=== PATIENT | male | born 1975 | race Caucasian/White ===

== ENCOUNTER 2024-09-13 15:39 | Emergency (ER) | payer BC, SELFPAY ==
[2024-09-13 15:42] VITALS: BP 158/108; PULSE 78; RESP 16; TEMP 36.4; O2SAT 99; BMI 29.7
--- NOTE | 2024-09-13 16:32 | EDS_ITS ---
HPI History of Present Illness Chief Complaint: Fatigue [facility] Medical History (Updated 09/13/24 @ 16:38 by Betty Arvealo) History of traumatic brain injury Home Medications ?Medication ?Instructions ?Recorded ?Last Taken ?Type NK 09/13/24 Unknown History Allergy/AdvReac Type Severity Reaction Status Date / Time No Known Allergies Allergy Verified 09/13/24 15:42 Social History Smoking Status: Never smoker EXAM Physical Exam Const Vital Signs: 09/13/24 15:42 09/13/24 16:27 09/13/24 17:40 Temperature 97.5 F L Temperature Source Temporal Pulse Rate 78 83 Respiratory Rate 16 18 Respiratory Effort Normal Respiratory Pattern Normal Blood Pressure 158/108 H 147/97 H Blood Pressure Mean 124 113 Pulse Ox 99 99 Oxygen Delivery Method Room Air Room Air 09/13/24 19:00 09/13/24 21:00 Temperature Temperature Source Pulse Rate 79 94 Respiratory Rate 21 H 16 Respiratory Effort Respiratory Pattern Blood Pressure 133/94 H Blood Pressure Mean 107 Pulse Ox 99 99 Oxygen Delivery Method Room Air MDM MDM MDM Narrative Medical decision making narrative: HISTORY OF PRESENT ILLNESS: 48 M here with fatigue. He states he has been excessively fatigued. He denies any specific symptom such as headache, chest pain, vomiting, diarrhea, fever, cough, abdominal pain, focal numbness or weakness. Per the family the patient's had 2 to 3 months of increasing somnolence, fatigue. Notes he is not doing his usual amount of work. 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 They state he is proximately 90 minutes from home when he called his that he could not drive home because he was excessively fatigued. He stopped at a truck stop and slept. This continued for a day and a half until his drove down to pick him up. They are concerned about his change in behavior and that is excessive fatigue may be related to a medical issue or psychiatric issue. Patient denies suicidal ideation, homicidal ideation, auditory visual donations. Does have access to firearms out of any wish to commit suicide REVIEW OF SYSTEMS: Pertinent positives: Fatigue Pertinent negatives: As per HPI PHYSICAL EXAM: Nursing triage notes reviewed, Vital signs reviewed Constitutional: please see mdm HENT: MMM Eyes: Pupils equal round and reactive to light, Extraocular muscles intact Neck: No stridor, no JVD, full neck ROM Lungs: Clear to auscultation, No wheezing or rales. No increased work of breathing, no conversational dyspnea, no accessory muscle use, no nasal flaring. No respiratory distress noted Heart: Regular rate and rhythm, No murmurs, No rubs and No gallops, 2+ distal pulses (radial, femoral, posterior tibial) in all extremities Abdomen: Soft, there is no tenderness, rigidity, rebound or guarding, no obvious peritoneal signs, no palpable pulsatile abdominal masses, no auscultated abdominal bruit : No CVAT Extremities: No edema Neuro: No new focal neurological deficits, cranial nerves II through XII intact, 5/5 strength in all present extremities. Intact sensation to light touch in all present extremities, 2+ reflexes bilateral patella tendons. Skin: No rash or lesions noted Psych: Blunted affect, decreased mood, tearful when walked in, does not appear to be responding to internal stimuli, goal-directed thought process MEDICAL DECISION MAKING: Chief Complaint: Fatigue, depression External records reviewed: No recent ED visits or hospitalizations noted, reviewed allergies, problem list, vital signs and current medications Factors affecting care: none Social determinants of health: Denies illicit drug History obtained from others: Family Consults: Neurosurgery spoke with Dr. Orozco at [facility] who agreed to accept the patient ED to ED transfer. MDM Narrative: The patient was initially hypertensive with a blood pressure 158/108, afebrile, nontoxic-appearing. Exam with out focal neurologic deficits. I considered the following differential diagnosis: ICH, metabolic or infectious encephalopathy, psychiatric issue (depression) ALL IMAGES (IF OBTAINED) HAVE BEEN PERSONALLY REVIEWED AND INTERPRETED BY MYSELF. CT scan of the brain showed brain mass CBC showed leukocytosis suggestive of systemic inflammation, no anemia or thrombocytopenia BMP with no significant lecture abnormalities, noted hemolyzed hide per kalemia, no acute kidney injury LFTs show no evidence of hepatobiliary pathology. Urine tox cream negative Serum alcohol negative TSH low not suggestive of hypothyroidism The patient and/or family, caregivers express understanding. The patient and/or family, caregivers agrees with the plan. Shared decision making: I will have a discussion with the patient and or visitors regarding risk/benefits of further testing or admission. They will be made aware of of the risk/benefits inherent in this decision they will be given the opportunity to voice understanding. Total critical care time today provided was at least 0 minutes. This excludes separately billable procedures. Critical care time (if documented) is secondary to the patient having high probability of clinically significant/life threatening deterioration in the patient's condition which required my urgent intervention. Impression: 1. Change in behavior 2. Brain mass Dispo: Transfer to higher level [facility] to undergo further neurologic/neurosurgical/oncologic evaluation This note was generated with Familiar dictation software. It may contain incorrect words, spelling, and punctuation that were not noted in review of the chart prior to signing. Lab Data Labs: Laboratory Results - last 24 hr 09/13/24 09/13/24 16:30 17:50 WBC 17.6 H RBC 5.20 Hgb 17.1 H Hct 49.5 MCV 95.2 H MCH 32.9 H MCHC 34.5 RDW Std Deviation 46.5 H RDW Coeff of Ed 13.2 Plt Count 250 MPV 10.7 Immature Gran % (Auto) 0.500 Neut % (Auto) 81.1 H Lymph % (Auto) 10.4 L Angelina % (Auto) 7.5 Eos % (Auto) 0.1 Baso % (Auto) 0.4 Absolute Neuts (auto) 14.2 H Absolute Lymphs (auto) 1.83 Nucleated RBC % 0 Sodium 139 Potassium 5.3 H Chloride 106 Carbon Dioxide 23.0 Anion Gap 10 BUN 23 H Creatinine 1.02 Estim Creat Clear Calc 109.99 Est GFR (MDRD) Af Amer 101 Est GFR (MDRD) Non-Af 83 BUN/Creatinine Ratio 22.5 H Glucose 118 H Calcium 9.1 Total Bilirubin 0.90 Direct Bilirubin < 0.05 AST 46 H ALT 24 Alkaline Phosphatase 72 Troponin I High Sens 3 Total Protein 7.8 Albumin 3.7 Globulin 4.1 TSH 0.338 L Free T4 1.42 Free T3 pg/dL 1.8 L Urine Opiates Screen NEGATIVE Urine Methadone Screen NEGATIVE Ur Barbiturates Screen NEGATIVE Ur Phencyclidine Scrn NEGATIVE Ur Amphetamines Screen NEGATIVE MDMA (Ecstasy) Screen NEGATIVE U Benzodiazepines Scrn NEGATIVE Urine Cocaine Screen NEGATIVE U Cannabinoids Screen NEGATIVE Ur Drug Screen Comment Ethyl Alcohol < 3.0 Radiography Diagnostic Testing: Clinical Impression(s) from Imaging Studies Brain CT 09/13/24 16:52 IMPRESSION: Right greater than left frontal mass with associated coarse calcification on the left. This involves the genu of the corpus callosum. There is effacement of the frontal horns of the lateral ventricles. Recommend follow-up MRI with and without IV contrast to exclude neoplasm. Electronically Signed: Helder Phillips MD at 18:31 EST , Discharge Plan Triage Chief Complaint: Fatigue ED Provider: Hugo Paul Dx/Rx/DC Orders Prescriptions: No Action NK Primary Care Provider: Ez Lee Referrals: Ez Lee MD [Primary Care Provider] - Print Language: Citizen Of [place]
--- NOTE | 2024-09-13 16:52 | CT_ITS ---
STUDY: CT BRAIN WITHOUT CONTRAST REASON FOR EXAM: Male, 48 years old. change in behavior RADIATION DOSAGE (If Supplied By Facility): CTDIvol = ( 44.99 ) mGy, DLP = ( 846.73 ) mGycm TECHNIQUE: Transaxial CT imaging of the brain was performed without administration of intravenous contrast material. Individualized dose optimization techniques were used for this CT. The protocol utilizes one or more of the following dose reduction techniques: automated exposure control, adjustment of mA and/or kV according to patient size,and/or use of iterative reconstruction technique. COMPARISON: No relevant priors. FINDINGS: Normal soft tissue structures. Remote Right frontal patrizia hole healed. Possible old left frontal patrizia holes also. Ill-defined hypodense mass right greater than left frontal lobe involving the genu of the corpus callosum measuring 4.9 x 7.1 cm in AP and transverse dimensions. Coarse calcifications noted along the margin in the left frontal lobe. Normal white matter tracts of the cerebral hemispheres. Normal basal ganglia and thalami. Normal brainstem. Normal cerebellum. There is no intracranial hemorrhage. There are no findings of an acute ischemic infarction. Normal visualized paranasal sinuses. CT/Brain/Head without Contrast IMPRESSION: Right greater than left frontal mass with associated coarse calcification on the left. This involves the genu of the corpus callosum. There is effacement of the frontal horns of the lateral ventricles. Recommend follow-up MRI with and without IV contrast to exclude neoplasm. Electronically Signed: Helder Phillips MD at 18:31 EST ,
[2024-09-13 17:18] LABS: Absolute Lymphocyte Count 1.83 X10^3/uL (0.83-4.51); Absolute Neutrophil Count 14.2 X10^3/uL (2.0-7.7); Basophil# 0.07 X10^3/uL; Basophil% 0.4 % (0-1); Eosinophil# 0.02 X10^3/uL; Eosinophils% 0.1 % (0-5); Hematocrit 49.5 % (40-54); Hemoglobin 17.1 g/dL (13.0-16.5); Lymphocyte # 1.83 X10^3/ul (0.83-4.51); Lymphocyte % 10.4 % (19-41); Mean Corp Hgb Conc 34.5 g/dL (32-36); Mean Corpuscular Hgb 32.9 pg (27.0-32.0); Mean Corpuscular Volume 95.2 fL (80-94); Mean Platelet Vol. 10.7 fl (6.2-12.0); Monocyte# 1.31 X10^3/uL; Monocyte% 7.5 % (0-10); NRBC Flagged by Analyzer 0 % (0-5); Neutrophil # 14.23 X10^3/uL (2.7-7.7); Neutrophil % 81.1 % (47-70); Platelet Count 250 K/mm3 (150-450); RBC Distribution Width CV 13.2 % (11.6-14.6); RBC Distribution Width SD 46.5 fl (35.1-43.9); White Blood Count 17.6 K/mm3 (4.4-11.0)
[2024-09-13 17:28] LABS: Alcohol, Blood (Medical)-Serum < 3.0 mg/dL
[2024-09-13 17:40] VITALS: BP 147/97; PULSE 83; RESP 18; O2SAT 99
[2024-09-13 18:33] LABS: Amphetamine Urine VISTA NEGATIVE (<1000 ng/mL); Barbiturate Urine VISTA NEGATIVE (< 200 ng/mL); Benzodiazepine Urine VISTA NEGATIVE (< 200 ng/mL); Cocaine Urine VISTA NEGATIVE (< 300 ng/mL); Ecstacy Urine VISTA NEGATIVE (< 500 ng/mL); Methadone Urine VISTA NEGATIVE (< 300 ng/mL); PCP Urine VISTA NEGATIVE (< 25 ng/mL); THC Urine VISTA NEGATIVE (< 50 ng/mL); Vista UDS pH Range 5
[2024-09-13 18:33] LABS: AST(SGOT) 46 U/L (15-37); Alanine Aminotransfer ALT/SGPT 24 U/L (16-61); Albumin, Serum 3.7 g/dL (3.2-5.0); Alkaline Phosphatase 72 U/L (45-117); Anion Gap 10 (5-15); BUN 23 mg/dL (7-18); BUN/Creat Ratio 22.5 RATIO (10-20); Bilirubin, Direct < 0.05 mg/dL (0.00-0.30); Calcium,Total 9.1 mg/dL (8.5-10.1); Chloride 106 mmol/L (98-107); Creatinine, Serum 1.02 mg/dL (0.70-1.30); EST Glomerular Filtration Rate 83 mL/min (>60); Est Glom Filt Rate - Afr Amer 101 mL/min (>60); Estimated Creatinine Clearance 109.99 ml/min; Free T3 1.8 pg/mL (2.18-3.98); Globulin 4.1 g/dL (2.2-4.2); Glucose 118 mg/dL (74-106); Potassium 5.3 mmol/L (3.5-5.1); Protein, Total 7.8 g/dL (6.4-8.2); Sodium Level 139 mmol/L (136-145); T4 Free Direct 1.42 ng/dL (0.76-1.46); Thyroid Stim Hormone (TSH) 0.338 uIU/mL (0.358-3.740); Troponin-I HS 3 pg/mL (3.0-78.0)
[2024-09-13 19:00] VITALS: PULSE 79; RESP 21; O2SAT 99
[2024-09-13 21:00] VITALS: BP 133/94; PULSE 94; RESP 16; O2SAT 99
[2024-09-13] MEDS: dexAMETHasone 10 MG/ML Vial IV (21:46)
[2024-09-13] MEDS: Metoclopramide 10 MG/2 ML Vial 5 MG IV (21:46)
[2024-09-13 22:49] VITALS: BP 158/105; PULSE 98; RESP 26; TEMP 36.6; O2SAT 99
== END 2024-09-13 22:51 | disposition short-term general hospital (02) ==
PROVIDERS: Emergency Provider Emergency Medicine; PCP Family Medicine; Referring Provider Emergency Medicine; Visit Provider Emergency Medicine
DX: G93.9 Disorder of brain, unspecified (principal); R46.89 Other symptoms and signs involving appearance and behavior; Z87.820 Personal history of traumatic brain injury
CPT/HCPCS: 70450; 80048; 80076; 80307; 82077; 84439; 84443; 84481; 84484; 85025; 93005; 96374; 96375; 99284

== ENCOUNTER → 2024-10-18 | Outpatient (CLI) | payer BC, SELFPAY ==
--- NOTE | 2024-10-18 15:03 | MRI_ITS ---
STUDY: MRI BRAIN WITH AND WITHOUT CONTRAST REASON FOR EXAM: Male, 48 years old. glioblastoma -- eval current extent of disease TECHNIQUE: Standardized multiplanar fat and water weighted pulse sequences were obtained. IV 20ml Clariscan was administered for the contrast portion of the examination. COMPARISON: September 14, 2024 FINDINGS: There is a large heterogeneously enhancing mass with focal cystic or necrotic component involving both frontal lobes with involvement of the genu of the corpus callosum measuring approximately 3.83 x 4.8 x 3.72 cm with associated vasogenic edema in both frontal lobes more pronounced on the right. . There are also bilateral 4 to 5 mm enhancing nodules in the frontal lobes also likely metastatic.. There is a heterogeneously enhancing nodule in the left thalamus measuring approximately 1.23 x 1.29 cm most likely representing metastasis. . There is no extra-axial fluid accumulation. Normal flow voids within the major intracranial circulation suggesting patency by spin echo criteria. Normal venous enhancement. There is no enhancing intra-axial or extra-axial abnormality. Normal sella turcica, pituitary gland, infundibular stalk, optic chiasm and hypothalamus. Normal tectal plate and pineal gland. Normal midbrain, armen and medulla. Normal cerebellum. Normal basal cisterns. Normal bilateral temporal bones. Normal bilateral internal auditory canals. No demonstrated orbital abnormality, within the constraints of a routine brain study. Normal visualized paranasal sinuses. Normal calvarium and skull base. Normal visualized soft tissue structures. Normal visualized upper cervical spine. The primary lesion in the midline is not changed significantly in size since previous exam nor are the small metastatic nodules in the frontal lobes. The left thalamic lesion has increased in size and demonstrates increasing cystic or necrotic changes No new lesions are observed MRI/Brain W/WO Contrast IMPRESSION: Relatively stable appearance to primary GBM with small bilateral frontal lobe metastases. Thalamic metastasis has increased in size slightly and demonstrates evolving cystic or necrotic changes since prior exam. Electronically Signed: Terry Brand MD at 17:33 EST ,
== END | disposition home or self-care (01) ==
LOC: MRI 15:02
PROVIDERS: PCP Family Medicine; Referring Provider Student in an Organized Health Care Education/Training Program; Visit Provider Student in an Organized Health Care Education/Training Program
DX: C71.1 Malignant neoplasm of frontal lobe (principal)
CPT/HCPCS: 70553; A9575; A4216

== ENCOUNTER → 2024-10-31 | Outpatient (CLI) | payer BC, SELFPAY ==
[2024-10-31] MEDS: Pentamidine Isethionate 300 MG, Water For Injection,Sterile 6 ML INHALATION (13:55)
== END | disposition home or self-care (01) ==
LOC: PSN 13:38
PROVIDERS: PCP Family Medicine; Referring Provider Nurse Practitioner Family; Visit Provider Nurse Practitioner Family
DX: C71.9 Malignant neoplasm of brain, unspecified (principal); Z29.89 Encounter for other specified prophylactic measures
CPT/HCPCS: 94642

== ENCOUNTER → 2024-11-28 | Outpatient (CLI) | payer BC, SELFPAY ==
[2024-11-28] MEDS: Pentamidine Isethionate 300 MG, Water For Injection,Sterile 6 ML INHALATION (14:02)
== END | disposition home or self-care (01) ==
LOC: PSN 13:50
PROVIDERS: PCP Family Medicine; Referring Provider Nurse Practitioner Family; Visit Provider Nurse Practitioner Family
DX: C71.9 Malignant neoplasm of brain, unspecified (principal); Z29.89 Encounter for other specified prophylactic measures
CPT/HCPCS: 77386; 94642

== ENCOUNTER → 2024-12-26 | Outpatient (CLI) | payer BC, SELFPAY ==
[2024-12-26] MEDS: Pentamidine Isethionate 300 MG, Water For Injection,Sterile 6 ML INHALATION (13:20)
== END | disposition home or self-care (01) ==
LOC: PSN 12:54
PROVIDERS: PCP Family Medicine; Referring Provider Nurse Practitioner Family; Visit Provider Nurse Practitioner Family
DX: C71.9 Malignant neoplasm of brain, unspecified (principal); Z29.89 Encounter for other specified prophylactic measures
CPT/HCPCS: 94642

== ENCOUNTER → 2025-01-07 | Outpatient (CLI) | payer BC, SELFPAY ==
--- NOTE | 2025-01-07 13:40 | MRI_ITS ---
PROCEDURE: BRAIN W/WO CONTRAST 01/07/2025 REASON FOR EXAM: GLIOBLASTOMA, S/P TREATMENT, EVAL DISEASE EXTENT. Status post surgery on September 21, 2024. Interim treatment with radiation therapy and chemotherapy. TECHNIQUE: Multiplanar, multisequence MRI of the brain without and with the administration of 20 mL of intravenous Clariscan. COMPARISON: MRI of the brain without and with contrast dated October 18, 2024. 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 The lesion is slightly more predominant on the right side. Previous maximum diameter coordinates showed a mass of 4.7 cm transverse by 4.0 cm AP by 4.3 cm craniocaudal. When measured similarly on the current study, along the same vectors the mass-lesion is approximated at 4.1 cm x 3.3 cm by 4.3 cm. The lesion again shows considerable central necrosis. 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 Multiple scattered abutting subcentimeter enhancing daughter nodules in the best radiata of both frontal lobes have diminished slightly overall. The surrounding infiltrating bifrontotemporal bright T2 signal changes with mass effect extending into the best radiata of both frontal lobes, most severe in the right superior to mid frontal of areas with extension out to a subcortical level, and compatible with tumoral infiltration and/or vasogenic interstitial edema, have shown considerable diminution and is evidenced by decreased mass effect and lessened effacement upon the frontal horns and bodies of the lateral ventricles. Lesser involvement of the right thalamus with extension down to the right cerebral peduncle and top of the midbrain is also noted. Patchy diffusion restriction in the areas of abnormal enhancement persists. No interim appearance of any hemorrhagic component is identified. There is no evidence of development of subdural hematoma. There is no evidence of uncal herniation and there is no evidence of cerebellar tonsillar herniation. There is no evidence of metastatic involvement of the skull. MRI/Brain W/WO Contrast IMPRESSION: Slight diminution in size of the central mass and decreased bifrontal daughter nodules with bilateral areas of enhancing involvement but with decreased peripheral mass effect with lessened effacement of the ventricular system of the known extensive bilateral glioblastoma multiforme due to decreased surrounding edema since Saurav toure 2024. Reading Location: [place] [id number]
== END | disposition home or self-care (01) ==
LOC: MRI 13:23
PROVIDERS: PCP Family Medicine; Referring Provider Student in an Organized Health Care Education/Training Program; Visit Provider Student in an Organized Health Care Education/Training Program
DX: C71.9 Malignant neoplasm of brain, unspecified (principal)
CPT/HCPCS: 70553; A9575

== ENCOUNTER → 2025-01-10 | Outpatient (CLI) | payer BC, SELFPAY ==
--- NOTE | 2025-01-10 15:49 | VDLE_ITS ---
Reason For Study Reason For Study: Swelling RIGHT LEFT GSV is normal. GSV is normal. RT PerV is compressible. CFV is compressible, spontaneous, phasic, competent, Acute deep vein thrombosis is noted in the CFV, FV, and demonstrates normal augmentation. POP V, T/P Trunk, PTV, Gastroc V, and Soleus V. It is FV is compressible, spontaneous, phasic, competent dilated and NONCOMPRESSIBLE. and demonstrates normal augmentation. Procedure POP V is compressible, spontaneous, phasic, competent This is a venous duplex using B-mode, color flow and and demonstrates normal augmentation. spectral Doppler. T/P Trunk is compressible. Exam performed in department. PTV is compressible. A preliminary report was called and/or faxed to Rachel, LT PerV is compressible. Dr. Dallas's Office. VL/Venous Duplex US - Abhishek Extrem Interpretation Summary Acute deep vein thrombosis noted in the right common femoral vein, femoral vein , popliteal vein, tibioperoneal trunk vein, posterior tibial vein, gastrocnemius vein, soleus vein. Deep veins of the left lower extremity are patent and compressible segmentally. There is no evidence of left lower extremity deep vein thrombosis. The bilateral great saphenous veins appear baeza nt and compressible segmentally. Ordering Physician: Geoff Dallas Referring Physician: MD Jesus Ez Performed By: Radha Bills RVT
== END | disposition home or self-care (01) ==
LOC: CVS 15:48
PROVIDERS: PCP Family Medicine; Referring Provider Internal Medicine Medical Oncology; Visit Provider Internal Medicine Medical Oncology
DX: I82.411 Acute embolism and thrombosis of right femoral vein (principal); I82.431 Acute embolism and thrombosis of right popliteal vein; I82.441 Acute embolism and thrombosis of right tibial vein; I82.451 Acute embolism and thrombosis of right peroneal vein; I82.461 Acute embolism and thrombosis of right calf muscular vein; Z79.52 Long term (current) use of systemic steroids
CPT/HCPCS: 93970

== ENCOUNTER 2025-01-17 10:37 | Emergency (ER) | payer OTHER, SELFPAY ==
[2025-01-17 10:39] VITALS: BP 119/87; PULSE 110; RESP 18; TEMP 36.2; O2SAT 97
[2025-01-17 11:20] VITALS: BMI 31.8
[2025-01-17 11:39] LABS: Absolute Lymphocyte Count 1.21 X10^3/uL (0.83-4.51); Absolute Neutrophil Count 13.8 X10^3/uL (2.0-7.7); Basophil# 0.07 X10^3/uL; Basophil% 0.4 % (0-1); Eosinophil# 0.06 X10^3/uL; Eosinophils% 0.3 % (0-5); Hematocrit 46.9 % (40-54); Lymphocyte # 1.21 X10^3/ul (0.83-4.51); Mean Corp Hgb Conc 34.1 g/dL (32-36); Mean Corpuscular Hgb 34.1 pg (27.0-32.0); Mean Platelet Vol. 10.6 fl (6.2-12.0); Monocyte# 1.89 X10^3/uL; Monocyte% 10.9 % (0-10); NRBC Flagged by Analyzer 0 % (0-5); Neutrophil # 13.84 X10^3/uL (2.7-7.7); Neutrophil % 79.8 % (47-70); POSITIVE DIFFERENTIAL YES; Platelet Count 186 K/mm3 (150-450); RBC Distribution Width CV 14.3 % (11.6-14.6); RBC Distribution Width SD 52.1 fl (35.1-43.9); Red Blood Count 4.69 M/mm3 (4.6-6.2); White Blood Count 17.4 K/mm3 (4.4-11.0)
[2025-01-17] MEDS: 0.9% Normal Saline (1000mL) 1,000 ML 999 ML IV (11:42)
--- NOTE | 2025-01-17 11:50 | CT_ITS ---
PROCEDURE: ABDOMEN/PELVIS W IV CONT ONLY 01/17/2025 REASON FOR EXAM: RIGHT FLANK PAIN TECHNIQUE: Abdomen and pelvis CT with intravenous contrast. Coronal and Sagittal reconstruction series were provided. PATIENT PREPARATION: Per protocol ORAL CONTRAST TYPE: None. CONTRAST: Isovue-300 VOLUME: 76 mL Gauge IV One or more dose reduction techniques were used (e.g., Automated exposure control, adjustment of the mA and/or kV according to patient size, use of iterative reconstruction technique. RADIATION DOSE SUMMARY: CTDlvol: 17.5 mGy DLP: 1453.69 mGycm COMPARISON: None FINDINGS: Lung bases: Minimal bilateral pleural effusions slightly greater on the right side. Increased markings at the lung bases suggestive of either atelectasis and/or early infiltrate. Liver: Normal size. No mass. Gallbladder: Unremarkable Spleen: Normal size. Pancreas: Normal size without evidence of mass surrounding inflammation or ductal dilation. Adrenals: Unremarkable Kidneys: Normal renal sizes. No hydronephrosis. Bladder: Unremarkable Bilateral inguinal hernias containing fat right greater than left. Small umbilical hernia. Bowel: No bowel obstruction. Appendix: Unremarkable Lymph nodes: No suspicious lymph node enlargement. Vasculature: Mild diffuse atherosclerotic calcifications are noted. Peritoneum / Retroperitoneum: Unremarkable Bones: Loss of the normal lumbar lordosis. CT/Abdomen/Pelvis W IV Cont ONLY IMPRESSION: Small umbilical hernia and bilateral inguinal hernias containing fat right grea ter than left. Minimal bilateral pleural effusions with bibasilar atelectasis and/or early inf iltrate. Reading Location: [place] [id number]
--- NOTE | 2025-01-17 11:56 | EX.ED.DYSGE1 ---
HPI History of Present Illness Chief Complaint: Abd Pain Narrative Narrative: Chief complaint and HPI: 49-year-old male with past medical history of glioblastoma currently on monthly chemotherapy presents for evaluation of right flank pain. Patient follows with Dr. Dallas. History taken by patient as well as medical record. Patient is on daily prednisone for his glioblastoma. He started monthly chemotherapy which last dose was Tuesday. He states yesterday he developed right flank pain that disappeared but reoccurred today. He denies any fever, chills, shortness of breath, chest pain, nausea, vomiting, diarrhea, dysuria, testicular pain, back pain. Patient states he suffers from constipation but his bowel movements have actually been regular. On chart review, patient was just recently diagnosed with right lower extremity DVT. Ultrasound shows DVT in the CFV, FV, popliteal vein, T/P trunk, PTV, gastric venous and soleus. He is currently on Eliquis and states that he has not missed any of his doses. He states due to his glioblastoma he has luminal movement on the right which is why they believe he developed a blood clot. Review of systems: See HPI Medications: As listed on the chart Allergies: As listed on the chart PFSH: Per chart Vital signs: As listed on the chart. Reviewed. Physical exam: Gen: A&O x3, NAD Head: Normocephalic, atraumatic Eyes: No sclera icterus, conjunctiva clear ENT: Moist mucous membranes Neck: Trachea midline, No JVD CV: RRR, no murmurs, right lower extremity is swollen compared to the left-patient's baseline since being diagnosed with blood clot Resp: Lungs CTA BL, no w/r/c GI: Abd soft, distended-patient states that this is his baseline since being diagnosed with cancer, non-tender, no r/r/g : No CVA tenderness. Circumcised penis. No penile tenderness or discharge. No penile or testicular swelling. Normal lie and position of the testicles. No testicular tenderness, masses, or skin changes. No rashes. Musc: Full ROM, no deformity, back nontender Skin: Warm, dry Neuro: Alert, oriented, grossly intact, sensation intact Psych: Cooperative, appropriate mood and affect [facility] Medical History (Updated 01/17/25 @ 15:[address] Ye Sparks DO) Headache Long-term current use of steroids Encounter for education Need for pneumocystis prophylaxis Status post stereotactic brain biopsy Glioblastoma multiforme History of traumatic brain injury Home Medications ?Medication ?Instructions ?Recorded ?Last Taken ?Type acetaminophen 325 mg tablet 325 mg PO ONCE PRN 10/05/24 Unknown History (Tylenol) docusate sodium 100 mg capsule 100 mg PO QDAY PRN 10/11/24 Unknown History ondansetron 4 mg disintegrating 4 mg PO Q8H PRN nausea and 10/23/24 Unknown Rx tablet vomiting #30 tabs omeprazole 20 mg capsule,delayed 20 mg PO QDAY #30 caps 10/29/24 Unknown Rx release temozolomide 180 mg capsule 180 mg PO QDAY 11/30/24 Unknown History sennosides 8.6 mg-docusate sodium 1 tab-cap PO QHS #30 caps 01/04/25 Unknown Rx 50 mg capsule (Senna Plus) apixaban 5 mg (74 tabs) tablets in See Rx Instructions PO PER PKG DIR 01/10/25 Unknown Rx a dose pack (EliquLocalGuiding DVT-PE Treat #74 tabs 30D Start) dexamethasone 2 mg tablet 2 mg PO QDAY 01/10/25 Unknown History Allergy/AdvReac Type Severity Reaction Status Date / Time No Known Allergies Allergy Verified 01/17/25 10:39 Family History Father Parkinson's disease Social History Smoking Status: Never smoker alcohol intake: current alcohol intake frequency: holidays/special occasions only substance use type: does not use EXAM Physical Exam Const Vital Signs: 01/17/25 10:39 01/17/25 12:37 01/17/25 14:00 Temperature 97.2 F L Temperature Source Temporal Pulse Rate 110 H 95 89 Respiratory Rate 18 14 14 Blood Pressure 119/87 H 130/87 H 138/91 H Blood Pressure Mean 97 101 106 Pulse Ox 97 96 97 Oxygen Delivery Method Room Air Room Air Room Air 01/17/25 15:28 Temperature 98.4 F Temperature Source Pulse Rate 87 Respiratory Rate 15 Blood Pressure 134/90 H Blood Pressure Mean 104 Pulse Ox 94 Oxygen Delivery Method MDM MDM MDM Narrative Medical decision making narrative: 49-year-old male with past medical history of glioblastoma currently on monthly chemotherapy presents for evaluation of right flank pain. Differential diagnosis includes but is not limited to bowel gas pain, constipation, appendicitis, propagating DVT, urolithiasis, UTI. NS bolus ordered and abdominal pain workup ordered including CT abdomen and pelvis. Patient offered pain medication but declined. States his pain is minimal. CBC with a leukocytosis of 17.4. On previous review patient always has a leukocytosis. Patient is on steroids. No anemia or platelet abnormality. BMP without significant electrolyte abnormality or TOR. Hepatic panel unremarkable except for some mild AST elevation at 44. Patient not endorsing any right upper quadrant abdominal pain and is not tender on exam in the abdomen. He has mild lactic acidosis at 2.1. Patient receiving fluids. I do not suspect infectious etiology for this. Suspect mild dehydration. Lipase unremarkable. UA positive for blood but negative for UTI. CT abdomen pelvis shows small umbilical hernia and bilateral inguinal hernias containing fat right greater than left. Minimal bilateral pleural effusions with bibasilar atelectasis and/or early filtrate. Patient is not endorsing any fever, chills, URI symptoms, cough, shortness of breath, chest pain. Suspect atelectasis and not early infiltrate. On reevaluation, patient's pain is still minimal. Him and his are updated of all the results. Given that patient does follow with oncology, I will reach out to Dr. Dallas as there is no clear etiology at this time. Patient was discussed with Dr. Dallas and he agrees with discharge home. Patient was educated to monitor for worsening signs and symptoms. Return back to the ED if symptoms change or worsen. Follow-up with PCP as well as oncology. Confirmed understand the plan. Impression: 1. Right flank pain, unclear etiology 2. History of glioblastoma on steroids and chemotherapy Lab Data Labs: Laboratory Results - last 24 hr 01/17/25 01/17/25 01/17/25 11:00 11:40 13:15 WBC 17.4 H RBC 4.69 Hgb 16.0 Hct 46.9 MCV 100.0 H MCH 34.1 H MCHC 34.1 RDW Std Deviation 52.1 H RDW Coeff of Ed 14.3 Plt Count 186 MPV 10.6 Immature Gran % (Auto) 1.600 H Neut % (Auto) 79.8 H Lymph % (Auto) 7.0 L Story % (Auto) 10.9 H Eos % (Auto) 0.3 Baso % (Auto) 0.4 Absolute Neuts (auto) 13.8 H Absolute Lymphs (auto) 1.21 Nucleated RBC % 0 [address] Review May foll Sodium 137 Potassium 5.1 Chloride 101 Carbon Dioxide 21.3 Anion Gap 15 BUN 20 H Creatinine 1.03 Estim Creat Clear Calc 111.38 Est GFR (MDRD) Non-Af 88 BUN/Creatinine Ratio 19.1 Glucose 90 Lactic Acid 2.1 H Calcium 9.7 Total Bilirubin 0.43 Direct Bilirubin < 0.08 AST 44 H ALT 40 Alkaline Phosphatase 78 Total Protein 8.2 Albumin 4.0 Globulin 4.2 Lipase 56 Urine Color Yellow Urine Clarity Clear Urine pH 5.0 Ur Specific Fowler 1.020 Urine Protein 15 H Urine Glucose (UA) Normal Urine Ketones Negative Urine Occult Blood 10 H Urine Nitrite Negative Urine Bilirubin Negative Urine Urobilinogen Normal Ur Leukocyte Esterase Negative Urine RBC 0 SEEN Urine WBC 0 SEEN Ur Squamous Epith Cells 0 SEEN Urine Bacteria 0 SEEN Urine Mucus 0 SEEN Radiography Diagnostic Testing: Clinical Impression(s) from Imaging Studies Abdomen/Pelvis CT 01/17/25 11:50 IMPRESSION: Small umbilical hernia and bilateral inguinal hernias containing fat right greater than left. Minimal bilateral pleural effusions with bibasilar atelectasis and/or early infiltrate. Reading Location: [place] [id number] Discharge Plan Triage Chief Complaint: Abd Pain ED Provider: Ye Sparks Dx/Rx/DC Orders Clinical Impression: Acute right flank pain Instructions: ED Abdominal Pain Unkn Cause Male... Prescriptions: No Action acetaminophen [Tylenol] 325 mg tablet 325 mg PO ONCE PRN docusate sodium 100 mg capsule 100 mg PO QDAY PRN dexamethasone 2 mg tablet 2 mg PO QDAY ondansetron 4 mg tablet,disintegrating 4 mg PO Q8H PRN (Reason: nausea and vomiting) Qty: 30 1RF omeprazole 20 mg capsule,delayed release(DR/EC) 20 mg PO QDAY Qty: 30 2RF temozolomide 180 mg capsule 180 mg PO QDAY Rx Instructions: must be taken on empty stomach Eliquis DVT-PE Treat 30D Start 5 mg (74 tabs) tablets,dose pack See Rx Instructions PO PER PKG DIR Qty: 74 0RF Rx Instructions: PO PER PKG DIR Senna Plus 8.6-50 mg capsule 1 tab-cap PO QHS Qty: 30 3RF Primary Care Provider: Care Physician,No Primary Referrals: Geoff Dallas MD [Med Staff - Active Staff] - 3-5 Days Elijah Suárez MD [Med Staff - Active Staff] - 3-5 Days Care Physician,No Primary [Primary Care Provider] - Activity Restrictions/Additional Instructions: Follow-up with primary care physician. Return back to ED if symptoms change or worsen. If you do not have a primary care physician follow-up with the 1 provided above. Follow-up with oncology. Print Language: Zambian Disposition Disposition: Home, Self Care Discharge Date/Time: 01/17/25 15:33
[2025-01-17 12:08] LABS: Differential Indicated SCAN CRITERIA MET
[2025-01-17 12:17] LABS: AST(SGOT) 44 U/L (<=37); Alanine Aminotransfer ALT/SGPT 40 U/L (<=46); Alkaline Phosphatase 78 U/L (40-129); Anion Gap 15 (5-15); BUN 20 mg/dL (4-19); BUN/Creat Ratio 19.1 RATIO (10-20); Bilirubin, Direct < 0.08 mg/dL (0.00-0.30); Calcium,Total 9.7 mg/dL (7.6-11.0); Carbon Dioxide 21.3 mmol/L (21.0-32.0); Chloride 101 mmol/L (98-108); Creatinine, Serum 1.03 mg/dL (0.70-1.20); EST Glomerular Filtration Rate 88 (>60); Estimated Creatinine Clearance 111.38 ml/min (50-250); Globulin 4.2 g/dL (2.2-4.2); Glucose 90 mg/dL (70-99); Lipase 56 U/L (13-75); Potassium 5.1 mmol/L (3.3-5.1); Protein, Total 8.2 g/dL (5.9-8.4); Sodium Level 137 mmol/L (133-145); Total Bilirubin 0.43 mg/dL (0.00-1.30)
[2025-01-17 12:19] LABS: Lactic Acid 2.1 mmol/L (0.0-2.0)
[2025-01-17 12:37] VITALS: BP 130/87; PULSE 95; RESP 14; O2SAT 96
[2025-01-17 12:59] LABS: Pathologist Review May foll
[2025-01-17 13:19] LABS: Bacteria 0 SEEN /hpf (None Seen); Mucous, Urine 0 SEEN /hpf (<or=2+); Red Blood Cells-Urine 0 SEEN /hpf (0-5); Squamous Epithelial Cells - UA 0 SEEN /hpf (0-5); White Blood Cells 0 SEEN /hpf (0-5)
[2025-01-17 13:20] LABS: Color, Urine Yellow (Yellow); Glucose, Dipstick Normal (Normal); Ketone-Dipstick Negative (Negative); Leukocyte Esterase-Dipstick Negative /ul (Negative); Nitrite-Dipstick Negative (Negative); Occult Blood-Urine 10 /ul (Negative); Protein-Dipstick 15 mg/dl (Negative); Urine Bilirubin Dipstick Negative (Negative); Urine Clarity Clear (Clear); Urine Urobilinogen Normal (Normal)
[2025-01-17 14:00] VITALS: BP 138/91; PULSE 89; RESP 14; O2SAT 97
[2025-01-17 15:28] VITALS: BP 134/90; PULSE 87; RESP 15; TEMP 36.9; O2SAT 94
[2025-01-17 15:41] LABS: Reflex Lactate? Y
== END 2025-01-17 15:33 | disposition home or self-care (01) ==
PROVIDERS: Emergency Provider Surgery; Visit Provider Surgery
DX: R10.9 Unspecified abdominal pain (principal); C71.9 Malignant neoplasm of brain, unspecified; Z79.52 Long term (current) use of systemic steroids
CPT/HCPCS: 74177; 80048; 80076; 81001; 83605; 83690; 85025; 96360; 99282; Q9967

== ENCOUNTER → 2025-01-23 | Outpatient (CLI) | payer OTHER, SELFPAY ==
[2025-01-23] MEDS: Pentamidine Isethionate 300 MG, Water For Injection,Sterile 6 ML INHALATION (13:18)
== END | disposition home or self-care (01) ==
LOC: PSN 12:58
PROVIDERS: Referring Provider Nurse Practitioner Family; Visit Provider Nurse Practitioner Family
DX: C71.9 Malignant neoplasm of brain, unspecified (principal); Z29.89 Encounter for other specified prophylactic measures
CPT/HCPCS: 94642

== ENCOUNTER → 2025-02-12 | Outpatient (CLI) | payer OTHER, SELFPAY ==
--- NOTE | 2025-02-12 14:45 | RAD_ITS ---
PROCEDURE: CHEST PA AND LATERAL (RADCXR), 02/12/2025 REASON FOR EXAM: COUGH TECHNIQUE: PA and lateral views of the chest were obtained. COMPARISON: 09/14/2024 ; note that images only are available for review, the report is not available at the time of the dictation. FINDINGS: Motion limited lateral view despite a repeat. Heart: Unremarkable. Mediastinum: Unremarkable. Lungs/pleura: Mild bibasilar/perihilar airspace disease. No pleural effusion or visible pneumothorax. Bones: Unremarkable. Lines and support devices: None. Other: None. RAD/Chest PA and Lateral IMPRESSION: 1. Mild airspace disease with appearance favorable for atelectasis/scarring as was present on motion limited CT 09/14/2024 although it is difficult to entirely exclude early/mild pneumonia. 2. Additional description as above. Reading Location: [id number]
== END | disposition home or self-care (01) ==
LOC: MTRAD 14:45
PROVIDERS: Referring Provider Physician Assistant; Visit Provider Physician Assistant
DX: R05.9 Cough, unspecified (principal)
CPT/HCPCS: 71046

== ENCOUNTER → 2025-02-13 | Outpatient (CLI) | payer OTHER, SELFPAY ==
--- NOTE | 2025-02-13 08:20 | MRI_ITS ---
PROCEDURE: BRAIN W/WO CONTRAST 02/13/2025 REASON FOR EXAM: FOLLOW UP TREATED GBM TECHNIQUE: Brain MRI without and with intravenous contrast with additional dedicated imaging of the IACs. Multiplanar and multisequence images were obtained. CONTRAST: 20 cc IV Clariscan was administered. COMPARISON: None available FINDINGS: BRAIN/PARENCHYMA: 3.9 x 4.3 x 3.9 cm (AP by TV by cc) mixed T2 hyperintensity thick-walled heterogeneously enhancing mass in the frontal lobe, abutting the genu and rostrum of the corpus callosum, with midline extension, compatible with known glioblastoma multiforme. There is significant surrounding T2/FLAIR hyperintensity, most prominent in the anterior right frontal lobe, compatible with vasogenic edema. A few smaller surrounding similar appearing lesions are noted (series 12, image 22). There is restricted diffusion within the mass, as well as scattered foci of susceptibility, likely secondary to intrinsic hemorrhage. There is near complete effacement of the frontal horn lateral ventricles. Additionally, within the left thalamic capsular region a smaller lesion with similar enhancement and signal characteristics is noted (series 6, image 12 and series 12, image 15), also compatible with GBM. There is significant mass effect with increased surrounding T2/FLAIR hyperintensity and partial effacement of the left perimesencephalic cistern. EXTRA-AXIAL SPACES: No abnormal extra-axial fluid collections. Patent basal cisterns and foramen magnum. VENTRICLES: No hydrocephalus. SCALP SOFT TISSUES & CALVARIUM: No significant abnormality. VISUALIZED SINUSES & MASTOIDS: No air-fluid levels in the paranasal sinuses. Mild paranasal sinus mucosal thickening. The mastoid air cells are clear. ARTERIAL FLOW VOIDS: Preserved major arterial flow voids indicating gross patency. MRI/Brain W/WO Contrast IMPRESSION: Heterogeneously enhancing multifocal masses as described above, with the domina nt mass of the genu and rostrum of the corpus callosum, with mass effect as described above. Similar appearing but smaller m ass, noted within the left thalamo-capsular region also with mass effect. Findings compatible with multifocal glioblastoma multif joseph. [facility]
== END | disposition home or self-care (01) ==
LOC: MRI 08:06
PROVIDERS: Referring Provider Student in an Organized Health Care Education/Training Program; Visit Provider Student in an Organized Health Care Education/Training Program
DX: C71.9 Malignant neoplasm of brain, unspecified (principal)
CPT/HCPCS: 70553; A9575

== ENCOUNTER → 2025-02-20 | Outpatient (CLI) | payer OTHER, SELFPAY ==
[2025-02-20] MEDS: Pentamidine Isethionate 300 MG, Water For Injection,Sterile 6 ML INHALATION (13:24)
== END | disposition home or self-care (01) ==
LOC: PSN 13:03
PROVIDERS: Referring Provider Nurse Practitioner Family; Visit Provider Nurse Practitioner Family
DX: C71.9 Malignant neoplasm of brain, unspecified (principal); Z29.89 Encounter for other specified prophylactic measures
CPT/HCPCS: 94642

== ENCOUNTER → 2025-02-25 | Outpatient (CLI) | payer OTHER, SELFPAY ==
--- NOTE | 2025-02-25 15:32 | VDLE_ITS ---
Reason For Study : Pulmonary embolism RIGHT LEFT GSV is normal. GSV is normal. CFV is compressible, spontaneous, phasic, competent CFV is compressible, spontaneous, phasic, competent, and demonstrates normal augmentation. and demonstrates normal augmentation. Acute deep vein thrombosis is noted in the FV, PopV, FV is compressible, spontaneous, phasic, competent T/P Trunk and PTV. Vessels are partially and demonstrates normal augmentation. noncompressible with minimal venous flow noted. POP V is compressible, spontaneous, phasic, competent RT PerV is compressible. and demonstrates normal augmentation. Procedure T/P Trunk is compressible. This is a venous duplex using B-mode, color flow and PTV is compressible. spectral Doppler. LT PerV is compressible. Exam performed in department. Compared to 01/10/2025. A preliminary report was called and/or faxed to [facility]. VL/Venous Duplex US - Abhishek Extrem Interpretation Summary Acute deep vein thrombosis noted in right femoral vein, popliteal vein, tibiope roneal trunk vein, posterior tibial vein. Deep veins of the left lower extremity are patent and compressible segmentally. There is no evidence of left lower extremity deep vein thrombosis. The bilateral great saphenous veins appear baeza nt and compressible segmentally Ordering Physician: Geoff Dallas Performed By: Freida Ornelas RVT
== END | disposition home or self-care (01) ==
LOC: CVS 15:30
PROVIDERS: Referring Provider Internal Medicine Medical Oncology; Visit Provider Internal Medicine Medical Oncology
DX: I82.411 Acute embolism and thrombosis of right femoral vein (principal); I70.92 Chronic total occlusion of artery of the extremities
CPT/HCPCS: 93970

== ENCOUNTER → 2025-03-20 | Outpatient (CLI) | payer OTHER, SELFPAY ==
[2025-03-20] MEDS: Pentamidine Isethionate 300 MG, Water For Injection,Sterile 6 ML INHALATION (13:18)
== END | disposition home or self-care (01) ==
LOC: PSN 12:55
PROVIDERS: Referring Provider Nurse Practitioner Family; Visit Provider Nurse Practitioner Family
DX: C71.9 Malignant neoplasm of brain, unspecified (principal)
CPT/HCPCS: 94642

== ENCOUNTER → 2025-04-08 | Outpatient (CLI) | payer OTHER, SELFPAY ==
--- NOTE | 2025-04-08 12:49 | MRI_ITS ---
PROCEDURE: BRAIN W/WO CONTRAST 04/08/2025 REASON FOR EXAM: HEADACHE, FREQUENT FALLS, 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 CONTRAST: 23 cc Clariscan COMPARISON: February 13, 2025 FINDINGS: Brain: There is an enhancing lesion in the left frontal pole measuring 1.0 x 0.8 cm, image 123/176, 0.5 by 0.4 cm on the prior. There is a enhancing lesion in the left frontal pole measuring 0.8 x 0.8 cm, image 117, 0.7 x 0.6 cm on the prior. There is a dominant mass which extends into the right and left frontal lobes and crosses of the falx and anterior corpus callosum which shows increased bulk and peripheral nodularity, measuring approximately 6.2 by 4.6 cm, image 104/176, 4.8 by 4.2 cm on the prior. There is a 0.3 cm enhancing focus in the left periventricular deep white matter, with an adjacent 0.2 x 0.2 cm enhancing nodule, image 118/176, slightly increased. There is a 2.3 by 1.6 cm enhancing lesion in the left thalamus image 83/176, 1.8 by 1.4 cm on the prior, with restricted diffusion components. There is an enhancing lesion in the left temporal lobe, 0.9 x 0.7 Cm, image 98/176, 0.5 by 0.7 cm on the prior. There 0.5 cm midline shift of the interventricular septum towards the left, unchanged. MRI/Brain W/WO Contrast IMPRESSION: There is an enhancing lesion in the left frontal pole measuring 1.0 x 0.8 cm, i mage 123/176, 0.5 by 0.4 cm on the prior. There is a enhancing lesion in the left frontal pole measuring 0.8 x 0.8 cm, im age 117, 0.7 x 0.6 cm on the prior. There is a dominant mass which extends into the right and left frontal lobes an d crosses of the falx and anterior corpus callosum which shows increased bulk and peripheral nodularity, measuring approximately 6 .2 by 4.6 cm, image 104/176, 4.8 by 4.2 cm on the prior. There is a 0.3 cm enhancing focus in the left periventricular deep white matter , with an adjacent 0.2 x 0.2 cm enhancing nodule, image 118/176, slightly increased. There is a 2.3 by 1.6 cm enhancing lesion in the left thalamus image 83/176, 1. 8 by 1.4 cm on the prior, with restricted diffusion components. There is an enhancing lesion in the left temporal lobe, 0.9 x 0.7 Cm, image 98 /176, 0.5 by 0.7 cm on the prior. There 0.5 cm midline shift of the interventricular septum towards the left, unc hanged. Reading Location: [facility]
== END | disposition home or self-care (01) ==
LOC: OPMRI 12:43
PROVIDERS: Referring Provider Nurse Practitioner Family; Visit Provider Nurse Practitioner Family
DX: C71.9 Malignant neoplasm of brain, unspecified (principal); R29.6 Repeated falls
CPT/HCPCS: 70553; A9575

== ENCOUNTER → 2025-04-22 | Outpatient (CLI) | payer OTHER, SELFPAY | END | disposition home or self-care (01) | LOC: PSN 10:37 | PROVIDERS: Referring Provider Nurse Practitioner Family; Visit Provider Nurse Practitioner Family | DX: Z29.89 Encounter for other specified prophylactic measures (principal); C71.9 Malignant neoplasm of brain, unspecified | CPT/HCPCS: 94642 ==

== ENCOUNTER 2025-05-03 14:30 | Outpatient (RCR) | payer OTHER, SELFPAY ==
--- NOTE | 2025-03-12 15:34 | HP.PTEVAL ---
Patient's Visit Information Visit Information Visit Information: LAMINE JOSEPH is a 49 year old M referred to Physical Therapy by Dr. Geoff Dallas MD with a diagnosis of Hemiparesis, malignant neoplasm of brain. Date of Evaluation: 03/12/25 Physical Therapist: Lilia Lipscomb DPT Visit Plan Frequency: 1x/Week Duration: 6 Weeks Plan: Right Hemiparesis- focus on gait, balance and functional mobility. Start slow and progress- has very little use of right LE Educated at [employer] and [employer] Subjective Subjective: Patient is here today due to a Gioblastoma and has lost a lot of movement in the right side. There was a blood clot in the right leg from his groin to the ankle- he has had a dopplar 2 weeks ago its getting smaller. They are unsure if its safe to do anything with his leg. He does not have a general MD. He is on eloquest since the end of December. The leg is not painful it just does not do what he wants it to do. He is still walking with a cane, walker and using a wheelchair. He also has a lot of issues with the whole arm. His hand stays in a closed position and his pushes them straight. He is looking to do more with his hand and arm. Right hand dominate. The right hand is also not painful. 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 He has help dressing with socks and shoes. They are doing chemo 1x a month- maintance with pills. He has about 2 good weeks then he has 1 week with chemo pills. He is not driving. Objective Objective: Posture: forward head, right UE held at side due to decreased strength and use Gait: jimmy walker- step to gait pattern- slides the foot on the floor due to lack of dorsiflexion with circumduction. HR/TR: unable in a sitting position SLS: unable but will weight shift to the right with verbal cues ROM: DF 0 degrees on the right- all other WFL Strength: Core: fair minus, Right: Hip: flexion: trace, Abd/Add: 4-/5, Extn: 3+/5, Knee: trace, Ankle: none noted- Left: 4+/5 throughout Flex: HS: severe, Gastroc: moderate Sensation: WNL to gross touch bilateral LE Balance/Special Test Scores Lower Extremity Functional Score: 12 30 Second Chair Rise Test Seconds: 1 Goals Goal 1:: Patient will be I with HEP and progression Goal Time Frame: 4-6 Weeks Goal 2:: Patient will ambulate >150 feet with LRD and mod I Goal Time Frame: 4-6 Weeks Goal 3:: Patient will asc/desc 8" stairs recip with LRD and mod I Goal Time Frame: 4-6 Weeks Goal 4:: Patient will perform 3 sit to stands without UE A in 30 seconds Goal Time Frame: 4-6 Weeks Goal 5:: Patient will report 80% improvement Rehabilitation Potential Physical Therapy Diagnosis: Patient presents with hypomobility- he has decreased right LE strength, flexibility, proprioception and muscular endurance leading to abnormal gait and increased difficulty with ADL's. Rehabilitation Potential: Fair Anticipated Interventions Therapeutic Exercise to Include: Strength training, Endurance training, Balance training, Coordination, Agility training, Body mechanics, Postural training, Flexibilty training, Gait and locomotor training, Neuromotor development, Dynamic Lumbar Stabilization and Scapular Strength/Stabilization For the Purpose of:: To improve muscle performance and motor function Text: Thank you for the opportunity to evaluate your patient. For Medicare and Medicare HMO plans, please review the plan of care and approve it. It will need to be FAXED BACK to us at [phone] for Medicare purposes. For Medicare only, by signing this I certify the plan of care. Please let me know if there are questions or concerns regarding this plan of care. Physician Signature: Date:
--- NOTE | 2025-03-14 15:28 | HP.OTEVAL ---
Patient's Visit Information Visit Information Visit Information: LAMINE JOSEPH is a 49 year old M, referred to Occupational Therapy by Dr. Geoff Dallas MD, with a diagnosis of right arm hemiparesis. Date of Evaluation: 03/14/25 Occupational Therapist: Dorothy Estrella Subjective Subjective: Patient arrived for OT evaluation with his . Patient has a blood clot in R LE, no restrictions were given. According to the most recent doppler, the blood clot is shrinking. Eval only approved, submitted for addtl visits. Home set-up: 1STE, no HR. two story home, BR and bathroom upstairs 14 steps to second story, no HR. On the main floor, there is bathroom with shower and a bed. When Anurag is on the chemo, he sleeps downstairs. There is a basement, but Anurag doesn't go down there. 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, Anurag's mom comes over to help when she leaves ROM Shoulder: R abd 90, scaption 30 deg Elbow: R flexion 120, ext -30 using gravity to assist Forearm: WNL pronation/supination Wrist: R wrist flexion 60, 35 ext Opposition: able to oppose all digits ROM Comments: L UE WNL all joints R hand - able to make a full fist and actively extend fingers Strength Elbow: R flexion 16.4#, Ext 19.2# Strength Comments: all other joints unable to accept any resistance except gravity Edema Other: swelling in R leg from blood clot Sensation Sensation Comments: reduced sensation in the R side of his body light touch sensation 2.83 both hands Visual/Perceptual Skills Comments: Patient wears glasses. He reports some dizziness with position change Cognitive Skills Cognitive Comments: Anurag's reports she is noticing some difficulty with his memory. He denies any concerns Transfers Transfers: supervision using FWW or jimmy cane around the house wheelchair for long distances Nine Hole Peg Left: 26.9 Comments: unable to complete with right hand but able to remove them with assist Quick DASH-Disab of Arm,Shoulder& Hand Quick DASH Score: 65.9075 Goals Goal:: Patient will increase strength for ADL's in R belting and webbing inspector with increase by 2# (atleast 13#) by d/c. Goal:: Patient will increase strength in R shoulder to help with ADL's with ability to actively lift into flexion against gravity at least 45 deg. Goal:: Patient will be educated on adaptive equipment available for self-care tasks by d/c. Goal:: Patient will complete LB dressing tasks (reported or observed) with moderate assist by d/c. Rehabilitation General Assessment: Patient arrived for OT evaluation s/p R UE fxn loss d/t gliobastoma location in brain. Pt currently undergoing oral radiation, at least for 3 more months. The glioblastoma is non-operable and patient reports plan is to cont oral chemo. He feels really fatigued the week of chemo and the week after and may have to adjust his therapy schedule because of this. Patient presents with decr function, ROM, and strength of R UE which limits all ADLs. He would benefit from skilled OT to improve fxnal use of R hand with AE, strengthening, and ROM execises. Ed today on PROM importance to maintain full ROM in R arm, escpecially shoulder external rotation as this is beginning to tighten. No need for hand splint at this time, as patient has full ROM. Discussed importance to cont to move R hand t/o the day. Rehabilitation Potential: Fair Anticipated Interventions Anticipated Interventions: A/AAROM/PROM, Strengthening, ADL Training, Caregiver Training and Home Program Visit Plan Frequency: 1x/Week Duration: 6 Months General Plan: Patient is going to come 1x/week for 12 weeks to start. Therapist recommended 2x/week but he prefers just once back to back with PT for 30 min sessions. Ed on adaptive equipment for dressing this date, plan to trial it at future sessions. Plan for ROM exercsises, strengthening, and adaptive tools to incr indep TEXT: Thank you for the opportunity to evaluate your patient. For Medicare and Medicare HMO plans, please review the plan of care and approve it. It will need to be FAXED BACK to us at [phone] for Medicare purposes. Please let me know if there are questions or concerns regarding this plan of care. Physician Signature: Date:
--- NOTE | 2025-07-09 12:09 | HP.OT.NRP ---
Patient Information Patient Information: LAMINE JOSEPH was seen in my office for initial evaluation on 03/14/25. The following Plan of Care was established for this patient: POC Established Initial Frequency: 1x/Week Initial Duration: 6 Months Plan: Continue POC: 12 weeks (1-2x week) Anticipated Interventions Anticipated Interventions: A/AAROM/PROM, Strengthening, ADL Training, Caregiver Training and Home Program Last Seen Last Seen: This patient was last seen in our office 05/03/25. Pertinent comments regarding their Occupational therapy will appear below: no further apts have been scheduled and due to time lapse in services pt is d/c at this time. At this point I will be discontinuing this patient from occupational therapy. I would be happy to see this patient again in the future if found appropriate by the physician. Thank you! Fany Xiong, OTR/L, CHT
== END 2025-05-03 19:00 | disposition home or self-care (01) ==
LOC: OT 14:30
PROVIDERS: Referring Provider Internal Medicine Medical Oncology; Visit Provider Internal Medicine Medical Oncology
DX: I69.851 Hemiplegia and hemiparesis following other cerebrovascular disease affecting right dominant side (principal); C71.9 Malignant neoplasm of brain, unspecified
CPT/HCPCS: 97110; 97116; 97162; 97166

== ENCOUNTER 2025-05-07 08:39 | Day surgery (SDC) | payer OTHER, SELFPAY ==
[2025-05-07] VITALS (10 sets, daily range): BP systolic 127–145; BP diastolic 87–94; PULSE 56–71; RESP 16–18; TEMP 36.3–36.9; O2SAT 95–99; BMI 33.0
[2025-05-07] MEDS: Lactated Ringers 1,000 ML 15 ML IV (09:33)
--- NOTE | 2025-05-07 09:33 | PRE.ANES_ITS ---
ASA Classification* ASA Classification ASA Classification: 3 Assessment & Plan Anesthesia* Anesthesia Assessment Anesthesia Assessment: Discussed sedation and/or anesthesia options, risks, benefits, and alternatives with patient/parents/legal guardian/POA. Questions invited. The patient/parents/legal guardian/POA seems to understand and agrees to proceed with anesthesia plan. Reviewed the physical assessment, medical history, allergy history and patient home medications list prior to surgery/procedure/anesthetic and documented any changes. Performed airway and anesthesia risk assessments. Anesthesia Type Anesthesia Type: MAC History Source History Obtained from:: Patient and Chart Anesthesia Focused Assessment* Temperature: 98.5 F Pulse Rate: 56 Blood Pressure: 127/87 Respiratory Rate: 16 Pulse Ox: 98 Airway Assessment Mouth opens: >3 cm Mallampati Score: I Labs Anesthesia Preop lab: CBC WBC 10.4 K/mm3 (4.4-11.0) 04/15/25 14:58 04/15/25 RBC 4.76 M/mm3 (4.6-6.2) 04/15/25 14:58 04/15/25 Hgb 15.7 g/dL (13.0-16.5) 04/15/25 14:58 04/15/25 Hct 46.8 % (40-54) 04/15/25 14:58 04/15/25 Plt Count 197 K/mm3 (150-450) 04/15/25 14:58 04/15/25 CHEMISTRY Potassium 4.1 mmol/L (3.3-5.1) 04/15/25 14:58 04/15/25 Sodium 139 mmol/L (133-145) 04/15/25 14:58 04/15/25 BUN 16 mg/dL (4-19) 04/15/25 14:58 04/15/25 Creatinine 0.96 mg/dL (0.70-1.20) 04/15/25 14:58 04/15/25 Glucose 104 mg/dL (70-99) H 04/15/25 14:58 04/15/25 TSH 0.338 uIU/mL (0.358-3.740) L 09/13/24 16:30 COAG Pre-Assessment Diagnosis/Proposed Procedure Planned Operative Procedure(s): (R) Insertion, Vascular Port right poss left Anesthesia History Anesthesia History - executive director: Anesthesia History - executive director Hx Hospitalization Yes: BRAIN BIOPSY 04/18/25 13:09 Any Problems With Anesthesia No 04/18/25 13:09 Cholinesterase deficiency No 04/18/25 13:09 You/Your Family Experience No 04/18/25 13:09 fever (hyperthermia) with Relationship Recent Exposure to Contagious No 05/07/25 09:29 Disease Does patient have nerve No 04/18/25 13:09 stimulator Patient instructed to have device shut off --Does patient have Pacemaker No 05/07/25 09:29 or ICD? When Was Last Pacemaker Check QUESTION #4 FULL TEXT: You/Your Family Experience fever (hyperthermia) with Anesthesia Last Oral Intake Last Oral intake: Last Oral Intake NPO since 08:00 05/07/25 09:29 Meds taken in AM with sips of Yes 05/07/25 09:29 water? Meds patient instructed to DEXAMETHASONE 05/07/25 09:29 take am of surgery PONV PONV - executive director: PONV - executive director Female No 04/18/25 13:09 HX of Motion Sickness No 04/18/25 13:09 HX of N/V After Surgery No 04/18/25 13:09 Non-Smoker Yes 04/18/25 13:09 Duration of Surgery greater No 04/18/25 13:09 than 60 minutes Number of Risk Factors 1 04/18/25 13:09 PONV Score Low Risk 04/18/25 13:09 Height & Weight Height & Weight: Anesthesia: Height & Weight Height 6 ft 1 in 05/07/25 09:29 Weight: 113.398 kg 05/07/25 09:29 Body Mass Index (BMI) 33.0 05/07/25 09:29 Respiratory Assessment Respiratory Assessment - executive director: Respiratory Tract Infection Hx - executive director Hx Respiratory Tract Infection No 04/18/25 13:09 STOP Sleep Apnea STOP Sleep Apnea - executive director: STOP Sleep Apnea - executive director Hx Hypertension No 04/18/25 13:09 Hx Sleep Apnea No 04/18/25 13:09 CPAP BIPAP Do you snore loudly (louder No 04/18/25 13:09 than talking or can be heard Do you often feel tired/ No 04/18/25 13:09 fatigued/ sleepy during daytime? Has anyone observed you stop No 04/18/25 13:09 breathing during sleep? STOP Results Negative 04/18/25 13:09 QUESTION #5 FULL TEXT : Do you snore loudly (louder than talking or can be heard through closed doors)? 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 Specify any problems Hx of Preganancy in last 3 N/A 04/18/25 13:09 Months Nurse Filling Out Trans[facility] 04/18/25 13:09 & Questions: Date: 04/18/25 04/18/25 13:09 Time: 13:16 04/18/25 13:09 Patient unable to answer at this time (ie. confused, unrespo /Reproduction History /Reproductive History - executive director: /Reproductive Hx- executive director Hx Now Gestational Age (in weeks): EDC: Hx Hx Para Hx Section SAB Active Medications Active Medications: Current Medications Generic Name Dose Route Start Last Admin Trade Name Freq PRN Reason Stop Dose Admin Cefazolin Sodium 2 gm/ Sodium 110 mls @ 200 mls/hr 05/07/25 09:45 Chloride IV 05/07/25 10:17 INTRAOP ONE Lactated Ringer's 1,000 mls @ 15 mls/hr 05/07/25 08:45 IV .Q48H ANGELITA PFSH Medical History Weakness of right arm Wears glasses Cancer Walker as ambulation aid Ambulates with cane Non-smoker History of edema DVT (deep venous thrombosis) Frequent falls Pneumonia Headache Long-term current use of steroids Encounter for education Need for pneumocystis prophylaxis Status post stereotactic brain biopsy Glioblastoma multiforme History of traumatic brain injury Home Medications Medication Instructions Recorded Last Taken Type acetaminophen 325 mg tablet 325 mg PO ONCE PRN pain Unknown History (Tylenol) docusate sodium 100 mg capsule 100 mg PO QDAY PRN cons tipation 10/11/24 Unknown History ondansetron 4 mg disintegrating 4 mg PO Q8H PRN nausea and 10/23/24 Unknown Rx tablet vomiting #30 tabs apixaban 5 mg tablet (Eliquis) 5 mg PO BID #60 tabs 05/03/25 Rx sennosides 8.6 mg-docusate sodium 2 tab-cap (2 x 8.6-5 0 mg) PO QHS 01/29/25 Unknown Rx 50 mg capsule (Senna Plus) 30 days #60 caps dexamethasone 2 mg tablet 2 mg PO QDAY #30 tabs 05/07/25 08:00 Rx lidocaine-prilocaine 2.5 %-2.5 % 1 applic topical ONCE PRN port 04/22/25 Unknown Rx topical cream access 30 days #30 grams Allergy/AdvReac Type Severity Reaction Status Date / Time No Known Allergies Allergy Verified 05/07/25 09:23 Family History Father Parkinson's disease Social History Smoking Status: Never smoker alcohol intake: current alcohol intake frequency: holidays/special occasions only substance use type: does not use Review of Systems (Anesthesia) ROS Narrative System reviewed and no additional complaints, except as documented.
--- NOTE | 2025-05-07 09:53 | PCM.HP.BLA ---
History and Physical Date of Admission: 05/07/25 Intake Vital Signs 04/15/2515:43 04/16/2508:50 04/17/2510:22 Height 6 ft 1 in 6 ft 1 in 6 ft 1 in Weight: 251 lb 250 lb BMI 33.1 33.0 BP 111/74 Blood Pressure Location Lt brachial Position Sitting Respiration 18 16 Pulse 73 Pulse Source Monitor Temp 97 F L Pulse Oximetry (%) 94 Oxygen Delivery Method room air Intake Visit Reasons: PORT CONSULT Chief Complaint: port consult Sanitation Technician Required: No Is patient in pain?: No Allergies No Known Allergies Allergy (Verified 04/17/25 10:23) Medications Medication Instructions Recorded Confirmed Type acetaminophen 325 mg tablet 325 mg PO ONCE PRN 10/05/24 04/17/25 History (Tylenol) docusate sodium 100 mg capsule 100 mg PO QDAY PRN 10/11/24 04/17/25 History ondansetron 4 mg disintegrating 4 mg PO Q8H PRN nausea and 10/23/24 04/17/25 Rx tablet vomiting #30 tabs apixaban 5 mg tablet (Eliquis) 5 mg PO BID #60 tabs 01/29/25 04/17/25 Rx sennosides 8.6 mg-docusate sodium 2 tab-cap (2 x 8.6-50 mg) PO QHS 01/29/25 04/17/25 Rx 50 mg capsule (Senna Plus) 30 days #60 caps dexamethasone 2 mg tablet 2 mg PO QDAY #30 tabs 03/18/25 04/17/25 Rx temozolomide 100 mg capsule 200 mg PO QDAY 04/01/25 04/17/25 History temozolomide 250 mg capsule 250 mg PO QDAY 04/01/25 04/17/25 History Have you fallen in the past year?: No PFSH Medical History Frequent falls Pneumonia Headache Long-term current use of steroids Encounter for education Need for pneumocystis prophylaxis Status post stereotactic brain biopsy Glioblastoma multiforme History of traumatic brain injury Family History Father Parkinson's disease Social History Smoking Status: Never smoker alcohol intake: current alcohol intake frequency: holidays/special occasions only substance use type: does not use HPI HPI HPI: Patient is a 49-year-old male with glioblastoma that is here for port placement. ROS General General: Yes fatigue; No weight change, appetite, colon cancer, breast cancer or weakness HEENT HEENT: No difficulty swallowing, eye injury, eye surgery, swollen glands or hoarseness Endo Endocrine: No thyroid disease, diabetes mellitus, thyroid cancer, Hair loss, heat intolerance or cold intolerance Skin Skin: No rash or changing moles Breast Breast: No left breast lump, right breast lump, nipple discharge, breast pain, abnormal mammogram, abnormal US or breast enlargement Musc Musculoskeletal: No back problems, arthritis, rheumatoid arthritis, gout or joint pain Cardio Cardiovascular: No murmur, pacemaker, heart disease, atrial fibrillation, high blood pressure, heart attack, heart stent, palpitations, shortness of breath with exertion or chest pain Psych Psychiatric: No depression, anxiety or hearing voices Resp Respiratory: No shortness of breath, No sleep apnea, No cough, No COPD, No asthma, No emphysema and No wheezing Gastro Gastrointestinal: No abdominal pain, No nausea or vomiting, No diarrhea, No constipation, No blood in stool, No acid reflux, No hemorrhoids, No ulcers, No gallbladder problem and No black,tarry stools Jimmy Hematologic: Yes blood thinners, No blood disorders, No bleeding, No anemia and Yes blood clots Neuro Neurologic: No system reviewed and no additional complaints, except as documented, No as per HPI, No abnormal gait, No abnormal hearing, No abnormal movements, No abnormal speech, No behavioral changes, No burning sensations, No confusion, No convulsions, No disequilibrium, No dizziness, No localized weakness, No frequent falls, No headache(s), No lack of coordination, No loss of vision, No memory loss, Yes numbness, No other visual disturbances, No radicular pain, No restless legs, No sensory deficit, No syncope, Yes tingling, No tremor(s), No weakness and No other Exam Const General: cooperative Orientation: alert and oriented x3 HENMT Head: normal to inspection Neck Neck: normal visual inspection and full ROM Chest Chest palpation & inspection: normal inspection of the chest Resp Effort & Inspection: normal respiratory effort Auscultation: clear to auscultation bilaterally Cardio Rate: regular rate Rhythm: regular rhythm GI Inspection: non-distended Palpation: soft and nontender Skin General: no rashes or lesions noted Neuro General: patient alert and patient oriented x3 Extrem General: full ROM Psych Appearance: grossly normal Mental Status: mental status grossly normal Assessment and Plan Assessment and Plan (1) Encounter for insertion of venous access port: Status: Acute Plan: I discussed placement of right chest port with the patient in detail. I discussed the risks including but not limited to bleeding, infection, pneumothorax, DVT or line infection. Patient understands the risks and is willing to proceed. Chavez Mcfadden MD Pager: [facility] [address] [place] [address], [address] [place] [address] Office: I have examined the patient and the H&P has been reviewed. There are no clinical changes since date of exam. The patient started having swelling of his opposite leg and he may have DVT in the opposite leg. I will try to start his Eliquis tonight.
[2025-05-07] MEDS: Lidocaine 1% /Epi 1:100 (20ml) 20 ML Vial (10:55)
--- NOTE | 2025-05-07 11:03 | PCM.OPRPT ---
Operative Report (Standard) Operative Information Date of Procedure: 05/07/25 Pre-Operative Diagnosis: Need for vascular access for chemotherapy Post-Operative Diagnosis: Same Surgery/Procedure Performed: Ultrasound and fluoroscopy guided right chest port placement utilizing right IJ mixer machine feeder: No Type of Anesthesia: Local MAC RN Documented Start/Stop Times: Operation Date: 05/07/25 10:00 Case Time Into Pre-Op 05/07/25 08:41 Out of Pre-Op 05/07/25 10:22 Anesthesia Start 05/07/25 10:25 Into Room 05/07/25 10:25 Procedure Start 05/07/25 10:41 Procedure Start Time: : Procedure Stop Time: 11:00 Select all DRAINS/GRAFTS/IMPLANTS that apply: Implanted device Implanted device details: 8 [place] PowerPort Estimated Blood Loss: 5 Specimen collected: No Description of surgery: After obtaining informed consent patient was brought back to the operating room MAC anesthesia was induced and the right chest and neck were prepped in normal sterile fashion. Ultrasound was used to evaluate both IJs and the right IJ was selected. Next, using a needle, the right IJ was accessed and a guidewire was passed on into the superior vena cava under fluoroscopy guidance. A small incision was made over the puncture site and the dilator introducer was placed over the guidewire. Next this was capped and the pocket was made for the port. 1% lidocaine with epinephrine was injected in the proposed port site. An incision was made with scalpel. Electrocautery was used to make a pocket under the skin and subcutaneous tissue. Hemostasis was obtained. Next, the catheter was tunneled up to the neck incision site and placed through the introducer. The peel-away introducer was removed and the position of the catheter was confirmed on fluoroscopy. Next, the catheter was trimmed and attached to the port with the locking device. Interrupted 2-0 Vicryl sutures were used to anchor the port to the chest wall and then the port was placed inside the pocket. The pocket was then flushed with saline and the port irrigated with saline. There was good blood return and the port flushed easily. Next, heparin was injected into the port. The skin was closed with subcutaneous interrupted 3-0 Vicryl sutures. A single 3-0 Vicryl sutures placed under the skin at the neck incision site. Steri-Strips were placed as well as op sites. Patient tolerated procedure well, was taken to PACU in stable condition. Chest x-ray will be obtained. Surgical Findings: None Complications Complications: No
--- NOTE | 2025-05-07 11:04 | EX.PCM.DISCH ---
Discharge Instructions Procedure Port-A-Cath Diet Discharge Diet: Light diet - advance as tolerated (Pain medication may cause nausea. You should typically eat light foods as you take your pain medication.) Activity Discharge Activity: Return to Normal Activity and May Shower (with your bandage in place in 1-2 days after surgery. DO NOT SHOWER WHEN YOUR PORT IS ACCESSED.) Additional Activity Instructions:: Resume Eliquis tonight Dressing / Incision Call your doctor if your incision/area has: Continuous Slow Oozing, Sudden Increased Bleeding, Increased Pain/ Swelling, Increased Redness and Foul Smelling Discharge Call your doctor if you observe: Fever of 101 or Higher Remove Dressing in: 2 days Cleanse incision/area with: Soap & Water Follow Up Care Please Follow Up With: Chavez Mcfadden MD When: as needed [phone] Test Results: Test results from this visit will be discussed in further detail at your follow-up appointment, if applicable. Discharge Plan Admission Attending Provider: Chavez Mcfadden Primary Care Provider: Care PhysicianDelmis Primary Instructions Print Language: Croatian Discharge Orders/Prescriptions Prescriptions: No Action acetaminophen [Tylenol] 325 mg tablet 325 mg PO ONCE PRN (Reason: pain) docusate sodium 100 mg capsule 100 mg PO QDAY PRN (Reason: constipation) ondansetron 4 mg tablet,disintegrating 4 mg PO Q8H PRN (Reason: nausea and vomiting) Qty: 30 1RF lidocaine-prilocaine 2.5-2.5 % cream 1 applic topical ONCE PRN (Reason: port access) 30 Days Qty: 30 2RF Senna Plus 8.6-50 mg capsule 2 tab-cap PO QHS 30 Days Qty: 60 3RF Eliquis 5 mg tablet 5 mg PO BID Qty: 60 5RF Patient Comments: WILL STOP 3 DAYS BEFORE PROCEDURE dexamethasone 2 mg tablet 2 mg PO QDAY Qty: 30 3RF Referrals / Follow Up: Care Physician,Delmis Primary [Primary Care Provider] - Disposition Disposition (needs filled in before D/C Order can be placed): Home, Self Care
--- NOTE | 2025-05-07 11:06 | PCM.POST.ANE ---
Anesthesia: Postop Eval I Current Vital Signs Temperature: 97.8 F Pulse Rate: 71 Blood Pressure: 145/90 Respiratory Rate: 16 Pulse Ox: 95 Oxygen Delivery Method: Nasal Cannula Oxygen Flow Rate (L/min): 3 Assessment Airway patent: Yes Spontaneous unlabored respirations: No Mental status: Awake nausea: No Vomiting: No Anesthesia Complication: No Fluid Hydration Crystalloid volume administer (ml): 200 Total IV fluid infused: 200 Progress Note Anesthesia document: Postop Eval 1 completed: Yes
--- NOTE | 2025-05-07 11:32 | RAD_ITS ---
PROCEDURE: CXR FOR LINE PLACEMENT 05/07/2025 REASON FOR EXAM: LINE PLACEMENT TECHNIQUE: Frontal view of the chest. COMPARISON: Chest radiograph 02/12/2025. FINDINGS: Hardware: Interval right IJ chest port with tip overlying the SVC. Heart: Mild cardiomegaly. Lungs: Low lung volumes. Bibasilar atelectasis. No obvious pleural effusion or pneumothorax. Bones: Degenerative changes are identified within the thoracic spine. RAD/CXR for Line Placement IMPRESSION: Right IJ chest port as described. Reading Location: [id number]
--- NOTE | 2025-05-07 18:09 | POSTOPAN2_ITS ---
Anesthesia Postop Eval I Sum Postop Eval Completion status Anesthesia document: Postop Eval 1 completed: Yes Anesthesia Postop Eval I Summary Anesthesia Postop Eval I Summary: Anesthesia Postop Eval I: Assessment Summary Airway patent Yes 05/07/25 11:06 ROPE [email or web address] Spontaneous unlabored No 05/07/25 11:06 ROPE [email or web address].SOBR respirations Mental status Awake 05/07/25 11:06 ROPE [email or web address] nausea No 05/07/25 11:06 ROPE [email or web address].SOBR Vomiting No 05/07/25 11:06 ROPE [email or web address].SOBR Anesthesia Postop Eval I: Fluid Summary Crystalloid volume administer 200 05/07/25 11:06 ROPE [email or web address].SOBR (ml) Colloids volume administered ( ml) Blood Product volume administered (ml) Total IV fluid infused 200 05/07/25 11:06 ROPE [email or web address].SOBR Anesthesia Postop Eval I: Summary Notes Anesthesia Complication No 05/07/25 11:06 ROPE [email or web address].SOBR Anesthesia Complication Comment: Post-operative progress note Anesthesia: Postop Eval II Evaluation Mental status: Awake Pain Level: 1 nausea: No Vomiting: No Progress Note Post-operative progress note: Stable. Meets discharge criteria Complications Anesthesia Complication: No
--- NOTE | 2025-05-07 18:09 | PCM.POSTANE2 ---
Anesthesia Postop Eval I Sum Postop Eval Completion status Anesthesia document: Postop Eval 1 completed: Yes Anesthesia Postop Eval I Summary Anesthesia Postop Eval I Summary: Anesthesia Postop Eval I: Assessment Summary Airway patent Yes 05/07/25 11:06 STAIN [email or web address] Spontaneous unlabored No 05/07/25 11:06 STAIN [email or web address].SOBR respirations Mental status Awake 05/07/25 11:06 STAIN [email or web address].SOBR nausea No 05/07/25 11:06 STAIN [email or web address].SOBR Vomiting No 05/07/25 11:06 STAIN [email or web address].SOBR Anesthesia Postop Eval I: Fluid Summary Crystalloid volume administer 200 05/07/25 11:06 STAIN REMOVER.SOBR (ml) Colloids volume administered ( ml) Blood Product volume administered (ml) Total IV fluid infused 200 05/07/25 11:06 STAIN [email or web address].SOBR Anesthesia Postop Eval I: Summary Notes Anesthesia Complication No 05/07/25 11:06 STAIN [email or web address].SOBR Anesthesia Complication Comment: Post-operative progress note Anesthesia: Postop Eval II Evaluation Mental status: Awake Pain Level: 1 nausea: No Vomiting: No Progress Note Post-operative progress note: Stable. Meets discharge criteria Complications Anesthesia Complication: No
== END 2025-05-07 12:27 | disposition home or self-care (01) ==
LOC: SDC 08:39 → AC 08:41
PROVIDERS: Referring Provider Surgery; Visit Provider Surgery
PROC: (CPT 36561; principal; 2025-05-07 09:45)
DX: Z45.2 Encounter for adjustment and management of vascular access device (principal); C71.9 Malignant neoplasm of brain, unspecified
CPT/HCPCS: 36561; 00532; 71045; 77001; C1788; J2405

== ENCOUNTER → 2025-05-08 | Outpatient (CLI) | payer OTHER, SELFPAY ==
--- NOTE | 2025-05-08 10:11 | VDLE_ITS ---
Reason For Study Reason For Study: Left leg swelling RIGHT LEFT CFV is compressible, spontaneous, phasic, competent GSV is normal. and demonstrates normal augmentation. CFV is compressible, spontaneous, phasic, competent, Procedure and demonstrates normal augmentation. This is a venous duplex using B-mode, color flow and FV is compressible, spontaneous, phasic, competent spectral Doppler. and demonstrates normal augmentation. Exam performed in department. POP V is compressible, spontaneous, phasic, competent A preliminary report was called and/or faxed to and demonstrates normal augmentation. Carlita CYR. T/P Trunk is compressible. PTV is compressible. LT PerV is compressible. VL/Venous Duplex US, Unilateral Interpretation Summary Deep veins of the left lower extremity are patent and compressible segmentally. There is no evidence of left lower extremity deep vein thrombosis. The left great saphenous vein appears patent an d compressible segmentally. Ordering Physician: Geoff Dallas Performed By: Freida Ornelas RVT
== END | disposition home or self-care (01) ==
LOC: CVS 10:08
PROVIDERS: Referring Provider Internal Medicine Medical Oncology; Visit Provider Internal Medicine Medical Oncology
DX: M79.89 Other specified soft tissue disorders (principal); I70.92 Chronic total occlusion of artery of the extremities
CPT/HCPCS: 93971

== ENCOUNTER 2025-07-08 03:25 | Emergency (ER) | payer OTHER, SELFPAY ==
[2025-07-08] VITALS (78 sets, daily range): BP systolic 93–196; BP diastolic 60–120; PULSE 81–146; RESP 14–24; TEMP 36.4–37.5; O2SAT 89–99; BMI 37.3
--- NOTE | 2025-07-08 03:35 | CT_ITS ---
PROCEDURE: BRAIN/HEAD WITHOUT CONTRAST 07/08/2025 REASON FOR EXAM: SEIZURE TECHNIQUE: Procedure Code: CTBR Modality: CT Procedure: BRAIN/HEAD WITHOUT CONTRAST Coronal and Sagittal reconstruction series were provided. One or more dose reduction techniques were used (e.g., Automated exposure control, adjustment of the mA and/or kV according to patient size, use of iterative reconstruction technique. RADIATION DOSE SUMMARY: CTDI Vol 44.99 mGy DLP :846.73 mGycm COMPARISON: 08-Apr-2025 MRI FINDINGS: Unchanged 1 cm left frontal pole nodule. Unchanged 0.8 x 0.8 cm left frontal pole nodule. Unchanged dominant mass extending into the right and left frontal lobes crossing the anterior aspect of the corpus callosum showing nodularity and calcifications measuring 6.2 x 4.6 cm. Unchanged 2.3 x 1.6 cm nodule in the left aspect of the thalamus. Unchanged 5 mm midline shift to the left side. Normal brainstem. Normal cerebellum. There is no demonstrated extra-axial, intraparenchymal, or intraventricular hemorrhage. There are no findings of an acute ischemic infarction. Normal calvarium. There is no demonstrated fracture. Normal soft tissue structures. Normal visualized paranasal sinuses. CT/Brain/Head without Contrast IMPRESSION: No significant change is noted. No CT evidence of an acute brain abnormality. Reading [facility] [id number]
--- NOTE | 2025-07-08 03:36 | EKG12_ITS ---
Test Reason : SEIZURE Blood Pressure : */* mmHG Vent. Rate : 144 BPM Atrial Rate : 144 BPM P-R Int : 128 ms QRS Dur : 80 ms QT Int : 266 ms P-R-T Axes : 42 67 -26 degrees QTcB Int : 411 ms Critical Test Result: High HR Sinus tachycardia Possible Left atrial enlargement Possible Inferior infarct , age undetermined Abnormal ECG Confirmed by KAROLINA NEVAREZ, DB ([id number]), senior technical editor ZO RICHARD ([id number]) on 07/09/2025 7:26:06 AM Referred By: CLARA Confirmed By: DB TURCIOS MD
--- NOTE | 2025-07-08 03:38 | EDS_ITS ---
HPI History of Present Illness Chief Complaint: Unresponsive Informant: spouse/S.O. and EMS Onset/Context/Timing Onset: Today Context: Sudden Onset Timing: Intermittent Quality: Shaking Location: Generalized Narrative Narrative: Patient presents with a seizure that occurred tonight. EMS reports patient had a first-time seizure tonight. EMS reports the patient was unresponsive on their arrival. EMS noted some bleeding from his mouth. EMS administered a nasal trumpet which showed some bloody drainage out of the trumpet. EMS reports patient has a history of glioblastoma. Patient is nonverbal and is a poor informant. came to the emergency department. She was able to provide more information. states that the patient got up and urinated. states that he sat back on the edge of the bed. states that he started having some generalized shaking at that time. states that he had a total of 5 episodes of shaking. states that he was still unresponsive in between the episodes and never returned to his baseline mental status. states that prior to going to bed last night he was acting appropriately. also reports that he has never had any seizures in the past. Prior similar symptoms: No PFSH PFSH Medical History Weakness of right arm Wears glasses Cancer Walker as ambulation aid Ambulates with cane Non-smoker History of edema DVT (deep venous thrombosis) Frequent falls Pneumonia Headache Long-term current use of steroids Encounter for education Need for pneumocystis prophylaxis Status post stereotactic brain biopsy Glioblastoma multiforme History of traumatic brain injury Home Medications ?Medication ?Instructions ?Recorded ?Last Taken ?Type acetaminophen 325 mg tablet 325 mg PO ONCE PRN pain Unknown History (Tylenol) docusate sodium 100 mg capsule 100 mg PO QDAY PRN cons tipation 10/11/24 Unknown History ondansetron 4 mg disintegrating 4 mg PO Q8H PRN nausea and 10/23/24 Unknown Rx tablet vomiting #30 tabs apixaban 5 mg tablet (Eliquis) 5 mg PO BID #60 tabs 05/03/25 Rx sennosides 8.6 mg-docusate sodium 2 tab-cap (2 x 8.6-5 0 mg) PO QHS 01/29/25 Unknown Rx 50 mg capsule (Senna Plus) 30 days #60 caps dexamethasone 2 mg tablet 2 mg PO QDAY #30 tabs 05/07/25 08:00 Rx lidocaine-prilocaine 2.5 %-2.5 % 1 applic topical ONCE PRN port 04/22/25 Unknown Rx topical cream access 30 days #30 grams sennosides 8.6 mg-docusate sodium 2 tab PO QHS 5 Unknown History 50 mg tablet (Stimulant Laxative Plus) Allergy/AdvReac Type Severity Reaction Status Date / Time No Known Allergies Allergy Verified 07/08/25 03:26 Family History Father Parkinson's disease Social History Smoking Status: Never smoker alcohol intake: current alcohol intake frequency: holidays/special occasions only substance use type: does not use ROS ROS ED Review of Systems ROS Unobtainable: due to endotracheal tube and due to mental condition EXAM Physical Exam Const Vital Signs: 07/08/25 03:27 07/08/25 03:27 07/08/25 03:34 Temperature 99.1 F Temperature Source Axillary Pulse Rate 145 H Respiratory Rate 24 H Respiratory Effort Normal Respiratory Pattern Tachypnea Bradypnea Blood Pressure 171/103 H Blood Pressure Mean 125 Pulse Ox 94 90 Oxygen Delivery Method Ambu-Bag Mechanical Ventilator Fraction of Inspired Oxygen (FIO2) 07/08/25 03:48 07/08/25 04:22 07/08/25 04:25 Temperature 98.6 F 99 F Temperature Source Core Core Pulse Rate 146 H 122 H 120 H Respiratory Rate 20 H 20 H 21 H Respiratory Effort Respiratory Pattern Blood Pressure 182/119 H 196/120 H Blood Pressure Mean 140 145 Pulse Ox 93 94 92 Oxygen Delivery Method Mechanical Ventilator Mechanical Ventilator Fraction of Inspired Oxygen (FIO2) 100 07/08/25 04:30 07/08/25 04:48 07/08/25 05:00 Temperature 98.9 F 98.8 F Temperature Source Core Core Pulse Rate 118 H 108 H 104 H Respiratory Rate 21 H 23 H 21 H Respiratory Effort Respiratory Pattern Blood Pressure 189/117 H 155/113 H 163/104 H Blood Pressure Mean 141 127 123 Pulse Ox 93 93 93 Oxygen Delivery Method Mechanical Ventilator Mechanical Ventilator Mechanical Ventilator Fraction of Inspired Oxygen (FIO2) 07/08/25 05:29 07/08/25 06:00 07/08/25 06:30 Temperature 98.7 F 98.5 F 98.6 F Temperature Source Core Core Core Pulse Rate 101 H 96 94 Respiratory Rate 21 H 18 18 Respiratory Effort Respiratory Pattern Blood Pressure 143/109 H 141/105 H 147/107 H Blood Pressure Mean 120 117 120 Pulse Ox 98 98 97 Oxygen Delivery Method Mechanical Ventilator Mechanical Ventilator Mechanical Ventilator Fraction of Inspired Oxygen (FIO2) 07/08/25 06:45 07/08/25 07:00 07/08/25 07:00 Temperature 98.6 F 98.6 F Temperature Source Core Core Pulse Rate 94 97 97 Respiratory Rate 18 18 16 Respiratory Effort Respiratory Pattern Blood Pressure 143/106 H 144/108 H 144/108 H Blood Pressure Mean 118 120 120 Pulse Ox 97 98 98 Oxygen Delivery Method Mechanical Ventilator Mechanical Ventilator Mechanical Ventilator Fraction of Inspired Oxygen (FIO2) 07/08/25 07:12 07/08/25 07:15 07/08/25 07:30 Temperature 98.6 F 97.6 F L Temperature Source Core Core Pulse Rate 97 97 Respiratory Rate 16 20 H 20 H Respiratory Effort Respiratory Pattern Blood Pressure 149/101 H 150/101 H Blood Pressure Mean 117 117 Pulse Ox 98 98 98 Oxygen Delivery Method Mechanical Ventilator Mechanical Ventilator Fraction of Inspired Oxygen (FIO2) 100 07/08/25 07:45 Temperature 98.1 F Temperature Source Core Pulse Rate 97 Respiratory Rate 20 H Respiratory Effort Respiratory Pattern Blood Pressure 142/97 H Blood Pressure Mean 112 Pulse Ox 98 Oxygen Delivery Method Mechanical Ventilator Fraction of Inspired Oxygen (FIO2) Positive well nourished and well developed Constitutional Narrative: BMI is 37.4. General Appearance ED: well developed and NAD HEENT Reports moist mucous membranes Neck no JVD Resp Resp Narrative: Patient has minimal respiratory effort. Patient is being ventilated with a [id number]. There are bilateral rhonchi noted with mechanical ventilation. Auscultation: rhonchi Cardio regular rhythm Rate: tachycardic GI non-distended Palpation: soft Extremity General Extremety ED: Yes edema General Extremity: edema Neuro Sensorium / Orientation: stuporous Sepsis Attestation Sepsis Alert: Yes Date exam was performed: 07/08/25 Time exam was performed: 04:55 Possible Source of Sepsis: Unknown Sepsis Organ Dysfunction Criteria Present: Acute Respiratory Failure (New need for BiPAP/CPAP or MV), Lactic Acid > 2 mmol/L and Serum CO2 < 20 mmol/L (on BMP) Fluid Resuscitation Fluid Resuscitation ordered: Lesser volume fluid bolus ordered Amount of fluid ordered: 1,000 Reason for lesser fluid bolus:: Concern for fluid overload and Heart failure MDM MDM MDM Narrative Medical decision making narrative: Differential diagnosis includes intracranial bleeding, stroke, electrolyte abnormality, glioblastoma with mass effect, urinary tract infection, sepsis, and pneumonia. CT scan of the brain will be obtained to assess for intracranial bleeding and mass effect. Chest x-ray will be obtained to assess for pneumonia and endotracheal tube placement. CBC will be obtained to assess for leukocytosis and anemia. Comprehensive metabolic profile will be obtained to assess for cardiac function, renal function, and electrolyte abnormality. Serum lactate will be obtained to assess for sepsis. PT with INR and PTT will be obtained to assess for coagulopathy. Urinalysis will be obtained to assess for urinary tract infection. High-sensitivity troponin will be obtained to assess for cardiac ischemia. 2-hour repeat high-sensitivity troponin will be obtained to assess for ongoing cardiac ischemia. EKG will be obtained to assess for cardiac dysrhythmia and cardiac ischemia. History & Record Review Additional record(s) reviewed:: Prior labs Lab Data Attestation: I reviewed the patient's lab results. Lab results narrative: CBC was reviewed. There is a leukocytosis of 17.8. The remainder is within normal limits. Comprehensive metabolic profile was reviewed. Glucose was slightly elevated at 278. BUN was 25 and creatinine was 1.39. Anion gap was elevated at 30. CO2 was low at 10.5. Serum lactate was reviewed and was elevated at 15.0. Labs: Laboratory Results - last 24 hr 07/08/25 07/08/25 07/08/25 03:28 03:43 05:27 WBC 17.8 H RBC 4.11 L Hgb 14.5 Hct 44.3 MCV 107.8 H MCH 35.3 H MCHC 32.7 RDW Std Deviation 67.4 H RDW Coeff of Ed 17.4 H Plt Count 211 MPV 10.8 Neut % (Auto) Not Reportable Absolute Neuts (auto) 10.3 H Absolute Lymphs (auto) 4.27 Total Counted 100 Neutrophils % (Manual) 52 Band Neutrophils % 6 H Lymphocytes % (Manual) 24 Monocytes % (Manual) 9 Metamyelocytes % 7 H Myelocytes % 2 H Nucleated RBCs/100 WBC 3 Diff Path Review May foll Platelet Estimate ADEQUATE Polychromasia 1+ Anisocytosis 2+ Macrocytosis 2+ PT 14.9 INR 1.1 APTT 22.5 L Sodium 139 Potassium 4.8 Chloride 98 Carbon Dioxide 10.5 L Anion Gap 30 H BUN 25 H Creatinine 1.39 H Estim Creat Clear Calc 89.33 Est GFR (MDRD) Non-Af 62 BUN/Creatinine Ratio 18.1 Glucose 278 H Lactic Acid 15.0 H* Calcium 9.1 Total Bilirubin 0.23 AST 56 H ALT 90 H Alkaline Phosphatase 68 Total Creatine Kinase 121 Troponin T High Sens 53 H Troponin T Hi Sens 2 Hr 69 H* NT pro BNP II 103 Total Protein 6.7 Albumin 3.8 Globulin 2.8 Albumin/Globulin Ratio 1.4 Triglycerides 393 H Urine Color Yellow Urine Clarity Clear Urine pH 5.0 Ur Specific [place] 1.025 Urine Protein 100 H Urine Glucose (UA) Normal Urine Ketones Negative Urine Occult Blood 50 H Urine Nitrite Negative Urine Bilirubin Negative Urine Urobilinogen Normal Ur Leukocyte Esterase Negative Urine RBC 0-5 SEEN Urine WBC 0-5 SEEN Ur Squamous Epith Cells 5-10 SEEN Ur Transition Epith Cell 0-5 SEEN Urine Bacteria 3+ Urine Mucus 0 SEEN 07/08/25 07:55 WBC RBC Hgb Hct MCV MCH MCHC RDW Std Deviation RDW Coeff of Ed Plt Count MPV Neut % (Auto) Absolute Neuts (auto) Absolute Lymphs (auto) Total Counted Neutrophils % (Manual) Band Neutrophils % Lymphocytes % (Manual) Monocytes % (Manual) Metamyelocytes % Myelocytes % Nucleated RBCs/100 WBC Diff Path Review Platelet Estimate Polychromasia Anisocytosis Macrocytosis PT INR APTT Sodium Potassium Chloride Carbon Dioxide Anion Gap BUN Creatinine Estim Creat Clear Calc Est GFR (MDRD) Non-Af BUN/Creatinine Ratio Glucose Lactic Acid Cancelled Calcium Total Bilirubin AST ALT Alkaline Phosphatase Total Creatine Kinase Troponin T High Sens Troponin T Hi Sens 2 Hr NT pro BNP II Total Protein Albumin Globulin Albumin/Globulin Ratio Triglycerides Urine Color Urine Clarity Urine pH Ur Specific [place] Urine Protein Urine Glucose (UA) Urine Ketones Urine Occult Blood Urine Nitrite Urine Bilirubin Urine Urobilinogen Ur Leukocyte Esterase Urine RBC Urine WBC Ur Squamous Epith Cells Ur Transition Epith Cell Urine Bacteria Urine Mucus ABG Data Attestation: I personally reviewed and interpreted this ABG as follows: Interpretation: Arterial blood gas was reviewed. pH was 7.00. Bicarb was 15. pCO2 was 62.3 and pO2 was 83. Oxygen saturation was 88%. This was while patient was being bagged with [id number]. Repeat arterial blood gas after the patient was on ventilator for 30 minutes showed pH 7.341, pCO2 was 40.7, pO2 was 75.4, bicarb was 22, oxygen saturation was 94.1%. This is with a tidal volume of 500, FiO2 of 100%, rate of 14, and 12 of PEEP. ABG results: ABG 07/08/25 07/08/25 03:47 04:59 Specimen Type ART ART Sample Site R Radial R Radial pH 7.00 L* 7.34 L Bicarbonate Actual 15.5 L 22.0 Total CO2 17 23 Base Excess -16 L -4 L O2 Saturation 88 L 94 L O2 % 15.0 100.0 ABG pCO2 62.3 H 40.7 ABG pO2 83 75 Russ Test Positive Positive Respiration Rate 14 O2 Delivery Device Bagging Adult Vent Vent Mode Not entered AC Tidal Volume 500.0 POC PEEP 12 Crit Call To/Read Back Yes Blood Gas Notified Whom Edward Blood Gas Notified Time 03:48:50 Radiography Chest X-Ray - ED: 1 View, Read by ED Physician, Read by Radiologist and No Acute Disease Diagnostic Testing: Clinical Impression(s) from Imaging Studies Brain CT 07/08/25 03:35 IMPRESSION: No significant change is noted. No CT evidence of an acute brain abnormality. Reading Location: [place] [address] Chest X-Ray 07/08/25 04:00 IMPRESSION: Right Port-A-Cath is in good position. Enteric feeding tube is in good position. Endotracheal tube is in good position. Increased bilateral basilar atelectatic pulmonary changes. Reading Location: [place] [address] CT scan of the brain was obtained. There is no significant change compared to MRI dated 04/08/2025. There is no acute bleeding noted. There is no acute infarct noted. This was interpreted by the radiologist and was also independently reviewed by myself. Portable 1 view chest x-ray was obtained. On my independent interpretation, lung quinones are clear. The endotracheal tube is in good position. Orogastric tube is in good position. The medport catheter is in good position. There is normal cardiac silhouette. Bony thorax is normal. There is no acute process noted. Radiologist also interpreted the x-ray and agrees. EKG Initial EKG: Attestation: I personally reviewed and interpreted this EKG as follows: Interpretation: Sinus Tachycardia (144) and Non-Specific ST Changes Comments: EKG was obtained. On my independent interpretation, it showed sinus tachycardia with a rate of 144. MI interval was normal at 128 ms. QRS interval was normal at 80 ms. QTc interval was normal at 411 ms. [place] was normal at 67. There are nonspecific ST-T wave changes in leads III and aVF. Prior EKG tracings: available for review Prior: Unchanged (09/13/2024) Management Discussion w/another healthcare provider: [employer]ight Analyst (Dr. Vallejo from oncology) Treatment and Re-Evaluation :: Patient was having difficulty maintaining his airway. Patient was still unresponsive. The decision was made to intubate the patient to protect his airway. Patient was given etomidate and rocuronium. Patient was intubated with a 7.5 ET tube to 24 cm at the lip. There was good color change on capnography. Breath sounds were equal bilaterally. Because of the patient's peripheral edema, the patient was only given 500 cc bolus of normal saline initially. Patient was given a repeat bolus of 500 cc of normal saline. However, patient was not given a 30 cc/kg bolus due to the concern for fluid overload and hypertension. Also, the lab abnormalities could be related to the seizures and not necessarily an infection. Case was discussed with Dr. Vallejo. He agrees with transferring the patient so that he can be monitored in a neuro ICU with continuous EEG monitoring. He had no recommendations as far as which facility he would prefer. Case was discussed with the family. Patient was recently transferred to [facility]. Family is agreeable to transfer there. Case was discussed with Dr. Croft, neuro ICU at [facility]. He accepted the patient to be transferred there. He also recommended starting the patient on Keppra 3 g IV. This was ordered. Patient will be transferred there when a bed becomes available. Care of the patient will be turned over to the oncoming physician pending transfer. Procedures Intubations Intubation Method: orotracheal Intubation Verification: Positive color change and Bilateral breath sounds confirmed Intubation Complications: no complications Critical Care Time Critical Care Time: Yes Critical care time (excluding procedures): 30-74 minutes (42), Including time spent:, Discussing w/Patient &/or Family/Superintendent Menagerie, Discussing w/Consultants, Arranging Admission or Transfer and Performing Direct Patient Care at Bedside Discharge Plan Triage Chief Complaint: Unresponsive ED Provider: Trevor Leon Dx/Rx/DC Orders Clinical Impression: Status epilepticus, Glioblastoma multiforme, Edema leg, Elevated blood pressure reading, Metabolic acidosis, Lactic acidosis Prescriptions: No Action acetaminophen [Tylenol] 325 mg tablet 325 mg PO ONCE PRN (Reason: pain) docusate sodium 100 mg capsule 100 mg PO QDAY PRN (Reason: constipation) ondansetron 4 mg tablet,disintegrating 4 mg PO Q8H PRN (Reason: nausea and vomiting) Qty: 30 1RF lidocaine-prilocaine 2.5-2.5 % cream 1 applic topical ONCE PRN (Reason: port access) 30 Days Qty: 30 2RF sennosides-docusate sodium [Stimulant Laxative Plus] 8.6-50 mg tablet 2 tab PO QHS Senna Plus 8.6-50 mg capsule 2 tab-cap PO QHS 30 Days Qty: 60 3RF Eliquis 5 mg tablet 5 mg PO BID Qty: 60 5RF Patient Comments: WILL STOP 3 DAYS BEFORE PROCEDURE dexamethasone 2 mg tablet 2 mg PO QDAY Qty: 30 3RF Primary Care Provider: Geoff Dallas Referrals: Care Physician,No Primary [Non-Staff, Medical] Print Language: Dutch Disposition Disposition: Acute Care Hospital Discharge Location: [facility]
[2025-07-08 03:46] LABS: Mucous, Urine 0 SEEN /hpf (<or=2+)
[2025-07-08 03:46] LABS: Hematocrit 44.3 % (40-54); Hemoglobin 14.5 g/dL (13.0-16.5); Mean Corp Hgb Conc 32.7 g/dL (32-36); Mean Corpuscular Volume 107.8 fL (80-94); Mean Platelet Vol. 10.8 fl (6.2-12.0); POSITIVE COUNT YES; POSITIVE DIFFERENTIAL YES; POSITIVE MORPHOLOGY YES; Platelet Count 211 K/mm3 (150-450); RBC Distribution Width CV 17.4 % (11.6-14.6); RBC Distribution Width SD 67.4 fl (35.1-43.9); Red Blood Count 4.11 M/mm3 (4.6-6.2); White Blood Count 17.8 K/mm3 (4.4-11.0)
[2025-07-08 03:47] LABS: Differential Indicated MANUAL DIFF
[2025-07-08 03:48] LABS: Color, Urine Yellow (Yellow); Glucose, Dipstick Normal (Normal); Ketone-Dipstick Negative (Negative); Leukocyte Esterase-Dipstick Negative /ul (Negative); Nitrite-Dipstick Negative (Negative); Occult Blood-Urine 50 /ul (Negative); Protein-Dipstick 100 mg/dl (Negative); Specific Gravity, Urine 1.025 (1.002-1.030); Urine Bilirubin Dipstick Negative (Negative)
[2025-07-08 03:52] LABS: Allen Test Positive; Base Excess -16 mmol/L (-2 to +2); FI02 15.0; PO2 83 mmHG (75-100); SITE R Radial; SO2 88 % (95-99); Time Given 03:48:50
[2025-07-08 03:55] LABS: Prothrombin Time (Protime)PT. 14.9 SECONDS (11.7-14.9)
[2025-07-08 03:56] LABS: Partial Thromboplast Time 22.5 Seconds (24.1-36.2)
[2025-07-08] MEDS: 0.9% Normal Saline (500mL Bag) 500 ML 1000 ML IV (03:56)
--- NOTE | 2025-07-08 04:00 | RAD_ITS ---
PROCEDURE: CHEST 1 VIEW (PORTABLE) 07/08/2025 REASON FOR EXAM: DYSPNEA TECHNIQUE: Frontal view of the chest. COMPARISON: 05/07/2025. FINDINGS: Right Port-A-Cath is in good position. Enteric feeding tube is in good position. Endotracheal tube is in good position. Increased bilateral basilar atelectatic pulmonary changes. There is no demonstrated pleural abnormality. Enlarged cardiac silhouette. Normal mediastinum and heather. Normal visualized pulmonary arteries. Atheromatous plaques of the visualized aortic arch and descending thoracic aorta. Diffuse spondylosis of the visualized thoracic spine. Normal visualized ribs, clavicles. Degenerative joint disease. There is no demonstrated abnormality of the visualized soft tissue structures of the upper abdomen. RAD/Chest 1 View (Portable) IMPRESSION: Right Port-A-Cath is in good position. Enteric feeding tube is in good position. Endotracheal tube is in good position. Increased bilateral basilar atelectatic pulmonary changes. [facility]
[2025-07-08 04:03] LABS: AST(SGOT) 56 U/L (<=37); Alanine Aminotransfer ALT/SGPT 90 U/L (<=46); Albumin, Serum 3.8 g/dL (3.5-5.0); Alkaline Phosphatase 68 U/L (40-129); Anion Gap 30 (5-15); BUN 25 mg/dL (4-19); BUN/Creat Ratio 18.1 RATIO (10-20); Calcium,Total 9.1 mg/dL (7.6-11.0); Carbon Dioxide 10.5 mmol/L (21.0-32.0); Chloride 98 mmol/L (98-108); Estimated Creatinine Clearance 89.33 ml/min (50-250); Globulin 2.8 g/dL (2.2-4.2); Glucose 278 mg/dL (70-99); Potassium 4.8 mmol/L (3.3-5.1); Troponin T High Sensitivity 53 ng/L (<=22)
[2025-07-08 04:23] LABS: Neutrophil-Band 6 % (0-5); Neutrophil-Segmented 52 % (47-70); Nucleated Red Bld Cells,Manual 3 % (0-5); Total Cells Counted 100 (MANUAL DIFF)
[2025-07-08 04:26] LABS: Anisocytosis 2+; Macrocytosis 2+; Polychromasia 1+
[2025-07-08] MEDS: Propofol 10MG/Ml 1,000 MG/100 ML Bottle 7.7 MG CONT INF (04:45)
[2025-07-08 04:46] LABS: Red Blood Cells-Urine 0-5 SEEN /hpf (0-5); Squamous Epithelial Cells - UA 5-10 SEEN /hpf (0-5); Transitional Epithelial - Ur 0-5 SEEN /hpf (0-5)
[2025-07-08] MEDS: fentaNYL drip 100 ML 2.5 MCG CONT INF (04:46)
[2025-07-08 04:53] LABS: CPK Total, Creatine Kinase 121 U/L (24-195); Triglycerides 393 mg/dL
--- NOTE | 2025-07-08 04:56 | ED.RN ---
Pt was intubated per Dr. Leon and bilateral soft wrist restraints were applied post intubation.
[2025-07-08 05:03] LABS: Allen Test Positive; Base Excess -4 mmol/L (-2 to +2); FI02 100.0; PEEP 12; PO2 75 mmHG (75-100); RR 14; SITE R Radial; SO2 94 % (95-99)
[2025-07-08] MEDS: 0.9% Normal Saline (500mL Bag) 500 ML 999 ML IV (05:13)
--- OUTSIDE RECORDS SUMMARY | 2025-07-08 05:22 | XMS RPT_ITS | CCD ---
Author Organization [facility] Care Team Providers Care Cloth Washer Operator Name Role Phone Unavailable Primary Care Provider UnavailKostas Davenport MD Unavailable PROVIDER, UNKNOWN Admitting Unavailable DUPREEFAITH GRISSOMEN Attending Unavailable ATASSI, LINDA Admitting Unavailable REQUEST, IP PHYSICAL THERAPY SERVICE Consulting Unavailable GIO ZAMORA Attending Unavailable ANDCOREY HUGO Referring Unavailable REQUEST, IP OCCUPATIONAL THERAPY SERVICE Consult ing Unavailable DUPREE, KOSTAS Admitting Unavailable DUPREE, KOSTAS Attending Unavailable DUPREE, KOSTAS Admitting Unavailable PROVIDER, UNKNOWN Attending Unavailable PROVIDER, UNKNOWN Attending Unavailable PROVIDER, UNKNOWN Admitting Unavailable ANDRUF HUGO Referring Unavailable ATASSI, LINDA Admitting Unavailable ATASSI, LINDA Admitting Unavailable PROVIDER, UNKNOWN Attending Unavailable ANDRUF, HUGO Referring Unavailable PROVIDER, UNKNOWN Admitting Unavailable LEIA, KOSTAS Attending Unavailable Dr. Ez Lee MD Primary Care Provider [phone] Dr. Hugo Paul DO Attending Provider Dr. Hugo Paul DO Referring Provider Dr. Hugo Paul DO Emergency Provider Carlita Meza Attending Provider Unavailable Dr. Geoff Dallas MD Attending Provider [phone] KOSTAS DUPREE Referring Provider [phone] Ez Lee MD Referring Provider Dr. Stephen Davis DO Attending Provider Dr. Stephen Davis DO Referring Provider Ariana CAMPAIGN COORDINATOR-C, Vielka Attending Provider Ariana CAMPAIGN COORDINATOR-C, Vielka Referring Provider Burt NEVAREZ, Dr. Tellez Referring Provider Jesus NEVAREZ, Dr. Hui Primary Care Provider [phone] Burt NEVAREZ, Dr. Tellez Referring Provider Reginaldo NEVAREZ, Dr. Murray Attending Provider [phone] Care Physician, No Primary Primary Care Provider Unavailable [facility] GÓMEZ, Dr. Belcher Emergency Provider Burt NEVAREZ, Dr. Tellez [facility]erring Provider [facility], Dr. Belcher Attending Provider Care Physician, No Primary Referring Provider Un available Jesus NEVAREZ, Dr. Hui Primary Care Provider Jesus NEVAREZ, Dr. Hui Referring Provider Ariana CAMPAIGN COORDINATOR-C, Vielka Attending Provider Ryan GÓMEZ, Dr. Mitchell Attending Provider Ryan GÓMEZ, Dr. Mitchell Referring Provider Burt NEVAREZ, Dr. Tellez Attending Provider Dave Borges Attending Provider [phone] Dave Borges Referring Provider Jesus NEAVREZ, Dr. Hui Primary Care Provider Jesus NEVAREZ, Dr. Hui Referring Provider Ariana CAMPAIGN COORDINATOR-C, Vielka Attending Provider Ariana CAMPAIGN COORDINATOR-C, Vielka Referring Provider Dr. Ez Lee MD Primary Care Provider Ryan GÓMEZ, Dr. Mitchell Attending Provider Ryan GÓMEZ, Dr. Mitchell Referring Provider Jesus NEVAREZ, Dr. Hui Primary Care Provider Jesus NEVAREZ, Dr. Hui Referring Provider Ariana CAMPAIGN COORDINATOR-C, Vielka Attending Provider Ryna GÓMEZ, Dr. Mithcell Attending Provider Ryan DO, Dr. Mitchell Referring Provider Burt NEVAREZ, Dr. Tellez Attending Provider Jesus NEVAREZ, Dr. Hui Primary Care Provider Jesus NEVAREZ, Dr. Hui Referring Provider Ariana CAMPAIGN COORDINATOR-C, Vielka Attending Provider Ryan DO, Dr. Mitchell Attending Provider Ryan DO, Dr. Mitchell Referring Provider Jesus NEVAREZ, Dr. Hui Primary Care Provider Jesus NEVAREZ, Dr. Hui Referring Provider Ariana CAMPAIGN COORDINATOR-C, Vielka Attending Provider Ryan DO, Dr. Mitchell Attending Provider Ryan DO, Dr. Mitchell Referring Provider Ariana CAMPAIGN COORDINATOR-C, Vielka Referring Provider Yoni NEVAREZ, Dr. Nunez Attending Provider Jesus NEVAREZ, Dr. Hui Primary Care Provider [phone] Ariana CAMPAIGN COORDINATOR-C, Vielka Attending Provider Ryan DO, Dr. Mitchell Attending Provider Nisswa DO, Dr. Mitchell Referring Provider Jesus NEVAREZ, Dr. Hui Referring Provider Bogdan NEVAREZ, Dr. Byrne Attending Provider [phone] Jesus NEVAREZ, Dr. Hui Primary Care Provider Ariana CAMPAIGN COORDINATOR-C, Vielka Attending Provider Ariana CAMPAIGN COORDINATOR-C, Vielka Referring Provider Bogdan NEVAREZ, Dr. Byrne Referring Provider Bogdan NEVAREZ, Dr. Byrne Other Provider Jesus NEVAREZ, Dr. Hui Primary Care Provider Ryan GÓMEZ, Dr. Mitchell Attending Provider Ryan GÓMEZ, Dr. Mitchell Referring Provider Burt NEVAREZ, Dr. Tellez Attending Provider Ryan DO, Dr. Mitchell Attending Provider Burt NEVAREZ, Dr. Tellez Referring Provider Reginaldo NEVAREZ, Dr. Murray Attending Provider Jesus NEVAREZ, Dr. Hui Primary Care Provider Care Physician, No Primary Primary Care Provider Unavailable Jesus NEVAREZ, Dr. Hui Primary Care Provider [phone] Care Physician, No Primary Primary Care Provider Unavailable Care Physician, No Primary Referring Provider Un available Dr. Geoff Dallas MD Attending Provider Ariana CAMPAIGN COORDINATOR-C, Vielka Attending Provider Ariana CAMPAIGN COORDINATOR-C, Vielka Referring Provider Jesus NEVAREZ, Dr. Hui Primary Care Provider [phone] Care Physician, No Primary Primary Care Provider Unavailable Care Physician, No Primary Referring Provider Un available Dr. Geoff Dalals MD Attending Provider Jesus NEVAREZ, Dr. Hui Primary Care Provider [phone] Care Physician, No Primary Primary Care Unava ilable Ariana CAMPAIGN COORDINATOR, Vielka Referring Unavailable Ariana CAMPAIGN COORDINATOR, Vielka Attending Unavailable Chavez Mcfadden Attending Unavailable Chavez Mcfadden Referring Unavailable Care Physician, No Primary Primary Care Unava ilable Care Physician, No Primary Primary Care Unava ilable Trevor Leon Attending Unavailable Care Physician, No Primary Referring Unava ilable Geoff Dallas Attending Unavailable Care Physician, No Primary Primary Care Unava ilable Stephen Davis Attending Unavailable Ez Lee Primary Care Unavailable Stephen Davis Referring Unavailable Ez Lee Referring Unavailable Ez Lee Primary Care Unavailable Ariana CAMPAIGN COORDINATOR, Vielka Attending Unavailable Stephen Davis Attending Unavailable Stephen Davis Referring Unavailable Jesus, Ez Primary Care Unavailable Jesus, Ez Primary Care Unavailable Ariana CAMPAIGN COORDINATOR, Vielka Attending Unavailable Ez Lee Referring Unavailable Care Physician, No Primary Primary Care Unava ilable Ariana CAMPAIGN COORDINATOR, Vielka Attending Unavailable Ariana CAMPAIGN COORDINATOR, Vielka Referring Unavailable Care Physician, No Primary Primary Care Unava ilable Ariana CAMPAIGN COORDINATOR, Vielka Attending Unavailable Ariana CAMPAIGN COORDINATOR, Vielka Referring Unavailable Care Physician, No Primary Primary Care Unava ilable Ye Sparks Attending Unavailabl e Stephen Davis Attending Unavailable Care Physician, No Primary Primary Care Unava ilable Stephen Davis Referring Unavailable Care Physician, No Primary Primary Care Unava ilable Dave Borges Referring Unavailable Dave Borges Attending Unavailable Ez Lee Primary Care Unavailable Ariana CAMPAIGN COORDINATOR, Vielka Referring Unavailable Ariana CAMPAIGN COORDINATOR, Vielka Attending Unavailable Ez Lee Primary Care Unavailable Ariana CAMPAIGN COORDINATOR, Vielka Attending Unavailable Ariana CAMPAIGN COORDINATOR, Vielka Referring Unavailable Hugo Paul Referring Unavailable Ez Lee Primary Care Unavailable BeverlyHugo hong Attending Unavailable Ariana CAMPAIGN COORDINATOR, Vielka Attending Unavailable Ez Lee Primary Care Unavailable Ariana CAMPAIGN COORDINATOR, Vielka Referring Unavailable Stephen Davis Attending Unavailable Stephen Davis Referring Unavailable Ez Lee Primary Care Unavailable Care Physician, No Primary Referring Unava ilable Care Physician, No Primary Primary Care Unava ilable Ariana CAMPAIGN COORDINATOR, Vielka Attending Unavailable Care Physician, No Primary Referring Unava ilable Geoff Dallas Attending Unavailable Care Physician, No Primary Primary Care Unava ilable Stephen Davis Attending Unavailable Stephen Davis Referring Unavailable Ez Lee Primary Care Unavailable Care Physician, No Primary Referring Unava ilable Ariana CAMPAIGN COORDINATOR, Vielka Attending Unavailable Care Physician, No Primary Primary Care Unava ilable Care Physician, No Primary Referring Unava ilable Geoff Dallas Attending Unavailable Care Physician, No Primary Primary Care Unava ilable Care Physician, No Primary Referring Unava ilable Care Physician, No Primary Primary Care Unava ilable Geoff Dallas Attending Unavailable Care Physician, No Primary Referring Unava ilable Care Physician, No Primary Primary Care Unava ilable Geoff Dallas Attending Unavailable Chavez Mcfadden Referring Unavailable Chavez Mcfadden Consulting Unavailable Chavez Mcfadden Attending Unavailable Care Physician, No Primary Primary Care Unava ilable Ariana CAMPAIGN COORDINATOR, Vielka Attending Unavailable Elderbrock, Ez Primary Care Unavailable Elderbrock, Ez Referring Unavailable Care Physician, No Primary Referring Unava ilable Care Physician, No Primary Primary Care Unava ilable Dave Borges Attending Unavailable Care Physician, No Primary Referring Unava ilable Care Physician, No Primary Primary Care Unava ilable Ariana CAMPAIGN COORDINATOR, Vielka Attending Unavailable Stephen Davis Attending Unavailable Stephen Davis Referring Unavailable Elderbrock, Ez Primary Care Unavailable Ariana CAMPAIGN COORDINATOR, Vielka Attending Unavailable Elderbrock, Ez Primary Care Unavailable Elderbrock, Ez Referring Unavailable Stephen Davis Attending Unavailable Elderbrock, Ez Primary Care Unavailable Stephen Davis Referring Unavailable PraGeoff skaggs Referring Unavailable Trevor Hair Attending Unavailable Care Physician, No Primary Primary Care Unava ilable Trevor Hair Attending Unavailable Geoff Dallas Referring Unavailable Care Physician, No Primary Primary Care Unava ilable Stephen Davis Attending Unavailable Stephen Davis Referring Unavailable Elderbrock, Ez Primary Care Unavailable Elderbrock, Ez Primary Care Unavailable Elderbrock, Ez Referring Unavailable Ariana CAMPAIGN COORDINATOR, Vielka Attending Unavailable Geoff Dallas Attending Unavailable Care Physician, No Primary Referring Unava ilable Care Physician, No Primary Primary Care Unava ilable Chavez Mcfadden Attending Unavailable Care Physician, No Primary Referring Unava ilable Care Physician, No Primary Primary Care Unava ilable Stephen Davis Referring Unavailable Stephen Davis Attending Unavailable Elderpedrito, Ez Primary Care Unavailable Geoff Dallas Attending Unavailable JESSICA LANE Referring Unavailable Elderbrock, Ez Primary Care Unavailable Ariana CAMPAIGN COORDINATOR, Vielka Attending Unavailable Elderbrock, Ez Primary Care Unavailable Elderbrock, Ez Referring Unavailable Stephen Davis Attending Unavailable Elderbrock, Ez Primary Care Unavailable Ryan, Stephen Referring Unavailable Elderbrock, Ez Primary Care Unavailable Carlita Meza Attending Unavailable Trevor Hair Attending Unavailable Geoff Dallas Referring Unavailable Elderbrock, Ez Primary Care Unavailable Stephen Davis Attending Unavailable Stephen Davis Referring Unavailable Elderbrock, Ez Primary Care Unavailable Geoff Dallas Attending Unavailable Elderbrock, Ez Referring Unavailable Elderbrock, Ez Primary Care Unavailable Geoff Dallas Referring Unavailable PraGeoff skaggs Attending Unavailable Elderlangck, Ez Primary Care Unavailable Care Physician, No Primary Primary Care Unava ilable Ariana CAMPAIGN COORDINATOR, Vielka Referring Unavailable Ariana CAMPAIGN COORDINATOR, Vielka Attending Unavailable Care Physician, No Primary Primary Care Unava ilable Prah, Geoff Referring Unavailable Prah, Geoff Attending Unavailable Prah, Geoff Referring Unavailable Prah, Geoff Attending Unavailable Elderbrock, Ez Primary Care Unavailable Prah, Geoff Attending Unavailable Elderbrock, Ez Primary Care Unavailable Elderbrock, Ez Referring Unavailable Care Physician, No Primary Primary Care Unava ilable Ariana CAMPAIGN COORDINATOR, Vielka Referring Unavailable Ariana CAMPAIGN COORDINATOR, Vielka Attending Unavailable Prah, Geoff Attending Unavailable Prah, Geoff Referring Unavailable Care Physician, No Primary Primary Care Unava ilable Stephen Davis Attending Unavailable Jesus, Ez Primary Care Unavailable Jesus, Ez Referring Unavailable Care Physician, No Primary Primary Care Unava ilable Prah, Geoff Referring Unavailable Prah, Geoff Attending Unavailable Ryan, Stephen Attending Unavailable Elderpedrito, Ez Primary Care Unavailable Elderbrock, Ez Referring Unavailable Care Physician, No Primary Primary Care Unava ilable Care Physician, No Primary Referring Unava ilable Prasharifa, Geoff Attending Unavailable Care Physician, No Primary Primary Care Unava ilable Care Physician, No Primary Referring Unava ilable Prah, Geoff Attending Unavailable Prah, Geoff Attending Unavailable Care Physician, No Primary Referring Unava ilable Care Physician, No Primary Primary Care Unava ilable Enrique Vallejo Attending Unavailable Care Physician, No Primary Referring Unava ilable Care Physician, No Primary Primary Care Unava ilable Elderbrock, Ez Primary Care Unavailable Elderpedrito, Ez Referring Unavailable Ariana CAMPAIGN COORDINATOR, Vielka Attending Unavailable Ryan, Stephen Attending Unavailable Stephen Davis Referring Unavailable Jesus, Ez Primary Care Unavailable Care Physician, No Primary Primary Care Unava ilable Ariana CAMPAIGN COORDINATOR, Vielka Referring Unavailable Ariana CAMPAIGN COORDINATOR, Vielka Attending Unavailable Medications Current Medications Medication Drug Class(es) Dates Sig (Normalized) Sig (Original) acetaminophen 325 mg oral tablet (20 sources) Start: 10-05-2024 take 1 tablet by mouth once as needed for pain Acetaminophen (Tylenol) 325 mg tablet Active 325 mg PO ONCE as needed for pain October 05, 2024 1:00am Start: 09-22-2024 End: 10-02-2024 take 1-2 tablets by mouth every six hours as needed acetaminophen (TYLENOL) 325 mg tablet Take 1-2 Tablets by mouth every 6 hours as needed for up to 10 days. Do not exceed 4G acetaminophen daily from all sources 40 Tablet 09/22/2024 11:17 AM EST 09/22/2024 10/02/2024 Active Start: 09-21-2024 650 mg, Oral, EVERY 4 HOURS PRN, Starting on Tue09/21/24 at 1112, Until Discontinued, Mild Pain (pain score 1,2,3) Start: 09-14-2024 650 mg, Oral, EVERY 4 HOURS PRN, Starting on Tue09/14/24 at 0706, Until Discontinued, Mild Pain (pain score 1,2,3), Fever 38 C and higher apixaban 5 mg oral tablet (20 sources) Factor Xa Inhibitor Start: 01-29-2025 take 1 tablet by mouth twice daily Apixaban (Eliquis) 5 mg tablet Active 5 mg PO TWICE A DAY 60 5 January 29, 2025 12:00am Start: 01-10-2025 End: 01-29-2025 take 1 tablet by mouth once Apixaban (Eliquis Dvt-Pe T reat 30d Start) 5 mg (74 tabs) tablets,dose pack Discontinued 0 PO per package directions 74 0 January 10, 2025 12:00am January 29, 2025 11:01am PO PER PKG DIR docusate sodium 100 mg oral capsule (20 sources) Start: 10-05-2024 End: 10-11-2024 take 1 capsule by mouth once daily as needed for constipation Docusate Sodium 100 mg capsule Active 100 mg PO daily as needed for constipation October 11, 2024 4:31pm Start: 09-21-2024 End: 10-06-2024 take 1 capsule by mouth twice daily as needed docusate sodium (COLACE) 100 MG capsule Take 1 Capsule by mouth 2 times daily as needed for up to 14 days. 28 Capsule 09/22/2024 11:17 AM EST 09/22/2024 10/06/2024 Active Lidocaine / Prilocaine (7 sources) Antiarrhythmic, Amide Local Anesthetic Start: 04-22-2025 Lidocaine-Prilocaine 2.5-2.5 % cream Active 1 NMA TOPICAL ONCE as needed for port access 30 30 2 April 22, 2025 12:00am Glioblastoma multiforme Malignant neoplasm of brain, unspecified melatonin 3 mg oral tablet (1 source) Start: 09-14-2024 ondansetron 4 mg disintegrating oral tablet (20 sources) Serotonin-3 Receptor Antagonist Start: 10-23-2024 take 1 tablet by mouth every eight hours as needed for nausea and vomiting Ondansetron 4 mg tablet,disintegrating Active 4 mg PO Q8H as needed for nausea and vomiting 15 11October 23, 2024 1:00am Glioblastoma multiforme Malignant neoplasm of brain, unspecified Start: 09-14-2024 oxyCODONE hydrochloride 5 mg oral tablet (5 sources) Opioid Agonist Start: 09-21-2024 End: 09-27-2024 take 1 tablet by mouth every six hours as needed oxyCODONE 5 MG immediate release tablet Indications: Frontal mass of brain Take 1 Tablet by mouth every 6 hours as needed for up to 5 days. 20 Tablet 09/22/2024 11:17 AM EST 09/22/2024 09/27/2024 Active Start: 09-21-2024 take 5 mg by mouth e very four hours as needed 5 mg, Oral, EVERY 4 HOURS PRN, Starting on Tue09/21/24 at 1112, Until Discontinued, Moderate Pain (pain score 4,5,6) Start: 09-14-2024 5 mg, Oral, EV DANIEL 4 HOURS PRN, Starting on Tue09/14/24 at 1300, Until Discontinued, Moderate Pain (pain score 4,5,6), Severe Pain (pain score 7,8,9,10) Completed/Discontinued Medications Medication Drug Class(es) Dates Sig (Normalized) Sig (Original) aprepitant 40 mg oral capsule (1 source) Substance P/Neurokinin-1 Receptor Antagonist Start: 09-21-2024 End: 09-21-2024 take 1 dose by mouth once 40 mg, Oral, ONCE, 1 dose, On Tue09/21/24 at 0730, Pre-op Start: 09-21-2024 End: 09-21-2024 take 1 dose by mouth once 40 mg, Oral, ONCE, 1 dose, O n Tue09/21/24 at 0730, Pre-op ceFAZolin 2000 mg injection (1 source) Cephalosporin Antibacterial Start: 09-21-2024 End: 09-21-2024 2,000 mg, Intravenous, EVERY 8 HOURS ANTIBIOTIC, 2 doses, First dose on Tue09/21/24 at 1200, Last dose on Tue09/21/24 at 2200 dexamethasone 2 mg oral tablet (20 sources) Corticosteroid Start: 11-05-2024 End: 04-18-2025 take 1 tablet by mouth once daily Dexamethasone 2 mg tablet Discontinued 2 mg PO daily 30 0 March 18, 2025 3:08pm April 18, 2025 10:02am Glioblastoma multiforme Malignant neoplasm of brain, unspecified Start: 11-01-2024 End: 11-05-2024 take 3 mg by mouth once daily Dexamethasone 2 mg table t Discontinued 3 mg PO daily November 01, 2024 4:00pm November 05, 2024 5:06pm Start: 10-11-2024 End: 11-01-2024 take 1 tablet by mouth once daily Dexamethasone 2 mg t ablet Discontinued 2 mg PO daily October 11, 2024 4:31pm November 01, 2024 4:01pm Start: 09-15-2024 End: 12-30-2024 take 1 tablet by mouth twice daily Dexamethasone 2 mg tablet Discontinued 2 mg PO TWICE A DAY October 05, 2024 1:00am October 11, 2024 4:31pm Start: 09-14-2024 take 4 mg by mouth twice daily 4 mg, Oral, 2 TIMES DAILY, First dose on Tue09/14/24 at 2100, Until Discontinued Start: 09-14-2024 End: 09-14-2024 take 4 mg intravenous bolus route every six hours 4 mg, Intravenous Push, Every 6 hours, First dose on Tue09/14/24 at 1330, Until Discontinued docusate sodium 50 mg / sennosides, shelter 8.6 mg oral capsule (20 sources) Start: 10-23-2024 End: 01-29-2025 Sennosides-Docusate Sodium (Senna Plus) 8.6-50 mg capsule Discontinued 1 NMA PO AT BEDTIME 30 3 January 04, 2025 9:45am January 24, 2025 5:04pm Glioblastoma multiforme Malignant neoplasm of brain, unspecified Gadoterate Meglumine (DOTAREM) 10 MMOL/20ML solution (1 source) Start: 09-14-2024 End: 09-14-2024 take 1 dose intravenously once 20 mL, Intravenous Push, Once at Radiology exam, 1 dose, Starting on Tue09/14/24 at 1105, Until Tue09/14/24 at 1106, Imaging Protocol Orders iohexol (OMNIPAQUE) 300 MG/ML injection (1 source) Start: 09-14-2024 End: 09-14-2024 take 1 dose by mouth once 50 mL, Oral, Once at Radiology exam, 1 dose, Starting on Tue09/14/24 at 2237, Until Tue09/14/24 at 2237, Imaging Protocol Orders iohexol (OMNIPAQUE) 350 MG/ML injection (1 source) Start: 09-14-2024 End: 09-14-2024 take 1 dose intravenously once 100 mL, Intravenous Push, Once at Radiology exam, 1 dose, Starting on Tue09/14/24 at 2237, Until Tue09/14/24 at 2237, Imaging Protocol Orders levoFLOXacin 750 mg oral tablet (17 sources) Quinolone Antimicrobial Start: 02-12-2025 End: 03-18-2025 take 1 tablet by mouth every twenty-four hours Levofloxacin 750 mg tablet Discontinued 750 mg PO Q24H 10 February 12, 2025 12:00am March 18, 2025 2:59pm omeprazole 20 mg delayed release oral capsule (20 sources) Proton Pump Inhibitor Start: 10-29-2024 End: 03-18-2025 take 1 capsule by mouth once daily Omeprazole 20 mg capsule,delayed release(DR/EC) Discontinued 20 mg PO daily 30 October 29, 2024 1:00am March 18, 2025 3:00pm Long-term current use of steroids pantoprazole 40 mg delayed release oral tablet (20 sources) Proton Pump Inhibitor Start: 10-05-2024 End: 10-11-2024 take 1 tablet by mouth once daily Pantoprazole 40 mg tablet,delayed release (DR/EC) Discontinued 40 mg PO daily October 05, 2024 1:00am October 11, 2024 4:31pm Start: 09-15-2024 take 1 tablet by donna once daily 30 minutes before breakfast pantoprazole (PROTONIX) 40 MG tablet Take 1 Tablet by mouth daily (30 minutes before breakfast). 30 Tablet 09/15/2024 Active 72 hr scopolamine 0.0139 mg/hr transdermal system (1 source) Anticholinergic Start: 09-21-2024 End: 09-22-2024 1.5 mg, Transdermal, EVERY 72 HOURS, First dose on Tue09/21/24 at 0000, Until Discontinued 1000 ml sodium chloride 9 mg/ml injection (1 source) Start: 09-21-2024 End: 09-22-2024 500 mL, at 30 mL/hr, Intravenous, Once Continuous, Starting on Tue09/21/24 at 1200, Until 09/22/24 at 0420 temozolomide 100 mg oral capsule (20 sources) Alkylating Drug Start: 04-01-2025 End: 04-18-2025 take 1 capsule by mouth once daily Temozolomide 250 mg capsule Discontinued 250 mg PO daily April 01, 2025 12:00am April 18, 2025 1:09pm Start: 04-01-2025 End: 04-18-2025 take 1 capsule by mouth once daily Temozolomide 100 mg capsule Discontinued 200 mg PO daily April 01, 2025 12:00am April 18, 2025 1:08pm Start: 11-30-2024 End: 04-01-2025 take 1 capsule by mouth once daily Temozolomide 180 mg capsule Discontinued 180 mg PO daily November 30, 2024 1:00am April 01, 2025 2:28pm must be taken on empty stomach Problems Active Problems Problem Classification Problem Date Documented Da te Episodic/Chronic Cancer of brain and nervous system (20 sources) Glioma; Translations: [Malignant neoplasm of brain, unspecified] Onset: 11-19-2024 09-17-2024 Chronic Comment on above: 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 He now has residual weakness on the right side.Radiation and Temodar 180mg on 10/29/2024- 12/09/24. 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 He now has residual weakness on the right side.Radiation and Temodar 180mg on 10/29/2024- 12/09/24. Started Temodar 350mg daily x 5 on 01/07/2025. 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 He now has residual weakness on the right side.Radiation and Temodar 180mg on 10/29/2024- 12/09/24. Started Temodar 350mg daily x 5 on 01/07/2025.Comes for follow up.Dre count is OK. 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 He now has residual weakness on the right side.Radiation and Temodar 180mg on 10/29/2024- 12/09/24. Started Temodar 350mg daily x 5 on 01/07/2025.Comes for follow up.2 weeks after C2, Dre Counts reviewed, OK for therapy. 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 He now has residual weakness on the right side.Radiation and Temodar 180mg on 10/29/2024- 12/09/24. Started Temodar 350mg daily x 5 on 01/07/2025.Comes for follow up.MRI 02/13/2025 reviewed, Slight increase in tumors, not significant for progressive disease.Can proceed with C3 next week. 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 He now has residual weakness on the right side.Radiation and Temodar 180mg on 10/29/2024- 12/09/24. Started Temodar 350mg daily x 5 on 01/07/2025.Comes for follow up.MRI 02/13/2025 reviewed, Slight increase in tumors, not significant for progressive disease.Comes for C3.Counts and chemistry reviewed and OK for therapy. 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 He now has residual weakness on the right side.Radiation and Temodar 180mg on 10/29/2024- 12/09/24. Started Temodar 350mg daily x 5 on 01/07/2025.MRI 02/13/2025 reviewed, Slight increase in tumors, not significant for progressive disease. 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 He now has residual weakness on the right side.Radiation and Temodar 180mg on 10/29/2024- 12/09/24. Started Temodar 350mg daily x 5 on 01/07/2025.MRI 02/13/2025 reviewed, Slight increase in tumors, not significant for progressive disease.Comes for Follow up.MRI on 04/08/2025 showed increasing sizes of brain masses. Discussed further management, changing to Avastin and Irinotecan vs Avastin alone vs observation. 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 He now has residual weakness on the right side.Radiation and Temodar 180mg on 10/29/2024- 12/09/24. Started Temodar 350mg daily x 5 on 01/07/2025.MRI 02/13/2025 reviewed, Slight increase in tumors, not significant for progressive disease.Comes for Follow up.MRI on 04/08/2025 showed increasing sizes of brain masses. Progressive disease but may be months. Discussed further management, changing to Avastin and Irinotecan vs Avastin alone vs observation. 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 He now has residual weakness on the right side.Radiation and Temodar 180mg on 10/29/2024- 12/09/24. Started Temodar 350mg daily x 5 on 01/07/2025.MRI 02/13/2025 reviewed, Slight increase in tumors, not significant for progressive disease.MRI on 04/08/2025 showed increasing sizes of brain masses. Progressive disease but may be months. Comes to start therapy.Discussed further management, doing Avastin and Irinotecan. Pt want to proceed with Irinotecan and Avastin analogue.Counts reviewed, OK for therapy. 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 He now has residual weakness on the right side.Radiation and Temodar 180mg on 10/29/2024- 12/09/24. Started Temodar 350mg daily x 5 on 01/07/2025.MRI 02/13/2025 reviewed, Slight increase in tumors, not significant for progressive disease.MRI on 04/08/2025 showed increasing sizes of brain masses. Progressive disease but may be months. On therapy with Avastin and Irinotecan. Comes for C2.Counts and chemistry reviewed, OK for therapy. 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 He now has residual weakness on the right side.Radiation and Temodar 180mg on 10/29/2024- 12/09/24. Started Temodar 350mg daily x 5 on 01/07/2025.MRI 02/13/2025 reviewed, Slight increase in tumors, not significant for progressive disease.MRI on 04/08/2025 showed increasing sizes of brain masses. Progressive disease but may be months. On therapy with Avastin and Irinotecan. 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 He now has residual weakness on the right side.Radiation and Temodar 180mg on 10/29/2024- 12/09/24. Started Temodar 350mg daily x 5 on 01/07/2025.MRI 02/13/2025 reviewed, Slight increase in tumors, not significant for progressive disease.MRI on 04/08/2025 showed increasing sizes of brain masses. Progressive disease, prognosis poor but may be months. On therapy with Avastin and Irinotecan. Comes for C4.Counts and Chemistry reviewed, OK for therapy. 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 Other aftercare (20 sources) Long-term current use of steroid; Translations: [Long-term (current) use of steroids] 10-29-2024 Episodic Other aftercare (1 source) Encounter for adjustment and management of vascular access device; Translations: [Encounter for adjustment and management of vascular access device] Onset: 05-14-2025 Episodic Other connective tissue disease (12 sources) Recurrent falls ; Translations: [Repeated falls] 04-01-2025 Episodic Other connective tissue disease (10 sources) Swelling of left lower limb; Translations: [Other specified soft tissue disorders] 05-08-2025 Episodic Other connective tissue disease (1 source) Other specified soft tissue disorders; Translations: [Other specified soft tissue disorders] Onset: 05-13-2025 Episodic Other nervous system disorders (10 sources) Mass lesion of brain; Translations: [Other specified disorders of brain] Onset: 09-14-2024 09-14-2024 Chronic Other skin disorders (1 source) Mass lesion of brain 09-22-2024 Episodic Paralysis (20 sources) Hemiparesis; Translations: [Hemiplegia, unspecified affecting unspecified side] 01-10-2025 Chronic Comment on above: R hemiparesis due to Glioblstoma. R hemiparesis due to Glioblstoma, reportedly getting worse. R hemiparesis due to Glioblstoma, Phlebitis; thrombophlebitis and thromboembolism (20 sources) Deep venous thrombosis; Translations: [Acute embolism and thrombosis of unspecified deep veins of unspecified lower extremity] Onset: 06-05-2025 01-24-2025 Episodic Comment on above: Diagnosed on 01/11/20, on Eliquis Diagnosed on 01/11/20, on Eliquis.Doppler on 02/25/2025 reviewed, Clot is decreasing. Diagnosed on 3/27/20 25, on Eliquis. 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,C71.9 - Malignant neoplasm of brain, unspecified Unclassified (16 sources) RIGHT ARM HEMIPARESIS Unclassified (1 source) Encounter for other specified prophylactic measures; Translations: [Encounter for other specified prophylactic measures] Onset: 04-25-2025 Unclassified (1 source) Cough, unspecified; Translations: [Cough, unspecified] Onset: 02-18-2025 Past or Other Problems Problem Classification Problem Date Documented Da te Episodic/Chronic Abdominal pain (20 sources) Right flank pain; Translations: [Unspecified abdominal pain] Onset: 01-23-2025 01-17-2025 Episodic Comment on above: No abnormality on CT . May be due to Posture. Administrative/social admission (20 sources) Patient encounter status; Translations: [Counseling, unspecified] Onset: 10-23-2024 10-23-2024 Episodic Malaise and fatigue (1 source) Other fatigue; Translations: [Other fatigue] Onset: 10-16-2024 Episodic Other connective tissue disease (1 source) Repeated falls; Translations: [Repeated falls] Onset: 04-01-2025 Episodic Residual codes; unclassified (1 source) Localized edema; Translations: [Localized edema] Onset: 01-15-2025 Episodic Results Test Name Value Interpretation Reference Range Facility [facility] LIZA TEST Positive Normal [facility] Comment on above: Performed By: #### L 9000.0800 ####[facility] [address] [place], [address] Base excess Calc (Bld) [Moles/Vol] -16 mmol/L Low -2 to +2 [facility] Comment on above: Performed By: #### L 9000.0800 ####[facility] [address] [place], [address] Blood Gas Type ART [facility] Comment on above: Performed By: #### L 9000.0800 ####[facility] [address] [place], [address] CO2 [Moles/Vol] 17 mmol/L Normal [facility] Comment on above: Performed By: #### L 9000.0800 ####[facility] [address] [place], [address] FI02 15.0 [facility] Comment on above: Performed By: #### L 9000.0800 ####[facility] [address] [place], [address] HCO3 (Bld) [Moles/Vol] 15.5 mmol/L Low 22-26 [facility] Comment on above: Performed By: #### L 9000.0800 ####[facility] [address] [place], [address] Mode Not entered Normal [facility] Comment on above: Performed By: #### L 9000.0800 ####[facility] [address] [place], [address] O2 Delivery Dev Bagging Normal [facility] Comment on above: Performed By: #### L 9000.0800 ####[facility] [address] [place], [address] pCO2 62.3 mmHg High 35-45 [facility] Comment on above: Performed By: #### L 9000.0800 ####[facility] [address] [place], [address] pH (Bld) 7.00 [pH] Invalid Interpretation Code 7.35-7.45 [facility] Comment on above: Performed By: #### L 9000.0800 ####[facility] [address] [place], [address] PO2 83 mmHG Normal 75-100 [facility] Comment on above: Performed By: #### L 9000.0800 ####[facility] [address] [place], [address] Read Back By Yes [facility] Comment on above: Performed By: #### L 9000.0800 ####[facility] [address] [place], [address] [facility] Comment on above: Performed By: #### L 9000.0800 ####[facility] [address] [place], [address] SITE R Radial [facility] Comment on above: Performed By: #### L 9000.0800 ####[facility] [address] [place], [address] SO2 88 Low 95-99 [facility] Comment on above: Performed By: #### L 9000.0800 ####[facility] [address] [place], [address] Time Given 03:48:50 [facility] Comment on above: Performed By: #### L 9000.0800 ####[facility] [address] [place], [address] CBC W/Diff, Automatedon 09-2 PATH REV May foll [facility] Comment on above: Performed By: #### L 300.4310, L300.3900, L500.4050, L503.6005, L100.0100 ####[facility] [address] [place], [address] Anisocytosis Ql (Bld) 2+ Normal [facility] Comment on above: Performed By: #### L 300.4310, L300.3900, L500.4050, L503.6005, L100.0100 ####[facility] [address] [place], [address] MACROCYTOSIS 2+ Normal [facility] Comment on above: Performed By: #### L 300.4310, L300.3900, L500.4050, L503.6005, L100.0100 ####[facility] [address] [place], [address] POLYCHROMASIA 1+ Normal [facility] Comment on above: Performed By: #### L 300.4310, L300.3900, L500.4050, L503.6005, L100.0100 ####[facility] [address] [place], [place], [phone] PLT EST ADEQUATE Normal ADEQ [facility] Comment on above: Performed By: #### L 300.4310, L300.3900, L500.4050, L503.6005, L100.0100 ####[facility] [address] [place], [address] Absolute Lymph 4.27 X10 3/uL Normal 0.83-4.51 [facility] Comment on above: Performed By: #### L 300.4310, L300.3900, L500.4050, L503.6005, L100.0100 ####[facility] [address] [place], [address] Absolute Neut 10.3 X10 3/uL High 2.0-7.7 [facility] Comment on above: Performed By: #### L 300.4310, L300.3900, L500.4050, L503.6005, L100.0100 ####[facility] [address] [place], [address] BAND 6 High 0-5 [facility] Comment on above: Performed By: #### L 300.4310, L300.3900, L500.4050, L503.6005, L100.0100 ####[facility] [address] [place], [address] Lymphocytes (Bld) [#/Vol] 24 10*3/uL Normal 19-41 [facility] Comment on above: Performed By: #### L 300.4310, L300.3900, L500.4050, L503.6005, L100.0100 ####[facility] [address] [place], [address] META 7 High 0-1 [facility] Comment on above: Performed By: #### L 300.4310, L300.3900, L500.4050, L503.6005, L100.0100 ####[facility] [address] [place], [address] Metamyelocytes/100 WBC (Bld) 2 % High 0-0 [facility] Comment on above: Performed By: #### L 300.4310, L300.3900, L500.4050, L503.6005, L100.0100 ####[facility] [address] [place], [address] MONOCYTE 9 Normal 0-10 [facility] Comment on above: Performed By: #### L 300.4310, L300.3900, L500.4050, L503.6005, L100.0100 ####[facility] [address] [place], [address] Nucleated RBC (Bld) [#/Vol] 3 10*3/uL Normal 0-5 [facility] Comment on above: Performed By: #### L 300.4310, L300.3900, L500.4050, L503.6005, L100.0100 ####[facility] [address] [place], [address] SEGS 52 Normal 47-70 [facility] Comment on above: Performed By: #### L 300.4310, L300.3900, L500.4050, L503.6005, L100.0100 ####[facility] [address] [place], [address] TOTAL CELLS 100 Normal MANUAL DIFF [facility] Comment on above: Performed By: #### L 300.4310, L300.3900, L500.4050, L503.6005, L100.0100 ####[facility] [address] [place], [address] Comprehensive Metabolic Prof ilon 07-08-2025 Albumin [Mass/Vol] 3.8 g/dL Normal 3.5-5.0 [facility] Comment on above: Performed By: #### L 300.4310, L300.3900, L500.4050, L503.6005, L100.0100 ####[facility] [address] [place], [address] Albumin/Globulin [Mass ratio] 1.4 {ratio} Normal 0.9-2.4 [facility] Comment on above: Performed By: #### L 300.4310, L300.3900, L500.4050, L503.6005, L100.0100 ####[facility] [address] [place], [address] ALK PHOS 68 U/L Normal 40-129 [facility] Comment on above: Performed By: #### L 300.4310, L300.3900, L500.4050, L503.6005, L100.0100 ####[facility] [address] [place], [address] ALT [Catalytic activity/Vol] 90 U/L High <=46 [facility] Comment on above: Result Comment: Hemo lysis present, Results??could be affected.?? Performed By: #### L 300.4310, L300.3900, L500.4050, L503.6005, L100.0100 ####[facility] [address] [place], [address] AST [Catalytic activity/Vol] 56 U/L High <=37 [facility] Comment on above: Result Comment: Hemo lysis present, Results??could be affected.?? Performed By: #### L 300.4310, L300.3900, L500.4050, L503.6005, L100.0100 ####[facility] [address] [place], [address] Bilirubin [Mass/Vol] 0.23 mg/dL Normal 0.00-1.30 [facility] Comment on above: Performed By: #### L 300.4310, L300.3900, L500.4050, L503.6005, L100.0100 ####[facility] [address] [place], [address] BUN/CRE 18.1 RATIO Normal 10-20 [facility] Comment on above: Performed By: #### L 300.4310, L300.3900, L500.4050, L503.6005, L100.0100 ####[facility] [address] [place], [address] Calcium [Mass/Vol] 9.1 mg/dL Normal 7.6-11.0 [facility] Comment on above: Performed By: #### L 300.4310, L300.3900, L500.4050, L503.6005, L100.0100 ####[facility] [address] [place], [address] Chloride [Moles/Vol] 98 mmol/L Normal 98-108 [facility] Comment on above: Performed By: #### L 300.4310, L300.3900, L500.4050, L503.6005, L100.0100 ####[facility] [address] [place], [address] CO2 [Moles/Vol] 10.5 mmol/L Low 21.0-32.0 [facility] Comment on above: Performed By: #### L 300.4310, L300.3900, L500.4050, L503.6005, L100.0100 ####[facility] [address] [place], [address] Creatinine [Mass/Vol] 1.39 mg/dL High 0.70-1.20 [facility] Comment on above: Performed By: #### L 300.4310, L300.3900, L500.4050, L503.6005, L100.0100 ####[facility] [address] [place], [address] ECRCL 89.33 ml/min Normal 50-250 [facility] Comment on above: Performed By: #### L 300.4310, L300.3900, L500.4050, L503.6005, L100.0100 ####[facility] [address] [place], [address] GAP 30 High 5-15 [facility] Comment on above: Performed By: #### L 300.4310, L300.3900, L500.4050, L503.6005, L100.0100 ####[facility] [address] [place], [address] GFR/1.73 sq M.predicted among non-blacks MDRD (S/P/Bld) [Vol rate/Area] 62 mL/min/{1.73_m2} Normal >60 [facility] Comment on above: Result Comment: mL/m in/1.73m2 CKD-EPI Creatinine Equation (2020) Performed By: #### L 300.4310, L300.3900, L500.4050, L503.6005, L100.0100 ####[facility] [address] [place], [address] Globulin (S) [Mass/Vol] 2.8 g/dL Normal 2.2-4.2 [facility] Comment on above: Performed By: #### L 300.4310, L300.3900, L500.4050, L503.6005, L100.0100 ####[facility] [address] [place], [address] Glucose [Mass/Vol] 278 mg/dL High 70-99 [facility] Comment on above: Performed By: #### L 300.4310, L300.3900, L500.4050, L503.6005, L100.0100 ####[facility] [address] [place], [address] Potassium [Moles/Vol] 4.8 mmol/L Normal 3.3-5.1 [facility] Comment on above: Result Comment: Hemo lysis present, Results??could be affected.?? Performed By: #### L 300.4310, L300.3900, L500.4050, L503.6005, L100.0100 ####[facility] [address] [place], [address] Sodium [Moles/Vol] 139 mmol/L Normal 133-145 [facility] Comment on above: Performed By: #### L 300.4310, L300.3900, L500.4050, L503.6005, L100.0100 ####[facility] [address] [place], [address] T PROT 6.7 g/dL Normal 5.9-8.4 [facility] Comment on above: Performed By: #### L 300.4310, L300.3900, L500.4050, L503.6005, L100.0100 ####[facility] [address] [place], [address] Urea nitrogen [Mass/Vol] 25 mg/dL High 4-19 [facility] Comment on above: Performed By: #### L 300.4310, L300.3900, L500.4050, L503.6005, L100.0100 ####[facility] [address] [place], [address] L501.4021on 07-08-2025 Trop T High Sen 53 ng/L High <=22 [facility] Comment on above: Result Comment: Hemo lysis present, Results??could be affected.??Critical Result(s) Called at 0403: by: GABRIELA JOHNSON. ??Results read back by same. Performed By: #### L 501.4021 ####[facility] [address] [place], [address] Lactic Acidon 07-08-2025 Lactate [Moles/Vol] 15.0 mmol/L Invalid Interpretation Code 0.0-2.0 [facility] Comment on above: Order Comment: Y Result Comment: Crit ical Result(s) Called at 0403: by:?? GABRIELA JOHNSON. Results read back by same. Performed By: #### L 300.4310, L300.3900, L500.4050, L503.6005, L100.0100 ####[facility] [address] [place], [address] Partial Thromboplast Timeon 07-08-2025 aPTT Coag (Bld) [Time] 22.5 s Low 24.1-36.2 [facility] Comment on above: Performed By: #### L 300.4310, L300.3900, L500.4050, L503.6005, L100.0100 ####[facility] [address] [place], [address] Prothrombin Time w/INRon INR Coag (PPP) [Relative time] 1.1 {INR} Normal [facility] Comment on above: Performed By: #### L 300.4310, L300.3900, L500.4050, L503.6005, L100.0100 ####[facility] [address] [place], [address] PT Coag (PPP) [Time] 14.9 s Normal 11.7-14.9 [facility] Comment on above: Performed By: #### L 300.4310, L300.3900, L500.4050, L503.6005, L100.0100 ####[facility] [address] [place], [address] Urinalysis, Completeon 07-08 BACTERIA 3+ /hpf Normal None Seen [facility] Comment on above: Order Comment: COLLE CTOR TO SPECIFY Performed By: #### L 400.0001 ####[facility] [address] [place], [address] EPI,SQUAMOUS 5-10 SEEN Normal 0-5 [facility] Comment on above: Order Comment: COLLE CTOR TO SPECIFY Performed By: #### L 400.0001 ####[facility] [address] [place], [address] EPI,TRANSITION 0-5 SEEN Normal 0-5 [facility] Comment on above: Order Comment: COLLE CTOR TO SPECIFY Performed By: #### L 400.0001 ####[facility] [address] [place], [address] RBC 0-5 SEEN Normal 0-5 [facility] Comment on above: Order Comment: COLLE CTOR TO SPECIFY Performed By: #### L 400.0001 ####[facility] [address] [place], [address] WBC 0-5 SEEN Normal 0-5 [facility] Comment on above: Order Comment: JOSE CTOR TO SPECIFY Performed By: #### L 400.0001 ####[facility] [address] [facility] [place], [address] Mucus Ql (Urine sed) 0 SEEN Normal [facility] Comment on above: Order Comment: JOSE CTOR TO SPECIFY Performed By: #### L 400.0001 ####[facility] [address] [facility] [place], [address] Absolute lymphocyte countOrd ered By: Geoff Dallas on 06-19-2025 Lymphocytes Auto (Unsp spec) [#/Vol] 1.15 10*3/uL 0.83-4.51 [facility] Absolute neutrophil countOrd ered By: Geoff Dallas on 06-19-2025 Neutrophils (Bld) [#/Vol] 3.3 10*3/uL 2.0-7.7 [facility] Anion gap in Serum or Plasma Ordered By: Geoff Dallas on 06-19-2025 Anion gap [Moles/Vol] 13 mmol/L 5-15 [facility] Automated lymphocyte count a s percentage of total leukocytesOrdered By: Geoff Dallas on 06-19-2025 Lymphocytes/100 WBC Auto (Unsp spec) 21.6 % 19-41 [facility] BUN/creatinine ratioOrdered By: Geoff Dallas on 06-19-2025 Urea nitrogen/Creatinine [Mass ratio] 19.8 mg/mg 10-20 [facility] Basophil percentageOrdered B y: Geoff Dallas on 06-19-2025 Basophils/100 WBC (Bld) 1.3 % High 0-1 [facility] Bilirubin, totalOrdered By: Geoff Dallas on 06-19-2025 Bilirubin [Mass/Vol] 0.22 mg/dL 0.00-1.30 [facility] CBC W/Diff, Automatedon Absolute Lymph 1.15 X10 3/uL Normal 0.83-4.51 [facility] Comment on above: Performed By: #### L 100.0100, L500.4050 ####[facility] [address] [place], [address] Absolute Neut 3.3 X10 3/uL Normal 2.0-7.7 [facility] Comment on above: Performed By: #### L 100.0100, L500.4050 ####[facility] [address] [place], [address] Basophils/100 WBC (Bld) 1.3 % High 0-1 [facility] Comment on above: Performed By: #### L 100.0100, L500.4050 ####[facility] [address] [place], [address] Eosinophils/100 WBC (Bld) 0.6 % Normal 0-5 [facility] Comment on above: Performed By: #### L 100.0100, L500.4050 ####[facility] [address] [place], [address] Erythrocyte distribution width (RBC) [Ratio] 15.0 % High 11.6-14.6 [facility] Comment on above: Performed By: #### L 100.0100, L500.4050 ####[facility] [address] [place], [address] Hematocrit (Bld) [Volume fraction] 41.1 % Normal 40-54 [facility] Comment on above: Performed By: #### L 100.0100, L500.4050 ####[facility] [address] [place], [address] Hemoglobin (Bld) [Mass/Vol] 14.4 g/dL Normal 13.0-16.5 [facility] Comment on above: Performed By: #### L 100.0100, L500.4050 ####[facility] [address] [place], [address] IG% 4.700 High 0.0-0.9 [facility] Comment on above: Result Comment: IG% - Immature Granulocytes (promyelocytes, myelocytes andmetamyelocytes) > 1% indicates that a LEFT SHIFT is Present. Performed By: #### L 100.0100, L500.4050 ####[facility] [address] [place], [address] Lymphocytes/100 WBC (Bld) 21.6 % Normal 19-41 [facility] Comment on above: Performed By: #### L 100.0100, L500.4050 ####[facility] [address] [place], [address] MCH (RBC) [Entitic mass] 34.4 pg High 27.0-32.0 [facility] Comment on above: Performed By: #### L 100.0100, L500.4050 ####[facility] [address] [place], [address] MCHC (RBC) [Mass/Vol] 35.0 g/dL Normal 32-36 [facility] Comment on above: Performed By: #### L 100.0100, L500.4050 ####[facility] [address] [place], [address] MCV (RBC) [Entitic vol] 98.3 fL High 80-94 [facility] Comment on above: Performed By: #### L 100.0100, L500.4050 ####[facility] [address] [place], [address] Monocytes/100 WBC (Bld) 9.4 % Normal 0-10 [facility] Comment on above: Performed By: #### L 100.0100, L500.4050 ####[facility] [address] [place], [address] Neutrophils/100 WBC (Bld) 62.4 % Normal 47-70 [facility] Comment on above: Performed By: #### L 100.0100, L500.4050 ####[facility] [address] [place], [address] Nucleated RBC (Bld) [#/Vol] 1.1 10*3/uL Normal 0-5 [facility] Comment on above: Performed By: #### L 100.0100, L500.4050 ####[facility] [address] [place], [address] Platelet mean volume (Bld) [Entitic vol] 9.7 fL Normal 6.2-12.0 [facility] Comment on above: Performed By: #### L 100.0100, L500.4050 ####[facility] [address] [place], [address] Platelets (Bld) [#/Vol] 185 10*3/uL Normal 150-450 [facility] Comment on above: Performed By: #### L 100.0100, L500.4050 ####[facility] [address] [place], [address] RBC (Bld) [#/Vol] 4.18 10*6/uL Low 4.6-6.2 [facility] Comment on above: Performed By: #### L 100.0100, L500.4050 ####[facility] [address] [place], [address] RDW SD 54.1 fl High 35.1-43.9 [facility] Comment on above: Performed By: #### L 100.0100, L500.4050 ####[facility] [address] [place], [address] WBC (Bld) [#/Vol] 5.3 10*3/uL Normal 4.4-11.0 [facility] Comment on above: Performed By: #### L 100.0100, L500.4050 ####[facility] [address] [place], [address] Carbon dioxide, total [Moles /volume] in Central venous bloodOrdered By: Geoff Dallas on 06-19-2025 CO2 [Moles/Vol] 22.1 mmol/L 21.0-32.0 [facility] Chloride assayOrdered By: Dian Dallas on 06-19-2025 Chloride [Moles/Vol] 107 mmol/L 98-108 [facility] Comprehensive Metabolic Prof ilon 06-19-2025 Albumin [Mass/Vol] 3.7 g/dL Normal 3.5-5.0 [facility] Comment on above: Performed By: #### L 100.0100, L500.4050 ####[facility] [address] [place], [address] Albumin/Globulin [Mass ratio] 1.4 {ratio} Normal 0.9-2.4 [facility] Comment on above: Performed By: #### L 100.0100, L500.4050 ####[facility] [address] [place], [address] ALK PHOS 54 U/L Normal 40-129 [facility] Comment on above: Performed By: #### L 100.0100, L500.4050 ####[facility] [address] [place], [address] ALT [Catalytic activity/Vol] 48 U/L High <=46 [facility] Comment on above: Performed By: #### L 100.0100, L500.4050 ####[facility] [address] [place], [address] AST [Catalytic activity/Vol] 22 U/L Normal <=37 [facility] Comment on above: Result Comment: Hemo lysis present, Results??could be affected.?? Performed By: #### L 100.0100, L500.4050 ####[facility] [address] [place], [address] Bilirubin [Mass/Vol] 0.22 mg/dL Normal 0.00-1.30 [facility] Comment on above: Performed By: #### L 100.0100, L500.4050 ####[facility] [address] [place], [address] BUN/CRE 19.8 RATIO Normal 10-20 [facility] Comment on above: Performed By: #### L 100.0100, L500.4050 ####[facility] [address] [place], [address] Calcium [Mass/Vol] 9.0 mg/dL Normal 7.6-11.0 [facility] Comment on above: Performed By: #### L 100.0100, L500.4050 ####[facility] [address] [place], [address] Chloride [Moles/Vol] 107 mmol/L Normal 98-108 [facility] Comment on above: Performed By: #### L 100.0100, L500.4050 ####[facility] [address] [place], [address] CO2 [Moles/Vol] 22.1 mmol/L Normal 21.0-32.0 [facility] Comment on above: Performed By: #### L 100.0100, L500.4050 ####[facility] [address] [place], [address] Creatinine [Mass/Vol] 0.91 mg/dL Normal 0.70-1.20 [facility] Comment on above: Performed By: #### L 100.0100, L500.4050 ####[facility] [address] [place], [address] ECRCL 130.53 ml/min Normal 50-250 [facility] Comment on above: Performed By: #### L 100.0100, L500.4050 ####[facility] [address] [place], [address] GAP 13 Normal 5-15 [facility] Comment on above: Performed By: #### L 100.0100, L500.4050 ####[facility] [address] [place], [address] GFR/1.73 sq M.predicted among non-blacks MDRD (S/P/Bld) [Vol rate/Area] 103 mL/min/{1.73_m2} Normal >60 [facility] Comment on above: Result Comment: mL/m in/1.73m2 CKD-EPI Creatinine Equation (2020) Performed By: #### L 100.0100, L500.4050 ####[facility] [address] [place], [address] Globulin (S) [Mass/Vol] 2.6 g/dL Normal 2.2-4.2 [facility] Comment on above: Performed By: #### L 100.0100, L500.4050 ####[facility] [address] [place], [address] Glucose [Mass/Vol] 114 mg/dL High 70-99 [facility] Comment on above: Performed By: #### L 100.0100, L500.4050 ####[facility] [address] [place], [address] Potassium [Moles/Vol] 3.4 mmol/L Normal 3.3-5.1 [facility] Comment on above: Result Comment: Hemo lysis present, Results??could be affected.?? Performed By: #### L 100.0100, L500.4050 ####[facility] [address] [place], [address] Sodium [Moles/Vol] 142 mmol/L Normal 133-145 [facility] Comment on above: Performed By: #### L 100.0100, L500.4050 ####[facility] [address] [place], [address] T PROT 6.2 g/dL Normal 5.9-8.4 [facility] Comment on above: Performed By: #### L 100.0100, L500.4050 ####[facility] [address] [place], [address] Urea nitrogen [Mass/Vol] 18 mg/dL Normal 4-19 [facility] Comment on above: Performed By: #### L 100.0100, L500.4050 ####[facility] [address] [place], [address] Eosinophil percentageOrdered By: Geoff Dallas on 06-19-2025 Eosinophils/100 WBC (Bld) 0.6 % 0-5 [facility] Erythrocyte distribution wid th ratioOrdered By: Geoff Dallas on 06-19-2025 Erythrocyte distribution width (RBC) [Ratio] 15.0 % High 11.6-14.6 [facility] Erythrocyte distribution wid th standard deviationOrdered By: Geoff Dallas on 06-19-2025 Erythrocyte distribution width (RBC) [Ratio] 54.1 fl High 35.1-43.9 [facility] Glomerular filtration rate ( GFR) estimation/1.73 sq m using serum, plasma, or whole bOrdered By: Geoff Dallas on 06-19-2025 GFR/1.73 sq M.predicted among non-blacks MDRD (S/P/Bld) [Vol rate/Area] 103 mL/min/{1.73_m2} >60 [facility] Comment on above: mL/min/1.73m2 CKD-EP I Creatinine Equation (2020) Hematocrit Auto (Bld) [Volum e fraction]Ordered By: Geoff Dallas on 06-19-2025 Hematocrit (Bld) [Volume fraction] 41.1 % 40-54 [facility] Hemoglobin measurementOrdere d By: Geoff Dallas on 06-19-2025 Hemoglobin (Bld) [Mass/Vol] 14.4 g/dL 13.0-16.5 [facility] Immature granulocytes/100 WB C Auto (Bld)Ordered By: Geoff Dallas on 06-19-2025 Immature granulocytes/100 WBC (Bld) 4.700 % High 0.0-0.9 [facility] Comment on above: IG% - Immature Granu locytes (promyelocytes, myelocytes and metamyelocytes) > 1% indicates that a LEFT SHIFT is Present. Laboratory - Chemistry and C hemistry - challengeOrdered By: Geoff Dallas on 06-19-2025 AST [Catalytic activity/Vol] 22 U/L <38 [facility] Comment on above: Hemolysis present, R esults could be affected. MCV (mean corpuscular volume ) determinationOrdered By: Geoff Dallas on 06-19-2025 MCV (RBC) [Entitic vol] 98.3 fL High 80-94 [facility] Mean corpuscular hemoglobin (MCH) determinationOrdered By: Geoff Dallas on 06-19-2025 MCH (RBC) [Entitic mass] 34.4 pg High 27.0-32.0 [facility] Mean corpuscular hemoglobin concentration (MCHC) determinationOrdered By: Geoff Dallas on 06-19-2025 MCHC (RBC) [Mass/Vol] 35.0 g/dL 32-36 [facility] Mean platelet volume determi nationOrdered By: Geoff Dallas on 06-19-2025 Platelet mean volume (Bld) [Entitic vol] 9.7 fL 6.2-12.0 [facility] Monocyte percentageOrdered B y: Geoff Dallas on 06-19-2025 Monocytes/100 WBC (Bld) 9.4 % 0-10 [facility] Neutrophil percentageOrdered By: Geoff Dallas on 06-19-2025 Neutrophils/100 WBC (Bld) 62.4 % 47-70 [facility] Nucleated red blood cell per centageOrdered By: Geoff Dallas on 06-19-2025 Nucleated RBC/100 WBC (Bld) [Ratio] 1.1 % 0-5 [facility] Oncology Visit Reporton Oncology Visit Report Normal [facility] Platelet countOrdered By: Dian Dallas on 06-19-2025 Platelets (Bld) [#/Vol] 185 10*3/uL 150-450 [facility] Potassium measurement (mass/ volume)Ordered By: Geoff Dallas on 06-19-2025 Potassium (Unsp spec) [Mass/Vol] 3.4 mmol/L 3.3-5.1 [facility] Comment on above: Hemolysis present, R esults could be affected. RBC Auto (Bld) [#/Vol]Ordere d By: Geoff Dallas on 06-19-2025 RBC (Bld) [#/Vol] 4.18 10*6/uL Low 4.6-6.2 [facility] Serum creatinine measurement (mass/volume)Ordered By: Geoff Dallas on 06-19-2025 Creatinine [Mass/Vol] 0.91 mg/dL 0.70-1.20 [facility] Serum globulin measurementOr dered By: Geoff Dallas on 06-19-2025 Globulin (S) [Mass/Vol] 2.6 g/dL 2.2-4.2 [facility] Serum glucose measurement (m ass/volume)Ordered By: Geoff Dallas on 06-19-2025 Glucose [Mass/Vol] 114 mg/dL High 70-99 [facility] Serum or plasma alanine hale otransferase (ALT) measurementOrdered By: Geoff Dallas on 06-19-2025 ALT [Catalytic activity/Vol] 48 U/L High <47 [facility] Serum or plasma albumin marion urement (mass/volume)Ordered By: Geoff Dallas on 06-19-2025 Albumin [Mass/Vol] 3.7 g/dL 3.5-5.0 [facility] Serum or plasma albumin/glob ulin mass ratioOrdered By: Geoff Dallas on 06-19-2025 Albumin/Globulin [Mass ratio] 1.4 {ratio} 0.9-2.4 [facility] Serum or plasma alkaline jessica sphatase measurementOrdered By: Geoff Dallas on 06-19-2025 ALP [Catalytic activity/Vol] 54 U/L 40-129 [facility] Serum or plasma calcium marion urement (mass/volume)Ordered By: Geoff Dallas on 06-19-2025 Calcium [Mass/Vol] 9.0 mg/dL 7.6-11.0 [facility] Serum or plasma urea nitroge n measurement (mass/volume)Ordered By: Geoff Dallas on 06-19-2025 Urea nitrogen [Mass/Vol] 18 mg/dL 4-19 [facility] Sodium levelOrdered By: Minh Dallas on 06-19-2025 Sodium [Moles/Vol] 142 mmol/L 133-145 [facility] Total proteinOrdered By: Miguel Dallas on 06-19-2025 Protein [Mass/Vol] 6.2 g/dL 5.9-8.4 [facility] Urinalysis, Completeon 06-19 BACTERIA 0 SEEN Normal None Seen [facility] Comment on above: Order Comment: CLEAN CATCH Performed By: #### L 400.0001 ####[facility] [address] [place], [address] EPI,SQUAMOUS 0 SEEN Normal 0-5 [facility] Comment on above: Order Comment: CLEAN CATCH Performed By: #### L 400.0001 ####[facility] [address] [place], [address] Mucus Ql (Urine sed) 0 SEEN Normal [facility] Comment on above: Order Comment: CLEAN CATCH Performed By: #### L 400.0001 ####[facility] [address] [place], [address] RBC 0 SEEN Normal 0-5 [facility] Comment on above: Order Comment: CLEAN CATCH Performed By: #### L 400.0001 ####[facility] [address] [place], [address] WBC 0 SEEN Normal 0-5 [facility] Comment on above: Order Comment: CLEAN CATCH Performed By: #### L 400.0001 ####[facility] [address] [place], [address] White blood cell (WBC) count Ordered By: Geoff Dallas on 06-19-2025 WBC (Bld) [#/Vol] 5.3 10*3/uL 4.4-11.0 [facility] Absolute lymphocyte countOrd ered By: Geoff Dallas on 06-05-2025 Lymphocytes Auto (Unsp spec) [#/Vol] 1.20 10*3/uL 0.83-4.51 [facility] Absolute neutrophil countOrd ered By: Geoff Dallas on 06-05-2025 Neutrophils (Bld) [#/Vol] 3.7 10*3/uL 2.0-7.7 [facility] Anion gap in Serum or Plasma Ordered By: Geoff Johnsharifa on 06-05-2025 Anion gap [Moles/Vol] 13 mmol/L 02-28 [facility] Automated lymphocyte count a s percentage of total leukocytesOrdered By: Geoff Johnsharifa on 06-05-2025 Lymphocytes/100 WBC Auto (Unsp spec) 20.6 % [facility] BUN/creatinine ratioOrdered By: Geoff Johnsharifa on 06-05-2025 Urea nitrogen/Creatinine [Mass ratio] 15.8 mg/mg 08-05 [facility] Basophil percentageOrdered B y: Geoff Johnsharifa on 06-05-2025 Basophils/100 WBC (Bld) 0.7 % 0-1 [facility] Bilirubin Test strip Ql (U)O rdered By: Geoff Johnsharifa on 06-05-2025 Bilirubin Ql (U) Negative Negative [facility] Bilirubin, totalOrdered By: Geoff Johnsharifa on 06-05-2025 Bilirubin [Mass/Vol] 0.17 mg/dL 0.00-1.30 [facility] CBC W/Diff, Automatedon 05-18 Absolute Lymph 1.20 X10 3/uL Normal 0.83-4.51 [facility] Comment on above: Performed By: #### L 500.4050, L100.0100 ####[facility] [address] [place], [address] Absolute Neut 3.7 X10 3/uL Normal 2.0-7.7 [facility] Comment on above: Performed By: #### L 500.4050, L100.0100 ####[facility] [address] [place], [address] Basophils/100 WBC (Bld) 0.7 % Normal 0-1 [facility] Comment on above: Performed By: #### L 500.4050, L100.0100 ####[facility] [address] [place], [address] Eosinophils/100 WBC (Bld) 1.4 % Normal 0-5 [facility] Comment on above: Performed By: #### L 500.4050, L100.0100 ####[facility] [address] [place], [address] Erythrocyte distribution width (RBC) [Ratio] 15.1 % High 11.6-14.6 [facility] Comment on above: Performed By: #### L 500.4050, L100.0100 ####[facility] [address] [place], [address] Hematocrit (Bld) [Volume fraction] 42.2 % Normal 40-54 [facility] Comment on above: Performed By: #### L 500.4050, L100.0100 ####[facility] [address] [place], [address] Hemoglobin (Bld) [Mass/Vol] 14.4 g/dL Normal 13.0-16.5 [facility] Comment on above: Performed By: #### L 500.4050, L100.0100 ####[facility] [address] [place], [address] IG% 1.700 High 0.0-0.9 [facility] Comment on above: Result Comment: IG% - Immature Granulocytes (promyelocytes, myelocytes andmetamyelocytes) > 1% indicates that a LEFT SHIFT is Present. Performed By: #### L 500.4050, L100.0100 ####[facility] [address] [place], [address] Lymphocytes/100 WBC (Bld) 20.6 % Normal 19-41 [facility] Comment on above: Performed By: #### L 500.4050, L100.0100 ####[facility] [address] [place], [address] MCH (RBC) [Entitic mass] 34.4 pg High 27.0-32.0 [facility] Comment on above: Performed By: #### L 500.4050, L100.0100 ####[facility] [address] [place], [address] MCHC (RBC) [Mass/Vol] 34.1 g/dL Normal 32-36 [facility] Comment on above: Performed By: #### L 500.4050, L100.0100 ####[facility] [address] [place], [address] MCV (RBC) [Entitic vol] 100.7 fL High 80-94 [facility] Comment on above: Performed By: #### L 500.4050, L100.0100 ####[facility] [address] [place], [address] Monocytes/100 WBC (Bld) 12.3 % High 0-10 [facility] Comment on above: Performed By: #### L 500.4050, L100.0100 ####[facility] [address] [place], [address] Neutrophils/100 WBC (Bld) 63.3 % Normal 47-70 [facility] Comment on above: Performed By: #### L 500.4050, L100.0100 ####[facility] [address] [place], [address] Nucleated RBC (Bld) [#/Vol] 0 10*3/uL Normal 0-5 [facility] Comment on above: Performed By: #### L 500.4050, L100.0100 ####[facility] [address] [place], [address] Platelet mean volume (Bld) [Entitic vol] 10.1 fL Normal 6.2-12.0 [facility] Comment on above: Performed By: #### L 500.4050, L100.0100 ####[facility] [address] [place], [address] Platelets (Bld) [#/Vol] 168 10*3/uL Normal 150-450 [facility] Comment on above: Performed By: #### L 500.4050, L100.0100 ####[facility] [address] [place], [address] RBC (Bld) [#/Vol] 4.19 10*6/uL Low 4.6-6.2 [facility] Comment on above: Performed By: #### L 500.4050, L100.0100 ####[facility] [address] [place], [address] RDW SD 55.9 fl High 35.1-43.9 [facility] Comment on above: Performed By: #### L 500.4050, L100.0100 ####[facility] [address] [place], [address] WBC (Bld) [#/Vol] 5.8 10*3/uL Normal 4.4-11.0 [facility] Comment on above: Performed By: #### L 500.4050, L100.0100 ####[facility] [address] [place], [address] Carbon dioxide, total [Moles /volume] in Central venous bloodOrdered By: Geoff Dallas on 06-05-2025 CO2 [Moles/Vol] 22.3 mmol/L 21.0-32.0 [facility] Chloride assayOrdered By: Dian Dallas on 06-05-2025 Chloride [Moles/Vol] 108 mmol/L 98-108 [facility] Comprehensive Metabolic Prof ilon 06-05-2025 Albumin [Mass/Vol] 3.4 g/dL Low 3.5-5.0 [facility] Comment on above: Performed By: #### L 500.4050, L100.0100 ####[facility] [address] [place], [address] Albumin/Globulin [Mass ratio] 1.3 {ratio} Normal 0.9-2.4 [facility] Comment on above: Performed By: #### L 500.4050, L100.0100 ####[facility] [address] [place], [address] ALK PHOS 49 U/L Normal 40-129 [facility] Comment on above: Performed By: #### L 500.4050, L100.0100 ####[facility] [address] [place], [address] ALT [Catalytic activity/Vol] 46 U/L Normal <=46 [facility] Comment on above: Result Comment: Hemo lysis present, Results??could be affected.?? Performed By: #### L 500.4050, L100.0100 ####[facility] [address] [place], [address] AST [Catalytic activity/Vol] 29 U/L Normal <=37 [facility] Comment on above: Result Comment: Hemo lysis present, Results??could be affected.?? Performed By: #### L 500.4050, L100.0100 ####[facility] [address] [place], [address] Bilirubin [Mass/Vol] 0.17 mg/dL Normal 0.00-1.30 [facility] Comment on above: Performed By: #### L 500.4050, L100.0100 ####[facility] [address] [place], [address] BUN/CRE 15.8 RATIO Normal 10-20 [facility] Comment on above: Performed By: #### L 500.4050, L100.0100 ####[facility] [address] [place], [address] Calcium [Mass/Vol] 9.1 mg/dL Normal 7.6-11.0 [facility] Comment on above: Performed By: #### L 500.4050, L100.0100 ####[facility] [address] [place], [address] Chloride [Moles/Vol] 108 mmol/L Normal 98-108 [facility] Comment on above: Performed By: #### L 500.4050, L100.0100 ####[facility] [address] [place], [address] CO2 [Moles/Vol] 22.3 mmol/L Normal 21.0-32.0 [facility] Comment on above: Performed By: #### L 500.4050, L100.0100 ####[facility] [address] [place], [address] Creatinine [Mass/Vol] 1.10 mg/dL Normal 0.70-1.20 [facility] Comment on above: Performed By: #### L 500.4050, L100.0100 ####[facility] [address] [place], [address] ECRCL 107.47 ml/min Normal 50-250 [facility] Comment on above: Performed By: #### L 500.4050, L100.0100 ####[facility] [address] [place], [address] GAP 13 Normal 5-15 [facility] Comment on above: Performed By: #### L 500.4050, L100.0100 ####[facility] [address] [place], [address] GFR/1.73 sq M.predicted among non-blacks MDRD (S/P/Bld) [Vol rate/Area] 82 mL/min/{1.73_m2} Normal >60 [facility] Comment on above: Result Comment: mL/m in/1.73m2 CKD-EPI Creatinine Equation (2020) Performed By: #### L 500.4050, L100.0100 ####[facility] [address] [place], [address] Globulin (S) [Mass/Vol] 2.6 g/dL Normal 2.2-4.2 [facility] Comment on above: Performed By: #### L 500.4050, L100.0100 ####[facility] [address] [place], [address] Glucose [Mass/Vol] 86 mg/dL Normal 70-99 [facility] Comment on above: Performed By: #### L 500.4050, L100.0100 ####[facility] [address] [place], [address] Potassium [Moles/Vol] 4.0 mmol/L Normal 3.3-5.1 [facility] Comment on above: Result Comment: Hemo lysis present, Results??could be affected.?? Performed By: #### L 500.4050, L100.0100 ####[facility] [address] [place], [address] Sodium [Moles/Vol] 144 mmol/L Normal 133-145 [facility] Comment on above: Performed By: #### L 500.4050, L100.0100 ####[facility] [address] [place], [address] T PROT 6.1 g/dL Normal 5.9-8.4 [facility] Comment on above: Performed By: #### L 500.4050, L100.0100 ####[facility] [address] [place], [address] Urea nitrogen [Mass/Vol] 17 mg/dL Normal 4-19 [facility] Comment on above: Performed By: #### L 500.4050, L100.0100 ####[facility] [address] [place], [address] Eosinophil percentageOrdered By: Geoff Dallas on 06-05-2025 Eosinophils/100 WBC (Bld) 1.4 % 0-5 [facility] Erythrocyte distribution wid th ratioOrdered By: Geoff Dallas on 06-05-2025 Erythrocyte distribution width (RBC) [Ratio] 15.1 % High 11.6-14.6 [facility] Erythrocyte distribution wid th standard deviationOrdered By: Geoff [facility] on 06-05-2025 Erythrocyte distribution width (RBC) [Ratio] 55.9 fl High 35.1-43.9 [facility] Glomerular filtration rate ( GFR) estimation/1.73 sq m using serum, plasma, or whole bOrdered By: Geoff Dallas on 06-05-2025 GFR/1.73 sq M.predicted among non-blacks MDRD (S/P/Bld) [Vol rate/Area] 82 mL/min/{1.73_m2} >60 [place] Comment on above: mL/min/1.73m2 CKD-EP I Creatinine Equation (2020) Hematocrit Auto (Bld) [Volum e fraction]Ordered By: Geoff Dallas on 06-05-2025 Hematocrit (Bld) [Volume fraction] 42.2 % 40-54 [facility] Hemoglobin measurementOrdere d By: Geoff Dallas on 06-05-2025 Hemoglobin (Bld) [Mass/Vol] 14.4 g/dL 13.0-16.5 [facility] Immature granulocytes/100 WB C Auto (Bld)Ordered By: Geoff Dallas on 06-05-2025 Immature granulocytes/100 WBC (Bld) 1.700 % High 0.0-0.9 [facility] Comment on above: IG% - Immature Granu locytes (promyelocytes, myelocytes and metamyelocytes) > 1% indicates that a LEFT SHIFT is Present. Ketones Test strip Ql (U)Ord ered By: Geoff Dallas on 06-05-2025 Ketones Ql (U) Negative Negative [facility] Laboratory - Chemistry and C hemistry - challengeOrdered By: Geoff Dallas on 06-05-2025 AST [Catalytic activity/Vol] 29 U/L <38 [facility] Comment on above: Hemolysis present, R esults could be affected. MCV (mean corpuscular volume ) determinationOrdered By: Geoff Dallas on 06-05-2025 MCV (RBC) [Entitic vol] 100.7 fL High 80-94 [facility] Mean corpuscular hemoglobin (MCH) determinationOrdered By: Geoff Dallas on 06-05-2025 MCH (RBC) [Entitic mass] 34.4 pg High 27.0-32.0 [facility] Mean corpuscular hemoglobin concentration (MCHC) determinationOrdered By: Geoff Dallas on 06-05-2025 MCHC (RBC) [Mass/Vol] 34.1 g/dL 32-36 [facility] Mean platelet volume determi nationOrdered By: Geoff Dallas on 06-05-2025 Platelet mean volume (Bld) [Entitic vol] 10.1 fL 6.2-12.0 [facility] Microscopic analysis of urin e for red blood cells (RBC)Ordered By: Geoff Dallas on 06-05-2025 Microscopic analysis of urine for red blood cells (RBC) 0 SEEN /hpf 0- [facility] Monocyte percentageOrdered B y: Geoff Dallas on 06-05-2025 Monocytes/100 WBC (Bld) 12.3 % High 0-10 [facility] Mucus LM Ql (Urine sed)Order ed By: Geoff Dallas on 06-05-2025 Mucus Ql (Urine sed) 0 SEEN /hpf [facility] Neutrophil percentageOrdered By: Geoff Dallas on 06-05-2025 Neutrophils/100 WBC (Bld) 63.3 % 47-70 [facility] Nitrite Test strip Ql (U)Ord ered By: Geoff Dallas on 06-05-2025 Nitrite Ql (U) Negative Negative [facility] Nucleated red blood cell per centageOrdered By: Geoff Dallas on 06-05-2025 Nucleated RBC/100 WBC (Bld) [Ratio] 0 % 0-5 [facility] Oncology Visit Reporton 05-18 Oncology Visit Report Normal [facility] Platelet countOrdered By: Dian Dallas on 06-05-2025 Platelets (Bld) [#/Vol] 168 10*3/uL 150-450 [facility] Potassium measurement (mass/ volume)Ordered By: Geoff Dallas on 06-05-2025 Potassium (Unsp spec) [Mass/Vol] 4.0 mmol/L 3.3-5.1 [facility] Comment on above: Hemolysis present, R esults could be affected. Protein Test strip Ql (U)Ord ered By: Geoff Dallas on 06-05-2025 Protein Ql (U) Negative Negative [facility] RBC Auto (Bld) [#/Vol]Ordere d By: Geoff Dallas on 06-05-2025 RBC (Bld) [#/Vol] 4.19 10*6/uL Low 4.6-6.2 [facility] Serum creatinine measurement (mass/volume)Ordered By: Geoff Dallas on 06-05-2025 Creatinine [Mass/Vol] 1.10 mg/dL 0.70-1.20 [facility] Serum globulin measurementOr dered By: Geoff Dallas on 06-05-2025 Globulin (S) [Mass/Vol] 2.6 g/dL 2.2-4.2 [facility] Serum glucose measurement (m ass/volume)Ordered By: Geoff Dallas on 06-05-2025 Glucose [Mass/Vol] 86 mg/dL 70-99 [facility] Serum or plasma alanine hale otransferase (ALT) measurementOrdered By: Geoff Dallas on 06-05-2025 ALT [Catalytic activity/Vol] 46 U/L <47 [facility] Comment on above: Hemolysis present, R esults could be affected. Serum or plasma albumin marion urement (mass/volume)Ordered By: Geoff Dallas on 06-05-2025 Albumin [Mass/Vol] 3.4 g/dL Low 3.5-5.0 [facility] Serum or plasma albumin/glob ulin mass ratioOrdered By: Geoff Dallas on 06-05-2025 Albumin/Globulin [Mass ratio] 1.3 {ratio} 0.9-2.4 [facility] Serum or plasma alkaline jessica sphatase measurementOrdered By: Geoff Dallas on 06-05-2025 ALP [Catalytic activity/Vol] 49 U/L 40-129 [facility] Serum or plasma calcium marion urement (mass/volume)Ordered By: Goeff Dallas on 06-05-2025 Calcium [Mass/Vol] 9.1 mg/dL 7.6-11.0 [facility] Serum or plasma urea nitroge n measurement (mass/volume)Ordered By: Geoff Dallas on 06-05-2025 Urea nitrogen [Mass/Vol] 17 mg/dL 4-19 [facility] Sodium levelOrdered By: Minh Dallas on 06-05-2025 Sodium [Moles/Vol] 144 mmol/L 133-145 [facility] Squamous epithelial cells de tection in urine sediment by light microscopyOrdered By: Geoff Dallas on 06-05-2025 Epithelial cells.squamous LM Ql (Urine sed) 0 SEEN /hpf 0-5 [facility] Total proteinOrdered By: Miguel Dallas on 06-05-2025 Protein [Mass/Vol] 6.1 g/dL 5.9-8.4 [facility] Urinalysis, Completeon 06-05 BACTERIA 0 SEEN Normal None Seen [facility] Comment on above: Order Comment: JOSE CTOR TO SPECIFY Performed By: #### L 400.0001 ####[facility] [address] [place], [place], [id number] EPI,SQUAMOUS 0 SEEN Normal 0-5 [facility] Comment on above: Order Comment: JOSE CTOR TO SPECIFY Performed By: #### L 400.0001 ####[facility] [address] [place], [address] Mucus Ql (Urine sed) 0 SEEN Normal [facility] Comment on above: Order Comment: JOSE CTOR TO SPECIFY Performed By: #### L 400.0001 ####[facility] [address] [facility] [facility] [place], [address] RBC 0 SEEN Normal 0-5 [facility] Comment on above: Order Comment: JOSE CTOR TO SPECIFY Performed By: #### L 400.0001 ####[facility] [address] [place], [place], [address] WBC 0 SEEN Normal 0-5 [facility] Comment on above: Order Comment: COLLE CTOR TO SPECIFY Performed By: #### L 400.0001 ####[facility] [address] [place], [place], [address] Urine clarityOrdered By: Miguel Dallas on 06-05-2025 Clarity (U) Clear Clear [facility] Urine color determinationOrd ered By: Geoff Dallas on 06-05-2025 Color (U) Yellow Yellow [facility] Urine glucose detectionOrder ed By: Geoff Dallas on 06-05-2025 Glucose Ql (U) Normal mg/dl Normal [facility] Urine leukocyte esterase det ection by dipstickOrdered By: Geoff Dallas on 06-05-2025 Leukocyte esterase Test strip Ql (U) Negative Negative [facility] Urine pHOrdered By: Geoff acuña on 06-05-2025 pH (U) 6.0 [pH] 5.0 - 8.0 [facility] Urine sediment bacteria coun t by microscopy (number/high power field)Ordered By: Geoff Dallas on 06-05-2025 Bacteria LM.HPF (Urine sed) [#/Area] 0 /[HPF] None Seen [facility] Urine specific gravity measu rementOrdered By: Geoff Dallas on 06-05-2025 Specific gravity (U) [Rel density] 1.020 1.002-1.03 0 [facility] Urine urobilinogen measureme ntOrdered By: Geoff Dallas on 06-05-2025 Urobilinogen Ql (U) Normal mg/dl Normal [facility] White blood cell (WBC) count Ordered By: Geoff Dallas on 06-05-2025 WBC (Bld) [#/Vol] 5.8 10*3/uL 4.4-11.0 [facility] White blood cell countOrdere d By: Geoff Dallas on 06-05-2025 White blood cell count 0 SEEN /hpf 0-5 [facility] Absolute lymphocyte countOrd ered By: Geoff Dallas on 05-22-2025 Lymphocytes Auto (Unsp spec) [#/Vol] 1.14 10*3/uL 0.83-4.51 [facility] Absolute neutrophil countOrd ered By: Geoff Dallas on 05-22-2025 Neutrophils (Bld) [#/Vol] 3.5 10*3/uL 2.0-7.7 [facility] Anion gap in Serum or Plasma Ordered By: Geoff Dallas on 05-22-2025 Anion gap [Moles/Vol] 12 mmol/L 5-15 [facility] Automated lymphocyte count a s percentage of total leukocytesOrdered By: Geoff Dallas on 05-22-2025 Lymphocytes/100 WBC Auto (Unsp spec) 21.6 % 19- [facility] BUN/creatinine ratioOrdered By: Geoff Dallas on 05-22-2025 Urea nitrogen/Creatinine [Mass ratio] 21.6 mg/mg High 10- [facility] Basophil percentageOrdered B y: Geoff Dallas on 05-22-2025 Basophils/100 WBC (Bld) 0.6 % 0-1 [facility] Bilirubin Test strip Ql (U)O rdered By: Geoff Dallas on 05-22-2025 Bilirubin Ql (U) Negative Negative [facility] Bilirubin, totalOrdered By: Geoff Dallas on 05-22-2025 Bilirubin [Mass/Vol] 0.23 mg/dL 0.00-1.30 [facility] CBC W/Diff, Automatedon Absolute Lymph 1.14 X10 3/uL Normal 0.83-4.51 [facility] Comment on above: Performed By: #### L 100.0100, L500.4050 ####[facility] [address] [place], [address] Absolute Neut 3.5 X10 3/uL Normal 2.0-7.7 [facility] Comment on above: Performed By: #### L 100.0100, L500.4050 ####[facility] [address] [place], [address] Basophils/100 WBC (Bld) 0.6 % Normal 0-1 [facility] Comment on above: Performed By: #### L 100.0100, L500.4050 ####[facility] [address] [place], [address] Eosinophils/100 WBC (Bld) 0.8 % Normal 0-5 [facility] Comment on above: Performed By: #### L 100.0100, L500.4050 ####[facility] [address] [place], [address] Erythrocyte distribution width (RBC) [Ratio] 14.6 % Normal 11.6-14.6 [facility] Comment on above: Performed By: #### L 100.0100, L500.4050 ####[facility] [address] [place], [address] Hematocrit (Bld) [Volume fraction] 43.0 % Normal 40-54 [facility] Comment on above: Performed By: #### L 100.0100, L500.4050 ####[facility] [address] [place], [address] Hemoglobin (Bld) [Mass/Vol] 14.9 g/dL Normal 13.0-16.5 [facility] Comment on above: Performed By: #### L 100.0100, L500.4050 ####[facility] [address] [place], [address] IG% 0.800 Normal 0.0-0.9 [facility] Comment on above: Result Comment: IG% - Immature Granulocytes (promyelocytes, myelocytes andmetamyelocytes) > 1% indicates that a LEFT SHIFT is Present. Performed By: #### L 100.0100, L500.4050 ####[facility] [address] [place], [address] Lymphocytes/100 WBC (Bld) 21.6 % Normal 19-41 [facility] Comment on above: Performed By: #### L 100.0100, L500.4050 ####[facility] [address] [place], [address] MCH (RBC) [Entitic mass] 34.1 pg High 27.0-32.0 [facility] Comment on above: Performed By: #### L 100.0100, L500.4050 ####[facility] [address] [place], [address] MCHC (RBC) [Mass/Vol] 34.7 g/dL Normal 32-36 [facility] Comment on above: Performed By: #### L 100.0100, L500.4050 ####[facility] [address] [place], [address] MCV (RBC) [Entitic vol] 98.4 fL High 80-94 [facility] Comment on above: Performed By: #### L 100.0100, L500.4050 ####[facility] [address] [place], [address] Monocytes/100 WBC (Bld) 9.3 % Normal 0-10 [facility] Comment on above: Performed By: #### L 100.0100, L500.4050 ####[facility] [address] [place], [address] Neutrophils/100 WBC (Bld) 66.9 % Normal 47-70 [facility] Comment on above: Performed By: #### L 100.0100, L500.4050 ####[facility] [address] [place], [address] Nucleated RBC (Bld) [#/Vol] 0 10*3/uL Normal 0-5 [facility] Comment on above: Performed By: #### L 100.0100, L500.4050 ####[facility] [address] [place], [address] Platelet mean volume (Bld) [Entitic vol] 9.4 fL Normal 6.2-12.0 [facility] Comment on above: Performed By: #### L 100.0100, L500.4050 ####[facility] [address] [place], [address] Platelets (Bld) [#/Vol] 188 10*3/uL Normal 150-450 [facility] Comment on above: Performed By: #### L 100.0100, L500.4050 ####[facility] [address] [place], [address] RBC (Bld) [#/Vol] 4.37 10*6/uL Low 4.6-6.2 [facility] Comment on above: Performed By: #### L 100.0100, L500.4050 ####[facility] [address] [place], [address] RDW SD 53.2 fl High 35.1-43.9 [facility] Comment on above: Performed By: #### L 100.0100, L500.4050 ####[facility] [address] [place], [address] WBC (Bld) [#/Vol] 5.3 10*3/uL Normal 4.4-11.0 [facility] Comment on above: Performed By: #### L 100.0100, L500.4050 ####[facility] [address] [place], [address] Carbon dioxide, total [Moles /volume] in Central venous bloodOrdered By: Geoff Dallas on 05-22-2025 CO2 [Moles/Vol] 23.1 mmol/L 21.0-32.0 [facility] Chloride assayOrdered By: Dian Dallas on 05-22-2025 Chloride [Moles/Vol] 107 mmol/L 98-108 [facility] Comprehensive Metabolic Prof ilon 05-22-2025 Albumin [Mass/Vol] 3.8 g/dL Normal 3.5-5.0 [facility] Comment on above: Performed By: #### L 100.0100, L500.4050 ####[facility] [address] [place], [address] Albumin/Globulin [Mass ratio] 1.5 {ratio} Normal 0.9-2.4 [facility] Comment on above: Performed By: #### L 100.0100, L500.4050 ####[facility] [address] [place], [address] ALK PHOS 55 U/L Normal 40-129 [facility] Comment on above: Performed By: #### L 100.0100, L500.4050 ####[facility] [address] [place], [address] ALT [Catalytic activity/Vol] 33 U/L Normal <=46 [facility] Comment on above: Performed By: #### L 100.0100, L500.4050 ####[facility] [address] [place], [address] AST [Catalytic activity/Vol] 21 U/L Normal <=37 [facility] Comment on above: Performed By: #### L 100.0100, L500.4050 ####[facility] [address] [place], [address] Bilirubin [Mass/Vol] 0.23 mg/dL Normal 0.00-1.30 [facility] Comment on above: Performed By: #### L 100.0100, L500.4050 ####[facility] [address] [place], [address] BUN/CRE 21.6 RATIO High 10-20 [facility] Comment on above: Performed By: #### L 100.0100, L500.4050 ####[facility] [address] [place], [address] Calcium [Mass/Vol] 9.1 mg/dL Normal 7.6-11.0 [facility] Comment on above: Performed By: #### L 100.0100, L500.4050 ####[facility] [address] [place], [address] Chloride [Moles/Vol] 107 mmol/L Normal 98-108 [facility] Comment on above: Performed By: #### L 100.0100, L500.4050 ####[facility] [address] [place], [address] CO2 [Moles/Vol] 23.1 mmol/L Normal 21.0-32.0 [facility] Comment on above: Performed By: #### L 100.0100, L500.4050 ####[facility] [address] [place], [address] Creatinine [Mass/Vol] 0.95 mg/dL Normal 0.70-1.20 [facility] Comment on above: Performed By: #### L 100.0100, L500.4050 ####[facility] [address] [place], [address] ECRCL 125.51 ml/min Normal 50-250 [facility] Comment on above: Performed By: #### L 100.0100, L500.4050 ####[facility] [address] [place], [address] GAP 12 Normal 5-15 [facility] Comment on above: Performed By: #### L 100.0100, L500.4050 ####[facility] [address] [place], [address] GFR/1.73 sq M.predicted among non-blacks MDRD (S/P/Bld) [Vol rate/Area] 98 mL/min/{1.73_m2} Normal >60 [place] Comment on above: Result Comment: mL/m in/1.73m2 CKD-EPI Creatinine Equation (2020) Performed By: #### L 100.0100, L500.4050 ####[facility] [address] [place], [address] Globulin (S) [Mass/Vol] 2.6 g/dL Normal 2.2-4.2 [facility] Comment on above: Performed By: #### L 100.0100, L500.4050 ####[facility] [address] [place], [address] Glucose [Mass/Vol] 127 mg/dL High 70-99 [facility] Comment on above: Performed By: #### L 100.0100, L500.4050 ####[facility] [address] [place], [address] Potassium [Moles/Vol] 3.6 mmol/L Normal 3.3-5.1 [facility] Comment on above: Performed By: #### L 100.0100, L500.4050 ####[facility] [address] [place], [address] Sodium [Moles/Vol] 143 mmol/L Normal 133-145 [facility] Comment on above: Performed By: #### L 100.0100, L500.4050 ####[facility] [address] [place], [address] T PROT 6.5 g/dL Normal 5.9-8.4 [facility] Comment on above: Performed By: #### L 100.0100, L500.4050 ####[facility] [address] [place], [address] Urea nitrogen [Mass/Vol] 20 mg/dL High 4-19 [facility] Comment on above: Performed By: #### L 100.0100, L500.4050 ####[facility] [address] [place], [address] Eosinophil percentageOrdered By: Geoff Dallas on 05-22-2025 Eosinophils/100 WBC (Bld) 0.8 % 0-5 [facility] Erythrocyte distribution wid th ratioOrdered By: Geoff Dallas on 05-22-2025 Erythrocyte distribution width (RBC) [Ratio] 14.6 % 11.6-14.6 [facility] Erythrocyte distribution wid th standard deviationOrdered By: Geoff Dallas on 05-22-2025 Erythrocyte distribution width (RBC) [Ratio] 53.2 fl High 35.1-43.9 [facility] Glomerular filtration rate ( GFR) estimation/1.73 sq m using serum, plasma, or whole bOrdered By: Geoff Dallas on 05-22-2025 GFR/1.73 sq M.predicted among non-blacks MDRD (S/P/Bld) [Vol rate/Area] 98 mL/min/{1.73_m2} >60 [place] Comment on above: mL/min/1.73m2 CKD-EP I Creatinine Equation (2020) Hematocrit Auto (Bld) [Volum e fraction]Ordered By: Geoff Dallas on 05-22-2025 Hematocrit (Bld) [Volume fraction] 43.0 % 40-54 [facility] Hemoglobin measurementOrdere d By: Geoff Dallas on 05-22-2025 Hemoglobin (Bld) [Mass/Vol] 14.9 g/dL 13.0-16.5 [facility] Immature granulocytes/100 WB C Auto (Bld)Ordered By: Geoff Dallas on 05-22-2025 Immature granulocytes/100 WBC (Bld) 0.800 % 0.0-0.9 [facility] Comment on above: IG% - Immature Granu locytes (promyelocytes, myelocytes and metamyelocytes) > 1% indicates that a LEFT SHIFT is Present. Ketones Test strip Ql (U)Ord ered By: Geoff Dallas on 05-22-2025 Ketones Ql (U) Negative Negative [facility] Laboratory - Chemistry and C hemistry - challengeOrdered By: Geoff Dallas on 05-22-2025 AST [Catalytic activity/Vol] 21 U/L <38 [facility] MCV (mean corpuscular volume ) determinationOrdered By: Geoff Dallas on 05-22-2025 MCV (RBC) [Entitic vol] 98.4 fL High 80-94 [facility] Mean corpuscular hemoglobin (MCH) determinationOrdered By: Geoff Dallas on 05-22-2025 MCH (RBC) [Entitic mass] 34.1 pg High 27.0-32.0 [facility] Mean corpuscular hemoglobin concentration (MCHC) determinationOrdered By: Geoff Dallas on 05-22-2025 MCHC (RBC) [Mass/Vol] 34.7 g/dL 32-36 [facility] Mean platelet volume determi nationOrdered By: Geoff Dallas on 05-22-2025 Platelet mean volume (Bld) [Entitic vol] 9.4 fL 6.2-12.0 [facility] Microscopic analysis of urin e for red blood cells (RBC)Ordered By: Geoff Dallas on 05-22-2025 Microscopic analysis of urine for red blood cells (RBC) 0 SEEN /hpf 0-5 [facility] Monocyte percentageOrdered B y: Geoff Dallas on 05-22-2025 Monocytes/100 WBC (Bld) 9.3 % 0-10 [facility] Mucus LM Ql (Urine sed)Order ed By: Geoff Dallas on 05-22-2025 Mucus Ql (Urine sed) 1+ /hpf [facility] Neutrophil percentageOrdered By: Geoff Dallas on 05-22-2025 Neutrophils/100 WBC (Bld) 66.9 % 47-70 [facility] Nitrite Test strip Ql (U)Ord ered By: Geoff Dallas on 05-22-2025 Nitrite Ql (U) Negative Negative [facility] Nucleated red blood cell per centageOrdered By: Geoff Dallas on 05-22-2025 Nucleated RBC/100 WBC (Bld) [Ratio] 0 % 0-5 [facility] Oncology Visit Reporton 08-0 Oncology Visit Report Normal [facility] Platelet countOrdered By: Dian Dallas on 05-22-2025 Platelets (Bld) [#/Vol] 188 10*3/uL 150-450 [facility] Potassium measurement (mass/ volume)Ordered By: Geoff Dallas on 05-22-2025 Potassium (Unsp spec) [Mass/Vol] 3.6 mmol/L 3.3-5.1 [facility] Protein Test strip Ql (U)Ord ered By: Geoff Dallas on 05-22-2025 Protein Ql (U) 15 mg/dl High Negative [facility] RBC Auto (Bld) [#/Vol]Ordere d By: eGoff Dallas on 05-22-2025 RBC (Bld) [#/Vol] 4.37 10*6/uL Low 4.6-6.2 [facility] Serum creatinine measurement (mass/volume)Ordered By: Geoff Dallas on 05-22-2025 Creatinine [Mass/Vol] 0.95 mg/dL 0.70-1.20 [facility] Serum globulin measurementOr dered By: Geoff Dallas on 05-22-2025 Globulin (S) [Mass/Vol] 2.6 g/dL 2.2-4.2 [facility] Serum glucose measurement (m ass/volume)Ordered By: Geoff Dallas on 05-22-2025 Glucose [Mass/Vol] 127 mg/dL High 70-99 [facility] Serum or plasma alanine hale otransferase (ALT) measurementOrdered By: Geoff Dallas on 05-22-2025 ALT [Catalytic activity/Vol] 33 U/L <47 [facility] Serum or plasma albumin marion urement (mass/volume)Ordered By: Geoff Dallas on 05-22-2025 Albumin [Mass/Vol] 3.8 g/dL 3.5-5.0 [facility] Serum or plasma albumin/glob ulin mass ratioOrdered By: Geoff Dallas on 05-22-2025 Albumin/Globulin [Mass ratio] 1.5 {ratio} 0.9-2.4 [facility] Serum or plasma alkaline jessica sphatase measurementOrdered By: Geoff Dallas on 05-22-2025 ALP [Catalytic activity/Vol] 55 U/L 40-129 [facility] Serum or plasma calcium marion urement (mass/volume)Ordered By: Geoff Dallas on 05-22-2025 Calcium [Mass/Vol] 9.1 mg/dL 7.6-11.0 [facility] Serum or plasma urea nitroge n measurement (mass/volume)Ordered By: Geoff Dallas on 05-22-2025 Urea nitrogen [Mass/Vol] 20 mg/dL High 4-19 [facility] Sodium levelOrdered By: Minh Dallas on 05-22-2025 Sodium [Moles/Vol] 143 mmol/L 133-145 [facility] Squamous epithelial cells de tection in urine sediment by light microscopyOrdered By: Geoff Dallas on 05-22-2025 Epithelial cells.squamous LM Ql (Urine sed) 0-5 SEEN /hpf 0-5 [facility] Total proteinOrdered By: Miguel Dallas on 05-22-2025 Protein [Mass/Vol] 6.5 g/dL 5.9-8.4 [facility] Urinalysis, Completeon 05-22 BACTERIA RARE Normal None Seen [facility] Comment on above: Order Comment: CLEAN CATCH Performed By: #### L 400.0001 ####[facility] [address] [place], [address] EPI,SQUAMOUS 0-5 SEEN Normal 0-5 [facility] Comment on above: Order Comment: CLEAN CATCH Performed By: #### L 400.0001 ####[facility] [address] [place], [address] Mucus Ql (Urine sed) 1+ /hpf Normal [facility] Comment on above: Order Comment: CLEAN CATCH Performed By: #### L 400.0001 ####[facility] [address] [place], [address] WBC 0-5 SEEN Normal 0-5 [facility] Comment on above: Order Comment: CLEAN CATCH Performed By: #### L 400.0001 ####[facility] [address] [place], [address] RBC 0 SEEN Normal 0-5 [facility] Comment on above: Order Comment: CLEAN CATCH Performed By: #### L 400.0001 ####[facility] [address] [place], [address] Urine clarityOrdered By: Miguel Dallas on 05-22-2025 Clarity (U) Clear Clear [facility] Urine color determinationOrd ered By: Geoff Dallas on 05-22-2025 Color (U) Yellow Yellow [facility] Urine glucose detectionOrder ed By: Geoff Dallas on 05-22-2025 Glucose Ql (U) Normal mg/dl Normal [facility] Urine leukocyte esterase det ection by dipstickOrdered By: Geoff Dallas on 05-22-2025 Leukocyte esterase Test strip Ql (U) Negative Negative [facility] Urine pHOrdered By: Geoff acuña on 05-22-2025 pH (U) 5.0 [pH] 5.0 - 8.0 [facility] Urine sediment bacteria coun t by microscopy (number/high power field)Ordered By: Geoff Dallas on 05-22-2025 Bacteria LM.HPF (Urine sed) [#/Area] RARE /hpf None Seen [facility] Urine specific gravity measu rementOrdered By: Geoff Dallas on 05-22-2025 Specific gravity (U) [Rel density] 1.025 1.002-1.03 0 [facility] Urine urobilinogen measureme ntOrdered By: Geoff Dallas on 05-22-2025 Urobilinogen Ql (U) Normal mg/dl Normal [facility] White blood cell (WBC) count Ordered By: Geoff Dallas on 05-22-2025 WBC (Bld) [#/Vol] 5.3 10*3/uL 4.4-11.0 [facility] White blood cell countOrdere d By: Geoff Dallas on 05-22-2025 White blood cell count 0-5 SEEN /hpf 0-5 [facility] Absolute lymphocyte countOrd ered By: Geoff Dallas on 05-08-2025 Lymphocytes Auto (Unsp spec) [#/Vol] 1.24 10*3/uL 0.83-4.51 [facility] Absolute neutrophil countOrd ered By: Geoff Dallas on 05-08-2025 Neutrophils (Bld) [#/Vol] 6.5 10*3/uL 2.0-7.7 [facility] Anion gap in Serum or Plasma Ordered By: Geoff Dallas on 05-08-2025 Anion gap [Moles/Vol] 12 mmol/L 5-15 [facility] Automated lymphocyte count a s percentage of total leukocytesOrdered By: Geoff Dallas on 05-08-2025 Lymphocytes/100 WBC Auto (Unsp spec) 14.6 % Low 19-41 [facility] BUN/creatinine ratioOrdered By: Geoff Dallas on 05-08-2025 Urea nitrogen/Creatinine [Mass ratio] 18.9 mg/mg 10-20 [facility] Basophil percentageOrdered B y: Geoff Dallas on 05-08-2025 Basophils/100 WBC (Bld) 0.2 % 0-1 [facility] Bilirubin Test strip Ql (U)O rdered By: Geoff Dallas on 05-08-2025 Bilirubin Ql (U) Negative Negative [facility] Bilirubin, totalOrdered By: Geoff Dallas on 05-08-2025 Bilirubin [Mass/Vol] 0.30 mg/dL 0.00-1.30 [facility] CBC W/Diff, Automatedon 04-17 Absolute Lymph 1.24 X10 3/uL Normal 0.83-4.51 [facility] Comment on above: Performed By: #### L 100.0100, L500.4050, L400.0001 ####[facility] [address] [place], [address] Absolute Neut 6.5 X10 3/uL Normal 2.0-7.7 [facility] Comment on above: Performed By: #### L 100.0100, L500.4050, L400.0001 ####[facility] [address] [place], [address] Basophils/100 WBC (Bld) 0.2 % Normal 0-1 [facility] Comment on above: Performed By: #### L 100.0100, L500.4050, L400.0001 ####[facility] [address] [place], [address] Eosinophils/100 WBC (Bld) 0.5 % Normal 0-5 [facility] Comment on above: Performed By: #### L 100.0100, L500.4050, L400.0001 ####[facility] [address] [place], [address] Erythrocyte distribution width (RBC) [Ratio] 15.4 % High 11.6-14.6 [facility] Comment on above: Performed By: #### L 100.0100, L500.4050, L400.0001 ####[facility] [address] [place], [address] Hematocrit (Bld) [Volume fraction] 45.2 % Normal 40-54 [facility] Comment on above: Performed By: #### L 100.0100, L500.4050, L400.0001 ####[facility] [address] [place], [address] Hemoglobin (Bld) [Mass/Vol] 15.2 g/dL Normal 13.0-16.5 [facility] Comment on above: Performed By: #### L 100.0100, L500.4050, L400.0001 ####[facility] [address] [place], [address] IG% 1.200 High 0.0-0.9 [facility] Comment on above: Result Comment: IG% - Immature Granulocytes (promyelocytes, myelocytes andmetamyelocytes) > 1% indicates that a LEFT SHIFT is Present. Performed By: #### L 100.0100, L500.4050, L400.0001 ####[facility] [address] [place], [address] Lymphocytes/100 WBC (Bld) 14.6 % Low 19-41 [facility] Comment on above: Performed By: #### L 100.0100, L500.4050, L400.0001 ####[facility] [address] [place], [address] MCH (RBC) [Entitic mass] 33.5 pg High 27.0-32.0 [facility] Comment on above: Performed By: #### L 100.0100, L500.4050, L400.0001 ####[facility] [address] [place], [address] MCHC (RBC) [Mass/Vol] 33.6 g/dL Normal 32-36 [facility] Comment on above: Performed By: #### L 100.0100, L500.4050, L400.0001 ####[facility] [address] [place], [address] MCV (RBC) [Entitic vol] 99.6 fL High 80-94 [facility] Comment on above: Performed By: #### L 100.0100, L500.4050, L400.0001 ####[facility] [address] [place], [address] Monocytes/100 WBC (Bld) 7.4 % Normal 0-10 [facility] Comment on above: Performed By: #### L 100.0100, L500.4050, L400.0001 ####[facility] [address] [place], [address] Neutrophils/100 WBC (Bld) 76.1 % High 47-70 [facility] Comment on above: Performed By: #### L 100.0100, L500.4050, L400.0001 ####[facility] [address] [place], [address] Nucleated RBC (Bld) [#/Vol] 0 10*3/uL Normal 0-5 [facility] Comment on above: Performed By: #### L 100.0100, L500.4050, L400.0001 ####[facility] [address] [place], [address] Platelet mean volume (Bld) [Entitic vol] 10.4 fL Normal 6.2-12.0 [facility] Comment on above: Performed By: #### L 100.0100, L500.4050, L400.0001 ####[facility] [address] [place], [address] Platelets (Bld) [#/Vol] 160 10*3/uL Normal 150-450 [facility] Comment on above: Performed By: #### L 100.0100, L500.4050, L400.0001 ####[facility] [address] [place], [address] RBC (Bld) [#/Vol] 4.54 10*6/uL Low 4.6-6.2 [facility] Comment on above: Performed By: #### L 100.0100, L500.4050, L400.0001 ####[facility] [address] [place], [address] RDW SD 57.1 fl High 35.1-43.9 [facility] Comment on above: Performed By: #### L 100.0100, L500.4050, L400.0001 ####[facility] [address] [place], [address] WBC (Bld) [#/Vol] 8.5 10*3/uL Normal 4.4-11.0 [facility] Comment on above: Performed By: #### L 100.0100, L500.4050, L400.0001 ####[facility] [address] [place], [address] Carbon dioxide, total [Moles /volume] in Central venous bloodOrdered By: Geoff Dallas on 05-08-2025 CO2 [Moles/Vol] 22.8 mmol/L 21.0-32.0 [facility] Chloride assayOrdered By: Dian Dallas on 05-08-2025 Chloride [Moles/Vol] 105 mmol/L 98-108 [facility] Comprehensive Metabolic Prof ilon 05-08-2025 Albumin [Mass/Vol] 3.7 g/dL Normal 3.5-5.0 [facility] Comment on above: Performed By: #### L 100.0100, L500.4050, L400.0001 ####[facility] [address] [place], [address] Albumin/Globulin [Mass ratio] 1.4 {ratio} Normal 0.9-2.4 [facility] Comment on above: Performed By: #### L 100.0100, L500.4050, L400.0001 ####[facility] [address] [place], [address] ALK PHOS 48 U/L Normal 40-129 [facility] Comment on above: Performed By: #### L 100.0100, L500.4050, L400.0001 ####[facility] [address] [place], [address] ALT [Catalytic activity/Vol] 27 U/L Normal <=46 [facility] Comment on above: Performed By: #### L 100.0100, L500.4050, L400.0001 ####[facility] [address] [place], [address] AST [Catalytic activity/Vol] 16 U/L Normal <=37 [facility] Comment on above: Performed By: #### L 100.0100, L500.4050, L400.0001 ####[facility] [address] [place], [address] Bilirubin [Mass/Vol] 0.30 mg/dL Normal 0.00-1.30 [facility] Comment on above: Performed By: #### L 100.0100, L500.4050, L400.0001 ####[facility] [address] [place], [address] BUN/CRE 18.9 RATIO Normal 10-20 [facility] Comment on above: Performed By: #### L 100.0100, L500.4050, L400.0001 ####[facility] [address] [place], [address] Calcium [Mass/Vol] 9.0 mg/dL Normal 7.6-11.0 [facility] Comment on above: Performed By: #### L 100.0100, L500.4050, L400.0001 ####[facility] [address] [place], [address] Chloride [Moles/Vol] 105 mmol/L Normal 98-108 [facility] Comment on above: Performed By: #### L 100.0100, L500.4050, L400.0001 ####[facility] [address] [place], [address] CO2 [Moles/Vol] 22.8 mmol/L Normal 21.0-32.0 [facility] Comment on above: Performed By: #### L 100.0100, L500.4050, L400.0001 ####[facility] [address] [place], [address] Creatinine [Mass/Vol] 1.02 mg/dL Normal 0.70-1.20 [facility] Comment on above: Performed By: #### L 100.0100, L500.4050, L400.0001 ####[facility] [address] [place], [address] ECRCL 116.89 ml/min Normal 50-250 [facility] Comment on above: Performed By: #### L 100.0100, L500.4050, L400.0001 ####[facility] [address] [place], [address] GAP 12 Normal 5-15 [facility] Comment on above: Performed By: #### L 100.0100, L500.4050, L400.0001 ####[facility] [address] [place], [address] GFR/1.73 sq M.predicted among non-blacks MDRD (S/P/Bld) [Vol rate/Area] 90 mL/min/{1.73_m2} Normal >60 [place] Comment on above: Result Comment: mL/m in/1.73m2 CKD-EPI Creatinine Equation (2020) Performed By: #### L 100.0100, L500.4050, L400.0001 ####[facility] [address] [place], [address] Globulin (S) [Mass/Vol] 2.7 g/dL Normal 2.2-4.2 [facility] Comment on above: Performed By: #### L 100.0100, L500.4050, L400.0001 ####[facility] [address] [place], [address] Glucose [Mass/Vol] 118 mg/dL High 70-99 [facility] Comment on above: Performed By: #### L 100.0100, L500.4050, L400.0001 ####[facility] [address] [place], [address] Potassium [Moles/Vol] 3.4 mmol/L Normal 3.3-5.1 [facility] Comment on above: Performed By: #### L 100.0100, L500.4050, L400.0001 ####[facility] [address] [place], [address] Sodium [Moles/Vol] 140 mmol/L Normal 133-145 [facility] Comment on above: Performed By: #### L 100.0100, L500.4050, L400.0001 ####[facility] [address] [place], [address] T PROT 6.3 g/dL Normal 5.9-8.4 [facility] Comment on above: Performed By: #### L 100.0100, L500.4050, L400.0001 ####[facility] [address] [place], [address] Urea nitrogen [Mass/Vol] 19 mg/dL Normal 4-19 [facility] Comment on above: Performed By: #### L 100.0100, L500.4050, L400.0001 ####[facility] [address] [place], [address] Eosinophil percentageOrdered By: Geoff Dallas on 05-08-2025 Eosinophils/100 WBC (Bld) 0.5 % 0-5 [facility] Erythrocyte distribution wid th ratioOrdered By: Geoff Dallas on 05-08-2025 Erythrocyte distribution width (RBC) [Ratio] 15.4 % High 11.6-14.6 [facility] Erythrocyte distribution wid th standard deviationOrdered By: Geoff [facility] on 05-08-2025 Erythrocyte distribution width (RBC) [Ratio] 57.1 fl High 35.1-43.9 [facility] Glomerular filtration rate ( GFR) estimation/1.73 sq m using serum, plasma, or whole bOrdered By: Geoff Dallas on 05-08-2025 GFR/1.73 sq M.predicted among non-blacks MDRD (S/P/Bld) [Vol rate/Area] 90 mL/min/{1.73_m2} >60 [place] Comment on above: mL/min/1.73m2 CKD-EP I Creatinine Equation (2020) Hematocrit Auto (Bld) [Volum e fraction]Ordered By: Geoff Dallas on 05-08-2025 Hematocrit (Bld) [Volume fraction] 45.2 % 40-54 [facility] Hemoglobin measurementOrdere d By: Geoff Dallas on 05-08-2025 Hemoglobin (Bld) [Mass/Vol] 15.2 g/dL 13.0-16.5 [facility] Immature granulocytes/100 WB C Auto (Bld)Ordered By: Geoff Dallas on 05-08-2025 Immature granulocytes/100 WBC (Bld) 1.200 % High 0.0-0.9 [facility] Comment on above: IG% - Immature Granu locytes (promyelocytes, myelocytes and metamyelocytes) > 1% indicates that a LEFT SHIFT is Present. Ketones Test strip Ql (U)Ord ered By: Geoff Dallas on 05-08-2025 Ketones Ql (U) Negative Negative [facility] Laboratory - Chemistry and C hemistry - challengeOrdered By: Geoff Dallas on 05-08-2025 AST [Catalytic activity/Vol] 16 U/L <38 [facility] MCV (mean corpuscular volume ) determinationOrdered By: Geoff Dallas on 05-08-2025 MCV (RBC) [Entitic vol] 99.6 fL High 80-94 [facility] Mean corpuscular hemoglobin (MCH) determinationOrdered By: Geoff Dallas on 05-08-2025 MCH (RBC) [Entitic mass] 33.5 pg High 27.0-32.0 [facility] Mean corpuscular hemoglobin concentration (MCHC) determinationOrdered By: Geoff Dallas on 05-08-2025 MCHC (RBC) [Mass/Vol] 33.6 g/dL 32-36 [facility] Mean platelet volume determi nationOrdered By: Geoff Dallas on 05-08-2025 Platelet mean volume (Bld) [Entitic vol] 10.4 fL 6.2-12.0 [facility] Microscopic analysis of urin e for red blood cells (RBC)Ordered By: Geoff Dallas on 05-08-2025 Microscopic analysis of urine for red blood cells (RBC) 0 SEEN /hpf 0-5 [facility] Monocyte percentageOrdered B y: Geoff Dallas on 05-08-2025 Monocytes/100 WBC (Bld) 7.4 % 0-10 [facility] Mucus LM Ql (Urine sed)Order ed By: Geoff Dallas on 05-08-2025 Mucus Ql (Urine sed) 0 SEEN /hpf [facility] Neutrophil percentageOrdered By: Geoff Dallas on 05-08-2025 Neutrophils/100 WBC (Bld) 76.1 % High 47-70 [facility] Nitrite Test strip Ql (U)Ord ered By: Geoff Dallas on 05-08-2025 Nitrite Ql (U) Negative Negative [facility] Nucleated red blood cell per centageOrdered By: Geoff Dallas on 05-08-2025 Nucleated RBC/100 WBC (Bld) [Ratio] 0 % 0-5 [facility] Oncology Visit Reporton 04-17 Oncology Visit Report Normal [facility] Platelet countOrdered By: Dian Dallas on 05-08-2025 Platelets (Bld) [#/Vol] 160 10*3/uL 150-450 [facility] Potassium measurement (mass/ volume)Ordered By: Geoff Dallas on 05-08-2025 Potassium (Unsp spec) [Mass/Vol] 3.4 mmol/L 3.3-5.1 [facility] Protein Test strip Ql (U)Ord ered By: Geoff Dallas on 05-08-2025 Protein Ql (U) 15 mg/dl High Negative [facility] RBC Auto (Bld) [#/Vol]Ordere d By: Geoff Dallas on 05-08-2025 RBC (Bld) [#/Vol] 4.54 10*6/uL Low 4.6-6.2 [facility] Serum creatinine measurement (mass/volume)Ordered By: Geoff Dallas on 05-08-2025 Creatinine [Mass/Vol] 1.02 mg/dL 0.70-1.20 [facility] Serum globulin measurementOr dered By: Geoff Dallas on 05-08-2025 Globulin (S) [Mass/Vol] 2.7 g/dL 2.2-4.2 [facility] Serum glucose measurement (m ass/volume)Ordered By: Geoff Dallas on 05-08-2025 Glucose [Mass/Vol] 118 mg/dL High 70-99 [facility] Serum or plasma alanine hale otransferase (ALT) measurementOrdered By: Geoff Dallas on 05-08-2025 ALT [Catalytic activity/Vol] 27 U/L <47 [facility] Serum or plasma albumin marion urement (mass/volume)Ordered By: Geoff Dallas on 05-08-2025 Albumin [Mass/Vol] 3.7 g/dL 3.5-5.0 [facility] Serum or plasma albumin/glob ulin mass ratioOrdered By: Geoff Dallas on 05-08-2025 Albumin/Globulin [Mass ratio] 1.4 {ratio} 0.9-2.4 [facility] Serum or plasma alkaline jessica sphatase measurementOrdered By: Geoff Dallas on 05-08-2025 ALP [Catalytic activity/Vol] 48 U/L 40-129 [facility] Serum or plasma calcium marion urement (mass/volume)Ordered By: Geoff Dallas on 05-08-2025 Calcium [Mass/Vol] 9.0 mg/dL 7.6-11.0 [facility] Serum or plasma urea nitroge n measurement (mass/volume)Ordered By: Geoff Dallas on 05-08-2025 Urea nitrogen [Mass/Vol] 19 mg/dL 4-19 [facility] Sodium levelOrdered By: Minh Dallas on 05-08-2025 Sodium [Moles/Vol] 140 mmol/L 133-145 [facility] Squamous epithelial cells de tection in urine sediment by light microscopyOrdered By: Geoff Dallas on 05-08-2025 Epithelial cells.squamous LM Ql (Urine sed) 0 SEEN /hpf 0-5 [facility] Total proteinOrdered By: Miguel Dallas on 05-08-2025 Protein [Mass/Vol] 6.3 g/dL 5.9-8.4 [facility] Urinalysis, Completeon 05-08 BACTERIA 0 SEEN Normal None Seen [facility] Comment on above: Order Comment: JOSE CTOR TO SPECIFY Performed By: #### L 100.0100, L500.4050, L400.0001 ####[facility] [address] [place], [address] EPI,SQUAMOUS 0 SEEN Normal 0-5 [facility] Comment on above: Order Comment: JOSE CTOR TO SPECIFY Performed By: #### L 100.0100, L500.4050, L400.0001 ####[facility] [address] [place], [address] Mucus Ql (Urine sed) 0 SEEN Normal [facility] Comment on above: Order Comment: JOSE CTOR TO SPECIFY Performed By: #### L 100.0100, L500.4050, L400.0001 ####[facility] [address] [place], [address] RBC 0 SEEN Normal 0-5 [facility] Comment on above: Order Comment: JOSE CTOR TO SPECIFY Performed By: #### L 100.0100, L500.4050, L400.0001 ####[facility] [address] [place], [address] WBC 0 SEEN Normal 0-5 [facility] Comment on above: Order Comment: COLLE CTOR TO SPECIFY Performed By: #### L 100.0100, L500.4050, L400.0001 ####[facility] [address] [place], [address] Urine clarityOrdered By: Miguel Dallas on 05-08-2025 Clarity (U) Clear Clear [facility] Urine color determinationOrd ered By: Geoff Dallas on 05-08-2025 Color (U) Yellow Yellow [facility] Urine glucose detectionOrder ed By: Geoff Dallas on 05-08-2025 Glucose Ql (U) Normal mg/dl Normal [facility] Urine leukocyte esterase det ection by dipstickOrdered By: Geoff Dallas on 05-08-2025 Leukocyte esterase Test strip Ql (U) Negative Negative [facility] Urine pHOrdered By: Geoff acuña on 05-08-2025 pH (U) 6.0 [pH] 5.0 - 8.0 [facility] Urine sediment bacteria coun t by microscopy (number/high power field)Ordered By: Geoff Dallas on 05-08-2025 Bacteria LM.HPF (Urine sed) [#/Area] 0 /[HPF] None Seen [facility] Urine specific gravity measu rementOrdered By: Geoff Dallas on 05-08-2025 Specific gravity (U) [Rel density] 1.025 1.002-1.03 0 [facility] Urine urobilinogen measureme ntOrdered By: Geoff Dallas on 05-08-2025 Urobilinogen Ql (U) Normal mg/dl Normal [facility] Venous Duplex US, Unilateral on 05-08-2025 Venous Duplex US, Unilateral Normal [facility] Venous duplex ultrasound rep ortOrdered By: Trevor Hair on 05-08-2025 US Vein [facility] [address] [place] [address] Venous Duplex US, Unilateral 05/08/25 1018 MR#: [id number] Acct: [id number] Name: JAKELAMINE BENTON Rep #:[id number] : 1975 49 From: Trevor Lyle Attending Dr: Dr. Geoff Dallas MD S tatus: REG CLI Ordering Dr: Geoff Dallas MD Date: Location: [facility] Sex: M C Admitted: Reason For Study Reason For Study: Left leg swelling RIGHT LEFT CFV is compressible, spontaneous, phasic, competent GSV is normal. and demonstrates normal augmentation. CFV is compressible, spontaneous, phasic, competent, Procedure and demonstrates normal augmentation. This is a venous duplex using B-mode, color flow and FV is compressible, spontaneous, phasic, competent spectral Doppler. and demonstrates normal augmentation. Exam performed in department. POP V is compressible, spontaneous, phasic, competent A preliminary report was called and/or faxed to and demonstrates normal augmentation. Carlita RN. T/P Trunk is compressible. PTV is compressible. LT PerV is compressible. VL/Venous Duplex US, Unilateral Interpretation Summary Deep veins of the left lower extremity are patent and compressible segmentally. There is no evidence of left lower extremity deep vein thrombosis. The left great saphenous vein appears patent andcompressible segmentally. Ordering Physician: Geoff Dallas Performed By: Freida Ornelas RVT 05/08/25 1550 Date _ Trevor Hair MD CC: Dr. Geoff Dallas MD; No Primary Care Physician ~ Date Dictated: 05/08/25 1018 Date Transcribed: 05/08/25 1550 Bird Tender: Signed [facility] Work Phone: White blood cell (WBC) count Ordered By: Geoff Dallas on 05-08-2025 WBC (Bld) [#/Vol] 8.5 10*3/uL 4.4-11.0 [facility] White blood cell countOrdere d By: Geoff Dallas on 05-08-2025 White blood cell count 0 SEEN /hpf 0-5 [facility] CXR for Line Placementon CXR for Line Placement Normal [place] Discharge Instructionon 04-17 Discharge Instruction Normal [facility] MR/POSTOP.ANEon 05-07-2025 MR/POSTOP.ANE Normal [facility] MR/WJIFXTOL4hu 05-07-2025 MR/POSTOPAN2 Normal [facility] Operative Reporton Operative Report Normal [facility] Oncology Visit Reporton Oncology Visit Report Normal [facility] Surgery Visit Reporton 04-17 Surgery Visit Report Normal [facility] Absolute lymphocyte countOrd ered By: Vielka Lnae on 04-15-2025 Lymphocytes Auto (Unsp spec) [#/Vol] 0.62 10*3/uL Low 0.83-4.51 [facility] Absolute neutrophil countOrd ered By: Vielka Lane on 04-15-2025 Neutrophils (Bld) [#/Vol] 9.0 10*3/uL High 2.0-7.7 [facility] Anion gap in Serum or Plasma Ordered By: Vielka Lane on 04-15-2025 Anion gap [Moles/Vol] 15 mmol/L 5-15 [facility] Automated lymphocyte count a s percentage of total leukocytesOrdered By: Vielka Lane on 04-15-2025 Lymphocytes/100 WBC Auto (Unsp spec) 6.0 % Low 19-41 [facility] BUN/creatinine ratioOrdered By: Vielka Lane on 04-15-2025 Urea nitrogen/Creatinine [Mass ratio] 16.5 mg/mg 10-20 [facility] Basophil percentageOrdered B y: Vielka Lane on 04-15-2025 Basophils/100 WBC (Bld) 0.3 % 0-1 [facility] Bilirubin, totalOrdered By: Vielka Ariana on 04-15-2025 Bilirubin [Mass/Vol] 0.19 mg/dL 0.00-1.30 [facility] CBC W/Diff, Automatedon 03-19 Absolute Lymph 0.62 X10 3/uL Low 0.83-4.51 [facility] Comment on above: Performed By: #### L 100.0100, L500.4050 ####[facility] [address] [place], [address] Absolute Neut 9.0 X10 3/uL High 2.0-7.7 [facility] Comment on above: Performed By: #### L 100.0100, L500.4050 ####[facility] [address] [place], [address] Basophils/100 WBC (Bld) 0.3 % Normal 0-1 [facility] Comment on above: Performed By: #### L 100.0100, L500.4050 ####[facility] [address] [place], [address] Eosinophils/100 WBC (Bld) 0.1 % Normal 0-5 [facility] Comment on above: Performed By: #### L 100.0100, L500.4050 ####[facility] [address] [place], [address] Erythrocyte distribution width (RBC) [Ratio] 14.7 % High 11.6-14.6 [facility] Comment on above: Performed By: #### L 100.0100, L500.4050 ####[facility] [address] [place], [address] Hematocrit (Bld) [Volume fraction] 46.8 % Normal 40-54 [facility] Comment on above: Performed By: #### L 100.0100, L500.4050 ####[facility] [address] [place], [address] Hemoglobin (Bld) [Mass/Vol] 15.7 g/dL Normal 13.0-16.5 [facility] Comment on above: Performed By: #### L 100.0100, L500.4050 ####[facility] [address] [place], [address] IG% 1.000 High 0.0-0.9 [facility] Comment on above: Result Comment: IG% - Immature Granulocytes (promyelocytes, myelocytes andmetamyelocytes) > 1% indicates that a LEFT SHIFT is Present. Performed By: #### L 100.0100, L500.4050 ####[facility] [address] [place], [address] Lymphocytes/100 WBC (Bld) 6.0 % Low 19-41 [facility] Comment on above: Performed By: #### L 100.0100, L500.4050 ####[facility] [address] [place], [address] MCH (RBC) [Entitic mass] 33.0 pg High 27.0-32.0 [facility] Comment on above: Performed By: #### L 100.0100, L500.4050 ####[facility] [address] [place], [address] MCHC (RBC) [Mass/Vol] 33.5 g/dL Normal 32-36 [facility] Comment on above: Performed By: #### L 100.0100, L500.4050 ####[facility] [address] [place], [address] MCV (RBC) [Entitic vol] 98.3 fL High 80-94 [facility] Comment on above: Performed By: #### L 100.0100, L500.4050 ####[facility] [address] [place], [address] Monocytes/100 WBC (Bld) 6.0 % Normal 0-10 [facility] Comment on above: Performed By: #### L 100.0100, L500.4050 ####[facility] [address] [place], [address] Neutrophils/100 WBC (Bld) 86.6 % High 47-70 [facility] Comment on above: Performed By: #### L 100.0100, L500.4050 ####[facility] [address] [place], [address] Nucleated RBC (Bld) [#/Vol] 0 10*3/uL Normal 0-5 [facility] Comment on above: Performed By: #### L 100.0100, L500.4050 ####[facility] [address] [place], [address] Platelet mean volume (Bld) [Entitic vol] 10.2 fL Normal 6.2-12.0 [facility] Comment on above: Performed By: #### L 100.0100, L500.4050 ####[facility] [address] [place], [address] Platelets (Bld) [#/Vol] 197 10*3/uL Normal 150-450 [facility] Comment on above: Performed By: #### L 100.0100, L500.4050 ####[facility] [address] [place], [address] RBC (Bld) [#/Vol] 4.76 10*6/uL Normal 4.6-6.2 [facility] Comment on above: Performed By: #### L 100.0100, L500.4050 ####[facility] [address] [place], [address] RDW SD 54.0 fl High 35.1-43.9 [facility] Comment on above: Performed By: #### L 100.0100, L500.4050 ####[facility] [address] [place], [address] WBC (Bld) [#/Vol] 10.4 10*3/uL Normal 4.4-11.0 [facility] Comment on above: Performed By: #### L 100.0100, L500.4050 ####[facility] [address] [place], [address] Carbon dioxide, total [Moles /volume] in Central venous bloodOrdered By: Vielka Ariana on 04-15-2025 CO2 [Moles/Vol] 18.6 mmol/L Low 21.0-32.0 [facility] Chloride assayOrdered By: Ty ra Lane on 04-15-2025 Chloride [Moles/Vol] 106 mmol/L 98-108 [facility] Comprehensive Metabolic Prof ilon 04-15-2025 Albumin [Mass/Vol] 3.8 g/dL Normal 3.5-5.0 [facility] Comment on above: Performed By: #### L 100.0100, L500.4050 ####[facility] [address] [place], [address] Albumin/Globulin [Mass ratio] 1.3 {ratio} Normal 0.9-2.4 [facility] Comment on above: Performed By: #### L 100.0100, L500.4050 ####[facility] [address] [place], [address] ALK PHOS 54 U/L Normal 40-129 [facility] Comment on above: Performed By: #### L 100.0100, L500.4050 ####[facility] [address] [place], [address] ALT [Catalytic activity/Vol] 30 U/L Normal <=46 [facility] Comment on above: Performed By: #### L 100.0100, L500.4050 ####[facility] [address] [place], [address] AST [Catalytic activity/Vol] 17 U/L Normal <=37 [facility] Comment on above: Performed By: #### L 100.0100, L500.4050 ####[facility] [address] [place], [address] Bilirubin [Mass/Vol] 0.19 mg/dL Normal 0.00-1.30 [facility] Comment on above: Performed By: #### L 100.0100, L500.4050 ####[facility] [address] [place], [address] BUN/CRE 16.5 RATIO Normal 10-20 [facility] Comment on above: Performed By: #### L 100.0100, L500.4050 ####[facility] [address] [place], [address] Calcium [Mass/Vol] 9.4 mg/dL Normal 7.6-11.0 [facility] Comment on above: Performed By: #### L 100.0100, L500.4050 ####[facility] [address] [place], [address] Chloride [Moles/Vol] 106 mmol/L Normal 98-108 [facility] Comment on above: Performed By: #### L 100.0100, L500.4050 ####[facility] [address] [place], [address] CO2 [Moles/Vol] 18.6 mmol/L Low 21.0-32.0 [facility] Comment on above: Performed By: #### L 100.0100, L500.4050 ####[facility] [address] [place], [address] Creatinine [Mass/Vol] 0.96 mg/dL Normal 0.70-1.20 [facility] Comment on above: Performed By: #### L 100.0100, L500.4050 ####[facility] [address] [place], [address] ECRCL 121.01 ml/min Normal 50-250 [facility] Comment on above: Performed By: #### L 100.0100, L500.4050 ####[facility] [address] [place], [address] GAP 15 Normal 5-15 [facility] Comment on above: Performed By: #### L 100.0100, L500.4050 ####[facility] [address] [place], [address] GFR/1.73 sq M.predicted among non-blacks MDRD (S/P/Bld) [Vol rate/Area] 96 mL/min/{1.73_m2} Normal >60 [place] Comment on above: Result Comment: mL/m in/1.73m2 CKD-EPI Creatinine Equation (2020) Performed By: #### L 100.0100, L500.4050 ####[facility] [address] [place], [address] Globulin (S) [Mass/Vol] 3.0 g/dL Normal 2.2-4.2 [facility] Comment on above: Performed By: #### L 100.0100, L500.4050 ####[facility] [address] [place], [address] Glucose [Mass/Vol] 104 mg/dL High 70-99 [facility] Comment on above: Performed By: #### L 100.0100, L500.4050 ####[facility] [address] [place], [address] Potassium [Moles/Vol] 4.1 mmol/L Normal 3.3-5.1 [facility] Comment on above: Performed By: #### L 100.0100, L500.4050 ####[facility] [address] [place], [address] Sodium [Moles/Vol] 139 mmol/L Normal 133-145 [facility] Comment on above: Performed By: #### L 100.0100, L500.4050 ####[facility] [address] [place], [address] T PROT 6.8 g/dL Normal 5.9-8.4 [facility] Comment on above: Performed By: #### L 100.0100, L500.4050 ####[facility] [address] [place], [address] Urea nitrogen [Mass/Vol] 16 mg/dL Normal 4-19 [facility] Comment on above: Performed By: #### L 100.0100, L500.4050 ####[facility] [address] [place], [address] Eosinophil percentageOrdered By: Vielka Lane on 04-15-2025 Eosinophils/100 WBC (Bld) 0.1 % 0-5 [facility] Erythrocyte distribution wid th ratioOrdered By: Vielka Lane on 04-15-2025 Erythrocyte distribution width (RBC) [Ratio] 14.7 % High 11.6-14.6 [facility] Erythrocyte distribution wid th standard deviationOrdered By: Vielka Lane on 04-15-2025 Erythrocyte distribution width (RBC) [Ratio] 54.0 fl High 35.1-43.9 [facility] Glomerular filtration rate ( GFR) estimation/1.73 sq m using serum, plasma, or whole bOrdered By: Vielka Lane on 04-15-2025 GFR/1.73 sq M.predicted among non-blacks MDRD (S/P/Bld) [Vol rate/Area] 96 mL/min/{1.73_m2} >60 [place] Comment on above: mL/min/1.73m2 CKD-EP I Creatinine Equation (2020) Hematocrit Auto (Bld) [Volum e fraction]Ordered By: Vielka Lane on 04-15-2025 Hematocrit (Bld) [Volume fraction] 46.8 % 40-54 [facility] Hemoglobin measurementOrdere d By: Vielka Lane on 04-15-2025 Hemoglobin (Bld) [Mass/Vol] 15.7 g/dL 13.0-16.5 [facility] Immature granulocytes/100 WB C Auto (Bld)Ordered By: Vielka Lane on 04-15-2025 Immature granulocytes/100 WBC (Bld) 1.000 % High 0.0-0.9 [facility] Comment on above: IG% - Immature Granu locytes (promyelocytes, myelocytes and metamyelocytes) > 1% indicates that a LEFT SHIFT is Present. Laboratory - Chemistry and C hemistry - challengeOrdered By: Vielka Lane on 04-15-2025 AST [Catalytic activity/Vol] 17 U/L <38 [facility] MCV (mean corpuscular volume ) determinationOrdered By: Vielka Lane on 04-15-2025 MCV (RBC) [Entitic vol] 98.3 fL High 80-94 [facility] Mean corpuscular hemoglobin (MCH) determinationOrdered By: Vielka Lane on 04-15-2025 MCH (RBC) [Entitic mass] 33.0 pg High 27.0-32.0 [facility] Mean corpuscular hemoglobin concentration (MCHC) determinationOrdered By: Vielka Lane on 04-15-2025 MCHC (RBC) [Mass/Vol] 33.5 g/dL 32-36 [facility] Mean platelet volume determi nationOrdered By: Vielka Lane on 04-15-2025 Platelet mean volume (Bld) [Entitic vol] 10.2 fL 6.2-12.0 [facility] Monocyte percentageOrdered B y: Vielka Lane on 04-15-2025 Monocytes/100 WBC (Bld) 6.0 % 0-10 [facility] Neutrophil percentageOrdered By: Vielka Lane on 04-15-2025 Neutrophils/100 WBC (Bld) 86.6 % High 47-70 [facility] Nucleated red blood cell per centageOrdered By: Vielka Lane on 04-15-2025 Nucleated RBC/100 WBC (Bld) [Ratio] 0 % 0-5 [facility] Oncology Visit Reporton 063 0 Oncology Visit Report Normal [facility] Platelet countOrdered By: Josh Lane on 04-15-2025 Platelets (Bld) [#/Vol] 197 10*3/uL 150-450 [facility] Potassium measurement (mass/ volume)Ordered By: Vielka Lane on 04-15-2025 Potassium (Unsp spec) [Mass/Vol] 4.1 mmol/L 3.3-5.1 [facility] RBC Auto (Bld) [#/Vol]Ordere d By: Vielka Lane on 04-15-2025 RBC (Bld) [#/Vol] 4.76 10*6/uL 4.6-6.2 [facility] Serum creatinine measurement (mass/volume)Ordered By: Vielka Lane on 04-15-2025 Creatinine [Mass/Vol] 0.96 mg/dL 0.70-1.20 [facility] Serum globulin measurementOr dered By: Vielka Lane on 04-15-2025 Globulin (S) [Mass/Vol] 3.0 g/dL 2.2-4.2 [facility] Serum glucose measurement (m ass/volume)Ordered By: Vielka Lane on 04-15-2025 Glucose [Mass/Vol] 104 mg/dL High 70-99 [facility] Serum or plasma alanine hale otransferase (ALT) measurementOrdered By: Vielka Lane on 04-15-2025 ALT [Catalytic activity/Vol] 30 U/L <47 [facility] Serum or plasma albumin marion urement (mass/volume)Ordered By: Vielka Lane on 04-15-2025 Albumin [Mass/Vol] 3.8 g/dL 3.5-5.0 [facility] Serum or plasma albumin/glob ulin mass ratioOrdered By: Vielka Lane on 04-15-2025 Albumin/Globulin [Mass ratio] 1.3 {ratio} 0.9-2.4 [facility] Serum or plasma alkaline jessica sphatase measurementOrdered By: Vielka Lane on 04-15-2025 ALP [Catalytic activity/Vol] 54 U/L 40-129 [facility] Serum or plasma calcium marion urement (mass/volume)Ordered By: Vielka Lane on 04-15-2025 Calcium [Mass/Vol] 9.4 mg/dL 7.6-11.0 [facility] Serum or plasma urea nitroge n measurement (mass/volume)Ordered By: Vielka Lane on 04-15-2025 Urea nitrogen [Mass/Vol] 16 mg/dL 4-19 [facility] Sodium levelOrdered By: Vielka Lane on 04-15-2025 Sodium [Moles/Vol] 139 mmol/L 133-145 [facility] Total proteinOrdered By: Luis Lane on 04-15-2025 Protein [Mass/Vol] 6.8 g/dL 5.9-8.4 [facility] White blood cell (WBC) count Ordered By: Vielka Lane on 04-15-2025 WBC (Bld) [#/Vol] 10.4 10*3/uL 4.4-11.0 [facility] Magnetic resonance imaging r eportOrdered By: King Collins on 04-09-2025 Study report [facility] [address] [place], [place] [address] Brain W/WO Contrast MR#: [id number] Acct: [id number] Name: LAMINE JOSEPH Rep #: [id number] : 1975 M 49 From: Blanco Collins MD PCP: Care Physician,No Primary Status: REG CLI Study:Brain W/WO Contrast Date of Exam: 04/08/25 Exam# [id number] Ordering Dr: Vielka Sandoval NP CAMPAIGN COORDINATOR-C PROCEDURE: BRAIN W/WO CONTRAST 04/08/2025 REASON FOR EXAM: HEADACHE, FREQUENT FALLS, 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 CONTRAST: 23 cc [facility] COMPARISON: February 13, 2025 FINDINGS: Brain: There is an enhancing lesion in the left frontal pole measuring 1.0 x 0.8cm, image 123/176, 0.5 by 0.4 cm on the prior. There is a enhancing lesion in the left frontal pole measuring 0.8 x 0.8 cm, image 117, 0.7 x 0.6 cm on the prior. There is a dominant mass which extends into the right and left frontal lobes and crosses ofthe falx and anterior corpus callosum which shows increased bulk and peripheral nodularity, measuring approximately 6.2 by 4.6 cm, image 104/176, 4.8 by 4.2 cm on the prior. There is a 0.3 cm enhancing focus in the left periventricular deep white matter,with an adjacent 0.2 x 0.2 cm enhancing nodule, image 118/176, slightly increased. There is a 2.3 by 1.6 cm enhancing lesion inthe left thalamus image 83/176, 1.8 by 1.4 cm on the prior, with restricted diffusion components. There is an enhancing lesion in the left temporal lobe, 0.9 x 0.7 Cm, image 98/176, 0.5 by 0.7 cm on the prior. There 0.5 cm midline shift of the interventricular septum towards the left, unchanged. MRI/Brain W/WO Contrast IMPRESSION: There is an enhancing lesion in the left frontal pole measuring 1.0 x 0.8 cm, image 123/176, 0.5 by 0.4 cm on the prior. There is a enhancing lesion in the left frontal pole measuring 0.8 x 0.8 cm, image 117, 0.7 x 0.6 cm on the prior. There is a dominant mass which extends into the right and left frontal lobes andcrosses of the falx and anterior corpus callosum which shows increased bulk and peripheral nodularity, measuring approximately 6.2 by 4.6 cm, image 104/176, 4.8 by 4.2 cm on the prior. There is a 0.3 cm enhancing focus in the left periventricular deep white matter,with an adjacent 0.2 x 0.2 cm enhancing nodule, image 118/176, slightly increased. There is a 2.3 by 1.6 cm enhancing lesion in the left thalamus image 83/176, 1.8by 1.4 cm on the prior, with restricted diffusion components. There is an enhancing lesion in the left temporal lobe, 0.9 x 0.7 Cm, image 98/176, 0.5 by 0.7 cm on the prior. There 0.5 cm midline shift of the interventricular septum towards the left, unchanged. Reading Location: [facility] CC: SASHA Lane; No Primary Care Physician ~ Bird Tender: Signed [facility] Brain W/WO Contraston 2024 Brain W/WO Contrast Normal [facility] Absolute lymphocyte countOrd ered By: [facility] Yoni on 04-01-2025 Lymphocytes Auto (Unsp spec) [#/Vol] 0.73 10*3/uL Low 0.83-4.51 [facility] Absolute neutrophil countOrd ered By: [facility] 04-01-2025 Neutrophils (Bld) [#/Vol] 12.4 10*3/uL High 2.0-7.7 [facility] Anion gap in Serum or Plasma Ordered By: [facility] on 04-01-2025 Anion gap [Moles/Vol] 16 mmol/L High 5-15 [facility] Automated lymphocyte count a s percentage of total leukocytesOrdered By: [facility] on 04-01-2025 Lymphocytes/100 WBC Auto (Unsp spec) 5.1 % Low 19-41 [facility] BUN/creatinine ratioOrdered By: [facility] on 04-01-2025 Urea nitrogen/Creatinine [Mass ratio] 16.9 mg/mg 10-20 [facility] Basophil percentageOrdered B y: [facility] Yoni on 04-01-2025 Basophils/100 WBC (Bld) 0.3 % 0-1 [facility] Bilirubin, totalOrdered By: [facility] Yoni on 04-01-2025 Bilirubin [Mass/Vol] 0.26 mg/dL 0.00-1.30 [facility] CBC W/Diff, Automatedon 03-17 Absolute Lymph 0.73 X10 3/uL Low 0.83-4.51 [facility] Comment on above: Performed By: #### L 500.4050, L100.0100 ####[facility] [address] [place], [place], [id number] Absolute Neut 12.4 X10 3/uL High 2.0-7.7 [facility] Comment on above: Performed By: #### L 500.4050, L100.0100 ####[facility] [address] [place], [address] Basophils/100 WBC (Bld) 0.3 % Normal 0-1 [facility] Comment on above: Performed By: #### L 500.4050, L100.0100 ####[facility] [address] [place], [address] Eosinophils/100 WBC (Bld) 0.1 % Normal 0-5 [facility] Comment on above: Performed By: #### L 500.4050, L100.0100 ####[facility] [address] [place], [address] Erythrocyte distribution width (RBC) [Ratio] 14.4 % Normal 11.6-14.6 [facility] Comment on above: Performed By: #### L 500.4050, L100.0100 ####[facility] [address] [place], [address] Hematocrit (Bld) [Volume fraction] 46.3 % Normal 40-54 [facility] Comment on above: Performed By: #### L 500.4050, L100.0100 ####[facility] [address] [place], [address] Hemoglobin (Bld) [Mass/Vol] 15.6 g/dL Normal 13.0-16.5 [facility] Comment on above: Performed By: #### L 500.4050, L100.0100 ####[facility] [address] [place], [address] IG% 0.800 Normal 0.0-0.9 [facility] Comment on above: Result Comment: IG% - Immature Granulocytes (promyelocytes, myelocytes andmetamyelocytes) > 1% indicates that a LEFT SHIFT is Present. Performed By: #### L 500.4050, L100.0100 ####[facility] [address] [place], [address] Lymphocytes/100 WBC (Bld) 5.1 % Low 19-41 [facility] Comment on above: Performed By: #### L 500.4050, L100.0100 ####[facility] [address] [place], [address] MCH (RBC) [Entitic mass] 33.0 pg High 27.0-32.0 [facility] Comment on above: Performed By: #### L 500.4050, L100.0100 ####[facility] [address] [place], [address] MCHC (RBC) [Mass/Vol] 33.7 g/dL Normal 32-36 [facility] Comment on above: Performed By: #### L 500.4050, L100.0100 ####[facility] [address] [place], [address] MCV (RBC) [Entitic vol] 97.9 fL High 80-94 [facility] Comment on above: Performed By: #### L 500.4050, L100.0100 ####[facility] [address] [place], [address] Monocytes/100 WBC (Bld) 6.8 % Normal 0-10 [facility] Comment on above: Performed By: #### L 500.4050, L100.0100 ####[facility] [address] [place], [address] Neutrophils/100 WBC (Bld) 86.9 % High 47-70 [facility] Comment on above: Performed By: #### L 500.4050, L100.0100 ####[facility] [address] [place], [address] Nucleated RBC (Bld) [#/Vol] 0 10*3/uL Normal 0-5 [facility] Comment on above: Performed By: #### L 500.4050, L100.0100 ####[facility] [address] [place], [address] Platelet mean volume (Bld) [Entitic vol] 9.8 fL Normal 6.2-12.0 [facility] Comment on above: Performed By: #### L 500.4050, L100.0100 ####[facility] [address] [place], [address] Platelets (Bld) [#/Vol] 192 10*3/uL Normal 150-450 [facility] Comment on above: Performed By: #### L 500.4050, L100.0100 ####[facility] [address] [place], [address] RBC (Bld) [#/Vol] 4.73 10*6/uL Normal 4.6-6.2 [facility] Comment on above: Performed By: #### L 500.4050, L100.0100 ####[facility] [address] [place], [address] RDW SD 52.3 fl High 35.1-43.9 [facility] Comment on above: Performed By: #### L 500.4050, L100.0100 ####[facility] [address] [place], [address] WBC (Bld) [#/Vol] 14.3 10*3/uL High 4.4-11.0 [facility] Comment on above: Performed By: #### L 500.4050, L100.0100 ####[facility] [address] [place], [address] Carbon dioxide, total [Moles /volume] in Central venous bloodOrdered By: Enrique Vallejo on 04-01-2025 CO2 [Moles/Vol] 18.2 mmol/L Low 21.0-32.0 [facility] Chloride assayOrdered By: Haris Vallejo on 04-01-2025 Chloride [Moles/Vol] 105 mmol/L 98-108 [facility] Comprehensive Metabolic Prof ilon 04-01-2025 Albumin [Mass/Vol] 3.8 g/dL Normal 3.5-5.0 [facility] Comment on above: Performed By: #### L 500.4050, L100.0100 ####[facility] [address] [place], [address] Albumin/Globulin [Mass ratio] 1.2 {ratio} Normal 0.9-2.4 [facility] Comment on above: Performed By: #### L 500.4050, L100.0100 ####[facility] [address] [place], [address] ALK PHOS 53 U/L Normal 40-129 [facility] Comment on above: Performed By: #### L 500.4050, L100.0100 ####[facility] [address] [place], [address] ALT [Catalytic activity/Vol] 33 U/L Normal <=46 [facility] Comment on above: Performed By: #### L 500.4050, L100.0100 ####[facility] [address] [place], [address] AST [Catalytic activity/Vol] 18 U/L Normal <=37 [facility] Comment on above: Performed By: #### L 500.4050, L100.0100 ####[facility] [address] [place], [address] Bilirubin [Mass/Vol] 0.26 mg/dL Normal 0.00-1.30 [facility] Comment on above: Performed By: #### L 500.4050, L100.0100 ####[facility] [address] [place], [address] BUN/CRE 16.9 RATIO Normal 10-20 [facility] Comment on above: Performed By: #### L 500.4050, L100.0100 ####[facility] [address] [place], [address] Calcium [Mass/Vol] 9.3 mg/dL Normal 7.6-11.0 [facility] Comment on above: Performed By: #### L 500.4050, L100.0100 ####[facility] [address] [place], [address] Chloride [Moles/Vol] 105 mmol/L Normal 98-108 [facility] Comment on above: Performed By: #### L 500.4050, L100.0100 ####[facility] [address] [place], [address] CO2 [Moles/Vol] 18.2 mmol/L Low 21.0-32.0 [facility] Comment on above: Performed By: #### L 500.4050, L100.0100 ####[facility] [address] [place], [address] Creatinine [Mass/Vol] 1.08 mg/dL Normal 0.70-1.20 [facility] Comment on above: Performed By: #### L 500.4050, L100.0100 ####[facility] [address] [place], [address] ECRCL 107.57 ml/min Normal 50-250 [facility] Comment on above: Performed By: #### L 500.4050, L100.0100 ####[facility] [address] [place], [address] GAP 16 High 5-15 [facility] Comment on above: Performed By: #### L 500.4050, L100.0100 ####[facility] [address] [place], [address] GFR/1.73 sq M.predicted among non-blacks MDRD (S/P/Bld) [Vol rate/Area] 84 mL/min/{1.73_m2} Normal >60 [place] Comment on above: Result Comment: mL/m in/1.73m2 CKD-EPI Creatinine Equation (2020) Performed By: #### L 500.4050, L100.0100 ####[facility] [address] [place], [address] Globulin (S) [Mass/Vol] 3.2 g/dL Normal 2.2-4.2 [facility] Comment on above: Performed By: #### L 500.4050, L100.0100 ####[facility] [address] [place], [address] Glucose [Mass/Vol] 134 mg/dL High 70-99 [facility] Comment on above: Performed By: #### L 500.4050, L100.0100 ####[facility] [address] [place], [address] Potassium [Moles/Vol] 3.5 mmol/L Normal 3.3-5.1 [facility] Comment on above: Performed By: #### L 500.4050, L100.0100 ####[facility] [address] [place], [address] Sodium [Moles/Vol] 139 mmol/L Normal 133-145 [facility] Comment on above: Performed By: #### L 500.4050, L100.0100 ####[facility] [address] [place], [address] T PROT 7.0 g/dL Normal 5.9-8.4 [facility] Comment on above: Performed By: #### L 500.4050, L100.0100 ####[facility] [address] [place], [place], [id number] Urea nitrogen [Mass/Vol] 18 mg/dL Normal 4-19 [facility] Comment on above: Performed By: #### L 500.4050, L100.0100 ####[facility] [address] [place], [address] Eosinophil percentageOrdered By: Enrique Vallejo on 04-01-2025 Eosinophils/100 WBC (Bld) 0.1 % 0-5 [facility] Erythrocyte distribution wid th ratioOrdered By: [facility] Yoni on 04-01-2025 Erythrocyte distribution width (RBC) [Ratio] 14.4 % 11.6-14.6 [facility] Erythrocyte distribution wid th standard deviationOrdered By: [facility]le[facility] on 04-01-2025 Erythrocyte distribution width (RBC) [Ratio] 52.3 fl High 35.1-43.9 [facility] Glomerular filtration rate ( GFR) estimation/1.73 sq m using serum, plasma, or whole bOrdered By: [facility] on 04-01-2025 GFR/1.73 sq M.predicted among non-blacks MDRD (S/P/Bld) [Vol rate/Area] 84 mL/min/{1.73_m2} >60 [place] Comment on above: mL/min/1.73m2 CKD-EP I Creatinine Equation (2020) Hematocrit Auto (Bld) [Volum e fraction]Ordered By: Enrique Vallejo on 04-01-2025 Hematocrit (Bld) [Volume fraction] 46.3 % 40-54 [facility] Hemoglobin measurementOrdere d By: [facility] on 04-01-2025 Hemoglobin (Bld) [Mass/Vol] 15.6 g/dL 13.0-16.5 [facility] Immature granulocytes/100 WB C Auto (Bld)Ordered By: [facility] on 04-01-2025 Immature granulocytes/100 WBC (Bld) 0.800 % 0.0-0.9 [facility] Comment on above: IG% - Immature Granu locytes (promyelocytes, myelocytes and metamyelocytes) > 1% indicates that a LEFT SHIFT is Present. Laboratory - Chemistry and C hemistry - challengeOrdered By: Enrique Vallejo on 04-01-2025 AST [Catalytic activity/Vol] 18 U/L <38 [facility] MCV (mean corpuscular volume ) determinationOrdered By: Enrique Vallejo on 04-01-2025 MCV (RBC) [Entitic vol] 97.9 fL High 80-94 [facility] Mean corpuscular hemoglobin (MCH) determinationOrdered By: Enrique Vallejo on 04-01-2025 MCH (RBC) [Entitic mass] 33.0 pg High 27.0-32.0 [facility] Mean corpuscular hemoglobin concentration (MCHC) determinationOrdered By: Enrique Vallejo on 04-01-2025 MCHC (RBC) [Mass/Vol] 33.7 g/dL 32-36 [facility] Mean platelet volume determi nationOrdered By: Enrique Vallejo on 04-01-2025 Platelet mean volume (Bld) [Entitic vol] 9.8 fL 6.2-12.0 [facility] Monocyte percentageOrdered B y: Enrique Vallejo on 04-01-2025 Monocytes/100 WBC (Bld) 6.8 % 0-10 [facility] Neutrophil percentageOrdered By: Enrique Vallejo on 04-01-2025 Neutrophils/100 WBC (Bld) 86.9 % High 47-70 [facility] Nucleated red blood cell per centageOrdered By: Enrique Vallejo on 04-01-2025 Nucleated RBC/100 WBC (Bld) [Ratio] 0 % 0-5 [facility] Oncology Visit Reporton 03-17 Oncology Visit Report Normal [facility] Platelet countOrdered By: Haris Vallejo on 04-01-2025 Platelets (Bld) [#/Vol] 192 10*3/uL 150-450 [facility] Potassium measurement (mass/ volume)Ordered By: Enrique Vallejo on 04-01-2025 Potassium (Unsp spec) [Mass/Vol] 3.5 mmol/L 3.3-5.1 [facility] RBC Auto (Bld) [#/Vol]Ordere d By: Enrique Vallejo on 04-01-2025 RBC (Bld) [#/Vol] 4.73 10*6/uL 4.6-6.2 [facility] Serum creatinine measurement (mass/volume)Ordered By: Enrique Vallejo on 04-01-2025 Creatinine [Mass/Vol] 1.08 mg/dL 0.70-1.20 [facility] Serum globulin measurementOr dered By: Enrique Vallejo on 04-01-2025 Globulin (S) [Mass/Vol] 3.2 g/dL 2.2-4.2 [facility] Serum glucose measurement (m ass/volume)Ordered By: Enrique Vallejo on 04-01-2025 Glucose [Mass/Vol] 134 mg/dL High 70-99 [facility] Serum or plasma alanine hale otransferase (ALT) measurementOrdered By: Enrique Vallejo on 04-01-2025 ALT [Catalytic activity/Vol] 33 U/L <47 [facility] Serum or plasma albumin marion urement (mass/volume)Ordered By: Enrique Vallejo on 04-01-2025 Albumin [Mass/Vol] 3.8 g/dL 3.5-5.0 [facility] Serum or plasma albumin/glob ulin mass ratioOrdered By: Enrique Vallejo on 04-01-2025 Albumin/Globulin [Mass ratio] 1.2 {ratio} 0.9-2.4 [facility] Serum or plasma alkaline jessica sphatase measurementOrdered By: Enrique Vallejo on 04-01-2025 ALP [Catalytic activity/Vol] 53 U/L 40-129 [facility] Serum or plasma calcium marion urement (mass/volume)Ordered By: Enrique Vallejo on 04-01-2025 Calcium [Mass/Vol] 9.3 mg/dL 7.6-11.0 [facility] Serum or plasma urea nitroge n measurement (mass/volume)Ordered By: Enrique Vallejo on 04-01-2025 Urea nitrogen [Mass/Vol] 18 mg/dL 4-19 [facility] Sodium levelOrdered By: Vianca Vallejo on 04-01-2025 Sodium [Moles/Vol] 139 mmol/L 133-145 [facility] Total proteinOrdered By: Popeye Vallejo on 04-01-2025 Protein [Mass/Vol] 7.0 g/dL 5.9-8.4 [facility] White blood cell (WBC) count Ordered By: Enrique Yoni on 04-01-2025 WBC (Bld) [#/Vol] 14.3 10*3/uL High 4.4-11.0 [facility] Absolute lymphocyte countOrd ered By: Geoff Dallas on 03-18-2025 Lymphocytes Auto (Unsp spec) [#/Vol] 0.47 10*3/uL Low 0.83-4.51 [facility] Absolute neutrophil countOrd ered By: Geoff Dallas on 03-18-2025 Neutrophils (Bld) [#/Vol] 10.5 10*3/uL High 2.0-7.7 [facility] Anion gap in Serum or Plasma Ordered By: Geoff Dallas on 03-18-2025 Anion gap [Moles/Vol] 13 mmol/L 5-15 [facility] Automated lymphocyte count a s percentage of total leukocytesOrdered By: Geoff Dallas on 03-18-2025 Lymphocytes/100 WBC Auto (Unsp spec) 4.0 % Low 19-41 [facility] BUN/creatinine ratioOrdered By: Geoff Dallas on 03-18-2025 Urea nitrogen/Creatinine [Mass ratio] 19.1 mg/mg 10-20 [facility] Basophil percentageOrdered B y: Geoff Dallas on 03-18-2025 Basophils/100 WBC (Bld) 0.2 % 0-1 [facility] Bilirubin, totalOrdered By: Geoff Dallas on 03-18-2025 Bilirubin [Mass/Vol] 0.23 mg/dL 0.00-1.30 [facility] CBC W/Diff, Automatedon Absolute Lymph 0.47 X10 3/uL Low 0.83-4.51 [facility] Comment on above: Performed By: #### L 100.0100, L504.2610, L500.4050 ####[facility] [address] [place], [place], [id number] Absolute Neut 10.5 X10 3/uL High 2.0-7.7 [facility] Comment on above: Performed By: #### L 100.0100, L504.2610, L500.4050 ####[facility] [address] [place], [address] Basophils/100 WBC (Bld) 0.2 % Normal 0-1 [facility] Comment on above: Performed By: #### L 100.0100, L504.2610, L500.4050 ####[facility] [address] [place], [address] Eosinophils/100 WBC (Bld) 0.1 % Normal 0-5 [facility] Comment on above: Performed By: #### L 100.0100, L504.2610, L500.4050 ####[facility] [address] [place], [address] Erythrocyte distribution width (RBC) [Ratio] 14.6 % Normal 11.6-14.6 [facility] Comment on above: Performed By: #### L 100.0100, L504.2610, L500.4050 ####[facility] [address] [place], [address] Hematocrit (Bld) [Volume fraction] 45.4 % Normal 40-54 [facility] Comment on above: Performed By: #### L 100.0100, L504.2610, L500.4050 ####[facility] [address] [place], [address] Hemoglobin (Bld) [Mass/Vol] 15.3 g/dL Normal 13.0-16.5 [facility] Comment on above: Performed By: #### L 100.0100, L504.2610, L500.4050 ####[facility] [address] [place], [address] IG% 0.700 Normal 0.0-0.9 [facility] Comment on above: Result Comment: IG% - Immature Granulocytes (promyelocytes, myelocytes andmetamyelocytes) > 1% indicates that a LEFT SHIFT is Present. Performed By: #### L 100.0100, L504.2610, L500.4050 ####[facility] [address] [place], [address] Lymphocytes/100 WBC (Bld) 4.0 % Low 19-41 [facility] Comment on above: Performed By: #### L 100.0100, L504.2610, L500.4050 ####[facility] [address] [place], [address] MCH (RBC) [Entitic mass] 33.8 pg High 27.0-32.0 [facility] Comment on above: Performed By: #### L 100.0100, L504.2610, L500.4050 ####[facility] [address] [place], [address] MCHC (RBC) [Mass/Vol] 33.7 g/dL Normal 32-36 [facility] Comment on above: Performed By: #### L 100.0100, L504.2610, L500.4050 ####[facility] [address] [place], [address] MCV (RBC) [Entitic vol] 100.2 fL High 80-94 [facility] Comment on above: Performed By: #### L 100.0100, L504.2610, L500.4050 ####[facility] [address] [place], [address] Monocytes/100 WBC (Bld) 6.4 % Normal 0-10 [facility] Comment on above: Performed By: #### L 100.0100, L504.2610, L500.4050 ####[facility] [address] [place], [address] Neutrophils/100 WBC (Bld) 88.6 % High 47-70 [facility] Comment on above: Performed By: #### L 100.0100, L504.2610, L500.4050 ####[facility] [address] [place], [address] Nucleated RBC (Bld) [#/Vol] 0 10*3/uL Normal 0-5 [facility] Comment on above: Performed By: #### L 100.0100, L504.2610, L500.4050 ####[facility] [address] [place], [address] Platelet mean volume (Bld) [Entitic vol] 9.9 fL Normal 6.2-12.0 [facility] Comment on above: Performed By: #### L 100.0100, L504.2610, L500.4050 ####[facility] [address] [place], [address] Platelets (Bld) [#/Vol] 202 10*3/uL Normal 150-450 [facility] Comment on above: Performed By: #### L 100.0100, L504.2610, L500.4050 ####[facility] [address] [place], [address] RBC (Bld) [#/Vol] 4.53 10*6/uL Low 4.6-6.2 [facility] Comment on above: Performed By: #### L 100.0100, L504.2610, L500.4050 ####[facility] [address] [place], [address] RDW SD 54.2 fl High 35.1-43.9 [facility] Comment on above: Performed By: #### L 100.0100, L504.2610, L500.4050 ####[facility] [address] [place], [address] WBC (Bld) [#/Vol] 11.9 10*3/uL High 4.4-11.0 [facility] Comment on above: Performed By: #### L 100.0100, L504.2610, L500.4050 ####[facility] [address] [place], [address] Carbon dioxide, total [Moles /volume] in Central venous bloodOrdered By: Geoff Dallas on 03-18-2025 CO2 [Moles/Vol] 20.9 mmol/L Low 21.0-32.0 [facility] Chloride assayOrdered By: Dian Dallas on 03-18-2025 Chloride [Moles/Vol] 105 mmol/L 98-108 [facility] Comprehensive Metabolic Prof ilon 03-18-2025 ALT [Catalytic activity/Vol] 38 U/L Normal <=46 [facility] Comment on above: Performed By: #### L 100.0100, L504.2610, L500.4050 ####[facility] [address] [place], [address] Eosinophil percentageOrdered By: Geoff Dallas on 03-18-2025 Eosinophils/100 WBC (Bld) 0.1 % 0-5 [facility] Erythrocyte distribution wid th ratioOrdered By: Geoff Dallas on 03-18-2025 Erythrocyte distribution width (RBC) [Ratio] 14.6 % 11.6-14.6 [facility] Erythrocyte distribution wid th standard deviationOrdered By: Geoff Dallas on 03-18-2025 Erythrocyte distribution width (RBC) [Ratio] 54.2 fl High 35.1-43.9 [facility] Glomerular filtration rate ( GFR) estimation/1.73 sq m using serum, plasma, or whole bOrdered By: Geoff Dallas on 03-18-2025 GFR/1.73 sq M.predicted among non-blacks MDRD (S/P/Bld) [Vol rate/Area] 90 mL/min/{1.73_m2} >60 [place] Comment on above: mL/min/1.73m2 CKD-EP I Creatinine Equation (2020) Hematocrit Auto (Bld) [Volum e fraction]Ordered By: Geoff Dallas on 03-18-2025 Hematocrit (Bld) [Volume fraction] 45.4 % 40-54 [facility] Hemoglobin measurementOrdere d By: Geoff Dallas on 03-18-2025 Hemoglobin (Bld) [Mass/Vol] 15.3 g/dL 13.0-16.5 [facility] Immature granulocytes/100 WB C Auto (Bld)Ordered By: Geoff Dallas on 03-18-2025 Immature granulocytes/100 WBC (Bld) 0.700 % 0.0-0.9 [facility] Comment on above: IG% - Immature Granu locytes (promyelocytes, myelocytes and metamyelocytes) > 1% indicates that a LEFT SHIFT is Present. LDHon 03-18-2025 LDH 356 U/L High 87-241 [facility] Comment on above: Order Comment: 1 Performed By: #### L 100.0100, L504.2610, L500.4050 ####[facility] [address] [place], [address] Laboratory - Chemistry and C hemistry - challengeOrdered By: Geoff Dallas on 03-18-2025 AST [Catalytic activity/Vol] 18 U/L <38 [facility] Lactate dehydrogenase (LDH) measurementOrdered By: Geoff Dallas on 03-18-2025 LDH [Catalytic activity/Vol] 356 U/L High 87-241 [facility] MCV (mean corpuscular volume ) determinationOrdered By: Geoff Dallas on 03-18-2025 MCV (RBC) [Entitic vol] 100.2 fL High 80-94 [facility] Mean corpuscular hemoglobin (MCH) determinationOrdered By: Geoff Dallas on 03-18-2025 MCH (RBC) [Entitic mass] 33.8 pg High 27.0-32.0 [facility] Mean corpuscular hemoglobin concentration (MCHC) determinationOrdered By: Geoff Dallas on 03-18-2025 MCHC (RBC) [Mass/Vol] 33.7 g/dL 32-36 [facility] Mean platelet volume determi nationOrdered By: Geoff Dallas on 03-18-2025 Platelet mean volume (Bld) [Entitic vol] 9.9 fL 6.2-12.0 [facility] Monocyte percentageOrdered B y: Geoff Dallas on 03-18-2025 Monocytes/100 WBC (Bld) 6.4 % 0-10 [facility] Neutrophil percentageOrdered By: Geoff Dallas on 03-18-2025 Neutrophils/100 WBC (Bld) 88.6 % High 47-70 [facility] Nucleated red blood cell per centageOrdered By: Geoff Dallas on 03-18-2025 Nucleated RBC/100 WBC (Bld) [Ratio] 0 % 0-5 [facility] Oncology Visit Reporton 06-0 Oncology Visit Report Normal [facility] Platelet countOrdered By: Dian Dallas on 03-18-2025 Platelets (Bld) [#/Vol] 202 10*3/uL 150-450 [facility] Potassium measurement (mass/ volume)Ordered By: Geoff Dallas on 03-18-2025 Potassium (Unsp spec) [Mass/Vol] 3.9 mmol/L 3.3-5.1 [facility] RBC Auto (Bld) [#/Vol]Ordere d By: Geoff Dallas on 03-18-2025 RBC (Bld) [#/Vol] 4.53 10*6/uL Low 4.6-6.2 [facility] Serum creatinine measurement (mass/volume)Ordered By: Geoff Dallas on 03-18-2025 Creatinine [Mass/Vol] 1.02 mg/dL 0.70-1.20 [facility] Serum globulin measurementOr dered By: Geoff Dlalas on 03-18-2025 Globulin (S) [Mass/Vol] 3.1 g/dL 2.2-4.2 [facility] Serum glucose measurement (m ass/volume)Ordered By: Geoff Dallas on 03-18-2025 Glucose [Mass/Vol] 120 mg/dL High 70-99 [facility] Serum or plasma alanine hale otransferase (ALT) measurementOrdered By: Geoff Dallas on 03-18-2025 ALT [Catalytic activity/Vol] 38 U/L <47 [facility] Serum or plasma albumin marion urement (mass/volume)Ordered By: Geoff Dallas on 03-18-2025 Albumin [Mass/Vol] 3.8 g/dL 3.5-5.0 [facility] Serum or plasma albumin/glob ulin mass ratioOrdered By: Geoff Dallas on 03-18-2025 Albumin/Globulin [Mass ratio] 1.3 {ratio} 0.9-2.4 [facility] Serum or plasma alkaline jessica sphatase measurementOrdered By: Geoff Dallas on 03-18-2025 ALP [Catalytic activity/Vol] 55 U/L 40-129 [facility] Serum or plasma calcium marion urement (mass/volume)Ordered By: Geoff Dallas on 03-18-2025 Calcium [Mass/Vol] 9.8 mg/dL 7.6-11.0 [facility] Serum or plasma urea nitroge n measurement (mass/volume)Ordered By: Geoff Dallas on 03-18-2025 Urea nitrogen [Mass/Vol] 20 mg/dL High 4-19 [facility] Sodium levelOrdered By: Minh Dallas on 03-18-2025 Sodium [Moles/Vol] 139 mmol/L 133-145 [facility] Total proteinOrdered By: Miguel Dallas on 03-18-2025 Protein [Mass/Vol] 6.9 g/dL 5.9-8.4 [facility] White blood cell (WBC) count Ordered By: Geoff Dallas on 03-18-2025 WBC (Bld) [#/Vol] 11.9 10*3/uL High 4.4-11.0 [facility] OT General Evaluationon 02-15 OT General Evaluation Normal [facility] Inital Evaluation (1) - PTon 03-12-2025 Inital Evaluation (1) - PT Normal [facility] Absolute lymphocyte countOrd ered By: Geoff Dallas on 03-04-2025 Lymphocytes Auto (Unsp spec) [#/Vol] 1.59 10*3/uL 0.83-4.51 [facility] Absolute neutrophil countOrd ered By: Geoff Dallas on 03-04-2025 Neutrophils (Bld) [#/Vol] 5.1 10*3/uL 2.0-7.7 [facility] Anion gap in Serum or Plasma Ordered By: Geoff Dallas on 03-04-2025 Anion gap [Moles/Vol] 13 mmol/L 5- [facility] Automated lymphocyte count a s percentage of total leukocytesOrdered By: Geoff Dallas on 03-04-2025 Lymphocytes/100 WBC Auto (Unsp spec) 20.6 % - [facility] BUN/creatinine ratioOrdered By: Geoff Dallas on 03-04-2025 Urea nitrogen/Creatinine [Mass ratio] 20.0 mg/mg 10- [facility] Basophil percentageOrdered B y: Geoff Dallas on 03-04-2025 Basophils/100 WBC (Bld) 0.5 % 0-1 [facility] Bilirubin, totalOrdered By: Geoff Dallas on 03-04-2025 Bilirubin [Mass/Vol] 0.18 mg/dL 0.00-1.30 [facility] CBC W/Diff, Automatedon 02-14 Absolute Lymph 1.59 X10 3/uL Normal 0.83-4.51 [facility] Comment on above: Performed By: #### L 500.4050, L100.0100, L504.2610 ####[facility] [address] [place], [address] Absolute Neut 5.1 X10 3/uL Normal 2.0-7.7 [facility] Comment on above: Performed By: #### L 500.4050, L100.0100, L504.2610 ####[facility] [address] [place], [address] Basophils/100 WBC (Bld) 0.5 % Normal 0-1 [facility] Comment on above: Performed By: #### L 500.4050, L100.0100, L504.2610 ####[facility] [address] [place], [address] Eosinophils/100 WBC (Bld) 0.5 % Normal 0-5 [facility] Comment on above: Performed By: #### L 500.4050, L100.0100, L504.2610 ####[facility] [address] [place], [address] Erythrocyte distribution width (RBC) [Ratio] 13.9 % Normal 11.6-14.6 [facility] Comment on above: Performed By: #### L 500.4050, L100.0100, L504.2610 ####[facility] [address] [place], [address] Hematocrit (Bld) [Volume fraction] 43.8 % Normal 40-54 [facility] Comment on above: Performed By: #### L 500.4050, L100.0100, L504.2610 ####[facility] [address] [place], [address] Hemoglobin (Bld) [Mass/Vol] 15.0 g/dL Normal 13.0-16.5 [facility] Comment on above: Performed By: #### L 500.4050, L100.0100, L504.2610 ####[facility] [address] [place], [address] IG% 1.000 High 0.0-0.9 [facility] Comment on above: Result Comment: IG% - Immature Granulocytes (promyelocytes, myelocytes andmetamyelocytes) > 1% indicates that a LEFT SHIFT is Present. Performed By: #### L 500.4050, L100.0100, L504.2610 ####[facility] [address] [place], [address] Lymphocytes/100 WBC (Bld) 20.6 % Normal 19-41 [facility] Comment on above: Performed By: #### L 500.4050, L100.0100, L504.2610 ####[facility] [address] [place], [address] MCH (RBC) [Entitic mass] 34.1 pg High 27.0-32.0 [facility] Comment on above: Performed By: #### L 500.4050, L100.0100, L504.2610 ####[facility] [address] [place], [address] MCHC (RBC) [Mass/Vol] 34.2 g/dL Normal 32-36 [facility] Comment on above: Performed By: #### L 500.4050, L100.0100, L504.2610 ####[facility] [address] [place], [address] MCV (RBC) [Entitic vol] 99.5 fL High 80-94 [facility] Comment on above: Performed By: #### L 500.4050, L100.0100, L504.2610 ####[facility] [address] [place], [address] Monocytes/100 WBC (Bld) 10.9 % High 0-10 [facility] Comment on above: Performed By: #### L 500.4050, L100.0100, L504.2610 ####[facility] [address] [place], [address] Neutrophils/100 WBC (Bld) 66.5 % Normal 47-70 [facility] Comment on above: Performed By: #### L 500.4050, L100.0100, L504.2610 ####[facility] [address] [place], [address] Nucleated RBC (Bld) [#/Vol] 0 10*3/uL Normal 0-5 [facility] Comment on above: Performed By: #### L 500.4050, L100.0100, L504.2610 ####[facility] [address] [place], [address] Platelet mean volume (Bld) [Entitic vol] 10.2 fL Normal 6.2-12.0 [facility] Comment on above: Performed By: #### L 500.4050, L100.0100, L504.2610 ####[facility] [address] [place], [address] Platelets (Bld) [#/Vol] 176 10*3/uL Normal 150-450 [facility] Comment on above: Performed By: #### L 500.4050, L100.0100, L504.2610 ####[facility] [address] [place], [address] RBC (Bld) [#/Vol] 4.40 10*6/uL Low 4.6-6.2 [facility] Comment on above: Performed By: #### L 500.4050, L100.0100, L504.2610 ####[facility] [address] [place], [address] RDW SD 51.1 fl High 35.1-43.9 [facility] Comment on above: Performed By: #### L 500.4050, L100.0100, L504.2610 ####[facility] [address] [place], [address] WBC (Bld) [#/Vol] 7.7 10*3/uL Normal 4.4-11.0 [facility] Comment on above: Performed By: #### L 500.4050, L100.0100, L504.2610 ####[facility] [address] [place], [address] Carbon dioxide, total [Moles /volume] in Central venous bloodOrdered By: Geoff Dallas on 03-04-2025 CO2 [Moles/Vol] 20.4 mmol/L Low 21.0-32.0 [facility] Chloride assayOrdered By: Dian Dallas on 03-04-2025 Chloride [Moles/Vol] 109 mmol/L High 98-108 [facility] Comprehensive Metabolic Prof ilon 03-04-2025 Albumin [Mass/Vol] 3.7 g/dL Normal 3.5-5.0 [facility] Comment on above: Performed By: #### L 500.4050, L100.0100, L504.2610 ####[facility] [address] [place], [address] Albumin/Globulin [Mass ratio] 1.3 {ratio} Normal 0.9-2.4 [facility] Comment on above: Performed By: #### L 500.4050, L100.0100, L504.2610 ####[facility] [address] [place], [address] ALK PHOS 51 U/L Normal 40-129 [facility] Comment on above: Performed By: #### L 500.4050, L100.0100, L504.2610 ####[facility] [address] [place], [address] ALT [Catalytic activity/Vol] 37 U/L Normal <=46 [facility] Comment on above: Performed By: #### L 500.4050, L100.0100, L504.2610 ####[facility] [address] [place], [address] AST [Catalytic activity/Vol] 21 U/L Normal <=37 [facility] Comment on above: Result Comment: Hemo lysis present, Results??could be affected.?? Performed By: #### L 500.4050, L100.0100, L504.2610 ####[facility] [address] [place], [address] Bilirubin [Mass/Vol] 0.18 mg/dL Normal 0.00-1.30 [facility] Comment on above: Performed By: #### L 500.4050, L100.0100, L504.2610 ####[facility] [address] [place], [address] BUN/CRE 20.0 RATIO Normal 10-20 [facility] Comment on above: Performed By: #### L 500.4050, L100.0100, L504.2610 ####[facility] [address] [place], [address] Calcium [Mass/Vol] 9.4 mg/dL Normal 7.6-11.0 [facility] Comment on above: Performed By: #### L 500.4050, L100.0100, L504.2610 ####[facility] [address] [place], [address] Chloride [Moles/Vol] 109 mmol/L High 98-108 [facility] Comment on above: Performed By: #### L 500.4050, L100.0100, L504.2610 ####[facility] [address] [place], [address] CO2 [Moles/Vol] 20.4 mmol/L Low 21.0-32.0 [facility] Comment on above: Performed By: #### L 500.4050, L100.0100, L504.2610 ####[facility] [address] [place], [address] Creatinine [Mass/Vol] 1.11 mg/dL Normal 0.70-1.20 [facility] Comment on above: Performed By: #### L 500.4050, L100.0100, L504.2610 ####[facility] [address] [place], [address] ECRCL 106.13 ml/min Normal 50-250 [facility] Comment on above: Performed By: #### L 500.4050, L100.0100, L504.2610 ####[facility] [address] [place], [address] GAP 13 Normal 5-15 [facility] Comment on above: Performed By: #### L 500.4050, L100.0100, L504.2610 ####[facility] [address] [place], [address] GFR/1.73 sq M.predicted among non-blacks MDRD (S/P/Bld) [Vol rate/Area] 81 mL/min/{1.73_m2} Normal >60 [place] Comment on above: Result Comment: mL/m in/1.73m2 CKD-EPI Creatinine Equation (2020) Performed By: #### L 500.4050, L100.0100, L504.2610 ####[facility] [address] [place], [address] Globulin (S) [Mass/Vol] 2.9 g/dL Normal 2.2-4.2 [facility] Comment on above: Performed By: #### L 500.4050, L100.0100, L504.2610 ####[facility] [address] [place], [address] Glucose [Mass/Vol] 111 mg/dL High 70-99 [facility] Comment on above: Performed By: #### L 500.4050, L100.0100, L504.2610 ####[facility] [address] [place], [address] Potassium [Moles/Vol] 3.8 mmol/L Normal 3.3-5.1 [facility] Comment on above: Result Comment: Hemo lysis present, Results??could be affected.?? Performed By: #### L 500.4050, L100.0100, L504.2610 ####[facility] [address] [place], [address] Sodium [Moles/Vol] 142 mmol/L Normal 133-145 [facility] Comment on above: Performed By: #### L 500.4050, L100.0100, L504.2610 ####[facility] [address] [place], [address] T PROT 6.6 g/dL Normal 5.9-8.4 [facility] Comment on above: Performed By: #### L 500.4050, L100.0100, L504.2610 ####[facility] [address] [place], [address] Urea nitrogen [Mass/Vol] 22 mg/dL High 4-19 [facility] Comment on above: Performed By: #### L 500.4050, L100.0100, L504.2610 ####[facility] [address] [place], [address] Eosinophil percentageOrdered By: Geoff Dallas on 03-04-2025 Eosinophils/100 WBC (Bld) 0.5 % 0-5 [facility] Erythrocyte distribution wid th ratioOrdered By: Geoff Dallas on 03-04-2025 Erythrocyte distribution width (RBC) [Ratio] 13.9 % 11.6-14.6 [facility] Erythrocyte distribution wid th standard deviationOrdered By: Geoff Dallas on 03-04-2025 Erythrocyte distribution width (RBC) [Ratio] 51.1 fl High 35.1-43.9 [facility] Glomerular filtration rate ( GFR) estimation/1.73 sq m using serum, plasma, or whole bOrdered By: Geoff Dallas on 03-04-2025 GFR/1.73 sq M.predicted among non-blacks MDRD (S/P/Bld) [Vol rate/Area] 81 mL/min/{1.73_m2} >60 [place] Comment on above: mL/min/1.73m2 CKD-EP I Creatinine Equation (2020) Hematocrit Auto (Bld) [Volum e fraction]Ordered By: Geoff Dallas on 03-04-2025 Hematocrit (Bld) [Volume fraction] 43.8 % 40-54 [facility] Hemoglobin measurementOrdere d By: Geoff Dallas on 03-04-2025 Hemoglobin (Bld) [Mass/Vol] 15.0 g/dL 13.0-16.5 [facility] Immature granulocytes/100 WB C Auto (Bld)Ordered By: Geoff Dallas on 03-04-2025 Immature granulocytes/100 WBC (Bld) 1.000 % High 0.0-0.9 [facility] Comment on above: IG% - Immature Granu locytes (promyelocytes, myelocytes and metamyelocytes) > 1% indicates that a LEFT SHIFT is Present. LDHon 03-04-2025 LDH 449 U/L High 87-241 [facility] Comment on above: Order Comment: 1 Result Comment: Hemo lysis present, Results??could be affected.?? Performed By: #### L 500.4050, L100.0100, L504.2610 ####[facility] [address] [place], [address] Laboratory - Chemistry and C hemistry - challengeOrdered By: Geoff Dallas on 03-04-2025 AST [Catalytic activity/Vol] 21 U/L <38 [facility] Comment on above: Hemolysis present, R esults could be affected. Lactate dehydrogenase (LDH) measurementOrdered By: Geoff Dallas on 03-04-2025 LDH [Catalytic activity/Vol] 449 U/L High 87-241 [facility] Comment on above: Hemolysis present, R esults could be affected. MCV (mean corpuscular volume ) determinationOrdered By: Geoff Dallas on 03-04-2025 MCV (RBC) [Entitic vol] 99.5 fL High 80-94 [facility] Mean corpuscular hemoglobin (MCH) determinationOrdered By: Geoff Dallas on 03-04-2025 MCH (RBC) [Entitic mass] 34.1 pg High 27.0-32.0 [facility] Mean corpuscular hemoglobin concentration (MCHC) determinationOrdered By: Geoff Dallas on 03-04-2025 MCHC (RBC) [Mass/Vol] 34.2 g/dL 32-36 [facility] Mean platelet volume determi nationOrdered By: Geoff Dallas on 03-04-2025 Platelet mean volume (Bld) [Entitic vol] 10.2 fL 6.2-12.0 [facility] Monocyte percentageOrdered B y: Geoff Dallas on 03-04-2025 Monocytes/100 WBC (Bld) 10.9 % High 0-10 [facility] Neutrophil percentageOrdered By: Geoff Dallas on 03-04-2025 Neutrophils/100 WBC (Bld) 66.5 % 47-70 [facility] Nucleated red blood cell per centageOrdered By: Geoff Dallas on 03-04-2025 Nucleated RBC/100 WBC (Bld) [Ratio] 0 % 0-5 [facility] Oncology Visit Reporton 02-14 Oncology Visit Report Normal [facility] Platelet countOrdered By: Dian Dallas on 03-04-2025 Platelets (Bld) [#/Vol] 176 10*3/uL 150-450 [facility] Potassium measurement (mass/ volume)Ordered By: Geoff Dallas on 03-04-2025 Potassium (Unsp spec) [Mass/Vol] 3.8 mmol/L 3.3-5.1 [facility] Comment on above: Hemolysis present, R esults could be affected. RBC Auto (Bld) [#/Vol]Ordere d By: Geoff Dallas on 03-04-2025 RBC (Bld) [#/Vol] 4.40 10*6/uL Low 4.6-6.2 [facility] Serum creatinine measurement (mass/volume)Ordered By: Geoff Dallas on 03-04-2025 Creatinine [Mass/Vol] 1.11 mg/dL 0.70-1.20 [facility] Serum globulin measurementOr dered By: Geoff Dallas on 03-04-2025 Globulin (S) [Mass/Vol] 2.9 g/dL 2.2-4.2 [facility] Serum glucose measurement (m ass/volume)Ordered By: Geoff Dallas on 03-04-2025 Glucose [Mass/Vol] 111 mg/dL High 70-99 [facility] Serum or plasma alanine hale otransferase (ALT) measurementOrdered By: Geoff Dallas on 03-04-2025 ALT [Catalytic activity/Vol] 37 U/L <47 [facility] Serum or plasma albumin marion urement (mass/volume)Ordered By: Geoff Dallas on 03-04-2025 Albumin [Mass/Vol] 3.7 g/dL 3.5-5.0 [facility] Serum or plasma albumin/glob ulin mass ratioOrdered By: Geoff Dallas on 03-04-2025 Albumin/Globulin [Mass ratio] 1.3 {ratio} 0.9-2.4 [facility] Serum or plasma alkaline jessica sphatase measurementOrdered By: Geoff Dallas on 03-04-2025 ALP [Catalytic activity/Vol] 51 U/L 40-129 [facility] Serum or plasma calcium marion urement (mass/volume)Ordered By: Geoff Dallas on 03-04-2025 Calcium [Mass/Vol] 9.4 mg/dL 7.6-11.0 [facility] Serum or plasma urea nitroge n measurement (mass/volume)Ordered By: Geoff Dallas on 03-04-2025 Urea nitrogen [Mass/Vol] 22 mg/dL High 4-19 [facility] Sodium levelOrdered By: Minh Dallas on 03-04-2025 Sodium [Moles/Vol] 142 mmol/L 133-145 [facility] Total proteinOrdered By: Miguel Dallas on 03-04-2025 Protein [Mass/Vol] 6.6 g/dL 5.9-8.4 [facility] White blood cell (WBC) count Ordered By: Geoff Dallas on 03-04-2025 WBC (Bld) [#/Vol] 7.7 10*3/uL 4.4-11.0 [facility] Venous duplex ultrasound rep ortOrdered By: Trevor Hair on 02-26-2025 US Vein [facility] [address] [place] [address] Venous Duplex US - Abhishek Extrem 02/25/25 1536 MR#: [id number] Acct: [id number] Name: LAMINE JOSEPH Rep #:[id number] : 1975 49 From: Trevor Lyle Attending Dr: Dr. Geoff Dallas MD S tatus: REG CLI Ordering Dr: Geoff Dallas MD Date: 10/10 Location: CVS Sex: M C Admitted: Reason For Study : Pulmonary embolism RIGHT LEFT GSV is normal. GSV is normal. CFV is compressible, spontaneous, phasic, competent CFV is compressible, spontaneous, phasic, competent, and demonstrates normal augmentation. and demonstrates normal augmentation. Acute deep vein thrombosis is noted in the FV, PopV, FV is compressible, spontaneous, phasic, competent T/P Trunk and PTV. Vessels are partially and demonstrates normal augmentation. noncompressible with minimal venous flow noted. POP V is compressible, spontaneous, phasic, competent RT PerV is compressible. and demonstrates normal augmentation. Procedure T/P Trunk is compressible. This is a venous duplex using B-mode, color flow and PTV is compressible. spectral Doppler. LT PerV is compressible. Exam performed in department. Compared to 01/10/2025. A preliminary report was called and/or faxed to [facility]. VL/Venous Duplex US - Abhishek Extrem Interpretation Summary Acute deep vein thrombosis noted in right femoral vein, popliteal vein, tibioperoneal trunk vein, posterior tibial vein. Deep veins of the left lower extremity are patent and compressible segmentally. There is no evidence of left lower extremity deep vein thrombosis. The bilateral great saphenous veins appear patent and compressible segmentally Ordering Physician: Geoff Dallas Performed By: Freida Ornelas RVT 02/26/25 0734 Date _ Trevor Hair MD CC: Dr. Geoff Dallas MD; No Primary Care Physician ~ Date Dictated: 02/25/25 1536 Date Transcribed: 02/26/25 0754 Bird Tender: Signed [facility] Work Phone: Oncology Visit Reporton 02-14 Oncology Visit Report Normal [facility] Venous Duplex US - Abhishek Extre mon 02-25-2025 Venous Duplex US - Abhishek Extrem Normal [facility] Absolute lymphocyte countOrd ered By: Geoff Dallas on 02-18-2025 Lymphocytes Auto (Unsp spec) [#/Vol] 0.70 10*3/uL Low 0.83-4.51 [facility] Absolute neutrophil countOrd ered By: Geoff Dallas on 02-18-2025 Neutrophils (Bld) [#/Vol] 8.2 10*3/uL High 2.0-7.7 [facility] Anion gap in Serum or Plasma Ordered By: Geoff Dallas on 02-18-2025 Anion gap [Moles/Vol] 12 mmol/L 5- [facility] Automated lymphocyte count a s percentage of total leukocytesOrdered By: Geoff Dallas on 02-18-2025 Lymphocytes/100 WBC Auto (Unsp spec) 7.2 % Low 19- [facility] BUN/creatinine ratioOrdered By: [facility] on 02-18-2025 Urea nitrogen/Creatinine [Mass ratio] 15.1 mg/mg 10- [facility] Basophil percentageOrdered B y: Goeff Dallas on 02-18-2025 Basophils/100 WBC (Bld) 0.3 % 0-1 [facility] Bilirubin, totalOrdered By: Geoff Dallas on 02-18-2025 Bilirubin [Mass/Vol] 0.28 mg/dL 0.00-1.30 [facility] CBC W/Diff, Automatedon Absolute Lymph 0.70 X10 3/uL Low 0.83-4.51 [facility] Comment on above: Performed By: #### L 504.2610, L500.4050, L100.0100 ####[facility] [address] [place], [address] Absolute Neut 8.2 X10 3/uL High 2.0-7.7 [facility] Comment on above: Performed By: #### L 504.2610, L500.4050, L100.0100 ####[facility] [address] [place], [address] Basophils/100 WBC (Bld) 0.3 % Normal 0-1 [facility] Comment on above: Performed By: #### L 504.2610, L500.4050, L100.0100 ####[facility] [address] [place], [address] Eosinophils/100 WBC (Bld) 0.2 % Normal 0-5 [facility] Comment on above: Performed By: #### L 504.2610, L500.4050, L100.0100 ####[facility] [address] [place], [address] Erythrocyte distribution width (RBC) [Ratio] 13.9 % Normal 11.6-14.6 [facility] Comment on above: Performed By: #### L 504.2610, L500.4050, L100.0100 ####[facility] [address] [place], [address] Hematocrit (Bld) [Volume fraction] 43.9 % Normal 40-54 [facility] Comment on above: Performed By: #### L 504.2610, L500.4050, L100.0100 ####[facility] [address] [place], [address] Hemoglobin (Bld) [Mass/Vol] 15.0 g/dL Normal 13.0-16.5 [facility] Comment on above: Performed By: #### L 504.2610, L500.4050, L100.0100 ####[facility] [address] [place], [address] IG% 1.300 High 0.0-0.9 [facility] Comment on above: Result Comment: IG% - Immature Granulocytes (promyelocytes, myelocytes andmetamyelocytes) > 1% indicates that a LEFT SHIFT is Present. Performed By: #### L 504.2610, L500.4050, L100.0100 ####[facility] [address] [place], [address] Lymphocytes/100 WBC (Bld) 7.2 % Low 19-41 [facility] Comment on above: Performed By: #### L 504.2610, L500.4050, L100.0100 ####[facility] [address] [place], [address] MCH (RBC) [Entitic mass] 33.6 pg High 27.0-32.0 [facility] Comment on above: Performed By: #### L 504.2610, L500.4050, L100.0100 ####[facility] [address] [place], [address] MCHC (RBC) [Mass/Vol] 34.2 g/dL Normal 32-36 [facility] Comment on above: Performed By: #### L 504.2610, L500.4050, L100.0100 ####[facility] [address] [place], [address] MCV (RBC) [Entitic vol] 98.4 fL High 80-94 [facility] Comment on above: Performed By: #### L 504.2610, L500.4050, L100.0100 ####[facility] [address] [place], [address] Monocytes/100 WBC (Bld) 6.5 % Normal 0-10 [facility] Comment on above: Performed By: #### L 504.2610, L500.4050, L100.0100 ####[facility] [address] [place], [address] Neutrophils/100 WBC (Bld) 84.5 % High 47-70 [facility] Comment on above: Performed By: #### L 504.2610, L500.4050, L100.0100 ####[facility] [address] [place], [address] Nucleated RBC (Bld) [#/Vol] 0 10*3/uL Normal 0-5 [facility] Comment on above: Performed By: #### L 504.2610, L500.4050, L100.0100 ####[facility] [address] [place], [address] Platelet mean volume (Bld) [Entitic vol] 9.6 fL Normal 6.2-12.0 [facility] Comment on above: Performed By: #### L 504.2610, L500.4050, L100.0100 ####[facility] [address] [place], [address] Platelets (Bld) [#/Vol] 199 10*3/uL Normal 150-450 [facility] Comment on above: Performed By: #### L 504.2610, L500.4050, L100.0100 ####[facility] [address] [place], [address] RBC (Bld) [#/Vol] 4.46 10*6/uL Low 4.6-6.2 [facility] Comment on above: Performed By: #### L 504.2610, L500.4050, L100.0100 ####[facility] [address] [place], [address] RDW SD 50.0 fl High 35.1-43.9 [facility] Comment on above: Performed By: #### L 504.2610, L500.4050, L100.0100 ####[facility] [address] [place], [address] WBC (Bld) [#/Vol] 9.7 10*3/uL Normal 4.4-11.0 [facility] Comment on above: Performed By: #### L 504.2610, L500.4050, L100.0100 ####[facility] [address] [place], [address] Carbon dioxide, total [Moles /volume] in Central venous bloodOrdered By: Geoff Dallas on 02-18-2025 CO2 [Moles/Vol] 21.2 mmol/L 21.0-32.0 [facility] Chloride assayOrdered By: Dian Dallas on 02-18-2025 Chloride [Moles/Vol] 105 mmol/L 98-108 [facility] Comprehensive Metabolic Prof ilon 02-18-2025 Albumin [Mass/Vol] 3.6 g/dL Normal 3.5-5.0 [facility] Comment on above: Performed By: #### L 504.2610, L500.4050, L100.0100 ####[facility] [address] [place], [address] Albumin/Globulin [Mass ratio] 1.1 {ratio} Normal 0.9-2.4 [facility] Comment on above: Performed By: #### L 504.2610, L500.4050, L100.0100 ####[facility] [address] [place], [address] ALK PHOS 58 U/L Normal 40-129 [facility] Comment on above: Performed By: #### L 504.2610, L500.4050, L100.0100 ####[facility] [address] [place], [address] ALT [Catalytic activity/Vol] 39 U/L Normal <=46 [facility] Comment on above: Performed By: #### L 504.2610, L500.4050, L100.0100 ####[facility] [address] [place], [address] AST [Catalytic activity/Vol] 18 U/L Normal <=37 [facility] Comment on above: Performed By: #### L 504.2610, L500.4050, L100.0100 ####[facility] [address] [place], [address] Bilirubin [Mass/Vol] 0.28 mg/dL Normal 0.00-1.30 [facility] Comment on above: Performed By: #### L 504.2610, L500.4050, L100.0100 ####[facility] [address] [place], [address] BUN/CRE 15.1 RATIO Normal 10-20 [facility] Comment on above: Performed By: #### L 504.2610, L500.4050, L100.0100 ####[facility] [address] [place], [address] Calcium [Mass/Vol] 9.6 mg/dL Normal 7.6-11.0 [facility] Comment on above: Performed By: #### L 504.2610, L500.4050, L100.0100 ####[facility] [address] [place], [address] Chloride [Moles/Vol] 105 mmol/L Normal 98-108 [facility] Comment on above: Performed By: #### L 504.2610, L500.4050, L100.0100 ####[facility] [address] [place], [address] CO2 [Moles/Vol] 21.2 mmol/L Normal 21.0-32.0 [facility] Comment on above: Performed By: #### L 504.2610, L500.4050, L100.0100 ####[facility] [address] [place], [address] Creatinine [Mass/Vol] 0.97 mg/dL Normal 0.70-1.20 [facility] Comment on above: Performed By: #### L 504.2610, L500.4050, L100.0100 ####[facility] [address] [place], [address] ECRCL 120.83 ml/min Normal 50-250 [facility] Comment on above: Performed By: #### L 504.2610, L500.4050, L100.0100 ####[facility] [address] [place], [address] GAP 12 Normal 5-15 [facility] Comment on above: Performed By: #### L 504.2610, L500.4050, L100.0100 ####[facility] [address] [place], [address] GFR/1.73 sq M.predicted among non-blacks MDRD (S/P/Bld) [Vol rate/Area] 95 mL/min/{1.73_m2} Normal >60 [place] Comment on above: Result Comment: mL/m in/1.73m2 CKD-EPI Creatinine Equation (2020) Performed By: #### L 504.2610, L500.4050, L100.0100 ####[facility] [address] [place], [address] Globulin (S) [Mass/Vol] 3.3 g/dL Normal 2.2-4.2 [facility] Comment on above: Performed By: #### L 504.2610, L500.4050, L100.0100 ####[facility] [address] [place], [address] Glucose [Mass/Vol] 114 mg/dL High 70-99 [facility] Comment on above: Performed By: #### L 504.2610, L500.4050, L100.0100 ####[facility] [address] [place], [address] Potassium [Moles/Vol] 3.8 mmol/L Normal 3.3-5.1 [facility] Comment on above: Performed By: #### L 504.2610, L500.4050, L100.0100 ####[facility] [address] [place], [address] Sodium [Moles/Vol] 139 mmol/L Normal 133-145 [facility] Comment on above: Performed By: #### L 504.2610, L500.4050, L100.0100 ####[facility] [address] [place], [address] T PROT 6.9 g/dL Normal 5.9-8.4 [facility] Comment on above: Performed By: #### L 504.2610, L500.4050, L100.0100 ####[facility] [address] [place], [address] Urea nitrogen [Mass/Vol] 15 mg/dL Normal 4-19 [facility] Comment on above: Performed By: #### L 504.2610, L500.4050, L100.0100 ####[facility] [address] [place], [address] Eosinophil percentageOrdered By: Geoff Dallas on 02-18-2025 Eosinophils/100 WBC (Bld) 0.2 % 0-5 [facility] Erythrocyte distribution wid th ratioOrdered By: Geoff Dallas on 02-18-2025 Erythrocyte distribution width (RBC) [Ratio] 13.9 % 11.6-14.6 [facility] Erythrocyte distribution wid th standard deviationOrdered By: Geoff Dallas on 02-18-2025 Erythrocyte distribution width (RBC) [Ratio] 50.0 fl High 35.1-43.9 [facility] Glomerular filtration rate ( GFR) estimation/1.73 sq m using serum, plasma, or whole bOrdered By: Geoff Dallas on 02-18-2025 GFR/1.73 sq M.predicted among non-blacks MDRD (S/P/Bld) [Vol rate/Area] 95 mL/min/{1.73_m2} >60 [place] Comment on above: mL/min/1.73m2 CKD-EP I Creatinine Equation (2020) Hematocrit Auto (Bld) [Volum e fraction]Ordered By: Geoff Dallas on 02-18-2025 Hematocrit (Bld) [Volume fraction] 43.9 % 40-54 [facility] Hemoglobin measurementOrdere d By: Geoff Dallas on 02-18-2025 Hemoglobin (Bld) [Mass/Vol] 15.0 g/dL 13.0-16.5 [facility] Immature granulocytes/100 WB C Auto (Bld)Ordered By: Geoff Dallas on 02-18-2025 Immature granulocytes/100 WBC (Bld) 1.300 % High 0.0-0.9 [facility] Comment on above: IG% - Immature Granu locytes (promyelocytes, myelocytes and metamyelocytes) > 1% indicates that a LEFT SHIFT is Present. LDHon 02-18-2025 LDH 390 U/L High 87-241 [facility] Comment on above: Order Comment: 1 Performed By: #### L 504.2610, L500.4050, L100.0100 ####[facility] [address] [place], [address] Laboratory - Chemistry and C hemistry - challengeOrdered By: Geoff Dallas on 02-18-2025 AST [Catalytic activity/Vol] 18 U/L <38 [facility] Lactate dehydrogenase (LDH) measurementOrdered By: Geoff Dallas on 02-18-2025 LDH [Catalytic activity/Vol] 390 U/L High 87-241 [facility] MCV (mean corpuscular volume ) determinationOrdered By: Geoff Dallas on 02-18-2025 MCV (RBC) [Entitic vol] 98.4 fL High 80-94 [facility] Mean corpuscular hemoglobin (MCH) determinationOrdered By: Geoff Dallas on 02-18-2025 MCH (RBC) [Entitic mass] 33.6 pg High 27.0-32.0 [facility] Mean corpuscular hemoglobin concentration (MCHC) determinationOrdered By: Geoff Dallas on 02-18-2025 MCHC (RBC) [Mass/Vol] 34.2 g/dL 32-36 [facility] Mean platelet volume determi nationOrdered By: Geoff Dallas on 02-18-2025 Platelet mean volume (Bld) [Entitic vol] 9.6 fL 6.2-12.0 [facility] Monocyte percentageOrdered B y: Geoff Dallas on 02-18-2025 Monocytes/100 WBC (Bld) 6.5 % 0-10 [facility] Neutrophil percentageOrdered By: Geoff Dallas on 02-18-2025 Neutrophils/100 WBC (Bld) 84.5 % High 47-70 [facility] Nucleated red blood cell per centageOrdered By: Geoff Dallas on 02-18-2025 Nucleated RBC/100 WBC (Bld) [Ratio] 0 % 0-5 [facility] Oncology Visit Reporton 05-0 Oncology Visit Report Normal [facility] Platelet countOrdered By: Dian Dallas on 02-18-2025 Platelets (Bld) [#/Vol] 199 10*3/uL 150-450 [facility] Potassium measurement (mass/ volume)Ordered By: Geoff Dallas on 02-18-2025 Potassium (Unsp spec) [Mass/Vol] 3.8 mmol/L 3.3-5.1 [facility] RBC Auto (Bld) [#/Vol]Ordere d By: Geoff Dallas on 02-18-2025 RBC (Bld) [#/Vol] 4.46 10*6/uL Low 4.6-6.2 [facility] Serum creatinine measurement (mass/volume)Ordered By: Geoff Dallas on 02-18-2025 Creatinine [Mass/Vol] 0.97 mg/dL 0.70-1.20 [facility] Serum globulin measurementOr dered By: Geoff Dallas on 02-18-2025 Globulin (S) [Mass/Vol] 3.3 g/dL 2.2-4.2 [facility] [facility] Serum glucose measurement (m ass/volume)Ordered By: Geoff Dallas on 02-18-2025 Glucose [Mass/Vol] 114 mg/dL High 70-99 [facility] Serum or plasma alanine hale otransferase (ALT) measurementOrdered By: Geoff Dallas on 02-18-2025 ALT [Catalytic activity/Vol] 39 U/L <47 [facility] Serum or plasma albumin marion urement (mass/volume)Ordered By: Geoff Dallas on 02-18-2025 Albumin [Mass/Vol] 3.6 g/dL 3.5-5.0 [facility] Serum or plasma albumin/glob ulin mass ratioOrdered By: Geoff Dallas on 02-18-2025 Albumin/Globulin [Mass ratio] 1.1 {ratio} 0.9-2.4 [facility] Serum or plasma alkaline jessica sphatase measurementOrdered By: Geoff Dallas on 02-18-2025 ALP [Catalytic activity/Vol] 58 U/L 40-129 [facility] Serum or plasma calcium marion urement (mass/volume)Ordered By: Geoff Dallas on 02-18-2025 Calcium [Mass/Vol] 9.6 mg/dL 7.6-11.0 [facility] Serum or plasma urea nitroge n measurement (mass/volume)Ordered By: Geoff Dallas on 02-18-2025 Urea nitrogen [Mass/Vol] 15 mg/dL 4-19 [facility] Sodium levelOrdered By: Minh Dallas on 02-18-2025 Sodium [Moles/Vol] 139 mmol/L 133-145 [facility] Total proteinOrdered By: Miguel Dallas on 02-18-2025 Protein [Mass/Vol] 6.9 g/dL 5.9-8.4 [facility] White blood cell (WBC) count Ordered By: Geoff Dallas on 02-18-2025 WBC (Bld) [#/Vol] 9.7 10*3/uL 4.4-11.0 [facility] Brain W/WO Contraston 2024 Brain W/WO Contrast Normal [facility] Chest PA and Lateralon 02-12 Chest PA and Lateral Normal [facility] Care Visit Reporton 0 02-12-2025 Urgent Care Visit Report Normal [facility] CBC W/Diff, Automatedon 01-16 Absolute Lymph 0.89 X10 3/uL Normal 0.83-4.51 [facility] Comment on above: Performed By: #### L 504.2610, L100.0100, L500.4050 ####[facility] [address] [place], [place], [id number] Absolute Neut 9.3 X10 3/uL High 2.0-7.7 [facility] Comment on above: Performed By: #### L 504.2610, L100.0100, L500.4050 ####[facility] [address] [place], [address] Basophils/100 WBC (Bld) 0.4 % Normal 0-1 [facility] Comment on above: Performed By: #### L 504.2610, L100.0100, L500.4050 ####[facility] [address] [place], [address] Eosinophils/100 WBC (Bld) 0.1 % Normal 0-5 [facility] Comment on above: Performed By: #### L 504.2610, L100.0100, L500.4050 ####[facility] [address] [place], [address] Erythrocyte distribution width (RBC) [Ratio] 13.7 % Normal 11.6-14.6 [facility] Comment on above: Performed By: #### L 504.2610, L100.0100, L500.4050 ####[facility] [address] [place], [address] Hematocrit (Bld) [Volume fraction] 43.0 % Normal 40-54 [facility] Comment on above: Performed By: #### L 504.2610, L100.0100, L500.4050 ####[facility] [address] [place], [address] Hemoglobin (Bld) [Mass/Vol] 14.6 g/dL Normal 13.0-16.5 [facility] Comment on above: Performed By: #### L 504.2610, L100.0100, L500.4050 ####[facility] [address] [place], [address] IG% 1.300 High 0.0-0.9 [facility] Comment on above: Result Comment: IG% - Immature Granulocytes (promyelocytes, myelocytes andmetamyelocytes) > 1% indicates that a LEFT SHIFT is Present. Performed By: #### L 504.2610, L100.0100, L500.4050 ####[facility] [address] [place], [address] Lymphocytes/100 WBC (Bld) 8.0 % Low 19-41 [facility] Comment on above: Performed By: #### L 504.2610, L100.0100, L500.4050 ####[facility] [address] [place], [address] MCH (RBC) [Entitic mass] 33.6 pg High 27.0-32.0 [facility] Comment on above: Performed By: #### L 504.2610, L100.0100, L500.4050 ####[facility] [address] [place], [address] MCHC (RBC) [Mass/Vol] 34.0 g/dL Normal 32-36 [facility] Comment on above: Performed By: #### L 504.2610, L100.0100, L500.4050 ####[facility] [address] [place], [address] MCV (RBC) [Entitic vol] 99.1 fL High 80-94 [facility] Comment on above: Performed By: #### L 504.2610, L100.0100, L500.4050 ####[facility] [address] [place], [address] Monocytes/100 WBC (Bld) 6.8 % Normal 0-10 [facility] Comment on above: Performed By: #### L 504.2610, L100.0100, L500.4050 ####[facility] [address] [place], [address] Neutrophils/100 WBC (Bld) 83.4 % High 47-70 [facility] Comment on above: Performed By: #### L 504.2610, L100.0100, L500.4050 ####[facility] [address] [place], [address] Nucleated RBC (Bld) [#/Vol] 0 10*3/uL Normal 0-5 [facility] Comment on above: Performed By: #### L 504.2610, L100.0100, L500.4050 ####[facility] [address] [place], [address] Platelet mean volume (Bld) [Entitic vol] 10.2 fL Normal 6.2-12.0 [facility] Comment on above: Performed By: #### L 504.2610, L100.0100, L500.4050 ####[facility] [address] [place], [address] Platelets (Bld) [#/Vol] 217 10*3/uL Normal 150-450 [facility] Comment on above: Performed By: #### L 504.2610, L100.0100, L500.4050 ####[facility] [address] [place], [address] RBC (Bld) [#/Vol] 4.34 10*6/uL Low 4.6-6.2 [facility] Comment on above: Performed By: #### L 504.2610, L100.0100, L500.4050 ####[facility] [address] [place], [address] RDW SD 49.8 fl High 35.1-43.9 [facility] Comment on above: Performed By: #### L 504.2610, L100.0100, L500.4050 ####[facility] [address] [place], [address] WBC (Bld) [#/Vol] 11.2 10*3/uL High 4.4-11.0 [facility] Comment on above: Performed By: #### L 504.2610, L100.0100, L500.4050 ####[facility] [address] [place], [address] Comprehensive Metabolic Prof wvon 02-04-2025 Albumin [Mass/Vol] 3.6 g/dL Normal 3.5-5.0 [facility] Comment on above: Performed By: #### L 504.2610, L100.0100, L500.4050 ####[facility] [address] [place], [address] Albumin/Globulin [Mass ratio] 1.1 {ratio} Normal 0.9-2.4 [facility] Comment on above: Performed By: #### L 504.2610, L100.0100, L500.4050 ####[facility] [address] [place], [address] ALK PHOS 65 U/L Normal 40-129 [facility] Comment on above: Performed By: #### L 504.2610, L100.0100, L500.4050 ####[facility] [address] [place], [address] ALT [Catalytic activity/Vol] 33 U/L Normal <=46 [facility] Comment on above: Performed By: #### L 504.2610, L100.0100, L500.4050 ####[facility] [address] [place], [address] AST [Catalytic activity/Vol] 20 U/L Normal <=37 [facility] Comment on above: Result Comment: Hemo lysis present, Results??could be affected.?? Performed By: #### L 504.2610, L100.0100, L500.4050 ####[facility] [address] [place], [address] Bilirubin [Mass/Vol] 0.21 mg/dL Normal 0.00-1.30 [facility] Comment on above: Performed By: #### L 504.2610, L100.0100, L500.4050 ####[facility] [address] [place], [address] BUN/CRE 18.2 RATIO Normal 10-20 [facility] Comment on above: Performed By: #### L 504.2610, L100.0100, L500.4050 ####[facility] [address] [place], [address] Calcium [Mass/Vol] 9.2 mg/dL Normal 7.6-11.0 [facility] Comment on above: Performed By: #### L 504.2610, L100.0100, L500.4050 ####[facility] [address] [place], [address] Chloride [Moles/Vol] 103 mmol/L Normal 98-108 [facility] Comment on above: Performed By: #### L 504.2610, L100.0100, L500.4050 ####[facility] [address] [place], [address] CO2 [Moles/Vol] 20.7 mmol/L Low 21.0-32.0 [facility] Comment on above: Performed By: #### L 504.2610, L100.0100, L500.4050 ####[facility] [address] [place], [address] Creatinine [Mass/Vol] 0.84 mg/dL Normal 0.70-1.20 [facility] Comment on above: Performed By: #### L 504.2610, L100.0100, L500.4050 ####[facility] [address] [place], [address] ECRCL 138.35 ml/min Normal 50-250 [facility] Comment on above: Performed By: #### L 504.2610, L100.0100, L500.4050 ####[facility] [address] [place], [address] GAP 12 Normal 5-15 [facility] Comment on above: Performed By: #### L 504.2610, L100.0100, L500.4050 ####[facility] [address] [place], [address] GFR/1.73 sq M.predicted among non-blacks MDRD (S/P/Bld) [Vol rate/Area] 106 mL/min/{1.73_m2} Normal >60 [facility] Comment on above: Result Comment: mL/m in/1.73m2 CKD-EPI Creatinine Equation (2020) Performed By: #### L 504.2610, L100.0100, L500.4050 ####[facility] [address] [place], [address] Globulin (S) [Mass/Vol] 3.2 g/dL Normal 2.2-4.2 [facility] Comment on above: Performed By: #### L 504.2610, L100.0100, L500.4050 ####[facility] [address] [place], [address] Glucose [Mass/Vol] 103 mg/dL High 70-99 [facility] Comment on above: Performed By: #### L 504.2610, L100.0100, L500.4050 ####[facility] [address] [place], [address] Potassium [Moles/Vol] 4.4 mmol/L Normal 3.3-5.1 [facility] Comment on above: Result Comment: Hemo lysis present, Results??could be affected.?? Performed By: #### L 504.2610, L100.0100, L500.4050 ####[facility] [address] [place], [address] Sodium [Moles/Vol] 136 mmol/L Normal 133-145 [facility] Comment on above: Performed By: #### L 504.2610, L100.0100, L500.4050 ####[facility] [address] [place], [address] T PROT 6.8 g/dL Normal 5.9-8.4 [facility] Comment on above: Performed By: #### L 504.2610, L100.0100, L500.4050 ####[facility] [address] [place], [address] Urea nitrogen [Mass/Vol] 15 mg/dL Normal 4-19 [facility] Comment on above: Performed By: #### L 504.2610, L100.0100, L500.4050 ####[facility] [address] [place], [address] LDHon 02-04-2025 LDH 463 U/L High 87-241 [facility] Comment on above: Order Comment: 1 Result Comment: Hemo lysis present, Results??could be affected.?? Performed By: #### L 504.2610, L100.0100, L500.4050 ####[facility] [address] [place], [address] Oncology Visit Reporton 01-16 Oncology Visit Report Normal [facility] CBC W/Diff, Automatedon 01-15 PATH REV Reviewed Normal [facility] Comment on above: Result Comment: SEE REPORT IN PATIENT'S EMR AMENDED REPORT 01/29/25 1544 PATH REV previously reported as: February mickie Performed By: #### L 500.3400, L503.6005, L501.2450, L500.2500, L100.0100 ####[facility] [address] [place], [address] Absolute neutrophil countOrd ered By: Geoff Dallas on 01-24-2025 Neutrophils (Bld) [#/Vol] 10.0 10*3/uL High 2.0-7.7 [facility] Anion gap in Serum or Plasma Ordered By: Geoff Dallas on 01-24-2025 Anion gap [Moles/Vol] 12 mmol/L 5-15 [facility] BUN/creatinine ratioOrdered By: Geoff Dallas on 01-24-2025 Urea nitrogen/Creatinine [Mass ratio] 17.9 mg/mg 10- [facility] Basophil percentageOrdered B y: Geoff Dallas on 01-24-2025 Basophils/100 WBC (Bld) 0.6 % 0-1 [facility] Bilirubin, totalOrdered By: Geoff Dallas on 01-24-2025 Bilirubin [Mass/Vol] 0.24 mg/dL 0.00-1.30 [facility] CBC W/Diff, Automatedon 01-15 0 Absolute Lymph 0.54 X10 3/uL Low 0.83-4.51 [facility] Comment on above: Performed By: #### L 504.2610, L500.4050, L100.0100 ####[facility] [address] [place], [address] Absolute Neut 10.0 X10 3/uL High 2.0-7.7 [facility] Comment on above: Performed By: #### L 504.2610, L500.4050, L100.0100 ####[facility] [address] [place], [address] Basophils/100 WBC (Bld) 0.6 % Normal 0-1 [facility] Comment on above: Performed By: #### L 504.2610, L500.4050, L100.0100 ####[facility] [address] [place], [address] Eosinophils/100 WBC (Bld) 0.2 % Normal 0-5 [facility] Comment on above: Performed By: #### L 504.2610, L500.4050, L100.0100 ####[facility] [address] [place], [address] Erythrocyte distribution width (RBC) [Ratio] 13.9 % Normal 11.6-14.6 [facility] Comment on above: Performed By: #### L 504.2610, L500.4050, L100.0100 ####[facility] [address] [place], [address] Hematocrit (Bld) [Volume fraction] 43.7 % Normal 40-54 [facility] Comment on above: Performed By: #### L 504.2610, L500.4050, L100.0100 ####[facility] [address] [place], [address] Hemoglobin (Bld) [Mass/Vol] 14.7 g/dL Normal 13.0-16.5 [facility] Comment on above: Performed By: #### L 504.2610, L500.4050, L100.0100 ####[facility] [address] [place], [address] IG% 1.700 High 0.0-0.9 [facility] Comment on above: Result Comment: IG% - Immature Granulocytes (promyelocytes, myelocytes andmetamyelocytes) > 1% indicates that a LEFT SHIFT is Present. Performed By: #### L 504.2610, L500.4050, L100.0100 ####[facility] [address] [place], [address] Lymphocytes/100 WBC (Bld) 4.8 % Low 19-41 [facility] Comment on above: Performed By: #### L 504.2610, L500.4050, L100.0100 ####[facility] [address] [place], [address] MCH (RBC) [Entitic mass] 34.3 pg High 27.0-32.0 [facility] Comment on above: Performed By: #### L 504.2610, L500.4050, L100.0100 ####[facility] [address] [place], [address] MCHC (RBC) [Mass/Vol] 33.6 g/dL Normal 32-36 [facility] Comment on above: Performed By: #### L 504.2610, L500.4050, L100.0100 ####[facility] [address] [place], [address] MCV (RBC) [Entitic vol] 102.1 fL High 80-94 [facility] Comment on above: Performed By: #### L 504.2610, L500.4050, L100.0100 ####[facility] [address] [place], [address] Monocytes/100 WBC (Bld) 4.3 % Normal 0-10 [facility] Comment on above: Performed By: #### L 504.2610, L500.4050, L100.0100 ####[facility] [address] [place], [address] Neutrophils/100 WBC (Bld) 88.4 % High 47-70 [facility] Comment on above: Performed By: #### L 504.2610, L500.4050, L100.0100 ####[facility] [address] [place], [address] Nucleated RBC (Bld) [#/Vol] 0 10*3/uL Normal 0-5 [facility] Comment on above: Performed By: #### L 504.2610, L500.4050, L100.0100 ####[facility] [address] [place], [address] Platelet mean volume (Bld) [Entitic vol] 9.3 fL Normal 6.2-12.0 [facility] Comment on above: Performed By: #### L 504.2610, L500.4050, L100.0100 ####[facility] [address] [place], [address] Platelets (Bld) [#/Vol] 285 10*3/uL Normal 150-450 [facility] Comment on above: Performed By: #### L 504.2610, L500.4050, L100.0100 ####[facility] [address] [place], [address] RBC (Bld) [#/Vol] 4.28 10*6/uL Low 4.6-6.2 [facility] Comment on above: Performed By: #### L 504.2610, L500.4050, L100.0100 ####[facility] [address] [place], [address] RDW SD 52.4 fl High 35.1-43.9 [facility] Comment on above: Performed By: #### L 504.2610, L500.4050, L100.0100 ####[facility] [address] [place], [address] WBC (Bld) [#/Vol] 11.3 10*3/uL High 4.4-11.0 [facility] Comment on above: Performed By: #### L 504.2610, L500.4050, L100.0100 ####[facility] [address] [place], [address] Carbon dioxide, total [Moles /volume] in Central venous bloodOrdered By: Geoff Dallas on 01-24-2025 CO2 [Moles/Vol] 22.2 mmol/L 21.0-32.0 [facility] Chloride assayOrdered By: Dian Dallas on 01-24-2025 Chloride [Moles/Vol] 103 mmol/L 98-108 [facility] Comprehensive Metabolic Prof ilon 01-24-2025 Albumin [Mass/Vol] 3.6 g/dL Normal 3.5-5.0 [facility] Comment on above: Performed By: #### L 504.2610, L500.4050, L100.0100 ####[facility] [address] [place], [address] Albumin/Globulin [Mass ratio] 1.0 {ratio} Normal 0.9-2.4 [facility] Comment on above: Performed By: #### L 504.2610, L500.4050, L100.0100 ####[facility] [address] [place], [address] ALK PHOS 70 U/L Normal 40-129 [facility] Comment on above: Performed By: #### L 504.2610, L500.4050, L100.0100 ####[facility] [address] [place], [address] ALT [Catalytic activity/Vol] 41 U/L Normal <=46 [facility] Comment on above: Performed By: #### L 504.2610, L500.4050, L100.0100 ####[facility] [address] [place], [address] AST [Catalytic activity/Vol] 18 U/L Normal <=37 [facility] Comment on above: Performed By: #### L 504.2610, L500.4050, L100.0100 ####[facility] [address] [place], [address] Bilirubin [Mass/Vol] 0.24 mg/dL Normal 0.00-1.30 [facility] Comment on above: Performed By: #### L 504.2610, L500.4050, L100.0100 ####[facility] [address] [place], [address] BUN/CRE 17.9 RATIO Normal 10-20 [facility] Comment on above: Performed By: #### L 504.2610, L500.4050, L100.0100 ####[facility] [address] [place], [address] Calcium [Mass/Vol] 9.7 mg/dL Normal 7.6-11.0 [facility] Comment on above: Performed By: #### L 504.2610, L500.4050, L100.0100 ####[facility] [address] [place], [address] Chloride [Moles/Vol] 103 mmol/L Normal 98-108 [facility] Comment on above: Performed By: #### L 504.2610, L500.4050, L100.0100 ####[facility] [address] [place], [address] CO2 [Moles/Vol] 22.2 mmol/L Normal 21.0-32.0 [facility] Comment on above: Performed By: #### L 504.2610, L500.4050, L100.0100 ####[facility] [address] [place], [address] Creatinine [Mass/Vol] 0.96 mg/dL Normal 0.70-1.20 [facility] Comment on above: Performed By: #### L 504.2610, L500.4050, L100.0100 ####[facility] [address] [place], [address] ECRCL 119.67 ml/min Normal 50-250 [facility] Comment on above: Performed By: #### L 504.2610, L500.4050, L100.0100 ####[facility] [address] [place], [address] GAP 12 Normal 5-15 [facility] Comment on above: Performed By: #### L 504.2610, L500.4050, L100.0100 ####[facility] [address] [place], [address] GFR/1.73 sq M.predicted among non-blacks MDRD (S/P/Bld) [Vol rate/Area] 96 mL/min/{1.73_m2} Normal >60 [place] Comment on above: Result Comment: mL/m in/1.73m2 CKD-EPI Creatinine Equation (2020) Performed By: #### L 504.2610, L500.4050, L100.0100 ####[facility] [address] [place], [address] Globulin (S) [Mass/Vol] 3.7 g/dL Normal 2.2-4.2 [facility] Comment on above: Performed By: #### L 504.2610, L500.4050, L100.0100 ####[facility] [address] [place], [address] Glucose [Mass/Vol] 114 mg/dL High 70-99 [facility] Comment on above: Performed By: #### L 504.2610, L500.4050, L100.0100 ####[facility] [address] [place], [address] Potassium [Moles/Vol] 4.3 mmol/L Normal 3.3-5.1 [facility] Comment on above: Performed By: #### L 504.2610, L500.4050, L100.0100 ####[facility] [address] [place], [address] Sodium [Moles/Vol] 137 mmol/L Normal 133-145 [facility] Comment on above: Performed By: #### L 504.2610, L500.4050, L100.0100 ####[facility] [address] [place], [address] T PROT 7.3 g/dL Normal 5.9-8.4 [facility] Comment on above: Performed By: #### L 504.2610, L500.4050, L100.0100 ####[facility] [address] [place], [address] Urea nitrogen [Mass/Vol] 17 mg/dL Normal 4-19 [facility] Comment on above: Performed By: #### L 504.2610, L500.4050, L100.0100 ####[facility] [address] [place], [address] Eosinophil percentageOrdered By: Geoff Dallas on 01-24-2025 Eosinophils/100 WBC (Bld) 0.2 % 0-5 [facility] Erythrocyte distribution wid th (RBC) [Ratio]Ordered By: Geoff Dallas on 01-24-2025 Erythrocyte distribution width (RBC) [Entitic vol] 52.4 fL High 35.1-43.9 [facility] Erythrocyte distribution wid th ratioOrdered By: Geoff Dallas on 01-24-2025 Erythrocyte distribution width (RBC) [Ratio] 13.9 % 11.6-14.6 [facility] Estimation of creatinine feliciano aranceOrdered By: Geoff Dallas on 01-24-2025 Estimated Creatinine Clearance Calc 119.67 ml/min 50-250 [facility] GFR/1.73 sq M.predicted erwin g non-blacks MDRD (S/P/Bld) [Vol rate/Area]Ordered By: Geoff Dallas on 01-24-2025 Estimated GFR (MDRD) Non-Af Amer 96 >60 [facility] Comment on above: mL/min/1.73m2 CKD-EP I Creatinine Equation (2020) Hematocrit Auto (Bld) [Volum e fraction]Ordered By: Geoff Dallas on 01-24-2025 Hematocrit (Bld) [Volume fraction] 43.7 % 40-54 [facility] Hemoglobin measurementOrdere d By: Geoff Dallas on 01-24-2025 Hemoglobin (Bld) [Mass/Vol] 14.7 g/dL 13.0-16.5 [facility] Immature granulocytes/100 WB C Auto (Bld)Ordered By: Geoff Dallas on 01-24-2025 Immature granulocytes/100 WBC (Bld) 1.700 % High 0.0-0.9 [facility] Comment on above: IG% - Immature Granu locytes (promyelocytes, myelocytes and metamyelocytes) > 1% indicates that a LEFT SHIFT is Present. LDHon 01-24-2025 LDH 353 U/L High 87-241 [facility] Comment on above: Order Comment: 1 Performed By: #### L 504.2610, L500.4050, L100.0100 ####[facility] [address] [place], [address] Laboratory - Chemistry and C hemistry - challengeOrdered By: [facility]-2025 AST [Catalytic activity/Vol] 18 U/L <38 [facility] Lactate dehydrogenase (LDH) measurementOrdered By: [facility] on 01-24-2025 LDH [Catalytic activity/Vol] 353 U/L High 87-241 [facility] Lymphocytes Auto (Unsp spec) [#/Vol]Ordered By: Geoff Dallas on 01-24-2025 Lymphocytes (Bld) [#/Vol] 0.54 10*3/uL Low 0.83-4.5 1 [facility] Lymphocytes/100 WBC Auto (Un sp spec)Ordered By: Geoff Dallas on 01-24-2025 Lymphocytes/100 WBC (Bld) 4.8 % Low 19-41 [facility] MCV (mean corpuscular volume ) determinationOrdered By: Geoff Dallas on 01-24-2025 MCV (RBC) [Entitic vol] 102.1 fL High 80-94 [facility] Mean corpuscular hemoglobin (MCH) determinationOrdered By: Geoff Dallas on 01-24-2025 MCH (RBC) [Entitic mass] 34.3 pg High 27.0-32.0 [facility] Mean corpuscular hemoglobin concentration (MCHC) determinationOrdered By: Geoff [facility] on 01-24-2025 MCHC (RBC) [Mass/Vol] 33.6 g/dL 32-36 [facility] Mean platelet volume determi nationOrdered By: Geoff Dallas on 01-24-2025 Platelet mean volume (Bld) [Entitic vol] 9.3 fL 6.2-12.0 [facility] Monocyte percentageOrdered B y: Geoff Dallas on 01-24-2025 Monocytes/100 WBC (Bld) 4.3 % 0-10 [facility] Neutrophil percentageOrdered By: Geoff Dallas on 01-24-2025 Neutrophils/100 WBC (Bld) 88.4 % High 47-70 [facility] Nucleated red blood cell per centageOrdered By: Geoff Dallas on 01-24-2025 Nucleated RBC/100 WBC (Bld) [Ratio] 0 % 0-5 [facility] Oncology Visit Reporton 01-15 0-2024 Oncology Visit Report Normal [facility] Platelet countOrdered By: Dian Dallas on 01-24-2025 Platelets (Bld) [#/Vol] 285 10*3/uL 150-450 [facility] Potassium (Unsp spec) [Mass/ Vol]Ordered By: Geoff Dallas on 01-24-2025 Potassium [Moles/Vol] 4.3 mmol/L 3.3-5.1 [facility] RBC Auto (Bld) [#/Vol]Ordere d By: Geoff Dallas on 01-24-2025 RBC (Bld) [#/Vol] 4.28 10*6/uL Low 4.6-6.2 [facility] Serum creatinine measurement (mass/volume)Ordered By: Geoff Dallas on 01-24-2025 Creatinine [Mass/Vol] 0.96 mg/dL 0.70-1.20 [facility] Serum globulin measurementOr dered By: Geoff Dallas on 01-24-2025 Globulin (S) [Mass/Vol] 3.7 g/dL 2.2-4.2 [facility] Serum glucose measurement (m ass/volume)Ordered By: Geoff Dallas on 01-24-2025 Glucose [Mass/Vol] 114 mg/dL High 70-99 [facility] Serum or plasma alanine hale otransferase (ALT) measurementOrdered By: Geoff Dallas on 01-24-2025 ALT [Catalytic activity/Vol] 41 U/L <47 [facility] Serum or plasma albumin marion urement (mass/volume)Ordered By: Geoff Dallas on 01-24-2025 Albumin [Mass/Vol] 3.6 g/dL 3.5-5.0 [facility] Serum or plasma albumin/glob ulin mass ratioOrdered By: Geoff Dallas on 01-24-2025 Albumin/Globulin [Mass ratio] 1.0 {ratio} 0.9-2.4 [facility] Serum or plasma alkaline jessica sphatase measurementOrdered By: Geoff Dallas on 01-24-2025 ALP [Catalytic activity/Vol] 70 U/L 40-129 [facility] Serum or plasma calcium marion urement (mass/volume)Ordered By: Geoff Dallas on 01-24-2025 Calcium [Mass/Vol] 9.7 mg/dL 7.6-11.0 [facility] Serum or plasma urea nitroge n measurement (mass/volume)Ordered By: Geoff Dallas on 01-24-2025 Urea nitrogen [Mass/Vol] 17 mg/dL 4-19 [facility] Sodium levelOrdered By: Minh Dallas on 01-24-2025 Sodium [Moles/Vol] 137 mmol/L 133-145 [facility] Total proteinOrdered By: Miguel Dallas on 01-24-2025 Protein [Mass/Vol] 7.3 g/dL 5.9-8.4 [facility] White blood cell (WBC) count Ordered By: Geoff Dallas on 01-24-2025 WBC (Bld) [#/Vol] 11.3 10*3/uL High 4.4-11.0 [facility] Abdomen/Pelvis W IV Cont ONL Yon 01-17-2025 Abdomen/Pelvis W IV Cont ONLY Normal [facility] Absolute lymphocyte countOrd ered By: Ye Sparks on 01-17-2025 Lymphocytes Auto (Unsp spec) [#/Vol] 1.21 10*3/uL 0.83-4.51 [facility] Absolute neutrophil countOrd ered By: Ye Sparks on 01-17-2025 Neutrophils (Bld) [#/Vol] 13.8 10*3/uL High 2.0-7.7 [facility] Anion gap in Serum or Plasma Ordered By: Ye Sparks on 01-17-2025 Anion gap [Moles/Vol] 15 mmol/L 5-15 [facility] Automated lymphocyte count a s percentage of total leukocytesOrdered By: Ye Sparks on 01-17-2025 Lymphocytes/100 WBC Auto (Unsp spec) 7.0 % Low 19-41 [facility] BUN/creatinine ratioOrdered By: Ye Sparks on 01-17-2025 Urea nitrogen/Creatinine [Mass ratio] 19.1 mg/mg 10-20 [facility] Basic Metabolic Profile (BMP )on 01-17-2025 BUN/CRE 19.1 RATIO Normal 10-20 [facility] Comment on above: Performed By: #### L 500.3400, L503.6005, L501.2450, L500.2500, L100.0100 ####[facility] [address] [place], [address] ECRCL 111.38 ml/min Normal 50-250 [facility] Comment on above: Performed By: #### L 500.3400, L503.6005, L501.2450, L500.2500, L100.0100 ####[facility] [address] [place], [address] GAP 15 Normal 5-15 [facility] Comment on above: Performed By: #### L 500.3400, L503.6005, L501.2450, L500.2500, L100.0100 ####[facility] [address] [place], [place], [id number] Basophil percentageOrdered B y: Ye Sparks on 01-17-2025 Basophils/100 WBC (Bld) 0.4 % 0-1 [facility] Bilirubin Test strip Ql (U)O rdered By: Ye Sparks on 01-17-2025 Bilirubin Ql (U) Negative Negative [facility] Bilirubin directOrdered By: Yeabdon FernándezKsenia on 01-17-2025 Bilirubin.direct [Mass/Vol] mg/dL 0.00-0.30 [facility] Comment on above: Hemolysis present, R esults could be affected. Bilirubin, totalOrdered By: Ye Sparks on 01-17-2025 Bilirubin [Mass/Vol] 0.43 mg/dL Normal 0.00-1.30 [facility] Comment on above: Performed By: #### L 500.3400, L503.6005, L501.2450, L500.2500, L100.0100 ####[facility] [address] [place], [address] Bilirubin.direct [Mass/Vol]O rdered By: Ye Sparks on 01-17-2025 Direct Bilirubin < 0.08 mg/dL 0.00-0.30 [facility] Comment on above: Hemolysis present, R esults could be affected. Carbon dioxide, total [Moles /volume] in Central venous bloodOrdered By: Ye Sparks on 01-17-2025 CO2 [Moles/Vol] 21.3 mmol/L Normal 21.0-32.0 [facility] Comment on above: Performed By: #### L 500.3400, L503.6005, L501.2450, L500.2500, L100.0100 ####[facility] [address] [place], [address] Chloride assayOrdered By: Daniel Sparks on 01-17-2025 Chloride [Moles/Vol] 101 mmol/L Normal 98-108 [facility] Comment on above: Performed By: #### L 500.3400, L503.6005, L501.2450, L500.2500, L100.0100 ####[facility] [address] [place], [address] Emergency Department Summary on 01-17-2025 Emergency Department Summary Normal [facility] Eosinophil percentageOrdered By: Ye Sparks on 01-17-2025 Eosinophils/100 WBC (Bld) 0.3 % 0-5 [facility] Epithelial cells.squamous LM Ql (Urine sed)Ordered By: Ye Sparks on 01-17-2025 Epithelial cells.squamous LM.HPF (Urine sed) [#/Area] 0 /[HPF] 0-5 [facility] Erythrocyte distribution wid th (RBC) [Ratio]Ordered By: Ye Sparks on 01-17-2025 Erythrocyte distribution width (RBC) [Entitic vol] 52.1 fL High 35.1-43.9 [facility] Erythrocyte distribution wid th ratioOrdered By: [facility] on 01-17-2025 Erythrocyte distribution width (RBC) [Ratio] 14.3 % 11.6-14.6 [facility] Erythrocyte distribution wid th standard deviationOrdered By: [facility] on 01-17-2025 Erythrocyte distribution width (RBC) [Ratio] 52.1 fl High 35.1-43.9 [facility] Estimation of creatinine feliciano aranceOrdered By: Jefferson Arnoldoholy cross hospitalIndu on 01-17-2025 Estimated Creatinine Clearance Calc 111.38 ml/min 50-250 [facility] GFR/1.73 sq M.predicted erwin g non-blacks MDRD (S/P/Bld) [Vol rate/Area]Ordered By: [facility] on 01-17-2025 Estimated GFR (MDRD) Non-Af Amer 88 >60 [facility] Comment on above: mL/min/1.73m2 CKD-EP I Creatinine Equation (2020) Glomerular filtration rate ( GFR) estimation/1.73 sq m using serum, plasma, or whole bOrdered By: [facility] Township[facility]Ksenia on 01-17-2025 GFR/1.73 sq M.predicted among non-blacks MDRD (S/P/Bld) [Vol rate/Area] 88 mL/min/{1.73_m2} Normal >60 [place] Comment on above: mL/min/1.73m2 CKD-EP I Creatinine Equation (2020) Result Comment: mL/m in/1.73m2 CKD-EPI Creatinine Equation (2020) Performed By: #### L 500.3400, L503.6005, L501.2450, L500.2500, L100.0100 ####[facility] [address] [place], [address] Glucose Ql (U)Ordered By: Daniel Sparks on 01-17-2025 Urine Glucose (UA) Normal mg/dl Normal [facility] Hematocrit Auto (Bld) [Volum e fraction]Ordered By: Ye Sparks on 01-17-2025 Hematocrit (Bld) [Volume fraction] 46.9 % 40-54 [facility] Hemoglobin measurementOrdere d By: Ye Sparks on 01-17-2025 Hemoglobin (Bld) [Mass/Vol] 16.0 g/dL 13.0-16.5 [facility] Immature granulocytes/100 WB C Auto (Bld)Ordered By: Yeabdon Sparks on 01-17-2025 Immature granulocytes/100 WBC (Bld) 1.600 % High 0.0-0.9 [facility] Comment on above: IG% - Immature Granu locytes (promyelocytes, myelocytes and metamyelocytes) > 1% indicates that a LEFT SHIFT is Present. Ketones Test strip Ql (U)Ord ered By: Ye Sparks on 01-17-2025 Ketones Ql (U) Negative Negative [facility] Lactic Acidon 01-17-2025 Lactate [Moles/Vol] 2.1 mmol/L High 0.0-2.0 [facility] Comment on above: Order Comment: Y Performed By: #### L 500.3400, L503.6005, L501.2450, L500.2500, L100.0100 ####[facility] [address] [place], [address] Lactic acid measurementOrder ed By: Ye Sparks on 01-17-2025 Lactate [Moles/Vol] 2.1 mmol/L High 0.0-2.0 [facility] Lipase measurementOrdered By : Ye Sparks on 01-17-2025 Lipase [Catalytic activity/Vol] 56 U/L Normal 13-75 [facility] Comment on above: Please note:LIPASE r evised reference range effective 23. New Lipase methodology. Expected to produce lower values than the previous assay method. NEW Reference Range: 13 - 75 U/L Result Comment: Oracio duffy note:LIPASE revised reference range effective 23.New Lipase methodology. Expected to produce lower valuesthan the previous assay method.NEW Reference Range: 13 - 75 U/L Performed By: #### L 500.3400, L503.6005, L501.2450, L500.2500, L100.0100 ####[facility] [address] [place], [address] Liver Profileon 01-17-2025 ALK PHOS 78 U/L Normal 40-129 [facility] Comment on above: Performed By: #### L 500.3400, L503.6005, L501.2450, L500.2500, L100.0100 ####[facility] [address] [place], [address] D BILI < 0.08 Normal 0.00-0.30 [facility] Comment on above: Result Comment: Hemo lysis present, Results??could be affected.?? Performed By: #### L 500.3400, L503.6005, L501.2450, L500.2500, L100.0100 ####[facility] [address] [place], [address] T PROT 8.2 g/dL Normal 5.9-8.4 [facility] Comment on above: Performed By: #### L 500.3400, L503.6005, L501.2450, L500.2500, L100.0100 ####[facility] [address] [place], [address] Liver ProfileOrdered By: Shailesh Sparks on 01-17-2025 AST [Catalytic activity/Vol] 44 U/L High <=37 [facility] Comment on above: Hemolysis present, R esults could be affected. Result Comment: Hemo lysis present, Results??could be affected.?? Performed By: #### L 500.3400, L503.6005, L501.2450, L500.2500, L100.0100 ####[facility] [address] [place], [address] Lymphocytes Auto (Unsp spec) [#/Vol]Ordered By: Ye Sparks on 01-17-2025 Lymphocytes (Bld) [#/Vol] 1.21 10*3/uL 0.83-4.5 1 [facility] Lymphocytes/100 WBC Auto (Un sp spec)Ordered By: Ye Sparks on 01-17-2025 Lymphocytes/100 WBC (Bld) 7.0 % Low 19-41 [facility] MCV (mean corpuscular volume ) determinationOrdered By: Ye Sparks on 01-17-2025 MCV (RBC) [Entitic vol] 100.0 fL High 80-94 [facility] Mean corpuscular hemoglobin (MCH) determinationOrdered By: [facility] Health[facility] on 01-17-2025 MCH (RBC) [Entitic mass] 34.1 pg High 27.0-32.0 [facility] Mean corpuscular hemoglobin concentration (MCHC) determinationOrdered By: [facility]buryDasha on 01-17-2025 MCHC (RBC) [Mass/Vol] 34.1 g/dL 32-36 [facility] Mean platelet volume determi nationOrdered By: Ye Sparks on 01-17-2025 Platelet mean volume (Bld) [Entitic vol] 10.6 fL 6.2-12.0 [facility] Microscopic analysis of urin e for red blood cells (RBC)Ordered By: Ye Sparks on 01-17-2025 Microscopic analysis of urine for red blood cells (RBC) 0 SEEN /hpf 0-5 [facility] Urine RBC 0 SEEN /hpf 0-5 [facility] Monocyte percentageOrdered B y: Ye Sparks on 04-03-2025 Monocytes/100 WBC (Bld) 10.9 % High 0-10 [facility] Mucus LM Ql (Urine sed)Order ed By: Ye Sparks on 01-17-2025 Mucus Ql (Urine sed) 0 SEEN /hpf [facility] Neutrophil percentageOrdered By: Ye Sparks on 01-17-2025 Neutrophils/100 WBC (Bld) 79.8 % High 47-70 [facility] Nitrite Test strip Ql (U)Ord ered By: Ye Sparks on 01-17-2025 Nitrite Ql (U) Negative Negative [facility] Nucleated red blood cell per centageOrdered By: Ye Sparks on 01-17-2025 Nucleated RBC/100 WBC (Bld) [Ratio] 0 % 0-5 [facility] Pathologist review Cheng (Unsp spec) [Interp]Ordered By: Ye Sparks on 01-17-2025 Differential Pathologist's Review May foll [facility] Platelet countOrdered By: Daniel Sparks on 01-17-2025 Platelets (Bld) [#/Vol] 186 10*3/uL 150-450 [facility] Potassium measurement (mass/ volume)Ordered By: Ye Sparks on 01-17-2025 Potassium [Moles/Vol] 5.1 mmol/L Normal 3.3-5.1 [facility] Comment on above: Hemolysis present, R esults could be affected. Result Comment: Hemo lysis present, Results??could be affected.?? Performed By: #### L 500.3400, L503.6005, L501.2450, L500.2500, L100.0100 ####[facility] [address] [place], [address] Potassium (Unsp spec) [Mass/Vol] 5.1 mmol/L 3.3-5.1 [facility] Comment on above: Hemolysis present, R esults could be affected. Protein Test strip Ql (U)Ord ered By: Ye Sparks on 01-17-2025 Protein Ql (U) 15 mg/dl High Negative [facility] RBC Auto (Bld) [#/Vol]Ordere d By: Ye Sparks on 01-17-2025 RBC (Bld) [#/Vol] 4.69 10*6/uL 4.6-6.2 [facility] Review by pathologistOrdered By: Ye Sparks on 01-17-2025 Pathologist review Cheng (Unsp spec) [Interp] Reviewed [facility] Comment on above: Previous reported re sult: Faviola corado Edited by: CAYETANO on 01/29/25:1544SEE REPORT IN PATIENT'S EMR AMENDED REPORT 01/29/25 1544 PATH REV previously reported as: Faviola corado Serum creatinine measurement (mass/volume)Ordered By: Ye Sparks on 01-17-2025 Creatinine [Mass/Vol] 1.03 mg/dL Normal 0.70-1.20 [facility] Comment on above: Performed By: #### L 500.3400, L503.6005, L501.2450, L500.2500, L100.0100 ####[facility] [address] [facility] [place], [place], [address] Serum globulin measurementOr dered By: Ye Sparks on 01-17-2025 Globulin (S) [Mass/Vol] 4.2 g/dL Normal 2.2-4.2 [facility] Comment on above: Performed By: #### L 500.3400, L503.6005, L501.2450, L500.2500, L100.0100 ####[facility] [address] [place], [place], [address] Serum glucose measurement (m ass/volume)Ordered By: Ye Sparks on 01-17-2025 Glucose [Mass/Vol] 90 mg/dL Normal 70-99 [facility] Comment on above: Performed By: #### L 500.3400, L503.6005, L501.2450, L500.2500, L100.0100 ####[facility] [address] [place], [address] Serum or plasma alanine hale otransferase (ALT) measurementOrdered By: Ye Sparks on 01-17-2025 ALT [Catalytic activity/Vol] 40 U/L Normal <=46 [facility] Comment on above: Hemolysis present, R esults could be affected. Result Comment: Hemo lysis present, Results??could be affected.?? Performed By: #### L 500.3400, L503.6005, L501.2450, L500.2500, L100.0100 ####[facility] [address] [place], [address] Serum or plasma albumin marion urement (mass/volume)Ordered By: Ye Gonzalez Ksenia on 01-17-2025 Albumin [Mass/Vol] 4.0 g/dL Normal 3.5-5.0 [facility] Comment on above: Performed By: #### L 500.3400, L503.6005, L501.2450, L500.2500, L100.0100 ####[facility] [address] [facility] [place], [address] Serum or plasma alkaline jessica sphatase measurementOrdered By: Ye Sparks on 01-17-2025 ALP [Catalytic activity/Vol] 78 U/L 40-129 [facility] Serum or plasma calcium marion urement (mass/volume)Ordered By: Ye rima Mccormack on 01-17-2025 Calcium [Mass/Vol] 9.7 mg/dL Normal 7.6-11.0 [facility] Comment on above: Performed By: #### L 500.3400, L503.6005, L501.2450, L500.2500, L100.0100 ####[facility] [address] [place], [address] Serum or plasma urea nitroge n measurement (mass/volume)Ordered By: Ye Sparks on 01-17-2025 Urea nitrogen [Mass/Vol] 20 mg/dL High 4-19 [facility] Comment on above: Performed By: #### L 500.3400, L503.6005, L501.2450, L500.2500, L100.0100 ####[facility] [address] [place], [address] Sodium levelOrdered By: Cosme Sparks on 01-17-2025 Sodium [Moles/Vol] 137 mmol/L Normal 133-145 [facility] Comment on above: Performed By: #### L 500.3400, L503.6005, L501.2450, L500.2500, L100.0100 ####[facility] [address] [place], [address] Squamous epithelial cells de tection in urine sediment by light microscopyOrdered By: Ye Sparks on 01-17-2025 Epithelial cells.squamous LM Ql (Urine sed) 0 SEEN /hpf 0-5 [facility] Total proteinOrdered By: Shailesh Sparks on 01-17-2025 Protein [Mass/Vol] 8.2 g/dL 5.9-8.4 [facility] Urinalysis, Completeon 01-17 BACTERIA 0 SEEN Normal None Seen [facility] Comment on above: Order Comment: CLEAN CATCH Performed By: #### L 400.0001 ####[facility] [address] [place], [address] EPI,SQUAMOUS 0 SEEN Normal 0-5 [facility] Comment on above: Order Comment: CLEAN CATCH Performed By: #### L 400.0001 ####[facility] [address] [place], [address] Mucus Ql (Urine sed) 0 SEEN Normal [facility] Comment on above: Order Comment: CLEAN CATCH Performed By: #### L 400.0001 ####[facility] [address] [place], [address] RBC 0 SEEN Normal 0-5 [facility] Comment on above: Order Comment: CLEAN CATCH Performed By: #### L 400.0001 ####[facility] [address] [place], [address] WBC 0 SEEN Normal 0-5 [facility] Comment on above: Order Comment: CLEAN CATCH Performed By: #### L 400.0001 ####[facility] [address] [place], [address] Urine blood detectionOrdered By: Ye Sparks on 01-17-2025 Urine Occult Blood 10 /ul High Negative [facility] Urine clarityOrdered By: Shailesh Sparks on 01-17-2025 Clarity (U) Clear Clear [facility] Urine color determinationOrd ered By: Ye Sparks on 01-17-2025 Color (U) Yellow Yellow [facility] Urine glucose detectionOrder ed By: Ye Sparks on 01-17-2025 Glucose Ql (U) Normal mg/dl Normal [facility] Urine leukocyte esterase det ection by dipstickOrdered By: Ye Sparks on 01-17-2025 Leukocyte esterase Test strip Ql (U) Negative Negative [facility] Urine pHOrdered By: Ye Lou on 01-17-2025 pH (U) 5.0 [pH] 5.0 - 8.0 [facility] Urine sediment bacteria coun t by microscopy (number/high power field)Ordered By: Ye Sparks on 01-17-2025 Bacteria LM.HPF (Urine sed) [#/Area] 0 /[HPF] None Seen [facility] Urine specific gravity measu rementOrdered By: Ye Sparks on 01-17-2025 Specific gravity (U) [Rel density] 1.020 1.002-1.03 0 [facility] Urine urobilinogen measureme ntOrdered By: Ye Sparks on 01-17-2025 Urobilinogen Ql (U) Normal mg/dl Normal [facility] Urobilinogen Ql (U)Ordered B y: Ye Sparks on 01-17-2025 Urine Urobilinogen Normal mg/dl Normal [facility] White blood cell (WBC) count Ordered By: Ye Sparks on 01-17-2025 WBC (Bld) [#/Vol] 17.4 10*3/uL High 4.4-11.0 [facility] White blood cell countOrdere d By: Ye Sparks on 01-17-2025 Urine WBC 0 SEEN /hpf 0-5 [facility] White blood cell count 0 SEEN /hpf 0-5 [facility] Absolute neutrophil countOrd ered By: Vielka Lane on 01-10-2025 Neutrophils (Bld) [#/Vol] 13.8 10*3/uL High 2.0-7.7 [facility] Anion gap in Serum or Plasma Ordered By: Vielka Lane on 01-10-2025 Anion gap [Moles/Vol] 15 mmol/L 5-15 [facility] BUN/creatinine ratioOrdered By: Vielka Lane on 01-10-2025 Urea nitrogen/Creatinine [Mass ratio] 22.5 mg/mg High 10-20 [facility] Basophil percentageOrdered B y: Vielka Lane on 01-10-2025 Basophils/100 WBC (Bld) 0.3 % 0-1 [facility] Bilirubin, totalOrdered By: Vielka Lane on 01-10-2025 Bilirubin [Mass/Vol] 0.27 mg/dL 0.00-1.30 [facility] CBC W/Diff, Automatedon 12-16 Absolute Lymph 0.71 X10 3/uL Low 0.83-4.51 [facility] Comment on above: Performed By: #### L 500.4050, L100.0100 ####[facility] [address] [place], [address] Absolute Neut 13.8 X10 3/uL High 2.0-7.7 [facility] Comment on above: Performed By: #### L 500.4050, L100.0100 ####[facility] [address] [place], [address] Basophils/100 WBC (Bld) 0.3 % Normal 0-1 [facility] Comment on above: Performed By: #### L 500.4050, L100.0100 ####[facility] [address] [place], [address] Eosinophils/100 WBC (Bld) 0.1 % Normal 0-5 [facility] Comment on above: Performed By: #### L 500.4050, L100.0100 ####[facility] [address] [place], [address] Erythrocyte distribution width (RBC) [Ratio] 14.0 % Normal 11.6-14.6 [facility] Comment on above: Performed By: #### L 500.4050, L100.0100 ####[facility] [address] [place], [address] Hematocrit (Bld) [Volume fraction] 43.1 % Normal 40-54 [facility] Comment on above: Performed By: #### L 500.4050, L100.0100 ####[facility] [address] [place], [address] Hemoglobin (Bld) [Mass/Vol] 14.8 g/dL Normal 13.0-16.5 [facility] Comment on above: Performed By: #### L 500.4050, L100.0100 ####[facility] [address] [place], [address] IG% 1.100 High 0.0-0.9 [facility] Comment on above: Result Comment: IG% - Immature Granulocytes (promyelocytes, myelocytes andmetamyelocytes) > 1% indicates that a LEFT SHIFT is Present. Performed By: #### L 500.4050, L100.0100 ####[facility] [address] [place], [address] Lymphocytes/100 WBC (Bld) 4.5 % Low 19-41 [facility] Comment on above: Performed By: #### L 500.4050, L100.0100 ####[facility] [address] [place], [address] MCH (RBC) [Entitic mass] 34.3 pg High 27.0-32.0 [facility] Comment on above: Performed By: #### L 500.4050, L100.0100 ####[facility] [address] [place], [address] MCHC (RBC) [Mass/Vol] 34.3 g/dL Normal 32-36 [facility] Comment on above: Performed By: #### L 500.4050, L100.0100 ####[facility] [address] [place], [address] MCV (RBC) [Entitic vol] 99.8 fL High 80-94 [facility] Comment on above: Performed By: #### L 500.4050, L100.0100 ####[facility] [address] [place], [address] Monocytes/100 WBC (Bld) 6.9 % Normal 0-10 [facility] Comment on above: Performed By: #### L 500.4050, L100.0100 ####[facility] [address] [place], [address] Neutrophils/100 WBC (Bld) 87.1 % High 47-70 [facility] Comment on above: Performed By: #### L 500.4050, L100.0100 ####[facility] [address] [place], [address] Nucleated RBC (Bld) [#/Vol] 0 10*3/uL Normal 0-5 [facility] Comment on above: Performed By: #### L 500.4050, L100.0100 ####[facility] [address] [place], [address] Platelet mean volume (Bld) [Entitic vol] 9.7 fL Normal 6.2-12.0 [facility] Comment on above: Performed By: #### L 500.4050, L100.0100 ####[facility] [address] [place], [address] Platelets (Bld) [#/Vol] 157 10*3/uL Normal 150-450 [facility] Comment on above: Performed By: #### L 500.4050, L100.0100 ####[facility] [address] [place], [address] RBC (Bld) [#/Vol] 4.32 10*6/uL Low 4.6-6.2 [facility] Comment on above: Performed By: #### L 500.4050, L100.0100 ####[facility] [address] [place], [address] RDW SD 51.7 fl High 35.1-43.9 [facility] Comment on above: Performed By: #### L 500.4050, L100.0100 ####[facility] [address] [place], [address] WBC (Bld) [#/Vol] 15.8 10*3/uL High 4.4-11.0 [facility] Comment on above: Performed By: #### L 500.4050, L100.0100 ####[facility] [address] [place], [address] Carbon dioxide, total [Moles /volume] in Central venous bloodOrdered By: Vielka Lane on 01-10-2025 CO2 [Moles/Vol] 20.8 mmol/L Low 21.0-32.0 [facility] Chloride assayOrdered By: Josh Lane on 01-10-2025 Chloride [Moles/Vol] 104 mmol/L 98-108 [facility] Comprehensive Metabolic Prof ilon 01-10-2025 Albumin [Mass/Vol] 3.5 g/dL Normal 3.5-5.0 [facility] Comment on above: Performed By: #### L 500.4050, L100.0100 ####[facility] [address] [place], [address] Albumin/Globulin [Mass ratio] 1.4 {ratio} Normal 0.9-2.4 [facility] Comment on above: Performed By: #### L 500.4050, L100.0100 ####[facility] [address] [place], [address] ALK PHOS 67 U/L Normal 40-129 [facility] Comment on above: Performed By: #### L 500.4050, L100.0100 ####[facility] [address] [place], [address] ALT [Catalytic activity/Vol] 33 U/L Normal <=46 [facility] Comment on above: Performed By: #### L 500.4050, L100.0100 ####[facility] [address] [place], [address] AST [Catalytic activity/Vol] 19 U/L Normal <=37 [facility] Comment on above: Performed By: #### L 500.4050, L100.0100 ####[facility] [address] [place], [address] Bilirubin [Mass/Vol] 0.27 mg/dL Normal 0.00-1.30 [facility] Comment on above: Performed By: #### L 500.4050, L100.0100 ####[facility] [address] [place], [address] BUN/CRE 22.5 RATIO High 10-20 [facility] Comment on above: Performed By: #### L 500.4050, L100.0100 ####[facility] [address] [place], [address] Calcium [Mass/Vol] 9.1 mg/dL Normal 7.6-11.0 [facility] Comment on above: Performed By: #### L 500.4050, L100.0100 ####[facility] [address] [place], [address] Chloride [Moles/Vol] 104 mmol/L Normal 98-108 [facility] Comment on above: Performed By: #### L 500.4050, L100.0100 ####[facility] [address] [place], [address] CO2 [Moles/Vol] 20.8 mmol/L Low 21.0-32.0 [facility] Comment on above: Performed By: #### L 500.4050, L100.0100 ####[facility] [address] [place], [address] Creatinine [Mass/Vol] 1.01 mg/dL Normal 0.70-1.20 [facility] Comment on above: Performed By: #### L 500.4050, L100.0100 ####[facility] [address] [place], [address] ECRCL 113.74 ml/min Normal 50-250 [facility] Comment on above: Performed By: #### L 500.4050, L100.0100 ####[facility] [address] [place], [address] GAP 15 Normal 5-15 [facility] Comment on above: Performed By: #### L 500.4050, L100.0100 ####[facility] [address] [place], [address] GFR/1.73 sq M.predicted among non-blacks MDRD (S/P/Bld) [Vol rate/Area] 91 mL/min/{1.73_m2} Normal >60 [facility] Comment on above: Result Comment: mL/m in/1.73m2 CKD-EPI Creatinine Equation (2020) Performed By: #### L 500.4050, L100.0100 ####[facility] [address] [place], [address] Globulin (S) [Mass/Vol] 2.6 g/dL Normal 2.2-4.2 [facility] Comment on above: Performed By: #### L 500.4050, L100.0100 ####[facility] [address] [place], [address] Glucose [Mass/Vol] 104 mg/dL High 70-99 [facility] Comment on above: Performed By: #### L 500.4050, L100.0100 ####[facility] [address] [place], [address] Potassium [Moles/Vol] 4.1 mmol/L Normal 3.3-5.1 [facility] Comment on above: Performed By: #### L 500.4050, L100.0100 ####[facility] [address] [place], [address] Sodium [Moles/Vol] 139 mmol/L Normal 133-145 [facility] Comment on above: Performed By: #### L 500.4050, L100.0100 ####[facility] [address] [place], [address] T PROT 6.1 g/dL Normal 5.9-8.4 [facility] Comment on above: Performed By: #### L 500.4050, L100.0100 ####[facility] [address] [place], [place], [address] Urea nitrogen [Mass/Vol] 23 mg/dL High 4-19 [facility] Comment on above: Performed By: #### L 500.4050, L100.0100 ####[facility] [address] [place], [place], [address] Eosinophil percentageOrdered By: Vielka Lane on 01-10-2025 Eosinophils/100 WBC (Bld) 0.1 % 0-5 [facility] Erythrocyte distribution wid th ratioOrdered By: [facility] on 01-10-2025 Erythrocyte distribution width (RBC) [Ratio] 14.0 % 11.6-14.6 [facility] Erythrocyte distribution wid th standard deviationOrdered By: Vielkacarmen Lane on 01-10-2025 Erythrocyte distribution width (RBC) [Entitic vol] 51.7 fL High 35.1-43.9 [facility] Estimation of creatinine feliciano aranceOrdered By: Vielka Lane on 01-10-2025 Estimated Creatinine Clearance Calc 113.74 ml/min 50-250 [facility] GFR/1.73 sq M.predicted erwin g non-blacks MDRD (S/P/Bld) [Vol rate/Area]Ordered By: Vielka Lane on 01-10-2025 Estimated GFR (MDRD) Non-Af Amer 91 >60 [facility] Comment on above: mL/min/1.73m2 CKD-EP I Creatinine Equation (2020) Hematocrit Auto (Bld) [Volum e fraction]Ordered By: iVelka Lane on 01-10-2025 Hematocrit (Bld) [Volume fraction] 43.1 % 40-54 [facility] Hemoglobin measurementOrdere d By: Vielka Lane on 01-10-2025 Hemoglobin (Bld) [Mass/Vol] 14.8 g/dL 13.0-16.5 [facility] Immature granulocytes/100 WB C Auto (Bld)Ordered By: Vielka Lane on 01-10-2025 Immature granulocytes/100 WBC (Bld) 1.100 % High 0.0-0.9 [facility] Comment on above: IG% - Immature Granu locytes (promyelocytes, myelocytes and metamyelocytes) > 1% indicates that a LEFT SHIFT is Present. Laboratory - Chemistry and C hemistry - challengeOrdered By: Vielka Lane on 01-10-2025 AST [Catalytic activity/Vol] 19 U/L <38 [facility] Lymphocytes Auto (Unsp spec) [#/Vol]Ordered By: Vielka Lane on 01-10-2025 Lymphocytes (Bld) [#/Vol] 0.71 10*3/uL Low 0.83-4.5 1 [facility] Lymphocytes/100 WBC Auto (Un sp spec)Ordered By: Vielka Lane on 01-10-2025 Lymphocytes/100 WBC (Bld) 4.5 % Low 19-41 [facility] MCV (mean corpuscular volume ) determinationOrdered By: Vielka Lane on 01-10-2025 MCV (RBC) [Entitic vol] 99.8 fL High 80-94 [facility] Mean corpuscular hemoglobin (MCH) determinationOrdered By: Vielka Lane on 01-10-2025 MCH (RBC) [Entitic mass] 34.3 pg High 27.0-32.0 [facility] Mean corpuscular hemoglobin concentration (MCHC) determinationOrdered By: Vielka Lane on 01-10-2025 MCHC (RBC) [Mass/Vol] 34.3 g/dL 32-36 [facility] Mean platelet volume determi nationOrdered By: Vielka Lane on 01-10-2025 Platelet mean volume (Bld) [Entitic vol] 9.7 fL 6.2-12.0 [facility] Monocyte percentageOrdered B y: Vielka Lane on 01-10-2025 Monocytes/100 WBC (Bld) 6.9 % 0-10 [facility] Neutrophil percentageOrdered By: Vielka Lane on 01-10-2025 Neutrophils/100 WBC (Bld) 87.1 % High 47-70 [facility] Nucleated red blood cell per centageOrdered By: Vielka Lane on 01-10-2025 Nucleated RBC/100 WBC (Bld) [Ratio] 0 % 0-5 [facility] Oncology Visit Reporton 12-16 Oncology Visit Report Normal [facility] Platelet countOrdered By: Josh Lane on 01-10-2025 Platelets (Bld) [#/Vol] 157 10*3/uL 150-450 [facility] Potassium (Unsp spec) [Mass/ Vol]Ordered By: Vielka Lane on 01-10-2025 Potassium [Moles/Vol] 4.1 mmol/L 3.3-5.1 [facility] RBC Auto (Bld) [#/Vol]Ordere d By: Vielka Lane on 01-10-2025 RBC (Bld) [#/Vol] 4.32 10*6/uL Low 4.6-6.2 [facility] Radiation Oncology Visiton 0 01-10-2025 Radiation Oncology Visit Normal [facility] Serum creatinine measurement (mass/volume)Ordered By: Vielka Lane on 01-10-2025 Creatinine [Mass/Vol] 1.01 mg/dL 0.70-1.20 [facility] Serum globulin measurementOr dered By: Vielka Lane on 01-10-2025 Globulin (S) [Mass/Vol] 2.6 g/dL 2.2-4.2 [facility] Serum glucose measurement (m ass/volume)Ordered By: Vielka Lane on 01-10-2025 Glucose [Mass/Vol] 104 mg/dL High 70-99 [facility] Serum or plasma alanine hale otransferase (ALT) measurementOrdered By: Vielka Lane on 01-10-2025 ALT [Catalytic activity/Vol] 33 U/L <47 [facility] Serum or plasma albumin marion urement (mass/volume)Ordered By: Vielka Lane on 01-10-2025 Albumin [Mass/Vol] 3.5 g/dL 3.5-5.0 [facility] Serum or plasma albumin/glob ulin mass ratioOrdered By: Vielka Lane on 01-10-2025 Albumin/Globulin [Mass ratio] 1.4 {ratio} 0.9-2.4 [facility] Serum or plasma alkaline jessica sphatase measurementOrdered By: Vielka Lane on 01-10-2025 ALP [Catalytic activity/Vol] 67 U/L 40-129 [facility] Serum or plasma calcium marion urement (mass/volume)Ordered By: Vielka Lane on 01-10-2025 Calcium [Mass/Vol] 9.1 mg/dL 7.6-11.0 [facility] Serum or plasma urea nitroge n measurement (mass/volume)Ordered By: Vielka Lane on 01-10-2025 Urea nitrogen [Mass/Vol] 23 mg/dL High 4-19 [facility] Sodium levelOrdered By: Vielka Lane on 01-10-2025 Sodium [Moles/Vol] 139 mmol/L 133-145 [facility] Total proteinOrdered By: Luis Lane on 01-10-2025 Protein [Mass/Vol] 6.1 g/dL 5.9-8.4 [facility] Venous Duplex US - Abhishek Extre mon 01-10-2025 Venous Duplex US - Abhishek Extrem Normal [facility] Venous duplex ultrasound rep ortOrdered By: Trevor Hair on 01-10-2025 US Vein [facility] [address] [place] [address] Venous Duplex US - Abhishek Extrem 01/10/25 1552 MR#: [id number] Acct: [id number] Name: LAMINE JOSEPH Rep #:[id number] : 1975 49 From: Trevor Lyle Attending Dr: Dr. Geoff Dallas MD S tatus: REG CLI Ordering Dr: Geoff Dallas MD Date: Location: CVS Sex: M C Admitted: Reason For Study Reason For Study: Swelling RIGHT LEFT GSV is normal. GSV is normal. RT PerV is compressible. CFV is compressible, spontaneous, phasic, competent, Acute deep vein thrombosis is noted in the CFV, FV, and demonstrates normal augmentation. POP V, T/P Trunk, PTV, Gastroc V, and Soleus V. It is FV is compressible, spontaneous, phasic, competent dilated and NONCOMPRESSIBLE. and demonstrates normal augmentation. Procedure POP V is compressible, spontaneous, phasic, competent This is a venous duplex using B-mode, color flow and and demonstrates normal augmentation. spectral Doppler. T/P Trunk is compressible. Exam performed in department. PTV is compressible. A preliminary report was called and/or faxed to Rachel, PerV is compressible. Dr. Dallas's Office. VL/Venous Duplex US - Abhishek Extrem Interpretation Summary Acute deep vein thrombosis noted in the right common femoral vein, femoral vein,popliteal vein, tibioperoneal trunk vein, posterior tibial vein, gastrocnemius vein, soleus vein. Deep veins of the left lower extremity are patent and compressible segmentally. There is no evidence of left lower extremity deep vein thrombosis. The bilateral great saphenous veins appear patent and compressible segmentally. Ordering Physician: Geoff Dallas Referring Physician: MD Ez Lee Performed By: Radha Bills RVT 01/10/251905 Date _ Trevor Hair MD CC: Dr. Geoff Dallas MD; Dr. Ez Lee MD ~ Date Dictated: 01/10/25 1552 Date Transcribed: 01/10/251905 Bird Tender: Signed [facility] Work Phone: White blood cell (WBC) count Ordered By: Vielka Lane on 01-10-2025 WBC (Bld) [#/Vol] 15.8 10*3/uL High 4.4-11.0 [facility] Brain W/WO Contraston 2024 Brain W/WO Contrast Normal [facility] Magnetic resonance imaging r eportOrdered By: Benito Ramirez on 01-07-2025 Study report [facility] Imaging Services [address] [place] [address] Brain W/WO Contrast MR#: [id number] Acct: [id number] Name: LAMINE JOSEPH Rep #: [id number] : 1975 M 49 From: Abner Ramirez MD PCP: Dr. 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 Status post surgery on September 21, 2024. Interim treatment with radiation therapy and chemotherapy. TECHNIQUE: Multiplanar, multisequence MRI of the brain without and with the administration of 20 mL of intravenous Clariscan. COMPARISON: MRI of the brain without and with contrast dated October 18, 2024. 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 The lesion is slightly more predominant on the right side. Previous maximum diameter coordinates showed a mass of 4.7 cm transverse by 4.0 cm AP by 4.3 cm craniocaudal. When measured similarly on the current study, along the same vectors the mass-lesion is approximated at 4.1 cm x 3.3 cmby 4.3 cm. The lesion again shows considerable central necrosis. 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 Multiple scattered abutting subcentimeter enhancing daughter nodules in the best radiata of both frontal lobes have diminished slightly overall. The surrounding infiltrating bifrontotemporal bright T2 signal changes with mass effect extending into the best radiata of both frontal lobes, most severe in the right superior to mid frontal of areas with extension out to a subcortical level, and compatible with tumoral infiltration and/or vasogenic interstitial edema, have shown considerable diminution and is evidenced by decreased mass effect and lessened effacement upon the frontal horns and bodies of the lateral ventricles. Lesser involvement of the right thalamus with extension down to the right cerebral peduncle and top ofthe midbrain is also noted. Patchy diffusion restriction in the areas of abnormal enhancement persists. No interim appearance of any hemorrhagic component is identified. There is no evidence of development of subdural hematoma. There is no evidence of uncal herniation and there is no evidence of cerebellar tonsillar herniation. There is no evidence of metastatic involvement of the skull. MRI/Brain W/WO Contrast IMPRESSION: Slight diminution in size of the central mass and decreased bifrontal daughter nodules with bilateral areas of enhancing involvement but with decreased peripheral mass effect with lessened effacement of the ventricular system of the known extensive bilateral glioblastoma multiforme due to decreased surrounding edema since October 18, 2024. Reading Location: [place] [address] CC: Dr. Ez Lee MD; Dr. Stephen Davis DO ~ Bird Tender: Signed [facility] Absolute neutrophil countOrd ered By: Vielka Lane on 12-10-2024 Neutrophils (Bld) [#/Vol] 10.9 10*3/uL High 2.0-7.7 [facility] Albumin to globulin ratioOrd ered By: Vielka Lane on 12-10-2024 Albumin/Globulin [Mass ratio] 0.7 {ratio} Low 0.9-2.4 [facility] Basophil percentageOrdered B y: Vielka Lane on 12-10-2024 Basophils/100 WBC (Bld) 0.4 % 0-1 [facility] Bilirubin, totalOrdered By: Vielka Lane on 12-10-2024 Bilirubin [Mass/Vol] 0.20 mg/dL 0.20-1.00 [facility] Comment on above: For patients on eltr ombopag therapy, use of Dimension [place] TBIL is not recommended. Blood urea nitrogen (BUN)/cr eatinine ratioOrdered By: Vielka Lane on 12-10-2024 Urea nitrogen/Creatinine [Mass ratio] 21.0 mg/mg High 10-20 [facility] CBC W/Diff, Automatedon 11-18 Absolute Lymph 0.71 X10 3/uL Low 0.83-4.51 [facility] Comment on above: Performed By: #### L 100.0100, L500.4050 ####[facility] [address] [place], [address] Absolute Neut 10.9 X10 3/uL High 2.0-7.7 [facility] Comment on above: Performed By: #### L 100.0100, L500.4050 ####[facility] [address] [place], [address] Basophils/100 WBC (Bld) 0.4 % Normal 0-1 [facility] Comment on above: Performed By: #### L 100.0100, L500.4050 ####[facility] [address] [place], [address] Eosinophils/100 WBC (Bld) 0.2 % Normal 0-5 [facility] Comment on above: Performed By: #### L 100.0100, L500.4050 ####[facility] [address] [place], [address] Erythrocyte distribution width (RBC) [Ratio] 15.7 % High 11.6-14.6 [facility] Comment on above: Performed By: #### L 100.0100, L500.4050 ####[facility] [address] [place], [address] Hematocrit (Bld) [Volume fraction] 45.5 % Normal 40-54 [facility] Comment on above: Performed By: #### L 100.0100, L500.4050 ####[facility] [address] [place], [address] Hemoglobin (Bld) [Mass/Vol] 15.2 g/dL Normal 13.0-16.5 [facility] Comment on above: Performed By: #### L 100.0100, L500.4050 ####[facility] [address] [place], [address] IG% 1.800 High 0.0-0.9 [facility] Comment on above: Result Comment: IG% - Immature Granulocytes (promyelocytes, myelocytes andmetamyelocytes) > 1% indicates that a LEFT SHIFT is Present. Performed By: #### L 100.0100, L500.4050 ####[facility] [address] [place], [address] Lymphocytes/100 WBC (Bld) 5.4 % Low 19-41 [facility] Comment on above: Performed By: #### L 100.0100, L500.4050 ####[facility] [address] [place], [address] MCH (RBC) [Entitic mass] 33.9 pg High 27.0-32.0 [facility] Comment on above: Performed By: #### L 100.0100, L500.4050 ####[facility] [address] [place], [address] MCHC (RBC) [Mass/Vol] 33.4 g/dL Normal 32-36 [facility] Comment on above: Performed By: #### L 100.0100, L500.4050 ####[facility] [address] [place], [address] MCV (RBC) [Entitic vol] 101.6 fL High 80-94 [facility] Comment on above: Performed By: #### L 100.0100, L500.4050 ####[facility] [address] [place], [address] Monocytes/100 WBC (Bld) 8.5 % Normal 0-10 [facility] Comment on above: Performed By: #### L 100.0100, L500.4050 ####[facility] [address] [place], [address] Neutrophils/100 WBC (Bld) 83.7 % High 47-70 [facility] Comment on above: Performed By: #### L 100.0100, L500.4050 ####[facility] [address] [place], [address] Nucleated RBC (Bld) [#/Vol] 0 10*3/uL Normal 0-5 [facility] Comment on above: Performed By: #### L 100.0100, L500.4050 ####[facility] [address] [place], [address] Platelet mean volume (Bld) [Entitic vol] 10.0 fL Normal 6.2-12.0 [facility] Comment on above: Performed By: #### L 100.0100, L500.4050 ####[facility] [address] [place], [address] Platelets (Bld) [#/Vol] 183 10*3/uL Normal 150-450 [facility] Comment on above: Performed By: #### L 100.0100, L500.4050 ####[facility] [address] [place], [address] RBC (Bld) [#/Vol] 4.48 10*6/uL Low 4.6-6.2 [facility] Comment on above: Performed By: #### L 100.0100, L500.4050 ####[facility] [address] [place], [address] RDW SD 58.6 fl High 35.1-43.9 [facility] Comment on above: Performed By: #### L 100.0100, L500.4050 ####[facility] [address] [place], [address] WBC (Bld) [#/Vol] 13.0 10*3/uL High 4.4-11.0 [facility] Comment on above: Performed By: #### L 100.0100, L500.4050 ####[facility] [address] [place], [address] Carbon dioxide measurementOr dered By: Vielka Lane on 12-10-2024 CO2 [Moles/Vol] 23.0 mmol/L 21.0-32.0 [facility] Chloride measurementOrdered By: Vielka Lane on 12-10-2024 Chloride [Moles/Vol] 110 mmol/L High 98-107 [facility] Comprehensive Metabolic Prof ilon 12-10-2024 Albumin [Mass/Vol] 2.9 g/dL Low 3.2-5.0 [facility] Comment on above: Performed By: #### L 100.0100, L500.4050 ####[facility] [address] [place], [address] Albumin/Globulin [Mass ratio] 0.7 {ratio} Low 0.9-2.4 [facility] Comment on above: Performed By: #### L 100.0100, L500.4050 ####[facility] [address] [place], [address] ALK P 56 U/L Normal 45-117 [facility] Comment on above: Performed By: #### L 100.0100, L500.4050 ####[facility] [address] [place], [address] ALT [Catalytic activity/Vol] 51 U/L Normal 16-61 [facility] Comment on above: Performed By: #### L 100.0100, L500.4050 ####[facility] [address] [place], [address] AST [Catalytic activity/Vol] 16 U/L Normal 15-37 [facility] Comment on above: Performed By: #### L 100.0100, L500.4050 ####[facility] [address] [place], [address] Bilirubin [Mass/Vol] 0.20 mg/dL Normal 0.20-1.00 [facility] Comment on above: Result Comment: For patients on eltrombopag therapy, use of Dimension [place] TBIL is not recommended. Performed By: #### L 100.0100, L500.4050 ####[facility] [address] [place], [address] BUN/CRE 21.0 RATIO High 10-20 [facility] Comment on above: Performed By: #### L 100.0100, L500.4050 ####[facility] [address] [place], [address] CA,Total 8.8 mg/dL Normal 8.5-10.1 [facility] Comment on above: Performed By: #### L 100.0100, L500.4050 ####[facility] [address] [place], [address] Chloride [Moles/Vol] 110 mmol/L High 98-107 [facility] Comment on above: Performed By: #### L 100.0100, L500.4050 ####[facility] [address] [place], [address] CO2 [Moles/Vol] 23.0 mmol/L Normal 21.0-32.0 [facility] Comment on above: Performed By: #### L 100.0100, L500.4050 ####[facility] [address] [place], [address] Creatinine [Mass/Vol] 1.05 mg/dL Normal 0.70-1.30 [facility] Comment on above: Result Comment: The validity of the calculated GFR GFRAA in patients over70 years has not been determined. Clinical correlation isessential. Performed By: #### L 100.0100, L500.4050 ####[facility] [address] [place], [address] ECRCL 109.34 ml/min Normal [facility] Comment on above: Performed By: #### L 100.0100, L500.4050 ####[facility] [address] [place], [address] EST GFR - AA 96 mL/min Normal >60 [facility] Comment on above: Result Comment: Afri can [place] GFR Calc Performed By: #### L 100.0100, L500.4050 ####[facility] [address] [place], [address] GAP 10 Normal 5-15 [facility] Comment on above: Performed By: #### L 100.0100, L500.4050 ####[facility] [address] [place], [address] GFR/1.73 sq M.predicted among non-blacks MDRD (S/P/Bld) [Vol rate/Area] 80 mL/min/{1.73_m2} Normal >60 [facility] Comment on above: Result Comment: Non- GFR Calc Performed By: #### L 100.0100, L500.4050 ####[facility] [address] [place], [address] Globulin (S) [Mass/Vol] 4.0 g/dL Normal 2.2-4.2 [facility] Comment on above: Performed By: #### L 100.0100, L500.4050 ####[facility] [address] [place], [address] Glucose [Mass/Vol] 128 mg/dL High 74-106 [facility] Comment on above: Result Comment: Fast ing Glucose result greater than or equal to 126 mg/dLsuggests DIABETES MELLITUS per A.D.A. criteria. Performed By: #### L 100.0100, L500.4050 ####[facility] [address] [place], [address] Potassium [Moles/Vol] 3.8 mmol/L Normal 3.5-5.1 [facility] Comment on above: Performed By: #### L 100.0100, L500.4050 ####[facility] [address] [place], [address] Sodium [Moles/Vol] 143 mmol/L Normal 136-145 [facility] Comment on above: Performed By: #### L 100.0100, L500.4050 ####[facility] [address] [place], [address] T PROT 6.9 g/dL Normal 6.4-8.2 [facility] Comment on above: Performed By: #### L 100.0100, L500.4050 ####[facility] [address] [place], [address] Urea nitrogen [Mass/Vol] 22 mg/dL High 7-18 [facility] Comment on above: Performed By: #### L 100.0100, L500.4050 ####[facility] [address] [place], [address] Eosinophil percentageOrdered By: Vielka Lane on 12-10-2024 Eosinophils/100 WBC (Bld) 0.2 % 0-5 [facility] Erythrocyte distribution wid th ratioOrdered By: Vielka Lane on 12-10-2024 Erythrocyte distribution width (RBC) [Ratio] 15.7 % High 11.6-14.6 [facility] Erythrocyte distribution wid th standard deviationOrdered By: Vielka Lane on 12-10-2024 Erythrocyte distribution width (RBC) [Entitic vol] 58.6 fL High 35.1-43.9 [facility] Estimated glomerular filtrat ion rate (GFR) AmericanOrdered By: Vielka Lane on 12-10-2024 Estimated GFR (MDRD) Amer 96 mL/min >60 [facility] Comment on above: GFR Calc Estimation of creatinine feliciano aranceOrdered By: Vielka Lane on 12-10-2024 Estimated Creatinine Clearance Calc 109.34 ml/min [facility] Glomerular filtration rate ( GFR) estimationOrdered By: Vielka Lane on 12-10-2024 Estimated GFR (MDRD) Non-Af Amer 80 mL/min >60 [facility] Comment on above: Non- GFR Calc Glucose measurementOrdered B y: Vielka Lane on 12-10-2024 Glucose [Mass/Vol] 128 mg/dL High 74-106 [facility] Comment on above: Fasting Glucose resu lt greater than or equal to 126 mg/dL suggests DIABETES MELLITUS per A.D.A. criteria. Hematocrit Auto (Bld) [Volum e fraction]Ordered By: Vielka Lane on 12-10-2024 Hematocrit (Bld) [Volume fraction] 45.5 % 40-54 [facility] Hemoglobin measurementOrdere d By: Vielka Lane on 12-10-2024 Hemoglobin (Bld) [Mass/Vol] 15.2 g/dL 13.0-16.5 [facility] Immature granulocytes/100 WB C Auto (Bld)Ordered By: Vielka Lane on 12-10-2024 Immature granulocytes/100 WBC (Bld) 1.800 % High 0.0-0.9 [facility] Comment on above: IG% - Immature Granu locytes (promyelocytes, myelocytes and metamyelocytes) > 1% indicates that a LEFT SHIFT is Present. Laboratory - Chemistry and C hemistry - challengeOrdered By: Vielka Lane on 12-10-2024 AST [Catalytic activity/Vol] 16 U/L 15-37 [facility] Lymphocytes Auto (Unsp spec) [#/Vol]Ordered By: Vielka Lane on 12-10-2024 Lymphocytes (Bld) [#/Vol] 0.71 10*3/uL Low 0.83-4.5 1 [facility] Lymphocytes/100 WBC Auto (Un sp spec)Ordered By: Vielka Lane on 12-10-2024 Lymphocytes/100 WBC (Bld) 5.4 % Low 19-41 [facility] MCV (mean corpuscular volume ) determinationOrdered By: Vielka Lane on 12-10-2024 MCV (RBC) [Entitic vol] 101.6 fL High 80-94 [facility] Mean corpuscular hemoglobin (MCH) determinationOrdered By: Vielka BrysonAriana on 12-10-2024 MCH (RBC) [Entitic mass] 33.9 pg High 27.0-32.0 [facility] Mean corpuscular hemoglobin concentration (MCHC) determinationOrdered By: Vielka Ariana on 12-10-2024 MCHC (RBC) [Mass/Vol] 33.4 g/dL 32-36 [facility] Mean platelet volume determi nationOrdered By: Vielka Ariana on 12-10-2024 Platelet mean volume (Bld) [Entitic vol] 10.0 fL 6.2-12.0 [facility] Monocyte percentageOrdered B y: Vielka BrysonAriana on 12-10-2024 Monocytes/100 WBC (Bld) 8.5 % 0-10 [facility] Neutrophil percentageOrdered By: Vielka Ariana on 12-10-2024 Neutrophils/100 WBC (Bld) 83.7 % High 47-70 [facility] Nucleated red blood cell per centageOrdered By: Vielka Ariana on 12-10-2024 Nucleated RBC/100 WBC (Bld) [Ratio] 0 % 0-5 [facility] Oncology Visit Reporton 11-18 Oncology Visit Report Normal [facility] Platelet countOrdered By: Josh Lane on 12-10-2024 Platelets (Bld) [#/Vol] 183 10*3/uL 150-450 [facility] Potassium measurementOrdered By: Vielka BrysonAriana on 12-10-2024 Potassium [Moles/Vol] 3.8 mmol/L 3.5-5.1 [facility] RBC Auto (Bld) [#/Vol]Ordere d By: Vielka Ariana on 12-10-2024 RBC (Bld) [#/Vol] 4.48 10*6/uL Low 4.6-6.2 [facility] Serum anion gap measurementO rdered By: Vielka Ariana on 12-10-2024 Anion gap [Moles/Vol] 10 mmol/L 5-15 [facility] Serum globulin measurementOr dered By: Vielka BrysonAriana on 12-10-2024 Globulin (S) [Mass/Vol] 4.0 g/dL 2.2-4.2 [facility] Serum or plasma alanine hale otransferase (ALT) measurementOrdered By: Vielka Lane on 12-10-2024 ALT [Catalytic activity/Vol] 51 U/L 16-61 [facility] Serum or plasma albumin marion urement (mass/volume)Ordered By: Vielka Lane on 12-10-2024 Albumin [Mass/Vol] 2.9 g/dL Low 3.2-5.0 [facility] Serum or plasma alkaline jessica sphatase measurementOrdered By: Vielka Lane on 12-10-2024 ALP [Catalytic activity/Vol] 56 U/L 45-117 [facility] Serum or plasma calcium marion urement (mass/volume)Ordered By: Vielka Lane on 12-10-2024 Calcium [Mass/Vol] 8.8 mg/dL 8.5-10.1 [facility] Serum or plasma creatinine m easurement (mass/volume)Ordered By: Vielka Lane on 12-10-2024 Creatinine [Mass/Vol] 1.05 mg/dL 0.70-1.30 [facility] Comment on above: The validity of the calculated GFR & GFRAA in patients over 70 years has not been determined. Clinical correlation is essential. Serum or plasma urea nitroge n measurement (mass/volume)Ordered By: Vielka Lane on 12-10-2024 Urea nitrogen [Mass/Vol] 22 mg/dL High 7-18 [facility] Sodium levelOrdered By: Vielka Lane on 12-10-2024 Sodium [Moles/Vol] 143 mmol/L 136-145 [facility] Total proteinOrdered By: Luis Lane on 12-10-2024 Protein [Mass/Vol] 6.9 g/dL 6.4-8.2 [facility] White blood cell (WBC) count Ordered By: Vielka Lane on 12-10-2024 WBC (Bld) [#/Vol] 13.0 10*3/uL High 4.4-11.0 [facility] Radiation Oncology Visiton 0 - Radiation Oncology Visit Normal [facility] Radiation Oncology Visit Normal [facility] CBC W/Diff, Automatedon - Absolute Lymph 0.77 X10 3/uL Low 0.83-4.51 [facility] Comment on above: Performed By: #### L 100.0100, L500.4050 ####[facility] [address] [place], [address] Absolute Neut 12.4 X10 3/uL High 2.0-7.7 [facility] Comment on above: Performed By: #### L 100.0100, L500.4050 ####[facility] [address] [place], [address] Basophils/100 WBC (Bld) 0.3 % Normal 0-1 [facility] Comment on above: Performed By: #### L 100.0100, L500.4050 ####[facility] [address] [place], [address] Eosinophils/100 WBC (Bld) 0.1 % Normal 0-5 [facility] Comment on above: Performed By: #### L 100.0100, L500.4050 ####[facility] [address] [place], [address] Erythrocyte distribution width (RBC) [Ratio] 15.5 % High 11.6-14.6 [facility] Comment on above: Performed By: #### L 100.0100, L500.4050 ####[facility] [address] [place], [address] Hematocrit (Bld) [Volume fraction] 47.5 % Normal 40-54 [facility] Comment on above: Performed By: #### L 100.0100, L500.4050 ####[facility] [address] [place], [address] Hemoglobin (Bld) [Mass/Vol] 15.7 g/dL Normal 13.0-16.5 [facility] Comment on above: Performed By: #### L 100.0100, L500.4050 ####[facility] [address] [place], [address] IG% 1.300 High 0.0-0.9 [facility] Comment on above: Result Comment: IG% - Immature Granulocytes (promyelocytes, myelocytes andmetamyelocytes) > 1% indicates that a LEFT SHIFT is Present. Performed By: #### L 100.0100, L500.4050 ####[facility] [address] [place], [address] Lymphocytes/100 WBC (Bld) 5.5 % Low 19-41 [facility] Comment on above: Performed By: #### L 100.0100, L500.4050 ####[facility] [address] [place], [address] MCH (RBC) [Entitic mass] 33.1 pg High 27.0-32.0 [facility] Comment on above: Performed By: #### L 100.0100, L500.4050 ####[facility] [address] [place], [address] MCHC (RBC) [Mass/Vol] 33.1 g/dL Normal 32-36 [facility] Comment on above: Performed By: #### L 100.0100, L500.4050 ####[facility] [address] [place], [address] MCV (RBC) [Entitic vol] 100.2 fL High 80-94 [facility] Comment on above: Performed By: #### L 100.0100, L500.4050 ####[facility] [address] [place], [address] Monocytes/100 WBC (Bld) 5.4 % Normal 0-10 [facility] Comment on above: Performed By: #### L 100.0100, L500.4050 ####[facility] [address] [place], [address] Neutrophils/100 WBC (Bld) 87.4 % High 47-70 [facility] Comment on above: Performed By: #### L 100.0100, L500.4050 ####[facility] [address] [place], [address] Nucleated RBC (Bld) [#/Vol] 0 10*3/uL Normal 0-5 [facility] Comment on above: Performed By: #### L 100.0100, L500.4050 ####[facility] [address] [place], [address] Platelet mean volume (Bld) [Entitic vol] 10.1 fL Normal 6.2-12.0 [facility] Comment on above: Performed By: #### L 100.0100, L500.4050 ####[facility] [address] [place], [address] Platelets (Bld) [#/Vol] 202 10*3/uL Normal 150-450 [facility] Comment on above: Performed By: #### L 100.0100, L500.4050 ####[facility] [address] [place], [address] RBC (Bld) [#/Vol] 4.74 10*6/uL Normal 4.6-6.2 [facility] Comment on above: Performed By: #### L 100.0100, L500.4050 ####[facility] [address] [place], [address] RDW SD 57.5 fl High 35.1-43.9 [facility] Comment on above: Performed By: #### L 100.0100, L500.4050 ####[facility] [address] [place], [address] WBC (Bld) [#/Vol] 14.1 10*3/uL High 4.4-11.0 [facility] Comment on above: Performed By: #### L 100.0100, L500.4050 ####[facility] [address] [place], [address] Comprehensive Metabolic Prof ilon 12-03-2024 Albumin [Mass/Vol] 3.0 g/dL Low 3.2-5.0 [facility] Comment on above: Performed By: #### L 100.0100, L500.4050 ####[facility] [address] [place], [address] Albumin/Globulin [Mass ratio] 0.8 {ratio} Low 0.9-2.4 [facility] Comment on above: Performed By: #### L 100.0100, L500.4050 ####[facility] [address] [place], [address] ALK P 52 U/L Normal 45-117 [facility] Comment on above: Performed By: #### L 100.0100, L500.4050 ####[facility] [address] [place], [address] ALT [Catalytic activity/Vol] 57 U/L Normal 16-61 [facility] Comment on above: Performed By: #### L 100.0100, L500.4050 ####[facility] [address] [place], [address] AST [Catalytic activity/Vol] 28 U/L Normal 15-37 [facility] Comment on above: Result Comment: Mode rate Hemolysis, Result may be falsely increased. Performed By: #### L 100.0100, L500.4050 ####[facility] [address] [place], [address] Bilirubin [Mass/Vol] 0.40 mg/dL Normal 0.20-1.00 [facility] Comment on above: Result Comment: For patients on eltrombopag therapy, use of Dimension [place] TBIL is not recommended. Performed By: #### L 100.0100, L500.4050 ####[facility] [address] [place], [address] BUN/CRE 14.6 RATIO Normal 10-20 [facility] Comment on above: Performed By: #### L 100.0100, L500.4050 ####[facility] [address] [place], [address] CA,Total 9.2 mg/dL Normal 8.5-10.1 [facility] Comment on above: Performed By: #### L 100.0100, L500.4050 ####[facility] [address] [place], [address] Chloride [Moles/Vol] 107 mmol/L Normal 98-107 [facility] Comment on above: Performed By: #### L 100.0100, L500.4050 ####[facility] [address] [place], [address] CO2 [Moles/Vol] 24.0 mmol/L Normal 21.0-32.0 [facility] Comment on above: Performed By: #### L 100.0100, L500.4050 ####[facility] [address] [place], [address] Creatinine [Mass/Vol] 1.23 mg/dL Normal 0.70-1.30 [facility] Comment on above: Result Comment: The validity of the calculated GFR GFRAA in patients over70 years has not been determined. Clinical correlation isessential. Performed By: #### L 100.0100, L500.4050 ####[facility] [address] [place], [address] ECRCL 92.05 ml/min Normal [facility] Comment on above: Performed By: #### L 100.0100, L500.4050 ####[facility] [address] [place], [address] EST GFR - AA 80 mL/min Normal >60 [facility] Comment on above: Result Comment: Afri can Swiss GFR Calc Performed By: #### L 100.0100, L500.4050 ####[facility] [address] [place], [address] GAP 9 Normal 5-15 [facility] Comment on above: Performed By: #### L 100.0100, L500.4050 ####[facility] [address] [place], [address] GFR/1.73 sq M.predicted among non-blacks MDRD (S/P/Bld) [Vol rate/Area] 66 mL/min/{1.73_m2} Normal >60 [facility] Comment on above: Result Comment: Non- GFR Calc Performed By: #### L 100.0100, L500.4050 ####[facility] [address] [place], [address] Globulin (S) [Mass/Vol] 4.0 g/dL Normal 2.2-4.2 [facility] Comment on above: Performed By: #### L 100.0100, L500.4050 ####[facility] [address] [place], [address] Glucose [Mass/Vol] 150 mg/dL High 74-106 [facility] Comment on above: Result Comment: Fast ing Glucose result greater than or equal to 126 mg/dLsuggests DIABETES MELLITUS per A.D.A. criteria. Performed By: #### L 100.0100, L500.4050 ####[facility] [address] [place], [address] Potassium [Moles/Vol] 4.2 mmol/L Normal 3.5-5.1 [facility] Comment on above: Result Comment: Mode rate Hemolysis, Result may be falsely increased. Performed By: #### L 100.0100, L500.4050 ####[facility] [address] [place], [address] Sodium [Moles/Vol] 140 mmol/L Normal 136-145 [facility] Comment on above: Performed By: #### L 100.0100, L500.4050 ####[facility] [address] [place], [address] T PROT 7.0 g/dL Normal 6.4-8.2 [facility] Comment on above: Performed By: #### L 100.0100, L500.4050 ####[facility] [address] [place], [address] Urea nitrogen [Mass/Vol] 18 mg/dL Normal 7-18 [facility] Comment on above: Performed By: #### L 100.0100, L500.4050 ####[facility] [address] [place], [address] Oncology Visit Reporton - Oncology Visit Report Normal [facility] Radiation Oncology Visiton 0 - Radiation Oncology Visit Normal [facility] CBC W/Diff, Automatedon 11-17 Absolute Lymph 0.72 X10 3/uL Low 0.83-4.51 [facility] Comment on above: Order Comment: PT WE NT TO RADIATION TX WILL STOP OUT ONCE DONE WITH THAT Performed By: #### L 100.0100, L500.4050 ####[facility] [address] [place], [address] Absolute Neut 11.1 X10 3/uL High 2.0-7.7 [facility] Comment on above: Order Comment: PT WE NT TO RADIATION TX WILL STOP OUT ONCE DONE WITH THAT Performed By: #### L 100.0100, L500.4050 ####[facility] [address] [place], [address] Basophils/100 WBC (Bld) 0.4 % Normal 0-1 [facility] Comment on above: Order Comment: PT WE NT TO RADIATION TX WILL STOP OUT ONCE DONE WITH THAT Performed By: #### L 100.0100, L500.4050 ####[facility] [address] [place], [address] Eosinophils/100 WBC (Bld) 0.1 % Normal 0-5 [facility] Comment on above: Order Comment: PT WE NT TO RADIATION TX WILL STOP OUT ONCE DONE WITH THAT Performed By: #### L 100.0100, L500.4050 ####[facility] [address] [place], [address] Erythrocyte distribution width (RBC) [Ratio] 15.2 % High 11.6-14.6 [facility] Comment on above: Order Comment: PT WE NT TO RADIATION TX WILL STOP OUT ONCE DONE WITH THAT Performed By: #### L 100.0100, L500.4050 ####[facility] [address] [place], [address] Hematocrit (Bld) [Volume fraction] 42.6 % Normal 40-54 [facility] Comment on above: Order Comment: PT WE NT TO RADIATION TX WILL STOP OUT ONCE DONE WITH THAT Performed By: #### L 100.0100, L500.4050 ####[facility] [address] [place], [address] Hemoglobin (Bld) [Mass/Vol] 14.8 g/dL Normal 13.0-16.5 [facility] Comment on above: Order Comment: PT WE NT TO RADIATION TX WILL STOP OUT ONCE DONE WITH THAT Performed By: #### L 100.0100, L500.4050 ####[facility] [address] [place], [address] IG% 1.900 High 0.0-0.9 [facility] Comment on above: Order Comment: PT WE NT TO RADIATION TX WILL STOP OUT ONCE DONE WITH THAT Result Comment: IG% - Immature Granulocytes (promyelocytes, myelocytes andmetamyelocytes) > 1% indicates that a LEFT SHIFT is Present. Performed By: #### L 100.0100, L500.4050 ####[facility] [address] [place], [address] Lymphocytes/100 WBC (Bld) 5.6 % Low 19-41 [facility] Comment on above: Order Comment: PT WE NT TO RADIATION TX WILL STOP OUT ONCE DONE WITH THAT Performed By: #### L 100.0100, L500.4050 ####[facility] [address] [place], [address] MCH (RBC) [Entitic mass] 34.0 pg High 27.0-32.0 [facility] Comment on above: Order Comment: PT WE NT TO RADIATION TX WILL STOP OUT ONCE DONE WITH THAT Performed By: #### L 100.0100, L500.4050 ####[facility] [address] [place], [address] MCHC (RBC) [Mass/Vol] 34.7 g/dL Normal 32-36 [facility] Comment on above: Order Comment: PT WE NT TO RADIATION TX WILL STOP OUT ONCE DONE WITH THAT Performed By: #### L 100.0100, L500.4050 ####[facility] [address] [place], [address] MCV (RBC) [Entitic vol] 97.9 fL High 80-94 [facility] Comment on above: Order Comment: PT WE NT TO RADIATION TX WILL STOP OUT ONCE DONE WITH THAT Performed By: #### L 100.0100, L500.4050 ####[facility] [address] [place], [address] Monocytes/100 WBC (Bld) 6.1 % Normal 0-10 [facility] Comment on above: Order Comment: PT WE NT TO RADIATION TX WILL STOP OUT ONCE DONE WITH THAT Performed By: #### L 100.0100, L500.4050 ####[facility] [address] [place], [address] Neutrophils/100 WBC (Bld) 85.9 % High 47-70 [facility] Comment on above: Order Comment: PT WE NT TO RADIATION TX WILL STOP OUT ONCE DONE WITH THAT Performed By: #### L 100.0100, L500.4050 ####[facility] [address] [place], [address] Nucleated RBC (Bld) [#/Vol] 0 10*3/uL Normal 0-5 [facility] Comment on above: Order Comment: PT WE NT TO RADIATION TX WILL STOP OUT ONCE DONE WITH THAT Performed By: #### L 100.0100, L500.4050 ####[facility] [address] [place], [address] Platelet mean volume (Bld) [Entitic vol] 9.7 fL Normal 6.2-12.0 [facility] Comment on above: Order Comment: PT WE NT TO RADIATION TX WILL STOP OUT ONCE DONE WITH THAT Performed By: #### L 100.0100, L500.4050 ####[facility] [address] [place], [address] Platelets (Bld) [#/Vol] 220 10*3/uL Normal 150-450 [facility] Comment on above: Order Comment: PT WE NT TO RADIATION TX WILL STOP OUT ONCE DONE WITH THAT Performed By: #### L 100.0100, L500.4050 ####[facility] [address] [place], [address] RBC (Bld) [#/Vol] 4.35 10*6/uL Low 4.6-6.2 [facility] Comment on above: Order Comment: PT WE NT TO RADIATION TX WILL STOP OUT ONCE DONE WITH THAT Performed By: #### L 100.0100, L500.4050 ####[facility] [address] [place], [address] RDW SD 55.3 fl High 35.1-43.9 [facility] Comment on above: Order Comment: PT WE NT TO RADIATION TX WILL STOP OUT ONCE DONE WITH THAT Performed By: #### L 100.0100, L500.4050 ####[facility] [address] [place], [address] WBC (Bld) [#/Vol] 12.9 10*3/uL High 4.4-11.0 [facility] Comment on above: Order Comment: PT WE NT TO RADIATION TX WILL STOP OUT ONCE DONE WITH THAT Performed By: #### L 100.0100, L500.4050 ####[facility] [address] [place], [address] Comprehensive Metabolic Prof ilon 11-26-2024 Albumin [Mass/Vol] 3.0 g/dL Low 3.2-5.0 [facility] Comment on above: Order Comment: PT WE NT TO RADIATION TX WILL STOP OUT ONCE DONE WITH THAT Performed By: #### L 100.0100, L500.4050 ####[facility] [address] [place], [address] Albumin/Globulin [Mass ratio] 0.8 {ratio} Low 0.9-2.4 [facility] Comment on above: Order Comment: PT WE NT TO RADIATION TX WILL STOP OUT ONCE DONE WITH THAT Performed By: #### L 100.0100, L500.4050 ####[facility] [address] [place], [address] ALK P 55 U/L Normal 45-117 [facility] Comment on above: Order Comment: PT WE NT TO RADIATION TX WILL STOP OUT ONCE DONE WITH THAT Performed By: #### L 100.0100, L500.4050 ####[facility] [address] [place], [address] ALT [Catalytic activity/Vol] 57 U/L Normal 16-61 [facility] Comment on above: Order Comment: PT WE NT TO RADIATION TX WILL STOP OUT ONCE DONE WITH THAT Performed By: #### L 100.0100, L500.4050 ####[facility] [address] [place], [address] AST [Catalytic activity/Vol] 17 U/L Normal 15-37 [facility] Comment on above: Order Comment: PT WE NT TO RADIATION TX WILL STOP OUT ONCE DONE WITH THAT Performed By: #### L 100.0100, L500.4050 ####[facility] [address] [place], [address] Bilirubin [Mass/Vol] 0.30 mg/dL Normal 0.20-1.00 [facility] Comment on above: Order Comment: PT WE NT TO RADIATION TX WILL STOP OUT ONCE DONE WITH THAT Result Comment: For patients on eltrombopag therapy, use of Dimension [place] TBIL is not recommended. Performed By: #### L 100.0100, L500.4050 ####[facility] [address] [place], [address] BUN/CRE 21.2 RATIO High 10-20 [facility] Comment on above: Order Comment: PT WE NT TO RADIATION TX WILL STOP OUT ONCE DONE WITH THAT Performed By: #### L 100.0100, L500.4050 ####[facility] [address] [place], [address] CA,Total 9.0 mg/dL Normal 8.5-10.1 [facility] Comment on above: Order Comment: PT WE NT TO RADIATION TX WILL STOP OUT ONCE DONE WITH THAT Performed By: #### L 100.0100, L500.4050 ####[facility] [address] [place], [address] Chloride [Moles/Vol] 107 mmol/L Normal 98-107 [facility] Comment on above: Order Comment: PT WE NT TO RADIATION TX WILL STOP OUT ONCE DONE WITH THAT Performed By: #### L 100.0100, L500.4050 ####[facility] [address] [place], [address] CO2 [Moles/Vol] 25.0 mmol/L Normal 21.0-32.0 [facility] Comment on above: Order Comment: PT WE NT TO RADIATION TX WILL STOP OUT ONCE DONE WITH THAT Performed By: #### L 100.0100, L500.4050 ####[facility] [address] [place], [address] Creatinine [Mass/Vol] 1.04 mg/dL Normal 0.70-1.30 [facility] Comment on above: Order Comment: PT WE NT TO RADIATION TX WILL STOP OUT ONCE DONE WITH THAT Result Comment: The validity of the calculated GFR GFRAA in patients over70 years has not been determined. Clinical correlation isessential. Performed By: #### L 100.0100, L500.4050 ####[facility] [address] [place], [address] ECRCL 108.86 ml/min Normal [facility] Comment on above: Order Comment: PT WE NT TO RADIATION TX WILL STOP OUT ONCE DONE WITH THAT Performed By: #### L 100.0100, L500.4050 ####[facility] [address] [place], [address] EST GFR - AA 97 mL/min Normal >60 [facility] Comment on above: Order Comment: PT WE NT TO RADIATION TX WILL STOP OUT ONCE DONE WITH THAT Result Comment: Afri can Swiss GFR Calc Performed By: #### L 100.0100, L500.4050 ####[facility] [address] [place], [address] GAP 9 Normal 5-15 [facility] Comment on above: Order Comment: PT WE NT TO RADIATION TX WILL STOP OUT ONCE DONE WITH THAT Performed By: #### L 100.0100, L500.4050 ####[facility] [address] [place], [address] GFR/1.73 sq M.predicted among non-blacks MDRD (S/P/Bld) [Vol rate/Area] 80 mL/min/{1.73_m2} Normal >60 [place] Comment on above: Order Comment: PT WE NT TO RADIATION TX WILL STOP OUT ONCE DONE WITH THAT Result Comment: Non- GFR Calc Performed By: #### L 100.0100, L500.4050 ####[facility] [address] [place], [address] Globulin (S) [Mass/Vol] 3.8 g/dL Normal 2.2-4.2 [facility] Comment on above: Order Comment: PT WE NT TO RADIATION TX WILL STOP OUT ONCE DONE WITH THAT Performed By: #### L 100.0100, L500.4050 ####[facility] [address] [place], [address] Glucose [Mass/Vol] 119 mg/dL High 74-106 [facility] Comment on above: Order Comment: PT WE NT TO RADIATION TX WILL STOP OUT ONCE DONE WITH THAT Result Comment: Fast ing Glucose result from 100 to 125 mg/dLsuggests IMPAIRED HOMEOSTASIS per A.D.A. criteria. Performed By: #### L 100.0100, L500.4050 ####[facility] [address] [place], [address] Potassium [Moles/Vol] 4.2 mmol/L Normal 3.5-5.1 [facility] Comment on above: Order Comment: PT WE NT TO RADIATION TX WILL STOP OUT ONCE DONE WITH THAT Performed By: #### L 100.0100, L500.4050 ####[facility] [address] [place], [address] Sodium [Moles/Vol] 140 mmol/L Normal 136-145 [facility] Comment on above: Order Comment: PT WE NT TO RADIATION TX WILL STOP OUT ONCE DONE WITH THAT Performed By: #### L 100.0100, L500.4050 ####[facility] [address] [place], [address] T PROT 6.8 g/dL Normal 6.4-8.2 [facility] Comment on above: Order Comment: PT WE NT TO RADIATION TX WILL STOP OUT ONCE DONE WITH THAT Performed By: #### L 100.0100, L500.4050 ####[facility] [address] [place], [address] Urea nitrogen [Mass/Vol] 22 mg/dL High 7-18 [facility] Comment on above: Order Comment: PT WE NT TO RADIATION TX WILL STOP OUT ONCE DONE WITH THAT Performed By: #### L 100.0100, L500.4050 ####[facility] [address] [place], [address] Oncology Visit Reporton 02-1 0-2024 Oncology Visit Report Normal [facility] Radiation Oncology Visiton 0 2--2024 Radiation Oncology Visit Normal [facility] CBC W/Diff, Automatedon 02-0 -2024 Absolute Lymph 1.11 X10 3/uL Normal 0.83-4.51 [facility] Comment on above: Performed By: #### L 100.0100, L500.4050 ####[facility] [address] [place], [address] Absolute Neut 10.9 X10 3/uL High 2.0-7.7 [facility] Comment on above: Performed By: #### L 100.0100, L500.4050 ####[facility] [address] [place], [address] Basophils/100 WBC (Bld) 0.2 % Normal 0-1 [facility] Comment on above: Performed By: #### L 100.0100, L500.4050 ####[facility] [address] [place], [address] Eosinophils/100 WBC (Bld) 0.1 % Normal 0-5 [facility] Comment on above: Performed By: #### L 100.0100, L500.4050 ####[facility] [address] [place], [address] Erythrocyte distribution width (RBC) [Ratio] 14.9 % High 11.6-14.6 [facility] Comment on above: Performed By: #### L 100.0100, L500.4050 ####[facility] [address] [place], [address] Hematocrit (Bld) [Volume fraction] 44.0 % Normal 40-54 [facility] Comment on above: Performed By: #### L 100.0100, L500.4050 ####[facility] [address] [place], [address] Hemoglobin (Bld) [Mass/Vol] 14.8 g/dL Normal 13.0-16.5 [facility] Comment on above: Performed By: #### L 100.0100, L500.4050 ####[facility] [address] [place], [address] IG% 1.400 High 0.0-0.9 [facility] Comment on above: Result Comment: IG% - Immature Granulocytes (promyelocytes, myelocytes andmetamyelocytes) > 1% indicates that a LEFT SHIFT is Present. Performed By: #### L 100.0100, L500.4050 ####[facility] [address] [place], [address] Lymphocytes/100 WBC (Bld) 8.4 % Low 19-41 [facility] Comment on above: Performed By: #### L 100.0100, L500.4050 ####[facility] [address] [place], [address] MCH (RBC) [Entitic mass] 33.0 pg High 27.0-32.0 [facility] Comment on above: Performed By: #### L 100.0100, L500.4050 ####[facility] [address] [place], [address] MCHC (RBC) [Mass/Vol] 33.6 g/dL Normal 32-36 [facility] Comment on above: Performed By: #### L 100.0100, L500.4050 ####[facility] [address] [place], [address] MCV (RBC) [Entitic vol] 98.0 fL High 80-94 [facility] Comment on above: Performed By: #### L 100.0100, L500.4050 ####[facility] [address] [place], [address] Monocytes/100 WBC (Bld) 8.1 % Normal 0-10 [facility] Comment on above: Performed By: #### L 100.0100, L500.4050 ####[facility] [address] [place], [address] Neutrophils/100 WBC (Bld) 81.8 % High 47-70 [facility] Comment on above: Performed By: #### L 100.0100, L500.4050 ####[facility] [address] [place], [address] Nucleated RBC (Bld) [#/Vol] 0 10*3/uL Normal 0-5 [facility] Comment on above: Performed By: #### L 100.0100, L500.4050 ####[facility] [address] [place], [address] Platelet mean volume (Bld) [Entitic vol] 9.7 fL Normal 6.2-12.0 [facility] Comment on above: Performed By: #### L 100.0100, L500.4050 ####[facility] [address] [place], [address] Platelets (Bld) [#/Vol] 221 10*3/uL Normal 150-450 [facility] Comment on above: Performed By: #### L 100.0100, L500.4050 ####[facility] [address] [place], [address] RBC (Bld) [#/Vol] 4.49 10*6/uL Low 4.6-6.2 [facility] Comment on above: Performed By: #### L 100.0100, L500.4050 ####[facility] [address] [place], [address] RDW SD 54.1 fl High 35.1-43.9 [facility] Comment on above: Performed By: #### L 100.0100, L500.4050 ####[facility] [address] [place], [address] WBC (Bld) [#/Vol] 13.3 10*3/uL High 4.4-11.0 [facility] Comment on above: Performed By: #### L 100.0100, L500.4050 ####[facility] [address] [place], [address] Comprehensive Metabolic Prof ilon 11-19-2024 Albumin [Mass/Vol] 3.0 g/dL Low 3.2-5.0 [facility] Comment on above: Performed By: #### L 100.0100, L500.4050 ####[facility] [address] [place], [address] Albumin/Globulin [Mass ratio] 0.8 {ratio} Low 0.9-2.4 [facility] Comment on above: Performed By: #### L 100.0100, L500.4050 ####[facility] [address] [place], [address] ALK P 58 U/L Normal 45-117 [facility] Comment on above: Performed By: #### L 100.0100, L500.4050 ####[facility] [address] [place], [address] ALT [Catalytic activity/Vol] 56 U/L Normal 16-61 [facility] Comment on above: Performed By: #### L 100.0100, L500.4050 ####[facility] [address] [place], [address] AST [Catalytic activity/Vol] 11 U/L Low 15-37 [facility] Comment on above: Performed By: #### L 100.0100, L500.4050 ####[facility] [address] [place], [address] Bilirubin [Mass/Vol] 0.20 mg/dL Normal 0.20-1.00 [facility] Comment on above: Result Comment: For patients on eltrombopag therapy, use of Dimension [place] TBIL is not recommended. Performed By: #### L 100.0100, L500.4050 ####[facility] [address] [place], [address] BUN/CRE 17.8 RATIO Normal 10-20 [facility] Comment on above: Performed By: #### L 100.0100, L500.4050 ####[facility] [address] [place], [address] CA,Total 8.9 mg/dL Normal 8.5-10.1 [facility] Comment on above: Performed By: #### L 100.0100, L500.4050 ####[facility] [address] [place], [address] Chloride [Moles/Vol] 105 mmol/L Normal 98-107 [facility] Comment on above: Performed By: #### L 100.0100, L500.4050 ####[facility] [address] [place], [address] CO2 [Moles/Vol] 24.0 mmol/L Normal 21.0-32.0 [facility] Comment on above: Performed By: #### L 100.0100, L500.4050 ####[facility] [address] [place], [address] Creatinine [Mass/Vol] 1.07 mg/dL Normal 0.70-1.30 [facility] Comment on above: Result Comment: The validity of the calculated GFR GFRAA in patients over70 years has not been determined. Clinical correlation isessential. Performed By: #### L 100.0100, L500.4050 ####[facility] [address] [place], [address] ECRCL 105.81 ml/min Normal [facility] Comment on above: Performed By: #### L 100.0100, L500.4050 ####[facility] [address] [place], [address] EST GFR - AA 94 mL/min Normal >60 [facility] Comment on above: Result Comment: Afri can Swiss GFR Calc Performed By: #### L 100.0100, L500.4050 ####[facility] [address] [place], [address] GAP 8 Normal 5-15 [facility] Comment on above: Performed By: #### L 100.0100, L500.4050 ####[facility] [address] [place], [address] GFR/1.73 sq M.predicted among non-blacks MDRD (S/P/Bld) [Vol rate/Area] 78 mL/min/{1.73_m2} Normal >60 [facility] Comment on above: Result Comment: Non- GFR Calc Performed By: #### L 100.0100, L500.4050 ####[facility] [address] [place], [address] Globulin (S) [Mass/Vol] 3.7 g/dL Normal 2.2-4.2 [facility] Comment on above: Performed By: #### L 100.0100, L500.4050 ####[facility] [address] [place], [address] Glucose [Mass/Vol] 104 mg/dL Normal 74-106 [facility] Comment on above: Result Comment: Fast ing Glucose result from 100 to 125 mg/dLsuggests IMPAIRED HOMEOSTASIS per A.D.A. criteria. Performed By: #### L 100.0100, L500.4050 ####[facility] [address] [place], [address] Potassium [Moles/Vol] 4.1 mmol/L Normal 3.5-5.1 [facility] Comment on above: Performed By: #### L 100.0100, L500.4050 ####[facility] [address] [place], [address] Sodium [Moles/Vol] 138 mmol/L Normal 136-145 [facility] Comment on above: Performed By: #### L 100.0100, L500.4050 ####[facility] [address] [place], [address] T PROT 6.7 g/dL Normal 6.4-8.2 [facility] Comment on above: Performed By: #### L 100.0100, L500.4050 ####[facility] [address] [place], [address] Urea nitrogen [Mass/Vol] 19 mg/dL High 7-18 [facility] Comment on above: Performed By: #### L 100.0100, L500.4050 ####[facility] [address] [place], [address] Oncology Visit Reporton 02-0 Oncology Visit Report Normal [facility] Radiation Oncology Visiton 0 - Radiation Oncology Visit Normal [facility] CBC W/Diff, Automatedon -2 Absolute Lymph 1.33 X10 3/uL Normal 0.83-4.51 [facility] Comment on above: Performed By: #### L 100.0100, L500.4050 ####[facility] [address] [place], [address] Absolute Neut 12.6 X10 3/uL High 2.0-7.7 [facility] Comment on above: Performed By: #### L 100.0100, L500.4050 ####[facility] [address] [place], [address] Basophils/100 WBC (Bld) 0.5 % Normal 0-1 [facility] Comment on above: Performed By: #### L 100.0100, L500.4050 ####[facility] [address] [place], [address] Eosinophils/100 WBC (Bld) 0.1 % Normal 0-5 [facility] Comment on above: Performed By: #### L 100.0100, L500.4050 ####[facility] [address] [place], [address] Erythrocyte distribution width (RBC) [Ratio] 14.5 % Normal 11.6-14.6 [facility] Comment on above: Performed By: #### L 100.0100, L500.4050 ####[facility] [address] [place], [address] Hematocrit (Bld) [Volume fraction] 43.7 % Normal 40-54 [facility] Comment on above: Performed By: #### L 100.0100, L500.4050 ####[facility] [address] [place], [address] Hemoglobin (Bld) [Mass/Vol] 14.9 g/dL Normal 13.0-16.5 [facility] Comment on above: Performed By: #### L 100.0100, L500.4050 ####[facility] [address] [place], [address] IG% 1.400 High 0.0-0.9 [facility] Comment on above: Result Comment: IG% - Immature Granulocytes (promyelocytes, myelocytes andmetamyelocytes) > 1% indicates that a LEFT SHIFT is Present. Performed By: #### L 100.0100, L500.4050 ####[facility] [address] [place], [address] Lymphocytes/100 WBC (Bld) 8.6 % Low 19-41 [facility] Comment on above: Performed By: #### L 100.0100, L500.4050 ####[facility] [address] [place], [address] MCH (RBC) [Entitic mass] 32.9 pg High 27.0-32.0 [facility] Comment on above: Performed By: #### L 100.0100, L500.4050 ####[facility] [address] [place], [address] MCHC (RBC) [Mass/Vol] 34.1 g/dL Normal 32-36 [facility] Comment on above: Performed By: #### L 100.0100, L500.4050 ####[facility] [address] [place], [address] MCV (RBC) [Entitic vol] 96.5 fL High 80-94 [facility] Comment on above: Performed By: #### L 100.0100, L500.4050 ####[facility] [address] [place], [address] Monocytes/100 WBC (Bld) 7.6 % Normal 0-10 [facility] Comment on above: Performed By: #### L 100.0100, L500.4050 ####[facility] [address] [place], [address] Neutrophils/100 WBC (Bld) 81.8 % High 47-70 [facility] Comment on above: Performed By: #### L 100.0100, L500.4050 ####[facility] [address] [place], [address] Nucleated RBC (Bld) [#/Vol] 0 10*3/uL Normal 0-5 [facility] Comment on above: Performed By: #### L 100.0100, L500.4050 ####[facility] [address] [place], [address] Platelet mean volume (Bld) [Entitic vol] 9.8 fL Normal 6.2-12.0 [facility] Comment on above: Performed By: #### L 100.0100, L500.4050 ####[facility] [address] [place], [address] Platelets (Bld) [#/Vol] 216 10*3/uL Normal 150-450 [facility] Comment on above: Performed By: #### L 100.0100, L500.4050 ####[facility] [address] [place], [address] RBC (Bld) [#/Vol] 4.53 10*6/uL Low 4.6-6.2 [facility] Comment on above: Performed By: #### L 100.0100, L500.4050 ####[facility] [address] [place], [address] RDW SD 51.7 fl High 35.1-43.9 [facility] Comment on above: Performed By: #### L 100.0100, L500.4050 ####[facility] [address] [place], [address] WBC (Bld) [#/Vol] 15.4 10*3/uL High 4.4-11.0 [facility] Comment on above: Performed By: #### L 100.0100, L500.4050 ####[facility] [address] [place], [address] Comprehensive Metabolic Prof ilon 11-12-2024 Albumin [Mass/Vol] 3.0 g/dL Low 3.2-5.0 [facility] Comment on above: Performed By: #### L 100.0100, L500.4050 ####[facility] [address] [place], [address] Albumin/Globulin [Mass ratio] 0.8 {ratio} Low 0.9-2.4 [facility] Comment on above: Performed By: #### L 100.0100, L500.4050 ####[facility] [address] [place], [address] ALK P 60 U/L Normal 45-117 [facility] Comment on above: Performed By: #### L 100.0100, L500.4050 ####[facility] [address] [place], [address] ALT [Catalytic activity/Vol] 60 U/L Normal 16-61 [facility] Comment on above: Performed By: #### L 100.0100, L500.4050 ####[facility] [address] [place], [address] AST [Catalytic activity/Vol] 14 U/L Low 15-37 [facility] Comment on above: Performed By: #### L 100.0100, L500.4050 ####[facility] [address] [place], [address] Bilirubin [Mass/Vol] 0.30 mg/dL Normal 0.20-1.00 [facility] Comment on above: Result Comment: For patients on eltrombopag therapy, use of Dimension [place] TBIL is not recommended. Performed By: #### L 100.0100, L500.4050 ####[facility] [address] [place], [address] BUN/CRE 23.8 RATIO High 10-20 [facility] Comment on above: Performed By: #### L 100.0100, L500.4050 ####[facility] [address] [place], [address] CA,Total 9.4 mg/dL Normal 8.5-10.1 [facility] Comment on above: Performed By: #### L 100.0100, L500.4050 ####[facility] [address] [place], [address] Chloride [Moles/Vol] 107 mmol/L Normal 98-107 [facility] Comment on above: Performed By: #### L 100.0100, L500.4050 ####[facility] [address] [place], [address] CO2 [Moles/Vol] 25.0 mmol/L Normal 21.0-32.0 [facility] Comment on above: Performed By: #### L 100.0100, L500.4050 ####[facility] [address] [place], [address] Creatinine [Mass/Vol] 1.01 mg/dL Normal 0.70-1.30 [facility] Comment on above: Result Comment: The validity of the calculated GFR GFRAA in patients over70 years has not been determined. Clinical correlation isessential. Performed By: #### L 100.0100, L500.4050 ####[facility] [address] [place], [address] ECRCL 112.10 ml/min Normal [facility] Comment on above: Performed By: #### L 100.0100, L500.4050 ####[facility] [address] [place], [address] EST GFR - AA 101 mL/min Normal >60 [facility] Comment on above: Result Comment: Afri can Swiss GFR Calc Performed By: #### L 100.0100, L500.4050 ####[facility] [address] [place], [address] GAP 7 Normal 5-15 [facility] Comment on above: Performed By: #### L 100.0100, L500.4050 ####[facility] [address] [place], [address] GFR/1.73 sq M.predicted among non-blacks MDRD (S/P/Bld) [Vol rate/Area] 83 mL/min/{1.73_m2} Normal >60 [facility] Comment on above: Result Comment: Non- GFR Calc Performed By: #### L 100.0100, L500.4050 ####[facility] [address] [place], [address] Globulin (S) [Mass/Vol] 4.0 g/dL Normal 2.2-4.2 [facility] Comment on above: Performed By: #### L 100.0100, L500.4050 ####[facility] [address] [place], [address] Glucose [Mass/Vol] 105 mg/dL Normal 74-106 [facility] Comment on above: Result Comment: Fast ing Glucose result from 100 to 125 mg/dLsuggests IMPAIRED HOMEOSTASIS per A.D.A. criteria. Performed By: #### L 100.0100, L500.4050 ####[facility] [address] [place], [address] Potassium [Moles/Vol] 4.0 mmol/L Normal 3.5-5.1 [facility] Comment on above: Performed By: #### L 100.0100, L500.4050 ####[facility] [address] [place], [address] Sodium [Moles/Vol] 139 mmol/L Normal 136-145 [facility] Comment on above: Performed By: #### L 100.0100, L500.4050 ####[facility] [address] [place], [address] T PROT 7.0 g/dL Normal 6.4-8.2 [facility] Comment on above: Performed By: #### L 100.0100, L500.4050 ####[facility] [address] [place], [address] Urea nitrogen [Mass/Vol] 24 mg/dL High 7-18 [facility] Comment on above: Performed By: #### L 100.0100, L500.4050 ####[facility] [address] [place], [address] Oncology Visit Reporton 10-18 Oncology Visit Report Normal [facility] Radiation Oncology Visiton 0 11-08-2024 Radiation Oncology Visit Normal [facility] CBC W/Diff, Automatedon - PATH REV Reviewed Normal [facility] Comment on above: Result Comment: Neut rophilic leukocytosis with left shift.MACROCYTOSISClinical correlation necessary.Raul Unger M.D. 11/06/24 AMENDED REPORT 11/06/24 1320 PATH REV previously reported as: February mickie Performed By: #### L 100.0100, L500.4050 ####[facility] [address] [place], [address] Comprehensive Metabolic Prof ilon 11-05-2024 Albumin [Mass/Vol] 2.9 g/dL Low 3.2-5.0 [facility] Comment on above: Performed By: #### L 100.0100, L500.4050 ####[facility] [address] [place], [address] Albumin/Globulin [Mass ratio] 0.7 {ratio} Low 0.9-2.4 [facility] Comment on above: Performed By: #### L 100.0100, L500.4050 ####[facility] [address] [place], [address] ALK P 64 U/L Normal 45-117 [facility] Comment on above: Performed By: #### L 100.0100, L500.4050 ####[facility] [address] [place], [address] ALT [Catalytic activity/Vol] 48 U/L Normal 16-61 [facility] Comment on above: Performed By: #### L 100.0100, L500.4050 ####[facility] [address] [place], [address] AST [Catalytic activity/Vol] 14 U/L Low 15-37 [facility] Comment on above: Performed By: #### L 100.0100, L500.4050 ####[facility] [address] [place], [address] Bilirubin [Mass/Vol] 0.30 mg/dL Normal 0.20-1.00 [facility] Comment on above: Result Comment: For patients on eltrombopag therapy, use of Dimension [place] TBIL is not recommended. Performed By: #### L 100.0100, L500.4050 ####[facility] [address] [place], [address] BUN/CRE 22.5 RATIO High 10-20 [facility] Comment on above: Performed By: #### L 100.0100, L500.4050 ####[facility] [id number] [place], [address] CA,Total 9.1 mg/dL Normal 8.5-10.1 [facility] Comment on above: Performed By: #### L 100.0100, L500.4050 ####[facility] [id number] [place], [address] Chloride [Moles/Vol] 110 mmol/L High 98-107 [facility] Comment on above: Performed By: #### L 100.0100, L500.4050 ####[facility] [id number] [place], [address] CO2 [Moles/Vol] 25.0 mmol/L Normal 21.0-32.0 [facility] Comment on above: Performed By: #### L 100.0100, L500.4050 ####[facility] [address] [place], [address] Creatinine [Mass/Vol] 1.02 mg/dL Normal 0.70-1.30 [facility] [facility] Comment on above: Result Comment: The validity of the calculated GFR GFRAA in patients over70 years has not been determined. Clinical correlation isessential. Performed By: #### L 100.0100, L500.4050 ####[facility] [address] [place], [address] ECRCL 111.11 ml/min Normal [facility] Comment on above: Performed By: #### L 100.0100, L500.4050 ####[facility] [address] [place], [address] EST GFR - AA 100 mL/min Normal >60 [facility] Comment on above: Result Comment: Afri can Swiss GFR Calc Performed By: #### L 100.0100, L500.4050 ####[facility] [address] [place], [address] GAP 6 Normal 5-15 [facility] Comment on above: Performed By: #### L 100.0100, L500.4050 ####[facility] [address] [place], [address] GFR/1.73 sq M.predicted among non-blacks MDRD (S/P/Bld) [Vol rate/Area] 82 mL/min/{1.73_m2} Normal >60 [place] Comment on above: Result Comment: Non- GFR Calc Performed By: #### L 100.0100, L500.4050 ####[facility] [address] [place], [address] Globulin (S) [Mass/Vol] 3.9 g/dL Normal 2.2-4.2 [facility] Comment on above: Performed By: #### L 100.0100, L500.4050 ####[facility] [address] [place], [address] Glucose [Mass/Vol] 123 mg/dL High 74-106 [facility] Comment on above: Result Comment: Fast ing Glucose result from 100 to 125 mg/dLsuggests IMPAIRED HOMEOSTASIS per A.D.A. criteria. Performed By: #### L 100.0100, L500.4050 ####[facility] [address] [place], [address] Potassium [Moles/Vol] 3.9 mmol/L Normal 3.5-5.1 [facility] Comment on above: Performed By: #### L 100.0100, L500.4050 ####[facility] [address] [place], [address] Sodium [Moles/Vol] 140 mmol/L Normal 136-145 [facility] Comment on above: Performed By: #### L 100.0100, L500.4050 ####[facility] [address] [place], [address] T PROT 6.8 g/dL Normal 6.4-8.2 [facility] Comment on above: Performed By: #### L 100.0100, L500.4050 ####[facility] [address] [place], [address] Urea nitrogen [Mass/Vol] 23 mg/dL High 7-18 [facility] Comment on above: Performed By: #### L 100.0100, L500.4050 ####[facility] [address] [place], [address] Erythrocyte morphology asses smentOrdered By: Vielka Lane on 11-05-2024 RBC morphology finding Nom (Bld) NORM C+C NORMAL NORM C&C [facility] Oncology Visit Reporton 10-18 Oncology Visit Report Normal [facility] Pathologist review Cheng (Unsp spec) [Interp]Ordered By: Vielka Lane on 11-05-2024 Differential Pathologist's Review Reviewed [facility] Comment on above: Previous reported re sult: Faviola corado Edited by: CAYETANO on 11/06/24:1320Neutrophilic leukocytosis with left shift.MACROCYTOSISClinical correlation necessary.Raul Unger M.D. 11/06/24 AMENDED REPORT 11/06/24 1320 PATH REV previously reported as: Faviola corado Platelet estimateOrdered By: Vielka Lane on 11-05-2024 Platelets LM Ql (Bld) ADEQUATE ADEQ [facility] Platelets LM Ql (Bld)Ordered By: Vielka Lane on 11-05-2024 Platelet Estimate ADEQUATE [facility] RBC morphology finding Nom ( Bld)Ordered By: Vielka Lane on 11-05-2024 Red Blood Cell Morphology NORM C+C NORMAL NORM C&C [facility] Review by pathologistOrdered By: Vielka Lane on 11-05-2024 Pathologist review Cheng (Unsp spec) [Interp] Reviewed [facility] Comment on above: Previous reported re sult: Faviola corado Edited by: CAYETANO on 11/06/24:1320Neutrophilic leukocytosis with left shift.MACROCYTOSISClinical correlation necessary.Raul Unger M.D. 11/06/24 AMENDED REPORT 11/06/24 1320 PATH REV previously reported as: February Radiation Oncology Visiton 0 11-01-2024 Radiation Oncology Visit Normal [facility] CBC W/Diff, Automatedon - Absolute Lymph 1.64 X10 3/uL Normal 0.83-4.51 [facility] Comment on above: Performed By: #### L 500.4050, L100.0100 ####[facility] [address] [place], [address] Absolute Neut 12.6 X10 3/uL High 2.0-7.7 [facility] Comment on above: Performed By: #### L 500.4050, L100.0100 ####[facility] [address] [place], [address] Basophils/100 WBC (Bld) 0.4 % Normal 0-1 [facility] Comment on above: Performed By: #### L 500.4050, L100.0100 ####[facility] [address] [place], [address] Eosinophils/100 WBC (Bld) 0.1 % Normal 0-5 [facility] Comment on above: Performed By: #### L 500.4050, L100.0100 ####[facility] [address] [place], [address] Erythrocyte distribution width (RBC) [Ratio] 14.2 % Normal 11.6-14.6 [facility] Comment on above: Performed By: #### L 500.4050, L100.0100 ####[facility] [address] [place], [address] Hematocrit (Bld) [Volume fraction] 45.2 % Normal 40-54 [facility] Comment on above: Performed By: #### L 500.4050, L100.0100 ####[facility] [address] [place], [address] Hemoglobin (Bld) [Mass/Vol] 15.4 g/dL Normal 13.0-16.5 [facility] Comment on above: Performed By: #### L 500.4050, L100.0100 ####[facility] [address] [place], [address] IG% 1.500 High 0.0-0.9 [facility] Comment on above: Result Comment: IG% - Immature Granulocytes (promyelocytes, myelocytes andmetamyelocytes) > 1% indicates that a LEFT SHIFT is Present. Performed By: #### L 500.4050, L100.0100 ####[facility] [address] [place], [address] Lymphocytes/100 WBC (Bld) 10.5 % Low 19-41 [facility] Comment on above: Performed By: #### L 500.4050, L100.0100 ####[facility] [address] [place], [address] MCH (RBC) [Entitic mass] 32.7 pg High 27.0-32.0 [facility] Comment on above: Performed By: #### L 500.4050, L100.0100 ####[facility] [address] [place], [address] MCHC (RBC) [Mass/Vol] 34.1 g/dL Normal 32-36 [facility] Comment on above: Performed By: #### L 500.4050, L100.0100 ####[facility] [address] [place], [address] MCV (RBC) [Entitic vol] 96.0 fL High 80-94 [facility] Comment on above: Performed By: #### L 500.4050, L100.0100 ####[facility] [address] [place], [address] Monocytes/100 WBC (Bld) 6.6 % Normal 0-10 [facility] Comment on above: Performed By: #### L 500.4050, L100.0100 ####[facility] [address] [place], [address] Neutrophils/100 WBC (Bld) 80.9 % High 47-70 [facility] Comment on above: Performed By: #### L 500.4050, L100.0100 ####[facility] [address] [place], [address] Nucleated RBC (Bld) [#/Vol] 0 10*3/uL Normal 0-5 [facility] Comment on above: Performed By: #### L 500.4050, L100.0100 ####[facility] [address] [place], [address] Platelet mean volume (Bld) [Entitic vol] 9.7 fL Normal 6.2-12.0 [facility] Comment on above: Performed By: #### L 500.4050, L100.0100 ####[facility] [address] [place], [address] Platelets (Bld) [#/Vol] 213 10*3/uL Normal 150-450 [facility] Comment on above: Performed By: #### L 500.4050, L100.0100 ####[facility] [address] [place], [address] RBC (Bld) [#/Vol] 4.71 10*6/uL Normal 4.6-6.2 [facility] Comment on above: Performed By: #### L 500.4050, L100.0100 ####[facility] [address] [place], [address] RDW SD 50.4 fl High 35.1-43.9 [facility] Comment on above: Performed By: #### L 500.4050, L100.0100 ####[facility] [address] [place], [address] WBC (Bld) [#/Vol] 15.6 10*3/uL High 4.4-11.0 [facility] Comment on above: Performed By: #### L 500.4050, L100.0100 ####[facility] [address] [place], [address] Comprehensive Metabolic Prof ilon 10-29-2024 Albumin [Mass/Vol] 3.0 g/dL Low 3.2-5.0 [facility] Comment on above: Performed By: #### L 500.4050, L100.0100 ####[facility] [address] [place], [address] Albumin/Globulin [Mass ratio] 0.7 {ratio} Low 0.9-2.4 [facility] Comment on above: Performed By: #### L 500.4050, L100.0100 ####[facility] [address] [place], [address] ALK P 63 U/L Normal 45-117 [facility] Comment on above: Performed By: #### L 500.4050, L100.0100 ####[facility] [address] [place], [address] ALT [Catalytic activity/Vol] 37 U/L Normal 16-61 [facility] Comment on above: Performed By: #### L 500.4050, L100.0100 ####[facility] [address] [place], [address] AST [Catalytic activity/Vol] 17 U/L Normal 15-37 [facility] Comment on above: Result Comment: Mode rate Hemolysis, Result may be falsely increased. Performed By: #### L 500.4050, L100.0100 ####[facility] [address] [place], [address] Bilirubin [Mass/Vol] 0.30 mg/dL Normal 0.20-1.00 [facility] Comment on above: Result Comment: For patients on eltrombopag therapy, use of Dimension [place] TBIL is not recommended. Performed By: #### L 500.4050, L100.0100 ####[facility] [address] [place], [address] BUN/CRE 23.2 RATIO High 10-20 [facility] Comment on above: Performed By: #### L 500.4050, L100.0100 ####[facility] [address] [place], [address] CA,Total 9.0 mg/dL Normal 8.5-10.1 [facility] Comment on above: Performed By: #### L 500.4050, L100.0100 ####[facility] [address] [place], [address] Chloride [Moles/Vol] 108 mmol/L High 98-107 [facility] Comment on above: Performed By: #### L 500.4050, L100.0100 ####[facility] [address] [place], [address] CO2 [Moles/Vol] 25.0 mmol/L Normal 21.0-32.0 [facility] Comment on above: Performed By: #### L 500.4050, L100.0100 ####[facility] [address] [place], [address] Creatinine [Mass/Vol] 0.95 mg/dL Normal 0.70-1.30 [facility] Comment on above: Result Comment: The validity of the calculated GFR GFRAA in patients over70 years has not been determined. Clinical correlation isessential. Performed By: #### L 500.4050, L100.0100 ####[facility] [address] [place], [address] ECRCL 119.30 ml/min Normal [facility] Comment on above: Performed By: #### L 500.4050, L100.0100 ####[facility] [address] [place], [address] EST GFR - AA 108 mL/min Normal >60 [facility] Comment on above: Result Comment: Afri can Swiss GFR Calc Performed By: #### L 500.4050, L100.0100 ####[facility] [address] [place], [address] GAP 6 Normal 5-15 [facility] Comment on above: Performed By: #### L 500.4050, L100.0100 ####[facility] [address] [place], [address] GFR/1.73 sq M.predicted among non-blacks MDRD (S/P/Bld) [Vol rate/Area] 89 mL/min/{1.73_m2} Normal >60 [place] Comment on above: Result Comment: Non- GFR Calc Performed By: #### L 500.4050, L100.0100 ####[facility] [address] [place], [address] Globulin (S) [Mass/Vol] 4.1 g/dL Normal 2.2-4.2 [facility] Comment on above: Performed By: #### L 500.4050, L100.0100 ####[facility] [address] [place], [address] Glucose [Mass/Vol] 112 mg/dL High 74-106 [facility] Comment on above: Result Comment: Fast ing Glucose result from 100 to 125 mg/dLsuggests IMPAIRED HOMEOSTASIS per A.D.A. criteria. Performed By: #### L 500.4050, L100.0100 ####[facility] [address] [place], [address] Potassium [Moles/Vol] 4.4 mmol/L Normal 3.5-5.1 [facility] Comment on above: Result Comment: Mode rate Hemolysis, Result may be falsely increased. Performed By: #### L 500.4050, L100.0100 ####[facility] [address] [place], [address] Sodium [Moles/Vol] 139 mmol/L Normal 136-145 [facility] Comment on above: Performed By: #### L 500.4050, L100.0100 ####[facility] [address] [place], [address] T PROT 7.1 g/dL Normal 6.4-8.2 [facility] Comment on above: Performed By: #### L 500.4050, L100.0100 ####[facility] [address] [place], [address] Urea nitrogen [Mass/Vol] 22 mg/dL High 7-18 [facility] Comment on above: Performed By: #### L 500.4050, L100.0100 ####[facility] [address] [place], [address] Oncology Visit Reporton 10-17 Oncology Visit Report Normal [facility] Oncology Visit Reporton Oncology Visit Report Normal [facility] Brain W/WO Contraston 2024 Brain W/WO Contrast Normal [facility] Radiation Oncology Visiton 1 Radiation Oncology Visit Normal [facility] Oncology Visit Reporton 09-17 Oncology Visit Report Normal [facility] Progress Noteson 10-01-2024 [employer] Authentication Interface Message Text ...Patient was identified by name and date of . Celeste [place] MA Normal [employer] Authentication Interface Message Text [facility] Neurological Surgery post-op note: Anurag Joseph 48 year old male Postop visit s/p R frontal stereotactic biopsy on 09/21/24, butterfly glioma, final path GBM HPI Recovering without issue Stopped dexamethasone yesterday, 2 mg bid, ran out, and noticed more difficulty with walking Headache settled, no recurrence Fatigue No new c/o vision changes, seizures, or sensory changes Reviewed pathology results, implications for prognosis and treatment options (radiation and chemotherapy, surgery for resection presents more risk than benefit) Final Diagnosis A and B. 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 Hospital Course 09/21/24 - 09/22/24: Patient is a 48 year old year old male with PMH newly identified 5.1 cm heterogeneously enhancing corpus callosal mass now s/p R frontal stereotactic biopsy with Dr. Dupree on 09/21/24. Procedure was uncomplicated. Pt was admitted to the SICU post-op for neuromonitoring. Post-op head CT with expected post-op findings. Patient recovered without complicated and was cleared for discharge home on 09/22/24. At time of discharge pt was voiding and ambulating independently and pain was controlled on oral pain medications. Review of Systems Constitutional: Positive for malaise/fatigue. HENT: Negative. Eyes: Negative. Respiratory: Negative. Cardiovascular: Negative. Gastrointestinal: Negative. Genitourinary: Negative. Musculoskeletal: Negative. Skin: Negative. Neurological: Positive for weakness. Endo/Heme/Allergies: Negative. Psychiatric/Behavioral : Negative. Vitals: 10/01/24 1113 BP: 116/78 Pulse: 69 Resp: 18 SpO2: 98% Physical Exam HENT: Head: Normocephalic. Mouth/Throat: Mouth: Mucous membranes are moist. Pharynx: Oropharynx is clear. Eyes: Extraocular Movements: Extraocular movements intact. Conjunctiva/sclera: Conjunctivae normal. Pupils: Pupils are equal, round, and reactive to light. Pulmonary: Effort: Pulmonary effort is normal. Musculoskeletal: General: Normal range of motion. Cervical back: Normal range of motion and neck supple. Skin: General: Skin is warm and dry. Neurological: General: No focal deficit present. Mental Status: He is alert and oriented to person, place, and time. Cranial Nerves: No cranial nerve deficit. Sensory: No sensory deficit. Motor: No weakness. R frontal cranial surgical incision well healed MRI brain 09/14/2024: FINDINGS: TUMOR: Location: There is a 5.1 x 5.0 x 3.8 cm (AP x TV x CC) heterogenous enhancing mass in the frontal lobes crossing midline at the corpus callosum and demonstrates mild internal vascularity, blood product and prominent surrounding vasogenic edema. FLAIR/T2 hyperintensity extends in the bilateral frontal lobes with a small component which courses along the left internal capsule, basal ganglia and thalamus down to the left cerebral peduncle. There are additional enhancing foci which are contiguous with the T2/FLAIR signal measure up to 1.0 cm in bilateral frontal lobes (Series 12, Image 73) and a third enhancing lesion is seen in the left lateral cerebral peduncle (Series 12, Image 108). Enhancement: There is abnormal heterogenous enhancement on postcontrast imaging. Diffusion: Areas of abnormally decreased diffusion are seen, suggesting areas of hypercellular tumor. Other: A few areas of calcification and blood product. Mass effect on the anterior lateral ventricles, right greater than left. No herniation. ADDITIONAL FINDINGS: Remaining Brain Parenchyma: No acute infarct. Ventricles and Sulci: Normal. Skull Base: Craniocervical junction is normal. Expected marrow signal. Vasculature: Major intracranial vessels have normal flow voids suggesting patency. Extracranial structures: The paranasal sinuses and mastoid air cells are clear. The orbits and extracranial soft tissues demonstrate no significant abnormality. 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 Less likely differential diagnoses would include metastasis or lymphoma. Anurag was seen today for follow up. Diagnoses and all orders for this visit: GBM (glioblastoma multiforme) (HCC) Other orders - dexAMETHasone (DECADRON) 2 MG tablet; Take 1 Tablet by mouth 2 times daily. A/P: 48-year-old male patient presenting with a history of headache, fatigue, behavioral and personality changes over a few months. 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 He underwent stereotactic right frontal approach brain biopsy on (more content not included)... Normal [employer] BASIC METABOLIC PANELon 12-0 Anion gap [Moles/Vol] 14 mmol/L Normal 10-20 [facility] Comment on above: Performed By: #### C H8, MG #### [facility] [address] [place] [address], Calcium [Mass/Vol] 8.4 mg/dL Low 8.6-10.3 [facility] Comment on above: Performed By: #### C H8, MG #### [facility] [address] [place] [address], Chloride [Moles/Vol] 105 mmol/L Normal 98-107 [facility] Comment on above: Performed By: #### C H8, MG #### [facility] [address] [place] [address], CO2 [Moles/Vol] 25 mmol/L Normal 21-31 [facility] Comment on above: Performed By: #### C H8, MG #### [facility] [address] [place] [address], Creatinine [Mass/Vol] 0.96 mg/dL Normal 0.70-1.30 [facility] Comment on above: Performed By: #### C H8, MG #### [facility] [address] [place] [address], ESTIMATED GFR (CKD-EPI) 97 mL/min/1.73sqm Normal >=60 [facility] Comment on above: Result Comment: 2020 CKD EPI Equation using Creatinine without Race Comment: Estimated glomerular filtration rate (eGFR) is calculated without a race coefficient. Values should be interpreted in the context of the patient's full clinical presentation. Reference: 1. Harman C, Linda M, Desiree ANDERSON, et al.. A Unifying Approach for GFR Estimation: Recommendations of the NKF-ASN Task Force on Reassessing the Inclusion of Race in Diagnosing Kidney Disease. Swiss Journal of Kidney Diseases 2021;79(2):268-88.e1. 2. N Engl J Med 2020 Vol. 385 Issue 19 Pages 7810-0482 Performed By: #### C H8, MG #### [facility] [address] [place] [address], Glucose [Mass/Vol] 123 mg/dL High 74-109 [facility] Comment on above: Performed By: #### C H8, MG #### [facility] [address] [place] [address], Potassium [Moles/Vol] 4.7 mmol/L Normal 3.5-5.0 [facility] Comment on above: Performed By: #### C H8, MG #### [facility] [address] [place] [address], Sodium [Moles/Vol] 139 mmol/L Normal 136-145 [facility] Comment on above: Performed By: #### C H8, MG #### [facility] [address] [place] [address], Urea nitrogen [Mass/Vol] 27 mg/dL High 7-25 [facility] Comment on above: Performed By: #### C H8, MG #### [facility] [address] [place] [address], Basic metabolic 2000 panelon 09-22-2024 Anion gap [Moles/Vol] 14 mmol/L 10 - 20 Met [facility] Calcium [Mass/Vol] 8.4 mg/dL Low 8.6 - 10. 3 mg/dL [facility] Chloride [Moles/Vol] 105 mmol/L 98 - 10 7 mmol/L [facility] CO2 [Moles/Vol] 25 mmol/L 21 - 31 mmol/L [facility] Creatinine [Mass/Vol] 0.96 mg/dL 0.70 - 1.30 mg/dL [facility] GFR/1.73 sq M.predicted CKD-EPI (S/P/Bld) [Vol rate/Area] 97 - PINF [facility] Comment on above: 2020 CKD EPI Equatio n using Creatinine without Race Comment: Estimated glomerular filtration rate (eGFR) is calculated without a race coefficient. Values should be interpreted in the context of the patient's full clinical presentation. Reference: 1. Harman Lundy, Linda M, Desiree ANDERSON, et al.. A Unifying Approach for GFR Estimation: Recommendations of the NKF-ASN Task Force on Reassessing the Inclusion of Race in Diagnosing Kidney Disease. [place] Journal of Kidney Diseases 202;79(2):268-88.e1. 2. N Engl J Med 2020 Vol. 385 Issue 19 Pages 1467-2326 Glucose [Mass/Vol] 123 mg/dL High 74 - 109 mg/[facility] Interpretation and review of laboratory results Abnormal [facility] Potassium [Moles/Vol] 4.7 mmol/L 3.5 - 5.0 mmol/L [facility] Sodium [Moles/Vol] 139 mmol/L 136 - 145 mmol/L [facility] Urea nitrogen [Mass/Vol] 27 mg/dL High 7 - 25 mg/dL [facility] CBC panel Auto (Bld)on 09-22 Erythrocyte distribution width (RBC) [Ratio] 14.1 % 11.5 - 14.5 % [facility] Hematocrit (Bld) [Volume fraction] 42 % 41.0 - 53.0 % [facility] Hemoglobin (Bld) [Mass/Vol] 14 g/dL 13.9 - 16.3 g/dL [facility] Interpretation and review of laboratory results Abnormal [facility] MCH (RBC) [Entitic mass] 32.9 pg 26. 0 - 34.0 pg [facility] MCHC (RBC) [Mass/Vol] 33.3 g/dL 32.0 - 35.9 g/dL [facility] MCV (RBC) [Entitic vol] 99 fL 80 - 100 fL [facility] Platelet mean volume (Bld) [Entitic vol] 8.4 fL 7.5 - 11.2 fL [facility] Platelets (Bld) [#/Vol] 218 10*3/uL 150 - 400 K/uL [facility] RBC (Bld) [#/Vol] 4.25 10*6/uL Low [facility] WBC (Bld) [#/Vol] 16.2 10*3/uL High 4.5 - 11.5 K/uL [facility] COMPLETE BLOOD COUNTon 09-22 Erythrocyte distribution width (RBC) [Ratio] 14.1 % Normal 11.5-14.[address] [facility] Comment on above: Performed By: #### C BC #### [facility] [address] [place] [address], [id number] Hematocrit (Bld) [Volume fraction] 42.0 % Normal 41.0-53.[address] [facility] Comment on above: Performed By: #### C BC #### [facility] [address] [place], [place], Hemoglobin (Bld) [Mass/Vol] 14.0 g/dL Normal 13.9-16.3 [facility] Comment on above: Performed By: #### C BC #### [facility] [address] [place], [place], [facility] (RBC) [Entitic mass] 32.9 pg Normal 26.0-34.[address] [facility] Comment on above: Performed By: #### C BC #### [facility] PATH[facility]Y LABORATORY [address] [place], [place], MCHC (RBC) [Mass/Vol] 33.3 g/dL Normal 32.0-35.[address] [facility] Comment on above: Performed By: #### C BC #### [facility] [address] [place], [place], MCV (RBC) [Entitic vol] 99 fL Normal 80-100 T [facility] Comment on above: Performed By: #### C BC #### [facility] [address] [place], [place], Platelet mean volume (Bld) [Entitic vol] 8.4 fL Normal 7.5-11.2 [facility] Comment on above: Performed By: #### C BC #### [facility] [address] [place], [place], Platelets (Bld) [#/Vol] 218 10*3/uL Normal 150-[address] [facility] Comment on above: Performed By: #### C BC #### S PATHOLOGY LABORATORY [address] [place], [place], RBC (Bld) [#/Vol] 4.25 10*6/uL Low 4.50-5.90 [facility] Comment on above: Performed By: #### C BC #### [facility] [address] [place], [place], WBC (Bld) [#/Vol] 16.2 10*3/uL High 4.5-11.[address] [facility] Comment on above: Performed By: #### C BC #### [facility] [address] [place], [place], GLUCOSE, FINGERSTICK-IN OFFI CEon 09-22-2024 Glucose [Mass/Vol] 111 mg/dL High 74 - 109 mg/dL [facility] Interpretation and review of laboratory results Abnormal [facility] Glucose [Mass/Vol] 111 mg/dL High 74-[address] [facility] Comment on above: Performed By: #### C H8, MG #### [facility] [address] [place], [place], MAGNESIUMon 09-22-2024 Interpretation and review of laboratory results Normal [facility] Magnesium [Mass/Vol] 2.1 mg/dL 1.9 - 2 .7 mg/dL [facility] Magnesium [Mass/Vol] 2.1 mg/dL Normal 1.9-2.[address] [facility] Comment on above: Performed By: #### C H8, MG #### [facility] [address] [place] [address], No Panel Informationon 09-22 Interpretation and review of laboratory results Normal [facility] PARTIAL THROMBOPLASTIN TIMEo n 09-22-2024 aPTT Coag (Bld) [Time] 25 s [facility] aPTT Coag (Bld) [Time] 25 s Normal 25-[address] [facility] Comment on above: Performed By: #### A PTT, PT #### [facility] [address] [place] [address], PROTHROMBIN TIME AND INRon 1 11-23-2023 INR Coag (PPP) [Relative time] 1.06 {INR} 0.90 - 1.[address] [facility] PT Coag (PPP) [Time] 11.9 s [facility] INR Coag (PPP) [Relative time] 1.06 {INR} Normal 0.90-1.[address] [facility] Comment on above: Performed By: #### A PTT, PT #### [facility] [address] [place] [address], PT Coag (PPP) [Time] 11.9 s Normal 9.7-12.9 [facility] Comment on above: Performed By: #### A PTT, PT #### [facility] [address] [place], [address] Progress Noteson 09-22-2024 [employer] Authentication Interface Message Text Attestation signed by Prasanna Asencio MD at 09/22/2024 6:55 PM I have personally seen and examined the patient with the team and nursing staff at the patient's bedside. I have reviewed recent data and reports. I have also reviewed lab values, imaging, and current medications profile. I discussed my findings with the team. I reviewed the full note by the resident with the detailed findings, and I agree with the assessment, overall impression, and plan of care. We have also updated the patient or any available family as well as other services with our care plan. Total Critical Care Time 35 minutes Prasanna Asencio MD [facility] Department of Surgery SURGICAL ICU PROGRESS NOTE Anurag Joseph [id number] Admission Date: 09/21/2024 Background: Anurag Joseph is a 48 year old male with no significant PMH who presented to [place] ED for headache. CT showed intracranial tumor. He was transferred to for NSGY consult. MRI showed multifocal glioblastoma. No evidence of primary or metastatic disease in chest/abdomen or pelvis. He was started on dexamethasone. He was transferred to the SICU on POD0 for q1 neuro checks s/p R frontal stereotactic biopsy. INTERVAL HISTORY/EVENTS Hospital Course: 09/21/2024- biopsy performed, transferred to SICU 24 Hour Events: - No acute events overnight - VSS on room air 24 Hour Input/Output: In: 2259.5 (23 mL/kg) [P.O.:120; I.V.:2139.5 (0.9 mL/kg/hr)] Out: 1270 (12.9 mL/kg) [Urine:1270 (0.5 mL/kg/hr)] Net: 989.5 Weight: 98.4 kg IV 248 Ucath 2079 PHYSICAL EXAM BP 120/72 Pulse 52 Temp 97.9 ???F (36.6 ???C) Resp 13 Ht 6' 1 (1.854 m) Wt 217 lb (98.4 kg) SpO2 97% BMI 28.63 kg/m??? General: Lying in bed, no apparent distress, AO x3 HEENT/Neuro: EOMI, PERRL, face symmetric, strong, symmetric shoulder shrug. Small incision with dermabond at edge of R frontal hair line Cardiac: Regular rate and rhythm Pulmonary: Normal respiratory effort on RA Abdomen: Non-distended. Extremities: No peripheral edema LABORATORY RESULTS 16.2 14.0 / 218 / 42.0 CBC: 09/22/2024: 2:24 AM 139 105 27 / 123 4.7 25 0.96 BMP: 09/22/2024: 2:24 AM LFT's (last 3 years, up to 8 values) No lab values to display. Fingerstick Glucose (last 72 hours) Glucose 09/21/24 2149 218 Comment: Notified KLARISSA ACE MD 09/21/24 1628 122 09/21/24 1051 96 No results found for: HBA1C No results found for: TSH Blood Culture No lab values to display. Urine Culture (last 1 year) No lab values to display. Respiratory Culture, Misc No lab values to display. 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 No acute intracranial abnormality. ASSESSMENT/PLAN Diagnosis s/p R frontal stereotactic biopsy: - high grade glioma PMH: None Plan: Neurological: # High grade glioma # s/p R frontal stereotactic biopsy - Acetaminophen 650 mg PO q4h PRN mild pain (1-3) - Oxycodone 5 mg PO q6h PRN moderate pain (4-6) - Oxycodone 10 mg PO q6h PRN severe pain (7-10) - Decadron 2mg BID Cardiovascular: - Vital signs per floor protocol Respiratory: - Maintain SpO2 >92% GI/Diet: - Diet: Regular - Colace 100 mg PO BID - Scopolamine patch 1.5 mg q72h - Protonix 40mg daily before breakfast Renal/Electrolytes: - mIVF: NS 30 mL/hr - BMP/Mg daily - Replace electrolytes as indicated - Maintain Mg >2, K >4 - Measure strict I AND O Infectious Disease: - Start ancef 2g IV q8h for 2 doses (last dose 09/21 2200) - Monitor temperature and WBC for signs of infection Hematology: - CBC daily - Daily PT, PTT, and INR - No current indication for transfusion - Maintain hemoglobin >7 Endocrine: - POCT qAC/HS - Monitor blood glucose levels, adjust regimen above for BGL control between 140-180 Musculoskeletal: - PT/OT - Progressive mobility guidelines Tubes, Lines, and Drains: - PIV x2 09/21 - Right radial arterial line 09/21 - Interiano catheter 09/21 - remove today Prophylaxis: - SCDs Disposition: - Transfer to floor Follow Up: - PCP: No primary care provider on file. - NSGY Code Status: - Prior I have reviewed the above listed plan with the surgery critical care attending and it is preliminary until finalized by them. Kindly await their final recommendations. Alex Yarbrough MD General Surgery Normal [facility] [employer] [facility] Anesthesia Postprocedure Kisha ruiz 09-21-2024 [employer] Authentication Interface Message Text Anesthesia Postoperative Assessment: Vital Signs (most recent): BP 131/71 Pulse 61 Temp 36.6 ???C (97.9 ???F) (Oral) Resp 18 Ht 6' 1 (1.854 m) Wt 218 lb (98.9 kg) SpO2 97% BMI 28.76 kg/m??? Anesthesia Post Evaluation Level of consciousness: awake Post-procedure exam normal. Body temperature, hydration status, PONV and pain evaluated and addressed. Pain management: adequate Hydration status: normal PONV:No nausea/vomiting reported Cardiopulmonary status stable Respiratory status: acceptable Cardiovascular status: acceptable ANESTHESIA NOTABLE EVENTS: No notable events documented. Normal The [facility] Anesthesia Transfer Of [facility] n 09-21-2024 [employer] Authentication Interface Message Text Patient taken to ICU, spontaneous breathing with supplemental oxygen. Standard transport monitoring, emergency medications and equipment available. Completed SBAR handoff to the receiving nurse. Patient was awake, comfortable, and stable on arrival. ICU Transfer Note Basic Operating Room Facts: Surgeon(s): Kostas Dupree MD Scrub: Nadeen Bryan RN Catering Convention Services Manager Nurse: Bryson Roman RN Adjunct Instructor Of Women'S Studies: Muriel Sands MD Anesthesiologist: Carmelo Ware MD Diesel Locomotive Engineer: Geoff Espinoza MD RIGHT FRONTAL STEREOTACTIC BRAIN BIOPSY (Right: Head) Intraoperative Events: No acute event ASA: 3 EBL: Not documented Urine 300 mL Lactated Ringers and NaCl 0.9%: Fluid Totals (Filter: LR and NaCl 0.9% Medications Shown) Medication Calculated Total Lactated Ringers 900 mL / 1 bag Lactated Ringers 850 mL / 1 bag Cell Saver: Not documented Blood Administration View: 09/18/24 1100 to 09/21/24 1100 (72 Hours) Sort by: Time None Other meds given: n/a Current Vasoactive Medications: Vasoactive Medications: None Breathing: Vent Settings: Vent Mode: Man./Spont. Minute Volume: 0.6 L PIP: 8 cmH2O FiO2: 97 % PEEP: 5 cmH2O Vent Rt: (!) 1 TV: 368 mL Lines, Drains, Airways Peripheral IV Access: 09/21/24706 18 gauge Left Forearm (Active) Site Assessment WNL;Dressing intact 09/21/24706 Infusion Status Port #1 Capped;Patent;Positive blood return 09/21/24706 Peripheral IV Access: 09/21/24 0745 16 gauge Left Hand (Active) Arterial Line: 09/21/24 Right (Active) Airway Insertion Details [REMOVED] Advanced Airway: ETT, Oral;Cuffed (Removed) 09/21/24 0742 Pre-Oxygenation/ Induction: Mask Rapid Sequence Induction?: Mask Ventilation: Easy Blade Type: Hyperangulated Blade Size: 4 Visualization: Grade 1 Airway Type: ETT, Oral;Cuffed Airway Size: Post Insertion Assessment: Confirmation: Equal bilateral breath sounds, CO2 confirmed # Attempts >1: Special Equipment: Glidescope Present on Admission?: Previously Removed / Not Present: Removal Reason: Not Removed at Discharge: Removed 09/21/24 1034 All non-working IVs have been removed: N/A Hand off Completed: Yes 1. The patient was identified. 2. Pertinent medical history was relayed. 3. A brief discussion was had about any pertinent surgical/ procedural issues. 4. Intraoperative/ anesthetic management issue and concerns were discussed. 5. Plans for the early post-operative period relayed. 6. An opportunity for questions and acknowledgment of understanding of the report was received. Geoff Espinoza MD Normal [facility] [employer] [facility] Blood Attestationon 09-21-20 [employer] Authentication Interface Message Text Blood Attestation: ATTESTATION OF INFORMED CONSENT FOR BLOOD: The transfusion of blood and/or blood components were discussed with the patient and/or legal labor union business representative. The risks, benefits and alternatives were reviewed. Questions regarding blood transfusions were answered. The patient /or the patient's legal labor union business representative agree with the plan for transfusion of blood and/or blood components. Normal [facility] [employer] [facility] Brief Operative Noteon 09-21 [employer] Authentication Interface Message Text Brief Operative Note MAIN OR 03 Anurag [facility] [place] 48 [place] Surgical Contact Serial Number: [id number] Preoperative Diagnosis: Pre-op Diagnosis * Frontal mass of brain [G93.89] Postoperative Diagnosis: * Frontal mass of brain [G93.89] Procedures: Right frontal approach stereotactic brain biopsy with [employer] system Surgeon(s): Surgeon(s): Kostas Dupree MD Staff: Scrub: Nadeen Bryan RN Catering Convention Services Manager Nurse: Bryson Roman RN Adjunct Instructor Of Women'S Studies: Muriel Sands MD Anesthesia: General Anesthesiologist: Carmelo Ware MD Diesel Locomotive Engineer: Geoff Espinoza MD Specimen(s): ID Type Source Tests Collected by Time Destination 1 : RIGHT FRONTAL BRAIN BIOPSY Tissue Brain SPECIMEN FOR SURGICAL PATH Kostas Dupree MD 09/21/2024926 2 : RIGHT FRONTAL BRAIN BIOPSY Tissue Brain SPECIMEN FOR SURGICAL PATH Kostas Dupree MD 09/21/2024927 Estimated Blood Loss: Minimal < 5 cc Lines/Drains: Peripheral IV Access: 09/21/24706 18 gauge Left Forearm (Active) Site Assessment WNL;Dressing intact 09/21/24706 Infusion Status Port #1 Capped;Patent;Positive blood return 09/21/24 0707 Peripheral IV Access: 09/21/24 0745 16 gauge Left Hand (Active) Temporarily Retained Foreign Object: No Findings: Neurosurgery - procedure as booked Frozen pathology - high grade glioma Complications: None Status at end of surgery: Stable Activity: progressive ambulation Surgical wound class: Yes, wound was clean. Patient Class: Surgery Admit. Is this a patient scheduled as an outpatient that needs to be admitted as an inpatient? No Dr. Dupree was present in the OR for the critical portion of the procedure and procedure sign-out. Signed by Kostas Dupree MD 09/21/2024 10:13 AM Normal [facility] [employer] [facility] CT Head WO contrastOrdered B y: Brandon Lopez on 09-21-2024 CT DLP 740.14 (mGy.cm) [facility] Work Phone: CT Series Topogram,HEAD WO [facility] Work Phone: CTDI VOL 0.17 (mGy),38.18 (mGy) [facility] Work Phone: PHANTOM TYPE IEC Head Dosimetry Phantom,IEC Head Dosimetry Phantom [facility] Work Phone: [facility] Work Phone: CT Head WO contraston 2023 Brandon Lopez MD - 09/21/2024 EXAMINATION: CT HEAD W/O CONTRAST 09/21/2024 04:47 PM CLINICAL HISTORY: Postoperative evaluation ASSOCIATED DIAGNOSIS: Postoperative evaluation ORDERING PROVIDER: MURIEL SANDS TECHNOLOGISTS NOTE: COMPARISON: Brain MRI from 09/14/2024 TECHNIQUE: Thin axial imaging of the head was performed without intravenous contrast. FINDINGS: Expected immediate postoperative changes related to stereotactic biopsy of infiltrative mass centered at the genu of the corpus callosum with trace postprocedural pneumocephalus in the right forceps minor and subcortical white matter of the ventral right cingulate gyrus. The mass extends across midline and involves each forceps minor and ventral cingulate gyri. Dystrophic mineralization along the left lateral margin of the mass in the ventral best radiata. Subtle confluent hypodensity in the dorsal left thalamus corresponds to an additional enhancing mass on prior brain MRI. Stable localized bifrontal gyral swelling and sulcal effacement with minimal compression of the frontal horns. No acute intracranial hemorrhage, CT evidence of acute territorial infarction, or hydrocephalus. Small right frontal claudine hole for stereotactic biopsy. Remaining calvarium and skull base are within normal limits. Paranasal sinuses and tympanomastoid cavities are unopacified. 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 No acute intracranial abnormality. MACRO: None [facility] Study observation (narrative) [facility] GLUCOSE, FINGERSTICK-IN OFFI CEon 09-21-2024 Glucose [Mass/Vol] 218 mg/dL High 74 - 109 mg/dL [facility] Comment on above: Notified KLARISSA ACE MD Interpretation and review of laboratory results Abnormal [facility] Glucose [Mass/Vol] 218 mg/dL High 74-109 [facility] Comment on above: Result Comment: Yeny benjamin RN, APN, MD Performed By: #### C H8, MG #### [facility] [address] [place] [address], Glucose [Mass/Vol] 122 mg/dL High 74 - 109 mg/dL [facility] Interpretation and review of laboratory results Abnormal [facility] Glucose [Mass/Vol] 122 mg/dL High 74-109 [facility] Comment on above: Performed By: #### C H8, MG #### [facility] [address] [place] [address], Glucose [Mass/Vol] 96 mg/dL 74 - 109 mg/dL [facility] Interpretation and review of laboratory results Normal [facility] Glucose [Mass/Vol] 96 mg/dL Normal 74-109 [facility] Comment on above: Performed By: #### C H8, MG #### [facility] [address] [place] [address], Laboratory - Blood bankon ABO and Rh group Nom (Bld) Blood group A Rh(D) negative [facility] MGMT METHYLATION DETECTORon 09-21-2024 ADDITIONAL INFORMATION Normal Th e [facility] Comment on above: Order Comment: [facility] Address Site ID: EO Name: [facility] Address: [address] [place] [phone] Director: Arnol Manzanares M.D. Ph.D. Result Comment: NATALIE CAST 1. N Engl J Med 2005;352(10):997-1003 (PMID: [id number]) 2. Denisha Rev Neurol 2010;6:39-51 (PMID: [id number]) 3. Lancet Oncol. 2012; 13:707-715 (PMID: [id number]) 4. Lancet Oncol. 2012; 13: 916-926 (PMID: [id number]) 5. Denisha Rev Neurol 2014;10:372-385 (PMID: [id number]) Performed By: #### M GMT #### [facility] Pathology [address] [facility] [facility] [address] [place], [place] [address] INTERPRETATION Normal [facility] Comment on above: Order Comment: [facility] Address Site ID: EO Name: [facility] Address: [address] [place] [phone] Director: Arnol Manzanares M.D. Ph.D. Result Comment: Curr ent data suggest that the absence of MGMT promoter methylation predicts lack of response to alkylating chemotherapy (i.e. temozolomide) and is an unfavorable prognostic factor for patients with glioblastoma. Additional studies are needed to assess the clinical significance of the absence of MGMT promoter methylation in other tumor types. ADDITIONAL INFORMATION Microscopic examination was performed by a pathologist only to identify areas of tumor for enrichment by macrodissection. A methylation-specific PCR-based assay is used to test tumor DNA for the presence of MGMT gene promoter methylation. Test results should be interpreted in the context of clinical findings, family history, and other laboratory data. If results obtained do not match other clinical or laboratory findings, please contact the laboratory for possible interpretation. Misinterpretation of results may occur if the information provided is inaccurate or incomplete. Negative results do not rule out the presence methylation that may be present but below the limit of detection for this assay (approximately 15%). Though rare, mutations and variants within the regions of the MGMT promoter covered by the primers may result in failure to amplify the region or detect the presence of methylation. Negative results do not rule out the presence methylation that may be present in other CpG sites. This test was developed and its performance characteristics determined by [facility] in a manner consistent with CLIA requirements. This test has not been cleared or approved by the U.S. Food and Drug Administration. Performed By: #### M GMT #### [facility] [address] [facility] [place], [place] RELEASED BY Mily Matamoros M.D., Ph.D. Normal [facility] Comment on above: Order Comment: [facility] Site ID: EO Name: [facility] Address: [address] [place] [address] Director: Arnol Manzanares M.D. Ph.D. Performed By: #### M GMT #### [facility] [address] [facility] [place], [place] RESULT Normal The [facility] Comment on above: Order Comment: [facility] Site ID: EO Name: [facility] Address: [address] [place] [address] Director: Arnol Manzanares M.D. Ph.D. Result Comment: Prov ided diagnosis: brain intraoperative; favor glioma Tumor tissue: Negative for MGMT promoter methylation Performed By: #### M GMT #### [facility] [address] [facility] [place], [place] RESULT SUMMARY MGMT PROMOTER METHYLATION ABSENT Normal The [facility] Comment on above: Order Comment: [facility] Site ID: EO Name: [facility] Address: [address] [place] [address] Director: Arnol Manzanares M.D. Ph.D. Performed By: #### M GMT #### [facility] [address] [facility] [place], [place] SPECIMEN Tissue, Tumor Normal [facility] Comment on above: Order Comment: [facility] Site ID: EO Name: [facility] Address: [address] [place] [address] Director: Arnol Manzanares M.D. Ph.D. Performed By: #### M GMT #### [facility] [address] [facility] [place], [place] TISSUE ID [id number] Normal [facility] [employer] [facility] Comment on above: Order Comment: [facility] Address Site ID: EO Name: [facility] Address: [address] [place] [phone] Director: Arnol Manzanares M.D. Ph.D. Performed By: #### M T #### [facility] Pathology [address] [facility] [address] [place], [place] [address] OP Noteon 09-21-2024 [employer] Authentication Interface Message Text Operative Note MAIN OR 03 [facility] 48 year old male Surgical Contact Serial Number: [id number] Preoperative Diagnosis: Pre-op Diagnosis * Frontal mass of brain [G93.89] - with brain compression Postoperative Diagnosis: * Frontal mass of brain [G93.89] - with brain compression * High grade glioma/GBM Procedures: Right frontal approach stereotactic brain biopsy with [employer] system Surgeon(s): Surgeon(s): Kostas Dupree MD Staff: Scrub: Nadeen Bryan RN Catering Convention Services Manager Nurse: Bryson Roman RN Adjunct Instructor Of Women'S Studies: Muriel Sands MD Anesthesia: General Anesthesiologist: Carmelo Ware MD Diesel Locomotive Engineer: Geoff Espinoza MD Specimen(s): ID Type Source Tests Collected by Time Destination 1 : RIGHT FRONTAL BRAIN BIOPSY Tissue Brain SPECIMEN FOR SURGICAL PATH Kostas Dupree MD 09/21/2024926 2 : RIGHT FRONTAL BRAIN BIOPSY Tissue Brain SPECIMEN FOR SURGICAL PATH Kostas Dupree MD 09/21/2024927 Estimated Blood Loss: Minimal < 5 cc Lines/Drains: Peripheral IV Access: 09/21/24706 18 gauge Left Forearm (Active) Site Assessment WNL;Dressing intact 09/21/24706 Infusion Status Port #1 Capped;Patent;Positive blood return 09/21/24706 Peripheral IV Access: 09/21/24744 16 gauge Left Hand (Active) Temporarily Retained Foreign Object: No Clinical history: 48-year-old male patient presenting with a 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 MRI brain suspicious of high-grade glioma. He was brought to the OR for elective stereotactic right frontal brain biopsy. Informed consent was obtained after review of the risks, benefits and alternatives of surgical intervention. Description of operative procedure and findings: The patient underwent induction of general anesthesia and endotracheal intubation. He was positioned supine on the OR table. The appropriate vascular access lines and a Interiano catheter were placed. Pressure points were padded. His head was pinned in the Gonzalez and secured to the OR table for positioning for a right frontal approach stereotactic brain biopsy. The [employer] navigation system was registered and the location of the right frontal entry point was confirmed. A small amount of hair was shaved with clippers and sterile preparation and draping followed. A surgical time-out was performed confirming the patient identity, planned procedure, laterality, allergies, fire risk, wound class, perioperative antibiotics and equipment. 1% lidocaine with epinephrine was infiltrated into the line of the skin incision. The skin was incised sharply with a scalpel. The periosteum was reflected off the underlying bone. The incision was small, 1 cm, to facilitate access of the drill. The [employer] VarioGuide system was brought into position and the joints were adjusted to the pre planned trajectory for the right frontal approach brain biopsy. A powered drill was used to drill a small craniostomy through the right frontal bone. The dura was punctured. The brain biopsy needle was then guided down to the depth of the predetermined target in the deep frontal mass. Tissue samples were taken for frozen and permanent pathology. The needle was then advanced a cm deeper and additional tissue samples were removed. An additional sample was taken at a depth of 1 cm short of the target. Frozen pathology revealed necrotic tissue suspicious of high-grade glioma. The brain biopsy needle was removed. We confirmed good hemostasis. The skin incision was closed with Monocryl 3-0 suture, running continuous. Bacitracin was applied to the closed surgical incision. Needle, sponge and instrument counts were correct at the end of the case. The patient was extubated and transferred to the surgical ICU in stable condition. Frozen pathology - high grade glioma Complications: None Status at end of surgery: Stable Activity: progressive ambulation Surgical wound class: Yes, wound was clean. Patient Class: Surgery Admit. Is this a patient scheduled as an outpatient that needs to be admitted as an inpatient? No Dr. Dupree was present in the OR for the critical portion of the procedure and procedure sign-out. Normal [employer] OR [facility] 09-21-2024 [employer] Authentication Interface Message Text SICU supercharge repair supervisor directed to call Dr Asencio. Dr Dupree talked to Dr Asencio who accepted pt to SICU. Bed co-ordinator contacted Normal [employer] Authentication Interface Message Text [facility] supervisor rakeshe bed for pt postop. No rooms on NCCU as of now. M[facility] Overton [facility] Normal [facility] [employer] [facility] Progress Noteson 09-21-2024 [employer] Authentication Interface Message Text Attestation signed by Prasanna Asencio MD at 09/21/2024 4:07 PM I have personally seen and examined the patient with the team and nursing staff at the patient's bedside. I have reviewed recent data and reports. I have also reviewed lab values, imaging, and current medications profile. I discussed my findings with the team. I reviewed the full note by the resident with the detailed findings, and I agree with the assessment, overall impression, and plan of care. We have also updated the patient or any available family as well as other services with our care plan. Total Critical Care Time 35 minutes Prasanna Asencio MD DEPARTMENT OF SURGERY DIVISION OF TRAUMA, BURN, AND CRITICAL CARE SURGICAL INTENSIVE CARE UNIT (SICU) History AND Physical Examination Patient: Anurag Joseph, 48 year old, male : 1975 Admit Date: 09/21/2024 Room: [place] [address] Today's Date: 09/21/2024, Length of stay: 1 day(s) Code Status: Prior Height: 6' Weight: 98.4 kg BMI: 28.63 Reason for consultation: Q1 neuro checks Referring physician: Patient seen and examined on 09/21/2024 History of Present Illness: Background: Anurag Joseph is a 48 year old male with no significant PMH who presented to [facility] ED for headache. CT showed intracranial tumor. He was transferred to for NSGY consult. MRI showed multifocal glioblastoma. No evidence of primary or metastatic disease in chest/abdomen or pelvis. He was started on dexamethasone. He was transferred to the SICU on POD0 for q1 neuro checks s/p R frontal stereotactic biopsy. Hospital Course: 09/21- biopsy performed, transferred to SICU Operative Course: Right frontal approach stereotactic brain biopsy with [employer] system EBL: not documented Fluid replacement: 1750 mL LR UOP: 300 mL On assessment, patient AO x3 and has no acute concerns. History: Past Medical History: No past medical history on file. Past Surgical History: No past surgical history on file. Medications: Current Facility-Administered Medications for the 09/21/24 encounter (Hospital Encounter) Medication Dose Route Frequency Provider Last Rate Last Admin ceFAZolin (ANCEF) 2,000 mg in dextrose 50 mL ivpb 2 g Intravenous One Time Dose Muriel Sands MD Outpatient Medications Marked as Taking for the 09/21/24 encounter (Hospital Encounter) Medication Sig Dispense Refill dexAMETHasone (DECADRON) 2 MG tablet Take 2 Tablets by mouth 2 times daily for 4 days, THEN 1 Tablet 2 times daily for 10 days. 36 Tablet 0 Allergies: No Known Allergies Family History: No family history on file. Social History: Social History Socioeconomic History Marital status: Tobacco Use Smoking status: Never Smokeless tobacco: Never Social Drivers of Health Food Insecurity: Unknown (09/14/2024) Hunger Vital Sign Worried About Running Out of Food in the Last Year: Never true has no history on file for drug use. Review of Systems: Unable to complete ROS given patient's current status ROS Vitals AND I/Os: 24 Hour Vitals Range: Vital sign ranges over the past 24 hours (retrieved 09/21/2024 at 1:35 PM): Tmax (24 hours): 98.4 ???F (36.9 ???C) Pulse Av.4 Min: 58 Max: 66 Systolic (24hrs), Av , Min:124 , Max:142 Diastolic (24hrs), Av, Min:71, Max:99 MAP (mmHg) Av.5 mmHg Min: 90 mmHg Max: 111 mmHg Resp Av.8 Min: 12 Max: 18 SpO2 Av.4 % Min: 97 % Max: 98 % Vital Signs: Patient Vitals for the past 24 hrs: BP Temp Temp src Pulse Resp SpO2 O2 Device 09/21/24 1300 124/84 98.2 ???F (36.8 ???C) -- 59 13 97 % -- 09/21/24 1200 126/80 98.2 ???F (36.8 ???C) -- 58 13 98 % -- 09/21/24 1111 -- 98.4 ???F (36.9 ???C) -- 63 12 97 % -- 09/21/24 1100 131/71 98 ???F (36.7 ???C) Oral 66 18 98 % Room air 09/21/24 0650 142/99 97.9 ???F (36.6 ???C) Oral 61 18 97 % Room air 24 Hour I AND Os: No intake/output data recorded. Physical Exam: General: Lying in bed, no apparent distress, AO x3 HEENT/Neuro: EOMI, PERRL, face symmetric, strong, symmetric shoulder shrug. Small incision with dermabond at edge of R frontal hair line Cardiac: Regular rate and rhythm Pulmonary: Normal respiratory effort on RA Abdomen: Non-distended. Extremities: No peripheral edema Pulses: palpable radial and DP bilaterally Lab Data: 13.3 15.8 / 237 / 46.1 CBC: 09/14/2024: 4:46 AM 138 105 25 / 182 4.2 24 1.12 BMP: 09/14/2024: 4:46 AM BMP: BMP (last 3 years, up to 8 values) 09/14/2024 4:46 AM Na 138 K 4.2 Cl 105 CO2 24 Gap 13 Glu 182 BUN 25 Cr 1.12 Ca 9.7 eGFR 81 CBC: CBC (last 3 years, up to 8 values) 09/14/2024 4:46 AM WBC 13.3 RBC 4.74 Hgb 15.8 Hct 46.1 MCV 97 RDW 13.9 Plt 237 PT/PTT/INR: PT/PTT/INR (last 3 years, up to 8 values) 08/19 (more content not included)... Normal [employer] Authentication Interface Message Text NEUROSURGERY POST-OPERATIVE NOTE Interval HPI: Post-op check. OBJECTIVE: Vitals: Vital sign ranges over the past 24 hours (retrieved 09/21/2024 at 7:27 AM): Tmax (24 hours): 97.9 ???F (36.6 ???C) Pulse Av Min: 61 Max: 61 Systolic (24hrs), Av , Min:142 , Max:142 Diastolic (24hrs), Av, Min:99, Max:99 MAP (mmHg) Av mmHg Min: 111 mmHg Max: 111 mmHg Resp Av Min: 18 Max: 18 SpO2 Av % Min: 97 % Max: 97 % No intake/output data recorded. Physical Exam: Waking up from anesthesia Eyes open to voice Following Commands No speech yet Ox3 EOMI, PERRL Face symmetric Strong, symmetric shoulder shrug RUE 4+/5 LUE 5/5 RLE 5/5 LLE 5/5 RUE Drift Sensation intact to light touch throughout Wound: c/d/i ASSESSMENT: Patient is a 48 year old year old male with PMH newly identified 5.1 cm heterogeneously enhancing corpus callosal mass now s/p 09/21 R frontal stereotactic biopsy PLAN: - Neuro as above, stable - Pain control - CTH at 1400 - decadron 2 mg BID - OR path - Perioperative abx - ADAT, OOB - SCDs only - To SICU for post-op recovery Muriel Sands MD Neurological Surgery PGY-3 Service Pager: [phone] 09/21/2024 - 7:27 AM Normal [employer] Student Noteon 09-21-2024 [employer] Authentication Interface Message Text DEPARTMENT OF SURGERY DIVISION OF TRAUMA, BURN, AND CRITICAL CARE SURGICAL INTENSIVE CARE UNIT (SICU) History AND Physical Examination Patient: Anurag Joseph, 48 year old, male : 1975 Admit Date: 09/21/2024 Room: [place] [address] Today's Date: 09/21/2024, Length of stay: 1 day(s) Code Status: Prior Height: 6 Weight: 98.4 kg BMI: 28.63 Reason for consultation: Q1 neuro checks Referring physician: Patient seen and examined on 09/21/2024 History of Present Illness: Background: Anurag Joseph is a 48 year old male with no significant PMH who presented to [facility] ED for headache. CT showed intracranial tumor. He was transferred to for NSGY consult. MRI showed multifocal glioblastoma. No evidence of primary or metastatic disease in chest/abdomen or pelvis. He was started on dexamethasone. He was transferred to the SICU on POD0 for q1 neuro checks s/p R frontal stereotactic biopsy. Hospital Course: 09/21- biopsy performed, transferred to SICU Operative Course: Right frontal approach stereotactic brain biopsy with [employer] system EBL: not documented Fluid replacement: 1750 mL LR UOP: 300 ml History: Past Medical History: No past medical history on file. Past Surgical History: No past surgical history on file. Medications: Current Facility-Administered Medications for the 09/21/24 encounter (Hospital Encounter) Medication Dose Route Frequency Provider Last Rate Last Admin ceFAZolin (ANCEF) 2,000 mg in dextrose 50 mL ivpb 2 g Intravenous One Time Dose Muriel Sands MD Outpatient Medications Marked as Taking for the 09/21/24 encounter (Hospital Encounter) Medication Sig Dispense Refill dexAMETHasone (DECADRON) 2 MG tablet Take 2 Tablets by mouth 2 times daily for 4 days, THEN 1 Tablet 2 times daily for 10 days. 36 Tablet 0 Allergies: No Known Allergies Family History: No family history on file. Social History: Social History Socioeconomic History Marital status: Tobacco Use Smoking status: Never Smokeless tobacco: Never Social Drivers of Health Food Insecurity: Unknown (09/14/2024) Hunger Vital Sign Worried About Running Out of Food in the Last Year: Never true has no history on file for drug use. Review of Systems: Unable to complete ROS given patient's current status ROS Vitals AND I/Os: 24 Hour Vitals Range: Vital sign ranges over the past 24 hours (retrieved 09/21/2024 at 12:33 PM): Tmax (24 hours): 98.4 ???F (36.9 ???C) Pulse Av Min: 58 Max: 66 Systolic (24hrs), Av , Min:126 , Max:142 Diastolic (24hrs), Av, Min:71, Max:99 MAP (mmHg) Av.3 mmHg Min: 90 mmHg Max: 111 mmHg Resp Av.3 Min: 12 Max: 18 SpO2 Av.5 % Min: 97 % Max: 98 % Vital Signs: Patient Vitals for the past 24 hrs: BP Temp Temp src Pulse Resp SpO2 O2 Device 09/21/24 1200 126/80 98.2 ???F (36.8 ???C) -- 58 13 98 % -- 09/21/24 1111 -- 98.4 ???F (36.9 ???C) -- 63 12 97 % -- 09/21/24 1100 131/71 98 ???F (36.7 ???C) Oral 66 18 98 % Room air 09/21/24 0650 142/99 97.9 ???F (36.6 ???C) Oral 61 18 97 % Room air 24 Hour I AND Os: No intake/output data recorded. Physical Exam: General: Asleep, lying in bed, no apparent distress. Cardiac: Regular rate and rhythm Pulmonary: Normal respiratory effort on RA Abdomen: Non-distended. Extremities: No peripheral edema Lab Data: 13.3 15.8 / 237 / 46.1 CBC: 09/14/2024: 4:46 AM 138 105 25 / 182 4.2 24 1.12 BMP: 09/14/2024: 4:46 AM BMP: BMP (last 3 years, up to 8 values) 09/14/2024 4:46 AM Na 138 K 4.2 Cl 105 CO2 24 Gap 13 Glu 182 BUN 25 Cr 1.12 Ca 9.7 eGFR 81 CBC: CBC (last 3 years, up to 8 values) 09/14/2024 4:46 AM WBC 13.3 RBC 4.74 Hgb 15.8 Hct 46.1 MCV 97 RDW 13.9 Plt 237 PT/PTT/INR: PT/PTT/INR (last 3 years, up to 8 values) 09/15/2024 6:19 AM INR 1.22 Type AND Screen: Type AND Screen (Last result in the past 30 days) 09/21/2024 09/15/2024 7:02 AM 6:19 AM ABO Rh A Negative A Negative Screen Int. Negative Negative ABG: Arterial Blood Gases None BNP: No result for BNP Hepatic Panel: LFT's (last 3 years, up to 8 values) No lab values to display. Glucose: Fingerstick Glucose (last 72 hours) Glucose 09/21/24 1051 96 A1c: No results found for: HBA1C TSH: No results found for: TSH Blood Culture: Blood Culture No lab values to display. Urine Culture: Urine Culture (last 1 year) No lab values to display. Respiratory Culture: Respiratory Culture, Misc No lab values to display. Wt Readings from Last 5 Encounters: 09/21/24 217 lb (98.4 kg) 09/14/24 218 lb 1.6 oz (98.9 kg) Imaging Results: CT Head for navigation No change in the partially calcified mass in the frontal lobes extending through the corpus callosum and the focal area of hyperdensity in the left thalamus in keeping with multifocal glioma. Moderate vasogenic edema is present in the right (more content not included)... Normal [employer] TYPE AND SCREENon 09-21-2024 Blood group antibody screen Ql Negative NMT [employer] ABO and Rh group Nom (Bld) Blood group A Rh(D) negative Normal [employer] Comment on above: Performed By: #### T S #### [facility] [address] [place], [place], ABSC INT Negative Normal [employer] Comment on above: Performed By: #### T S #### [facility] [address] [place], [place], Anesthesia Preprocedure Eval uationon 09-20-2024 [employer] Authentication Interface Message Text ASA: 3 Past Medical History and Review of Systems Pulmonary - negative ROS Dental - negative ROS Endo - negative ROS Neuro/Psych Comment: MRI Head W/ + W/O 09/14/24 FINDINGS: TUMOR: Location: There is a 5.1 x 5.0 x 3.8 cm (AP x TV x CC) heterogenous enhancing mass in the frontal lobes crossing midline at the corpus callosum and demonstrates mild internal vascularity, blood product and prominent surrounding vasogenic edema. FLAIR/T2 hyperintensity extends in the bilateral frontal lobes with a small component which courses along the left internal capsule, basal ganglia and thalamus down to the left cerebral peduncle. There are additional enhancing foci which are contiguous with the T2/FLAIR signal measure up to 1.0 cm in bilateral frontal lobes (Series 12, Image 73) and a third enhancing lesion is seen in the left lateral cerebral peduncle (Series 12, Image 108). Enhancement: There is abnormal heterogenous enhancement on postcontrast imaging. Diffusion: Areas of abnormally decreased diffusion are seen, suggesting areas of hypercellular tumor. Other: A few areas of calcification and blood product. Mass effect on the anterior lateral ventricles, right greater than left. No herniation. ADDITIONAL FINDINGS: Remaining Brain Parenchyma: No acute infarct. Ventricles and Sulci: Normal. Skull Base: Craniocervical junction is normal. Expected marrow signal. Vasculature: Major intracranial vessels have normal flow voids suggesting patency. Extracranial structures: The paranasal sinuses and mastoid air cells are clear. The orbits and extracranial soft tissues demonstrate no significant abnormality. 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 Less likely differential diagnoses would include metastasis or lymphoma. Cardiovascular - negative ROS (+) Surgical risk: low; Cardiac condition: no apparent ECG reviewed GI/Hepatic/Renal - negative ROS Heme/Other - negative ROS Other ROS: 48 yo male with no significant past medical history who presented with headache to [facility]. CT head showed intracranial tumor. He was transferred to for NSGY consult. MRI brain showed multifocal glioblastoma. No evidence of primary or metastatic disease in chest/abdomen or pelvis. He was started on dexamethasone. NSGY will schedule follow up with Dr. Dupree on 09/17. He is scheduled for brain biopsy on 09/25. Physical Exam Airway Mallampati: I TM distance: Adequate Micrognathia: Not present Jaw opening: Adequate Neck flexion: Adequate Dental PE (+) intact Pulmonary - pulmonary exam normal Comment: Chest clear to auscultation bilaterally Cardiovascular - cardiovascular exam normal Comment: RRR with S1S2; no murmurs, gallops, or rubs Neuro - neurological exam normal Comment: Awake, alert, oriented, No motor deficits and sensation grossly intact Plan Anesthesia plan: general; (ETT) Anesthesia risks / alternatives discussed pre-op Questions answered / anesthesia plan accepted Past medical history, surgical history, allergies, and medications reviewed. Pertinent laboratory tests, EKG, imaging, and consults reviewed and I have personally seen and evaluated the patient, repeating priest portions of the history and physical examination. Attestation: Anesthesia options were discussed with the patient and/or legal labor union business representative. The risks, benefits and alternatives were reviewed. Questions regarding anesthesia were answered. Patient and/or legal labor union business representative knows such anesthetics and procedures may be performed by Resident physicians, Certified Anesthesiologist Assistants, or Certified Nurse Anesthetists under the supervision of a physician. The patient /or the patient's legal labor union business representative agree with the plan for anesthesia. PATFORM Normal [employer] Patient Instructionson 09-17 [employer] Authentication Interface Message Text Plan for OR on 09/25 - will let you know if this changes Normal [employer] Progress Noteson 09-17-2024 [employer] Authentication Interface Message Text [employer] Neurological Surgery follow up note: Anurag Joseph 48 year old male Follow up for frontal brain mass Accompanied by , Karyna and [id number] HPI Intermittent ALVAREZ, relief w/ tylenol Disequilibrium present Over the summer, noticed disinterest in hobbies Fatigue has worsened over the last several weeks Per [id number], executive functioning AND decision-making has been poor recently No c/o vision changes, seizures, or sensory changes Scheduled for biopsy on 09/25 Hospital Course 09/13/24 - 09/15/24: 48 yo male with no significant past medical history who presented with headache to [facility] ED. CT head showed intracranial tumor. He was transferred to for NSGY consult. MRI brain showed multifocal glioblastoma. No evidence of primary or metastatic disease in chest/abdomen or pelvis. He was started on dexamethasone. NSGY will schedule follow up with Dr. Dupree on 09/17. He is scheduled for brain biopsy on 09/25. Review of Systems Constitutional: Negative. HENT: Negative. Eyes: Negative. Respiratory: Negative. Cardiovascular: Negative. Gastrointestinal: Negative. Genitourinary: Negative. Musculoskeletal: Negative. Skin: Negative. Neurological: Positive for headaches. Endo/Heme/Allergies: Negative. Psychiatric/Behavioral : Positive for memory loss. No past medical history on file. No past surgical history on file. Vitals: 09/17/24 1109 BP: 132/71 Pulse: 76 Resp: 18 SpO2: 97% Physical Exam HENT: Head: Normocephalic. Mouth/Throat: Mouth: Mucous membranes are moist. Pharynx: Oropharynx is clear. Eyes: Extraocular Movements: Extraocular movements intact. Conjunctiva/sclera: Conjunctivae normal. Pupils: Pupils are equal, round, and reactive to light. Pulmonary: Effort: Pulmonary effort is normal. Musculoskeletal: General: Normal range of motion. Cervical back: Normal range of motion and neck supple. Skin: General: Skin is warm and dry. Neurological: General: No focal deficit present. Mental Status: He is alert and oriented to person, place, and time. Cranial Nerves: No cranial nerve deficit. Sensory: No sensory deficit. Motor: No weakness. Slightly unsteady gait MRI Head W/ + W/O 09/14/24 FINDINGS: TUMOR: Location: There is a 5.1 x 5.0 x 3.8 cm (AP x TV x CC) heterogenous enhancing mass in the frontal lobes crossing midline at the corpus callosum and demonstrates mild internal vascularity, blood product and prominent surrounding vasogenic edema. FLAIR/T2 hyperintensity extends in the bilateral frontal lobes with a small component which courses along the left internal capsule, basal ganglia and thalamus down to the left cerebral peduncle. There are additional enhancing foci which are contiguous with the T2/FLAIR signal measure up to 1.0 cm in bilateral frontal lobes (Series 12, Image 73) and a third enhancing lesion is seen in the left lateral cerebral peduncle (Series 12, Image 108). Enhancement: There is abnormal heterogenous enhancement on postcontrast imaging. Diffusion: Areas of abnormally decreased diffusion are seen, suggesting areas of hypercellular tumor. Other: A few areas of calcification and blood product. Mass effect on the anterior lateral ventricles, right greater than left. No herniation. ADDITIONAL FINDINGS: Remaining Brain Parenchyma: No acute infarct. Ventricles and Sulci: Normal. Skull Base: Craniocervical junction is normal. Expected marrow signal. Vasculature: Major intracranial vessels have normal flow voids suggesting patency. Extracranial structures: The paranasal sinuses and mastoid air cells are clear. The orbits and extracranial soft tissues demonstrate no significant abnormality. 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 Less likely differential diagnoses would include metastasis or lymphoma. CT Head For Navigation 09/15/24 FINDINGS: CT for intraoperative navigation. No change in the partially calcified mass in the frontal lobes extending through the corpus callosum and the focal area of hyperdensity in the left thalamus in keeping with multifocal glioma. Moderate vasogenic edema is present in the right frontal lobe and minimal in the left frontal lobe. IMPRESSION: CT obtained for surgical planning purposes without significant change. Anurag was seen today for new patient, to establish relationship. 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 Plan for ri (more content not included)... Normal [employer] CT CHEST/ABD/PELVIS W/ CONTR Balbir 09-15-2024 CT CHEST/ABD/PELVIS W/ CONTRAST EXAMINATION: CT CHEST/ABD/PELVIS W/ CONTRAST 09/14/2024 10:36 PM CLINICAL HISTORY: eval for malignancy, brain mass COMPARISON: None TECHNIQUE: Contiguous axial images were obtained through the chest abdomen and pelvis from the level of the thoracic inlet through the pubic symphysis following administration of intravenous contrast. MPR sagittal and coronal reconstructions were obtained from the axial data. Before infusion of intravenous contrast, radiology personnel investigated the possibility of an allergic history and of any history of reaction to iodinated contrast material. Contrast Protocol: Omnipaque 350 [>or =100lb] 100 ml [<100 lb] 1 ml per 1 lb. INTRA-PROCEDURE MEDS: iohexol (OMNIPAQUE) 300 MG/ML injection 50 mL Route: Oral iohexol (OMNIPAQUE) 350 MG/ML injection 100 mL Route: Intravenous Push FINDINGS: Examination somewhat limited due to motion artifact. Cardiovasculature: Unremarkable Mediastinum/Pericardiu m: Unremarkable Pleura: Unremarkable Central Airways: Widely patent Lungs: Linear consolidative opacities in the lung bases bilaterally favored to represent atelectasis and/or scarring. Nodules: No nodules are present that require follow up. Lymph Nodes: No thoracic lymphadenopathy is evident. Hepatobiliary: Unremarkable liver without biliary dilation. Pancreas: Unremarkable Spleen: Unremarkable Adrenal Glands: Low-density 7 mm right adrenal nodule is favored to represent an adenoma. The left adrenal gland is unremarkable. Kidneys, ureters, and bladder: No calculi or hydroureteronephrosis. Abdominal and pelvic vasculature: Unremarkable GI tract: No evidence of obstruction. The appendix is within normal limits. Colonic diverticulosis is present without evidence for diverticulitis. Peritoneum and retroperitoneum: No free fluid or free air. Lymph Nodes: No lymphadenopathy. Prostate and seminal vesicles: Unremarkable Visualized musculoskeletal structures: No acute fracture or destructive osseous lesion. IMPRESSION: 1. No evidence of primary or metastatic disease in the chest, abdomen, or pelvis. 2. No acute process identified. MACRO: None I have personally reviewed the images and agree with the resident's interpretation. Normal The [employer] CT Chest and Abdomen and Pel vis W contrast IVOrdered By: Sohan Calderon on 09-15-2024 CT DLP 1362.8 (mGy.cm) [employer] Work Phone: CT Series Entire body [employer] Work Phone: CTDI VOL 16.7 (mGy) [employer] Work Phone: PHANTOM TYPE IEC Body Dosimetry [employer] Work Phone: [employer] Work Phone: CT Chest and Abdomen and Pel vis W contrast Willa 09-15-2024 EXAMINATION: CT CHEST/ABD/PELVIS W/ CONTRAST 09/14/2024 10:36 PM CLINICAL HISTORY: eval for malignancy, brain mass COMPARISON: None TECHNIQUE: Contiguous axial images were obtained through the chest abdomen and pelvis from the level of the thoracic inlet through the pubic symphysis following administration of intravenous contrast. MPR sagittal and coronal reconstructions were obtained from the axial data. Before infusion of intravenous contrast, radiology personnel investigated the possibility of an allergic history and of any history of reaction to iodinated contrast material. Contrast Protocol: Omnipaque 350 [>or =100lb] 100 ml [<100 lb] 1 ml per 1 lb. INTRA-PROCEDURE MEDS: iohexol (OMNIPAQUE) 300 MG/ML injection 50 mL Route: Oral iohexol (OMNIPAQUE) 350 MG/ML injection 100 mL Route: Intravenous Push FINDINGS: Examination somewhat limited due to motion artifact. Cardiovasculature: Unremarkable Mediastinum/Pericardiu m: Unremarkable Pleura: Unremarkable Central Airways: Widely patent Lungs: Linear consolidative opacities in the lung bases bilaterally favored to represent atelectasis and/or scarring. Nodules: No nodules are present that require follow up. Lymph Nodes: No thoracic lymphadenopathy is evident. Hepatobiliary: Unremarkable liver without biliary dilation. Pancreas: Unremarkable Spleen: Unremarkable Adrenal Glands: Low-density 7 mm right adrenal nodule is favored to represent an adenoma. The left adrenal gland is unremarkable. Kidneys, ureters, and bladder: No calculi or hydroureteronephrosis. Abdominal and pelvic vasculature: Unremarkable GI tract: No evidence of obstruction. The appendix is within normal limits. Colonic diverticulosis is present without evidence for diverticulitis. Peritoneum and retroperitoneum: No free fluid or free air. Lymph Nodes: No lymphadenopathy. Prostate and seminal vesicles: Unremarkable Visualized musculoskeletal structures: No acute fracture or destructive osseous lesion. IMPRESSION: 1. No evidence of primary or metastatic disease in the chest, abdomen, or pelvis. 2. No acute process identified. MACRO: None I have personally reviewed the images and agree with the resident's interpretation. RADIOLOGY Sohan Calderon MD - 09/15/2024 EXAMINATION: CT CHEST/ABD/PELVIS W/ CONTRAST 09/14/2024 10:36 PM CLINICAL HISTORY: eval for malignancy, brain mass COMPARISON: None TECHNIQUE: Contiguous axial images were obtained through the chest abdomen and pelvis from the level of the thoracic inlet through the pubic symphysis following administration of intravenous contrast. MPR sagittal and coronal reconstructions were obtained from the axial data. Before infusion of intravenous contrast, radiology personnel investigated the possibility of an allergic history and of any history of reaction to iodinated contrast material. Contrast Protocol: Omnipaque 350 [>or =100lb] 100 ml [<100 lb] 1 ml per 1 lb. INTRA-PROCEDURE MEDS: iohexol (OMNIPAQUE) 300 MG/ML injection 50 mL Route: Oral iohexol (OMNIPAQUE) 350 MG/ML injection 100 mL Route: Intravenous Push FINDINGS: Examination somewhat limited due to motion artifact. Cardiovasculature: Unremarkable Mediastinum/Pericardiu m: Unremarkable Pleura: Unremarkable Central Airways: Widely patent Lungs: Linear consolidative opacities in the lung bases bilaterally favored to represent atelectasis and/or scarring. Nodules: No nodules are present that require follow up. Lymph Nodes: No thoracic lymphadenopathy is evident. Hepatobiliary: Unremarkable liver without biliary dilation. Pancreas: Unremarkable Spleen: Unremarkable Adrenal Glands: Low-density 7 mm right adrenal nodule is favored to represent an adenoma. The left adrenal gland is unremarkable. Kidneys, ureters, and bladder: No calculi or hydroureteronephrosis. Abdominal and pelvic vasculature: Unremarkable GI tract: No evidence of obstruction. The appendix is within normal limits. Colonic diverticulosis is present without evidence for diverticulitis. Peritoneum and retroperitoneum: No free fluid or free air. Lymph Nodes: No lymphadenopathy. Prostate and seminal vesicles: Unremarkable Visualized musculoskeletal structures: No acute fracture or destructive osseous lesion. IMPRESSION: 1. No evidence of primary or metastatic disease in the chest, abdomen, or pelvis. 2. No acute process identified. MACRO: None I have personally reviewed the images and agree with the resident's interpretation. [employer] CT HEAD FOR NAVIGATION W/Oon 09-15-2024 CT HEAD FOR NAVIGATION W/O EXAMINATION: CT HEAD FOR NAVIGATION W/O 09/15/2024 08:45 AM CLINICAL HISTORY: in preparation for OR ASSOCIATED DIAGNOSIS: in preparation for OR ORDERING PROVIDER: LISA CADENA TECHNOLOGISTS NOTE: COMPARISON: MR HEAD W/+W/O 09/14/2024, 11:[address] NEURO IMAGE IMPORT(FRANNIE) 09/13/2024, 5:10 PM TECHNIQUE: Thin axial images were obtained through the brain for surgical planning without contrast. FINDINGS: CT for intraoperative navigation. No change in the partially calcified mass in the frontal lobes extending through the corpus callosum and the focal area of hyperdensity in the left thalamus in keeping with multifocal glioma. Moderate vasogenic edema is present in the right frontal lobe and minimal in the left frontal lobe. IMPRESSION: CT obtained for surgical planning purposes without significant change. MACRO: None Normal The [employer] System CT Head WO contrastOrdered B y: Jordan Bhagatg on 09-15-2024 CT DLP 1343.7 (mGy.cm) [employer] Work Phone: CT Series Head [facility] Work Phone: CTDI VOL 67.5 (mGy) [facility] Work Phone: PHANTOM TYPE IEC Head Dosimetry [employer] Work Phone: [facility] Work Phone: CT Head WO contraston 2023 EXAMINATION: CT HEAD FOR NAVIGATION W/O 09/15/2024 08:45 AM CLINICAL HISTORY: in preparation for OR ASSOCIATED DIAGNOSIS: in preparation for OR ORDERING PROVIDER: LISA CADENA TECHNOLOGISTS NOTE: COMPARISON: MR HEAD W/+W/O 09/14/2024, 11:[address] NEURO IMAGE IMPORT(FRANNIE) 09/13/2024, 5:10 PM TECHNIQUE: Thin axial images were obtained through the brain for surgical planning without contrast. FINDINGS: CT for intraoperative navigation. No change in the partially calcified mass in the frontal lobes extending through the corpus callosum and the focal area of hyperdensity in the left thalamus in keeping with multifocal glioma. Moderate vasogenic edema is present in the right frontal lobe and minimal in the left frontal lobe. IMPRESSION: CT obtained for surgical planning purposes without significant change. MACRO: None RADIOLOGY Jordan Flores MD - 09/15/2024 EXAMINATION: CT HEAD FOR NAVIGATION W/O 09/15/2024 08:45 AM CLINICAL HISTORY: in preparation for OR ASSOCIATED DIAGNOSIS: in preparation for OR ORDERING PROVIDER: LISA CADENA TECHNOLOGISTS NOTE: COMPARISON: MR HEAD W/+W/O 09/14/2024, 11:[address] NEURO IMAGE IMPORT(FRANNIE) 09/13/2024, 5:10 PM TECHNIQUE: Thin axial images were obtained through the brain for surgical planning without contrast. FINDINGS: CT for intraoperative navigation. No change in the partially calcified mass in the frontal lobes extending through the corpus callosum and the focal area of hyperdensity in the left thalamus in keeping with multifocal glioma. Moderate vasogenic edema is present in the right frontal lobe and minimal in the left frontal lobe. IMPRESSION: CT obtained for surgical planning purposes without significant change. MACRO: None [facility] Radiology Study observation (narrative) [facility] PROTHROMBIN TIME AND INRon 1 11-15-2023 INR Coag (PPP) [Relative time] 1.22 {INR} High 0.90 - 1.[address] [facility] Interpretation and review of laboratory results Abnormal [facility] PT Coag (PPP) [Time] 13.7 s High [facility] Coag (PPP) [Relative time] 1.22 {INR} High 0.90-1.10 [facility] Comment on above: Performed By: #### P T ####[facility] [id number] [place], [place], PT Coag (PPP) [Time] 13.7 s High 9.7-12.9 [facility] Comment on above: Performed By: #### P T ####[facility] [id number] [place], [place], Progress Noteson 09-15-2024 [employer] Authentication Interface Message Text 09/15/24 1202 Discharge Note Discharge Time 1202 Discharged to: Home Mode of Transport Wheelchair Patient Follow-up and Care Perscriptions E-scribed to pharmacy Patient Instructions Verbal AND written discharge instructions given AND reviewed;Symptom worsening Verbalized Understanding Patient;Spouse Belongings With patient D/c home with follow-up scheduled for Tuesday09/17/24 @ 10:30. Patient and demonstrated understanding of discharge instructions and symptom worsening. All belongings taken home with patient. Normal The [employer] TYPE AND SCREENon 09-15-2024 ABO and Rh group Nom (Bld) Blood group A Rh(D) negative [facility] ABO and Rh group Nom (Bld) No Previous Results [facility] Blood group antibody screen Ql Negative [facility] ABO and Rh group Nom (Bld) Blood group A Rh(D) negative Normal [facility] Comment on above: Performed By: #### T S #### [facility] [address] [place], [place], ABO and Rh group Nom (Bld) No Previous Results Normal [facility] Comment on above: Performed By: #### T S #### [facility] [address] [place], [place], ABSC INT Negative Normal [facility] Comment on above: Performed By: #### T S #### [facility] [address] [place], [place], BASIC METABOLIC PANELon 08-18 Anion gap [Moles/Vol] 13 mmol/L Normal 10-20 [facility] Comment on above: Performed By: #### C H8, MG #### [facility] [address] [place], [place], Calcium [Mass/Vol] 9.7 mg/dL Normal 8.6-10.3 The [employer] [facility] Comment on above: Performed By: #### C H8, MG #### [facility] [address] [place], [place], Chloride [Moles/Vol] 105 mmol/L Normal 98-107 [facility] Comment on above: Performed By: #### C H8, MG #### [facility] [address] [place], [place], CO2 [Moles/Vol] 24 mmol/L Normal 21-31 The [employer] [facility] Comment on above: Performed By: #### C H8, MG #### [facility] [address] [place], [place], Creatinine [Mass/Vol] 1.12 mg/dL Normal 0.70-1.30 [facility] Comment on above: Performed By: #### C H8, MG #### [facility] [address] [place], [place], ESTIMATED GFR (CKD-EPI) 81 mL/min/1.73sqm Normal >=60 The [employer] System Comment on above: Result Comment: 2020 CKD EPI Equation using Creatinine without Race Comment: Estimated glomerular filtration rate (eGFR) is calculated without a race coefficient. Values should be interpreted in the context of the patient's full clinical presentation. Reference: 1. Harman C, Linda M, Desiree ANDERSON, et al.. A Unifying Approach for GFR Estimation: Recommendations of the NKF-ASN Task Force on Reassessing the Inclusion of Race in Diagnosing Kidney Disease. Swiss Journal of Kidney Diseases 2021;79(2):268-88.e1. 2. N Engl J Med 1 Vol. 385 Issue 19 Pages 2444-1470 Performed By: #### C H8, MG #### [facility] [address] [place], [place], Glucose [Mass/Vol] 182 mg/dL High 74-109 The [employer] System Comment on above: Performed By: #### C H8, MG #### [facility] [address] [place], [place], Potassium [Moles/Vol] 4.2 mmol/L Normal 3.5-5.0 [facility] Comment on above: Performed By: #### C H8, MG #### [facility] [address] [place], [place], Sodium [Moles/Vol] 138 mmol/L Normal 136-145 [facility] Comment on above: Performed By: #### C H8, MG #### [facility] [address] [place], [place], Urea nitrogen [Mass/Vol] 25 mg/dL Normal 7-25 [facility] Comment on above: Performed By: #### C H8, MG #### [facility] [address] [place], [place], Basic metabolic 2000 panelon 09-14-2024 Anion gap [Moles/Vol] 13 mmol/L 10 - 20 [facility] Calcium [Mass/Vol] 9.7 mg/dL 8.6 - 10. 3 mg/dL [facility] Chloride [Moles/Vol] 105 mmol/L 98 - 10 7 mmol/L [facility] CO2 [Moles/Vol] 24 mmol/L 21 - 31 mmol/L [facility] Creatinine [Mass/Vol] 1.12 mg/dL 0.70 - 1.30 mg/dL [facility] GFR/1.73 sq M.predicted CKD-EPI (S/P/Bld) [Vol rate/Area] 81 - PINF [facility] Comment on above: 2020 CKD EPI Equatio n using Creatinine without Race Comment: Estimated glomerular filtration rate (eGFR) is calculated without a race coefficient. Values should be interpreted in the context of the patient's full clinical presentation. Reference: 1. Harman C, Linda M, Desiree ANDERSON, et al.. A Unifying Approach for GFR Estimation: Recommendations of the NKF-ASN Task Force on Reassessing the Inclusion of Race in Diagnosing Kidney Disease. [place] Journal of Kidney Diseases 202;79(2):268-88.e1. 2. N Engl J Med 1 Vol. 385 Issue 19 Pages 7630-2766 Glucose [Mass/Vol] 182 mg/dL High 74 - 109 mg/dL [facility] Interpretation and review of laboratory results Abnormal [facility] Potassium [Moles/Vol] 4.2 mmol/L 3.5 - 5.0 mmol/L [facility] Sodium [Moles/Vol] 138 mmol/L 136 - 145 mmol/L [facility] Urea nitrogen [Mass/Vol] 25 mg/dL 7 - 25 mg/dL [facility] CBC WITH DIFFERENTIALon 08-18 Basophils (Bld) [#/Vol] 0.02 10*3/uL 0.00 - 0.20 K/uL [facility] Basophils/100 WBC (Bld) 0.2 % NINF - 1.9 % [facility] Eosinophils (Bld) [#/Vol] 0.03 10*3/uL 0. 00 - 0.70 K/uL [facility] Eosinophils/100 WBC (Bld) 0.3 % 0. 1 - 4.0 % [facility] Erythrocyte distribution width (RBC) [Ratio] 13.9 % 11.5 - 14.5 % [facility] Hematocrit (Bld) [Volume fraction] 46.1 % 41.0 - 53.0 % [facility] Hemoglobin (Bld) [Mass/Vol] 15.8 g/dL 13.9 - 16.3 g/dL [facility] Interpretation and review of laboratory results Abnormal [facility] Lymphocytes (Bld) [#/Vol] 0.56 10*3/uL Low 1. 00 - 4.80 K/uL [facility] Lymphocytes/100 WBC (Bld) 4.2 % Low 24 .0 - 44.0 % [facility] MCH (RBC) [Entitic mass] 33.5 pg 26. 0 - 34.0 pg [facility] MCHC (RBC) [Mass/Vol] 34.4 g/dL 32.0 - 35.9 g/dL [facility] MCV (RBC) [Entitic vol] 97 fL 80 - 100 fL [facility] Monocytes (Bld) [#/Vol] 0.33 10*3/uL 0.20 - 1.00 K/uL [facility] Monocytes/100 WBC (Bld) 2.5 % 2.0 - 11.0 % [facility] Neutrophils (Bld) [#/Vol] 12.4 10*3/uL High 1. 50 - 8.00 K/uL [facility] Neutrophils/100 WBC (Bld) 92.9 % High 31 .0 - 76.0 % [facility] Platelet mean volume (Bld) [Entitic vol] 8.8 fL 7.5 - 11.2 fL [facility] Platelets (Bld) [#/Vol] 237 10*3/uL 150 - 400 K/uL [facility] RBC (Bld) [#/Vol] 4.74 10*6/uL [facility] WBC (Bld) [#/Vol] 13.3 10*3/uL High 4.5 - 11.5 K/uL [facility] Basophils (Bld) [#/Vol] 0.02 10*3/uL Normal 0.00-0.20 [facility] Comment on above: Performed By: #### C BCDSAT ####[facility] PATHOLOGY [id number] [place], [place], Basophils/100 WBC (Bld) 0.2 % Normal <=1.9 T [facility] Comment on above: Performed By: #### C BCDSAT ####[facility] PATHOLOGY [id number] [place], [place], Eosinophils (Bld) [#/Vol] 0.03 10*3/uL Normal 0.00-0.7 0 [facility] Comment on above: Performed By: #### C BCDSAT ####[facility] PATHOLOGY [id number] [place], [place], Eosinophils/100 WBC (Bld) 0.3 % Normal 0.1-4.0 [facility] Comment on above: Performed By: #### C BCDSAT ####[facility] PATHOLOGY [id number] [place], [place], Erythrocyte distribution width (RBC) [Ratio] 13.9 % Normal 11.5-14.5 [facility] Comment on above: Performed By: #### C BCDSAT ####[facility] PATHOLOGY [id number] [place], [place], Hematocrit (Bld) [Volume fraction] 46.1 % Normal 41.0-53.[address] [facility] Comment on above: Performed By: #### C BCDSAT ####S PATHOLOGY [id number] [place], [place], Hemoglobin (Bld) [Mass/Vol] 15.8 g/dL Normal 13.9-16.[address] [facility] Comment on above: Performed By: #### C BCDSAT ####[facility] PATHOLOGY [id number] [place], [place], Lymphocytes (Bld) [#/Vol] 0.56 10*3/uL Low 1.00-4.[address] [facility] Comment on above: Performed By: #### C BCDSAT ####[facility] PATHOLOGY [id number] [place], [place], Lymphocytes/100 WBC (Bld) 4.2 % Low 24.0-44.0 [facility] Comment on above: Performed By: #### C BCDSAT ####[facility] PATHOLOGY [id number] [place], MCH (RBC) [Entitic mass] 33.5 pg Normal 26.0-34.[address] [facility] Comment on above: Performed By: #### C BCDSAT ####[facility] PATHOLOGY [id number] [place] [address], MCHC (RBC) [Mass/Vol] 34.4 g/dL Normal 32.0-35.[address] [facility] Comment on above: Performed By: #### C BCDSAT ####S PATHOLOGY [id number] [place], [place], MCV (RBC) [Entitic vol] 97 fL Normal 80-100 T [facility] Comment on above: Performed By: #### C BCDSAT ####S PATHOLOGY [id number] [place], [place], Monocytes (Bld) [#/Vol] 0.33 10*3/uL Normal 0.20-1.00 [facility] Comment on above: Performed By: #### C BCDSAT ####S PATHOLOGY [id number] [place], Monocytes/100 WBC (Bld) 2.5 % Normal 2.0-11.0 T [facility] Comment on above: Performed By: #### Kamron JOSEPHAT ####[facility] PATHOLOGY [id number] [place], [place], Neutrophils (Bld) [#/Vol] 12.40 10*3/uL High 1.50-8. 00 [facility] Comment on above: Performed By: #### Kamron JOSEPHAT ####[facility] PATHOLOGY [id number] [place], [place], Neutrophils/100 WBC (Bld) 92.9 % High 31.0-76.0 The [facility] Comment on above: Performed By: #### Kamron JOSEPHAT ####[facility] PATHOLOGY [id number] [place], [place], Platelet mean volume (Bld) [Entitic vol] 8.8 fL Normal 7.5-11.2 [facility] Comment on above: Performed By: #### Kamron JOSEPHAT ####[facility] PATHOLOGY [id number] [place], [place], Platelets (Bld) [#/Vol] 237 10*3/uL Normal 150-400 [facility] Comment on above: Performed By: #### Kamron JOSEPHAT ####[facility] PATHOLOGY [id number] [place], [place], RBC (Bld) [#/Vol] 4.74 10*6/uL Normal 4.50-5.90 [facility] Comment on above: Performed By: #### Kamron JOSEPHAT ####[facility] PATHOLOGY [id number] [place], [place], WBC (Bld) [#/Vol] 13.3 10*3/uL High 4.5-11.5 [facility] Comment on above: Performed By: #### Kamron JOSEPHAT ####[facility] PATHOLOGY [id number] [place], [place], CT Chest and Abdomen and Pel vis W contrast Willa 09-14-2024 Radiology Study [facility]narrative) [facility] [employer] Authentication Interface Message Text NEUROSURGERY CONSULT Patient Name: Anurag Joseph PRIMARY CARE PHYSICIAN: No primary care provider on file. CONSULTED BY: ED CONSULTED FOR: Brain mass CHIEF COMPLAINT: ALVAREZ HPI: Patient is a 48 year old male with insignificant PMH who presents for a couple months of occipital ALVAREZ which are usually worse in the morning upon waking. Patient endorses fatigue and states that his feels like he has been experiencing frequent mood swings. Upon arrival to OSH a CTH was conducted which demonstrates a frontal mass with surrounding vasogenic edema for which patient was transferred to [facility] and NSGY was consulted. SH: Denies tobacco, EtOH, or illicit drug use FH: Not pertinent to current hospital issue ASA/PLAVIX/COUMADIN: None PAST MEDICAL HISTORY: No past medical history on file. PAST SURGICAL HISTORY: No past surgical history on file. FAMILY HISTORY: No family history on file. SOCIAL HISTORY: Social History Occupational History Not on file Tobacco Use Smoking status: Not on file Smokeless tobacco: Not on file Substance and Sexual Activity Alcohol use: Not on file Drug use: Not on file Sexual activity: Not on file MEDICATIONS: ALLERGIES: Not on File COMPLETE REVIEW OF SYSTEMS: ROS 09/27 systems negative other than above LABS: CBC/PT/INR No lab values to display. WBC/Diff No lab values to display. Basic Metabolic Panel No lab values to display. Hepatic/Biliary/Pancre as No lab values to display. Cardiac None Arterial Blood Gases None Fingerstick Glucose None CSF Culture No lab values to display. Urine Culture No lab values to display. Pyogen Culture None Blood Culture No lab values to display. Sputum Culture None NEURO EXAM: A AND Ox3 PERRL EOMI FS TM BUE: 02/18, no drift BLE: 02/18 PHYSICAL EXAM: Vitals: 09/14/24 0010 BP: 149/91 Pulse: (!) 104 Resp: 19 Temp: 98.4 ???F (36.9 ???C) SpO2: 96% General appearance: Alert, pleasant, no distress. Skin: Skin color normal. No rashes or lesions. Head: Normocephalic. No masses, lesions. Eyes: Conjunctivae not injected /corneas clear. Ears: External ears normal. Nose/Sinuses: External nose normal. Neck: Neck supple. No adenopathy. Lungs: No acute respiratory distress. Heart: Slightly tachycardic to HR of 104. DATA: Radiology: CTH (OSH): frontal mass with surrounding vasogenic edema ASSESSMENT: 48 year old male with insignificant PMH who presents for 1 month of occipital ALVAREZ which are usually worse in the morning upon waking. Patient endorses fatigue and states that his feels like he has been experiencing frequent mood swings. Upon arrival to OSH a CTH was conducted which demonstrates a frontal mass with surrounding vasogenic edema for which patient was transferred to [facility] and NSGY was consulted. RECOMMENDATIONS: -Medicine admission -MRI head wwo -CT CAP -Hold all thinners -Remainder per primary Above plan was discussed with Dr. Dupree (staff) Lisa Cadena PA-C Neurosurgery Pager: [phone] Split/Shared Documentation I approve the management plan for this patient and take responsibility for the plan as documented. Independent Interpretation of Tests Performed by Another Physician/WILLY: I personally performed, reviewed, and interpreted CTH with findings of brain mass. Lisa Cadena PA-C [place] [facility] ED Provider Noteson 09-14-20 [employer] Authentication Interface Message Text Attestation signed by Nikita Beltran DO at 09/15/2024 2:35 AM ATTENDING NOTE I saw and evaluated the patient. I personally obtained the priest and critical portions of the history and physical exam. I reviewed the resident's documentation and discussed the patient with the resident. I agree with the resident's medical decision making as documented in the resident's note. Nikita Beltran DO EMERGENCY DEPARTMENT - VISIT NOTE -------- HISTORY OF PRESENT ILLNESS ---- Chief Complaint Patient presents with brain Patient is transfer from [place]. 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 He has been reporting increased fatigue The history is provided by the Patient. Anurag Joseph is a 48 year old male with no known PMH presenting to the ED as a transfer from [place] for NSGY. Patient presented to the ED for one month of occipital headaches and was found to have a frontal mass on CT. Headaches are usually worse in the morning. He denies any frontal headaches. He also endorses fatigue and says his feels he has been having mood swings. He denies vision changes, aphasia, dysarthria, numbness/tingling in the extremities, weakness, or N/V. He has not had any confusion or syncope. 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 PHYSICAL EXAM BP 124/88 (BP Location: right arm) Pulse 100 Temp 97.9 ???F (36.6 ???C) (Oral) Resp 16 Ht 6' 1 (1.854 m) Wt 218 lb 1.6 oz (98.9 kg) Comment: standing scale weight SpO2 94% BMI 28.77 kg/m??? Physical Exam Constitutional: General: He is not in acute distress. Eyes: Conjunctiva/sclera: Conjunctivae normal. Pupils: Pupils are equal, round, and reactive to light. Cardiovascular: Rate and Rhythm: Normal rate and regular rhythm. Heart sounds: Normal heart sounds. Pulmonary: Effort: No respiratory distress. Breath sounds: No wheezing, rhonchi or rales. Abdominal: Palpations: Abdomen is soft. Tenderness: There is no abdominal tenderness. There is no guarding or rebound. Skin: General: Skin is warm and dry. Neurological: Mental Status: He is alert and oriented to person, place, and time. Cranial Nerves: No cranial nerve deficit. Sensory: No sensory deficit. Motor: No weakness. MEDICAL DECISION MAKING and ED COURSE See ED course for any discussion with other health care provider(s) Evaluated by EM attending Nikita Beltran Course: ED Course as of 09/14/24 1048 TueSep 14, 2024 001 BP: 149/91 No hypotension [JT] 0012 Temperature: 98.4 ???F (36.9 ???C) Afebrile [JT] 0012 Heart Rate(!): 104 Mild tachycardia [JT] 0012 SpO2: 96 % No hypoxia [JT] 0026 Discussed w/ Lisa from NSGY who is aware of patient [JT] 0153 CT NEURO IMAGE IMPORT Personally reviewed OSH CTH: Large R frontal mass crossing midline [JT] 0308 NSGY recommends medicine admission and MRI brain w/wo and CT CAP for further evaluation [JT] [address] Valenzuela to medicine [JT] ED Course User Index [JT] Abiola De La Cruz MD Assessment AND Plan: Patient presented as a transfer from OSH for NSGY consult for a newly diagnosed brain mass. On exam, patient has no focal neurologic deficits, though did occasionally laugh inappropriately and was somewhat flat. NSGY evaluated and does not recommend any acute intervention. They recommend medicine admission for MRI w/wo and CT CAP. Patient was admitted to medicine for additional imaging and workup of brain mass. They were hemodynamically stable and nontoxic appearing while under my care. -------- IMPRESSION AND DISPOSITION ------ Clinical Impression Diagnosis Comment Frontal mass of brain [G93.89] Disposition: Admitted to Floor: Night Float Team 5. Report called to Dr. Valenzuela, medicine, 031 (09/14/24 0320) The patient has received a medical screening examination and within reasonable clinical confidence the patient was stabilized within the capabilities of the emergency department and requires admission / observation. Counseling: Spoke with the spouse and patient and discussed today's findings, in addition to providing specific details for the plan of care and expected course. They were given the opportunity to ask questions. Abiola De La Cruz MD Normal [facility] MR Brain WO and W contrast I Von 09-14-2024 EXAMINATION: MR HEAD W/+W/O 09/14/2024 11:03 AM CLINICAL HISTORY: Brain neoplasm (known or suspected) ASSOCIATED DIAGNOSIS: Brain neoplasm (known or suspected) ORDERING PROVIDER: GIO ZAMORA TE[employer]OLOGISTS NOTE: COMPARISON: CT NEURO IMAGE IMPORT(FRANNIE) 09/13/2024, 5:10 PM TECHNIQUE: Patient questionnaire was completed, and was reviewed by MRI personnel prior to the patient entering the scanner. Multiplanar, multisequence MR imaging of the head was performed with and without intravenous contrast. INTRA-PROCEDURE MEDS: Gadoterate Meglumine (DOTAREM) 10 MMOL/20ML solution 20 mL Route: Intravenous Push FINDINGS: TUMOR: Location: There is a 5.1 x 5.0 x 3.8 cm (AP x TV x CC) heterogenous enhancing mass in the frontal lobes crossing midline at the corpus callosum and demonstrates mild internal vascularity, blood product and prominent surrounding vasogenic edema. FLAIR/T2 hyperintensity extends in the bilateral frontal lobes with a small component which courses along the left internal capsule, basal ganglia and thalamus down to the left cerebral peduncle. There are additional enhancing foci which are contiguous with the T2/FLAIR signal measure up to 1.0 cm in bilateral frontal lobes (Series 12, Image 73) and a third enhancing lesion is seen in the left lateral cerebral peduncle (Series 12, Image 108). Enhancement: There is abnormal heterogenous enhancement on postcontrast imaging. Diffusion: Areas of abnormally decreased diffusion are seen, suggesting areas of hypercellular tumor. Other: A few areas of calcification and blood product. Mass effect on the anterior lateral ventricles, right greater than left. No herniation. ADDITIONAL FINDINGS: Remaining Brain Parenchyma: No acute infarct. Ventricles and Sulci: Normal. Skull Base: Craniocervical junction is normal. Expected marrow signal. Vasculature: Major intracranial vessels have normal flow voids suggesting patency. Extracranial structures: The paranasal sinuses and mastoid air cells are clear. The orbits and extracranial soft tissues demonstrate no significant abnormality. 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 Less likely differential diagnoses would include metastasis or lymphoma. MACRO: None I have personally reviewed the images and agree with the resident's interpretation. RADIOLOGY Chaz Unger MD - 09/14/2024 EXAMINATION: MR HEAD W/+W/O 09/14/2024 11:03 AM CLINICAL HISTORY: Brain neoplasm (known or suspected) ASSOCIATED DIAGNOSIS: Brain neoplasm (known or suspected) ORDERING PROVIDER: GIO ZAMORA TE[employer]ISTS NOTE: COMPARISON: CT NEURO IMAGE IMPORT(FRANNIE) 09/13/2024, 5:10 PM TECHNIQUE: Patient questionnaire was completed, and was reviewed by MRI personnel prior to the patient entering the scanner. Multiplanar, multisequence MR imaging of the head was performed with and without intravenous contrast. INTRA-PROCEDURE MEDS: Gadoterate Meglumine (DOTAREM) 10 MMOL/20ML solution 20 mL Route: Intravenous Push FINDINGS: TUMOR: Location: There is a 5.1 x 5.0 x 3.8 cm (AP x TV x CC) heterogenous enhancing mass in the frontal lobes crossing midline at the corpus callosum and demonstrates mild internal vascularity, blood product and prominent surrounding vasogenic edema. FLAIR/T2 hyperintensity extends in the bilateral frontal lobes with a small component which courses along the left internal capsule, basal ganglia and thalamus down to the left cerebral peduncle. There are additional enhancing foci which are contiguous with the T2/FLAIR signal measure up to 1.0 cm in bilateral frontal lobes (Series 12, Image 73) and a third enhancing lesion is seen in the left lateral cerebral peduncle (Series 12, Image 108). Enhancement: There is abnormal heterogenous enhancement on postcontrast imaging. Diffusion: Areas of abnormally decreased diffusion are seen, suggesting areas of hypercellular tumor. Other: A few areas of calcification and blood product. Mass effect on the anterior lateral ventricles, right greater than left. No herniation. ADDITIONAL FINDINGS: Remaining Brain Parenchyma: No acute infarct. Ventricles and Sulci: Normal. Skull Base: Craniocervical junction is normal. Expected marrow signal. Vasculature: Major intracranial vessels have normal flow voids suggesting patency. Extracranial structures: The paranasal sinuses and mastoid air cells are clear. The orbits and extracranial soft tissues demonstrate no significant abnormality. 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 Less likely differential diagnoses would include metastasis or lymphoma. MACRO: None I have personally reviewed the images and agree with the resident's interpretation. [facility] Radiology Study observation (narrative) [facility] MR Brain WO and W contrast I VOrdered By: Chaz Unger on 09-14-[address] [facility] Work Phone: MR HEAD W/+W/Oon 09-14-2024 MR HEAD W/+W/O EXAMINATION: MR HEAD W/+W/O 09/14/2024 11:03 AM CLINICAL HISTORY: Brain neoplasm (known or suspected) ASSOCIATED DIAGNOSIS: Brain neoplasm (known or suspected) ORDERING PROVIDER: GIO ZAMORA TECH[employer]ISTS NOTE: COMPARISON: CT NEURO IMAGE IMPORT(FRANNIE) 09/13/2024, 5:10 PM TECHNIQUE: Patient questionnaire was completed, and was reviewed by MRI personnel prior to the patient entering the scanner. Multiplanar, multisequence MR imaging of the head was performed with and without intravenous contrast. INTRA-PROCEDURE MEDS: Gadoterate Meglumine (DOTAREM) 10 MMOL/20ML solution 20 mL Route: Intravenous Push FINDINGS: TUMOR: Location: There is a 5.1 x 5.0 x 3.8 cm (AP x TV x CC) heterogenous enhancing mass in the frontal lobes crossing midline at the corpus callosum and demonstrates mild internal vascularity, blood product and prominent surrounding vasogenic edema. FLAIR/T2 hyperintensity extends in the bilateral frontal lobes with a small component which courses along the left internal capsule, basal ganglia and thalamus down to the left cerebral peduncle. There are additional enhancing foci which are contiguous with the T2/FLAIR signal measure up to 1.0 cm in bilateral frontal lobes (Series 12, Image 73) and a third enhancing lesion is seen in the left lateral cerebral peduncle (Series 12, Image 108). Enhancement: There is abnormal heterogenous enhancement on postcontrast imaging. Diffusion: Areas of abnormally decreased diffusion are seen, suggesting areas of hypercellular tumor. Other: A few areas of calcification and blood product. Mass effect on the anterior lateral ventricles, right greater than left. No herniation. ADDITIONAL FINDINGS: Remaining Brain Parenchyma: No acute infarct. Ventricles and Sulci: Normal. Skull Base: Craniocervical junction is normal. Expected marrow signal. Vasculature: Major intracranial vessels have normal flow voids suggesting patency. Extracranial structures: The paranasal sinuses and mastoid air cells are clear. The orbits and extracranial soft tissues demonstrate no significant abnormality. 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 Less likely differential diagnoses would include metastasis or lymphoma. MACRO: None I have personally reviewed the images and agree with the resident's interpretation. Normal [facility] Absolute neutrophil countOrd ered By: Hugo Paul on 09-13-2024 Neutrophils (Bld) [#/Vol] 14.2 10*3/uL High 2.0-7.7 [facility] Alcohol, Blood (Medical)-Ser umon 09-13-2024 SERUM ETOH < 3.0 Normal [facility] Comment on above: Result Comment: The serum:whole blood ethanol ratio is approximately 1.14and varies slightly with hematocrit.Medical Alcohol reference interval and critical value innon-tolerant individuals; 50 - 100 Impairment 100 Intoxication 100 - 250 Severe Poisoning 250 - 400 Deep/possible fatal coma Performed By: #### L 100.0100, L501.9100, L505.5000 ####[facility] [address] [place], [address] Basic Metabolic Profile (BMP )on 09-13-2024 BUN/CRE 22.5 RATIO High 10-20 [facility] Comment on above: Order Comment: 'TROP ' Serial specimen #1, #2 or #3: 1 Performed By: #### L 501.53527, L501.4020, L500.3400, L501.9520, L506.0400, L500.2500 ####[facility] [address] [place], [address] CA,Total 9.1 mg/dL Normal 8.5-10.1 [facility] Comment on above: Order Comment: 'TROP ' Serial specimen #1, #2 or #3: 1 Performed By: #### L 501.91023, L501.4020, L500.3400, L501.9520, L506.0400, L500.2500 ####[facility] [address] [place], [address] Chloride [Moles/Vol] 106 mmol/L Normal 98-107 [facility] Comment on above: Order Comment: 'TROP ' Serial specimen #1, #2 or #3: 1 Performed By: #### L 501.31710, L501.4020, L500.3400, L501.9520, L506.0400, L500.2500 ####[facility] [address] [place], [address] CO2 [Moles/Vol] 23.0 mmol/L Normal 21.0-32.0 [facility] Comment on above: Order Comment: 'TROP ' Serial specimen #1, #2 or #3: 1 Performed By: #### L 501.06230, L501.4020, L500.3400, L501.9520, L506.0400, L500.2500 ####[facility] [address] [place], [address] Creatinine [Mass/Vol] 1.02 mg/dL Normal 0.70-1.30 [facility] Comment on above: Order Comment: 'TROP ' Serial specimen #1, #2 or #3: 1 Result Comment: The validity of the calculated GFR GFRAA in patients over70 years has not been determined. Clinical correlation isessential. Performed By: #### L 501.73462, L501.4020, L500.3400, L501.9520, L506.0400, L500.2500 ####[facility] [address] [place], [address] ECRCL 109.99 ml/min Normal [facility] Comment on above: Order Comment: 'TROP ' Serial specimen #1, #2 or #3: 1 Performed By: #### L 501.30234, L501.4020, L500.3400, L501.9520, L506.0400, L500.2500 ####[facility] [address] [place], [address] EST GFR - AA 101 mL/min Normal >60 [facility] Comment on above: Order Comment: 'TROP ' Serial specimen #1, #2 or #3: 1 Performed By: #### L 501.01939, L501.4020, L500.3400, L501.9520, L506.0400, L500.2500 ####[facility] [address] [place], [address] GAP 10 Normal 5-15 [facility] Comment on above: Order Comment: 'TROP ' Serial specimen #1, #2 or #3: 1 Performed By: #### L 501.26065, L501.4020, L500.3400, L501.9520, L506.0400, L500.2500 ####[facility] [address] [place], [address] GFR/1.73 sq M.predicted among non-blacks MDRD (S/P/Bld) [Vol rate/Area] 83 mL/min/{1.73_m2} Normal >60 [place] Comment on above: Order Comment: 'TROP ' Serial specimen #1, #2 or #3: 1 Performed By: #### L 501.59669, L501.4020, L500.3400, L501.9520, L506.0400, L500.2500 ####[facility] [address] [place], [address] Glucose [Mass/Vol] 118 mg/dL High 74-106 [facility] Comment on above: Order Comment: 'TROP ' Serial specimen #1, #2 or #3: 1 Result Comment: Fast ing Glucose result from 100 to 125 mg/dLsuggests IMPAIRED HOMEOSTASIS per A.D.A. criteria. Performed By: #### L 501.25112, L501.4020, L500.3400, L501.9520, L506.0400, L500.2500 ####[facility] [address] [place], [address] Potassium [Moles/Vol] 5.3 mmol/L High 3.5-5.1 [facility] Comment on above: Order Comment: 'TROP ' Serial specimen #1, #2 or #3: 1 Result Comment: Mode rate Hemolysis, Result may be falsely increased. Performed By: #### L 501.98818, L501.4020, L500.3400, L501.9520, L506.0400, L500.2500 ####[facility] [address] [place], [address] Sodium [Moles/Vol] 139 mmol/L Normal 136-145 [facility] Comment on above: Order Comment: 'TROP ' Serial specimen #1, #2 or #3: 1 Performed By: #### L 501.36567, L501.4020, L500.3400, L501.9520, L506.0400, L500.2500 ####[facility] [address] [place], [address] Urea nitrogen [Mass/Vol] 23 mg/dL High 7-18 [facility] Comment on above: Order Comment: 'TROP ' Serial specimen #1, #2 or #3: 1 Performed By: #### L 501.86482, L501.4020, L500.3400, L501.9520, L506.0400, L500.2500 ####[facility] [address] [place], [address] Basophil percentageOrdered B y: Hugo Paul on 09-13-2024 Basophils/100 WBC (Bld) 0.4 % 0-1 [facility] Bilirubin, totalOrdered By: Hugo Paul on 09-13-2024 Bilirubin [Mass/Vol] 0.90 mg/dL 0.20-1.00 [facility] Comment on above: For patients on eltr ombopag therapy, use of Dimension [place] TBIL is not recommended. Bilirubin.direct [Mass/Vol]O rdered By: Hugo Paul on 09-13-2024 Direct Bilirubin < 0.05 mg/dL 0.00-0.30 [facility] Blood urea nitrogen (BUN)/cr eatinine ratioOrdered By: Hugo Paul on 09-13-2024 Urea nitrogen/Creatinine [Mass ratio] 22.5 mg/mg High 10-20 [facility] Brain/Head without Contrasto n 09-13-2024 Brain/Head without Contrast Normal [facility] CBC W/Diff, Automatedon 11- Absolute Lymph 1.83 X10 3/uL Normal 0.83-4.51 [facility] Comment on above: Performed By: #### L 100.0100, L501.9100, L505.5000 ####[facility] [address] [place], [address] Absolute Neut 14.2 X10 3/uL High 2.0-7.7 [facility] Comment on above: Performed By: #### L 100.0100, L501.9100, L505.5000 ####[facility] [address] [place], [address] Basophils/100 WBC (Bld) 0.4 % Normal 0-1 [facility] Comment on above: Performed By: #### L 100.0100, L501.9100, L505.5000 ####[facility] [address] [place], [address] Eosinophils/100 WBC (Bld) 0.1 % Normal 0-5 [facility] Comment on above: Performed By: #### L 100.0100, L501.9100, L505.5000 ####[facility] [address] [place], [address] Erythrocyte distribution width (RBC) [Ratio] 13.2 % Normal 11.6-14.6 [facility] Comment on above: Performed By: #### L 100.0100, L501.9100, L505.5000 ####[facility] [address] [place], [address] Hematocrit (Bld) [Volume fraction] 49.5 % Normal 40-54 [facility] Comment on above: Performed By: #### L 100.0100, L501.9100, L505.5000 ####[facility] [address] [place], [address] Hemoglobin (Bld) [Mass/Vol] 17.1 g/dL High 13.0-16.5 [facility] Comment on above: Performed By: #### L 100.0100, L501.9100, L505.5000 ####[facility] [address] [place], [address] IG% 0.500 Normal 0.0-0.9 [facility] Comment on above: Result Comment: IG% - Immature Granulocytes (promyelocytes, myelocytes andmetamyelocytes) > 1% indicates that a LEFT SHIFT is Present. Performed By: #### L 100.0100, L501.9100, L505.5000 ####[facility] [address] [place], [address] Lymphocytes/100 WBC (Bld) 10.4 % Low 19-41 [facility] Comment on above: Performed By: #### L 100.0100, L501.9100, L505.5000 ####[facility] [address] [place], [address] MCH (RBC) [Entitic mass] 32.9 pg High 27.0-32.0 [facility] Comment on above: Performed By: #### L 100.0100, L501.9100, L505.5000 ####[facility] [address] [place], [address] MCHC (RBC) [Mass/Vol] 34.5 g/dL Normal 32-36 [facility] Comment on above: Performed By: #### L 100.0100, L501.9100, L505.5000 ####[facility] [address] [place], [address] MCV (RBC) [Entitic vol] 95.2 fL High 80-94 [facility] Comment on above: Performed By: #### L 100.0100, L501.9100, L505.5000 ####[facility] [address] [place], [address] Monocytes/100 WBC (Bld) 7.5 % Normal 0-10 [facility] Comment on above: Performed By: #### L 100.0100, L501.9100, L505.5000 ####[facility] [address] [place], [address] Neutrophils/100 WBC (Bld) 81.1 % High 47-70 [facility] Comment on above: Performed By: #### L 100.0100, L501.9100, L505.5000 ####[facility] [address] [place], [address] Nucleated RBC (Bld) [#/Vol] 0 10*3/uL Normal 0-5 [facility] Comment on above: Performed By: #### L 100.0100, L501.9100, L505.5000 ####[facility] [address] [place], [address] Platelet mean volume (Bld) [Entitic vol] 10.7 fL Normal 6.2-12.0 [facility] Comment on above: Performed By: #### L 100.0100, L501.9100, L505.5000 ####[facility] [address] [place], [address] Platelets (Bld) [#/Vol] 250 10*3/uL Normal 150-450 [facility] Comment on above: Performed By: #### L 100.0100, L501.9100, L505.5000 ####[facility] [address] [place], [address] RBC (Bld) [#/Vol] 5.20 10*6/uL Normal 4.6-6.2 [facility] Comment on above: Performed By: #### L 100.0100, L501.9100, L505.5000 ####[facility] [address] [place], [address] RDW SD 46.5 fl High 35.1-43.9 [facility] Comment on above: Performed By: #### L 100.0100, L501.9100, L505.5000 ####[facility] [address] [place], [address] WBC (Bld) [#/Vol] 17.6 10*3/uL High 4.4-11.0 [facility] Comment on above: Performed By: #### L 100.0100, L501.9100, L505.5000 ####[facility] [address] [place], [address] Carbon dioxide measurementOr dered By: Hugo Paul on 09-13-2024 CO2 [Moles/Vol] 23.0 mmol/L 21.0-32.0 [facility] Chloride measurementOrdered By: Hugo Paul on 09-13-2024 Chloride [Moles/Vol] 106 mmol/L 98-107 [facility] Direct serum free thyroxine (FT4) measurementOrdered By: Hugo Paul on 09-13-2024 Free T4 [Mass/Vol] 1.42 ng/dL 0.76-1.46 [facility] Emergency Department Summary on 09-13-2024 Emergency Department Summary Normal [facility] Eosinophil percentageOrdered By: Hugo Paul on 09-13-2024 Eosinophils/100 WBC (Bld) 0.1 % 0-5 [facility] Erythrocyte distribution wid th ratioOrdered By: Hugo Paul on 09-13-2024 Erythrocyte distribution width (RBC) [Ratio] 13.2 % 11.6-14.6 [facility] Erythrocyte distribution wid th standard deviationOrdered By: Hugo Paul on 09-13-2024 Erythrocyte distribution width (RBC) [Entitic vol] 46.5 fL High 35.1-43.9 [facility] Estimated glomerular filtrat ion rate (GFR) AmericanOrdered By: Hugo Paul on 09-13-2024 Estimated GFR (MDRD) Amer 101 mL/min >60 [facility] Estimation of creatinine feliciano aranceOrdered By: Hugo Paul on 09-13-2024 Estimated Creatinine Clearance Calc 109.99 ml/min [facility] Free T3on 09-13-2024 Free T3 [Mass/Vol] 1.8 pg/mL Low 2.18-3.98 [facility] Comment on above: Order Comment: 'TROP ' Serial specimen #1, #2 or #3: 1 Performed By: #### L 501.79387, L501.4020, L500.3400, L501.9520, L506.0400, L500.2500 ####[facility] [address] [place], [place], [id number] Free [id number] By: Hugo morgan on 09-13-2024 Free Triiodothyronine (T3) pg/dL 1.8 pg/mL Low 2.18-3.98 [facility] Glomerular filtration rate ( GFR) estimationOrdered By: Hugo Paul on 09-13-2024 Estimated GFR (MDRD) Non-Af Amer 83 mL/min >60 [facility] Glucose measurementOrdered B y: Hugo Paul on 09-13-2024 Glucose [Mass/Vol] 118 mg/dL High 74-106 [facility] Comment on above: Fasting Glucose resu lt from 100 to 125 mg/dL suggests IMPAIRED HOMEOSTASIS per A.D.A. criteria. Hematocrit Auto (Bld) [Volum e fraction]Ordered By: Hugo Paul on 09-13-2024 Hematocrit (Bld) [Volume fraction] 49.5 % 40-54 [facility] Hemoglobin measurementOrdere d By: Hugo Paul on 09-13-2024 Hemoglobin (Bld) [Mass/Vol] 17.1 g/dL High 13.0-16.5 [facility] Immature granulocytes/100 WB C Auto (Bld)Ordered By: Hugo Paul on 09-13-2024 Immature granulocytes/100 WBC (Bld) 0.500 % 0.0-0.9 [facility] Comment on above: IG% - Immature Granu locytes (promyelocytes, myelocytes and metamyelocytes) > 1% indicates that a LEFT SHIFT is Present. L501.4020on 09-13-2024 TROPONIN-I HS 3 pg/mL Normal 3.0-78.0 [facility] Comment on above: Order Comment: 'TROP ' Serial specimen #1, #2 or #3: 1 Result Comment: Oracio duffy Note: New Test Units and Gender Specific Reference Ranges. For more information see Policy Stat Procedure [place] High Sensitivity Troponin (TNIH) and attachments. Performed By: #### L 501.72090, L501.4020, L500.3400, L501.9520, L506.0400, L500.2500 ####[facility] [address] [place], [place], [id number] Laboratory - Chemistry and C hemistry - challengeOrdered By: Hugo Paul on 09-13-2024 AST [Catalytic activity/Vol] 46 U/L High 15-37 [facility] Comment on above: Moderate Hemolysis, Result may be falsely increased. Liver Profileon 09-13-2024 Albumin [Mass/Vol] 3.7 g/dL Normal 3.2-5.0 [facility] Comment on above: Order Comment: 'TROP ' Serial specimen #1, #2 or #3: 1 Performed By: #### L 501.13509, L501.4020, L500.3400, L501.9520, L506.0400, L500.2500 ####[facility] [address] [place], [address] ALK P 72 U/L Normal 45-117 [facility] Comment on above: Order Comment: 'TROP ' Serial specimen #1, #2 or #3: 1 Performed By: #### L 501.18870, L501.4020, L500.3400, L501.9520, L506.0400, L500.2500 ####[facility] [address] [place], [address] ALT [Catalytic activity/Vol] 24 U/L Normal 16-61 [facility] Comment on above: Order Comment: 'TROP ' Serial specimen #1, #2 or #3: 1 Performed By: #### L 501.25504, L501.4020, L500.3400, L501.9520, L506.0400, L500.2500 ####[facility] [address] [place], [address] AST [Catalytic activity/Vol] 46 U/L High 15-37 [facility] Comment on above: Order Comment: 'TROP ' Serial specimen #1, #2 or #3: 1 Result Comment: Mode rate Hemolysis, Result may be falsely increased. Performed By: #### L 501.17770, L501.4020, L500.3400, L501.9520, L506.0400, L500.2500 ####[facility] [address] [place], [address] Bilirubin [Mass/Vol] 0.90 mg/dL Normal 0.20-1.00 [facility] Comment on above: Order Comment: 'TROP ' Serial specimen #1, #2 or #3: 1 Result Comment: For patients on eltrombopag therapy, use of Dimension [place] TBIL is not recommended. Performed By: #### L 501.81246, L501.4020, L500.3400, L501.9520, L506.0400, L500.2500 ####[facility] [address] [place], [address] D BILI < 0.05 Normal 0.00-0.30 [facility] Comment on above: Order Comment: 'TROP ' Serial specimen #1, #2 or #3: 1 Performed By: #### L 501.86819, L501.4020, L500.3400, L501.9520, L506.0400, L500.2500 ####[facility] [address] [place], [address] Globulin (S) [Mass/Vol] 4.1 g/dL Normal 2.2-4.2 [facility] Comment on above: Order Comment: 'TROP ' Serial specimen #1, #2 or #3: 1 Performed By: #### L 501.25973, L501.4020, L500.3400, L501.9520, L506.0400, L500.2500 ####[facility] [address] [place], [address] T PROT 7.8 g/dL Normal 6.4-8.2 [facility] Comment on above: Order Comment: 'TROP ' Serial specimen #1, #2 or #3: 1 Performed By: #### L 501.05432, L501.4020, L500.3400, L501.9520, L506.0400, L500.2500 ####[facility] [address] [place], [address] Lymphocytes Auto (Unsp spec) [#/Vol]Ordered By: Hugo Paul on 09-13-2024 Lymphocytes (Bld) [#/Vol] 1.83 10*3/uL 0.83-4.5 1 [facility] Lymphocytes/100 WBC Auto (Un sp spec)Ordered By: Hugo Paul on 09-13-2024 Lymphocytes/100 WBC (Bld) 10.4 % Low 19-41 [facility] MCV (mean corpuscular volume ) determinationOrdered By: Hugo Paul on 09-13-2024 MCV (RBC) [Entitic vol] 95.2 fL High 80-94 [facility] Mean corpuscular hemoglobin (MCH) determinationOrdered By: Hugo Paul on 09-13-2024 MCH (RBC) [Entitic mass] 32.9 pg High 27.0-32.0 [facility] Mean corpuscular hemoglobin concentration (MCHC) determinationOrdered By: Hugo Paul on 09-13-2024 MCHC (RBC) [Mass/Vol] 34.5 g/dL 32-36 [facility] Mean platelet volume determi nationOrdered By: Hugo Paul on 09-13-2024 Platelet mean volume (Bld) [Entitic vol] 10.7 fL 6.2-12.0 [facility] Methadone, urineOrdered By: Hugo Paul on 09-13-2024 Urine Methadone Screen Negative < 300 ng/mL [facility] Monocyte percentageOrdered B y: Hugo Paul on 09-13-2024 Monocytes/100 WBC (Bld) 7.5 % 0-10 [facility] Neutrophil percentageOrdered By: Hugo Paul on 09-13-2024 Neutrophils/100 WBC (Bld) 81.1 % High 47-70 [facility] No Panel InformationOrdered By: Hugo Paul on 09-13-2024 Urine Drug Screen Comment [facility] Comment on above: CONFIRMATORY TESTING FOR ALL POSITIVE URINE DRUG SCREENRESULTS WILL ONLY BE SENT OUT UPON PHYSICIAN ORDER. VISTA Urine Drug Screen methods provide only preliminaryanalytical test results. A more specific alternate chemicalmethod must be used in order to obtain a confirmedanalytical result. Gas chromatography/mass spectrometery(GC/MS) is the preferred confirmatory method. Clinicalconsideration and professional judgement should be appliedto any drug of abuse test result, particularly whenpreliminary positive results are used. URINE TCA TESTING MUST BE ORDERED SEPARATELY. USE TESTMNEMONIC: [facility] Nucleated red blood cell per centageOrdered By: Hugo Paul on 09-13-2024 Nucleated RBC/100 WBC (Bld) [Ratio] 0 % 0-5 [facility] Platelet countOrdered By: Maged Paul on 09-13-2024 Platelets (Bld) [#/Vol] 250 10*3/uL 150-450 [facility] Potassium measurementOrdered By: Hugo Paul on 09-13-2024 Potassium [Moles/Vol] 5.3 mmol/L High 3.5-5.1 [facility] Comment on above: Moderate Hemolysis, Result may be falsely increased. Quantitative urine opiates m easurementOrdered By: Hugo Paul on 09-13-2024 Opiates Ql (U) Negative < 300 ng/mL [facility] RBC Auto (Bld) [#/Vol]Ordere d By: Hugo Paul on 09-13-2024 RBC (Bld) [#/Vol] 5.20 10*6/uL 4.6-6.2 [facility] Serum anion gap measurementO rdered By: Hugo Paul on 09-13-2024 Anion gap [Moles/Vol] 10 mmol/L 5-15 [facility] Serum ethanol measurementOrd ered By: Hugo Paul on 09-13-2024 Ethyl Alcohol Level < 3.0 mg/dL [facility] Comment on above: The serum:whole bloo d ethanol ratio is approximately 1.14and varies slightly with hematocrit. Medical Alcohol reference interval and critical value innon-tolerant individuals; 50 - 100 Impairment 100 Intoxication 100 - 250 Severe Poisoning 250 - 400 Deep/possible fatal coma Serum globulin measurementOr dered By: Hugo Paul on 09-13-2024 Globulin (S) [Mass/Vol] 4.1 g/dL 2.2-4.2 [facility] Serum or plasma alanine hale otransferase (ALT) measurementOrdered By: Hugo Paul on 09-13-2024 ALT [Catalytic activity/Vol] 24 U/L 16-61 [facility] Serum or plasma albumin marion urement (mass/volume)Ordered By: Hugo Paul on 09-13-2024 Albumin [Mass/Vol] 3.7 g/dL 3.2-5.0 [facility] Serum or plasma alkaline jessica sphatase measurementOrdered By: Hugo Paul on 09-13-2024 ALP [Catalytic activity/Vol] 72 U/L 45-117 [facility] Serum or plasma calcium marion urement (mass/volume)Ordered By: Hugo Paul on 09-13-2024 Calcium [Mass/Vol] 9.1 mg/dL 8.5-10.1 [facility] Serum or plasma creatinine m easurement (mass/volume)Ordered By: Hugo Paul on 09-13-2024 Creatinine [Mass/Vol] 1.02 mg/dL 0.70-1.30 [facility] Comment on above: The validity of the calculated GFR & GFRAA in patients over 70 years has not been determined. Clinical correlation is essential. Serum or plasma urea nitroge n measurement (mass/volume)Ordered By: Hugo Paul on 09-13-2024 Urea nitrogen [Mass/Vol] 23 mg/dL High 7-18 [facility] Sodium levelOrdered By: Callie Paul on 09-13-2024 Sodium [Moles/Vol] 139 mmol/L 136-145 [facility] T4 Free Directon 09-13-2024 T4 FREE DIRECT 1.42 ng/dL Normal 0.76-1.46 [facility] Comment on above: Order Comment: 'TROP ' Serial specimen #1, #2 or #3: 1 Performed By: #### L 501.22582, L501.4020, L500.3400, L501.9520, L506.0400, L500.2500 ####[facility] [address] [place], [address] TSH QnOrdered By: Margo on 09-13-2024 Thyroid Stimulating Hormone (TSH) 0.338 uIU/mL Low 0.358-3.74 0 [facility] Thyroid Stim Hormone (TSH)on 09-13-2024 TSH 0.338 uIU/mL Low 0.358-3.74 0 [facility] Comment on above: Order Comment: 'TROP ' Serial specimen #1, #2 or #3: 1 Performed By: #### L 501.40622, L501.4020, L500.3400, L501.9520, L506.0400, L500.2500 ####[facility] [address] [place], [address] Total proteinOrdered By: Gayatri Paul on 09-13-2024 Protein [Mass/Vol] 7.8 g/dL 6.4-8.2 [facility] Troponin IOrdered By: Hugo Paul on 09-13-2024 Troponin I High Sensitivity 3 pg/mL 3.0-78.0 [facility] Comment on above: Please Note: New Sowmya t Units and Gender Specific Reference Ranges. For more information see Policy Stat Procedure [place] High Sensitivity Troponin (TNIH) and attachments. Urine Drug Screen (VISTA)on 09-13-2024 AMPHETAMINES Negative Normal <1000 ng/mL [facility] Comment on above: Performed By: #### L 100.0100, L501.9100, L505.5000 ####[facility] [address] [place], [address] BARBITIURATES Negative Normal < 200 ng/mL [facility] Comment on above: Performed By: #### L 100.0100, L501.9100, L505.5000 ####[facility] [address] [place], [address] BENZODIAZIPINE Negative Normal < 200 ng/mL [facility] Comment on above: Performed By: #### L 100.0100, L501.9100, L505.5000 ####[facility] [address] [place], [address] COCAINE Negative Normal < 300 ng/mL [facility] Comment on above: Performed By: #### L 100.0100, L501.9100, L505.5000 ####[facility] [address] [place], [address] ECSTACY Negative Normal < 500 ng/mL [facility] Comment on above: Performed By: #### L 100.0100, L501.9100, L505.5000 ####[facility] [address] [place], [address] METHADONE Negative Normal < 300 ng/mL [facility] Comment on above: Performed By: #### L 100.0100, L501.9100, L505.5000 ####[facility] [address] [place], [address] OPIATES Negative Normal < 300 ng/mL [facility] Comment on above: Performed By: #### L 100.0100, L501.9100, L505.5000 ####[facility] [address] [place], [address] PCP Negative Normal < 25 ng/mL [facility] Comment on above: Performed By: #### L 100.0100, L501.9100, L505.5000 ####[facility] [address] [place], [address] THC Negative Normal < 50 ng/mL [facility] Comment on above: Performed By: #### L 100.0100, L501.9100, L505.5000 ####[facility] [address] [place], [address] VISTA UDS PH 5 Normal [facility] Comment on above: Performed By: #### L 100.0100, L501.9100, L505.5000 ####[facility] [address] [place], [address] Urine amphetamine measuremen tOrdered By: Hugo Paul on 09-13-2024 Amphetamines Ql (U) Negative <1000 ng/mL [facility] Urine barbiturates measureme ntOrdered By: Hugo Paul on 09-13-2024 Urine Barbiturates Screen Negative < 200 ng/mL [facility] Urine benzodiazepine levelOr dered By: Hugo Paul on 09-13-2024 Benzodiazepines Ql (U) Negative < 200 ng/mL [facility] Urine cocaine levelOrdered B y: Hugo Paul on 09-13-2024 Cocaine Ql (U) Negative < 300 ng/mL [facility] Urine ahlkn-3-yxuiglgqxtstkk abinol (THC) measurementOrdered By: Hugo Paul on 09-13-2024 Cannabinoids Screen Ql (U) Negative < 50 ng/m L [facility] Urine methylenedioxymethamph etamine (MDMA) measurementOrdered By: Hugo Paul on 09-13-2024 MDMA (Ecstasy) Screen Negative < 500 ng/mL [facility] Urine phencyclidine (PCP) de tectionOrdered By: Hugo Paul on 09-13-2024 Phencyclidine Ql (U) Negative < 25 ng/mL [facility] White blood cell (WBC) count Ordered By: Hugo Paul on 09-13-2024 WBC (Bld) [#/Vol] 17.6 10*3/uL High 4.4-11.0 [facility] Vital Signs Date Time Vital Sign Value Performing Clinician Facility 06-19-2025 10:04-0400 Body height 185.42 cm Vielka Ariana CAMPAIGN COORDINATOR-C Work Phone: [facility] 06-19-2025 10:04-0400 Body mass index (BMI) [Ratio] 34 kg/m2 Vielka Ariana CAMPAIGN COORDINATOR-C Work Phone: [facility] 06-19-2025 10:04-0400 Body temperature 97.5 [degF] Vielka Ariana CAMPAIGN COORDINATOR-C Work Phone: [facility] 06-19-2025 10:04-0400 Body weight 116.8 kg Vielka Ariana CAMPAIGN COORDINATOR-C Work Phone: [facility] 06-19-2025 10:04-0400 Diastolic blood pressure 86 mm[Hg] Vielka Ariana CAMPAIGN COORDINATOR-C Work Phone: [facility] 06-19-2025 10:04-0400 Heart rate 68 /min Vielka Ariana CAMPAIGN COORDINATOR-C Work Phone: [facility] 06-19-2025 10:04-0400 Respiratory rate 18 /min Vielka Ariana CAMPAIGN COORDINATOR-C Work Phone: [facility] 06-19-2025 10:04-0400 SaO2% (BldA) [Mass fraction] 96 % Vielka Ariana CAMPAIGN COORDINATOR-C Work Phone: [facility] 06-19-2025 10:04-0400 Systolic blood pressure 132 mm[Hg] Vielka Ariana CAMPAIGN COORDINATOR-C Work Phone: [facility] 06-05-2025 14:46-0400 Diastolic blood pressure 79 mm[Hg] Vielka Ariana CAMPAIGN COORDINATOR-C Work Phone: [facility] 06-05-2025 14:46-0400 Heart rate 67 /min Vielka Ariana CAMPAIGN COORDINATOR-C Work Phone: [facility] 06-05-2025 14:46-0400 Respiratory rate 16 /min Vielka Ariana CAMPAIGN COORDINATOR-C Work Phone: [facility] 06-05-2025 14:46-0400 SaO2% (BldA) [Mass fraction] 95 % Vielka Ariana CAMPAIGN COORDINATOR-C Work Phone: [facility] 06-05-2025 14:46-0400 Systolic blood pressure 127 mm[Hg] Vielka Ariana CAMPAIGN COORDINATOR-C Work Phone: [facility] 06-05-2025 10:14-0400 Body height 185.42 cm No Primary Care Physician [facility] 06-05-2025 10:13-0400 Body mass index (BMI) [Ratio] 34.2 kg/m2 No Primary Care Physician [facility] 06-05-2025 10:13040 Body temperature 97.8 [degF] No Primary Care Physician [facility] 06-05-2025 10:130400 Body weight 117.7 kg No Primary Care Physician [facility] 06-05-2025 10:13-0400 Diastolic blood pressure 83 mm[Hg] No Primary Care Physician [facility] 06-05-2025 10:13-0400 Heart rate 71 /min No Primary Care Physician [facility] 06-05-2025 10:13-0400 Respiratory rate 18 /min No Primary Care Physician [facility] 06-05-2025 10:13-0400 SaO2% (BldA) [Mass fraction] 95 % No Primary Care Physician [facility] 06-05-2025 10:13-0400 Systolic blood pressure 124 mm[Hg] No Primary Care Physician [facility] 05-22-2025 14:43-0400 Body temperature 97.5 [degF] No Primary Care Physician [facility] 05-22-2025 14:43-0400 Diastolic blood pressure 74 mm[Hg] No Primary Care Physician [facility] 05-22-2025 14:43-0400 Heart rate 61 /min No Primary Care Physician [facility] 05-22-2025 14:43-0400 Respiratory rate 16 /min No Primary Care Physician [facility] 05-22-2025 14:43-0400 SaO2% (BldA) [Mass fraction] 99 % No Primary Care Physician [facility] 05-22-2025 14:43-0400 Systolic blood pressure 117 mm[Hg] No Primary Care Physician [facility] 05-22-2025 09:10-0400 Body height 185.42 cm Vielka Ariana CAMPAIGN COORDINATOR-C Work Phone: [facility] 05-22-2025 09:10-0400 Body mass index (BMI) [Ratio] 33.9 kg/m2 Vielka Ariana CAMPAIGN COORDINATOR-C Work Phone: [facility] 05-22-2025 09:10-0400 Body temperature 98.2 [degF] Vielka Ariana CAMPAIGN COORDINATOR-C Work Phone: [facility] 05-22-2025 09:10-0400 Body weight 116.57 kg Vielka Ariana CAMPAIGN COORDINATOR-C Work Phone: [facility] 05-22-2025 09:10-0400 Diastolic blood pressure 81 mm[Hg] Vielka Ariana CAMPAIGN COORDINATOR-C Work Phone: [facility] 05-22-2025 09:10-0400 Heart rate 59 /min Vielka Ariana CAMPAIGN COORDINATOR-C Work Phone: [facility] 05-22-2025 09:10-0400 Respiratory rate 18 /min Vielka Ariana CAMPAIGN COORDINATOR-C Work Phone: [facility] 05-22-2025 09:10-0400 SaO2% (BldA) [Mass fraction] 97 % Vielka Ariana CAMPAIGN COORDINATOR-C Work Phone: [facility] 05-22-2025 09:10-0400 Systolic blood pressure 122 mm[Hg] Vielka Ariana CAMPAIGN COORDINATOR-C Work Phone: [facility] 05-08-2025 16:01-0400 Body temperature 96.7 [degF] No Primary Care Physician [facility] 05-08-2025 16:01-0400 Diastolic blood pressure 78 mm[Hg] No Primary Care Physician [facility] 05-08-2025 16:01-0400 Heart rate 61 /min No Primary Care Physician [facility] 05-08-2025 16:01-0400 Respiratory rate 16 /min No Primary Care Physician [facility] 05-08-2025 16:01-0400 SaO2% (BldA) [Mass fraction] 94 % No Primary Care Physician [facility] 05-08-2025 16:01-0400 Systolic blood pressure 131 mm[Hg] No Primary Care Physician [facility] 05-08-2025 09:16-0400 Body height 185.[address] Ez Lee MD Work Phone: [facility] 05-08-2025 09:16-0400 Body mass index (BMI) [Ratio] 34.4 kg/m2 Dr. Ez Lee MD Work Phone: [facility] 05-08-2025 09:16-0400 Body temperature 97.3 [degF] Dr. Ez Lee MD Work Phone: [facility] 05-08-2025 09:16-0400 Body weight 118.[address] Ez Lee MD Work Phone: 5(298)298-531406 [place] [address] 05-08-2025 09:16-0400 Diastolic blood pressure 81 mm[Hg] Dr. Ez Lee MD Work Phone: 2(558)755-427906 [place] [address] 05-08-2025 09:16-0400 Heart rate 94 /min Dr. Ez Lee MD Work Phone: 0(017)073-793906 [place] [address] 05-08-2025 09:16-0400 Respiratory rate 18 /min Dr. Ez Lee MD Work Phone: 8(903)978-265606 [place] [address] 05-08-2025 09:16-0400 SaO2% (BldA) [Mass fraction] 65 % Dr. Ez Lee MD Work Phone: 4(194)126-663006 [place] [address] 05-08-2025 09:16-0400 Systolic blood pressure 116 mm[Hg] Dr. Ez Lee MD Work Phone: 8(271)888-693806 [place] [address] 05-07-2025 11:38-0400 Body temperature 97.3 [degF] Dr. Ez Lee MD Work Phone: 8(367)961-426706 [place] [address] 05-07-2025 11:38-0400 Diastolic blood pressure 87 mm[Hg] Dr. Ez Lee MD Work Phone: 9(847)051-070706 [place] [address] 05-07-2025 11:38-0400 Heart rate 68 /min Dr. Ez Lee MD Work Phone: 3(930)997-259006 [place] [address] 05-07-2025 11:38-0400 Respiratory rate 16 /min Dr. Ez Lee MD Work Phone: 3(945)884-258606 [place] [address] 05-07-2025 11:38-0400 SaO2% (BldA) [Mass fraction] 95 % Dr. Ez Lee MD Work Phone: 9(901)394-186906 [place] [address] 05-07-2025 11:38-0400 Systolic blood pressure 137 mm[Hg] Dr. Ez Lee MD Work Phone: 1(292)218-271606 [place] [address] 05-07-2025 11:10-0400 Inhaled oxygen flow rate 3 L/min Dr. Ez Lee MD Work Phone: 9(492)729-236106 [place] [address] 05-07-2025 09:29-0400 Body height 185.[address] Ez Lee MD Work Phone: 1(384)982-289606 [place] [address] 05-07-2025 09:29-0400 Body mass index (BMI) [Ratio] 33 kg/m2 Dr. Ez Lee MD Work Phone: 9(483)239-135006 [place] [address] 05-07-2025 09:29-0400 Body weight 113.[address] Ez Lee MD Work Phone: 8(956)065-123206 [place] [address] 04-22-2025 09:22-0400 Body height 185.[address] Ez Lee MD Work Phone: 3(226)520-173906 [place] [address] 04-22-2025 09:22-0400 Body mass index (BMI) [Ratio] 33.3 kg/m2 Dr. Ez Lee MD Work Phone: 2(797)367-093006 [place] [address] 04-22-2025 09:22-0400 Body weight 114.[address] Ez Lee MD Work Phone: 5(454)421-655006 [place] [address] 04-22-2025 09:22-0400 Diastolic blood pressure 74 mm[Hg] Dr. Ez Lee MD Work Phone: 1(024)207-366706 [place] [address] 04-22-2025 09:22-0400 Heart rate 65 /min Dr. Ez Lee MD Work Phone: 9(966)357-918306 [place] [address] 04-22-2025 09:22-0400 Respiratory rate 16 /min Dr. Ez Lee MD Work Phone: 6(204)479-812906 [place] [address] 04-22-2025 09:22-0400 SaO2% (BldA) [Mass fraction] 97 % Dr. Ez Lee MD Work Phone: 4(649)314-969606 [place] [address] 04-22-2025 09:22-0400 Systolic blood pressure 120 mm[Hg] Dr. Ez Lee MD Work Phone: 6(502)501-717806 [place] [address] 04-17-2025 10:22-0400 Body height 185.[address] Ez Lee MD Work Phone: 6(962)820-458106 [place] [address] 04-17-2025 10:22-0400 Body mass index (BMI) [Ratio] 33 kg/m2 Dr. Ez Lee MD Work Phone: 2(930)457-117306 [place] [address] 04-17-2025 10:22-0400 Body weight 113.[address] Ez Lee MD Work Phone: 9(387)127-637906 [place] [address] 04-17-2025 10:22-0400 Respiratory rate 16 /min Dr. Ez Lee MD Work Phone: 9(983)165-780606 [place] [address] 04-15-2025 15:43-0400 Body height 185.[address] Ez Lee MD Work Phone: 6(776)655-793606 [place] [address] 04-15-2025 15:43-0400 Body mass index (BMI) [Ratio] 33.1 kg/m2 Dr. Ez Lee MD Work Phone: 7(458)003-740706 [place] [address] 04-15-2025 15:43-0400 Body temperature 97 [degF] Dr. Ez Lee MD Work Phone: 1(862)280-132606 [place] [address] 04-15-2025 15:43-0400 Body weight 113.[address] Ez Lee MD Work Phone: 5(430)777-150606 [place] [address] 04-15-2025 15:43-0400 Diastolic blood pressure 74 mm[Hg] Dr. Ez Lee MD Work Phone: 4(079)990-879906 [place] [address] 04-15-2025 15:43-0400 Heart rate 73 /min Dr. Ez Lee MD Work Phone: 3(967)284-763806 [place] [address] 04-15-2025 15:43-0400 Respiratory rate 18 /min Dr. Ez Lee MD Work Phone: 9(666)395-383006 [place] [address] 04-15-2025 15:43-0400 SaO2% (BldA) [Mass fraction] 94 % Dr. Ez Lee MD Work Phone: 5(727)811-170606 [place] [address] 04-15-2025 15:43-0400 Systolic blood pressure 111 mm[Hg] Dr. Ez Lee MD Work Phone: 1(067)029-156006 [place] [address] 04-01-2025 14:21-0400 Body height 185.[address] Ez Lee MD Work Phone: 9(893)980-990606 [place] [address] 04-01-2025 14:21-0400 Body mass index (BMI) [Ratio] 32.7 kg/m2 Dr. Ez Lee MD Work Phone: 0(834)070-914006 [place] [address] 04-01-2025 14:21-0400 Body temperature 98.2 [degF] Dr. Ez Lee MD Work Phone: 5(691)348-030106 [place] [address] 04-01-2025 14:21-0400 Body weight 112.[address] Ez Lee MD Work Phone: 9(637)[phone] [place] [address] 04-01-2025 14:21-0400 Diastolic blood pressure 80 mm[Hg] Dr. Ez Lee MD Work Phone: 6(039)135-842006 [place] [address] 04-01-2025 14:21-0400 Heart rate 85 /min Dr. Ez Lee MD Work Phone: 2(418)004-876206 [place] [address] 04-01-2025 14:21-0400 Respiratory rate 16 /min Dr. Ez Lee MD Work Phone: 7(681)[phone] [place] [address] 04-01-2025 14:21-0400 SaO2% (BldA) [Mass fraction] 96 % Dr. Ez Lee MD Work Phone: 0(654)856-643806 [place] [address] 04-01-2025 14:21-0400 Systolic blood pressure 118 mm[Hg] Dr. Ez Lee MD Work Phone: 0(113)235-100006 [place] [address] 03-18-2025 15:00-0400 Body height 185.[address] Ez Lee MD Work Phone: 4(305)783-570206 [place] [address] 03-18-2025 15:00-0400 Body mass index (BMI) [Ratio] 33.1 kg/m2 Dr. Ez Lee MD Work Phone: 0(119)406-703206 [place] [address] 03-18-2025 15:00-0400 Body temperature 97.3 [degF] Dr. Ez Lee MD Work Phone: 8(447)930-498306 [place] [address] 03-18-2025 15:00-0400 Body weight 113.[address] Ez Lee MD Work Phone: 9(723)812-129306 [place] [address] 03-18-2025 15:00-0400 Diastolic blood pressure 76 mm[Hg] Dr. Ez Lee MD Work Phone: 9(660)124-881506 [place] [address] 03-18-2025 15:00-0400 Heart rate 77 /min Dr. Ez Lee MD Work Phone: 3(131)718-624106 [place] [address] 03-18-2025 15:00-0400 Respiratory rate 16 /min Dr. Ez Lee MD Work Phone: 6(226)885-381206 [place] [address] 03-18-2025 15:00-0400 SaO2% (BldA) [Mass fraction] 93 % Dr. Ez Lee MD Work Phone: 7(297)359-996006 [place] [address] 03-18-2025 15:00-0400 Systolic blood pressure 124 mm[Hg] Dr. Ez Lee MD Work Phone: 4(647)593-098506 [place] [address] 03-04-2025 09:11-0400 Body height 185.[address] Ez Lee MD Work Phone: 5(182)298-325706 [place] [address] 03-04-2025 09:11-0400 Body mass index (BMI) [Ratio] 33.6 kg/m2 Dr. Ez Lee MD Work Phone: 8(529)635-510206 [place] [address] 03-04-2025 09:11-0400 Body temperature 97.4 [degF] Dr. Ez Lee MD Work Phone: 1(145)902-361906 [place] [address] 03-04-2025 09:11-0400 Body weight 115.[address] Ez Lee MD Work Phone: 0(904)822-976906 [place] [address] 03-04-2025 09:11-0400 Diastolic blood pressure 83 mm[Hg] Dr. Ez Lee MD Work Phone: 7(659)283-202806 [place] [address] 03-04-2025 09:11-0400 Heart rate 71 /min Dr. Ez Lee MD Work Phone: 9(391)095-371306 [place] [address] 03-04-2025 09:11-0400 Respiratory rate 18 /min Dr. Ez Lee MD Work Phone: 7(945)467-639306 [place] [address] 03-04-2025 09:11-0400 SaO2% (BldA) [Mass fraction] 96 % Dr. Ez Lee MD Work Phone: 1(454)972-613106 [place] [address] 03-04-2025 09:11-0400 Systolic blood pressure 129 mm[Hg] Dr. Ez Lee MD Work Phone: 7(394)539-504906 [place] [address] 02-25-2025 14:08-0400 Body height 185.[address] Ez Lee MD Work Phone: 9(363)850-371206 [place] [address] 02-25-2025 14:08-0400 Body mass index (BMI) [Ratio] 33 kg/m2 Dr. Ez Lee MD Work Phone: 4(981)217-806506 [place] [address] 02-25-2025 14:08-0400 Body temperature 97.4 [degF] Dr. Ez Lee MD Work Phone: 1(797)078-916506 [place] [address] 02-25-2025 14:08-0400 Body weight 113.[address] Ez Lee MD Work Phone: 6(662)107-611806 [place] [address] 02-25-2025 14:08-0400 Diastolic blood pressure 74 mm[Hg] Dr. Ez Lee MD Work Phone: 5(568)670-529306 [place] [address] 02-25-2025 14:08-0400 Heart rate 70 /min Dr. Ez Lee MD Work Phone: 9(637)089-107006 [place] [address] 02-25-2025 14:08-0400 Respiratory rate 18 /min Dr. Ez Lee MD Work Phone: 1(311)866-305406 [place] [address] 02-25-2025 14:08-0400 SaO2% (BldA) [Mass fraction] 94 % Dr. Ez Lee MD Work Phone: 9(854)646-105006 [place] [address] 02-25-2025 14:08-0400 Systolic blood pressure 116 mm[Hg] Dr. Ez Lee MD Work Phone: 0(836)058-212806 [place] [address] 02-18-2025 16:27-0400 Body height 185.[address] Ez Lee MD Work Phone: 0(416)045-525906 [place] [address] 02-18-2025 16:27-0400 Body mass index (BMI) [Ratio] 32.5 kg/m2 Dr. Ez Lee MD Work Phone: 3(964)251-575706 [place] [address] 02-18-2025 16:27-0400 Body temperature 98.2 [degF] Dr. Ez Lee MD Work Phone: 3(964)831-644206 [place] [address] 02-18-2025 16:27-0400 Body weight 112.[address] Ez Lee MD Work Phone: 1(268)511-623206 [place] [address] 02-18-2025 16:27-0400 Diastolic blood pressure 82 mm[Hg] Dr. Ez Lee MD Work Phone: 2(775)707-844106 [place] [address] 02-18-2025 16:27-0400 Heart rate 82 /min Dr. Ez Lee MD Work Phone: 4(309)721-801806 [place] [address] 02-18-2025 16:27-0400 Respiratory rate 18 /min Dr. Ez Lee MD Work Phone: 5(141)425-338706 [place] [address] 02-18-2025 16:27-0400 SaO2% (BldA) [Mass fraction] 92 % Dr. Ez Lee MD Work Phone: 1(416)384-101706 [place] [address] 02-18-2025 16:27-0400 Systolic blood pressure 127 mm[Hg] Dr. Ez Lee MD Work Phone: 3(684)126-550706 [place] [address] 02-12-2025 14:17-0400 Body mass index (BMI) [Ratio] 32.5 kg/m2 Dr. Ez Lee MD Work Phone: 8(501)650-358206 [place] [address] 02-12-2025 14:17-0400 Body temperature 98.9 [degF] Dr. Ez Lee MD Work Phone: 1(121)404-407206 [place] [address] 02-12-2025 14:17-0400 Body weight 112.[address] Ez Lee MD Work Phone: 0(065)065-284606 [place] [address] 02-12-2025 14:17-0400 Diastolic blood pressure 88 mm[Hg] Dr. Ez Lee MD Work Phone: 8(594)103-792606 [place] [address] 02-12-2025 14:17-0400 Heart rate 74 /min Dr. Ez Lee MD Work Phone: 6(089)574-740506 [place] [address] 02-12-2025 14:17-0400 Respiratory rate 18 /min Dr. Ez Lee MD Work Phone: 6(349)085-077206 [place] [address] 02-12-2025 14:17-0400 SaO2% (BldA) [Mass fraction] 94 % Dr. Ez Lee MD Work Phone: 3(660)542-020606 [place] [address] 02-12-2025 14:17-0400 Systolic blood pressure 120 mm[Hg] Dr. Ez Lee MD Work Phone: 3(170)531-892306 [place] [address] 02-04-2025 16:27-0400 Body mass index (BMI) [Ratio] 33.3 kg/m2 Dr. Ez Lee MD Work Phone: 2(629)807-440406 [place] [address] 02-04-2025 16:27-0400 Body temperature 97.7 [degF] Dr. Ez Lee MD Work Phone: 1(367)825-880406 [place] [address] 02-04-2025 16:27-0400 Body weight 114.[address] Ez Lee MD Work Phone: 0(276)196-488506 [place] [address] 02-04-2025 16:27-0400 Diastolic blood pressure 81 mm[Hg] Dr. Ez Lee MD Work Phone: 3(323)501-018606 [place] [address] 02-04-2025 16:27-0400 Heart rate 66 /min Dr. Ez Lee MD Work Phone: 1(934)183-732606 [place] [address] 02-04-2025 16:27-0400 Respiratory rate 18 /min Dr. Ez Lee MD Work Phone: 4(879)052-860506 [place] [address] 02-04-2025 16:27-0400 SaO2% (BldA) [Mass fraction] 95 % Dr. Ez Lee MD Work Phone: 7(492)621-344206 [place] [address] 02-04-2025 16:27-0400 Systolic blood pressure 121 mm[Hg] Dr. Ez Lee MD Work Phone: 9(703)152-657506 [place] [address] 01-24-2025 16:28-0400 Body height 185.[address] Ez Lee MD Work Phone: 2(637)346-138606 [place] [address] 01-24-2025 16:28-0400 Body mass index (BMI) [Ratio] 32.7 kg/m2 Dr. Ez Lee MD Work Phone: 3(534)314-140206 [place] [address] 01-24-2025 16:28-0400 Body temperature 98.2 [degF] Dr. Ez Lee MD Work Phone: 0(956)757-199306 [place] [address] 01-24-2025 16:28-0400 Body weight 112.[address] Ez Lee MD Work Phone: 3(958)800-602506 [place] [address] 01-24-2025 16:28-0400 Diastolic blood pressure 78 mm[Hg] Dr. Ez Lee MD Work Phone: 8(415)965-036706 [place] [address] 01-24-2025 16:28-0400 Heart rate 83 /min Dr. Ez Lee MD Work Phone: 3(703)661-747006 [place] [address] 01-24-2025 16:28-0400 Respiratory rate 18 /min Dr. Ez Lee MD Work Phone: 7(606)820-359806 [place] [address] 01-24-2025 16:28-0400 SaO2% (BldA) [Mass fraction] 94 % Dr. Ez Lee MD Work Phone: 8(873)208-978006 [place] [address] 01-24-2025 16:28-0400 Systolic blood pressure 115 mm[Hg] Dr. Ez Lee MD Work Phone: 7(146)266-059306 [place] [address] 01-17-2025 15:28-0400 Body temperature 98.4 [degF] Dr. Ez Lee MD Work Phone: 6(506)123-400206 [place] [address] 01-17-2025 15:28-0400 Diastolic blood pressure 90 mm[Hg] Dr. Ez Lee MD Work Phone: 4(567)262-775106 [place] [address] 01-17-2025 15:28-0400 Heart rate 87 /min Dr. Ez Lee MD Work Phone: 0(508)508-471206 [place] [address] 01-17-2025 15:28-0400 Respiratory rate 15 /min Dr. Ez Lee MD Work Phone: 9(777)007-926006 [place] [address] 01-17-2025 15:28-0400 SaO2% (BldA) [Mass fraction] 94 % Dr. Ez Lee MD Work Phone: 1(934)115-505606 [place] [address] 01-17-2025 15:28-0400 Systolic blood pressure 134 mm[Hg] Dr. Ez Lee MD Work Phone: 7(192)439-907206 [place] [address] 01-17-2025 11:20-0400 Body mass index (BMI) [Ratio] 31.8 kg/m2 Dr. Ez Lee MD Work Phone: 6(884)309-414706 [place] [address] 01-17-2025 11:20-0400 Body weight 109.[address] Ez Lee MD Work Phone: 4(480)198-514106 [place] [address] 01-17-2025 10:39-0400 Body height 185.[address] Ez Lee MD Work Phone: 1(745)914-157406 [place] [address] 01-10-2025 14:53-0400 Body height 185.[address] Ez Lee MD Work Phone: 8(700)169-877606 [place] [address] 01-10-2025 14:53-0400 Body mass index (BMI) [Ratio] 31.9 kg/m2 Dr. Ez Lee MD Work Phone: 0(349)450-807306 [place] [address] 01-10-2025 14:53-0400 Body temperature 98.2 [degF] Dr. Ez Lee MD Work Phone: 0(144)459-627906 [place] [address] 01-10-2025 14:53-0400 Body weight 109.[address] Ez Lee MD Work Phone: 8(500)073-481606 [place] [address] 01-10-2025 14:53-0400 Diastolic blood pressure 79 mm[Hg] Dr. Ez Lee MD Work Phone: 9(390)166-954506 [place] [address] 01-10-2025 14:53-0400 Heart rate 72 /min Dr. Ez Lee MD Work Phone: 5(287)520-922106 [place] [address] 01-10-2025 14:53-0400 Respiratory rate 18 /min Dr. Ez Lee MD Work Phone: 4(353)310-679806 [place] [address] 01-10-2025 14:53-0400 SaO2% (BldA) [Mass fraction] 96 % Dr. Ez Lee MD Work Phone: 0(396)332-557606 [place] [address] 01-10-2025 14:53-0400 Systolic blood pressure 119 mm[Hg] Dr. Ez Lee MD Work Phone: 4(362)684-748406 [place] [address] 01-10-2025 14:35-0400 Body mass index (BMI) [Ratio] 31.9 kg/m2 Dr. Ez Lee MD Work Phone: 7(201)245-547306 [place] [address] 01-10-2025 14:35-0400 Body temperature 98.2 [degF] Dr. Ez Lee MD Work Phone: 2(908)623-256706 [place] [address] 01-10-2025 14:35-0400 Body weight 109.[address] Ez Lee MD Work Phone: 7(778)977-290406 [place] [address] 01-10-2025 14:35-0400 Diastolic blood pressure 79 mm[Hg] Dr. Ez Lee MD Work Phone: 5(186)534-145406 [place] [address] 01-10-2025 14:35-0400 Heart rate 72 /min Dr. Ez Lee MD Work Phone: 2(858)558-214406 [place] [address] 01-10-2025 14:35-0400 Respiratory rate 18 /min Dr. Ez Lee MD Work Phone: 4(501)469-605406 [place] [address] 01-10-2025 14:35-0400 SaO2% (BldA) [Mass fraction] 96 % Dr. Ez Lee MD Work Phone: 8(952)617-210106 [place] [address] 01-10-2025 14:35-0400 Systolic blood pressure 119 mm[Hg] Dr. Ez Lee MD Work Phone: 5(790)395-104406 [place] [address] 12-10-2024 14:18-0500 Body height 185.[address] Ez Lee MD Work Phone: 1(812)930-608906 [place] [address] 12-10-2024 14:18-0500 Body mass index (BMI) [Ratio] 31.9 kg/m2 Dr. Ez Lee MD Work Phone: 3(030)274-346706 [place] [address] 12-10-2024 14:18-0500 Body temperature 97 [degF] Dr. Ez Lee MD Work Phone: 1(552)045-105306 [place] [address] 12-10-2024 14:18-0500 Body weight 109.[address] Ez Lee MD Work Phone: 1(212)896-184906 [place] [address] 12-10-2024 14:18-0500 Diastolic blood pressure 81 mm[Hg] Dr. Ez Lee MD Work Phone: 8(474)548-084306 [place] [address] 12-10-2024 14:18-0500 Heart rate 81 /min Dr. Ez Lee MD Work Phone: 5(641)148-542406 [place] [address] 12-10-2024 14:18-0500 Respiratory rate 18 /min Dr. Ez Lee MD Work Phone: 2(347)188-128206 [place] [address] 12-10-2024 14:18-0500 SaO2% (BldA) [Mass fraction] 95 % Dr. Ez Lee MD Work Phone: 5(940)415-156706 [place] [address] 12-10-2024 14:18-0500 Systolic blood pressure 121 mm[Hg] Dr. Ez Lee MD Work Phone: 5(600)656-621806 [place] [address] 12-06-2024 14:59-0500 Body mass index (BMI) [Ratio] 31.3 kg/m2 Dr. Ez Lee MD Work Phone: 9(117)511-796006 [place] [address] 12-06-2024 14:59-0500 Body temperature 97.5 [degF] Dr. Ez Lee MD Work Phone: 5(881)920-276506 [place] [address] 12-06-2024 14:59-0500 Body weight 107.[address] Ez Lee MD Work Phone: 0(322)232-455306 [place] [address] 12-06-2024 14:59-0500 Diastolic blood pressure 83 mm[Hg] Dr. Ez Lee MD Work Phone: 2(412)322-484706 [place] [address] 12-06-2024 14:59-0500 Heart rate 73 /min Dr. Ez Lee MD Work Phone: 5(205)065-432606 [place] [address] 12-06-2024 14:59-0500 Respiratory rate 18 /min Dr. Ez Lee MD Work Phone: 9(885)813-982306 [place] [address] 12-06-2024 14:59-0500 SaO2% (BldA) [Mass fraction] 96 % Dr. Ez Lee MD Work Phone: 2(206)227-355706 [place] [address] 12-06-2024 14:59-0500 Systolic blood pressure 129 mm[Hg] Dr. Ez Lee MD Work Phone: 9(251)392-314506 [place] [address] 12-03-2024 15:09-0500 Body temperature 97.6 [degF] Dr. Ez Lee MD Work Phone: 6(190)499-725706 [place] [address] 12-03-2024 15:09-0500 Diastolic blood pressure 77 mm[Hg] Dr. Ez Lee MD Work Phone: 5(619)900-193706 [place] [address] 12-03-2024 15:09-0500 Heart rate 96 /min Dr. Ez Lee MD Work Phone: 7(699)192-299206 [place] [address] 12-03-2024 15:09-0500 Respiratory rate 18 /min Dr. Ez Lee MD Work Phone: 8(106)630-764906 [place] [address] 12-03-2024 15:09-0500 SaO2% (BldA) [Mass fraction] 93 % Dr. Ez Lee MD Work Phone: 5(105)726-685406 [place] [address] 12-03-2024 15:09-0500 Systolic blood pressure 139 mm[Hg] Dr. Ez Lee MD Work Phone: 5(440)367-344706 [place] [address] 11-29-2024 15:04-0500 Body mass index (BMI) [Ratio] 31.1 kg/m2 Dr. Ez Lee MD Work Phone: 8(374)677-780206 [place] [address] 11-29-2024 15:04-0500 Body temperature 97.3 [degF] Dr. Ez Lee MD Work Phone: 4(118)330-843306 [place] [address] 11-29-2024 15:04-0500 Body weight 107.[address] Ez Lee MD Work Phone: 8(048)182-847306 [place] [address] 11-29-2024 15:04-0500 Diastolic blood pressure 75 mm[Hg] Dr. Ez Lee MD Work Phone: 9(812)772-865106 [place] [address] 11-29-2024 15:04-0500 Heart rate 81 /min Dr. Ez Lee MD Work Phone: 9(688)657-831706 [place] [address] 11-29-2024 15:04-0500 Respiratory rate 16 /min Dr. Ez Lee MD Work Phone: 1(775)696-163106 [place] [address] 11-29-2024 15:04-0500 SaO2% (BldA) [Mass fraction] 93 % Dr. Ez Lee MD Work Phone: 2(484)314-011906 [place] [address] 11-29-2024 15:04-0500 Systolic blood pressure 111 mm[Hg] Dr. Ez Lee MD Work Phone: 5(869)588-428606 [place] [address] 11-26-2024 15:36-0500 Body mass index (BMI) [Ratio] 30.9 kg/m2 Dr. Ez Lee MD Work Phone: 7(928)554-882606 [place] [address] 11-26-2024 15:36-0500 Body temperature 98.5 [degF] Dr. Ez Lee MD Work Phone: 8(038)999-151706 [place] [address] 11-26-2024 15:36-0500 Body weight 106.[address] Ez Lee MD Work Phone: 1(349)557-222706 [place] [address] 11-26-2024 15:36-0500 Diastolic blood pressure 73 mm[Hg] Dr. Ez Lee MD Work Phone: 7(216)390-316306 [place] [address] 11-26-2024 15:36-0500 Heart rate 74 /min Dr. Ez Lee MD Work Phone: 5(096)727-909606 [place] [address] 11-26-2024 15:36-0500 Respiratory rate 16 /min Dr. Ez Lee MD Work Phone: 2(984)469-586506 [place] [address] 11-26-2024 15:36-0500 SaO2% (BldA) [Mass fraction] 96 % Dr. Ez Lee MD Work Phone: 7(015)182-109606 [place] [address] 11-26-2024 15:36-0500 Systolic blood pressure 109 mm[Hg] Dr. Ez Lee MD Work Phone: 2(407)534-168406 [place] [address] 11-22-2024 14:54-0500 Body mass index (BMI) [Ratio] 30.5 kg/m2 Dr. Ez Lee MD Work Phone: 9(449)711-326606 [place] [address] 11-22-2024 14:54-0500 Body temperature 97.5 [degF] Dr. Ez Lee MD Work Phone: 1(061)546-871206 [place] [address] 11-22-2024 14:54-0500 Body weight 105.[address] Ez Lee MD Work Phone: 7(557)353-687406 [place] [address] 11-22-2024 14:54-0500 Diastolic blood pressure 75 mm[Hg] Dr. Ez Lee MD Work Phone: 8(191)861-183706 [place] [address] 11-22-2024 14:54-0500 Heart rate 80 /min Dr. Ez Lee MD Work Phone: 0(345)456-592406 [place] [address] 11-22-2024 14:54-0500 Respiratory rate 16 /min Dr. Ez Lee MD Work Phone: 2(754)440-358306 [place] [address] 11-22-2024 14:54-0500 SaO2% (BldA) [Mass fraction] 93 % Dr. Ez Lee MD Work Phone: 9(865)165-626306 [place] [address] 11-22-2024 14:54-0500 Systolic blood pressure 113 mm[Hg] Dr. Ez Lee MD Work Phone: 1(707)992-368906 [place] [address] 11-19-2024 15:26-0500 Body temperature 97 [degF] Dr. Ez Lee MD Work Phone: 6(623)180-483506 [place] [address] 11-19-2024 15:26-0500 Diastolic blood pressure 82 mm[Hg] Dr. Ez Lee MD Work Phone: 9(033)429-398806 [place] [address] 11-19-2024 15:26-0500 Heart rate 63 /min Dr. Ez Lee MD Work Phone: 5(761)458-375306 [place] [address] 11-19-2024 15:26-0500 Respiratory rate 18 /min Dr. Ez Lee MD Work Phone: 8(071)314-643206 [place] [address] 11-19-2024 15:26-0500 SaO2% (BldA) [Mass fraction] 94 % Dr. Ez Lee MD Work Phone: 7(479)452-544806 [place] [address] 11-19-2024 15:26-0500 Systolic blood pressure 119 mm[Hg] Dr. Ez Lee MD Work Phone: 1(983)426-468506 [place] [address] 11-15-2024 15:16-0500 Body mass index (BMI) [Ratio] 30.6 kg/m2 Dr. Ez Lee MD Work Phone: 0(661)974-463606 [place] [address] 11-15-2024 15:16-0500 Body temperature 97.5 [degF] Dr. Ez Lee MD Work Phone: 1(786)903-168206 [place] [address] 11-15-2024 15:16-0500 Body weight 105.[address] Ez Lee MD Work Phone: 6(029)409-330506 [place] [address] 11-15-2024 15:16-0500 Diastolic blood pressure 79 mm[Hg] Dr. Ez Lee MD Work Phone: 2(909)991-383006 [place] [address] 11-15-2024 15:16-0500 Heart rate 82 /min Dr. Ez Lee MD Work Phone: 8(220)906-380706 [place] [address] 11-15-2024 15:16-0500 Respiratory rate 18 /min Dr. Ez Lee MD Work Phone: 3(829)880-489306 [place] [address] 11-15-2024 15:16-0500 SaO2% (BldA) [Mass fraction] 93 % Dr. Ez Lee MD Work Phone: 5(929)477-031506 [place] [address] 11-15-2024 15:16-0500 Systolic blood pressure 122 mm[Hg] Dr. Ez Lee MD Work Phone: 0(745)308-500606 [place] [address] 11-12-2024 15:32-0500 Body mass index (BMI) [Ratio] 30.4 kg/m2 Dr. Ez Lee MD Work Phone: 0(905)882-437406 [place] [address] 11-12-2024 15:32-0500 Body temperature 97.9 [degF] Dr. Ez Lee MD Work Phone: 8(685)316-613706 [place] [address] 11-12-2024 15:32-0500 Body weight 104.[address] Ez Lee MD Work Phone: 5(392)217-112406 [place] [address] 11-12-2024 15:32-0500 Diastolic blood pressure 82 mm[Hg] Dr. Ez Lee MD Work Phone: 4(327)895-885306 [place] [address] 11-12-2024 15:32-0500 Heart rate 71 /min Dr. Ez Lee MD Work Phone: 3(968)246-994706 [place] [address] 11-12-2024 15:32-0500 Respiratory rate 18 /min Dr. Ez Lee MD Work Phone: 3(703)848-800506 [place] [address] 11-12-2024 15:32-0500 SaO2% (BldA) [Mass fraction] 94 % Dr. Ez Lee MD Work Phone: 3(215)282-354106 [place] [address] 11-12-2024 15:32-0500 Systolic blood pressure 141 mm[Hg] Dr. Ez Lee MD Work Phone: 7(085)590-872506 [place] [address] 11-08-2024 15:09-0500 Body mass index (BMI) [Ratio] 30.3 kg/m2 Dr. Ez Lee MD Work Phone: 4(818)506-969106 [place] [address] 11-08-2024 15:09-0500 Body temperature 97.5 [degF] Dr. Ez Lee MD Work Phone: 7(044)314-117506 [place] [address] 11-08-2024 15:09-0500 Body weight 104.[address] Ez Lee MD Work Phone: 5(122)725-169206 [place] [address] 11-08-2024 15:09-0500 Diastolic blood pressure 73 mm[Hg] Dr. Ez Lee MD Work Phone: 6(768)369-668206 [place] [address] 11-08-2024 15:09-0500 Heart rate 87 /min Dr. Ez Lee MD Work Phone: 4(752)472-142806 [place] [address] 11-08-2024 15:09-0500 Respiratory rate 16 /min Dr. Ez Lee MD Work Phone: 8(097)595-072706 [place] [address] 11-08-2024 15:09-0500 SaO2% (BldA) [Mass fraction] 95 % Dr. Ez Lee MD Work Phone: 5(395)769-846006 [place] [address] 11-08-2024 15:09-0500 Systolic blood pressure 109 mm[Hg] Dr. Ez Lee MD Work Phone: 5(321)507-831606 [place] [address] 11-05-2024 16:03-0500 Body mass index (BMI) [Ratio] 30.2 kg/m2 Dr. Ez Lee MD Work Phone: 5(173)610-876806 [place] [address] 11-05-2024 16:03-0500 Body temperature 97.9 [degF] Dr. Ez Lee MD Work Phone: 7(619)171-464606 [place] [address] 11-05-2024 16:03-0500 Body weight 104.[address] Ez Lee MD Work Phone: 4(754)698-361506 [place] [address] 11-05-2024 16:03-0500 Diastolic blood pressure 81 mm[Hg] Dr. Ez Lee MD Work Phone: 0(190)241-538806 [place] [address] 11-05-2024 16:03-0500 Heart rate 96 /min Dr. Ez Lee MD Work Phone: 8(650)053-086706 [place] [address] 11-05-2024 16:03-0500 Respiratory rate 18 /min Dr. Ez Lee MD Work Phone: 4(396)308-828106 [place] [address] 11-05-2024 16:03-0500 SaO2% (BldA) [Mass fraction] 94 % Dr. Ez Lee MD Work Phone: 8(659)796-200506 [place] [address] 11-05-2024 16:03-0500 Systolic blood pressure 119 mm[Hg] Dr. Ez Lee MD Work Phone: 8(440)011-392006 [place] [address] 11-01-2024 15:02-0500 Body mass index (BMI) [Ratio] 30.2 kg/m2 Dr. Ez Lee MD Work Phone: 5(428)860-207006 [place] [address] 11-01-2024 15:02-0500 Body temperature 97.5 [degF] Dr. Ez Lee MD Work Phone: 9(231)070-194706 [place] [address] 11-01-2024 15:02-0500 Body weight 104.[address] Ez Lee MD Work Phone: 4(882)105-603006 [place] [address] 11-01-2024 15:02-0500 Diastolic blood pressure 81 mm[Hg] Dr. Ez Lee MD Work Phone: 2(722)934-950806 [place] [address] 11-01-2024 15:02-0500 Heart rate 71 /min Dr. Ez Lee MD Work Phone: 6(309)436-733906 [place] [address] 11-01-2024 15:02-0500 Respiratory rate 18 /min Dr. Ez Lee MD Work Phone: 4(556)662-300606 [place] [address] 11-01-2024 15:02-0500 SaO2% (BldA) [Mass fraction] 95 % Dr. Ez Lee MD Work Phone: 9(965)467-789406 [place] [address] 11-01-2024 15:02-0500 Systolic blood pressure 117 mm[Hg] Dr. Ez Lee MD Work Phone: 7(783)939-977506 [place] [address] 10-29-2024 15:54-0500 Body mass index (BMI) [Ratio] 30.3 kg/m2 Dr. Ez Lee MD Work Phone: 4(594)511-464806 [place] [address] 10-29-2024 15:54-0500 Body temperature 97.3 [degF] Dr. Ez Lee MD Work Phone: 2(111)469-929306 [place] [address] 10-29-2024 15:54-0500 Body weight 104.[address] Ez Lee MD Work Phone: 0(497)398-534606 [place] [address] 10-29-2024 15:54-0500 Diastolic blood pressure 84 mm[Hg] Dr. Ez Lee MD Work Phone: 0(473)351-017306 [place] [address] 10-29-2024 15:54-0500 Heart rate 89 /min Dr. Ez Lee MD Work Phone: 3(450)415-979506 [place] [address] 10-29-2024 15:54-0500 Respiratory rate 16 /min Dr. Ez Lee MD Work Phone: 0(927)614-625706 [place] [address] 10-29-2024 15:54-0500 SaO2% (BldA) [Mass fraction] 94 % Dr. Ez Lee MD Work Phone: 6(148)625-294906 [place] [address] 10-29-2024 15:54-0500 Systolic blood pressure 122 mm[Hg] Dr. Ez Lee MD Work Phone: 9(043)107-368206 [place] [address] 10-23-2024 14:14-0500 Body temperature 97.4 [degF] Dr. Ez Lee MD Work Phone: 2(969)383-048306 [place] [address] 10-23-2024 14:14-0500 Diastolic blood pressure 81 mm[Hg] Dr. Ez Lee MD Work Phone: 4(948)080-915606 [place] [address] 10-23-2024 14:14-0500 Heart rate 67 /min Dr. Ez Lee MD Work Phone: 1(156)255-584106 [place] [address] 10-23-2024 14:14-0500 Respiratory rate 18 /min Dr. Ez Lee MD Work Phone: 0(955)297-739106 [place] [address] 10-23-2024 14:14-0500 SaO2% (BldA) [Mass fraction] 97 % Dr. Ez Lee MD Work Phone: 2(380)964-664506 [place] [address] 10-23-2024 14:14-0500 Systolic blood pressure 118 mm[Hg] Dr. Ez Lee MD Work Phone: 8(197)580-122306 [place] [address] 10-16-2024 13:24-0500 Body mass index (BMI) [Ratio] 30.7 kg/m2 Dr. Ez Lee MD Work Phone: 8(073)388-891506 [place] [address] 10-16-2024 13:24-0500 Body temperature 96.8 [degF] Dr. Ez Lee MD Work Phone: 6(246)783-316206 [place] [address] 10-16-2024 13:24-0500 Body weight 105.[address] Ez Lee MD Work Phone: 1(900)861-086806 [place] [address] 10-16-2024 13:24-0500 Diastolic blood pressure 75 mm[Hg] Dr. Ez Lee MD Work Phone: 6(908)417-991106 [place] [address] 10-16-2024 13:24-0500 Heart rate 84 /min Dr. Ez Lee MD Work Phone: 9(676)353-913206 [place] [address] 10-16-2024 13:24-0500 Respiratory rate 16 /min Dr. Ez Lee MD Work Phone: 4(200)135-544006 [place] [address] 10-16-2024 13:24-0500 SaO2% (BldA) [Mass fraction] 94 % Dr. Ez Lee MD Work Phone: 6(969)686-484606 [place] [address] 10-16-2024 13:24-0500 Systolic blood pressure 119 mm[Hg] Dr. Ez Lee MD Work Phone: 9(600)621-302106 [place] [address] 10-11-2024 15:28-0500 Body mass index (BMI) [Ratio] 30.7 kg/m2 Dr. Ez Lee MD Work Phone: [facility] 10-11-2024 15:28-0500 Body temperature 98.3 [degF] Dr. Ez Lee MD Work Phone: [facility] 10-11-2024 15:28-0500 Body weight 105.[address] Ez Lee MD Work Phone: [facility] 10-11-2024 15:28-0500 Diastolic blood pressure 73 mm[Hg] Dr. Ez Lee MD Work Phone: [facility] 10-11-2024 15:28-0500 Heart rate 94 /min Dr. Ez Lee MD Work Phone: [facility] 10-11-2024 15:28-0500 Respiratory rate 18 /min Dr. Ez Lee MD Work Phone: [facility] 10-11-2024 15:28-0500 SaO2% (BldA) [Mass fraction] 94 % Dr. Ez Lee MD Work Phone: [facility] 10-11-2024 15:28-0500 Systolic blood pressure 120 mm[Hg] Dr. Ez Lee MD Work Phone: [facility] 10-01-2024 11:13-0500 Diastolic blood pressure 78 mm[Hg] Kostas Dupree MD Work Phone: [facility] 10-01-2024 11:13-0500 Heart rate 69 /min Kostas Dupree MD Work Phone: [facility] 10-01-2024 11:13-0500 Respiratory rate 18 /min Kostas Dupree MD Work Phone: [facility] 10-01-2024 11:13-0500 SaO2% (BldA) [Mass fraction] 98 % Kostas Dupree MD Work Phone: [facility] 10-01-2024 11:13-0500 Systolic blood pressure 116 mm[Hg] [facility] 09-22-2024 16:00-0500 Body temperature 98.6 [degF] Kostas Dupree MD [facility] 09-22-2024 12:00-0500 Heart rate 67 /min Kostas Dupree MD [facility] 09-22-2024 12:00-0500 Respiratory rate 22 /min Kostas Dupree MD [facility] 09-22-2024 12:00-0500 SaO2% (BldA) [Mass fraction] 98 % Kostas Dupree MD [facility] 09-21-2024 16:00-0500 Diastolic blood pressure 72 mm[Hg] Kostas Dupree MD [facility] 09-21-2024 16:00-0500 Systolic blood pressure 120 mm[Hg] [facility] 09-21-2024 11:11-0500 Body mass index (BMI) [Ratio] 28.63 kg/m2 Kostas Dupree MD Work Phone[facility] 09-21-2024 11:11-0500 Body weight 98.43 kg Kostas Dupree MD [facility] 09-21-2024 06:50-0500 Body height 185.4 cm Kostas Dupree MD [facility] 09-17-2024 11:09-0500 Diastolic blood pressure 71 mm[Hg] Kostas Dupree MD [facility] 09-17-2024 11:09-0500 Heart rate 76 /min Kostas Dupree MD [facility] 09-17-2024 11:09-0500 Respiratory rate 18 /min Kostas Dupree MD Work Phone: [employer] 09-17-2024 11:09-0500 SaO2% (BldA) [Mass fraction] 97 % Kostas Dupree MD Work Phone: [employer] 09-17-2024 11:09-0500 Systolic blood pressure 132 mm[Hg] Kostas Dupree MD Work Phone: [employer] 09-15-2024 08:17-0500 Body temperature 98.1 [degF] Nikita Beltran DO Work Phone: [employer] 09-15-2024 08:17-0500 Diastolic blood pressure 87 mm[Hg] Nikita Beltran DO Work Phone: [employer] 09-15-2024 08:17-0500 Heart rate 65 /min Nikita Beltran DO Work Phone: [employer] 09-15-2024 08:17-0500 Respiratory rate 16 /min Nikita Beltran DO Work Phone: [employer] 09-15-2024 08:17-0500 SaO2% (BldA) [Mass fraction] 97 % Nikita Beltran DO Work Phone: [employer] 09-15-2024 08:17-0500 Systolic blood pressure 137 mm[Hg] Nikita Beltran DO Work Phone: [employer] 09-14-2024 04:19-0500 Body height 185.4 cm Nikita Beltran DO Work Phone: [employer] 09-14-2024 04:19-0500 Body mass index (BMI) [Ratio] 28.77 kg/m2 Nikita Longoriars DO Work Phone: [employer] 09-14-2024 04:19-0500 Body weight 98.93 kg Nikita Beltran DO Work Phone: [employer] Comment on above: standing scale weight 09-13-2024 22:49-0500 Body temperature 98 [degF] Dr. Ez Lee MD Work Phone: [facility] 09-13-2024 22:49-0500 Diastolic blood pressure 105 mm[Hg] Dr. Ez Lee MD Work Phone: [facility] 09-13-2024 22:49-0500 Heart rate 98 /min Dr. Ez Lee MD Work Phone: [facility] 09-13-2024 22:49-0500 Respiratory rate 26 /min Dr. Ez Lee MD Work Phone: [facility] 09-13-2024 22:49-0500 SaO2% (BldA) [Mass fraction] 99 % Dr. Ez Lee MD Work Phone: [facility] 09-13-2024 22:49-0500 Systolic blood pressure 158 mm[Hg] Dr. Ez Lee MD Work Phone: [facility] 09-13-2024 15:42-0500 Body mass index (BMI) [Ratio] 29.7 kg/m2 Dr. Ez Lee MD Work Phone: [facility] 09-13-2024 15:42-0500 Body weight 102.[address] Ez Lee MD Work Phone: [facility] Encounters Encounter Date Encounter Type Care Provider Facility Start: 07-08-2025 ambulatory No Primary Car e Physician Facility:[facility] Start: 07-08-2025 ambulatory No Primary Car e Physician Facility:[facility] Start: 06-19-2025 End: 06-19-[address] Geoff Dallas MD -[facility] Work Phone: Start: 06-19-2025 End: 06-19-2025 ambulatory Vielka Ariana CAMPAIGN COORDINATOR-C Work Phone: -[facility] Start: 06-19-[address] Geoff Dallas MD -[facility] Start: 06-05-2025 End: 06-05-2025 Patient encounter procedure [address] CAMPAIGN COORDINATOR-C -[facility] Work Phone: Start: 06-05-2025 End: 06-05-2025 ambulatory No Primary Care Physician -[facility] Start: 06-05-[address] Geoff Dallas MD -[facility] Start: 05-22-2025 End: 05-22-[address] Geoff Dallas MD -[facility] Work Phone: Start: 05-22-2025 End: 05-22-[address] CAMPAIGN COORDINATOR-C Work Phone: -[facility] Start: 05-22-[address] Geoff Dallas MD -[facility] Start: 05-08-2025 Non-patient / Non-visit Dr. Trevor Hair MD -[facility] Start: 05-08-2025 End: 05-08-2025 ambulatory No Primary Care Physician -Cardiovascular Services Start: 05-08-2025 End: 05-08-[address] Geoff Dallas MD -Cardiovascular Services Work Phone: Start: 05-08-2025 End: 05-08-[address] Geoff Dallas MD -[facility] Work Phone: Start: 05-08-2025 End: 05-08-[address] Ez Lee MD Work Phone: -[facility] Start: 05-08-[address] Geoff Dallas MD -[facility] Start: 05-07-2025 ambulatory Chavez Cifuentes lity:[facility] Start: 05-07-2025 Non-patient / Non-visit Dr. Chavez Mcfadden MD -[facility] Start: 05-07-2025 End: 05-07-2025 Admission to same day surgery center Dr. Chavez Mcfadden MD [facility] Start: 05-07-2025 End: 05-08-[address] Ez Lee MD Work Phone: -[facility] Start: 05-03-2025 ambulatory No Primary Car e Physician Facility:[facility] Start: 05-03-[address] Geoff Dallas MD -Occupational Therapy Work Phone: Start: 04-22-2025 End: 04-22-[address] Ez Lee MD Work Phone: -Pulmonary Services/Neurology Start: 04-22-2025 End: 04-22-2025 Patient encounter procedure Vielk[address] Lane CAMPAIGN COORDINATOR-C -Pulmonary Services/Neurology Work Phone: Start: 04-22-2025 End: 04-22-2025 Patient encounter procedure Vielka Ariana CAMPAIGN COORDINATOR-C -[facility] Work Phone: Start: 04-22-2025 End: 04-22-[address] Ez Lee MD Work Phone: -[facility] Start: 04-22-2025 End: 04-22-2025 ambulatory No Primary Care Physician Facility:[facility] Start: 04-17-2025 End: 04-17-[address] Chavez Mcfadden MD -[facility] Work Phone: Start: 04-17-2025 End: 04-17-[address] Ez Lee MD Work Phone: -[facility] Start: 04-15-2025 End: 04-15-[address] Geoff Dallas MD -[facility] Work Phone: Start: 04-15-2025 End: 04-15-[address] Ez Lee MD Work Phone: -[facility] Start: 04-15-[address] Geoff Dallas MD -[facility] Start: 04-12-[address] Geoff Dallas MD -Occupational Therapy Work Phone: Start: 04-08-2025 End: 04-08-[address] Ez Lee MD Work Phone: [facility] Start: 04-08-2025 End: 04-08-2025 Patient encounter procedure Vielka Lane CAMPAIGN COORDINATOR-C -[facility] Work Phone: Start: 04-08-2025 End: 04-08-2025 ambulatory No Primary Care Physician Facility:[facility] Start: 04-05-[address] Geoff Dallas MD -Occupational Therapy Work Phone: Start: 04-01-2025 End: 04-01-2025 Patient encounter procedure Vielka Lane CAMPAIGN COORDINATOR-C -[facility] Work Phone: Start: 04-01-2025 End: 04-01-[address] Ez Lee MD Work Phone: [facility] Work Phone: Start: 04-01-[address] Geoff Dallas MD -[facility] Start: 03-29-[address] Geoff Dallas MD -Physical Therapy Work Phone: Start: 03-22-[address] Geoff Dallas MD -Occupational Therapy Work Phone: Start: 03-20-2025 End: 03-20-[address] Ez Lee MD Work Phone: [facility] Work Phone: Start: 03-20-2025 End: 03-20-2025 Patient encounter procedure Vielka Lane CAMPAIGN COORDINATOR-C -Pulmonary Services/Neurology Work Phone: Start: 03-20-2025 End: 03-20-2025 ambulatory No Primary Care Physician Facility:[facility] Start: 03-18-2025 End: 03-18-[address] Enrique Vallejo MD -[facility] Work Phone: Start: 03-18-2025 End: 03-18-2025 ambulatory Enrique Vallejo Facility:[facility] Start: 03-18-[address] Geoff Dallas MD -[facility] Start: 03-14-[address] Geoff Dallas MD -Occupational Therapy Work Phone: Start: 03-04-2025 End: 03-04-[address] Geoff Dallas MD -[facility] Work Phone: Start: 03-04-2025 End: 03-04-[address] Ez Lee MD Work Phone: [facility] Work Phone: Start: 03-04-[address] Geoff Dallas MD -[facility] Start: 02-25-2025 Non-patient / Non-visit Dr. Trevor Hair MD -[facility] Start: 02-25-2025 End: 02-25-[address] Ez Lee MD Work Phone: [facility] Work Phone: Start: 02-25-2025 End: 02-25-[address] Geoff Dallas MD -Cardiovascular Services Work Phone: Start: 02-25-2025 End: 02-25-[address] Geoff Dallas MD -[facility] Work Phone: Start: 02-25-2025 End: 02-25-2025 ambulatory No Primary Care Physician Facility:[facility] Start: 02-25-2025 End: 02-25-2025 ambulatory No Primary Care Physician Facility:[facility] Start: 02-20-2025 End: 02-20-[address] Ez Lee MD Work Phone: [facility] Work Phone: Start: 02-20-2025 End: 02-20-2025 Patient encounter procedure Vielka Lane CAMPAIGN COORDINATOR-C -Pulmonary Services/Neurology Work Phone: Start: 02-20-2025 End: 02-20-2025 ambulatory No Primary Care Physician Facility:[facility] Start: 02-18-2025 End: 02-18-[address] Geoff Dallas MD -[facility] Work Phone: Start: 02-18-2025 End: 02-18-2025 ambulatory No Primary Care Physician Facility:[facility] Start: 02-18-[address] Geoff Dallas MD -[facility] Start: 02-13-2025 End: 02-13-[address] Stephen Davis DO -[facility] Work Phone: Start: 02-12-2025 End: 02-12-2025 Patient encounter procedure Dave Edmondson [facility] Work Phone: Start: 02-12-2025 End: 02-13-2025 ambulatory Stephen Davis Facility:[facility] Start: 02-12-2025 End: 02-12-2025 ambulatory No Primary Care Physician Facility:[facility] Start: 02-04-2025 End: 02-04-[address] Geoff Dallas MD -[facility] Work Phone: Start: 02-04-2025 End: 02-04-2025 ambulatory No Primary Care Physician Facility:[facility] Start: 01-24-2025 End: 01-24-[address] Geoff Dallas MD -[facility] Work Phone: Start: 01-24-2025 End: 01-24-2025 ambulatory No Primary Care Physician Facility:[facility] Start: 01-24-[address] Geoff Dallas MD -[facility] Start: 01-23-2025 End: 01-23-[address] Ez Lee MD Work Phone: [facility] Work Phone: Start: 01-23-2025 End: 01-23-2025 Patient encounter procedure Vielka Lane CAMPAIGN COORDINATOR-C -Pulmonary Services/Neurology Work Phone: Start: 01-23-2025 End: 01-23-2025 ambulatory No Primary Care Physician Facility:[facility] Start: 01-17-2025 End: 01-17-2025 Emergency department patient visit Dr. Ez Lee MD Work Phone: -Emergency Department Work Phone: Start: 01-10-2025 Non-patient / Non-visit Dr. Trevor Hair MD -[facility] Start: 01-10-2025 End: 01-10-[address] Ez Lee MD Work Phone: [facility] Work Phone: Start: 01-10-2025 End: 01-10-[address] Geoff Dallas MD -Cardiovascular Services Work Phone: Start: 01-10-2025 End: 01-10-[address] Stephen Davis DO -[facility] Work Phone: Start: 01-10-2025 End: 01-10-2025 ambulatory [facility] Facility:[facility] Start: 01-10-[address] Geoff Dallas MD -[facility] Start: 01-10-2025 End: 01-10-2025 ambulatory Geoff Dallas Facility:[facility] Start: 01-07-2025 End: 01-07-[address] Ez Lee MD Work Phone: [facility] Work Phone: Start: 01-07-2025 End: 01-07-[address] Stephen Davis DO -[facility] Work Phone: Start: 01-07-2025 End: 01-07-[facility] Start: 12-26-2024 End: 12-26-[address] Ez Lee MD Work Phone: [facility] Work Phone: Start: 12-26-2024 End: 12-26-2024 Patient encounter procedure Vielka Lane NP-[place] -Pulmonary Services/Neurology Work Phone: Start: 12-26-2024 End: 12-26-2024 ambulatory Ez Lee Facility:[facility] Start: 12-10-2024 End: 12-10-2024 Patient encounter procedure Vielka Lane NP-C -[facility] Work Phone: Start: 12-10-2024 End: 12-10-2024 [facility] Start: 12-10-[address] Geoff Dallas MD -[facility] Start: 12-06-2024 End: 12-06-[address] Stephen Davis [facility] Work Phone: Start: 12-06-2024 End: 12-06-2024 ambulatory Stephen Davis Facility:[facility] Start: 12-03-2024 End: 12-03-2024 Patient encounter procedure Vielka Ariana CAMPAIGN COORDINATOR-C -[facility] Work Phone: Start: 12-03-2024 End: 12-03-2024 ambulatory Vielka Ariana CAMPAIGN COORDINATOR Facility:[facility] Start: 11-29-2024 End: 11-29-[address] Stephen Davis DO [facility] Work Phone: Start: 11-29-2024 End: 11-29-2024 ambulatory Stephen Davis Facility:[facility] Start: 11-28-2024 End: 11-28-2024 Patient encounter procedure Vielka Ariana CAMPAIGN COORDINATOR-C -Pulmonary Services/Neurology Work Phone: Start: 11-28-2024 End: 11-28-2024 ambulatory Vielka Ariana CAMPAIGN COORDINATOR Facility:[facility] Start: 11-26-2024 End: 11-26-2024 Patient encounter procedure Vielka Ariana CAMPAIGN COORDINATOR-C -[facility] Work Phone: Start: 11-26-2024 End: 11-26-2024 ambulatory Vielka Ariana CAMPAIGN COORDINATOR Facility:[facility] Start: 11-22-2024 End: 11-22-[address] Stephen Davis [facility] Work Phone: Start: 11-22-2024 End: 11-22-2024 ambulatory Stephen Davis Facility:[facility] Start: 11-19-2024 End: 11-19-2024 Patient encounter procedure Vielka Ariana CAMPAIGN COORDINATOR-C -[facility] Work Phone: Start: 11-19-2024 End: 11-19-2024 ambulatory Vielka Ariana CAMPAIGN COORDINATOR Facility:[facility] Start: 11-15-2024 End: 11-15-[address] [facility] Work [facility]: Start: 11-15-2024 End: 11-15-2024 ambulatory Stephen Nisswa Facility:[facility] Start: 11-12-2024 End: 11-12-2024 Patient encounter procedure Vielka BAEZ -[facility] Work Phone: Start: 11-12-2024 End: 11-12-2024 ambulatory [facility] Facility:[facility] Start: 11-08-2024 End: 11-08-[address] [facility] Work [facility]: Start: 11-08-2024 End: 11-08-2024 ambulatory [facility] Facility:[facility] Start: 11-05-2024 End: 11-05-[address] Geoff Dallas MD -[facility] Work Phone: Start: 11-05-2024 End: 11-05-2024 ambulatory Geoff Dallas Facility:[facility] Start: 11-01-2024 End: 11-01-[address] [facility]: Start: 11-01-2024 End: 11-01-2024 ambulatory Stephen Ryan Facility:[facility] Start: 10-31-2024 End: 10-31-2024 Patient encounter procedure Vielka BAEZ -Pulmonary Services/Neurology Work Phone: Start: 10-31-2024 End: 10-31-2024 ambulatory [facility] Facility:[facility] Start: 10-29-2024 End: 10-29-2024 [facility] Start: 10-29-2024 End: 10-29-2024 ambulatory [facility] Facility:[facility] Start: 10-26-2024 ambulatory Stephen Nisswa Facility: [facility] Start: 10-26-2024 Non-patient / Non-visit Dr. Stephen Davis DO [facility] Start: 10-25-2024 ambulatory Stephen Nisswa Facility: [facility] Start: 10-25-2024 Non-patient / Non-visit Dr. Stephen Davis DO [facility] Start: 10-23-2024 End: 10-23-2024 Patient encounter procedure Vielka Ariana BAEZ -[facility] Work Phone: Start: 10-23-2024 End: 10-23-2024 ambulatory Ez [facility]iapedrito Facility:[facility] Start: 10-18-2024 ambulatory Stephen Nisswa Facility: [facility] Start: 10-18-2024 Non-patient / Non-visit Dr. Stephen Davis DO [facility] Start: 10-18-2024 End: 10-18-[address] Stephen Davis [facility] Work Phone: Start: 10-18-2024 End: 10-18-2024 ambulatory [facility] Facility:[facility] Start: 10-16-2024 End: 10-16-[address] Stephen Davis [facility] Work Phone: Start: 10-16-2024 End: 10-16-2024 ambulatory [facility] Facility:[facility] Start: 10-11-2024 End: 10-11-[address] Geoff Dallas MD -[facility] Work Phone: Start: 10-11-2024 End: 10-11-2024 ambulatory Geoff Dallas Facility:[facility] Start: 10-05-2024 Non-patient / Non-visit [facility] Work Phone: Start: 10-05-2024 ambulatory Ez Garciatoppenish Facilit y:[facility] Start: 10-03-2024 End: 10-03-2024 Letter encounter Kostas Dupree MD Work Phone: [facility] Neurosurgery Start: 10-01-2024 End: 10-02-2024 ambulatory UNKNOWN PROVIDER Facility:[facility] Start: 10-01-2024 End: 10-02-2024 Patient encounter procedure Kostas Dupree MD Work Phone: [facility] Neurosurgery Comment on above: GBM (glioblastoma mu ltiforme) (HCC) (Primary Dx) Start: 09-21-2024 End: 09-21-2024 Evaluation and management of inpatient Kostas Dupree MD Work Phone: [facility] Radiology CT Comment on above: Arrived Start: 09-21-2024 End: 09-22-2024 Evaluation and management of inpatient [facility] DUPREE [facility] Start: 09-21-2024 End: 09-22-2024 Evaluation and management of inpatient Kostas Dupree MD Work Phone: [facility] [address] Comment on above: Frontal mass of brai n (Primary Dx) Start: 09-17-2024 End: 09-17-2024 Office outpatient visit 25 minutes Kostas Dupree MD Work Phone: [facility] Neurosurgery Comment on above: Glioma (HCC) (Primar y Dx) Start: 09-17-2024 End: 09-17-2024 ambulatory UNKNOWN PROVIDER Facility:[facility] Start: 09-14-2024 End: 09-15-2024 Evaluation and management of inpatient LINDA VALENZUELA Facility:[facility] Start: 09-13-2024 End: 09-15-2024 Evaluation and management of inpatient Nikita Beltran Work Phone: [facility] [address] Comment on above: Frontal mass of brai n (Primary Dx); Other headache syndrome Start: 09-13-2024 End: 09-13-2024 Emergency department patient visit UNKNOWN PROVIDER Facility:[facility] Procedures Date Procedure Procedure Detail Performing Clinician Start: 06-19-2025 Estimated creatinine clearance Vielka Ariana CAMPAIGN COORDINATOR-C Work Phone: Start: 06-05-2025 Urnls dip stick/tabl et reagent auto microscopy Vielka Ariana CAMPAIGN COORDINATOR-C Work Phone: Start: 06-05-2025 Estimated creatinine clearance No Primary Care Physician Start: 05-22-2025 Urnls dip stick/tabl et reagent auto microscopy No Primary Care Physician Start: 05-22-2025 Estimated creatinine clearance Vielka Ariana CAMPAIGN COORDINATOR-C Work Phone: Start: 05-08-2025 Urnls dip stick/tabl et reagent auto microscopy No Primary Care Physician Start: 05-08-[address] Ez Lee MD Work Phone: Start: 05-07-2025 Plain chest X-ray Dr. Herminio Lee MD Work Phone: Start: 05-07-2025 Fluoroscopic guidance Valdo Lee MD Work Phone: Start: 05-07-2025 Implantation to cardiovascular system Dr. Ez Lee MD Work Phone: Start: 04-15-[address] Ez Lee MD Work Phone: Start: 04-08-2025 MRI of brain with contrast Dr. Ez Lee MD Work Phone: Start: 04-01-[address] Ez Lee MD Work Phone: Start: 03-18-[address] Ez Lee MD Work Phone: Start: 03-04-[address] Ez Lee MD Work Phone: Start: 02-18-[address] Ez Lee MD Work Phone: Start: 02-13-2025 MRI of brain with contrast Dr. Ez Lee MD Work Phone: Start: 02-12-2025 X-ray of chest, PA a nd lateral views Dr. Ez Lee MD Work Phone: Start: 01-17-2025 Urnls dip stick/tabl et reagent auto microscopy Dr. Ez Lee MD Work Phone: Start: 01-17-2025 Computed tomography of abdomen and pelvis with intravenous contrast Dr. Ez Lee MD Work Phone: Start: 01-17-[address] Ez Lee MD Work Phone: Start: 01-07-2025 MRI of brain with contrast Dr. Ez Lee MD Work Phone: Start: 12-10-2024 Measurement of renal function Dr. Ez Lee MD Work Phone: Comment on above: GFR Calc Start: 10-18-2024 MRI of brain with contrast Dr. Ez Lee MD Work Phone: Start: 09-22-2024 Glucose blood reagent strip Kostas Dupree MD Work Phone: Start: 09-22-2024 Assay of magnesium Desire Yarbrough MD Work Phone: Start: 09-21-2024 Glucose blood reagent strip Kostas Dupree MD Work Phone: Start: 09-21-2024 Ct head/brain w/o co ntrast material Muriel Sands MD Work Phone: Start: 09-21-2024 Glucose blood reagent strip Kostas Dupree MD Work Phone: Start: 09-21-2024 Glucose blood reagent strip Kostas Dupree MD Work Phone: Start: 09-21-2024 Blood typing, ABO, R ho(D) and RBC antibody screening Carmelo Ware MD Work Phone: Start: 09-15-2024 Ct head/brain w/o co ntrast material Lisa Cadena PA-C Work Phone: Start: 09-15-2024 Blood typing, ABO, R ho(D) and RBC antibody screening Gio Zamora MD Work Phone: Start: 09-15-2024 Prothrombin time Gio Zamora MD Work Phone: Start: 09-14-2024 Ct thorax w/contrast material Gio Zamora MD Work Phone: Start: 09-14-2024 Mri brain brain stem w/o w/contrast material Gio Zamora MD Work Phone: Start: 09-14-2024 Basic metabolic pane l calcium total Linda Atakarini DO Work Phone: Start: 09-14-2024 Radiology Comparison study - date and time Abiola De La Cruz MD Work Phone: Start: 09-13-2024 CT of head without contrast Dr. Ez Lee MD Work Phone: Plan of Treatment Date Care Activity Detail Author Start: 06-19-2025 [facility] Start: 06-19-2025 Urinalysis complete panel - Urine [facility] Start: 06-05-2025 [facility] Start: 05-22-2025 [facility] Start: 05-22-2025 Urinalysis complete panel - Urine [facility] Start: 05-08-2025 [facility] Start: 05-08-2025 Venous catheter care management [facility] Start: 05-07-2025 Anesthesia access central venous circulation ANESTH VASCULAR ACCESS [facility] Start: 05-07-2025 Insj tunneled ctr va d w/subq port age 4 yr/> INSERT TUNNELED CV CATH [facility] Start: 05-07-2025 Patient discharge [facility] Start: 04-15-2025 [facility] Start: 04-01-2025 [facility] Start: 03-18-2025 [facility] Start: 03-04-2025 Patient referral [facility] Work Phone: Start: 03-04-2025 [facility] Start: 01-17-2025 [facility] Start: 01-10-2025 Patient referral [facility] Work Phone: Start: 01-07-2025 Venous catheter care management [facility] Start: 12-10-2024 Patient referral [facility] Work Phone: Start: 2024 Shingles (RZV) Vacci ne (1 of 2) Shingles (RZV) Vaccine (1 of 2) [facility] Start: 11-12-2024 Patient referral [facility] Work Phone: Start: 10-12-2024 Patient referral [facility] Work Phone: Start: 10-01-2024 End: 10-01-2024 Patient encounter procedure 10/01/2024 11:00 AM EST [facility] [address] [place] [id number] Kostas Dupree MD [address] [place] [address] [place] [address] [facility] Neurosurgery Start: 09-25-2024 End: 09-25-2024 Admission to same day surgery center 09/25/2024 8:30 AM EST - 09/25/2024 12:11 PM EST Surgery [facility] Main OR [address] [place] [id number] Kostas Dupree MD [address] [place] [address] [place] [address] BIOPSY, BRAIN WITH BRAIN LAB [facility] Comment on above: BIOPSY, BRAIN WITH B RAIN LAB Start: 09-25-2024 End: 09-25-2024 BIOPSY, BRAIN WITH BRAIN LAB BIOPSY, BRAIN WITH BRAIN LAB Routine scheduled Frontal mass of brain 09/25/2024 8:30 AM EST [facility] Start: 09-21-2024 End: 09-21-2024 Admission to same day surgery center 09/21/2024 7:50 AM EST - 09/21/2024 11:31 AM EST Surgery [facility] Main OR [address] [place] [id number] Kostas Dupree MD [address] [place] [address] [place] [address] BIOPSY, BRAIN WITH BRAIN LAB [facility] Main OR Comment on above: BIOPSY, BRAIN WITH B RAIN LAB Start: 09-21-2024 End: 09-21-2024 BIOPSY, BRAIN WITH BRAIN LAB BIOPSY, BRAIN WITH BRAIN LAB Routine scheduled Frontal mass of brain 09/21/2024 7:50 AM EST [facility] Start: 09-21-2024 Subsequent hospital visit by physician 09/21/2024 7:50 AM EST Hospital Encounter [facility] Main OR [address] [facility] [place] [address] Kostas Dupree MD [address] [facility] [place] [address] [facility] Main [place] Start: 09-13-[facility] Start: 09-13-2024 Suicide precautions [facility] Start: 06-17-2024 COVID-19 Vaccine ( season) COVID-19 Vaccine ( season) [facility] Start: 06-17-2024 Influenza vaccination Influenza Vacc ine (#1) [facility] Start: 2019 Screening for malign ant neoplasm of colon [facility] Start: 2009 Lipid panel Cholesterol [facility] Start: 1993 Hepatitis A (HAV) Vaccine (optional start 19+ years) Hepatitis A (HAV) Vaccine (optional start 19+ years) [facility] Start: 1993 Hepatitis B vaccination Hepati tis B (HBV) Vaccine (1 of 3 - 19+ 3-dose series) [facility] Start: 1992 Hepatitis C screening Hepatitis C An tibody [facility] Start: 1992 [facility] Start: 1989 HIV screening HIV Test [facility] Start: 1974 Screening for malign ant neoplasm of colon Colonoscopy [facility] Assay of magnesium MAGNESIUM Lab Routine Daily until discontinued starting 09/22/2024, [address] [facility] Comment on above: Daily until disconti nued starting 09/22/2024, 1 completed Basic metabolic 2000 panel - Serum or Plasma BASIC METABOLIC PANEL Lab Routine Daily until discontinued starting 09/22/2024, 1 completed [facility] Work Phone: Comment on above: Daily until disconti nued starting 09/22/2024, 1 completed Basic metabolic 2008 panel with ionized calcium - Serum or Plasma [facility] Bilirubin measuremen t, urine [facility] Bilirubin measuremen t, urine [facility] Bilirubin measuremen t, urine [facility] BIOPSY, BRAIN WITH B RAIN LAB BIOPSY, BRAIN WITH BRAIN LAB Routine scheduled Frontal mass of brain [facility] End: 09-15-2024 Blood typing serologic abo CONFIRMATION ABO/RH Lab Routine One time for 1 Occurrences starting 09/15/2024 until 09/15/2024 [facility] [email or web address] [facility] Work Phone: Comment on above: One time for 1 Occur rences starting 09/15/2024 until 09/15/2024 CBC panel - Blood by Automated count COMPLETE BLOOD COUNT Lab Routine Daily until discontinued starting 09/22/2024, 1 completed [facility] Comment on above: Daily until disconti nued starting 09/22/2024, 1 completed CBC W Auto Different ial panel - Blood [facility] CBC W Auto Different ial panel - Blood [facility] CBC W Auto Different ial panel - Blood [facility] CBC W Auto Different ial panel - Blood [facility] CBC W Auto Different ial panel - Blood [facility] CBC W Auto Different ial panel - Blood [facility] 1999 panel - Serum or Plasma [facility] 1999 panel - Serum or Plasma [facility] 1999 panel - Serum or Plasma [facility] 1999 panel - Serum or Plasma [facility] 1999 panel - Serum or Plasma [facility] 1999 panel - Serum or Plasma [facility] Hemoglobin [Presence ] in Urine [facility] Hemoglobin [Presence ] in Urine [facility] Hemoglobin [Presence ] in Urine [facility] Lactate dehydrogenas e measurement [facility] Lactate dehydrogenas e measurement [facility] Lactate dehydrogenas e measurement [facility] Measurement of keton es in urine using dipstick [facility] Measurement of k[place] es in urine using dipstick [facility] Measurement of keton es in urine using dipstick [facility] Microscopic urinalysis [facility] Microscopic urinalysis [facility] Microscopic urinalysis [facility] MR Brain WO and W contrast IV [facility] MR Brain WO and W contrast IV [facility] MR Brain WO and W contrast IV [facility] MR Brain WO and W contrast IV [facility] MR Brain WO and W contrast IV [facility] Patient Education ED Abdominal P ain Unkn Cause Male... [facility] Work Phone: Patient referral [facility] Work Phone: pH of Urine [facility] pH of Urine [facility] pH of Urine [facility] Prothrombin time PROTHROMBIN ALIYAH E AND INR Lab Routine Daily until discontinued starting 09/22/2024, 1 completed [facility] Comment on above: Daily until disconti nued starting 09/22/2024, 1 completed Specific gravity of Urine [facility] Specific gravity of Urine [facility] Specific gravity of Urine [facility] Surgical pathology procedure [facility] [email or web address] [facility] Work Phone: Comment on above: Release Upon Orderin g for 1 Occurrences starting 09/21/2024, 1 completed Thromboplastin time partial plasma/whole blood PARTIAL THROMBOPLASTIN TIME Lab Routine Daily until discontinued starting 09/22/2024, 1 completed [facility] Comment on above: Daily until disconti nued starting 09/22/2024, 1 completed Urine blood test [facility] Urine blood test [facility] Urine blood test [facility] Urine dipstick for glucose [facility] Urine dipstick for glucose [facility] Urine dipstick for glucose [facility] Urine dipstick for leukocyte esterase [facility] Urine dipstick for leukocyte esterase [facility] Urine dipstick for leukocyte esterase [facility] Urine dipstick for nitrite [facility] Urine dipstick for nitrite [facility] Urine dipstick for nitrite [facility] Urine dipstick for protein [facility] Urine dipstick for protein [facility] Urine dipstick for protein [facility] Urine examination [facility] Urine examination [facility] Urine examination [facility] Urine microscopy: epithelial cells [facility] Urine microscopy: epithelial cells [facility] Urine microscopy: epithelial cells [facility] Urine Microscopy: wh ite cells [facility] Urine Microscopy: wh ite cells [facility] Urine Microscopy: ite cells [facility] Urobilinogen [Presen ce] in Urine [facility] Urobilinogen [Presen ce] in Urine [facility] Urobilinogen [Presen ce] in Urine [facility] US.doppler Lower extremity vein [facility] Payers Date Payer Category Payer Self-pay 2024 [facility] RASHEED SANTOS EXCHANGE [id number] 2024 Unknown [id number] 1975 Unknown [id number] 2.840.1.934220.3.579.2 1974 Unknown [id number] 2.840.1.364824.3.579.2 1974 Unknown [id number] 2.840.1.526534.3.579.2 1974 Unknown [id number] 2.840.1.605117.3.579.2 1974 Unknown [id number] 2.840.1.283541.3.579.2 1974 Unknown [id number] 2.16840.1.764149.3.579.2 1974 Unknown [id number] 2.16840.1.794410.3.579.2 1974 Unknown [id number] 2.840.1.035561.3.579.2 1974 Unknown [id number] 2.840.1.849656.3.579.2 .732 Unknown [id number] Unknown [id number] Unknown [id number] 2.840.1.484344.3.579.2 .462 Unknown [id number] 2.840.1.109030.3.579.2 .462 Unknown [id number] .840.1.201788.3.579.2 .462 Unknown [id number] 2.840.1.050235.3.579.2 .462 Unknown [id number] 2.840.1.096711.3.579.2 .462 Unknown [id number] .840.1.133792.3.579.2 .462 Unknown [id number] 2.840.1.139962.3.579.2 .462 Unknown [id number] .840.1.877206.3.579.2 .462 Unknown [id number] .840.1.644755.3.579.2 .462 Unknown [id number] .840.1.877119.3.579.2 .462 Unknown [id number] .840.1.379619.3.579.2 .462 Unknown [id number] .840.1.115688.3.579.2 .462 Unknown [id number] .840.1.668789.3.579.2 .462 Unknown [id number] 2.840.1.680686.3.579.2 .462 Unknown [id number] 2.840.1.161178.3.579.2 .462 Unknown [id number] 2.840.1.964872.3.579.2 .462 Unknown [id number] 2.16.840.1.018095.3.579.2 .462 Unknown [id number] 2.16.840.1.001859.3.579.2 .462 Unknown [id number] 2.16.840.1.223235.3.579.2 .462 Unknown [id number] 2.16.840.1.408622.3.579.2 .462 Unknown [id number] 2.16.840.1.386715.3.579.2 .462 Unknown [id number] 2.16840.1.269448.3.579.2 .462 Unknown [id number] 2.16840.1.232730.3.579.2 .462 Unknown [id number] 2.840.1.179712.3.579.2 .462 Unknown [id number] 2.840.1.985840.3.579.2 .462 Unknown [id number] 2.840.1.130418.3.579.2 .462 Unknown [id number] 2.16840.1.935057.3.579.2 .462 Unknown [id number] 2.16.840.1.003918.3.579.2 .462 Unknown [id number] 2.840.1.846347.3.579.2 .462 Unknown [id number] 2.16.840.1.701634.3.579.2 .462 Unknown [id number] 2.16.840.1.954822.3.579.2 .462 Unknown [id number] 2.16.840.1.730212.3.579.2 .462 Unknown [id number] 2.16.840.1.516226.3.579.2 .462 Unknown [id number] 2.16.840.1.731627.3.579.2 .462 Unknown [id number] 2.16.840.1.939884.3.579.2 .462 Unknown [id number] 2.16.840.1.017153.3.579.2 .462 Unknown [id number] 2.16.840.1.734179.3.579.2 .462 Unknown [id number] 2.16.840.1.532565.3.579.2 .462 Unknown [id number] 2.16.840.1.165107.3.579.2 .462 Unknown [id number] 2.16.840.1.471058.3.579.2 .462 Unknown [id number] 2.840.1.255736.3.579.2 .462 Unknown [id number] 2.16.840.1.255333.3.579.2 .462 Unknown [id number] 2.840.1.280688.3.579.2 .462 Unknown [id number] 2..840.1.778247.3.579.2 .462 Unknown [id number] 2.16840.1.036820.3.579.2 .462 Unknown [id number] 2.16.840.1.566979.3.579.2 .462 Unknown [id number] 2.16840.1.412229.3.579.2 .462 Unknown [id number] 2.16.840.1.172994.3.579.2 .462 Unknown [id number] 2.16.840.1.383892.3.579.2 .462 Unknown [id number] 2.16.840.1.640214.3.579.2 .462 Unknown [id number] 2.16.840.1.447194.3.579.2 .462 Unknown [id number] 2.16.840.1.472524.3.579.2 .462 Unknown [id number] 2.16.840.1.116341.3.579.2 .462 Unknown [id number] 2.16.840.1.744038.3.579.2 .462 Unknown [id number] 2.16.840.1.378946.3.579.2 .462 Unknown [id number] 2.16.840.1.728155.3.579.2 .462 Unknown [id number] 2.16.840.1.209702.3.579.2 .462 Unknown [id number] 2.16.840.1.119759.3.579.2 .462 Unknown [id number] 2.16.840.1.806634.3.579.2 .462 Unknown [id number] 2.16.840.1.453314.3.579.2 .462 Unknown [id number] 2.16.840.1.133381.3.579.2 .462 Unknown [id number] 2.16.840.1.186417.3.579.2 .462 Unknown [id number] 2.16.840.1.403987.3.579.2 .462 Social History Date Type Detail Facility Start: 09-14-2024 End: 04-18-2025 Tobacco smoking status NDIS Never smoked tobacco [facility] Start: 09-14-2024 Tobacco use and exposure Smokeless tobacco non-user [facility] Start: 09-14-2024 End: 09-17-2024 History of Social function [facility] Start: 09-14-2024 End: 09-17-2024 Tobacco use panel [facility] (I/We) worried whether (my/our) food would run out before (I/we) got money to buy more. Never true [facility] Ran Out of Food in the Last Year Not on file [facility] Start: 1975 Sex assigned at Not on file [facility] Start: 09-13-2024 End: 01-29-2025 Sex Male (finding) [facility] Work Phone: Start: 1975 Sex Assigned At Male [facility] Medical Equipment Procedure Code Equipment Code Equipment Origin al Text Equipment Identifier Dates Insertion, vascular access port ([id number]) Vascular port/catheter ([id number] FDA Start: 05-07-2025 Goals Date Patient Goal Desired Activity /State Mental Status Date Assessment Result Facility 05-07-2025 Cognitive function Level Of Consciousness Sedated [facility] Work Phone: 05-07-2025 Cognitive function Voice/Name [facility] Work Phone: 09-13-2024 Cognitive function Level Of Cons ciousness Awake;Follows Commands;Drowsy [facility] Work Phone: Clinical Notes 09-14-2024 to 06-05-2025 Note Date & Type Note Facility 06-05-2025 Progress note [facility] 06-05-2025 Progress note Note Date/Time June 05, 2025 10:38am [facility] [address] [place], [place] [address] [address] OFFICE VISIT Date of Service: 06/05/25 1012 MR#: [id number] Acct: [id number] Name: LAMINE JOSEPH Rep #: [id number] : 1975 From: Vielka Bennett ch CAMPAIGN COORDINATOR CAMPAIGN COORDINATOR-C Age/Sex: 49/M Location: [facility] Status: Signed HPI Subjective Date of Service 06/05/25 Chief Complaint F/u for irinotecan/bevacizumab History of Present Illness 49 y.o.man presented with general weakness to [facility] ER. Brain CT on 09/13/2024 showed frontal lobe mass involving right and left cerebrum. He was transferred to [facility]. CT of the chest abdomen and pelvis on 09/14/2024 did not show any evidence of primary cancer. MRI of the brain on 09/14/2024 showed intraparenchymal mass crossing the midline at the corpus callosum involving bilateral frontal lobes and left basal ganglia/thalamus/cerebral peduncle consistent with multifocal glioblastoma measuring up to 5 cm. He underwent right frontal stereotactic brain biopsy on 09/21/2024. Pathology showed glioblastoma, IDH 1 wild-type. Tumor was considered unresectable so he was now referred for treatment with chemotherapy Temodar and radiation therapy. He developed weakness of his right upper extremity and right lower extremity. He is taking Decadron 2 mg daily. He started Radiation and Temodar 180mg PO daily on 10/29/24. Finished therapy on 12/07/2024. He started Temodar 300mg x 5 on 01/07/2025. 02/04/25: Cycle 2 Temodar 450 mg daily 1-5/28 day cycle. MRI brain on 02/13/2025 showed Multifocal Glioblastoma-stable disease. Got C4 Temodar on 04/01/2025. MRI on 04/08/2025 showed increasing sizes of brain masses. Progressive disease. Started Irinotecan and Avastin analogue on 05/08/2025. Interval History The patient is presenting to clinic accompanied by spouse for an evaluation anticipating he will begin cycle 3 irinotecan/bevacizumab. Reports nausea limited to the evening of d1. Does not require ondansetron. No emesis. Reports diarrhea on days 11 & 12. 1 episode/24 hr period. Did not require loperamide. Appetite fair, PO fluid intake described as adequate. BLE edema unchanged. Right sided weakness unchanged, no falls since last visit. Specifically denies fever/chills, sweats, vision changes, headache, CP, palpitations, cough, SOB, abd pain, any overt bleeding or abnormal bruising. [facility] Medical History Weakness of right arm Wears glasses Cancer Walker as ambulation aid Ambulates with cane Non-smoker History of edema DVT (deep venous thrombosis) Frequent falls Pneumonia Headache Long-term current use of steroids Encounter for education Need for pneumocystis prophylaxis Status post stereotactic brain biopsy Glioblastoma multiforme History of traumatic brain injury Family History Father Parkinson's disease Social History Smoking Status: Never smoker alcohol intake: current alcohol intake frequency: holidays/special occasions only substance use type: does not use ROS ROS Narrative Negative except as documented in the interval HPI Intake Vital Signs 05/08/25 09:16 05/22/25 09:10 06/05/25 10:13 06/05/25 10:14 Height 6 ft 1 in 6 ft 1 in 6 ft 1 in 6 ft 1 in Weight: 257 lb 259 lb 8 oz BMI 33.9 34.2 BP 122/81 H 124/83 H Blood Pressure Location Lt brachial Lt brachial Position Sitting Sitting Respiration 18 18 Pulse 59 L 71 Pulse Source Monitor Monitor Temp 98.2 F 97.8 F Temperature Source Temporal Artery Temporal Artery Pulse Oximetry (%) 97 95 Oxygen Delivery Method room air room air Intake Accompanied by: Is patient in pain?: No Allergies No Known Allergies Allergy (Verified 06/05/25 10:12) Medications ?Medication ?Instructions ?Recorded ?Confirmed ?Type acetaminophen 325 mg tablet 325 mg PO ONCE PRN pain 06/05/25 History (Tylenol) docusate sodium 100 mg capsule 100 mg PO QDAY PRN cons tipation 10/11/24 06/05/25 History ondansetron 4 mg disintegrating 4 mg PO Q8H PRN nausea and 10/23/24 06/05/25 Rx tablet vomiting #30 tabs apixaban 5 mg tablet (Eliquis) 5 mg PO BID #60 tabs 06/05/25 Rx sennosides 8.6 mg-docusate sodium 2 tab-cap (2 x 8.6-5 0 mg) PO QHS 01/29/25 06/05/25 Rx 50 mg capsule (Senna Plus) 30 days #60 caps dexamethasone 2 mg tablet 2 mg PO QDAY #30 tabs 06/05/25 Rx lidocaine-prilocaine 2.5 %-2.5 % 1 applic topical ONCE PRN port 04/22/25 06/05/25 Rx topical cream access 30 days #30 grams Laboratory Tests 06/05/25 09:30 WBC 5.8 Hgb 14.4 Hct 42.2 Plt Count 168 Absolute Neuts (auto) 3.7 Sodium 144 Potassium 4.0 Chloride 108 Carbon Dioxide 22.3 BUN 17 Creatinine 1.10 Glucose 86 Calcium 9.1 Total Bilirubin 0.17 AST 29 ALT 46 Alkaline Phosphatase 49 Albumin 3.4 L Exam Physical Exam Narrative PS 2. Const alert, oriented x3 and no apparent distress HEENT normocephalic, external ears normal and external nose normal Eyes no scleral icterus Neck supple Lymph Lymphatic: no lymphadenopathy noted Resp normal respiratory effort and clear to auscultation bilaterally Cardio regular rate, regular rhythm, S1 normal heart sound, S2 normal heart sound and no murmurs GI soft to palpation and non-tender Back/Spine thoracic and lumbar spine normal to inspection Extremity Extremity Narrative: +R lower extremity edema-improving. +L lower leg and foot swelling. Skin no rashes or lesions noted Neuro oriented x3 and CN's II-XII intact bilaterally Neuro Narrative: + weakness R side-power 3/5 upper extremity, 1/5 lower extremity.. 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 I69.851 Hemiparesis etiology: late effect of cerebrovascular disease Cerebrovascular disease type: other Hemiparesis laterality: right dominant side Acute deep vein thrombosis (DVT) of femoral vein of right lower extremity I82.411 DVT location: lower extremity Affected thrombotic vein of extremity: femoral Chronicity: acute Laterality: right Chemotherapy management, encounter for Z51.11 Encounter for monoclonal antibody treatment for malignancy Z51.12 Assessment and Plan Assessment and Plan (1) Glioblastoma multiforme: Status: Chronic Comment: Glioblastoma involving right and left frontal lobes, IDH wild-type, status post Stereotactic brain biopsy on 09/21/2024, inoperable, involving both right and left frontal lobes. He now has residual weakness on the right side. Radiation and Temodar 180mg on 10/29/2024- 12/09/24. Started Temodar 350mg daily x 5 on 01/07/2025. MRI 02/13/2025 reviewed, Slight increase in tumors, not significant for progressive disease. MRI on 04/08/2025 showed increasing sizes of brain masses. Progressive disease but may be months. On therapy with Avastin and Irinotecan. Plan: To proceed with C3 Irinotecan and Avastin Analogue. MRI brain WWO between cycles 3 & 4 (2) Hemiparesis: Status: Chronic Qualifiers: Hemiparesis etiology: late effect of cerebrovascular disease Cerebrovascular disease type: other Hemiparesis laterality: right dominant side Qualified Code(s): I69.851 - Hemiplegia and hemiparesis following other cerebrovascular disease affecting right dominant side Comment: R hemiparesis due to Glioblstoma, Plan: Cot[facility]ue OT/PT (3) DVT (deep venous thrombosis): Status: Chronic Qualifiers: DVT location: lower extremity Affected thrombotic vein of extremity: femoral Chronicity: acute Laterality: right Qualified Code(s): I82.411 - Acute embolism and thrombosis of right femoral vein Comment: Diagnosed on 01/10/2025, on Eliquis. Plan: To continue Eliquis 5mg bid. (4) Chemotherapy management, encounter for: Status: Acute Comment: Counts reviewed, OK for therapy. Plan: To proceed with C3 Irinotecan (5) Encounter for monoclonal antibody treatment for malignancy: Status: Acute Plan: To proceed with C3 Avastin analogue Orders: Orders Brain W/WO Contrast Today C71.9 - Malignant neoplasm of brain, unspecified Plan RTO 06/19/25 for ?c4 06/05/25 1038 <Electronically signed by Vielka BAEZ> Date _ Vielka BAEZ Cosigner Signature: Date (if applicable) CC: ~ [employer] Work Phone: 1(465) 546-893008-06-2025 [facility] [address] [place] [address] OFFICE VISIT Date of Service: 05/22/25908 MR#: [id number] Acct: [id number] Name: LAMINE JOSEPH Rep #: [id number] : 1975 From: Geoff Dallas MD Age/Sex: 49/M Location: [facility] [place] Status: Signed HPI Subjective Date of Service 05/22/25 Chief Complaint F/u for irinotecan/bevacizumab History of Present Illness 49 y.o.man presented with general weakness to [facility] ER. Brain CT on 09/13/2024 showed frontal lobe mass involving right and left cerebrum. He was transferred to [facility]. CT of the chest abdomen andpelvis on 09/14/2024 did not show any evidence of primary cancer. MRI of the brain on 09/14/2024 showed intraparenchymal mass crossing the midline at the corpus callosum involving bilateral frontal lobes and left basal ganglia/thalamus/cerebral peduncle consistent with multifocal glioblastoma measuring up to 5 cm. He underwent right frontal stereotactic brain biopsy on 09/21/2024. Pathology showedglioblastoma, IDH 1 wild-type. Tumor was considered unresectable so he was now referred for treatment with chemotherapy Temodar and radiation therapy. He developed weakness of his right upper extremity and right lower extremity. He is taking Decadron 2 mg daily. He started Radiation and Temodar 180mg PO daily on 10/29/24. Finished therapy on 12/07/2024. He started Temodar 300mg x 5 on 01/07/2025. 02/04/25: Cycle 2 Temodar 450 mg daily 1-5/28 day cycle. MRI brain on 02/13/2025 showed Multifocal Glioblastoma-stable disease. Got C4 Temodar on 04/01/2025. MRI on 04/08/2025 showed increasing sizes of brain masses. Progressive disease. Started Irinotecan and Avastin analogue on 05/08/2025. Comes for C2. Still has R sided weakness, hasdeveloped R lower leg and foot swelling. [facility] Medical History Weakness of right arm Wears glasses Cancer Walker as ambulation aid Ambulates with cane Non-smoker History of edema DVT (deep venous thrombosis) Frequent falls Pneumonia Headache Long-term current use of steroids Encounter for education Need for pneumocystis prophylaxis Status post stereotactic brain biopsy Glioblastoma multiforme History of traumatic brain injury Family History Father Parkinson's disease Social History Smoking Status: Never smoker alcohol intake: current alcohol intake frequency: holidays/special occasions only substance use type: does not use Intake Vital Signs 05/08/25 09:16 05/22/25 09:10 Height 6 ft 1 in 6 ft 1 in Weight: 116.573 kg BMI 33.9 BP 122/81 H Blood Pressure Location Lt brachial Position Sitting Respiration 18 Pulse 59 L Pulse Source Monitor Temp 98.2 F Temperature Source Temporal Artery Pulse Oximetry (%) 97 Oxygen Delivery Method room air Intake Accompanied by: Is patient in pain?: No Allergies No Known Allergies Allergy (Verified 05/22/25 09:16) Medications ?Medication ?Instructions ?Recorded ?Confirmed ?Type acetaminophen 325 mg tablet 325 mg PO ONCE PRN pain 05/22/25 History (Tylenol) docusate sodium 100 mg capsule 100 mg PO QDAY PRN cons tipation 10/11/24 05/22/25 History ondansetron 4 mg disintegrating 4 mg PO Q8H PRN nausea and 10/23/24 05/22/25 Rx tablet vomiting #30 tabs apixaban 5 mg tablet (Eliquis) 5 mg PO BID #60 tabs 05/22/25 Rx sennosides 8.6 mg-docusate sodium 2 tab-cap (2 x 8.6-5 0 mg) PO QHS 01/29/25 05/22/25 Rx 50 mg capsule (Senna Plus) 30 days #60 caps dexamethasone 2 mg tablet 2 mg PO QDAY #30 tabs 05/22/25 Rx lidocaine-prilocaine 2.5 %-2.5 % 1 applic topical ONCE PRN port 04/22/25 05/22/25 Rx topical cream access 30 days #30 grams Central Venous Access Central Venous Access: Yes Port/PICC: Port Exam Physical Exam Narrative PS 2. Const alert, oriented x3 and no apparent distress HEENT normocephalic, external ears normal and external nose normal Eyes no scleral icterus Neck supple Lymph Lymphatic: no lymphadenopathy noted Resp normal respiratory effort and clear to auscultation bilaterally Cardio regular rate, regular rhythm, S1 normal heart sound, S2 normal heart sound and no murmurs GI soft to palpation and non-tender Back/Spine thoracic and lumbar spine normal to inspection Extremity Extremity Narrative: +R lower extremity edema-improving. +L lower leg and foot swelling. Skin no rashes or lesions noted Neuro oriented x3 and CN's II-XII intact bilaterally Neuro Narrative: + weakness R side-power 3/5 upper extremity, 1/5 lower extremity.. 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 I69.851 Hemiparesis etiology: late effect of cerebrovascular disease Cerebrovascular disease type: other Hemiparesis laterality: right dominant side Acute deep vein thrombosis (DVT) of femoral vein of right lower extremity I82.411 DVT location: lower extremity Affected thrombotic vein of extremity: femoral Chronicity: acute Laterality: right Chemotherapy management, encounter for Z51.11 Encounter for monoclonal antibody treatment for malignancy Z51.12 Assessment and Plan Assessment and Plan (1) Glioblastoma multiforme: Status: Chronic Comment: Glioblastoma involving right and left frontal lobes, IDH wild-type, status post Stereotactic brain biopsy on 09/21/2024, inoperable, involving both right and left frontal lobes. He now has residual weakness on the right side. Radiation and Temodar 180mg on 10/29/2024- 12/09/24. Started Temodar 350mg daily x 5 on 01/07/2025. MRI 02/13/2025 reviewed, Slight increase in tumors, not significant for progressive disease. MRI on 04/08/2025 showed increasing sizes of brain masses. Progressive disease but may be months. On therapy with Avastin and Irinotecan. Comes for C2. Counts and chemistry reviewed, OK for therapy. Plan: To proceed with C2 Irinotecan and Avastin Analogue. (2) Hemiparesis: Status: Chronic Qualifiers: Hemiparesis etiology: late effect of cerebrovascular disease Cerebrovascular disease type: other Hemiparesis laterality: right dominant side Qualified Code(s): I69.851 - Hemiplegia and hemiparesis following other cerebrovascular disease affecting right dominant side Comment: R hemiparesis due to Glioblstoma, Plan: Cotninue OT/PT (3) DVT (deep venous thrombosis): Status: Chronic Qualifiers: DVT location: lower extremity Affected thrombotic vein of extremity: femoral Chronicity: acute Laterality: right Qualified Code(s): I82.411 - Acute embolism and thrombosis of right femoral vein Comment: Diagnosed on 01/10/2025, on Eliquis. Plan: To continue Eliquis 5mg bid. (4) Chemotherapy management, encounter for: Status: Acute Comment: Counts reviewed, OK for therapy. Plan: To proceed with C2 Irinotecan (5) Encounter for monoclonal antibody treatment for malignancy: Status: Acute Plan: To proceed with C2 Avastin analogue Plan Plan Details Follow Up: 2 Weeks 05/22/25 0940 D> Date _ Geoff Dallas MD Cosigner Signature: Date (if applicable) CC: ~ [facility]08-06-2025 Progress note Author Geoff Dallas [facility] Note Date/Time May 22, 2025 9:4 0am [facility] [address] [place] [address]. [place] [address] OFFICE VISIT Date of Service: 05/22/2509 MR#: [id number] Acct: [id number] Name: LAMINE JOSEPH Rep #: [id number] : 1975 From: Geoff Dallas MD Age/Sex: 49/M Location: [facility] [place] Status: Signed HPI Subjective Date of Service 05/22/25 Chief Complaint F/u for irinotecan/bevacizumab History of Present Illness 49 y.o.man presented with general weakness to [facility] ER. Brain CT on 09/13/2024 showed frontal lobe mass involving right and left cerebrum. He was transferred to [facility]. CT of the chest abdomen and pelvis on 09/14/2024 did not show any evidence of primary cancer. MRI of the brain on 09/14/2024 showed intraparenchymal mass crossing the midline at the corpus callosum involving bilateral frontal lobes and left basal ganglia/thalamus/cerebral peduncle consistent with multifocal glioblastoma measuring up to 5 cm. He underwent right frontal stereotactic brain biopsy on 09/21/2024. Pathology showed glioblastoma, IDH 1 wild-type. Tumor was considered unresectable so he was now referred for treatment with chemotherapy Temodar and radiation therapy. He developed weakness of his right upper extremity and right lower extremity. He is taking Decadron 2 mg daily. He started Radiation and Temodar 180mg PO daily on 10/29/24. Finished therapy on 12/07/2024. He started Temodar 300mg x 5 on 01/07/2025. 02/04/25: Cycle 2 Temodar 450 mg daily 1-5/ day cycle. MRI brain on 02/13/2025 showed Multifocal Glioblastoma-stable disease. Got C4 Temodar on 04/01/2025. MRI on 04/08/2025 showed increasing sizes of brain masses. Progressive disease. Started Irinotecan and Avastin analogue on 05/08/2025. Comes for C2. Still has R sided weakness, has developed R lower leg and foot swelling. [facility] Medical History Weakness of right arm Wears glasses Cancer Walker as ambulation aid Ambulates with cane Non-smoker History of edema DVT (deep venous thrombosis) Frequent falls Pneumonia Headache Long-term current use of steroids Encounter for education Need for pneumocystis prophylaxis Status post stereotactic brain biopsy Glioblastoma multiforme History of traumatic brain injury Family History Father Parkinson's disease Social History Smoking Status: Never smoker alcohol intake: current alcohol intake frequency: holidays/special occasions only substance use type: does not use Intake Vital Signs 05/08/25 09:16 05/22/25 09:10 Height 6 ft 1 in 6 ft 1 in Weight: 116.573 kg BMI 33.9 BP 122/81 H Blood Pressure Location Lt brachial Position Sitting Respiration 18 Pulse 59 L Pulse Source Monitor Temp 98.2 F Temperature Source Temporal Artery Pulse Oximetry (%) 97 Oxygen Delivery Method room air Intake Accompanied by: Is patient in pain?: No Allergies No Known Allergies Allergy (Verified 05/22/25 09:16) Medications ?Medication ?Instructions ?Recorded ?Confirmed ?Type acetaminophen 325 mg tablet 325 mg PO ONCE PRN pain 05/22/25 History (Tylenol) docusate sodium 100 mg capsule 100 mg PO QDAY PRN cons tipation 10/11/24 05/22/25 History ondansetron 4 mg disintegrating 4 mg PO Q8H PRN nausea and 10/23/24 05/22/25 Rx tablet vomiting #30 tabs apixaban 5 mg tablet (Eliquis) 5 mg PO BID #60 tabs 05/22/25 Rx sennosides 8.6 mg-docusate sodium 2 tab-cap (2 x 8.6-5 0 mg) PO QHS 01/29/25 05/22/25 Rx 50 mg capsule (Senna Plus) 30 days #60 caps dexamethasone 2 mg tablet 2 mg PO QDAY #30 tabs 05/22/25 Rx lidocaine-prilocaine 2.5 %-2.5 % 1 applic topical ONCE PRN port 04/22/25 05/22/25 Rx topical cream access 30 days #30 grams Central Venous Access Central Venous Access: Yes Port/PICC: Port Exam Physical Exam Narrative PS 2. Const alert, oriented x3 and no apparent distress HEENT normocephalic, external ears normal and external nose normal Eyes no scleral icterus Neck supple Lymph Lymphatic: no lymphadenopathy noted Resp normal respiratory effort and clear to auscultation bilaterally Cardio regular rate, regular rhythm, S1 normal heart sound, S2 normal heart sound and no murmurs GI soft to palpation and non-tender Back/Spine thoracic and lumbar spine normal to inspection Extremity Extremity Narrative: +R lower extremity edema-improving. +L lower leg and foot swelling. Skin no rashes or lesions noted Neuro oriented x3 and CN's II-XII intact bilaterally Neuro Narrative: + weakness R side-power 3/5 upper extremity, 1/5 lower extremity.. 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 I69.851 Hemiparesis etiology: late effect of cerebrovascular disease Cerebrovascular disease type: other Hemiparesis laterality: right dominant side Acute deep vein thrombosis (DVT) of femoral vein of right lower extremity I82.411 DVT location: lower extremity Affected thrombotic vein of extremity: femoral Chronicity: acute Laterality: right Chemotherapy management, encounter for Z51.11 Encounter for monoclonal antibody treatment for malignancy Z51.12 Assessment and Plan Assessment and Plan (1) Glioblastoma multiforme: Status: Chronic Comment: Glioblastoma involving right and left frontal lobes, IDH wild-type, status post Stereotactic brain biopsy on 09/21/2024, inoperable, involving both right and left frontal lobes. He now has residual weakness on the right side. Radiation and Temodar 180mg on 10/29/2024- 12/09/24. Started Temodar 350mg daily x 5 on 01/07/2025. MRI 02/13/2025 reviewed, Slight increase in tumors, not significant for progressive disease. MRI on 04/08/2025 showed increasing sizes of brain masses. Progressive disease but may be months. On therapy with Avastin and Irinotecan. Comes for C2. Counts and chemistry reviewed, OK for therapy. Plan: To proceed with C2 Irinotecan and Avastin Analogue. 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 Plan: To continue Eliquis 5mg bid. (4) Chemotherapy management, encounter for: Status: Acute Comment: Counts reviewed, OK for therapy. Plan: To proceed with C2 Irinotecan (5) Encounter for monoclonal antibody treatment for malignancy: Status: Acute Plan: To proceed with C2 Avastin analogue Plan Plan Details Follow Up: 2 Weeks 05/22/25 0158 <Electronically signed by Geoff Lyle> Date _ Geoff Dallas MD Cosigner Signature: Date (if applicable) CC: ~ [facility] Work Phone: 1(466) 221-246407-23-2025 [facility] [address] [place] [address] OFFICE VISIT Date of Service: 05/08/25915 MR#: [id number] Acct: [id number] Name: LAMINE JOSEPH Rep #: [id number] : 1975 From: Geoff Dallas MD Age/Sex: 49/M Location: [facility] [place] Status: Signed HPI Subjective Date of Service 05/08/25 Chief Complaint F/u to start irinotecan/bevacizumab History of Present Illness 49 y.o.man presented with general weakness to [facility] ER. Brain CT on 09/13/2024 showed frontal lobe mass involving right and left cerebrum. He was transferred to [facility]. CT of the chest abdomen andpelvis on 09/14/2024 did not show any evidence of primary cancer. MRI of the brain on 09/14/2024 showed intraparenchymal mass crossing the midline at the corpus callosum involving bilateral frontal lobes and left basal ganglia/thalamus/cerebral peduncle consistent with multifocal glioblastoma measuring up to 5 cm. He underwent right frontal stereotactic brain biopsy on 09/21/2024. Pathology showedglioblastoma, IDH 1 wild-type. Tumor was considered unresectable so he was now referred for treatment with chemotherapy Temodar and radiation therapy. He developed weakness of his right upper extremity and right lower extremity. He is taking Decadron 2 mg daily. He started Radiation and Temodar 180mg PO daily on 10/29/24. Finished therapy on 12/07/2024. He started Temodar 300mg x 5 on 01/07/2025. 02/04/25: Cycle 2 Temodar 450 mg daily 1-03/13 day cycle. MRI brain on 02/13/2025 showed Multifocal Glioblastoma-stable disease. Got C4 Temodar on 04/01/2025. MRI on 04/08/2025 showed increasing sizes of brain masses. Progressive disease. Comes to start therapy with Irinotecan and Avastin analogue. Still has R sided weakness, has developed R lower leg and foot swelling. [facility] Medical History Weakness of right arm Wears glasses Cancer Walker as ambulation aid Ambulates with cane Non-smoker History of edema DVT (deep venous thrombosis) Frequent falls Pneumonia Headache Long-term current use of steroids Encounter for education Need for pneumocystis prophylaxis Status post stereotactic brain biopsy Glioblastoma multiforme History of traumatic brain injury Family History Father Parkinson's disease Social History Smoking Status: Never smoker alcohol intake: current alcohol intake frequency: holidays/special occasions only substance use type: does not use Intake Vital Signs 04/15/25 15:43 04/22/25 09:22 05/07/25 09:29 05/08/25 09:16 Height 6 ft 1 in 6 ft 1 in 6 ft 1 in 6 ft 1 in Weight: 118.614 kg BMI 34.4 BP 116/81 H Blood Pressure Location Lt brachial Position Sitting Respiration 18 Pulse 94 Pulse Source Monitor Temp 97.3 F L Temperature Source Temporal Artery Pulse Oximetry (%) 65 Oxygen Delivery Method room air Intake Accompanied by: Is patient in pain?: No Allergies No Known Allergies Allergy (Verified 05/08/25 09:22) Medications ?Medication ?Instructions ?Recorded ?Confirmed ?Type acetaminophen 325 mg tablet 325 mg PO ONCE PRN pain 05/08/25 History (Tylenol) docusate sodium 100 mg capsule 100 mg PO QDAY PRN cons tipation 10/11/24 05/08/25 History ondansetron 4 mg disintegrating 4 mg PO Q8H PRN nausea and 10/23/24 05/08/25 Rx tablet vomiting #30 tabs apixaban 5 mg tablet (Eliquis) 5 mg PO BID #60 tabs 05/08/25 Rx sennosides 8.6 mg-docusate sodium 2 tab-cap (2 x 8.6-5 0 mg) PO QHS 01/29/25 05/08/25 Rx 50 mg capsule (Senna Plus) 30 days #60 caps dexamethasone 2 mg tablet 2 mg PO QDAY #30 tabs 05/08/25 Rx lidocaine-prilocaine 2.5 %-2.5 % 1 applic topical ONCE PRN port 04/22/2504/17 Rx topical cream access 30 days #30 grams Central Venous Access Central Venous Access: Yes Port/PICC: Port Exam Physical Exam Narrative PS 2. Const alert, oriented x3 and no apparent distress HEENT normocephalic, external ears normal and external nose normal Eyes no scleral icterus Neck supple Lymph Lymphatic: no lymphadenopathy noted Resp normal respiratory effort and clear to auscultation bilaterally Cardio regular rate, regular rhythm, S1 normal heart sound, S2 normal heart sound and no murmurs GI soft to palpation and non-tender Back/Spine thoracic and lumbar spine normal to inspection Extremity Extremity Narrative: +R lower extremity edema-improving. +L lower leg and foot swelling. Skin no rashes or lesions noted Neuro oriented x3 and CN's II-XII intact bilaterally Neuro Narrative: + weakness R side-power 3/5 upper extremity, 1/5 lower extremity.. Psych mental status grossly normal Coding Level of Care Code Off vis,est,level 5 Exam Problem Focused Diagnoses Glioblastoma multiforme C71.9 Hemiparesis of right dominant side as late effect of other cerebrovascular disease I69.851 Hemiparesis etiology: late effect of cerebrovascular disease Cerebrovascular disease type: other Hemiparesis laterality: right dominant side Acute deep vein thrombosis (DVT) of femoral vein of right lower extremity I82.411 DVT location: lower extremity Affected thrombotic vein of extremity: femoral Chronicity: acute Laterality: right Chemotherapy management, encounter for Z51.11 Encounter for monoclonal antibody treatment for malignancy Z51.12 Swelling of left lower extremity M79.89 Assessment and Plan Assessment and Plan (1) Glioblastoma multiforme: Status: Chronic Comment: Glioblastoma involving right and left frontal lobes, IDH wild-type, status post Stereotactic brain biopsy on 09/21/2024, inoperable, involving both right and left frontal lobes. He now has residual weakness on the right side. Radiation and Temodar 180mg on 10/29/2024- 12/09/24. Started Temodar 350mg daily x 5 on 01/07/2025. MRI 02/13/2025 reviewed, Slight increase in tumors, not significant for progressive disease. MRI on 04/08/2025 showed increasing sizes of brain masses. Progressive disease but may be months. Comes to start therapy. Discussed further management, doing Avastin and Irinotecan. Pt want to proceed with Irinotecan and Avastin analogue. Counts reviewed, OK for therapy. Plan: To proceed with C1 Irinotecan and Avastin Analogue. (2) Hemiparesis: Status: Chronic Qualifiers: Hemiparesis etiology: late effect of cerebrovascular disease Cerebrovascular disease type: other Hemiparesis laterality: right dominant side Qualified Code(s): I69.851 - Hemiplegia and hemiparesis following other cerebrovascular disease affecting right dominant side Comment: R hemiparesis due to Glioblstoma, Plan: Cotninue OT/PT (3) DVT (deep venous thrombosis): Status: Chronic Qualifiers: DVT location: lower extremity Affected thrombotic vein of extremity: femoral Chronicity: acute Laterality: right Qualified Code(s): I82.411 - Acute embolism and thrombosis of right femoral vein Comment: Diagnosed on 01/10/2025, on Eliquis. Plan: To continue Eliquis 5mg bid. (4) Chemotherapy management, encounter for: Status: Acute Comment: Counts reviewed, OK for therapy. Plan: To proceed with C1 Irinotecan (5) Encounter for monoclonal antibody treatment for malignancy: Status: Acute Plan: To proceed with C1 Avastin analogue (6) Swelling of left lower extremity: Status: Acute Plan: To obtain Venous Doppler. Plan Plan Details Follow Up: 2 Weeks 05/08/25 0955 D> Date _ Geoff Dallas MD Cosigner Signature: Date (if applicable) CC: ~ [facility]07-23-2025 Progress note Author Geoff Dallas [facility] Note Date/Time May 08, 2025 9:55 am [facility] [place] [address] OFFICE VISIT Date of Service: 05/08/25915 MR#: [id number] Acct: [id number] Name: LAMINE JOSEPH Rep #: [id number] : 1975 From: Geoff Dallas MD Age/Sex: 49/M Location: [facility] [place] Status: Signed HPI Subjective Date of Service 05/08/25 Chief Complaint F/u to start irinotecan/bevacizumab History of Present Illness 49 y.o.man presented with general weakness to [facility] ER. Brain CT on 09/13/2024 showed frontal lobe mass involving right and left cerebrum. He was transferred to [facility]. CT of the chest abdomen and pelvis on 09/14/2024 did not show any evidence of primary cancer. MRI of the brain on 09/14/2024 showed intraparenchymal mass crossing the midline at the corpus callosum involving bilateral frontal lobes and left basal ganglia/thalamus/cerebral peduncle consistent with multifocal glioblastoma measuring up to 5 cm. He underwent right frontal stereotactic brain biopsy on 09/21/2024. Pathology showed glioblastoma, IDH 1 wild-type. Tumor was considered unresectable so he was now referred for treatment with chemotherapy Temodar and radiation therapy. He developed weakness of his right upper extremity and right lower extremity. He is taking Decadron 2 mg daily. He started Radiation and Temodar 180mg PO daily on 10/29/24. Finished therapy on 12/07/2024. He started Temodar 300mg x 5 on 01/07/2025. 02/04/25: Cycle 2 Temodar 450 mg daily 1-5/28 day cycle. MRI brain on 02/13/2025 showed Multifocal Glioblastoma-stable disease. Got C4 Temodar on 04/01/2025. MRI on 04/08/2025 showed increasing sizes of brain masses. Progressive disease. Comes to start therapy with Irinotecan and Avastin analogue. Still has R sided weakness, has developed R lower leg and foot swelling. [facility] Medical History Weakness of right arm Wears glasses Cancer Walker as ambulation aid Ambulates with cane Non-smoker History of edema DVT (deep venous thrombosis) Frequent falls Pneumonia Headache Long-term current use of steroids Encounter for education Need for pneumocystis prophylaxis Status post stereotactic brain biopsy Glioblastoma multiforme History of traumatic brain injury Family History Father Parkinson's disease Social History Smoking Status: Never smoker alcohol intake: current alcohol intake frequency: holidays/special occasions only substance use type: does not use Intake Vital Signs 04/15/25 15:43 04/22/25 09:22 05/07/25 09:29 05/08/25 09:16 Height 6 ft 1 in 6 ft 1 in 6 ft 1 in 6 ft 1 in Weight: 118.614 kg BMI 34.4 BP 116/81 H Blood Pressure Location Lt brachial Position Sitting Respiration 18 Pulse 94 Pulse Source Monitor Temp 97.3 F L Temperature Source Temporal Artery Pulse Oximetry (%) 65 Oxygen Delivery Method room air Intake Accompanied by: Is patient in pain?: No Allergies No Known Allergies Allergy (Verified 05/08/25 09:22) Medications ?Medication ?Instructions ?Recorded ?Confirmed ?Type acetaminophen 325 mg tablet 325 mg PO ONCE PRN pain 05/08/25 History (Tylenol) docusate sodium 100 mg capsule 100 mg PO QDAY PRN cons tipation 10/11/24 05/08/25 History ondansetron 4 mg disintegrating 4 mg PO Q8H PRN nausea and 10/23/24 05/08/25 Rx tablet vomiting #30 tabs apixaban 5 mg tablet (Eliquis) 5 mg PO BID #60 tabs 05/08/25 Rx sennosides 8.6 mg-docusate sodium 2 tab-cap (2 x 8.6-5 0 mg) PO QHS 01/29/25 05/08/25 Rx 50 mg capsule (Senna Plus) 30 days #60 caps dexamethasone 2 mg tablet 2 mg PO QDAY #30 tabs 05/08/25 Rx lidocaine-prilocaine 2.5 %-2.5 % 1 applic topical ONCE PRN port 04/22/2504/17 Rx topical cream access 30 days #30 grams Central Venous Access Central Venous Access: Yes Port/PICC: Port Exam Physical Exam Narrative PS 2. Const alert, oriented x3 and no apparent distress HEENT normocephalic, external ears normal and external nose normal Eyes no scleral icterus Neck supple Lymph Lymphatic: no lymphadenopathy noted Resp normal respiratory effort and clear to auscultation bilaterally Cardio regular rate, regular rhythm, S1 normal heart sound, S2 normal heart sound and no murmurs GI soft to palpation and non-tender Back/Spine thoracic and lumbar spine normal to inspection Extremity Extremity Narrative: +R lower extremity edema-improving. +L lower leg and foot swelling. Skin no rashes or lesions noted Neuro oriented x3 and CN's II-XII intact bilaterally Neuro Narrative: + weakness R side-power 3/5 upper extremity, 1/5 lower extremity.. Psych mental status grossly normal Coding Level of Care Code Off vis,est,level 5 Exam Problem Focused Diagnoses Glioblastoma multiforme C71.9 Hemiparesis of right dominant side as late effect of other cerebrovascular disease I69.851 Hemiparesis etiology: late effect of cerebrovascular disease Cerebrovascular disease type: other Hemiparesis laterality: right dominant side Acute deep vein thrombosis (DVT) of femoral vein of right lower extremity I82.411 DVT location: lower extremity Affected thrombotic vein of extremity: femoral Chronicity: acute Laterality: right Chemotherapy management, encounter for Z51.11 Encounter for monoclonal antibody treatment for malignancy Z51.12 Swelling of left lower extremity M79.89 Assessment and Plan Assessment and Plan (1) Glioblastoma multiforme: Status: Chronic Comment: Glioblastoma involving right and left frontal lobes, IDH wild-type, status post Stereotactic brain biopsy on 09/21/2024, inoperable, involving both right and left frontal lobes. He now has residual weakness on the right side. Radiation and Temodar 180mg on 10/29/2024- 12/09/24. Started Temodar 350mg daily x 5 on 01/07/2025. MRI 02/13/2025 reviewed, Slight increase in tumors, not significant for progressive disease. MRI on 04/08/2025 showed increasing sizes of brain masses. Progressive disease but may be months. Comes to start therapy. Discussed further management, doing Avastin and Irinotecan. Pt want to proceed with Irinotecan and Avastin analogue. Counts reviewed, OK for therapy. Plan: To proceed with C1 Irinotecan and Avastin Analogue. (2) Hemiparesis: Status: Chronic Qualifiers: Hemiparesis etiology: late effect of cerebrovascular disease Cerebrovascular disease type: other Hemiparesis laterality: right dominant side Qualified Code(s): I69.851 - Hemiplegia and hemiparesis following other cerebrovascular disease affecting right dominant side Comment: R hemiparesis due to Glioblstoma, Plan: Cotninue OT/PT (3) DVT (deep venous thrombosis): Status: Chronic Qualifiers: DVT location: lower extremity Affected thrombotic vein of extremity: femoral Chronicity: acute Laterality: right Qualified Code(s): I82.411 - Acute embolism and thrombosis of right femoral vein Comment: Diagnosed on 01/10/2025, on Eliquis. Plan: To continue Eliquis 5mg bid. (4) Chemotherapy management, encounter for: Status: Acute Comment: Counts reviewed, OK for therapy. Plan: To proceed with C1 Irinotecan (5) Encounter for monoclonal antibody treatment for malignancy: Status: Acute Plan: To proceed with C1 Avastin analogue (6) Swelling of left lower extremity: Status: Acute Plan: To obtain Venous Doppler. Plan Plan Details Follow Up: 2 Weeks 05/08/25 0955 <Electronically signed by Geoff Lyle> Date _ Geoff Dallas MD Cosigner Signature: Date (if applicable) CC: ~ [employer] Work Phone: 1(873) 619-222507-22-2025 Radiology Diagnostic study note [facility] Imaging Services [address] [place] [address] CXR for Line Placement MR#: [id number] Acct: [id number] Name: LAMINE JOSEPH Rep #: [id number] : 1975 M 49 From: Katie Aldana MD PCP: Care Physician,No Primary Status: [facility] Study:CXR for Line Placement Date of Exam: 05/07/25 Exam# [id number] Ordering Dr: Chavez Resendez MD PROCEDURE: CXR FOR LINE PLACEMENT 05/07/2025 REASON FOR EXAM: LINE PLACEMENT TECHNIQUE: Frontal view of the chest. COMPARISON: Chest radiograph 02/12/2025. FINDINGS: Hardware: Interval right IJ chest port with tip overlying the SVC. Heart: Mild cardiomegaly. Lungs: Low lung volumes. Bibasilar atelectasis. No obvious pleural effusion orpneumothorax. Bones: Degenerative changes are identified within the thoracic spine. RAD/CXR for Line Placement IMPRESSION: Right IJ chest port as described. Reading Location: [id number] CC: Dr. Chavez Mcfadden MD; No Primary Care Physician ~ Bird Tender: Signed [facility]07-22-2025 History and physical note Author Chavez Mcfadden [facility] Note Date/Time May 07, 2025 9:53 am [facility] Medical Records Department [address] [facility] [place] [address] History & Physical Exam 05/07/25 0953 MR#: [id number] Acct: [id number] Name: LAMINE JOSEPH Rep #:[id number] : 1975 49 From: Chavez rodriguez MD PCP: Care Physician,No Primary Status :[facility] Location: [place] [address] History and Physical Date of Admission: 05/07/25 Intake Vital Signs 04/15/2515:43 04/16/2508:50 04/17/2510:22 Height 6 ft 1 in 6 ft 1 in 6 ft 1 in Weight: 251 lb 250 lb BMI 33.1 33.0 BP 111/74 Blood Pressure Location Lt brachial Position Sitting Respiration 18 16 Pulse 73 Pulse Source Monitor Temp 97 F L Pulse Oximetry (%) 94 Oxygen Delivery Method room air Intake Visit Reasons: PORT CONSULT Chief Complaint: port consult Dog Behaviorist Required: No Is patient in pain?: No Allergies No Known Allergies Allergy (Verified 04/17/25 10:23) Medications ?Medication ?Instructions ?Recorded ?Confirmed ?Type acetaminophen 325 mg tablet 325 mg PO ONCE PRN 10/05/24 04/17/25 His tory (Tylenol) docusate sodium 100 mg capsule 100 mg PO QDAY PRN 10/11/24 04/17/25 His tory ondansetron 4 mg disintegrating 4 mg PO Q8H PRN nausea and 0112/11 Rx tablet vomiting #30 tabs apixaban 5 mg tablet (Eliquis) 5 mg PO BID #60 tabs 01/29/25 04/17/25 R x sennosides 8.6 mg-docusate sodium 2 tab-cap (2 x 8.6-50 mg) PO QHS 5 04/17/25 Rx 50 mg capsule (Senna Plus) 30 days #60 caps dexamethasone 2 mg tablet 2 mg PO QDAY #30 tabs 03/18/25 04/17/25 Rx temozolomide 100 mg capsule 200 mg PO QDAY 04/01/25 04/17/25 History temozolomide 250 mg capsule 250 mg PO QDAY 04/01/25 04/17/25 History Have you fallen in the past year?: No PFSH Medical History Frequent falls Pneumonia Headache Long-term current use of steroids Encounter for education Need for pneumocystis prophylaxis Status post stereotactic brain biopsy Glioblastoma multiforme History of traumatic brain injury Family History Father Parkinson's disease Social History Smoking Status: Never smoker alcohol intake: current alcohol intake frequency: holidays/special occasions only substance use type: does not use HPI HPI HPI: Patient is a 49-year-old male with glioblastoma that is here for port placement. ROS General General: Yes fatigue; No weight change, appetite, colon cancer, breast cancer or weakness HEENT HEENT: No difficulty swallowing, eye injury, eye surgery, swollen glands or hoarseness Endo Endocrine: No thyroid disease, diabetes mellitus, thyroid cancer, Hair loss, heat intolerance or cold intolerance Skin Skin: No rash or changing moles Breast Breast: No left breast lump, right breast lump, nipple discharge, breast pain, abnormal mammogram, abnormal US or breast enlargement Musc Musculoskeletal: No back problems, arthritis, rheumatoid arthritis, gout or joint pain Cardio Cardiovascular: No murmur, pacemaker, heart disease, atrial fibrillation, high blood pressure, heart attack, heart stent, palpitations, shortness of breath with exertion or chest pain Psych Psychiatric: No depression, anxiety or hearing voices Resp Respiratory: No shortness of breath, No sleep apnea, No cough, No COPD, No asthma, No emphysema and No wheezing Gastro Gastrointestinal: No abdominal pain, No nausea or vomiting, No diarrhea, No constipation, No blood in stool, No acid reflux, No hemorrhoids, No ulcers, No gallbladder problem and No black,tarry stools Jimmy Hematologic: Yes blood thinners, No blood disorders, No bleeding, No anemia and Yes blood clots Neuro Neurologic: No system reviewed and no additional complaints, except as documented, No as per HPI, No abnormal gait, No abnormal hearing, No abnormal movements, No abnormal speech, No behavioral changes, No burning sensations, No confusion, No convulsions, No disequilibrium, No dizziness, No localized weakness, No frequent falls, No headache(s), No lack of coordination, No loss ofvision, No memory loss, Yes numbness, No other visual disturbances, No radicularpain, No restless legs, No sensory deficit, No syncope, Yes tingling, No tremor(s), No weakness and No other Exam Const General: cooperative Orientation: alert and oriented x3 HENUT Head: normal to inspection Neck Neck: normal visual inspection and full ROM Chest Chest palpation & inspection: normal inspection of the chest Resp Effort & Inspection: normal respiratory effort Auscultation: clear to auscultation bilaterally Cardio Rate: regular rate Rhythm: regular rhythm GI Inspection: non-distended Palpation: soft and nontender Skin General: no rashes or lesions noted Neuro General: patient alert and patient oriented x3 Extrem General: full ROM Psych Appearance: grossly normal Mental Status: mental status grossly normal Assessment and Plan Assessment and Plan (1) Encounter for insertion of venous access port: Status: Acute Plan: I discussed placement of right chest port with the patient in detail. I discussed the risks including but not limited to bleeding, infection, pneumothorax, DVT or line infection. Patient understands the risks and is willing to proceed. Chavez Mcfadden MD Pager: [facility] [address] [place] [address], [address] [place] [address] Office: I have examined the patient and the H&P has been reviewed. There are no clinicalchanges since date of exam. The patient started having swelling of his oppositeleg and he may have DVT in the opposite leg. I will try to start his Denita devries. 05/07/25 0953 <Electronically signed by Chavez Mcfadden MD> Cosigner Signature (if applicable): CC: Dr. Chavez Mcfadden MD; No Primary Care Physician~ Signed [facility] Work Phone: 1(645) 791-355307-22-2025 Consult note Author Ming Bowling [facility] Note Date/Time May 07, 2025 9:33 am [facility] Medical Records Department [address] [place] [address] Pre-Anesthesia Evaluation 05/07/25 0933 MR#: [id number] Acct: [id number] Name: LAMINE JOSEPH Rep #:[id number] : 1975 49 From: Ming Lyle PCP: Care Physician,No Primary Status :REG [facility] Y Race: C Location: [place] [address] ASA Classification* ASA Classification ASA Classification: 3 Assessment & Plan Anesthesia* Anesthesia Assessment Anesthesia Assessment: Discussed sedation and/or anesthesia options, risks, benefits, and alternatives with patient/parents/legal guardian/POA. Questions invited. The patient/parents/legal guardian/POA seems to understand and agrees to proceedwith anesthesia plan. Reviewed the physical assessment, medical history, allergy history and patient home medications list prior to surgery/procedure/anesthetic and documented any changes. Performed airway and anesthesia risk assessments. Anesthesia Type Anesthesia Type: MAC History Source History Obtained from:: Patient and Chart Anesthesia Focused Assessment* Temperature: 98.5 F Pulse Rate: 56 Blood Pressure: 127/87 Respiratory Rate: 16 Pulse Ox: 98 Airway Assessment Mouth opens: >3 cm Mallampati Score: I Labs Anesthesia Preop lab: CBC WBC 10.4 K/mm3 (4.4-11.0) 04/15/25 14:58 04/15/25 RBC 4.76 M/mm3 (4.6-6.2) 04/15/25 14:58 04/15/25 Hgb 15.7 g/dL (13.0-16.5) 04/15/25 14:58 04/15/25 Hct 46.8 % (40-54) 04/15/25 14:58 04/15/25 Plt Count 197 K/mm3 (150-450) 04/15/25 14:58 04/15/25 CHEMISTRY Potassium 4.1 mmol/L (3.3-5.1) 04/15/25 14:58 04/15/25 Sodium 139 mmol/L (133-145) 04/15/25 14:58 04/15/25 BUN 16 mg/dL (4-19) 04/15/25 14:58 04/15/25 Creatinine 0.96 mg/dL (0.70-1.20) 04/15/25 14:58 04/15/25 Glucose 104 mg/dL (70-99) H 04/15/25 14:58 04/15/25 TSH 0.338 uIU/mL (0.358-3.740) L 09/13/24 16:30 COAG Pre-Assessment Diagnosis/Proposed Procedure Planned Operative Procedure(s): (R) Insertion, Vascular Port right poss left Anesthesia History Anesthesia History - data transcriber: Anesthesia History - data transcriber Hx Hospitalization Yes: BRAIN BIOPSY 04/18/25 13:09 Any Problems With Anesthesia No 04/18/25 13:09 Cholinesterase deficiency No 04/18/25 13:09 You/Your Family Experience No 04/18/25 13:09 fever (hyperthermia) with Relationship Recent Exposure to Contagious No 05/07/25 09:29 Disease Does patient have nerve No 04/18/25 13:09 stimulator Patient instructed to have device shut off --Does patient have Pacemaker No 05/07/25 09:29 or ICD? When Was Last Pacemaker Check QUESTION #4 FULL TEXT: You/Your Family Experience fever (hyperthermia) with Anesthesia Last Oral Intake Last Oral intake: Last Oral Intake NPO since 08:00 05/07/25 09:29 Meds taken in AM with sips of Yes 05/07/25 09:29 water? Meds patient instructed to DEXAMETHASONE 05/07/25 09:29 take am of surgery PONV PONV - data transcriber: PONV - data transcriber Female No 04/18/25 13:09 HX of Motion Sickness No 04/18/25 13:09 HX of N/V After Surgery No 04/18/25 13:09 Non-Smoker Yes 04/18/25 13:09 Duration of Surgery greater No 04/18/25 13:09 than 60 minutes Number of Risk Factors 1 04/18/25 13:09 PONV Score Low Risk 04/18/25 13:09 Height & Weight Height & Weight: Anesthesia: Height & Weight Height 6 ft 1 in 05/07/25 09:29 Weight: 113.398 kg 05/07/25 09:29 Body Mass Index (BMI) 33.0 05/07/25 09:29 Respiratory Assessment Respiratory Assessment - data transcriber: Respiratory Tract Infection Hx - data transcriber Hx Respiratory Tract Infection No 04/18/25 13:09 STOP Sleep Apnea STOP Sleep Apnea - data transcriber: STOP Sleep Apnea - data transcriber Hx Hypertension No 04/18/25 13:09 Hx Sleep Apnea No 04/18/25 13:09 CPAP BIPAP Do you snore loudly (louder No 04/18/25 13:09 than talking or can be heard Do you often feel tired/ No 04/18/25 13:09 fatigued/ sleepy during daytime? Has anyone observed you stop No 04/18/25 13:09 breathing during sleep? STOP Results Negative 04/18/25 13:09 QUESTION #5 FULL TEXT : Do you snore loudly (louder than talking or can be heard through closed doors)? 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 Specify any problems Hx of Preganancy in last 3 N/A 04/18/25 13:09 Months Nurse Filling Out Transfusion [facility] 04/18/25 13:09 & Questions: Date: 04/18/25 04/18/25 13:09 Time: 13:16 04/18/25 13:09 Patient unable to answer at this time (ie. confused, unrespo /Reproduction History /Reproductive History - data transcriber: /Reproductive Hx- data transcriber Hx Now Gestational Age (in weeks): EDC: Hx Hx Para Hx Section SAB Active Medications Active Medications: Current Medications Generic Name Dose Route Start Last Admin Trade Name Freq PRN Reason Stop Dose Admin Cefazolin Sodium 2 gm/ Sodium 110 mls @ 200 mls/hr 05/07/25 09:45 Chloride IV 05/07/25 10:17 INTRAOP ONE Lactated Ringer's 1,000 mls @ 15 mls/hr 05/07/25 08:45 IV .Q48H [facility] Medical History Weakness of right arm Wears glasses Cancer Walker as ambulation aid Ambulates with cane Non-smoker History of edema DVT (deep venous thrombosis) Frequent falls Pneumonia Headache Long-term current use of steroids Encounter for education Need for pneumocystis prophylaxis Status post stereotactic brain biopsy Glioblastoma multiforme History of traumatic brain injury Home Medications ?Medication ?Instructions ?Recorded ?Last Taken ?Type acetaminophen 325 mg tablet 325 mg PO ONCE PRN pain Unknown History (Tylenol) docusate sodium 100 mg capsule 100 mg PO QDAY PRN cons tipation 10/11/24 Unknown History ondansetron 4 mg disintegrating 4 mg PO Q8H PRN nausea and 10/23/24 Unknown Rx tablet vomiting #30 tabs apixaban 5 mg tablet (Eliquis) 5 mg PO BID #60 tabs 05/03/25 Rx sennosides 8.6 mg-docusate sodium 2 tab-cap (2 x 8.6-5 0 mg) PO QHS 01/29/25 Unknown Rx 50 mg capsule (Senna Plus) 30 days #60 caps dexamethasone 2 mg tablet 2 mg PO QDAY #30 tabs 05/07/25 08:00 Rx lidocaine-prilocaine 2.5 %-2.5 % 1 applic topical ONCE PRN port 04/22/25 Unknown Rx topical cream access 30 days #30 grams Allergy/AdvReac Type Severity Reaction Status Date / Time No Known Allergies Allergy Verified 05/07/25 09:23 Family History Father Parkinson's disease Social History Smoking Status: Never smoker alcohol intake: current alcohol intake frequency: holidays/special occasions only substance use type: does not use Review of Systems (Anesthesia) ROS Narrative System reviewed and no additional complaints, except as documented. 05/07/2533 <Electronically signed by Ming Bowling MD> Date _ Ming Bowling MD Cosigner Signature: Date CC: ~ Signed [facility] Work Phone: 1(476) 456-412707-22-2025 Consult note [facility] Medical Records Department [address] [place] [address] Anesthesia Postop Eval I 05/07/25 110 MR#: [id number] Acct: [id number] Name: LAMINE JOSEPH Rep #:[id number] : 1975 49 From: Giovani VALADEZ PCP: Care Physician,No Primary Status :[facility] [place] Race: C Location: [place] [address] Anesthesia: Postop Eval I Current Vital Signs Temperature: 97.8 F Pulse Rate: 71 Blood Pressure: 145/90 Respiratory Rate: 16 Pulse Ox: 95 Oxygen Delivery Method: Nasal Cannula Oxygen Flow Rate (L/min): 3 Assessment Airway patent: Yes Spontaneous unlabored respirations: No Mental status: Awake nausea: No Vomiting: No Anesthesia Complication: No Fluid Hydration Crystalloid volume administer (ml): 200 Total IV fluid infused: 200 Progress Note Anesthesia document: Postop Eval 1 completed: Yes 05/07/25 1106 CASH ROOM CLERK> Date _ Giovani Shirley CASH ROOM CLERK Cosigner Signature: Date CC: ~ Signed [facility]07-22-2025 Discharge summary [facility] Medical Records Department [address] [place] [address] Instructions for Home/Discharge Instructions 05/07/25 1104 MR#: [id number] Acct: [id number] Name: LAMINE JOSEPH Rep #:[id number] : 1975 49 From: Chavez rodriguez MD PCP: Care Physician,No Primary Status :[facility] Discharge Instructions Procedure Port-A-Cath Diet Discharge Diet: Light diet - advance as tolerated (Pain medication may cause nausea. You should typically eat light foods as you take your pain medication.) Activity Discharge Activity: Return to Normal Activity and May Shower (with your bandage in place in 1-2 days after surgery. DO NOT SHOWER WHEN YOUR PORT IS ACCESSED.) Additional Activity Instructions:: Resume Eliquis tonight Dressing / Incision Call your doctor if your incision/area has: Continuous Slow Oozing, Sudden Increased Bleeding, Increased Pain/ Swelling, Increased Redness and Foul Smelling Discharge Call your doctor if you observe: Fever of 101 or Higher Remove Dressing in: 2 days Cleanse incision/area with: Soap & Water Follow Up Care Please Follow Up With: Chavez Mcfadden MD When: as needed [phone] Test Results: Test results from this visit will be discussed in further detail at your follow- up appointment, if applicable. Discharge Plan Admission Attending Provider: Chavez Mcfadden Primary Care Provider: Care Physician,No Primary Instructions Print Language: Russian Discharge Orders/Prescriptions Prescriptions: No Action acetaminophen [Tylenol] 325 mg tablet 325 mg PO ONCE PRN (Reason: pain) docusate sodium 100 mg capsule 100 mg PO QDAY PRN (Reason: constipation) ondansetron 4 mg tablet,disintegrating 4 mg PO Q8H PRN (Reason: nausea and vomiting) Qty: 30 1RF lidocaine-prilocaine 2.5-2.5 % cream 1 applic topical ONCE PRN (Reason: port access) 30 Days Qty: 30 2RF Senna Plus 8.6-50 mg capsule 2 tab-cap PO QHS 30 Days Qty: 60 3RF Eliquis 5 mg tablet 5 mg PO BID Qty: 60 5RF Patient Comments: WILL STOP 3 DAYS BEFORE PROCEDURE dexamethasone 2 mg tablet 2 mg PO QDAY Qty: 30 3RF Referrals / Follow Up: Care Physician,No Primary [Primary Care Provider] - Disposition Disposition (needs filled in before D/C Order can be placed): Home, Self Care 05/07/25 1104Aefren Mcfadden MD CC: No Primary Care Physician ~ Signed [facility]07-22-2025 Procedure note [facility] Medical Records Department [address] [place] [address] Operative Report 05/07/25 1103 MR#: [id number] Acct: [id number] Name: LAMINE JOSEPH Rep #:[id number] : 1975 49 From: Chavez rodriguez MD PCP: Care Physician,No Primary Status :[facility] Location: [place] [address] Operative Report (Standard) Operative Information Date of Procedure: 05/07/25 Pre-Operative Diagnosis: Need for vascular access for chemotherapy Post-Operative Diagnosis: Same Surgery/Procedure Performed: Ultrasound and fluoroscopy guided right chest port placement utilizingright IJ bindery worker: No Type of Anesthesia: Local MAC RN Documented Start/Stop Times: Operation Date: 05/07/25 10:00 Case Time Into Pre-Op 05/07/25 08:41 Out of Pre-Op 05/07/25 10:22 Anesthesia Start 05/07/25 10:25 Into Room 05/07/25 10:25 Procedure Start 05/07/25 10:41 Procedure Start Time: 10:41 Procedure Stop Time: 11:00 Select all DRAINS/GRAFTS/IMPLANTS that apply: Implanted device Implanted device details: 8 [employer] PowerPort Estimated Blood Loss: 5 Specimen collected: No Description of surgery: After obtaining informed consent patient was brought back to the operating room MAC anesthesia was induced and the right chest and neck were prepped in normal sterile fashion. Ultrasound was used to evaluate both IJs and the right IJ was selected. Next, using a needle, the right IJ was accessed mojgan guidewire was passed on into the superior vena cava under fluoroscopy guidance. A small incision was made over the puncture site and the dilator introducer was placed over the guidewire. Next this was capped and the pocket was made for the port. 1% lidocaine with epinephrine was injected in the proposed port site. An incision was made with scalpel. Electrocautery was used to make a pocket under the skin and subcutaneous tissue. Hemostasis was obtained. Next, the catheter was tunneled up to the neck incision site and placed through the introducer. The peel-away introducer was removed and theposition of the catheter was confirmed on fluoroscopy. Next, the catheter was trimmed and attached to the port with the locking device. Interrupted 2-0 Vicryl sutures were used to anchor theport to th e chest wall and then the port was placed inside the pocket. The pocket was then flushed with saline and the port irrigated with saline. There was good blood return and the port flushed easily. Next,heparin was injected into the port. The skin was closed with subcutaneous interrupted 3-0 Vicryl sutures. A single 3-0 Vicryl sutures placed under the skin at the neck incisionsite. Steri-Strips were placed as well as op sites. Patient tolerated procedure well, was taken to PACU in stable condition. Chest x-ray will be obtained. Surgical Findings: None Complications Complications: No 05/07/25 1104 Cosigner Signature (if applicable): CC: Dr. Chavez Mcfadden MD; No Primary Care Physician~ Signed [facility]07-22-2025 History and physical note [facility] Medical Records Department [address] [place] [address] History & Physical Exam 05/07/25 0953 MR#: [id number] Acct: [id number] Name: LAMINE JOSEPH Rep #:[id number] : 1975 49 From: Chavez rodriguez MD PCP: Care Physician,No Primary Status :[facility] Location: [place] [address] History and Physical Date of Admission: 05/07/25 Intake Vital Signs 04/15/2515:43 04/16/2508:50 04/17/2510:22 Height 6 ft 1 in 6 ft 1 in 6 ft 1 in Weight: 251 lb 250 lb BMI 33.1 33.0 BP 111/74 Blood Pressure Location Lt brachial Position Sitting Respiration 18 16 Pulse 73 Pulse Source Monitor Temp 97 F L Pulse Oximetry (%) 94 Oxygen Delivery Method room air Intake Visit Reasons: PORT CONSULT Chief Complaint: port consult Dog Behaviorist Required: No Is patient in pain?: No Allergies No Known Allergies Allergy (Verified 04/17/25 10:23) Medications ?Medication ?Instructions ?Recorded ?Confirmed ?Type acetaminophen 325 mg tablet 325 mg PO ONCE PRN 10/05/24 04/17/25 His tory (Tylenol) docusate sodium 100 mg capsule 100 mg PO QDAY PRN 10/11/24 04/17/25 His tory ondansetron 4 mg disintegrating 4 mg PO Q8H PRN nausea and 10/23/2412/11 Rx tablet vomiting #30 tabs apixaban 5 mg tablet (Eliquis) 5 mg PO BID #60 tabs 01/29/25 04/17/25 R x sennosides 8.6 mg-docusate sodium 2 tab-cap (2 x 8.6-50 mg) PO QHS 5 04/17/25 Rx 50 mg capsule (Senna Plus) 30 days #60 caps dexamethasone 2 mg tablet 2 mg PO QDAY #30 tabs 03/18/25 04/17/25 Rx temozolomide 100 mg capsule 200 mg PO QDAY 04/01/25 04/17/25 History temozolomide 250 mg capsule 250 mg PO QDAY 04/01/25 04/17/25 History Have you fallen in the past year?: No PFSH Medical History Frequent falls Pneumonia Headache Long-term current use of steroids Encounter for education Need for pneumocystis prophylaxis Status post stereotactic brain biopsy Glioblastoma multiforme History of traumatic brain injury Family History Father Parkinson's disease Social History Smoking Status: Never smoker alcohol intake: current alcohol intake frequency: holidays/special occasions only substance use type: does not use HPI HPI HPI: Patient is a 49-year-old male with glioblastoma that is here for port placement. ROS General General: Yes fatigue; No weight change, appetite, colon cancer, breast cancer or weakness HEENT HEENT: No difficulty swallowing, eye injury, eye surgery, swollen glands or hoarseness Endo Endocrine: No thyroid disease, diabetes mellitus, thyroid cancer, Hair loss, heat intolerance or cold intolerance Skin Skin: No rash or changing moles Breast Breast: No left breast lump, right breast lump, nipple discharge, breast pain, abnormal mammogram, abnormal US or breast enlargement Musc Musculoskeletal: No back problems, arthritis, rheumatoid arthritis, gout or joint pain Cardio Cardiovascular: No murmur, pacemaker, heart disease, atrial fibrillation, high blood pressure, heart attack, heart stent, palpitations, shortness of breath with exertion or chest pain Psych Psychiatric: No depression, anxiety or hearing voices Resp Respiratory: No shortness of breath, No sleep apnea, No cough, No COPD, No asthma, No emphysema andNo wheezing Gastro Gastrointestinal: No abdominal pain, No nausea or vomiting, No diarrhea, No constipation, No blood in stool, No acid reflux, No hemorrhoids, No ulcers, No gallbladder problem and No black,tarry stools Jimmy Hematologic: Yes blood thinners, No blood disorders, No bleeding, No anemia and Yes blood clots Neuro Neurologic: No system reviewed and no additional complaints, except as documented, No as per HPI, No abnormal gait, No abnormal hearing, No abnormal movements, No abnormal speech, No behavioral changes, No burning sensations, No confusion, No convulsions, No disequilibrium, No dizziness, No localized weakness, No frequent falls, No headache(s), No lack of coordination, No loss ofvision, No memoryloss, Yes numbness, No other visual disturbances, No radicularpain, No restless legs, No sensory deficit, No syncope, Yes tingling, No tremor(s), No weakness and No other Exam Const General: cooperative Orientation: alert and oriented x3 HENMT Head: normal to inspection Neck Neck: normal visual inspection and full ROM Chest Chest palpation & inspection: normal inspection of the chest Resp Effort & Inspection: normal respiratory effort Auscultation: clear to auscultation bilaterally Cardio Rate: regular rate Rhythm: regular rhythm GI Inspection: non-distended Palpation: soft and nontender Skin General: no rashes or lesions noted Neuro General: patient alert and patient oriented x3 Extrem General: full ROM Psych Appearance: grossly normal Mental Status: mental status grossly normal Assessment and Plan Assessment and Plan (1) Encounter for insertion of venous access port: Status: Acute Plan: I discussed placement of right chest port with the patient in detail. I discussed the risks including but not limited to bleeding, infection, pneumothorax, DVT or line infection. Patient understands the risks and is willing to proceed. Chavez Mcfadden MD Pager: [facility] [address] [facility], [address] [place] [address] Office: I have examined the patient and the H&P has been reviewed. There are no clinicalchanges since date of exam. The patient started having swelling of his oppositeleg and he may have DVT in the opposite leg. I will try to start his Eliquis tonight. 05/07/25 0953 Cosigner Signature (if applicable): CC: Dr. Chavez Mcfadden MD; No Primary Care Physician~ Signed [facility] Consult note [facility] Medical Records Department [address] [place] [address] Pre-Anesthesia Evaluation 05/07/25 0933 MR#: [id number] Acct: [id number] Name: LAMINE JOSEPH Rep #:[id number] : 1975 49 From: Ming Lyle PCP: Care Physician,No Primary [place] Race: C Location: [place] [address] ASA Classification* ASA Classification ASA Classification: 3 Assessment & Plan Anesthesia* Anesthesia Assessment Anesthesia Assessment: Discussed sedation and/or anesthesia options, risks, benefits, and alternatives with patient/parents/legal guardian/POA. Questions invited. The patient/parents/legal guardian/POA seems to understand and agrees to proceedwith anesthesia plan. Reviewed the physical assessment, medical history, allergy history and patient home medications list prior to surgery/procedure/anesthetic and documented any changes. Performed airway and anesthesia risk assessments. Anesthesia Type Anesthesia Type: MAC History Source History Obtained from:: Patient and Chart Anesthesia Focused Assessment* Temperature: 98.5 F Pulse Rate: 56 Blood Pressure: 127/87 Respiratory Rate: 16 Pulse Ox: 98 Airway Assessment Mouth opens: >3 cm Mallampati Score: I Labs Anesthesia Preop lab: CBC WBC 10.4 K/mm3 (4.4-11.0) 04/15/25 14:58 04/15/25 RBC 4.76 M/mm3 (4.6-6.2) 04/15/25 14:58 04/15/25 Hgb 15.7 g/dL (13.0-16.5) 04/15/25 14:58 04/15/25 Hct 46.8 % (40-54) 04/15/25 14:58 04/15/25 Plt Count 197 K/mm3 (150-450) 04/15/25 14:58 04/15/25 CHEMISTRY Potassium 4.1 mmol/L (3.3-5.1) 04/15/25 14:58 04/15/25 Sodium 139 mmol/L (133-145) 04/15/25 14:58 04/15/25 BUN 16 mg/dL (4-19) 04/15/25 14:58 04/15/25 Creatinine 0.96 mg/dL (0.70-1.20) 04/15/25 14:58 04/15/25 Glucose 104 mg/dL (70-99) H 04/15/25 14:58 04/15/25 TSH 0.338 uIU/mL (0.358-3.740) L 09/13/24 16:30 COAG Pre-Assessment Diagnosis/Proposed Procedure Planned Operative Procedure(s): (R) Insertion, Vascular Port right poss left Anesthesia History Anesthesia History - data transcriber: Anesthesia History - data transcriber Hx Hospitalization Yes: BRAIN BIOPSY 04/18/25 13:09 Any Problems With Anesthesia No 04/18/25 13:09 Cholinesterase deficiency No 04/18/25 13:09 You/Your Family Experience No 04/18/25 13:09 fever (hyperthermia) with Relationship Recent Exposure to Contagious No 05/07/25 09:29 Disease Does patient have nerve No 04/18/25 13:09 stimulator Patient instructed to have device shut off --Does patient have Pacemaker No 05/07/25 09:29 or ICD? When Was Last Pacemaker Check QUESTION #4 FULL TEXT: You/Your Family Experience fever (hyperthermia) with Anesthesia Last Oral Intake Last Oral intake: Last Oral Intake NPO since 08:00 05/07/25 09:29 Meds taken in AM with sips of Yes 05/07/25 09:29 water? Meds patient instructed to DEXAMETHASONE 05/07/25 09:29 take am of surgery PONV PONV - data transcriber: PONV - data transcriber Female No 04/18/25 13:09 HX of Motion Sickness No 04/18/25 13:09 HX of N/V After Surgery No 04/18/25 13:09 Non-Smoker Yes 04/18/25 13:09 Duration of Surgery greater No 04/18/25 13:09 than 60 minutes Number of Risk Factors 1 04/18/25 13:09 PONV Score Low Risk 04/18/25 13:09 Height & Weight Height & Weight: Anesthesia: Height & Weight Height 6 ft 1 in 05/07/25 09:29 Weight: 113.398 kg 05/07/25 09:29 Body Mass Index (BMI) 33.0 05/07/25 09:29 Respiratory Assessment Respiratory Assessment - data transcriber: Respiratory Tract Infection Hx - data transcriber Hx Respiratory Tract Infection No 04/18/25 13:09 STOP Sleep Apnea STOP Sleep Apnea - data transcriber: STOP Sleep Apnea - data transcriber Hx Hypertension No 04/18/25 13:09 Hx Sleep Apnea No 04/18/25 13:09 CPAP BIPAP Do you snore loudly (louder No 04/18/25 13:09 than talking or can be heard Do you often feel tired/ No 04/18/25 13:09 fatigued/ sleepy during daytime? Has anyone observed you stop No 04/18/25 13:09 breathing during sleep? STOP Results Negative 04/18/25 13:09 QUESTION #5 FULL TEXT : Do you snore loudly (louder than talking or can be heard through closeddoors)? 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 Specify any problems Hx of Preganancy in last 3 N/A 04/18/25 13:09 Months Nurse Filling Out Transfusion [facility] 04/18/25 13:09 & Questions: Date: 04/18/25 04/18/25 13:09 Time: 13:16 04/18/25 13:09 Patient unable to answer at this time (ie. confused, unrespo /Reproduction History /Reproductive History - data transcriber: /Reproductive Hx- data transcriber Hx Now Gestational Age (in weeks): EDC: Hx Hx Para Hx Section SAB Active Medications Active Medications: Current Medications Generic Name Dose Route Start Last Admin Trade Name Freq PRN Reason Stop Dose Admin Cefazolin Sodium 2 gm/ Sodium 110 mls @ 200 mls/hr 05/07/25 09:45 Chloride IV 05/07/25 10:17 INTRAOP ONE Lactated Ringer's 1,000 mls @ 15 mls/hr 05/07/25 08:45 IV .Q48H [facility] Medical History Weakness of right arm Wears glasses Cancer Walker as ambulation aid Ambulates with cane Non-smoker History of edema DVT (deep venous thrombosis) Frequent falls Pneumonia Headache Long-term current use of steroids Encounter for education Need for pneumocystis prophylaxis Status post stereotactic brain biopsy Glioblastoma multiforme History of traumatic brain injury Home Medications ?Medication ?Instructions ?Recorded ?Last Taken ?Type acetaminophen 325 mg tablet 325 mg PO ONCE PRN pain Unknown History (Tylenol) docusate sodium 100 mg capsule 100 mg PO QDAY PRN cons tipation 10/11/24 Unknown History ondansetron 4 mg disintegrating 4 mg PO Q8H PRN nausea and 10/23/24 Unknown Rx tablet vomiting #30 tabs apixaban 5 mg tablet (Eliquis) 5 mg PO BID #60 tabs 05/03/25 Rx sennosides 8.6 mg-docusate sodium 2 tab-cap (2 x 8.6-5 0 mg) PO QHS 01/29/25 Unknown Rx 50 mg capsule (Senna Plus) 30 days #60 caps dexamethasone 2 mg tablet 2 mg PO QDAY #30 tabs 05/07/25 08:00 Rx lidocaine-prilocaine 2.5 %-2.5 % 1 applic topical ONCE PRN port 04/22/25 Unknown Rx topical cream access 30 days #30 grams Allergy/AdvReac Type Severity Reaction Status Date / Time No Known Allergies Allergy Verified 05/07/25 09:23 Family History Father Parkinson's disease Social History Smoking Status: Never smoker alcohol intake: current alcohol intake frequency: holidays/special occasions only substance use type: does not use Review of Systems (Anesthesia) ROS Narrative System reviewed and no additional complaints, except as documented. 05/07/25932 > Date _ Ming Bowling MD [facility] Signature: Date CC: ~ Signed [facility]06-16-2025 Progress [facility] [address] [place] [id number] OFFICE VISIT Date of Service: 04/01/25 1420 MR#: [id number] Acct: [id number] Name: LAMINE JOSEPH Rep #: [id number] : 1975 From: Vielka Bennett ch CAMPAIGN COORDINATOR CAMPAIGN COORDINATOR-C Age/Sex: 49/M Location: [facility] [place] Status: Signed HPI Subjective Date of Service 04/01/25 Chief Complaint Glioblastoma on treatment History of Present Illness 49 y.o.man presented with general weakness to [facility] ER. Brain CT on 09/13/2024 showed frontal lobe mass involving right and left cerebrum. He was transferred to [facility]. CT of the chest abdomen andpelvis on 09/14/2024 did not show any evidence of primary cancer. MRI of the brain on 09/14/2024 showed intraparenchymal mass crossing the midline at the corpus callosum involving bilateral frontal lobes and left basal ganglia/thalamus/cerebral peduncle consistent with multifocal glioblastoma measuring up to 5 cm. He underwent right frontal stereotactic brain biopsy on 09/21/2024. Pathology showedglioblastoma, IDH 1 wild-type. Tumor was considered unresectable so he was now referred for treatment with chemotherapy Temodar and radiation therapy. He developed weakness of his right upper extremity and right lower extremity. He is taking Decadron 2 mg daily. He started Radiation and Temodar 180mg PO daily on 10/29/24. Finished therapy on 12/07/2024. He started Temodar 300mg x 5 on 01/07/2025. 02/04/25: Cycle 2 Temodar 450 mg daily 1-5/28 day cycle. MRI brain on 02/13/2025 showed Multifocal Glioblastoma-stable disease. Interval History Patient is presenting to clinic today accompanied by spouse for an evaluation anticipating he will be given cycle 4 Temodar 450 mg days 1 through 5. He is predmedicating with zofran 8 mg prior to taking temodar. No nausea. Confirms he does have Temodar in his possession to begin. Reports he fell this morning in this morning in the kitchen while cooking breakfast. He was able tohelp Fell yesterday outside on uneven grassy area, spouse attributes recent falls to increased fatigue. When he's tired, he doesn't walk well. Neither episode caused injury. C/o headache, right frontal daily upon waking. Dissipates over the course of themorning without intervention. No vision changes, N/V. Meets with OT/PT weekly. [facility] Medical History Pneumonia Headache Long-term current use of steroids Encounter for education Need for pneumocystis prophylaxis Status post stereotactic brain biopsy Glioblastoma multiforme History of traumatic brain injury Family History Father Parkinson's disease Social History Smoking Status: Never smoker alcohol intake: current alcohol intake frequency: holidays/special occasions only substance use type: does not use ROS ROS Narrative Negative except as documented in the interval HPI Intake Vital Signs 03/18/25 15:00 04/01/25 14:21 Height 6 ft 1 in 6 ft 1 in Weight: 251 lb 4 oz 248 lb BMI 33.1 32.7 BP 124/76 H 118/80 Blood Pressure Location Lt brachial Lt brachial Position Sitting Sitting Respiration 16 16 Pulse 77 85 Pulse Source Monitor Monitor Temp 97.3 F L 98.2 F Temperature Source Temporal Artery Temporal Artery Pulse Oximetry (%) 93 96 Oxygen Delivery Method room air room air Intake Dog Behaviorist Required: No Accompanied by: Self Is patient in pain?: No Allergies No Known Allergies Allergy (Verified 04/01/25 14:26) Medications ?Medication ?Instructions ?Recorded ?Confirmed ?Type acetaminophen 325 mg tablet 325 mg PO ONCE PRN 4 04/01/25 History (Tylenol) docusate sodium 100 mg capsule 100 mg PO QDAY PRN 09/1704/01/25 History ondansetron 4 mg disintegrating 4 mg PO Q8H PRN nausea and 10/23/24 04/01/25 Rx tablet vomiting #30 tabs apixaban 5 mg tablet (Eliquis) 5 mg PO BID #60 tabs 04/01/25 Rx sennosides 8.6 mg-docusate sodium 2 tab-cap (2 x 8.6-5 0 mg) PO QHS 01/29/25 04/01/25 Rx 50 mg capsule (Senna Plus) 30 days #60 caps dexamethasone 2 mg tablet 2 mg PO QDAY #30 tabs 04/01/25 Rx temozolomide 100 mg capsule 200 mg PO QDAY 04/01/25 History temozolomide 250 mg capsule 250 mg PO QDAY 04/01/25 History Central Venous Access Central Venous Access: No Laboratory Tests 04/01/25 13:58 WBC 14.3 H Hgb 15.6 Hct 46.3 Plt Count 192 Absolute Neuts (auto) 12.4 H Sodium 139 Potassium 3.5 Chloride 105 Carbon Dioxide 18.2 L BUN 18 Creatinine 1.08 Glucose 134 H Calcium 9.3 Total Bilirubin 0.26 AST 18 ALT 33 Alkaline Phosphatase 53 Albumin 3.8 Exam Physical Exam Narrative ECOG 2-3, wheelchair Const alert, oriented x3 and no apparent distress General Appearance: cooperative HEENT normocephalic and head/scalp atraumatic Eyes Eyes Narrative: wears glasses General Eye: normal appearance of both eyes Neck no lymphadenopathy Resp normal respiratory effort and clear to auscultation bilaterally Cardio regular rate, regular rhythm, S1 normal heart sound and S2 normal heart sound GI normal to inspection, nondistended, normoactive bowel sounds and soft to palpation Back/Spine no CVA tenderness and no thoracic nor lumbar tenderness Extremity no clubbing, cyanosis or edema Skin no rashes or lesions noted Neuro oriented x3 and CN's II-XII intact bilaterally Neuro Narrative: Right hemiparesis Psych Attitude: calm and engaged Attention / Concentration: attention grossly intact and concentration grossly intact Coding Level of Care Code Off vis,est,level 4 Exam Problem Focused Diagnoses Glioblastoma multiforme C71.9 Hemiparesis of right dominant side as late effect of other cerebrovascular disease I69.851 Hemiparesis etiology: late effect of cerebrovascular disease Cerebrovascular disease type: other Hemiparesis laterality: right dominant side Acute deep vein thrombosis (DVT) of femoral vein of right lower extremity I82.411 DVT location: lower extremity Affected thrombotic vein of extremity: femoral Chronicity: acute Laterality: right Assessment and Plan Assessment and Plan (1) Glioblastoma multiforme: Status: Chronic Comment: Glioblastoma involving right and left frontal lobes, IDH wild-type, status post Stereotactic brain biopsy on 09/21/2024, inoperable, involving both right and left frontal lobes. He now has residual weakness on the right side. Radiation and Temodar 180mg on 10/29/2024- 12/09/24. Started Temodar 350mg daily x 5 on 01/07/2025. MRI 02/13/2025 reviewed, Slight increase in tumors, not significant for progressive disease. Plan: Commence with c4 temodar, 450 mg days 1-5 today. Request MRI brain wwo now to address new reports of daily, persistent headache and frequent falls. (2) Hemiparesis: Status: Chronic Qualifiers: Hemiparesis etiology: late effect of cerebrovascular disease Cerebrovascular disease type: other Hemiparesis laterality: right dominant side Qualified Code(s): I69.851 - Hemiplegia and hemiparesis following other cerebrovascular disease affecting right dominant side Comment: R hemiparesis due to Glioblstoma, Plan: Cotninue OT/PT (3) DVT (deep venous thrombosis): Status: Chronic Qualifiers: DVT location: lower extremity Affected thrombotic vein of extremity: femoral Chronicity: acute Laterality: right Qualified Code(s): I82.411 - Acute embolism and thrombosis of right femoral vein Comment: Diagnosed on 01/10/2025, on Eliquis. Plan: To continue Eliquis 5mg bid. Orders: Orders Brain W/WO Contrast Today C71.9 - Malignant neoplasm of brain, unspecified, R29.6 - Repeated falls,R51.9 - Headache, unspecified Plan RTO in 2 weeks, labs prior and in 4 weeks to consider for cycle 5 temodar. 04/01/25 1520 h CAMPAIGN COORDINATOR CAMPAIGN COORDINATOR-C> Date _ Vielka Lane NP CAMPAIGN COORDINATOR-C Cosigner Signature: Date (if applicable) CC: ~ [facility]06-16-2025 Progress note Author Vielka Lane [facility] Note Date/Time April 01, 2025 3:20 pm [facility] [address] [address] OFFICE VISIT Date of Service: 04/01/25 1420 MR#: [id number] Acct: [id number] Name: LAMINE JOSEPH Rep #: [id number] : 1975 From: Vielka Bennett CAMPAIGN COORDINATOR CAMPAIGN COORDINATOR-C Age/Sex: 49/M Location: [facility] [place] Status: Signed HPI Subjective Date of Service 04/01/25 Chief Complaint Glioblastoma on treatment History of Present Illness 49 y.o.man presented with general weakness to [facility] ER. Brain CT on 09/13/2024 showed frontal lobe mass involving right and left cerebrum. He was transferred to [facility]. CT of the chest abdomen and pelvis on 09/14/2024 did not show any evidence of primary cancer. MRI of the brain on 09/14/2024 showed intraparenchymal mass crossing the midline at the corpus callosum involving bilateral frontal lobes and left basal ganglia/thalamus/cerebral peduncle consistent with multifocal glioblastoma measuring up to 5 cm. He underwent right frontal stereotactic brain biopsy on 09/21/2024. Pathology showed glioblastoma, IDH 1 wild-type. Tumor was considered unresectable so he was now referred for treatment with chemotherapy Temodar and radiation therapy. He developed weakness of his right upper extremity and right lower extremity. He is taking Decadron 2 mg daily. He started Radiation and Temodar 180mg PO daily on 10/29/24. Finished therapy on 12/07/2024. He started Temodar 300mg x 5 on 01/07/2025. 02/04/25: Cycle 2 Temodar 450 mg daily 1-5/28 day cycle. MRI brain on 02/13/2025 showed Multifocal Glioblastoma-stable disease. Interval History Patient is presenting to clinic today accompanied by spouse for an evaluation anticipating he will be given cycle 4 Temodar 450 mg days 1 through 5. He is predmedicating with zofran 8 mg prior to taking temodar. No nausea. Confirms he does have Temodar in his possession to begin. Reports he fell this morning in this morning in the kitchen while cooking breakfast. He was able to help Fell yesterday outside on uneven grassy area, spouse attributes recent falls to increased fatigue. When he's tired, he doesn't walk well. Neither episode caused injury. C/o headache, right frontal daily upon waking. Dissipates over the course of themorning without intervention. No vision changes, N/V. Meets with OT/PT weekly. [facility] Medical History Pneumonia Headache Long-term current use of steroids Encounter for education Need for pneumocystis prophylaxis Status post stereotactic brain biopsy Glioblastoma multiforme History of traumatic brain injury Family History Father Parkinson's disease Social History Smoking Status: Never smoker alcohol intake: current alcohol intake frequency: holidays/special occasions only substance use type: does not use ROS ROS Narrative Negative except as documented in the interval HPI Intake Vital Signs 03/18/25 15:00 04/01/25 14:21 Height 6 ft 1 in 6 ft 1 in Weight: 251 lb 4 oz 248 lb BMI 33.1 32.7 BP 124/76 H 118/80 Blood Pressure Location Lt brachial Lt brachial Position Sitting Sitting Respiration 16 16 Pulse 77 85 Pulse Source Monitor Monitor Temp 97.3 F L 98.2 F Temperature Source Temporal Artery Temporal Artery Pulse Oximetry (%) 93 96 Oxygen Delivery Method room air room air Intake Dog Behaviorist Required: No Accompanied by: Self Is patient in pain?: No Allergies No Known Allergies Allergy (Verified 04/01/25 14:26) Medications ?Medication ?Instructions ?Recorded ?Confirmed ?Type acetaminophen 325 mg tablet 325 mg PO ONCE PRN 4 04/01/25 History (Tylenol) docusate sodium 100 mg capsule 100 mg PO QDAY PRN 09/1704/01/25 History ondansetron 4 mg disintegrating 4 mg PO Q8H PRN nausea and 10/23/24 04/01/25 Rx tablet vomiting #30 tabs apixaban 5 mg tablet (Eliquis) 5 mg PO BID #60 tabs 04/01/25 Rx sennosides 8.6 mg-docusate sodium 2 tab-cap (2 x 8.6-5 0 mg) PO QHS 01/29/25 04/01/25 Rx 50 mg capsule (Senna Plus) 30 days #60 caps dexamethasone 2 mg tablet 2 mg PO QDAY #30 tabs 04/01/25 Rx temozolomide 100 mg capsule 200 mg PO QDAY 04/01/25 History temozolomide 250 mg capsule 250 mg PO QDAY 04/01/25 History Central Venous Access Central Venous Access: No Laboratory Tests 04/01/25 13:58 WBC 14.3 H Hgb 15.6 Hct 46.3 Plt Count 192 Absolute Neuts (auto) 12.4 H Sodium 139 Potassium 3.5 Chloride 105 Carbon Dioxide 18.2 L BUN 18 Creatinine 1.08 Glucose 134 H Calcium 9.3 Total Bilirubin 0.26 AST 18 ALT 33 Alkaline Phosphatase 53 Albumin 3.8 Exam Physical Exam Narrative ECOG 2-3, wheelchair Const alert, oriented x3 and no apparent distress General Appearance: cooperative HEENT normocephalic and head/scalp atraumatic Eyes Eyes Narrative: wears glasses General Eye: normal appearance of both eyes Neck no lymphadenopathy Resp normal respiratory effort and clear to auscultation bilaterally Cardio regular rate, regular rhythm, S1 normal heart sound and S2 normal heart sound GI normal to inspection, nondistended, normoactive bowel sounds and soft to palpation Back/Spine no CVA tenderness and no thoracic nor lumbar tenderness Extremity no clubbing, cyanosis or edema Skin no rashes or lesions noted Neuro oriented x3 and CN's II-XII intact bilaterally Neuro Narrative: Right hemiparesis Psych Attitude: calm and engaged Attention / Concentration: attention grossly intact and concentration grossly intact Coding Level of Care Code Off vis,est,level 4 Exam Problem Focused Diagnoses Glioblastoma multiforme C71.9 Hemiparesis of right dominant side as late effect of other cerebrovascular disease I69.851 Hemiparesis etiology: late effect of cerebrovascular disease Cerebrovascular disease type: other Hemiparesis laterality: right dominant side Acute deep vein thrombosis (DVT) of femoral vein of right lower extremity I82.411 DVT location: lower extremity Affected thrombotic vein of extremity: femoral Chronicity: acute Laterality: right Assessment and Plan Assessment and Plan (1) Glioblastoma multiforme: Status: Chronic Comment: Glioblastoma involving right and left frontal lobes, IDH wild-type, status post Stereotactic brain biopsy on 09/21/2024, inoperable, involving both right and left frontal lobes. He now has residual weakness on the right side. Radiation and Temodar 180mg on 10/29/2024- 12/09/24. Started Temodar 350mg daily x 5 on 01/07/2025. MRI 02/13/2025 reviewed, Slight increase in tumors, not significant for progressive disease. Plan: Commence with c4 temodar, 450 mg days 1-5 today. Request MRI brain wwo now to address new reports of daily, persistent headache and frequent falls. (2) Hemiparesis: Status: Chronic Qualifiers: Hemiparesis etiology: late effect of cerebrovascular disease Cerebrovascular disease type: other Hemiparesis laterality: right dominant side Qualified Code(s): I69.851 - Hemiplegia and hemiparesis following other cerebrovascular disease affecting right dominant side Comment: R hemiparesis due to Glioblstoma, Plan: [facility] OT/PT (3) DVT (deep venous thrombosis): Status: Chronic Qualifiers: DVT location: lower extremity Affected thrombotic vein of extremity: femoral Chronicity: acute Laterality: right Qualified Code(s): I82.411 - Acute embolism and thrombosis of right femoral vein Comment: Diagnosed on 01/10/2025, on Eliquis. Plan: To continue Eliquis 5mg bid. Orders: Orders Brain W/WO Contrast Today C71.9 - Malignant neoplasm of brain, unspecified, R29.6 - Repeated falls, R51.9 - Headache, unspecified Plan RTO in 2 weeks, labs prior and in 4 weeks to consider for cycle 5 temodar. 04/01/25 1520 <Electronically signed by Vielka skaggs NP CAMPAIGN COORDINATOR-C> Date _ Vielka Lane NP CAMPAIGN COORDINATOR-C Cosigner Signature: Date (if applicable) CC: ~ [employer] Work Phone: 1(198) 815-590805-19-2025 Progress [facility] [address] [address] OFFICE VISIT Date of Service: 03/04/2509 MR#: [id number] Acct: [id number] Name: LAMINE JOSEPH Rep #: [id number] : 1975 From: Geoff Dallas MD Age/Sex: 49/M Location: [facility] [place] Status: Signed HPI Subjective Date of Service 03/04/25 Chief Complaint Glioblasoma on treatment History of Present Illness 49 y.o.man presented with general weakness to [facility] ER. Brain CT on 09/13/2024 showed frontal lobe mass involving right and left cerebrum. He was transferred to [facility]. CT of the chest abdomen andpelvis on 09/14/2024 did not show any evidence of primary cancer. MRI of the brain on 09/14/2024 showed intraparenchymal mass crossing the midline at the corpus callosum involving bilateral frontal lobes and left basal ganglia/thalamus/cerebral peduncle consistent with multifocal glioblastoma measuring up to 5 cm. He underwent right frontal stereotactic brain biopsy on 09/21/2024. Pathology showedglioblastoma, IDH 1 wild-type. Tumor was considered unresectable so he was now referred for treatment with chemotherapy Temodar and radiation therapy. He developed weakness of his right upper extremity and right lower extremity. He is taking Decadron 2 mg daily. He started Radiation and Temodar 180mg PO daily on 10/29/24. Finished therapy on 12/07/2024. He started Temodar 300mg x 5 on 01/07/2025. Developed R sided abdominal pain, was in ER, CT scan on 01/17/2025 wasnegative. Got C2 on 02/04/2025 x 5 days. MRI brain on 02/13/2025 showed MultifocalGlioblastoma-stable disease. Comes for follow up/C3. Feels well, has R sided weakness which is worse than before. [facility] Medical History Pneumonia Headache Long-term current use of steroids Encounter for education Need for pneumocystis prophylaxis Status post stereotactic brain biopsy Glioblastoma multiforme History of traumatic brain injury Family History Father Parkinson's disease Social History Smoking Status: Never smoker alcohol intake: current alcohol intake frequency: holidays/special occasions only substance use type: does not use Intake Vital Signs 02/25/25 14:08 03/04/25 09:11 Height 6 ft 1 in 6 ft 1 in Weight: 115.751 kg BMI 33.6 BP 129/83 H Blood Pressure Location Lt brachial Position Sitting Respiration 18 Pulse 71 Pulse Source Monitor Temp 97.4 F L Temperature Source Temporal Artery Pulse Oximetry (%) 96 Oxygen Delivery Method room air Intake Is patient in pain?: No Allergies No Known Allergies Allergy (Verified 03/04/25 09:14) Medications ?Medication ?Instructions ?Recorded ?Confirmed ?Type acetaminophen 325 mg tablet 325 mg PO ONCE PRN 4 03/04/25 History (Tylenol) docusate sodium 100 mg capsule 100 mg PO QDAY PRN 09/1703/04/25 History ondansetron 4 mg disintegrating 4 mg PO Q8H PRN nausea and 10/23/24 03/04/25 Rx tablet vomiting #30 tabs omeprazole 20 mg capsule,delayed 20 mg PO QDAY #30 cap s 10/29/24 03/04/25 Rx release temozolomide 180 mg capsule 180 mg PO QDAY 11/30/24 History dexamethasone 2 mg tablet 2 mg PO QDAY 01/10/25 History apixaban 5 mg tablet (Eliquis) 5 mg PO BID #60 tabs 03/04/25 Rx sennosides 8.6 mg-docusate sodium 2 tab-cap (2 x 8.6-5 0 mg) PO QHS 01/29/25 03/04/25 Rx 50 mg capsule (Senna Plus) 30 days #60 caps levofloxacin 750 mg tablet 750 mg PO Q24H #10 tabs 03/04/25 Rx Central Venous Access Central Venous Access: No Exam Physical Exam Const alert, oriented x3 and no apparent distress HEENT normocephalic, external ears normal and external nose normal Eyes no scleral icterus Neck supple Lymph Lymphatic: no lymphadenopathy noted Resp normal respiratory effort and clear to auscultation bilaterally Cardio regular rate, regular rhythm, S1 normal heart sound, S2 normal heart sound and no murmurs GI soft to palpation and non-tender Back/Spine thoracic and lumbar spine normal to inspection Extremity Extremity Narrative: +R lower extremity edema-improving Skin no rashes or lesions noted Neuro oriented x3 and CN's II-XII intact bilaterally Neuro Narrative: + weakness R side-power 3/5 upper extremity, 1/5 lower extremity.. 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 I69.851 Hemiparesis etiology: late effect of cerebrovascular disease Cerebrovascular disease type: other Hemiparesis laterality: right dominant side Acute deep vein thrombosis (DVT) of femoral vein of right lower extremity I82.411 DVT location: lower extremity Affected thrombotic vein of extremity: femoral Chronicity: acute Laterality: right Assessment and Plan Assessment and Plan (1) Glioblastoma multiforme: Status: Chronic Comment: Glioblastoma involving right and left frontal lobes, IDH wild-type, status post Stereotactic brain biopsy on 09/21/2024, inoperable, involving both right and left frontal lobes. He now has residual weakness on the right side. Radiation and Temodar 180mg on 10/29/2024- 12/09/24. Started Temodar 350mg daily x 5 on 01/07/2025. Comes for follow up. MRI 02/13/2025 reviewed, Slight increase in tumors, not significant for progressive disease. Comes for C3. Counts and chemistry reviewed and OK for therapy. Plan: To proceed with C3 Temodar 200mg/v1=584ny daily x 5 from 03/04/2025. RTC 2 week. (2) Hemiparesis: Status: Chronic Qualifiers: Hemiparesis etiology: late effect of cerebrovascular disease Cerebrovascular disease type: other Hemiparesis laterality: right dominant side Qualified Code(s): I69.851 - Hemiplegia and hemiparesis following other cerebrovascular disease affecting right dominant side Comment: R hemiparesis due to Glioblstoma, reportedly getting worse. Plan: To Proceed with PT (3) DVT (deep venous thrombosis): Status: Acute Qualifiers: DVT location: lower extremity Affected thrombotic vein of extremity: femoral Chronicity: acute Laterality: right Qualified Code(s): I82.411 - Acute embolism and thrombosis of right femoral vein Comment: Diagnosed on 01/10/2025, on Eliquis. Doppler on 02/25/2025 reviewed, Clot is decreasing. Plan: To continue Eliquis 5mg bid. Plan Details Follow Up: 2 Weeks 03/04/25 0951 D> Date _ [facility] Signature: Date (if applicable) CC: ~ [facility]05-19-2025 Progress note Author eGoff Dallas [facility] Note Date/Time March 04, 2025 9:51a m [facility] [place] [address] OFFICE VISIT Date of Service: 03/04/25 0909 MR#: [id number] Acct: [id number] Name: LAMINE JOSEPH Rep #: [id number] : 1975 From: Geoff Dallas MD Age/Sex: 49/M Location: [facility] [place] Status: Signed HPI Subjective Date of Service 03/04/25 Chief Complaint Glioblasoma on treatment History of Present Illness 49 y.o.man presented with general weakness to [facility] ER. Brain CT on 09/13/2024 showed frontal lobe mass involving right and left cerebrum. He was transferred to [facility]. CT of the chest abdomen and pelvis on 09/14/2024 did not show any evidence of primary cancer. MRI of the brain on 09/14/2024 showed intraparenchymal mass crossing the midline at the corpus callosum involving bilateral frontal lobes and left basal ganglia/thalamus/cerebral peduncle consistent with multifocal glioblastoma measuring up to 5 cm. He underwent right frontal stereotactic brain biopsy on 09/21/2024. Pathology showed glioblastoma, IDH 1 wild-type. Tumor was considered unresectable so he was now referred for treatment with chemotherapy Temodar and radiation therapy. He developed weakness of his right upper extremity and right lower extremity. He is taking Decadron 2 mg daily. He started Radiation and Temodar 180mg PO daily on 10/29/24. Finished therapy on 12/07/2024. He started Temodar 300mg x 5 on 01/07/2025. Developed R sided abdominal pain, was in ER, CT scan on 01/17/2025 wasnegative. Got C2 on 02/04/2025 x 5 days. MRI brain on 02/13/2025 showed MultifocalGlioblastoma-stable disease. Comes for follow up/C3. Feels well, has R sided weakness which is worse than before. [facility] Medical History Pneumonia Headache Long-term current use of steroids Encounter for education Need for pneumocystis prophylaxis Status post stereotactic brain biopsy Glioblastoma multiforme History of traumatic brain injury Family History Father Parkinson's disease Social History Smoking Status: Never smoker alcohol intake: current alcohol intake frequency: holidays/special occasions only substance use type: does not use Intake Vital Signs 02/25/25 14:08 03/04/25 09:11 Height 6 ft 1 in 6 ft 1 in Weight: 115.751 kg BMI 33.6 BP 129/83 H Blood Pressure Location Lt brachial Position Sitting Respiration 18 Pulse 71 Pulse Source Monitor Temp 97.4 F L Temperature Source Temporal Artery Pulse Oximetry (%) 96 Oxygen Delivery Method room air Intake Is patient in pain?: No Allergies No Known Allergies Allergy (Verified 03/04/25 09:14) Medications ?Medication ?Instructions ?Recorded ?Confirmed ?Type acetaminophen 325 mg tablet 325 mg PO ONCE PRN 4 03/04/25 History (Tylenol) docusate sodium 100 mg capsule 100 mg PO QDAY PRN 09/1703/04/25 History ondansetron 4 mg disintegrating 4 mg PO Q8H PRN nausea and 10/23/24 03/04/25 Rx tablet vomiting #30 tabs omeprazole 20 mg capsule,delayed 20 mg PO QDAY #30 cap s 10/29/24 03/04/25 Rx release temozolomide 180 mg capsule 180 mg PO QDAY 11/30/24 History dexamethasone 2 mg tablet 2 mg PO QDAY 01/10/25 History apixaban 5 mg tablet (Eliquis) 5 mg PO BID #60 tabs 03/04/25 Rx sennosides 8.6 mg-docusate sodium 2 tab-cap (2 x 8.6-5 0 mg) PO QHS 01/29/25 03/04/25 Rx 50 mg capsule (Senna Plus) 30 days #60 caps levofloxacin 750 mg tablet 750 mg PO Q24H #10 tabs 03/04/25 Rx Central Venous Access Central Venous Access: No Exam Physical Exam Const alert, oriented x3 and no apparent distress HEENT normocephalic, external ears normal and external nose normal Eyes no scleral icterus Neck supple Lymph Lymphatic: no lymphadenopathy noted Resp normal respiratory effort and clear to auscultation bilaterally Cardio regular rate, regular rhythm, S1 normal heart sound, S2 normal heart sound and no murmurs GI soft to palpation and non-tender Back/Spine thoracic and lumbar spine normal to inspection Extremity Extremity Narrative: +R lower extremity edema-improving Skin no rashes or lesions noted Neuro oriented x3 and CN's II-XII intact bilaterally Neuro Narrative: + weakness R side-power 3/5 upper extremity, 1/5 lower extremity.. 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 I69.851 Hemiparesis etiology: late effect of cerebrovascular disease Cerebrovascular disease type: other Hemiparesis laterality: right dominant side Acute deep vein thrombosis (DVT) of femoral vein of right lower extremity I82.411 DVT location: lower extremity Affected thrombotic vein of extremity: femoral Chronicity: acute Laterality: right Assessment and Plan Assessment and Plan (1) Glioblastoma multiforme: Status: Chronic Comment: Glioblastoma involving right and left frontal lobes, IDH wild-type, status post Stereotactic brain biopsy on 09/21/2024, inoperable, involving both right and left frontal lobes. He now has residual weakness on the right side. Radiation and Temodar 180mg on 10/29/2024- 12/09/24. Started Temodar 350mg daily x 5 on 01/07/2025. Comes for follow up. MRI 02/13/2025 reviewed, Slight increase in tumors, not significant for progressive disease. Comes for C3. Counts and chemistry reviewed and OK for therapy. Plan: To proceed with C3 Temodar 200mg/w6=445vo daily x 5 from 03/04/2025. RTC 2 week. (2) Hemiparesis: Status: Chronic Qualifiers: Hemiparesis etiology: late effect of cerebrovascular disease Cerebrovascular disease type: other Hemiparesis laterality: right dominant side Qualified Code(s): I69.851 - Hemiplegia and hemiparesis following other cerebrovascular disease affecting right dominant side Comment: R hemiparesis due to Glioblstoma, reportedly getting worse. Plan: To Proceed with PT (3) DVT (deep venous thrombosis): Status: Acute Qualifiers: DVT location: lower extremity Affected thrombotic vein of extremity: femoral Chronicity: acute Laterality: right Qualified Code(s): I82.411 - Acute embolism and thrombosis of right femoral vein Comment: Diagnosed on 01/10/2025, on Eliquis. Doppler on 02/25/2025 reviewed, Clot is decreasing. Plan: To continue Eliquis 5mg bid. Plan Details Follow Up: 2 Weeks 03/04/25 0951 <Electronically signed by Geoff Lyle> Date _ Geoff Dallas MD Cosigner Signature: Date (if applicable) CC: ~ [employer] Work Phone: 1([phone]) 689-698105-12-2025 Evaluation note* Diagnosis Onset Date Resolution Status Admit Date DVT (deep venous thrombosis) chronic February 25, 2025 2:01pm Glioblastoma multiforme chronic [facility] 2024 2:01pm Hemiparesis chronic February 25 2:01pm DVT (deep venous thrombosis) chronic March 04, 2025 8:21am Glioblastoma multiforme chronic [facility] 2024 8:21am Hemiparesis chronic March 04 8:21am DVT (deep venous thrombosis) chronic March 18, 2025 2:15pm Glioblastoma multiforme [facility] 2024 2:15pm Hemiparesis chronic March 18 2:15pm DVT (deep venous thrombosis) chronic April 01, 2025 1:53pm Glioblastoma multiforme chronic [facility] 2024 1:53pm Hemiparesis chronic April 01 1:53pm DVT (deep venous thrombosis) chronic April 15, 2025 2:54pm Glioblastoma multiforme chronic [facility] 2024 2:54pm Hemiparesis chronic April 15 2:54pm Encounter for insertion of venous access port acute April 17 10:11am DVT (deep venous thrombosis) chronic April 22, 2025 9:03am Glioblastoma multiforme chronic [facility] 2024 9:03am Hemiparesis chronic April 22 9:03am Chemotherapy management, encounter for acute May 08, 2025 8:21am Encounter for monoclonal antibody treatment for malignancy acute May 08, 2025 8:21am Swelling of left lower extremity acute May 08, 2025 8:21am DVT (deep venous thrombosis) chronic May 08, 2025 8:21am Glioblastoma multiforme chronic [facility] 2024 8:21am Hemiparesis chronic May 08 8:21am Chemotherapy management, encounter for acute May 22, 2025 8:24am Encounter for monoclonal antibody treatment for malignancy acute May 22, 2025 8:24am DVT (deep venous thrombosis) chronic May 22, 2025 8:24am Glioblastoma multiforme chronic [facility] 2024 8:24am Hemiparesis chronic May 22, 025 8:24am Chemotherapy management, encounter for acute June 05 9:18am Encounter for monoclonal antibody treatment for malignancy acute June 05 9:18am DVT (deep venous thrombosis) chronic June 05, 2025 9:18am Glioblastoma multiforme chronic [facility] 2024 9:18am Hemiparesis chronic June 05, 2025 9:18am Chemotherapy management, encounter for acute June 19 025 9:01am Encounter for monoclonal antibody treatment for malignancy acute June 19 9:01am DVT (deep venous thrombosis) chronic June 19, 2025 9:01am Glioblastoma multiforme chronic S eptember 2024 9:01am Hemiparesis chronic June 9:01am [facility] Work Phone: 1(850) 110-165204-29-2025 Evaluation note* Diagnosis Onset Date Resolution Status Admit Date Pneumonia acute February 12 2:09pm DVT (deep venous thrombosis) chronic February 18, 2025 3:27pm Glioblastoma multiforme chronic M ay 2024 3:27pm Hemiparesis chronic February 18, 2025 3:27pm DVT (deep venous thrombosis) chronic February 25, 2025 2:01pm Glioblastoma multiforme chronic M ay 2024 2:01pm Hemiparesis chronic February 25 2:01pm DVT (deep venous thrombosis) chronic March 04, 2025 8:21am Glioblastoma multiforme chronic M ay 2024 8:21am Hemiparesis chronic March 04 8:21am DVT (deep venous thrombosis) chronic March 18, 2025 2:15pm Glioblastoma multiforme chronic J une 2024 2:15pm Hemiparesis chronic March 18 2:15pm DVT (deep venous thrombosis) chronic April 01, 2025 1:53pm Glioblastoma multiforme chronic J une 2024 1:53pm Hemiparesis chronic April 01 1:53pm DVT (deep venous thrombosis) chronic April 15, 2025 2:54pm Glioblastoma multiforme chronic J une 2024 2:54pm Hemiparesis chronic April 15 2:54pm Encounter for insertion of venous access port acute April 17 10:11am DVT (deep venous thrombosis) chronic April 22, 2025 9:03am Glioblastoma multiforme chronic [facility] 2024 9:03am Hemiparesis chronic April 22 9:03am Chemotherapy management, encounter for acute May 08, 2025 8:21am Encounter for monoclonal antibody treatment for malignancy acute May 08, 2025 8:21am Swelling of left lower extremity acute May 08, 2025 8:21am DVT (deep venous thrombosis) chronic May 08, 2025 8:21am Glioblastoma multiforme chronic [facility] 2024 8:21am Hemiparesis chronic May 08 8:21am Chemotherapy management, encounter for acute May 22, 2025 8:24am Encounter for monoclonal antibody treatment for malignancy acute May 22, 2025 8:24am DVT (deep venous thrombosis) chronic May 22, 2025 8:24am Glioblastoma multiforme chronic A ugust 2024 8:24am Hemiparesis chronic May 22, 025 8:24am Chemotherapy management, encounter for acute June 05 9:18am Encounter for monoclonal antibody treatment for malignancy acute June 05 9:18am DVT (deep venous thrombosis) chronic June 05, 2025 9:18am Glioblastoma multiforme chronic A ug[facility] 2024 9:18am Hemiparesis chronic June 05, 2025 9:18am [facility] Work Phone: 1(883) 771-932104-10-2025 Evaluation note* Diagnosis Onset Date Resolution Status Admit Date Abdominal pain acute January 3:49pm DVT (deep venous thrombosis) chronic January 24, 2025 3:49pm Glioblastoma multiforme chronic A pril 2024 3:49pm Hemiparesis chronic January 24, 2 025 3:49pm DVT (deep venous thrombosis) chronic February 04, 2025 3:24pm Glioblastoma multiforme chronic A pril 2024 3:24pm Hemiparesis chronic February 04, 2 025 3:24pm Pneumonia acute February 12 2:09pm DVT (deep venous thrombosis) chronic February 18, 2025 3:27pm Glioblastoma multiforme chronic M 2024 3:27pm Hemiparesis chronic February 18, 2025 3:27pm DVT (deep venous thrombosis) chronic February 25, 2025 2:01pm Glioblastoma multiforme chronic M ay 2024 2:01pm Hemiparesis chronic February 25 2:01pm DVT (deep venous thrombosis) chronic March 04, 2025 8:21am Glioblastoma multiforme chronic M ay 2024 8:21am Hemiparesis chronic March 04 8:21am DVT (deep venous thrombosis) chronic March 18, 2025 2:15pm Glioblastoma multiforme chronic J [facility] 2024 2:15pm Hemiparesis chronic March 18 2:15pm DVT (deep venous thrombosis) chronic April 01, 2025 1:53pm Glioblastoma multiforme chronic J une 2024 1:53pm Hemiparesis chronic April 01 1:53pm DVT (deep venous thrombosis) chronic April 15, 2025 2:54pm Glioblastoma multiforme chronic J une 2024 2:54pm Hemiparesis chronic April 15 2:54pm Encounter for insertion of venous access port acute April 17 10:11am DVT (deep venous thrombosis) chronic April 22, 2025 9:03am Glioblastoma multiforme chronic J [employer] 2024 9:03am Hemiparesis chronic April 22 9:03am Chemotherapy management, encounter for acute May 08, 2025 8:21am Encounter for monoclonal antibody treatment for malignancy acute May 08, 2025 8:21am Swelling of left lower extremity acute May 08, 2025 8:21am DVT (deep venous thrombosis) chronic May 08, 2025 8:21am Glioblastoma multiforme chronic J [employer]sales 2024 8:21am Hemiparesis chronic May 08 8:21am [facility] Work Phone: [phone] 439-283704-10-2025 Evaluation note* Diagnosis Onset Date Resolution Status Admit Date Abdominal pain acute January 3:49pm DVT (deep venous thrombosis) chronic January 24, 2025 3:49pm Glioblastoma multiforme chronic A pril 2024 3:49pm Hemiparesis chronic January 24, 2 025 3:49pm DVT (deep venous thrombosis) chronic February 04, 2025 3:24pm Glioblastoma multiforme chronic A pril 2024 3:24pm Hemiparesis chronic February 04, 2 025 3:24pm Pneumonia acute February 12 2:09pm DVT (deep venous thrombosis) chronic February 18, 2025 3:27pm Glioblastoma multiforme chronic M ay 2024 3:27pm Hemiparesis chronic February 18, 2025 3:27pm DVT (deep venous thrombosis) chronic February 25, 2025 2:01pm Glioblastoma multiforme chronic M ay 2024 2:01pm Hemiparesis chronic February 25 2:01pm DVT (deep venous thrombosis) chronic March 04, 2025 8:21am Glioblastoma multiforme chronic M ay 2024 8:21am Hemiparesis chronic March 04 8:21am DVT (deep venous thrombosis) chronic March 18, 2025 2:15pm Glioblastoma multiforme chronic J une 2024 2:15pm Hemiparesis chronic March 18 2:15pm DVT (deep venous thrombosis) chronic April 01, 2025 1:53pm Glioblastoma multiforme chronic J une 2024 1:53pm Hemiparesis chronic April 01 1:53pm DVT (deep venous thrombosis) chronic April 15, 2025 2:54pm Glioblastoma multiforme chronic J une 2024 2:54pm Hemiparesis chronic April 15 2:54pm Encounter for insertion of venous access port acute April 17 10:11am DVT (deep venous thrombosis) chronic April 22, 2025 9:03am Glioblastoma multiforme chronic J [employer]sales 2024 9:03am Hemiparesis chronic April 22 9:03am Chemotherapy management, encounter for acute May 08, 2025 8:21am Encounter for monoclonal antibody treatment for malignancy acute May 08, 2025 8:21am Swelling of left lower extremity acute May 08, 2025 8:21am DVT (deep venous thrombosis) chronic May 08, 2025 8:21am Glioblastoma multiforme chronic J [employer]sales 2024 8:21am Hemiparesis chronic May 08 8:21am Chemotherapy management, encounter for acute May 22, 2025 8:24am Encounter for monoclonal antibody treatment for malignancy acute May 22, 2025 8:24am DVT (deep venous thrombosis) chronic May 22, 2025 8:24am Glioblastoma multiforme chronic A ugust 2024 8:24am Hemiparesis chronic May 22, 025 8:24am [facility] Work Phone: [phone] 150-648504-03-2025 Radiology Diagnostic study note [facility] Imaging Services [address] [place] [id number] Abdomen/Pelvis W IV Cont ONLY MR#: [id number] Acct: [id number] Name: LAMINE JOSEPH Rep #: [id number] : 1975 M 49 From: Yifan Sloan MD PCP: Care Physician,No Primary Status: REG ER Study:Abdomen/Pelvis W IV Cont ONLY Date of E xam: 01/17/25 Exam# [id number] Ordering Dr: Ye Osorio DO PROCEDURE: ABDOMEN/PELVIS W IV CONT ONLY 01/17/2025 REASON FOR EXAM: RIGHT FLANK PAIN TECHNIQUE: Abdomen and pelvis CT with intravenous contrast. Coronal and Sagittal reconstruction series were provided. PATIENT PREPARATION: Per protocol ORAL CONTRAST TYPE: None. CONTRAST: Isovue-300 VOLUME: 76 mL Gauge IV One or more dose reduction techniques were used (e.g., Automated exposure control, adjustment of the mA and/or kV according to patient size, use of iterative reconstruction technique. RADIATION DOSE SUMMARY: CTDlvol: 17.5 mGy DLP: 1453.69 mGycm COMPARISON: None FINDINGS: Lung bases: Minimal bilateral pleural effusions slightly greater on the right side. Increased markings at the lung bases suggestive of either atelectasis and/or early infiltrate. Liver: Normal size. No mass. Gallbladder: Unremarkable Spleen: Normal size. Pancreas: Normal size without evidence of mass surrounding inflammation or ductal dilation. Adrenals: Unremarkable Kidneys: Normal renal sizes. No hydronephrosis. Bladder: Unremarkable Bilateral inguinal hernias containing fat right greater than left. Small umbilical hernia. Bowel: No bowel obstruction. Appendix: Unremarkable Lymph nodes: No suspicious lymph node enlargement. Vasculature: Mild diffuse atherosclerotic calcifications are noted. Peritoneum / Retroperitoneum: Unremarkable Bones: Loss of the normal lumbar lordosis. CT/Abdomen/Pelvis W IV Cont ONLY IMPRESSION: Small umbilical hernia and bilateral inguinal hernias containing fat right greater than left. Minimal bilateral pleural effusions with bibasilar atelectasis and/or early infiltrate. Reading Location: [place] [address] CC: Dr. Ye Sparks ; No Primary Care Physician ~ Bird Tender: Signed [facility]03-27-2025 Evaluation note* Diagnosis Onset Date Resolution Status Admit Date Edema leg chronic January 10 2:15pm Glioblastoma multiforme chronic M arch 2024 2:15pm Hemiparesis chronic January 10, 2 025 2:15pm Glioblastoma multiforme chronic M arch 2024 2:16pm Abdominal pain acute January 3:49pm DVT (deep venous thrombosis) chronic January 24, 2025 3:49pm Glioblastoma multiforme chronic A pri2024 3:49pm Hemiparesis chronic January 24, 2 025 3:49pm DVT (deep venous thrombosis) chronic February 04, 2025 3:24pm Glioblastoma multiforme chronic A pril 2024 3:24pm Hemiparesis chronic February 04, 2 025 3:24pm Pneumonia acute February 12 2:09pm DVT (deep venous thrombosis) chronic February 18, 2025 3:27pm Glioblastoma multiforme chronic M ay 2024 3:27pm Hemiparesis chronic February 18, 2025 3:27pm DVT (deep venous thrombosis) chronic February 25, 2025 2:01pm Glioblastoma multiforme chronic M ay 2024 2:01pm Hemiparesis chronic February 25 2:01pm DVT (deep venous thrombosis) chronic March 04, 2025 8:21am Glioblastoma multiforme chronic M ay 2024 8:21am Hemiparesis chronic March 04 8:21am DVT (deep venous thrombosis) chronic March 18, 2025 2:15pm Glioblastoma multiforme chronic J une 2024 2:15pm Hemiparesis chronic March 18 2:15pm DVT (deep venous thrombosis) chronic April 01, 2025 1:53pm Glioblastoma multiforme chronic J une 2024 1:53pm Hemiparesis chronic April 01 1:53pm [facility] Work Phone: [phone] 593-625403-27-2025 Evaluation note* Diagnosis Onset Date Resolution Status Admit Date Edema leg chronic January 10 2:15pm Glioblastoma multiforme chronic M arch 2024 2:15pm Hemiparesis chronic January 10, 2 025 2:15pm Glioblastoma multiforme chronic M arch 2024 2:16pm Abdominal pain acute January 3:49pm DVT (deep venous thrombosis) chronic January 24, 2025 3:49pm Glioblastoma multiforme chronic A pril 2024 3:49pm Hemiparesis chronic January 24, 2 025 3:49pm DVT (deep venous thrombosis) chronic February 04, 2025 3:24pm Glioblastoma multiforme chronic A pril 2024 3:24pm Hemiparesis chronic February 04, 2 025 3:24pm Pneumonia acute February 12 2:09pm DVT (deep venous thrombosis) chronic February 18, 2025 3:27pm Glioblastoma multiforme chronic M ay 2024 3:27pm Hemiparesis chronic February 18, 2025 3:27pm DVT (deep venous thrombosis) chronic February 25, 2025 2:01pm Glioblastoma multiforme chronic M ay 2024 2:01pm Hemiparesis chronic February 25 2:01pm DVT (deep venous thrombosis) chronic March 04, 2025 8:21am Glioblastoma multiforme chronic M ay 2024 8:21am Hemiparesis chronic March 04 8:21am DVT (deep venous thrombosis) chronic March 18, 2025 2:15pm Glioblastoma multiforme chronic J une 2024 2:15pm Hemiparesis chronic March 18 2:15pm DVT (deep venous thrombosis) chronic April 01, 2025 1:53pm Glioblastoma multiforme chronic J une 2024 1:53pm Hemiparesis chronic April 01 1:53pm DVT (deep venous thrombosis) chronic April 15, 2025 2:54pm Glioblastoma multiforme chronic J une 2024 2:54pm Hemiparesis chronic April 15 2:54pm [facility] [employer] [facility] Work Phone: 1(354) 341-818603-27-2025 Evaluation note* Diagnosis Onset Date Resolution Status Admit Date Edema leg chronic January 10 2:15pm Glioblastoma multiforme chronic M arch 2024 2:15pm Hemiparesis chronic January 10, 2 025 2:15pm Glioblastoma multiforme chronic M arch 2024 2:16pm Abdominal pain acute January 3:49pm DVT (deep venous thrombosis) chronic January 24, 2025 3:49pm Glioblastoma multiforme chronic A pri2024 3:49pm Hemiparesis chronic January 24, 2 025 3:49pm DVT (deep venous thrombosis) chronic February 04, 2025 3:24pm Glioblastoma multiforme chronic A pril 2024 3:24pm Hemiparesis chronic February 04, 2 025 3:24pm Pneumonia acute February 12 2:09pm DVT (deep venous thrombosis) chronic February 18, 2025 3:27pm Glioblastoma multiforme chronic M ay 2024 3:27pm Hemiparesis chronic February 18, 2025 3:27pm DVT (deep venous thrombosis) chronic February 25, 2025 2:01pm Glioblastoma multiforme chronic M ay 2024 2:01pm Hemiparesis chronic February 25 2:01pm DVT (deep venous thrombosis) chronic March 04, 2025 8:21am Glioblastoma multiforme chronic M ay 2024 8:21am Hemiparesis chronic March 04 8:21am DVT (deep venous thrombosis) chronic March 18, 2025 2:15pm Glioblastoma multiforme chronic J une 2024 2:15pm Hemiparesis chronic March 18 2:15pm DVT (deep venous thrombosis) chronic April 01, 2025 1:53pm Glioblastoma multiforme chronic J une 2024 1:53pm Hemiparesis chronic April 01 1:53pm DVT (deep venous thrombosis) chronic April 15, 2025 2:54pm Glioblastoma multiforme chronic J une 2024 2:54pm Hemiparesis chronic April 15 2:54pm Encounter for insertion of venous access port acute April 17 10:11am DVT (deep venous thrombosis) chronic April 22, 2025 9:03am Glioblastoma multiforme chronic J [employer] 2024 9:03am Hemiparesis chronic April 22 9:03am [facility] Work Phone: 1([phone]) 517-266703-27-2025 Evaluation note* Diagnosis Onset Date Resolution Status Admit Date Edema leg chronic January 10 2:15pm Glioblastoma multiforme chronic M arch 2024 2:15pm Hemiparesis chronic January 10, 2 025 2:15pm Glioblastoma multiforme chronic M arch 2024 2:16pm Abdominal pain acute January 3:49pm DVT (deep venous thrombosis) chronic January 24, 2025 3:49pm Glioblastoma multiforme chronic A pril 2024 3:49pm Hemiparesis chronic January 24, 2 025 3:49pm DVT (deep venous thrombosis) chronic February 04, 2025 3:24pm Glioblastoma multiforme chronic A pril 2024 3:24pm Hemiparesis chronic February 04, 2 025 3:24pm Pneumonia acute February 12 2:09pm DVT (deep venous thrombosis) chronic February 18, 2025 3:27pm Glioblastoma multiforme chronic M ay 2024 3:27pm Hemiparesis chronic February 18, 2025 3:27pm DVT (deep venous thrombosis) chronic February 25, 2025 2:01pm Glioblastoma multiforme chronic M ay 2024 2:01pm Hemiparesis chronic February 25 2:01pm DVT (deep venous thrombosis) chronic March 04, 2025 8:21am Glioblastoma multiforme chronic M ay 2024 8:21am Hemiparesis chronic March 04 8:21am DVT (deep venous thrombosis) chronic March 18, 2025 2:15pm Glioblastoma multiforme chronic J une 2024 2:15pm Hemiparesis chronic March 18 2:15pm DVT (deep venous thrombosis) chronic April 01, 2025 1:53pm Glioblastoma multiforme chronic J une 2024 1:53pm Hemiparesis chronic April 01 1:53pm DVT (deep venous thrombosis) chronic April 15, 2025 2:54pm Glioblastoma multiforme chronic J une 2024 2:54pm Hemiparesis chronic April 15 2:54pm Encounter for insertion of venous access port acute April 17 10:11am DVT (deep venous thrombosis) chronic April 22, 2025 9:03am Glioblastoma multiforme chronic J rosales 2024 9:03am Hemiparesis chronic April 22 9:03am Chemotherapy management, encounter for acute May 08, 2025 8:21am Encounter for monoclonal antibody treatment for malignancy acute May 08, 2025 8:21am Swelling of left lower extremity acute May 08, 2025 8:21am DVT (deep venous thrombosis) chronic May 08, 2025 8:21am Glioblastoma multiforme chronic J rosales 2024 8:21am Hemiparesis chronic May 08 8:21am [facility] Work Phone: [phone]) 770-655102-17-2025 Evaluation note* Diagnosis Onset Date Resolution Status Admit Date Glioblastoma multiforme chronic F ebruary 2024 2:41pm Glioblastoma multiforme chronic F ebruary 2024 2:46pm Glioblastoma multiforme chronic F ebruary 2024 1:51pm Edema leg chronic January 10 2:15pm Glioblastoma multiforme chronic M arch 2024 2:15pm Hemiparesis chronic January 10, 2 025 2:15pm Glioblastoma multiforme chronic M arch 2024 2:16pm Abdominal pain acute January 3:49pm DVT (deep venous thrombosis) chronic January 24, 2025 3:49pm Glioblastoma multiforme chronic A pril 2024 3:49pm Hemiparesis chronic January 24, 2 025 3:49pm DVT (deep venous thrombosis) chronic February 04, 2025 3:24pm Glioblastoma multiforme chronic A pril 2024 3:24pm Hemiparesis chronic February 04, 2 025 3:24pm Pneumonia acute February 12 2:09pm DVT (deep venous thrombosis) chronic February 18, 2025 3:27pm Glioblastoma multiforme chronic M ay 2024 3:27pm Hemiparesis chronic February 18, 2025 3:27pm DVT (deep venous thrombosis) chronic February 25, 2025 2:01pm Glioblastoma multiforme chronic M ay 2024 2:01pm Hemiparesis chronic February 25 2:01pm DVT (deep venous thrombosis) chronic March 04, 2025 8:21am Glioblastoma multiforme chronic M ay 2024 8:21am Hemiparesis chronic March 04 8:21am DVT (deep venous thrombosis) chronic March 18, 2025 2:15pm Glioblastoma multiforme chronic J une 2024 2:15pm Hemiparesis chronic March 18 2:15pm DVT (deep venous thrombosis) chronic April 01, 2025 1:53pm Glioblastoma multiforme chronic J une 2024 1:53pm Hemiparesis chronic April 01 1:53pm [facility] Work Phone: 1([phone]) 435-995902-10-2025 Evaluation note* Diagnosis Onset Date Resolution Status Admit Date Glioblastoma multiforme chronic F ebruary 2024 2:43pm Glioblastoma multiforme chronic F ebruary 2024 2:32pm Glioblastoma multiforme chronic F ebruary 2024 2:41pm Glioblastoma multiforme chronic F ebruary 2024 2:46pm Glioblastoma multiforme chronic F ebruary 2024 1:51pm Edema leg chronic January 10 2:15pm Glioblastoma multiforme chronic M arch 2024 2:15pm Hemiparesis chronic January 10, 2 025 2:15pm Glioblastoma multiforme chronic M arch 2024 2:16pm Abdominal pain acute January 3:49pm DVT (deep venous thrombosis) chronic January 24, 2025 3:49pm Glioblastoma multiforme chronic A pril 2024 3:49pm Hemiparesis chronic January 24, 2 025 3:49pm DVT (deep venous thrombosis) chronic February 04, 2025 3:24pm Glioblastoma multiforme chronic A pril 2024 3:24pm Hemiparesis chronic February 04, 2 025 3:24pm Pneumonia acute February 12 2:09pm DVT (deep venous thrombosis) chronic February 18, 2025 3:27pm Glioblastoma multiforme chronic M ay 2024 3:27pm Hemiparesis chronic February 18, 2025 3:27pm DVT (deep venous thrombosis) chronic February 25, 2025 2:01pm Glioblastoma multiforme chronic M ay 2024 2:01pm Hemiparesis chronic February 25 2:01pm DVT (deep venous thrombosis) chronic March 04, 2025 8:21am Glioblastoma multiforme chronic M ay 2024 8:21am Hemiparesis chronic March 04 8:21am DVT (deep venous thrombosis) chronic March 18, 2025 2:15pm Glioblastoma multiforme chronic J une 2024 2:15pm Hemiparesis chronic March 18 2:15pm [facility] Work Phone: [phone] 825-789402-03-2025 Evaluation note* Diagnosis Onset Date Resolution Status Admit Date Glioblastoma multiforme chronic F ebruary 2024 2:40pm Glioblastoma multiforme chronic F ebruary 2024 2:36pm Glioblastoma multiforme chronic F ebruary 2024 2:43pm Glioblastoma multiforme chronic F ebruary 2024 2:32pm Glioblastoma multiforme chronic F ebruary 2024 2:41pm Glioblastoma multiforme chronic F ebruary 2024 2:46pm Glioblastoma multiforme chronic F ebruary 2024 1:51pm Edema leg chronic January 10 2:15pm Glioblastoma multiforme chronic M arch 2024 2:15pm Hemiparesis chronic January 10, 025 2:15pm Glioblastoma multiforme chronic M arch 2024 2:16pm Abdominal pain acute January 3:49pm DVT (deep venous thrombosis) chronic January 24, 2025 3:49pm Glioblastoma multiforme chronic A pril 2024 3:49pm Hemiparesis chronic January 24, 2 025 3:49pm DVT (deep venous thrombosis) chronic February 04, 2025 3:24pm Glioblastoma multiforme chronic A pril 2024 3:24pm Hemiparesis chronic February 04, 2 025 3:24pm Pneumonia acute February 12 2:09pm DVT (deep venous thrombosis) chronic February 18, 2025 3:27pm Glioblastoma multiforme chronic M ay 2024 3:27pm Hemiparesis chronic February 18, 2025 3:27pm DVT (deep venous thrombosis) chronic February 25, 2025 2:01pm Glioblastoma multiforme chronic M ay 2024 2:01pm Hemiparesis chronic February 25 2:01pm DVT (deep venous thrombosis) chronic March 04, 2025 8:21am Glioblastoma multiforme chronic M ay 2024 8:21am Hemiparesis chronic March 04 8:21am DVT (deep venous thrombosis) chronic March 18, 2025 2:15pm Glioblastoma multiforme chronic J une 2024 2:15pm Hemiparesis chronic March 18 2:15pm [facility] Work Phone: [phone]) 314-421501-20-2025 Evaluation note* Diagnosis Onset Date Resolution Status Admit Date Glioblastoma multiforme chronic J anuary 2024 3:10pm Glioblastoma multiforme chronic J anuary 2024 2:44pm Glioblastoma multiforme chronic J anuary 2024 2:08pm Glioblastoma multiforme chronic J anuary 2024 2:38pm Glioblastoma multiforme chronic F ebruary 2024 2:40pm Glioblastoma multiforme chronic F ebruary 2024 2:36pm Glioblastoma multiforme chronic F ebruary 2024 2:43pm Glioblastoma multiforme chronic F ebruary 2024 2:32pm Glioblastoma multiforme chronic F ebruary 2024 2:41pm Glioblastoma multiforme chronic F ebruary 2024 2:46pm Glioblastoma multiforme chronic F ebruary 2024 1:51pm Edema leg chronic January 10 2:15pm Glioblastoma multiforme chronic M arch 2024 2:15pm Hemiparesis chronic January 10, 2 025 2:15pm Glioblastoma multiforme chronic M arch 2024 2:16pm Abdominal pain acute January 3:49pm DVT (deep venous thrombosis) acute January 24, 2025 3:49pm Glioblastoma multiforme chronic A pril 2024 3:49pm Hemiparesis chronic January 24, 2 025 3:49pm DVT (deep venous thrombosis) acute February 04, 2025 3:24pm Glioblastoma multiforme chronic A pril 2024 3:24pm Hemiparesis chronic February 04, 2 025 3:24pm Pneumonia acute February 12 2:09pm DVT (deep venous thrombosis) acute February 18, 2025 3:27pm Glioblastoma multiforme chronic M ay 2024 3:27pm Hemiparesis chronic February 18, 2025 3:27pm DVT (deep venous thrombosis) acute February 25, 2025 2:01pm Glioblastoma multiforme chronic M ay 2024 2:01pm Hemiparesis chronic February 25 2:01pm DVT (deep venous thrombosis) acute March 04, 2025 8:21am Glioblastoma multiforme chronic M ay 2024 8:21am Hemiparesis chronic March 04 8:21am [facility] Work Phone: [phone]) 864-763101-16-2025 Evaluation note* Diagnosis Onset Date Resolution Status Admit Date Glioblastoma multiforme chronic J anuary 2024 2:54pm Glioblastoma multiforme chronic J anuary 2024 3:10pm Glioblastoma multiforme chronic J anuary 2024 2:44pm Glioblastoma multiforme chronic J anuary 2024 2:08pm Glioblastoma multiforme chronic J anuary 2024 2:38pm Glioblastoma multiforme chronic F ebruary 2024 2:40pm Glioblastoma multiforme chronic F ebruary 2024 2:36pm Glioblastoma multiforme chronic F ebruary 2024 2:43pm Glioblastoma multiforme chronic F ebruary 2024 2:32pm Glioblastoma multiforme chronic F ebruary 2024 2:41pm Glioblastoma multiforme chronic F ebruary 2024 2:46pm Glioblastoma multiforme chronic F ebruary 2024 1:51pm Edema leg chronic January 10 2:15pm Glioblastoma multiforme chronic M arch 2024 2:15pm Hemiparesis chronic January 10, 2 025 2:15pm Glioblastoma multiforme chronic M arch 2024 2:16pm Abdominal pain acute January 3:49pm DVT (deep venous thrombosis) acute January 24, 2025 3:49pm Glioblastoma multiforme chronic A pril 2024 3:49pm Hemiparesis chronic January 24, 2 025 3:49pm DVT (deep venous thrombosis) acute February 04, 2025 3:24pm Glioblastoma multiforme chronic A pril 2024 3:24pm Hemiparesis chronic February 04, 2 025 3:24pm Pneumonia acute February 12 2:09pm DVT (deep venous thrombosis) acute February 18, 2025 3:27pm Glioblastoma multiforme chronic M ay 2024 3:27pm Hemiparesis chronic February 18, 2025 3:27pm DVT (deep venous thrombosis) acute February 25, 2025 2:01pm Glioblastoma multiforme chronic M ay 2024 2:01pm Hemiparesis chronic February 25 2:01pm [facility] Work Phone: 1([phone]) 477-340401-13-2025 Evaluation note* Diagnosis Onset Date Resolution Status Admit Date Headache acute October 29, 2024 3:25pm Glioblastoma multiforme chronic J anuary 2024 3:25pm Glioblastoma multiforme chronic J anuary 2024 2:54pm Glioblastoma multiforme chronic J anuary 2024 3:10pm Glioblastoma multiforme chronic J anuary 2024 2:44pm Glioblastoma multiforme chronic J anuary 2024 2:08pm Glioblastoma multiforme chronic J anuary 2024 2:38pm Glioblastoma multiforme chronic F ebruary 2024 2:40pm Glioblastoma multiforme chronic F ebruary 2024 2:36pm Glioblastoma multiforme chronic F ebruary 2024 2:43pm Glioblastoma multiforme chronic F ebruary 2024 2:32pm Glioblastoma multiforme chronic F ebruary 2024 2:41pm Glioblastoma multiforme chronic F ebruary 2024 2:46pm Glioblastoma multiforme chronic F ebruary 2024 1:51pm Edema leg chronic January 10 2:15pm Glioblastoma multiforme chronic M arch 2024 2:15pm Hemiparesis chronic January 10, 2 025 2:15pm Glioblastoma multiforme chronic M arch 2024 2:16pm Abdominal pain acute January 3:49pm DVT (deep venous thrombosis) acute January 24, 2025 3:49pm Glioblastoma multiforme chronic A pril 2024 3:49pm Hemiparesis chronic January 24, 2 025 3:49pm DVT (deep venous thrombosis) acute February 04, 2025 3:24pm Glioblastoma multiforme chronic A pril 2024 3:24pm Hemiparesis chronic February 04, 2 025 3:24pm Pneumonia acute February 12 2:09pm DVT (deep venous thrombosis) acute February 18, 2025 3:27pm Glioblastoma multiforme chronic M ay 2024 3:27pm Hemiparesis chronic February 18, 2025 3:27pm [facility] Work Phone: 1([phone]) 238-263912-26-2024 Evaluation note* Diagnosis Onset Date Resolution Status Admit Date Glioblastoma multiforme acute D ecember 2023 3:26pm Glioblastoma multiforme acute D ecember 2023 1:21pm Encounter for education acute J anuary 2024 2:13pm Glioblastoma multiforme acute J anuary 2024 2:13pm Glioblastoma multiforme acute J anuary 2024 3:25pm Headache acute October 29, 2024 3:25pm Glioblastoma multiforme acute J anuary 2024 2:54pm Glioblastoma multiforme acute J anuary 2024 3:10pm Glioblastoma multiforme acute J anuary 2024 2:44pm Glioblastoma multiforme acute J anuary 2024 2:08pm Glioblastoma multiforme acute J anuary 2024 2:38pm Glioblastoma multiforme acute F ebruary 2024 2:40pm Glioblastoma multiforme acute F ebruary 2024 2:36pm Glioblastoma multiforme acute F ebruary 2024 2:43pm Glioblastoma multiforme acute F ebruary 2024 2:32pm Glioblastoma multiforme acute F ebruary 2024 2:41pm Glioblastoma multiforme acute F ebruary 2024 2:46pm Glioblastoma multiforme acute F ebruary 2024 1:51pm [facility] Work Phone: [phone] 521-558412-26-2024 Evaluation note* Diagnosis Onset Date Resolution Status Admit Date Glioblastoma multiforme chronic D ecember 2023 3:26pm Glioblastoma multiforme chronic D ecember 2023 1:21pm Encounter for education acute J anuary 2024 2:13pm Glioblastoma multiforme chronic J anuary 2024 2:13pm Headache acute October 29, 2024 3:25pm Glioblastoma multiforme chronic J anuary 2024 3:25pm Glioblastoma multiforme chronic J anuary 2024 2:54pm Glioblastoma multiforme chronic J anuary 2024 3:10pm Glioblastoma multiforme chronic J anuary 2024 2:44pm Glioblastoma multiforme chronic J anuary 2024 2:08pm Glioblastoma multiforme chronic J anuary 2024 2:38pm Glioblastoma multiforme chronic F ebruary 2024 2:40pm Glioblastoma multiforme chronic F ebruary 2024 2:36pm Glioblastoma multiforme chronic F ebruary 2024 2:43pm Glioblastoma multiforme chronic F ebruary 2024 2:32pm Glioblastoma multiforme chronic F ebruary 2024 2:41pm Glioblastoma multiforme chronic F ebruary 2024 2:46pm Glioblastoma multiforme chronic F ebruary 2024 1:51pm Edema leg acute January 10 2:15pm Glioblastoma multiforme chronic M arch 2024 2:15pm Hemiparesis chronic January 10, 025 2:15pm Glioblastoma multiforme chronic M arch 2024 2:16pm [facility] Work Phone: 1(217) 373-543312-26-2024 Evaluation note* Diagnosis Onset Date Resolution Status Admit Date Glioblastoma multiforme chronic D ecember 2023 3:26pm Glioblastoma multiforme chronic D ecember 2023 1:21pm Encounter for education acute J anuary 2024 2:13pm Glioblastoma multiforme chronic J anuary 2024 2:13pm Headache acute October 29, 2024 3:25pm Glioblastoma multiforme chronic J anuary 2024 3:25pm Glioblastoma multiforme chronic J anuary 2024 2:54pm Glioblastoma multiforme chronic J anuary 2024 3:10pm Glioblastoma multiforme chronic J anuary 2024 2:44pm Glioblastoma multiforme chronic J anuary 2024 2:08pm Glioblastoma multiforme chronic J anuary 2024 2:38pm Glioblastoma multiforme chronic F ebruary 2024 2:40pm Glioblastoma multiforme chronic F ebruary 2024 2:36pm Glioblastoma multiforme chronic F ebruary 2024 2:43pm Glioblastoma multiforme chronic F ebruary 2024 2:32pm Glioblastoma multiforme chronic F ebruary 2024 2:41pm Glioblastoma multiforme chronic F ebruary 2024 2:46pm Glioblastoma multiforme chronic F ebruary 2024 1:51pm Edema leg acute January 10 2:15pm Glioblastoma multiforme chronic M arch 2024 2:15pm Hemiparesis chronic January 10, 025 2:15pm Glioblastoma multiforme chronic M arch 2024 2:16pm Abdominal pain acute January 3:49pm DVT (deep venous thrombosis) acute January 24, 2025 3:49pm Glioblastoma multiforme chronic A pril 2024 3:49pm Hemiparesis chronic January 24, 2 025 3:49pm [facility] Work Phone: 1([phone]) 401-909812-16-2024 NoteMy office will coordinate a referral to cancer center at [facility] Prescription for Dexamethasone refilledThe [facility] HospitalRevokom [id number] Instructions* Patient Instructions* Kostas Dupree MD - 10/01/2024 11:45 AM EST My office will coordinate a referral to cancer center at [facility] Prescription for Dexamethasone refilled documented in this [id number] History of Present illness Narrative* Celeste Austin MA - 10/01/2024 11:12 AM EST ...Patient was identified by name and date of . Celeste Austin MA * Kostas Dupree MD - 10/01/2024 11:00 AM EST [facility] Neurological Surgery post-op note: Anurag Joseph 48 year old male Postop visit s/p R frontal stereotactic biopsy on 09/21/24, butterfly glioma, final path GBM HPI Recovering without issue Stopped dexamethasone yesterday, 2 mg bid, ran out, and noticed more difficulty with walking Headache settled, no recurrence Fatigue No new c/o vision changes, seizures, or sensory changes Reviewed pathology results, implications for prognosis and treatment options (radiation and chemotherapy, surgery for resection presents more risk than benefit) Final Diagnosis A and B. 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 Hospital Course 09/21/24 - 09/22/24: Patient is a 48 year old year old male with PMH newly identified 5.1 cm heterogeneously enhancing corpus callosal mass now s/p R frontal stereotactic biopsy with Dr. Dupree on 09/21/24. Procedure was uncomplicated. Pt was admitted to the SICU post-op for neuromonitoring. Post-op head CT with expectedpost-op findings. Patient recovered without complicated and was cleared for discharge home on 09/22/24. At time of discharge pt was voiding and ambulating independently and pain was controlled on oralpain medications. Review of Systems Constitutional: Positive for malaise/fatigue. HENT: Negative. Eyes: Negative. Respiratory: Negative. Cardiovascular: Negative. Gastrointestinal: Negative. Genitourinary: Negative. Musculoskeletal: Negative. Skin: Negative. Neurological: Positive for weakness. Endo/Heme/Allergies: Negative. Psychiatric/Behavioral: Negative. Vitals: 10/01/24 1113 BP: 116/78 Pulse: 69 Resp: 18 SpO2: 98% Physical Exam HENT: Head: Normocephalic. Mouth/Throat: Mouth: Mucous membranes are moist. Pharynx: Oropharynx is clear. Eyes: Extraocular Movements: Extraocular movements intact. Conjunctiva/sclera: Conjunctivae normal. Pupils: Pupils are equal, round, and reactive to light. Pulmonary: Effort: Pulmonary effort is normal. Musculoskeletal: General: Normal range of motion. Cervical back: Normal range of motion and neck supple. Skin: General: Skin is warm and dry. Neurological: General: No focal deficit present. Mental Status: He is alert and oriented to person, place, and time. Cranial Nerves: No cranial nerve deficit. Sensory: No sensory deficit. Motor: No weakness. R frontal cranial surgical incision well healed MRI brain 09/14/2024: FINDINGS: TUMOR: Location: There is a 5.1 x 5.0 x 3.8 cm (AP x TV x CC) heterogenous enhancing mass in the frontal lobes crossing midline at the corpus callosum and demonstrates mild internal vascularity, blood product and prominent surrounding vasogenic edema. FLAIR/T2 hyperintensity extends in the bilateral frontal lobes with a small component which courses along the left internal capsule, basal ganglia and thalamus down to the left cerebral peduncle. There are additional enhancing foci which are contiguous with the T2/FLAIR signal measure up to 1.0 cm in bilateral frontal lobes (Series 12, Image 73) and a third enhancing lesion is seen in the left lateral cerebral peduncle (Series 12, Image 108). Enhancement: There is abnormal heterogenous enhancement on postcontrast imaging. Diffusion: Areas of abnormally decreased diffusion are seen, suggesting areas of hypercellular tumor. Other: A few areas of calcification and blood product. Mass effect on the anterior lateral ventricles, right greater than left. No herniation. ADDITIONAL FINDINGS: Remaining Brain Parenchyma: No acute infarct. Ventricles and Sulci: Normal. Skull Base: Craniocervical junction is normal. Expected marrow signal. Vasculature: Major intracranial vessels have normal flow voids suggesting patency. Extracranial structures: The paranasal sinuses and mastoid air cells are clear. The orbits and extracranial soft tissues demonstrate no significant abnormality. 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 Less likely differential diagnoses would include metastasis or lymphoma. Anurag was seen today for follow up. Diagnoses and all orders for this visit: GBM (glioblastoma multiforme) (HCC) Other orders - dexAMETHasone (DECADRON) 2 MG tablet; Take 1 Tablet by mouth 2 times daily. A/P: 48-year-old male patient presenting with a history of headache, fatigue, behavioral and personalitychanges over a few months. 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 He underwent stereotactic right frontal approach brain biopsy on 09/21/2024 and final pathology confirms a diagnosis of GBM. He is seen today for a postop visit. Small right frontal cranial incision is healing well. Reviewed the natural history of GBM, prognosis, treatment options. Given the deep frontal location, crossing midline, surgical resection presentsmore risk than benefit. Discussed additional options for treatment including radiation therapy, chemotherapy with temozolomide and Optune. Clinical trial enrollment could also be considered. His preference is to receive treatment closer to home. A referral will therefore be placed to radiation oncology and medical oncology at [facility]. Dexamethasone 2 mg b.i.d. renewed, we will defer to Oncology on duration of continue treatment. Follow-up as needed. Kostas Dupree MD MSc [facility] Neurosurgeon [employer] Department of Neurological Surgery [facility] Pager [phone] documented in this [id number] NoteDISCHARGE [address] [address] Anurag Joseph Date of : 1975 48 year old male Attending Kostas Dupree MD Date of Admission 09/21/2024 Date of Discharge 09/22/24 Final Diagnosis: Frontal mass of brain with local mass effect and brain compression. Pathology - high grade glioma/GBM. Future Appointments Date Time Provider Department Center 10/01/2024 11:00 AM Kostas Dupree MD [facility] Condition at Discharge unchanged Symptoms to look out for after discharge: New or Severe Pain, Fever, Headache, Drainage/Bleeding from wound or surgical site and Dizziness Activity no heavy lifting and no strenuous activity Diet no restrictions Disposition home Functional Status ambulatory For addt'l facility discharge info click 'Facility Discharge' tab. Reason for Hospitalization Brain mass Significant Findings 09/21/24 CT Head wo (post-op) - Expected postoperative changes following stereotactic biopsy of probable multicentric glioblastoma involving the corpus callosum with stable localized mass effect. No acute intracranial abnormality. Hospital Course Patient is a 48 year old year old male with PMH newly identified 5.1 cm heterogeneously enhancing corpus callosal mass now s/p R frontal stereotactic biopsy with Dr. Dupree on 09/21/24. Procedure was uncomplicated. Pt was admitted to the SICU post-op for neuromonitoring. Post-op head CT with expected post-op findings. Patient recovered without complicated and was cleared for discharge home on 09/22/24. At time of discharge pt was voiding and ambulating independently and pain was controlled on oral pain medications. Day of Discharge Exam Awake, Alert, Ox3 Eyes open spontaneously Briskly Following Commands Speech intact PERRL, EOMI Face symmetric Strong, symmetric shoulder shrug RUE 5/5 LUE 5/5 RLE 5/5 LLE 5/5 Subtle RUE drift Sensation intact to light touch throughout Wound and pin sites: c/d/i I provided the patient and/or family/surrogate with the following information: Follow-up plans, and warning signs that should prompt more urgent follow-upThe [facility]12[facility]07[facility] Hospital course Narrative* Asia Sapp PA-C - 09/22/2024 10:26 AM EST DISCHARGE SUMMARY [facility] [address] [place] [address] Anurag Joseph Date of : 1975 48 year old male Attending Kostas Dupree MD Date of Admission 09/21/2024 Date of Discharge 09/22/24 Final Diagnosis: Frontal mass of brain Future Appointments Date Time Provider Department Center 10/01/2024 11:00 AM Kostas Dupree MD [facility] Condition at Discharge unchanged Symptoms to look out for after discharge: New or Severe Pain, Fever, Headache, Drainage/Bleeding from wound or surgical site and Dizziness Activity no heavy lifting and no strenuous activity Diet no restrictions Disposition home Functional Status ambulatory For addt'l facility discharge info click 'Facility Discharge' tab. Reason for Hospitalization Brain mass Significant Findings 09/21/24 CT Head wo (post-op) - Expected postoperative changes following stereotactic biopsy of probable multicentric glioblastoma involving the corpus callosum with stable localized mass effect. No acute intracranial abnormality. Hospital Course Patient is a 48 year old year old male with PMH newly identified 5.1 cm heterogeneously enhancing corpus callosal mass now s/p R frontal stereotactic biopsy with Dr. Dupree on 09/21/24. Procedure was uncomplicated. Pt was admitted to the SICU post-op for neuromonitoring. Post-op head CT with expectedpost-op findings. Patient recovered without complicated and was cleared for discharge home on 09/22/24. At time of discharge pt was voiding and ambulating independently and pain was controlled on oralpain medications. Day of Discharge Exam Awake, Alert, Ox3 Eyes open spontaneously Briskly Following Commands Speech intact PERRL, EOMI Face symmetric Strong, symmetric shoulder shrug RUE 5/5 LUE 5/5 RLE 5/5 LLE 5/5 Subtle RUE drift Sensation intact to light touch throughout Wound and pin sites: c/d/i I provided the patient and/or family/surrogate with the following information: Follow-up plans, and warning signs that should prompt more urgent follow-up Cosigned by Kostas Dupree MD at 09/22/2024 2:07 PM EST documented in this [id number] Hospital Discharge instructions* Discharge Instructions* Joanna Vasquez, BAND ATTACHER-[employer]ING [employer]ANT OPERATOR - 09/22/2024 9:44 AM EST NEUROLOGICAL SURGERY DISCHARGE INSTRUCTIONS C O N F I D E N T I A L I N F O R M A T I O N Anurag Joseph [id number] The following is a brief overview of your hospitalization. Some of the information contained on this summary may be confidential. This information should be kept in your records and should be shared with your regular doctor. Admission Date:09/21/2024 6:09 AM Discharge Date: 09/22/24 Disposition: home PRINCIPAL DIAGNOSIS (reason after study for this admission): brain mass Other Diagnosis: Patient Active Hospital Problem List: Patient Active Problem List: Frontal mass of brain [G93.89] Other headache syndrome [G44.89] Physicians: Attending: Dr. Kostas Dupree, T: [phone] Operations performed while hospitalized: 09/21/24 Right frontal approach stereotactic brain biopsy Pending results: pathology Pain Control: Take your pain medications as prescribed as needed for breakthrough pain. These include narcotics, which can induce constipation. Please take docusate when taking narcotics to prevent constipation. Please be advised that opioids cause sedation and that you should not drive or operate d angerous machinery while taking opioids and should not mix with alcohol or other sedating drugs. There is a risk of respiratory, BIOMASS TECHNICIAN depression and when medications are misused and opioids havepotential for addiction. Please take only as prescribed, store in a safe place, and dispose of extra medication appropriately. Ask your pharmacy for more details. Activity after Discharge: No heavy lifting, weight bearing as tolerated, no driving until mobility is returned to normal. Do not submerge wound(s) in standing water for 7 days after surgery (no tub bathing, swimming, or hot tubs). Do not lift, push or pull more than [address] for [address] or operate heavy machinery while taking narcotic pain medications as these medications can alter perception, impair judgement, and slow reaction times. Treatment/wound care: *call office for increased bleeding, pus, discharge from surgical site; fever >102F *any remaining sutures/carlos to be removed on follow-up appointment with CAMPAIGN COORDINATOR or PA (or on POD#14 in Rehab if well healed) *cranial surgery: you MUST start daily hair/incision washing 3 days after surgery *pat dry gently, do not leave saturated; shower/running water only - NO bath, pool, hot-tub (no still/standing water) -okay to use shampoo; avoid hair-dryer, comb/brush over incision site; do not dye hair until discussed at follow-up appointment *no lotions or creams on or near incision site; leave uncovered (a very small amount of bacitracin may be used ONLY for excessive itchiness as incision heals; wash off & re-apply daily) *use an alcohol swab near the edges of the incision daily, however, DO NOT apply alcohol swab to the incision itself *If you are a smoker, this is the time to quit. Do not smoke from the time you find out you are having surgery. Smoking increases your healing time to nearly double that of a non smoker. Smoking alsoincreases the risk of complications and problems following surgery. Diet: Regular Follow-Up: - your follow up appointment is scheduled with Dr. Dupree on 10/01/24 at 11am Additional Instructions: - continue your dexamethasone (steroid) until follow up with Dr. Dupree). Continue taking your Pantoprazole while on dexamethasone to protect your stomach - do not take Aspirin or NSAIDs (i.e. Advil/Motrin/ibuprofen, Aleve/naproxen sodium, Celebrex/celecoxib, Mobic/meloxicam, diclofenac, nabumetone, etodolac, etc.), or Vitamin E, or [place]-3 fish oils until discussed at follow up appointment, as they can interfere with bleeding/clotting (and success of any bony fusion) - for any changes in neurological exam including, but not limited to: new or worsening seizures; changes in vision, speech, or swallowing; new weakness; loss of sensation; changes in memory; worsening balance; worsening headache; neck pain; bowel or bladder incontinence --> return to [facility] or go to your closest ER, and call your Neurosurgeon - You may call [phone] if you have questions or concerns after regular business hours and ask to be transferred to the neurosurgery resident on-call. I have received a copy of the above instructions and understand them. I have received my personal belongings and/or valuables slip. SIGNED: Patient/Significant Other SIGNED: Registered Nurse Electronically SIGNED by Licensed Independent Practitioner: Joanna Vasquez MSN, BAND ATTACHER-[facility] Neurosurgery Service Pager [phone] We value your opinion! If you receive a customer satisfaction survey about your hospital stay, please complete and return. We will use this information to improve our services. Please remember to discard old medication lists and to update your records with all healthcare providers and retail pharmacies. * Attachments The following attachments cannot be sent through Care Everywhere. * Stereotactic Radiosurgery (Russian) documented in this [id number] History of Present illness Narrative* Muriel Sands MD - 09/22/2024 7:54 AM EST Images from the original note were not included. [facility] NEUROSURGERY DAILY PROGRESS NOTE SUBJECTIVE: No acute events overnight. OBJECTIVE: Vitals: Vital sign ranges over the past 24 hours (retrieved 09/22/2024 at 5:46 AM): Tmax (24 hours): 99 F (37.2 C) Pulse Av.7 Min: 51 Max: 75 Systolic (24hrs), Av , Min:120 , Max:142 Diastolic (24hrs), Av, Min:71, Max:99 MAP (mmHg) Av.9 mmHg Min: 85 mmHg Max: 111 mmHg Resp Av Min: 12 Max: 24 SpO2 Av.2 % Min: 96 % Max: 98 % In: 2259.5 (23 mL/kg) [P.O.:120; I.V.:2139.5 (0.9 mL/kg/hr)] Out: 1270 (12.9 mL/kg) [Urine:1270 (0.5 mL/kg/hr)] Net: 989.5 Weight: 98.4 kg Medications: docusate sodium 100 mg 2x Daily dexAMETHasone 2 mg 2x Daily pantoprazole 40 mg Daily 30 min before breakfast scopolamine 1.5 mg Q72H acetaminophen 650 mg Q4H PRN oxyCODONE 5 mg Q4H PRN oxyCODONE 10 mg Q4H PRN Labs: CBC/PT/INR 09/22/2024 2:24 AM WBC 16.2 RBC 4.25 Hgb 14.0 Hct 42.0 MCV 99 RDW 14.1 Plt 218 aPTT 25 INR 1.06 WBC/Diff No lab values to display. Basic Metabolic Panel 09/22/2024 2:24 AM Na 139 K 4.7 Cl 105 CO2 25 Gap 14 Glu 123 BUN 27 Cr 0.96 Ca 8.4 Mg 2.1 Hepatic/Biliary/Pancreas No lab values to display. Cardiac None Arterial Blood Gases None Fingerstick Glucose Glucose 09/21/24 2149 218 Comment: Notified RN MALKA NEVAREZ
09/21/24 1628 122 09/21/24 1051 96 Physical Exam: Awake, Alert, Ox3 Eyes open spontaneously Briskly Following Commands Speech intact PERRL, EOMI Face symmetric Strong, symmetric shoulder shrug RUE 5/5 LUE 5/5 RLE 5/5 LLE 5/5 Subtle RUE drift Sensation intact to light touch throughout Wound: c/d/i A/P: Patient is a 48 year old year old male with PMH newly identified 5.1 cm heterogeneously enhancing corpus callosal mass now s/p 09/21 R frontal stereotactic biopsy PLAN: - SICU - Okay for Q4hr NC - Pain control - Post-op CTH completed and reviewed - Decadron 2mg BID, will continue until 2 week follow up - Follow OR path - Perioperative abx complete - d/c interiano, void trial - ADAT, OOB - SCDs only, hold chemotherapeutic DVT prophylaxis - Planning for discharge home today after void trial Muriel Sands MD Neurological Surgery, PGY-3 Service Pager [phone] 09/22/2024 - 7:53 AM * Alex Yarbrough MD - 09/21/2024 1:35 PM EST Images from the original note were not included. DEPARTMENT OF SURGERY DIVISION OF TRAUMA, BURN, AND CRITICAL CARE SURGICAL INTENSIVE CARE UNIT (SICU) History & Physical Examination Patient: Anurag Joseph, 48 year old, male : 1975 Admit Date: 09/21/2024 Room: [place] [address] Today's Date: 09/21/2024, Length of stay: 1 day(s) Code Status: Prior Height: 6' Weight: 98.4 kg BMI: 28.63 Reason for consultation: Q1 neuro checks Referring physician: Patient seen and examined on 09/21/2024 History of Present Illness: Background: Anurag Joseph is a 48 year old male with no significant PMH who presented to [facility] ED for headache. CT showed intracranial tumor. He was transferred to for NSGY consult. MRI showed multifocal glioblastoma. No evidence of primary or metastatic disease in chest/abdomen or pelvis. He was started on dexamethasone. He was transferred to the SICU on POD0 for q1 neuro checks s/p R frontal stereotactic biopsy. Hospital Course: 09/21- biopsy performed, transferred to SICU Operative Course: Right frontal approach stereotactic brain biopsy with [employer] system EBL: not documented Fluid replacement: 1750 mL LR UOP: 300 mL On assessment, patient AO x3 and has no acute concerns. History: Past Medical History: No past medical history on file. Past Surgical History: No past surgical history on file. Medications: Current Facility-Administered Medications for the 09/21/24 encounter (Hospital Encounter) Medication Dose Route Frequency Provider Last Rate Last Admin ceFAZolin (ANCEF) 2,000 mg in dextrose 50 mL ivpb 2 g Intravenous One Time Dose Muriel Sands MD Outpatient Medications Marked as Taking for the 09/21/24 encounter (Hospital Encounter) Medication Sig Dispense Refill dexAMETHasone (DECADRON) 2 MG tablet Take 2 Tablets by mouth 2 times daily for 4 days, THEN 1 Tablet 2 times daily for 10 days. 36 Tablet 0 Allergies: No Known Allergies Family History: No family history on file. Social History: Social History Socioeconomic History Marital status: Tobacco Use Smoking status: Never Smokeless tobacco: Never Social Drivers of Health Food Insecurity: Unknown (09/14/2024) Hunger Vital Sign Worried About Running Out of Food in the Last Year: Never true has no history on file for drug use. Review of Systems: Unable to complete ROS given patient's current status ROS Vitals & I/Os: 24 Hour Vitals Range: Vital sign ranges over the past 24 hours (retrieved 09/21/2024 at 1:35 PM): Tmax (24 hours): 98.4 F (36.9 C) Pulse Av.4 Min: 58 Max: 66 Systolic (24hrs), Av , Min:124 , Max:142 Diastolic (24hrs), Av, Min:71, Max:99 MAP (mmHg) Av.5 mmHg Min: 90 mmHg Max: 111 mmHg Resp Av.8 Min: 12 Max: 18 SpO2 Av.4 % Min: 97 % Max: 98 % Vital Signs: Patient Vitals for the past 24 hrs: BP Temp Temp src Pulse Resp SpO2 O2 Device 09/21/24 1300 124/84 98.2 F (36.8 C) -- 59 13 97 % -- 09/21/24 1200 126/80 98.2 F (36.8 C) -- 58 13 98 % -- 09/21/24 1111 -- 98.4 F (36.9 C) -- 63 12 97 % -- 09/21/24 1100 131/71 98 F (36.7 C) Oral 66 18 98 % Room air 09/21/24 0650 142/99 97.9 F (36.6 C) Oral 61 18 97 % Room air 24 Hour I&Os: No intake/output data recorded. Physical Exam: General: Lying in bed, no apparent distress, AO x3 HEENT/Neuro: EOMI, PERRL, face symmetric, strong, symmetric shoulder shrug. Small incision with dermabond at edge of R frontal hair line Cardiac: Regular rate and rhythm Pulmonary: Normal respiratory effort on RA Abdomen: Non-distended. Extremities: No peripheral edema Pulses: palpable radial and DP bilaterally Lab Data: 13.3 \ 15.8 / 237 / 46.1 \ CBC: 09/14/2024: 4:46 AM 138 105 25 / \ 182 4.2 24 1.12 BMP: 09/14/2024: 4:46 AM BMP: BMP (last 3 years, up to 8 values) 09/14/2024 4:46 AM Na 138 K 4.2 Cl 105 CO2 24 Gap 13 Glu 182 BUN 25 Cr 1.12 Ca 9.7 eGFR 81 CBC: CBC (last 3 years, up to 8 values) 09/14/2024 4:46 AM WBC 13.3 RBC 4.74 Hgb 15.8 Hct 46.1 MCV 97 RDW 13.9 Plt 237 PT/PTT/INR: PT/PTT/INR (last 3 years, up to 8 values) 09/15/2024 6:19 AM INR 1.22 Type & Screen: Type & Screen (Last result in the past 30 days) 09/21/2024 09/15/2024 7:02 AM 6:19 AM ABO Rh A Negative A Negative Screen Int. Negative Negative ABG: Arterial Blood Gases None BNP: No result for BNP Hepatic Panel: LFT's (last 3 years, up to 8 values) No lab values to display. Glucose: Fingerstick Glucose (last 72 hours) Glucose 09/21/24 1051 96 A1c: No results found for: HBA1C TSH: No results found for: TSH Blood Culture: Blood Culture No lab values to display. Urine Culture: Urine Culture (last 1 year) No lab values to display. Respiratory Culture: Respiratory Culture, Misc No lab values to display. Wt Readings from Last 5 Encounters: 09/21/24 217 lb (98.4 kg) 09/14/24 218 lb 1.6 oz (98.9 kg) Imaging Results: CT Head for navigation No change in the partially calcified mass in the frontal lobes extending through the corpus callosum and the focal area of hyperdensity in the left thalamus in keeping with multifocal glioma. Moderate vasogenic edema is present in the right frontal lobe and minimal in the left frontal lobe. CT CAP 1. No evidence of primary or metastatic disease in the chest, abdomen, or pelvis. 2. No acute process identified. Consults: None NSGY primary Medications: Scheduled Medications: docusate sodium 100 mg 2x Daily ceFAZolin 2,000 mg Q8H Antibiotic dexAMETHasone 2 mg 2x Daily [START ON 09/22/2024] pantoprazole 40 mg Daily 30 min before breakfast scopolamine 1.5 mg Q72H PRN Medications: acetaminophen 650 mg Q4H PRN oxyCODONE 5 mg Q4H PRN oxyCODONE 10 mg Q4H PRN IV Medications: sodium chloride 30 mL/hr at 09/21/24 1300 Assessment and Plan: Diagnosis s/p R frontal stereotactic biopsy: - high grade glioma PMH: None Plan: Neurological: # High grade glioma # s/p R frontal stereotactic biopsy Plan: - Acetaminophen 650 mg PO q4h PRN mild pain (1-3) - Oxycodone 5 mg PO q6h PRN moderate pain (4-6) - Oxycodone 10 mg PO q6h PRN severe pain (7-10) - Decadron 2mg BID - Will obtain CT head at 2pm Cardiovascular: - Not tachycardic - BP normotensive to borderline hypertensive to 142/99 Plan: - Vital signs per floor protocol Respiratory: - Satting 97-98% on RA Plan: - Maintain SpO2 >92% GI/Diet: Plan: - Diet: Regular - Colace 100 mg PO BID - Scopolamine patch 1.5 mg q72h - Protonix 40mg daily before breakfast Renal/Electrolytes: - Baseline kidney function and lytes wnl Plan: - mIVF: NS 30 mL/hr - BMP/Mg daily - Replace electrolytes as indicated - Maintain Mg >2, K >4 - Measure strict I&O Infectious Disease: - Received 1xc dose periop gentamicin - Afebrile, not tachycardic Plan: - Start ancef 2g IV q8h for 2 doses (last dose 09/21 2200) - Monitor temperature and WBC for signs of infection Hematology: - Prior Hb 15.8 Plan: - CBC daily - Daily PT, PTT, and INR - No current indication for transfusion - Maintain hemoglobin >7 Endocrine: - Pre op glucose 96 Plan: - POCT qAC/HS - Monitor blood glucose levels, adjust regimen above for BGL control between 140-180 Musculoskeletal: Plan: - PT/OT - Progressive mobility guidelines Tubes, Lines, and Drains: - PIV x2 09/21 - Right radial arterial line 09/21 - Interiano catheter 09/21 Arterial Line: 09/21/24 Right (Active) Number of days: 0 Peripheral IV Access: 09/21/24 0707 18 gauge Left Forearm (Active) Site Assessment WNL;Dressing intact 09/21/24 0707 Infusion Status Port #1 Capped;Patent;Positive blood return 09/21/24 0707 Number of days: 0 Peripheral IV Access: 09/21/24 0745 16 gauge Left Hand (Active) Number of days: 0 Indwelling Urinary Catheter 09/21/24 0749 16 FR (Active) Number of days: 0 Prophylaxis: - SCDs Disposition: - Remain in SICU Follow Up: - PCP: No primary care provider on file. - NSGY Code Status: - Prior I have reviewed the above listed plan with the surgery critical care attending and it is preliminary until finalized by them. Kindly await their final recommendations. Alex Yarbrough MD General Surgery Cosigned by Prasanna Asencio MD at 09/21/2024 4:07 PM EST Associated attestation - Prasanna Asencio MD - 09/21/2024 4:07 PM EST I have personally seen and examined the patient with the team and nursing staff at the patient's bedside. I have reviewed recent data and reports. I have also reviewed lab values, imaging, and current medications profile. I discussed my findings with the team. I reviewed the full note by the resident with the detailed findings, and I agree with the assessment, overall impression, and plan of care. We have also updated the patient or any available family as well as other services with our care plan. Total Critical Care Time 35 minutes Prasanna Asencio MD * Muriel Sands MD - 09/21/2024 7:27 AM EST NEUROSURGERY POST-OPERATIVE NOTE Interval HPI: Post-op check. OBJECTIVE: Vitals: Vital sign ranges over the past 24 hours (retrieved 09/21/2024 at 7:27 AM): Tmax (24 hours): 97.9 F (36.6 C) Pulse Av Min: 61 Max: 61 Systolic (24hrs), Av , Min:142 , Max:142 Diastolic (24hrs), Av, Min:99, Max:99 MAP (mmHg) Av mmHg Min: 111 mmHg Max: 111 mmHg Resp Av Min: 18 Max: 18 SpO2 Av % Min: 97 % Max: 97 % No intake/output data recorded. Physical Exam: Waking up from anesthesia Eyes open to voice Following Commands No speech yet Ox3 EOMI, PERRL Face symmetric Strong, symmetric shoulder shrug RUE 4+/5 LUE 5/5 RLE 5/5 LLE 5/5 RUE Drift Sensation intact to light touch throughout Wound: c/d/i ASSESSMENT: Patient is a 48 year old year old male with PMH newly identified 5.1 cm heterogeneouslyenhancing corpus callosal mass now s/p 12/6 R frontal stereotactic biopsy PLAN: - Neuro as above, stable - Pain control - CTH at 1400 - decadron 2 mg BID - OR path - Perioperative abx - ADAT, OOB - SCDs only - To SICU for post-op recovery Muriel Sands MD Neurological Surgery PGY-3 Service Pager: [phone] 09/21/2024 - 7:27 AM documented in this [id number] [facility]MET[facility]ILY PROGRESS NOTE SUBJECTIVE: No acute events overnight. OBJECTIVE: Vitals: Vital sign ranges over the past 24 hours (retrieved 09/22/2024 at 5:46 AM): Tmax (24 hours): 99 ???F (37.2 ???C) Pulse Av.7 Min: 51 Max: 75 Systolic (24hrs), Av , Min:120 , Max:142 Diastolic (24hrs), Av, Min:71, Max:99 MAP (mmHg) Av.9 mmHg Min: 85 mmHg Max: 111 mmHg Resp Av Min: 12 Max: 24 SpO2 Av.2 % Min: 96 % Max: 98 % In: 2259.5 (23 mL/kg) [P.O.:120; I.V.:2139.5 (0.9 mL/kg/hr)] Out: 1270 (12.9 mL/kg) [Urine:1270 (0.5 mL/kg/hr)] Net: 989.5 Weight: 98.4 kg Medications: docusate sodium 100 mg 2x Daily dexAMETHasone 2 mg 2x Daily pantoprazole 40 mg Daily 30 min before breakfast scopolamine 1.5 mg Q72H acetaminophen 650 mg Q4H PRN oxyCODONE 5 mg Q4H PRN oxyCODONE 10 mg Q4H PRN Labs: CBC/PT/INR 09/22/2024 2:24 AM WBC 16.2 RBC 4.25 Hgb 14.0 Hct 42.0 MCV 99 RDW 14.1 Plt 218 aPTT 25 INR 1.06 WBC/Diff No lab values to display. Basic Metabolic Panel 09/22/2024 2:24 AM Na 139 K 4.7 Cl 105 CO2 25 Gap 14 Glu 123 BUN 27 Cr 0.96 Ca 8.4 Mg 2.1 Hepatic/Biliary/Pancreas No lab values to display. Cardiac None Arterial Blood Gases None Fingerstick Glucose Glucose 09/21/24 2149 218 Comment: Notified KLARISSA ACE MD 09/21/24 1628 122 09/21/24 1051 96 Physical Exam: Awake, Alert, Ox3 Eyes open spontaneously Briskly Following Commands Speech intact PERRL, EOMI Face symmetric Strong, symmetric shoulder shrug RUE 5/5 LUE 5/5 RLE 5/5 LLE 5/5 Subtle RUE drift Sensation intact to light touch throughout Wound: c/d/i A/P: Patient is a 48 year old year old male with PMH newly identified 5.1 cm heterogeneously enhancing corpus callosal mass now s/p 09/21 R frontal stereotactic biopsy PLAN: - SICU - Okay for Q4hr NC - Pain control - Post-op CTH completed and reviewed - Decadron 2mg BID, will continue until 2 week follow up - Follow OR path - Perioperative abx complete - d/c interiano, void trial - ADAT, OOB - SCDs only, hold chemotherapeutic DVT prophylaxis - Planning for discharge home today after void trial Muriel Sands MD Neurological Surgery, PGY-3 Service Pager [phone] 09/22/2024 - 7:53 AMSt[facility] HospitalRevokom [id number] NoteEXAMINATION: CT HEAD W/O CONTRAST 09/21/2024 04:47 PM CLINICAL HISTORY: Postoperative evaluation ASSOCIATED DIAGNOSIS: Postoperative evaluation ORDERING PROVIDER: MURIEL SANDS TECHNOLOGISTS NOTE: COMPARISON: Brain MRI from 09/14/2024 TECHNIQUE: Thin axial imaging of the head was performed without intravenous contrast. FINDINGS: Expected immediate postoperative changes related to stereotactic biopsy of infiltrative mass centered at the genu of the corpus callosum with trace postprocedural pneumocephalus in the right forceps minor and subcortical white matter of the ventral right cingulate gyrus. The mass extends across midline and involves each forceps minor and ventral cingulate gyri. Dystrophic mineralization along theleft lateral margin of the mass in the ventral best radiata. Subtle confluent hypodensity in the dorsal left thalamus corresponds to an additional enhancing mass on prior brain MRI. Stable localized bifrontal gyral swelling and sulcal effacement with minimal compression of the frontal horns. No acute intracranial hemorrhage, CT evidence of acute territorial infarction, or hydrocephalus. Small right frontal claudine hole for stereotactic biopsy. Remaining calvarium and skull base are within normal limits. Paranasal sinuses and tympanomastoid cavities are unopacified. 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 No acute intracranial abnormality. MACRO: None [id number] NoteEXAMINATION: CT HEAD W/O CONTRAST 09/21/2024 04:47 PM CLINICAL HISTORY: Postoperative evaluation ASSOCIATED DIAGNOSIS: Postoperative evaluation ORDERING PROVIDER: MURIEL SANDS TECHNOLOGISTS NOTE: COMPARISON: Brain MRI from 09/14/2024 TECHNIQUE: Thin axial imaging of the head was performed without intravenous contrast. FINDINGS: Expected immediate postoperative changes related to stereotactic biopsy of infiltrative mass centered at the genu of the corpus callosum with trace postprocedural pneumocephalus in the right forceps minor and subcortical white matter of the ventral right cingulate gyrus. The mass extends across midline and involves each forceps minor and ventral cingulate gyri. Dystrophic mineralization along theleft lateral margin of the mass in the ventral best radiata. Subtle confluent hypodensity in the dorsal left thalamus corresponds to an additional enhancing mass on prior brain MRI. Stable localized bifrontal gyral swelling and sulcal effacement with minimal compression of the frontal horns. No acute intracranial hemorrhage, CT evidence of acute territorial infarction, or hydrocephalus. Small right frontal claudine hole for stereotactic biopsy. Remaining calvarium and skull base are within normal limits. Paranasal sinuses and tympanomastoid cavities are unopacified. 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 No acute intracranial abnormality. MACRO: NoneThe [employer] [id number] Nurse Surgical operation note* Bryson Roman RN - 09/21/2024 9:13 AM EST SICU supercharge repair supervisor directed to call Dr Asencio. Dr Dupree talked to Dr Asencio who accepted pt to SICU. Bed co-ordinator contacted [id number] Nurse Note* Bryson Roman RN - 09/21/2024 9:13 AM EST SICU supercharge repair supervisor directed to call Dr Asencio. Dr Dupree talked to Dr Asencio who accepted pt to SICU. Bed co-ordinator contacted * Bryson Roman RN - 09/21/2024 8:56 AM EST Contacted [facility] supercharge repair supervisor inre bed for pt postop. No rooms on NCCU as of now. MELA Overton suggested to contact SICU documented in this [id number] Nurse Surgical operation note * Bryson Roman RN - 09/21/2024 8:56 AM EST Contacted [facility] supercharge repair supervisor inre bed for pt postop. No rooms on NCCU as of now. MELA Overton suggested to contact SICU [id number] Surgery Postoperative evaluation and management note* Brief Operative Note - Kostas Dupree MD - 09/21/2024 8:44 AM EST Brief Operative Note MAIN OR 03 [facility] [place] 48 [place] Surgical Contact Serial Number: [id number] Preoperative Diagnosis: Pre-op Diagnosis * Frontal mass of brain [G93.89] Postoperative Diagnosis: * Frontal mass of brain [G93.89] Procedures: Right frontal approach stereotactic brain biopsy with [employer] system Surgeon(s): Surgeon(s): Kostas Dupree MD Staff: Scrub: Nadeen Bryan RN Catering Convention Services Manager Nurse: Bryson Roman RN Adjunct Instructor Of Women'S Studies: Muriel Sands MD Anesthesia: General Anesthesiologist: Carmelo Ware MD Diesel Locomotive Engineer: Geoff Espinoza MD Specimen(s): ID Type Source Tests Collected by Time Destination 1 : RIGHT FRONTAL BRAIN BIOPSY Tissue Brain SPECIMEN FOR SURGICAL PATH Kostas Dupree MD 09/21/2024926 2 : RIGHT FRONTAL BRAIN BIOPSY Tissue Brain SPECIMEN FOR SURGICAL PATH Kostas Dupree MD 09/21/2024927 Estimated Blood Loss: Minimal < 5 cc Lines/Drains: Peripheral IV Access: 09/21/24706 18 gauge Left Forearm (Active) Site Assessment WNL;Dressing intact 09/21/24706 Infusion Status Port #1 Capped;Patent;Positive blood return 09/21/24706 Peripheral IV Access: 09/21/24744 16 gauge Left Hand (Active) Temporarily Retained Foreign Object: No Findings: Neurosurgery - procedure as booked Frozen pathology - high grade glioma Complications: None Status at end of surgery: Stable Activity: progressive ambulation Surgical wound class: Yes, wound was clean. Patient Class: Surgery Admit. Is this a patient scheduled as an outpatient that needs to be admitted as an inpatient? No Dr. Dupree was present in the OR for the critical portion of the procedure and procedure sign-out. Signed by Kostas Dupree MD 09/21/2024 10:13 AM [employer] Work Phone: [phone] 575-648012-06-2024 Surgery Surgical operation note* OP Note - Kostas Dupree MD - 09/21/2024 8:44 AM EST Operative Note MAIN OR 03 [facility] 48 year old male Surgical Contact Serial Number: [id number] Preoperative Diagnosis: Pre-op Diagnosis * Frontal mass of brain [G93.89] Postoperative Diagnosis: * Frontal mass of brain [G93.89] Procedures: Right frontal approach stereotactic brain biopsy with [employer] system Surgeon(s): Surgeon(s): Kostas Dupree MD Staff: Scrub: Nadeen Bryan RN Catering Convention Services Manager Nurse: Bryson Roman RN Adjunct Instructor Of Women'S Studies: Muriel Sands MD Anesthesia: General Anesthesiologist: Carmelo Ware MD Diesel Locomotive Engineer: Geoff Espinoza MD Specimen(s): ID Type Source Tests Collected by Time Destination 1 : RIGHT FRONTAL BRAIN BIOPSY Tissue Brain SPECIMEN FOR SURGICAL PATH Kostas Dupree MD 09/21/2024926 2 : RIGHT FRONTAL BRAIN BIOPSY Tissue Brain SPECIMEN FOR SURGICAL PATH Kostas Dupree MD 09/21/2024927 Estimated Blood Loss: Minimal < 5 cc Lines/Drains: Peripheral IV Access: 09/21/24706 18 gauge Left Forearm (Active) Site Assessment WNL;Dressing intact 09/21/24706 Infusion Status Port #1 Capped;Patent;Positive blood return 09/21/24706 Peripheral IV Access: 09/21/24744 16 gauge Left Hand (Active) Temporarily Retained Foreign Object: No Clinical history: 48-year-old male patient presenting with a 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 He was brought to the OR for elective stereotactic right frontal brain biopsy. Informed consent was obtained after review of the risks, benefits and alternatives of surgical intervention. Description of operative procedure and findings: The patient underwent induction of general anesthesia and endotracheal intubation. He was positioned supine on the OR table. The appropriate vascular access lines and a Interiano catheter were placed. Pressure points were padded. His head was pinned in the Gonzalez and secured to the OR table for positioning for a right frontal approach stereotactic brain biopsy. The [employer] navigation system was registered and the location of the right frontal entry point was confirmed. A small amount of hair wasshaved with clippers and sterile preparation and draping followed. A surgical time-out was performed confirming the patient identity, planned procedure, laterality, allergies, fire risk, wound class,perioperative antibiotics and equipment. 1% lidocaine with epinephrine was infiltrated into the line of the skin incision. The skin was incised sharply with a scalpel. The periosteum was reflected off the underlying bone. The incision was small, 1 cm, to facilitate access of the drill. The [employer] system was brought into position and the joints were adjusted to the pre planned trajectory for the right frontal approach brain biopsy. A powered drill was used to drill a small craniostomy through the right frontal bone. The dura was punctured. The brain biopsy needle was then guided down to the depth of thepredetermined target in the deep frontal mass. Tissue samples were taken for frozen and permanent pathology. The needle was then advanced a cm deeper and additional tissue samples were removed. An additional sample was taken at a depth of 1 cm short of the target. Frozen pathology revealed necrotictissue suspicious of high-grade glioma. The brain biopsy needle was removed. We confirmed good hemostasis. The skin incision was closed with Monocryl 3-0 suture, running continuous. Bacitracin was applied to the closed surgical incision. Needle, sponge and instrument counts were correct at the end of the case. The patient was extubated and transferred to the surgical ICU in stable condition. Frozen pathology - high grade glioma Complications: None Status at end of surgery: Stable Activity: progressive ambulation Surgical wound class: Yes, wound was clean. Patient Class: Surgery Admit. Is this a patient scheduled as an outpatient that needs to be admitted as an inpatient? No Dr. Dupree was present in the OR for the critical portion of the procedure and procedure sign-out. [id number] Miscellaneous Notes* Brief Operative Note - Kostas Dupree MD - 09/21/2024 8:44 AM EST Brief Operative Note MAIN OR 03 [facility] 48 year old male Surgical Contact Serial Number: [id number] Preoperative Diagnosis: Pre-op Diagnosis * Frontal mass of brain [G93.89] Postoperative Diagnosis: * Frontal mass of brain [G93.89] Procedures: Right frontal approach stereotactic brain biopsy with [employer] system Surgeon(s): Surgeon(s): Kostas Dupree MD Staff: Scrub: Nadeen Bryan RN Catering Convention Services Manager Nurse: Bryson Roman RN Adjunct Instructor Of Women'S Studies: Muriel Sands MD Anesthesia: General Anesthesiologist: Carmelo Ware MD Diesel Locomotive Engineer: Geoff Espinoza MD Specimen(s): ID Type Source Tests Collected by Time Destination 1 : RIGHT FRONTAL BRAIN BIOPSY Tissue Brain SPECIMEN FOR SURGICAL PATH Kostas Dupree MD 09/21/2024926 2 : RIGHT FRONTAL BRAIN BIOPSY Tissue Brain SPECIMEN FOR SURGICAL PATH Kostas Dupree MD 09/21/2024927 Estimated Blood Loss: Minimal < 5 cc Lines/Drains: Peripheral IV Access: 09/21/24 0707 18 gauge Left Forearm (Active) Site Assessment WNL;Dressing intact 09/21/24706 Infusion Status Port #1 Capped;Patent;Positive blood return 09/21/24706 Peripheral IV Access: 09/21/24744 16 gauge Left Hand (Active) Temporarily Retained Foreign Object: No Findings: Neurosurgery - procedure as booked Frozen pathology - high grade glioma Complications: None Status at end of surgery: Stable Activity: progressive ambulation Surgical wound class: Yes, wound was clean. Patient Class: Surgery Admit. Is this a patient scheduled as an outpatient that needs to be admitted as an inpatient? No Dr. Dupree was present in the OR for the critical portion of the procedure and procedure sign-out. Signed by Kostas Dupree MD 09/21/2024 10:13 AM * OP Note - Kostas Dupree MD - 09/21/2024 8:44 AM EST Operative Note MAIN OR 03 [facility] 48 year old male Surgical Contact Serial Number: [id number] Preoperative Diagnosis: Pre-op Diagnosis * Frontal mass of brain [G93.89] Postoperative Diagnosis: * Frontal mass of brain [G93.89] Procedures: Right frontal approach stereotactic brain biopsy with [employer] system Surgeon(s): Surgeon(s): Kostas Dupree MD Staff: Scrub: Nadeen Bryan RN Catering Convention Services Manager Nurse: Bryson Roman RN Adjunct Instructor Of Women'S Studies: Muriel Sands MD Anesthesia: General Anesthesiologist: Carmelo Ware MD Diesel Locomotive Engineer: Geoff Espinoza MD Specimen(s): ID Type Source Tests Collected by Time Destination 1 : RIGHT FRONTAL BRAIN BIOPSY Tissue Brain SPECIMEN FOR SURGICAL PATH Kostas Dupree MD 09/21/2024926 2 : RIGHT FRONTAL BRAIN BIOPSY Tissue Brain SPECIMEN FOR SURGICAL PATH Kostas Dupree MD 09/21/2024927 Estimated Blood Loss: Minimal < 5 cc Lines/Drains: Peripheral IV Access: 09/21/24706 18 gauge Left Forearm (Active) Site Assessment WNL;Dressing intact 09/21/24706 Infusion Status Port #1 Capped;Patent;Positive blood return 09/21/24 0707 Peripheral IV Access: 09/21/24 0745 16 gauge Left Hand (Active) Temporarily Retained Foreign Object: No Clinical history: 48-year-old male patient presenting with a 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 He was brought to the OR for elective stereotactic right frontal brain biopsy. Informed consent was obtained after review of the risks, benefits and alternatives of surgical intervention. Description of operative procedure and findings: The patient underwent induction of general anesthesia and endotracheal intubation. He was positioned supine on the OR table. The appropriate vascular access lines and a Interiano catheter were placed. Pressure points were padded. His head was pinned in the Gonzalez and secured to the OR table for positioning for a right frontal approach stereotactic brain biopsy. The [employer] navigation system was registered and the location of the right frontal entry point was confirmed. A small amount of hair wasshaved with clippers and sterile preparation and draping followed. A surgical time-out was performed confirming the patient identity, planned procedure, laterality, allergies, fire risk, wound class,perioperative antibiotics and equipment. 1% lidocaine with epinephrine was infiltrated into the line of the skin incision. The skin was incised sharply with a scalpel. The periosteum was reflected off the underlying bone. The incision was small, 1 cm, to facilitate access of the drill. The [employer] system was brought into position and the joints were adjusted to the pre planned trajectory for the right frontal approach brain biopsy. A powered drill was used to drill a small craniostomy through the right frontal bone. The dura was punctured. The brain biopsy needle was then guided down to the depth of thepredetermined target in the deep frontal mass. Tissue samples were taken for frozen and permanent pathology. The needle was then advanced a cm deeper and additional tissue samples were removed. An additional sample was taken at a depth of 1 cm short of the target. Frozen pathology revealed necrotictissue suspicious of high-grade glioma. The brain biopsy needle was removed. We confirmed good hemostasis. The skin incision was closed with Monocryl 3-0 suture, running continuous. Bacitracin was applied to the closed surgical incision. Needle, sponge and instrument counts were correct at the end of the case. The patient was extubated and transferred to the surgical ICU in stable condition. Frozen pathology - high grade glioma Complications: None Status at end of surgery: Stable Activity: progressive ambulation Surgical wound class: Yes, wound was clean. Patient Class: Surgery Admit. Is this a patient scheduled as an outpatient that needs to be admitted as an inpatient? No Dr. Dupree was present in the OR for the critical portion of the procedure and procedure sign-out. * Blood Attestation - Carmelo Ware MD - 09/21/2024 7:04 AM EST Blood Attestation: ATTESTATION OF INFORMED CONSENT FOR BLOOD: The transfusion of blood and/or blood components were discussed with the patient and/or legal labor union business representative. The risks, benefits and alternatives were reviewed. Questions regarding blood transfusions were answered. The patient /or the patient s legal labor union business representative agree with the plan for transfusion of blood and/or blood components. documented in this [id number] History and physical note* Muriel Sands MD - 09/21/2024 7:26 AM EST Surgical Attestation: I have reviewed the patient's History and Physical Examination. I have personally seen and evaluated the patient, repeating priest portions. There is no significant interval change. Surgery is still indicated. Yes Consent reviewed and signed by patient/family: Yes Operative site verified and marked: Yes Muriel Sands MD Neurological Surgery, PGY-3 Pager: [phone] 09/21/2024 - 7:26 AM [id number] NoteSurgical Attestation: I have reviewed the patient's History and Physical Examination. I have personally seen and evaluated the patient, repeating priest portions. There is no significant interval change. Surgery is still indicated. Yes Consent reviewed and signed by patient/family: Yes Operative site verified and marked: Yes Muriel Sands MD Neurological Surgery, PGY-3 Pager: [phone] 09/21/2024 - 7:26 AMThe [employer] [id number] History and physical note* Muriel Sands MD - 09/21/2024 7:26 AM EST Surgical Attestation: I have reviewed the patient's History and Physical Examination. I have personally seen and evaluated the patient, repeating priest portions. There is no significant interval change. Surgery is still indicated. Yes Consent reviewed and signed by patient/family: Yes Operative site verified and marked: Yes Muriel Sands MD Neurological Surgery, PGY-3 Pager: [phone] 09/21/2024 - 7:26 AM documented in this [id number] Progress note* Blood Attestation - Carmelo Ware MD - 09/21/2024 7:04 AM EST Blood Attestation: ATTESTATION OF INFORMED CONSENT FOR BLOOD: The transfusion of blood and/or blood components were discussed with the patient and/or legal labor union business representative. The risks, benefits and alternatives were reviewed. Questions regarding blood transfusions were answered. The patient /or the patient s legal labor union business representative agree with the plan for transfusion of blood and/or blood components. [facility] Work Phone: [phone]) 782-497712-02-2024 Instructions* Patient Instructions* Kostas Dupree MD - 09/17/2024 11:56 AM EST Plan for OR on 09/25 - will let you know if this changes documented in this [id number] History of Present illness Narrative* Kostas Dupree MD - 09/17/2024 10:52 AM EST [facility] Neurological Surgery follow up note: Anurag Jake 48 year old male Follow up for frontal brain mass Accompanied by , Karyna and [id number] HPI Intermittent ALVAREZ, relief w/ tylenol Disequilibrium present Over the summer, noticed disinterest in hobbies Fatigue has worsened over the last several weeks Per [id number], executive functioning & decision-making has been poor recently No c/o vision changes, seizures, or sensory changes Scheduled for biopsy on 09/25 Hospital Course 09/13/24 - 09/15/24: 48 yo male with no significant past medical history who presented with headache to [facility]. CT head showed intracranial tumor. He was transferred to for NSGY consult. MRI brain showed multifocal glioblastoma. No evidence of primary or metastatic disease in chest/abdomen or pelvis. He was started on dexamethasone. NSGY will schedule follow up with Dr. Dupree on 09/17. He is scheduled for brain biopsy on 09/25. Review of Systems Constitutional: Negative. HENT: Negative. Eyes: Negative. Respiratory: Negative. Cardiovascular: Negative. Gastrointestinal: Negative. Genitourinary: Negative. Musculoskeletal: Negative. Skin: Negative. Neurological: Positive for headaches. Endo/Heme/Allergies: Negative. Psychiatric/Behavioral: Positive for memory loss. No past medical history on file. No past surgical history on file. Vitals: 09/17/24 1109 BP: 132/71 Pulse: 76 Resp: 18 SpO2: 97% Physical Exam HENT: Head: Normocephalic. Mouth/Throat: Mouth: Mucous membranes are moist. Pharynx: Oropharynx is clear. Eyes: Extraocular Movements: Extraocular movements intact. Conjunctiva/sclera: Conjunctivae normal. Pupils: Pupils are equal, round, and reactive to light. Pulmonary: Effort: Pulmonary effort is normal. Musculoskeletal: General: Normal range of motion. Cervical back: Normal range of motion and neck supple. Skin: General: Skin is warm and dry. Neurological: General: No focal deficit present. Mental Status: He is alert and oriented to person, place, and time. Cranial Nerves: No cranial nerve deficit. Sensory: No sensory deficit. Motor: No weakness. Slightly unsteady gait MRI Head W/ + W/O 09/14/24 FINDINGS: TUMOR: Location: There is a 5.1 x 5.0 x 3.8 cm (AP x TV x CC) heterogenous enhancing mass in the frontal lobes crossing midline at the corpus callosum and demonstrates mild internal vascularity, blood product and prominent surrounding vasogenic edema. FLAIR/T2 hyperintensity extends in the bilateral frontal lobes with a small component which courses along the left internal capsule, basal ganglia and thalamus down to the left cerebral peduncle. There are additional enhancing foci which are contiguous with the T2/FLAIR signal measure up to 1.0 cm in bilateral frontal lobes (Series 12, Image 73) and a third enhancing lesion is seen in the left lateral cerebral peduncle (Series 12, Image 108). Enhancement: There is abnormal heterogenous enhancement on postcontrast imaging. Diffusion: Areas of abnormally decreased diffusion are seen, suggesting areas of hypercellular tumor. Other: A few areas of calcification and blood product. Mass effect on the anterior lateral ventricles, right greater than left. No herniation. ADDITIONAL FINDINGS: Remaining Brain Parenchyma: No acute infarct. Ventricles and Sulci: Normal. Skull Base: Craniocervical junction is normal. Expected marrow signal. Vasculature: Major intracranial vessels have normal flow voids suggesting patency. Extracranial structures: The paranasal sinuses and mastoid air cells are clear. The orbits and extracranial soft tissues demonstrate no significant abnormality. 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 Less likely differential diagnoses would include metastasis or lymphoma. CT Head For Navigation 09/15/24 FINDINGS: CT for intraoperative navigation. No change in the partially calcified mass in the frontal lobes extending through the corpus callosum and the focal area of hyperdensity in the left thalamus in keeping with multifocal glioma. Moderate vasogenic edema is present in the right frontal lobe and minimalin the left frontal lobe. IMPRESSION: CT obtained for surgical planning purposes without significant change. Anurag was seen today for new patient, to establish relationship. 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 Plan for right frontal approach brain biopsy on 09/25. Reviewed risks, benefits and alternatives ofsurgery. Relatively inoperable without significant morbidity. Discussed option of ROSSI. Risks include, but are not limited to: perioperative anesthetic risks, infection, bleeding, neurological injury, stroke, and disability. This is not an exhaustive list. Kostas Dupree MD MSc FRCSC FAANS Neurosurgeon [employer] Department of Neurological Surgery [facility] Pager [phone] documented in this [id number] History of Present illness Narrative* Karen Wolf RN - 09/15/2024 12:03 PM EST 09/15/24 1202 Discharge Note Discharge Time 1202 Discharged to: Home Mode of Transport Wheelchair Patient Follow-up and Care Perscriptions E-scribed to pharmacy Patient Instructions Verbal & written discharge instructions given & reviewed;Symptom worsening Verbalized Understanding Patient;Spouse Belongings With patient D/c home with follow-up scheduled for Tuesday09/17/24 @ 10:30. Patient and demonstrated understanding of discharge instructions and symptom worsening. All belongings taken home with patient. * Ryan Koehler PA-C - 09/15/2024 6:51 AM EST Images from the original note were not included. [facility] NEUROSURGERY DAILY PROGRESS NOTE Overnight Events: NAEON CT CAP negative O: Vital sign ranges over the past 24 hours (retrieved 09/15/2024 at 5:11 AM): Tmax (24 hours): 98.4 F (36.9 C) Pulse Av.3 Min: 79 Max: 100 Systolic (24hrs), Av , Min:123 , Max:133 Diastolic (24hrs), Av, Min:74, Max:88 MAP (mmHg) Av mmHg Min: 89 mmHg Max: 100 mmHg Resp Av Min: 16 Max: 18 SpO2 Av % Min: 94 % Max: 98 % Intake/Output Summary (Last 24 hours) at 09/15/2024 0511 Last data filed at 09/14/2024 0757 Gross per 24 hour Intake -- Output 300 ml Net -300 ml Fingerstick Glucose None LABS: CBC/PT/INR 09/14/2024 4:46 AM WBC 13.3 RBC 4.74 Hgb 15.8 Hct 46.1 MCV 97 RDW 13.9 Plt 237 WBC/Diff 09/14/2024 4:46 AM Neutro% 92.9 Lymphs% 4.2 Monos% 2.5 Eos% 0.3 Basos% 0.2 Basic Metabolic Panel 09/14/2024 4:46 AM Na 138 K 4.2 Cl 105 CO2 24 Gap 13 Glu 182 BUN 25 Cr 1.12 Ca 9.7 Hepatic/Biliary/Pancreas No lab values to display. Cardiac None Arterial Blood Gases None CSF Culture No lab values to display. Urine Culture No lab values to display. Pyogen Culture None Blood Culture No lab values to display. Exam A&Ox3 PERRL EOMI FS TM BUE: 02/18, no drift BLE: 02/18 A/P 48 year old male with insignificant PMH who presents for 1 month of occipital ALVAREZ which are usually worse in the morning upon waking. Patient endorses fatigue and states that his feels like he has been experiencing frequent mood swings. Upon arrival to OSH a CTH was conducted which demonstratesa frontal mass with surrounding vasogenic edema for which patient was transferred to [facility] and NSGY was consulted. - Medicine primary - CT brainlab wo today - CT C/A/P completed - Start dexamethasone for edema: - 4mg BID x5 days (ends 09/18) - 2mg BID starting 09/19, continue until surgery - Hold AC/AP - IPCs only, hold chemotherapeutic DVT prophylaxis - Neurosurgery will continue to follow -patient okay to be discharged today -followup with Dr. Dupree at 1030 at [facility] outpatient clinic on 09/17 -will discuss surgical intervention brain biopsy with patient then and will plan to schedule for 09/25 -remainder unchanged Please call anytime with questions or concerns. .Ryan Koehler PA-C Neurological Surgery Pager: [phone] 09/15/2024 - 6:53 AM * Kiana Payan RN - 09/14/2024 10:59 AM EST 09/14/24 1058 Assessment and Discharge Planning Evaluation READMISSION LESS THAN 30 DAYS No READMISSION RISK SCORE IS Low Risk INTERVIEWED Family Name , Lili COGNITIVE STATUS Oriented FUNCTIONAL STATUS PRIOR TO ADMISSION Age Appropriate;Ambulatory HAS ADVANCE DIRECTIVE ON FILE No LIVING SITUATION Home with Family Number of Steps 1 Bedroom floor level 2 Bathroom Floor Level 2 CONNECTED TO MENTAL HEALTH SERVICES No CONNECTED TO COMMUNITY SERVICES No CONNECTED TO SUBSTANCE ABUSE SERVICES No ADMISSION INSURANCE Private Insurance TRANSPORTATION TO AND/OR FROM APPOINTMENTS Drives Self HOME OXYGEN No HOME HEALTH CARE PRIOR TO ADMISSION No DIALYSIS No DISCUSSSED WHAT HELP PATIENT WOULD NEED Yes DISCHARGE DISPOSITION Home Pt is off the floor for scans. Pt's , Karyna is in the room and provided the above information. 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 Per Karyna, pt is robust and hard working. Over the summer he started experiencing headaches. Too soon to tell if pt will have any d/c needs. Might depend if he has surgery or not. Per rounds, pt is not medically cleared for discharge at this time. Discharge is tentatively scheduled for [facility]. CM will continue to monitor for discharge planning needs. Kiana OLIVER RN Inpatient Substance Abuse Services DirectorBody Recall Instructor [phone] Available Tuesday - Tuesday 8:00 AM - 6:00 PM documented in this [id number] NoteDISCHARGE [address] [address] Anurag Joseph Date of : 1975 48 year old male Attending Gio Zamora MD Date of Admission 09/13/2024 Date of Discharge 09/15/24 Final Diagnosis: Frontal mass of brain Hospital Problems as of 09/15/2024 * (Principal) Frontal mass of brain Other headache syndrome No discharge procedures on file. No future appointments. Condition at Discharge unchanged Symptoms to look out for after discharge: New or Severe Pain weakness Activity no restrictions Diet no restrictions Disposition home Functional Status ambulatory For addt'l facility discharge info click 'Facility Discharge' tab. Reason for Hospitalization Brain mass Significant Findings CBC (last 3 years, up to 8 values) 09/14/2024 4:46 AM WBC 13.3 RBC 4.74 Hgb 15.8 Hct 46.1 MCV 97 RDW 13.9 Plt 237 BMP (last 3 years, up to 8 values) 09/14/2024 4:46 AM Na 138 K 4.2 Cl 105 CO2 24 Gap 13 Glu 182 BUN 25 Cr 1.12 Ca 9.7 eGFR 81 INR (no units) Date Value 09/15/2024 1.22 (H) MRI head IMPRESSION: Intraparenchymal mass crossing the midline at the corpus callosum involving bilateral frontal lobes and left basal ganglia/thalamus/cerebral peduncle, with imaging findings most consistent with a multifocal glioblastoma multiforme measuring up to 5.1 cm with subcentimeter satellite lesions. Less likely differential diagnoses would include metastasis or lymphoma. CT C/A/P IMPRESSION: 1. No evidence of primary or metastatic disease in the chest, abdomen, or pelvis. 2. No acute process identified. Hospital Course 48 yo male with no significant past medical history who presented with headache to [facility]. CT head showed intracranial tumor. He was transferred to for NSGY consult. MRI brain showed multifocal glioblastoma. No evidence of primary or metastatic disease in chest/abdomen or pelvis. He was started on dexamethasone. NSGY will schedule follow up with Dr. Dupree on 09/17. He is scheduled for brain biopsy on 09/25. On the day of discharge, patient reported headache is controlled with analgesia. Vitals were stable. 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 Qty: 30 Tablet, Refills: 0 dexAMETHasone (DECADRON) 2 MG tablet Take 2 Tablets by mouth 2 times daily for 4 days, THEN 1 Tablet 2 times daily for 10 days. Qty: 36 Tablet, Refills: 0 More than 30 minutes spent by medicine team in preparing this patient's discharge, including reviewing orders and instructions, examination of the patient and in counseling the patient and/or family on the nature of the illness requiring hospital care. I provided the patient and/or family/surrogate with the following information: Explanation of the primary diagnosis, and secondary diagnoses where applicable, including test results, Discussion of any new medications and treatments, including expected benefits and potential major side effects, Discussion of post-hospital day-to-day care needs, and Follow-up plans, and warning signs that should prompt more urgent follow-upThe [facility] Hospital course Narrative* Gio Zamora MD - 09/15/2024 7:34 AM EST Images from the original note were not included. DISCHARGE SUMMARY [address] [address] Anurag Joseph Date of : 1975 48 year old male Attending Gio Zamora MD Date of Admission 09/13/2024 Date of Discharge 09/15/24 Final Diagnosis: Frontal mass of brain Hospital Problems as of 09/15/2024 * (Principal) Frontal mass of brain Other headache syndrome No discharge procedures on file. No future appointments. Condition at Discharge unchanged Symptoms to look out for after discharge: New or Severe Pain weakness Activity no restrictions Diet no restrictions Disposition home Functional Status ambulatory For addt'l facility discharge info click 'Facility Discharge' tab. 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 Less likely differential diagnoses would include metastasis or lymphoma. CT C/A/P IMPRESSION: 1. No evidence of primary or metastatic disease in the chest, abdomen, or pelvis. 2. No acute process identified. Hospital Course 48 yo male with no significant past medical history who presented with headache to [facility]. CT head showed intracranial tumor. He was transferred to for NSGY consult. MRI brain showed multifocal glioblastoma. No evidence of primary or metastatic disease in chest/abdomen or pelvis. He was started on dexamethasone. NSGY will schedule follow up with Dr. Dupree on 09/17. He is scheduled for brain biopsy on 09/25. On the day of discharge, patient reported headache is controlled with analgesia. Vitals were stable. 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 Qty: 30 Tablet, Refills: 0 dexAMETHasone (DECADRON) 2 MG tablet Take 2 Tablets by mouth 2 times daily for 4 days, THEN 1 Tablet 2 times daily for 10 days. Qty: 36 Tablet, Refills: 0 More than 30 minutes spent by medicine team in preparing this patient's discharge, including reviewing orders and instructions, examination of the patient and in counseling the patient and/or family on the nature of the illness requiring hospital care. I provided the patient and/or family/surrogate with the following information: Explanation of the primary diagnosis, and secondary diagnoses where applicable, including test results, Discussion of any new medications and treatments, including expected benefits and potential major side effects, Discussion of post-hospital day-to-day care needs, and Follow-up plans, and warningsigns that should prompt more urgent follow-up documented in this [id number] Hospital Discharge instructions* Discharge Instructions* Gio Zamora MD - 09/15/2024 7:31 AM EST You were admitted with brain mass. You have been started on steroids dexamethasone. Take dexamethasone 4mg twice daily until 09/18 and then 2mg twice daily followup with Dr. Dupree at 1030 AM at [facility] outpatient clinic on 09/17 Return to ED if you develop new weakness or severe headache documented in this [id number] Note[facility] Overnight Events: NAEON CT CAP negative O: Vital sign ranges over the past 24 hours (retrieved 09/15/2024 at 5:11 AM): Tmax (24 hours): 98.4 ???F (36.9 ???C) Pulse Av.3 Min: 79 Max: 100 Systolic (24hrs), Av , Min:123 , Max:133 Diastolic (24hrs), Av, Min:74, Max:88 MAP (mmHg) Av mmHg Min: 89 mmHg Max: 100 mmHg Resp Av Min: 16 Max: 18 SpO2 Av % Min: 94 % Max: 98 % Intake/Output Summary (Last 24 hours) at 09/15/2024 0511 Last data filed at 09/14/2024 0757 Gross per 24 hour Intake -- Output 300 ml Net -300 ml Fingerstick Glucose None LABS: CBC/PT/INR 09/14/2024 4:46 AM WBC 13.3 RBC 4.74 Hgb 15.8 Hct 46.1 MCV 97 RDW 13.9 Plt 237 WBC/Diff 09/14/2024 4:46 AM Neutro% 92.9 Lymphs% 4.2 Monos% 2.5 Eos% 0.3 Basos% 0.2 Basic Metabolic Panel 09/14/2024 4:46 AM Na 138 K 4.2 Cl 105 CO2 24 Gap 13 Glu 182 BUN 25 Cr 1.12 Ca 9.7 Hepatic/Biliary/Pancreas No lab values to display. Cardiac None Arterial Blood Gases None CSF Culture No lab values to display. Urine Culture No lab values to display. Pyogen Culture None Blood Culture No lab values to display. Exam A AND Ox3 PERRL EOMI FS TM BUE: 02/18, no drift BLE: 02/18 A/P 48 year old male with insignificant PMH who presents for 1 month of occipital ALVAREZ which are usually worse in the morning upon waking. Patient endorses fatigue and states that his feels like he has been experiencing frequent mood swings. Upon arrival to OSH a CTH was conducted which demonstrates a frontal mass with surrounding vasogenic edema for which patient was transferred to [facility] and NSGY was consulted. - Medicine primary - CT brainlab wo today - CT C/A/P completed - Start dexamethasone for edema: - 4mg BID x5 days (ends 09/18) - 2mg BID starting 09/19, continue until surgery - Hold AC/AP - IPCs only, hold chemotherapeutic DVT prophylaxis - Neurosurgery will continue to follow -patient okay to be discharged today -followup with Dr. Dupree at 1030 at [facility] outpatient clinic on 09/17 -will discuss surgical intervention brain biopsy with patient then and will plan to schedule for 09/25 -remainder unchanged Please call anytime with questions or concerns. .Ryan Koehler PA-C Neurological Surgery Pager: [phone] 09/15/2024 - 6:53 AMThe [employer] [id number] Consult note* Julissa Duong, PT - 09/14/2024 3:36 PM ESTAssociated Order(s): IP PHYSICAL THERAPY SERVICE REQUEST PHYSICAL THERAPY ACUTE EVALUATION Referral received, chart reviewed. Patient seen from 1:52 pm to 2:08 pm on 8E unit for 16 minutes. Admit date/time: 09/13/2024 11:59 PM Reason for Admit: 48 yo male admitted with 1 month occipital headaches Diagnosis: large heterogeneous mass centered in the R frontal lobe and extending into the corpus callosum and L frontal lobe Precautions: Mod falls risk Full code Delirium Regular diet Activity as tolerated Procedures this admit: None Past Medical and Surgical History: No past medical history on file. No past surgical history on file. Identification was verified by patient verbalizing his/her name and date of . 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 14 steps to bedroom/bathroom without rails. Can stay first Assistance available: 09/05 Equipment available: none OBJECTIVE: Appearance: Supine in bed at bedside Hospital gown + pants donned Hep-locked IV Behavior: Awake Alert Cooperative Flat affect Minimally verbal Oriented x 3 Follows simple step commands consistently Pain: Site/Location: headache; Pain Scale: 5/10 Pain Relief Interventions Implemented: Positioning, Rest, Relaxation Training, and RN aware and reports patient received medication according to time schedule Passive ROM: Bilateral LE WFL Strength/Active ROM: LE L / R Hip flexors 5 / 5 quadriceps 4+ / 4+ hamstrings 5 / 5 Ankle DF 5 / 5 Sensation: Denies numbness / tingling Proprioception : Bilateral great toes 3/3 Heel / rachel: Bilaterally WFL Cecilia: Bilaterally WFL Mobility: Assistance level N/A Dep Max Mod Min CGA CS Sup DS Mod I I Comments Supine to sit X Sit to/from stand X EOB to no AD Ambulation X 150 feet x 2 with no AD Appropriate speed, short strides, NBOS, mild circumduction of L LE (counterclockwise), decreased foot clearance L, small LOB's but able to correct Stairs X 4 steps with railings Reciprocal, mild unsteadiness, fast speed Seated Balance X X Static: Good Dynamic: Good Standing Balance X X Static: Fair with no AD Dynamic: Fair with no AD Endurance: Fair Patient Education: Instructed Patient and Spouse in roles, goals, treatment plan: demonstrated good verbal understanding. Educated patient NOT to stand or mobilize without staff assist to minimize fall risk and improve safety Patient up in chair with call light in reach. at bedside. DME: With Patients permission ordered no equipment via [employer]. If any questions contact [facility] DME Provider at [phone]. 6 Clicks Basic Mobility PT 09/14/24 Difficulty turning over in bed 4 Difficulty sitting down and standing up from a chair with arms 3 Difficulty moving from lying on back to sitting on the side of the bed 4 Help from another person moving to and from bed to a chair 3 Help from another person to walk in hospital room 3 Help from another person climbing 3-5 steps with a railing 3 PT 6 Clicks Score 20 6 Click Score Guidelines: 1 - Total = Requires total assistance, or cannot do at all. 2 - A lot = Requires a lot of help (maximun to moderate assistance) Can use assistive devices. 3 - A little = Requires a little help (supervision, minimal assistance) Can use assistive devices. 4 - None = Does not require any help and does the activity independently. Can use assistive devices. Progressive Mobility Protocol Score: Level 4 ASSESSMENT: Anurag Joseph is a 48 year old male admitted with occipital headaches and diagnosed with a R frontal lobe mass. At time of evaluation patient was able to mobilize and ambulate around the unit. Patient isfunctionally appropriate for discharge home with 's assistance/supervision PRN once medically cleared. Will continue to follow patient while in hospital as appropriate. Recommend Outpatient NeuroPhysical Therapy. Problems: Decreased balance Decreased education in exercise/precautions Decreased cognition/behavior Impaired safety awareness Rehabilitation Potential: Good Goals (to be achieved by discharge from acute care): Patient to achieve acceptable level of pain control to participate in Therapy sessions. Patient to demonstrate sit to stand transfer to/from multi-level surface independent Patient to ambulate 350 feet independently Patient to ascend/descend 4 steps with no railing, independently Patient to demonstrate appropriate stamina and balance to attain above functional goals without LOBor SOB. PLAN OF CARE: Frequency: Patient to be seen 3-5 times a week Interventions: Functional mobility ROM/Strengthening Home exercise program Discharge planning and equipment ordering as needed Patient /Family education The evaluation findings and treatment plan were discussed with the patient/family. The patient/family indicated understanding and agreement with the plan. Julissa Duong PT, DPT NA = Not Assessed, I = Independent, MS = Modified Independent, Sup = Supervised, Set up = Physical Assistance for Set-up Only, Min = Minimal Assistance, Mod = Moderate Assistance, Max = Max assistance; Dep = Dependent; AROM = Active Range of Motion; PROM = Passive Range of Motion; MMT = Manual Muscle Test; LE = Lower Extremity [id number] NotePHYSICAL THERAPY ACUTE EVALUATION Referral received, chart reviewed. Patient seen from 1:52 pm to 2:08 pm on 8E unit for 16 minutes. Admit date/time: 09/13/2024 11:59 PM Reason for Admit: 48 yo male admitted with 1 month occipital headaches Diagnosis: large heterogeneous mass centered in the R frontal lobe and extending into the corpus callosum and L frontal lobe Precautions: Mod falls risk Full code Delirium Regular diet Activity as tolerated Procedures this admit: None Past Medical and Surgical History: No past medical history on file. No past surgical history on file. Identification was verified by patient verbalizing his/her name and date of . 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 14 steps to bedroom/bathroom without rails. Can stay first Assistance available: 09/05 Equipment available: none OBJECTIVE: Appearance: Supine in bed at bedside Hospital gown + pants donned Hep-locked IV Behavior: Awake Alert Cooperative Flat affect Minimally verbal Oriented x 3 Follows simple step commands consistently Pain: Site/Location: headache; Pain Scale: 5/10 Pain Relief Interventions Implemented: Positioning, Rest, Relaxation Training, and RN aware and reports patient received medication according to time schedule Passive ROM: Bilateral LE WFL Strength/Active ROM: LE L / R Hip flexors 5 / 5 quadriceps 4+ / 4+ hamstrings 5 / 5 Ankle DF 5 / 5 Sensation: Denies numbness / tingling Proprioception : Bilateral great toes 3/3 Heel / rachel: Bilaterally WFL Cecilia: Bilaterally WFL Mobility: Assistance level N/A Dep Max Mod Min CGA CS Sup DS Mod I I Comments Supine to sit X Sit to/from stand X EOB to no AD Ambulation X 150 feet x 2 with no AD Appropriate speed, short strides, NBOS, mild circumduction of L LE (counterclockwise), decreased foot clearance L, small LOB's but able to correct Stairs X 4 steps with railings Reciprocal, mild unsteadiness, fast speed Seated Balance X X Static: Good Dynamic: Good Standing Balance X X Static: Fair with no AD Dynamic: Fair with no AD Endurance: Fair Patient Education: Instructed Patient and Spouse in roles, goals, treatment plan: demonstrated good verbal understanding. Educated patient NOT to stand or mobilize without staff assist to minimize fall risk and improve safety Patient up in chair with call light in reach. at bedside. DME: With Patients permission ordered no equipment via [employer]. If any questions contact [facility] DME Provider at [phone]. 1 Clicks Basic Mobility PT 09/14/24 Difficulty turning over in bed 4 Difficulty sitting down and standing up from a chair with arms 3 Difficulty moving from lying on back to sitting on the side of the bed 4 Help from another person moving to and from bed to a chair 3 Help from another person to walk in hospital room 3 Help from another person climbing 3-5 steps with a railing 3 PT 6 Clicks Score 20 6 Click Score Guidelines: 1 - Total = Requires total assistance, or cannot do at all. 2 - A lot = Requires a lot of help (maximun to moderate assistance) Can use assistive devices. 3 - A little = Requires a little help (supervision, minimal assistance) Can use assistive devices. 4 - None = Does not require any help and does the activity independently. Can use assistive devices. Progressive Mobility Protocol Score: Level 4 ASSESSMENT: Anurag Joseph is a 48 year old male admitted with occipital headaches and diagnosed with a R frontal lobe mass. At time of evaluation patient was able to mobilize and ambulate around the unit. Patient is functionally appropriate for discharge home with 's assistance/supervision PRN once medically cleared. Will continue to follow patient while in hospital as appropriate. Recommend Outpatient Neuro Physical Therapy. Problems: Decreased balance Decreased education in exercise/precautions Decreased cognition/behavior Impaired safety awareness Rehabilitation Potential: Good Goals (to be achieved by discharge from acute care): Patient to achieve acceptable level of pain control to participate in Therapy sessions. Patient to demonstrate sit to stand transfer to/from multi-level surface independent Patient to ambulate 350 feet independently Patient to ascend/descend 4 steps with no railing, independently Patient to demonstrate appropriate stamina and balance to attain above functional goals without LOB or SOB. PLAN OF CARE: Frequency: Patient to be seen 3-5 times a week Interventions: Functional mobility ROM/Streng (more content not included)...[employer] [id number] Consult note* Julissa Duong, PT - 09/14/2024 3:36 PM ESTAssociated Order(s): IP PHYSICAL THERAPY SERVICE REQUEST PHYSICAL THERAPY ACUTE EVALUATION Referral received, chart reviewed. Patient seen from 1:52 pm to 2:08 pm on 8E unit for 16 minutes. Admit date/time: 09/13/2024 11:59 PM Reason for Admit: 48 yo male admitted with 1 month occipital headaches Diagnosis: large heterogeneous mass centered in the R frontal lobe and extending into the corpus callosum and L frontal lobe Precautions: Mod falls risk Full code Delirium Regular diet Activity as tolerated Procedures this admit: None Past Medical and Surgical History: No past medical history on file. No past surgical history on file. Identification was verified by patient verbalizing his/her name and date of . 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 14 steps to bedroom/bathroom without rails. Can stay first Assistance available: 09/05 Equipment available: none OBJECTIVE: Appearance: Supine in bed at bedside Hospital gown + pants donned Hep-locked IV Behavior: Awake Alert Cooperative Flat affect Minimally verbal Oriented x 3 Follows simple step commands consistently Pain: Site/Location: headache; Pain Scale: 5/10 Pain Relief Interventions Implemented: Positioning, Rest, Relaxation Training, and RN aware and reports patient received medication according to time schedule Passive ROM: Bilateral LE WFL Strength/Active ROM: LE L / R Hip flexors 5 / 5 quadriceps 4+ / 4+ hamstrings 5 / 5 Ankle DF 5 / 5 Sensation: Denies numbness / tingling Proprioception : Bilateral great toes 3/3 Heel / rachel: Bilaterally WFL Cecilia: Bilaterally WFL Mobility: Assistance level N/A Dep Max Mod Min CGA CS Sup DS Mod I I Comments Supine to sit X Sit to/from stand X EOB to no AD Ambulation X 150 feet x 2 with no AD Appropriate speed, short strides, NBOS, mild circumduction of L LE (counterclockwise), decreased foot clearance L, small LOB's but able to correct Stairs X 4 steps with railings Reciprocal, mild unsteadiness, fast speed Seated Balance X X Static: Good Dynamic: Good Standing Balance X X Static: Fair with no AD Dynamic: Fair with no AD Endurance: Fair Patient Education: Instructed Patient and Spouse in roles, goals, treatment plan: demonstrated good verbal understanding. Educated patient NOT to stand or mobilize without staff assist to minimize fall risk and improve safety Patient up in chair with call light in reach. at bedside. DME: With Patients permission ordered no equipment via [employer]. If any questions contact [facility] DME Provider at [phone]. 6 Clicks Basic Mobility PT 09/14/24 Difficulty turning over in bed 4 Difficulty sitting down and standing up from a chair with arms 3 Difficulty moving from lying on back to sitting on the side of the bed 4 Help from another person moving to and from bed to a chair 3 Help from another person to walk in hospital room 3 Help from another person climbing 3-5 steps with a railing 3 PT 6 Clicks Score 20 6 Click Score Guidelines: 1 - Total = Requires total assistance, or cannot do at all. 2 - A lot = Requires a lot of help (maximun to moderate assistance) Can use assistive devices. 3 - A little = Requires a little help (supervision, minimal assistance) Can use assistive devices. 4 - None = Does not require any help and does the activity independently. Can use assistive devices. Progressive Mobility Protocol Score: Level 4 ASSESSMENT: Anurag Joseph is a 48 year old male admitted with occipital headaches and diagnosed with a R frontal lobe mass. At time of evaluation patient was able to mobilize and ambulate around the unit. Patient isfunctionally appropriate for discharge home with 's assistance/supervision PRN once medically cleared. Will continue to follow patient while in hospital as appropriate. Recommend Outpatient NeuroPhysical Therapy. Problems: Decreased balance Decreased education in exercise/precautions Decreased cognition/behavior Impaired safety awareness Rehabilitation Potential: Good Goals (to be achieved by discharge from acute care): Patient to achieve acceptable level of pain control to participate in Therapy sessions. Patient to demonstrate sit to stand transfer to/from multi-level surface independent Patient to ambulate 350 feet independently Patient to ascend/descend 4 steps with no railing, independently Patient to demonstrate appropriate stamina and balance to attain above functional goals without LOBor SOB. PLAN OF CARE: Frequency: Patient to be seen 3-5 times a week Interventions: Functional mobility ROM/Strengthening Home exercise program Discharge planning and equipment ordering as needed Patient /Family education The evaluation findings and treatment plan were discussed with the patient/family. The patient/family indicated understanding and agreement with the plan. Julissa Duong, PT, DPT NA = Not Assessed, I = Independent, MS = Modified Independent, Sup = Supervised, Set up = Physical Assistance for Set-up Only, Min = Minimal Assistance, Mod = Moderate Assistance, Max = Max assistance; Dep = Dependent; AROM = Active Range of Motion; PROM = Passive Range of Motion; MMT = Manual Muscle Test; LE = Lower Extremity * Sarah Chavez, OT - 09/14/2024 2:11 PM ESTAssociated Order(s): IP OCCUPATIONAL THERAPY SERVICE REQUEST OCCUPATIONAL THERAPY INITIAL EVALUATION Patient seen from 1353 to 1409 on GC8E unit for 16 minutes. 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 Less likely differential diagnoses would include metastasis or lymphoma. Past Medical and Surgical History: PMH: No past medical history on file. PSH: No past surgical history on file. 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 Full Bathroom on 1st or 2nd level. Bedroom on 2 level. Equipment available at home: no equipment OBJECTIVE: Patient Identification: patient's id band and date of . Risks and benefits of occupational therapy: Patient informed of risks and benefits of treatment Appearance: supine in bed on arrival, hospital gown, hep-locked IV, glasses, at bedside Alertness: WFL Affect: flat Cooperation/Behavior: Appropriate dialogue with therapist, cooperative Communication: WFL however minimally verbal Pain: Pain ratin/10, Location: [place] Pain Relief Interventions Implemented: RN aware and reports patient received medication according to time schedule Self Care: Assistance Level Dep Max Mod Min CG CS DS MS I Set-Up Comment Feeding x Grooming/Hygiene x Anticipate standing at sink Bathing:UB x Simulated sponge bathing Bathing:LB x Simulated sponge bathing Dressing:UB x Simulated with functional reach Dressing: LB x Threaded BLEs through pants seated, managed up over hips in standing Toileting x Anticipate for clothing management Transfers/Bed Mobility: Assistance Level Dep Max Mod Min CG CS DS MS I Set-Up Comment Toilet Transfers x Anticipate based on bed transfer Bed Transfers x Sit to stand from EOB. Greater than household distance functional mobility around unit without AD, mildly unsteady with 1 minor LOB during multidirectional head turns however pt able to catch self. Bed Mobility x Supine to sit EOB via log roll with HOB flat Patient seated in chair end of session with call light and phone within reach and all current needsmet. Instructed pt to use call light for nursing assist for return to bed or for mobility needs; ptvoiced understanding. Endurance for Self Care: WFL Static Sitting Balance: WFL Dynamic Sitting Balance: Good UE Motor: BUE AROM WFL, MMT 5/5 throughout, sensation intact Vision/Perception: WFL, glasses at baseline Cognition: Orientation: Oriented to person, place, and date Follows Commands: Able to follow two step commands Attention: WNL Memory: WFL Problem Solving: Needs further assessment Safety/Judgement: performs functional transfer safely without cues Sequencing: Able to sequence simple ADLs without cues. Other Specialized Tests: None Patient/Family Education: Instructed patient in roles of therapy, OOBTC for all meals, encouraged ambulation while in house Patient up in chair with call light in reach. DME: With Patients permission ordered no equipment via [employer]. If any questions contact [facility] DME Provider at [phone]. 6 Clicks Daily Activity OT 09/14/24 Help from another person Eating meals 4 Help from another person taking care of personal grooming 3 Help from another person bathing 3 Help from another person putting on and taking off regular upper body clothing 3 Help from another person putting on and taking off regular lower body clothing 3 Help from another person toileting 3 OT 6 Clicks Score 19 6 Click Score Guidelines: 1 - Unable = Total/Dependent Assist 2 - A lot = Max/Moderate Assist 3 - A little = Minimum/Contact Guard Assist/Supervision 4 - Non = Modified [place]/Independent ASSESSMENT: Patient is functionally appropriate for discharge home once medically cleared. Will continue to follow patient while in hospital as appropriate. Rehabilitation Potential: Good Problem List: decreased ADLs, decreased functional transfers/mobility, impaired balance, decreased home management tasks/IADLs, decreased functional activity tolerance, and increased pain Goals (to be achieved by discharge from acute care): Patient will perform grooming with Independent Patient will dress lower body with Independent Patient will perform bathing with Independent Patient will perform toileting with Independent Patient will perform bed transfers with Independent Patient will perform commode transfers with Independent PLAN: Anurag Joseph will be seen 1-3 times a week. Treatment to include: Functional AROM/Strengthening, functional mobility training, ADL retraining, home management retraining, functional task simulation, adaptive equipment / compensatory strategy training, patient / family education and discharge planning, and pain Management able to discuss the evaluation findings and treatment plan with the patient/family. The patient/family did participate in the development of plan and goals. Sarah Chavez OTR/L NA = Not Assessed, I = Independent, MS = Modified Independent, Sup = Supervised, Set up = Physical Assistance for Set-up Only, Min = Minimal Assistance, Mod = Moderate Assistance, Max = Max assistance; Dep = Dependent; AROM = Active Range of Motion;PROM=Passive Rangeof Motion; MMT = Manual Muscle Test; UB = Upper Body; LB = Lower Body documented in this [id number] Consult note* Sarah Chavez OT - 09/14/2024 2:11 PM ESTAssociated Order(s): IP OCCUPATIONAL THERAPY SERVICE REQUEST OCCUPATIONAL THERAPY INITIAL EVALUATION Patient seen from 1353 to 1409 on GC8E unit for 16 minutes. 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 Less likely differential diagnoses would include metastasis or lymphoma. Past Medical and Surgical History: PMH: No past medical history on file. PSH: No past surgical history on file. 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 Full Bathroom on 1st or 2nd level. Bedroom on 2 level. Equipment available at home: no equipment OBJECTIVE: Patient Identification: patient's id band and date of . Risks and benefits of occupational therapy: Patient informed of risks and benefits of treatment Appearance: supine in bed on arrival, hospital gown, hep-locked IV, glasses, at bedside Alertness: WFL Affect: flat Cooperation/Behavior: Appropriate dialogue with therapist, cooperative Communication: WFL however minimally verbal Pain: Pain ratin/10, Location: [place] Pain Relief Interventions Implemented: RN aware and reports patient received medication according to time schedule Self Care: Assistance Level Dep Max Mod Min CG CS DS MS I Set-Up Comment Feeding x Grooming/Hygiene x Anticipate standing at sink Bathing:UB x Simulated sponge bathing Bathing:LB x Simulated sponge bathing Dressing:UB x Simulated with functional reach Dressing: LB x Threaded BLEs through pants seated, managed up over hips in standing Toileting x Anticipate for clothing management Transfers/Bed Mobility: Assistance Level Dep Max Mod Min CG CS DS MS I Set-Up Comment Toilet Transfers x Anticipate based on bed transfer Bed Transfers x Sit to stand from EOB. Greater than household distance functional mobility around unit without AD, mildly unsteady with 1 minor LOB during multidirectional head turns however pt able to catch self. Bed Mobility x Supine to sit EOB via log roll with HOB flat Patient seated in chair end of session with call light and phone within reach and all current needsmet. Instructed pt to use call light for nursing assist for return to bed or for mobility needs; ptvoiced understanding. Endurance for Self Care: WFL Static Sitting Balance: WFL Dynamic Sitting Balance: Good UE Motor: BUE AROM WFL, MMT 5/5 throughout, sensation intact Vision/Perception: WFL, glasses at baseline Cognition: Orientation: Oriented to person, place, and date Follows Commands: Able to follow two step commands Attention: WNL Memory: WFL Problem Solving: Needs further assessment Safety/Judgement: performs functional transfer safely without cues Sequencing: Able to sequence simple ADLs without cues. Other Specialized Tests: None Patient/Family Education: Instructed patient in roles of therapy, OOBTC for all meals, encouraged ambulation while in house Patient up in chair with call light in reach. DME: With Patients permission ordered no equipment via [employer]. If any questions contact [facility] DME Provider at [phone]. 6 Clicks Daily Activity OT 09/14/24 Help from another person Eating meals 4 Help from another person taking care of personal grooming 3 Help from another person bathing 3 Help from another person putting on and taking off regular upper body clothing 3 Help from another person putting on and taking off regular lower body clothing 3 Help from another person toileting 3 OT 6 Clicks Score 19 6 Click Score Guidelines: 1 - Unable = Total/Dependent Assist 2 - A lot = Max/Moderate Assist 3 - A little = Minimum/Contact Guard Assist/Supervision 4 - Non = Modified Peach/Independent ASSESSMENT: Patient is functionally appropriate for discharge home once medically cleared. Will continue to follow patient while in hospital as appropriate. Rehabilitation Potential: Good Problem List: decreased ADLs, decreased functional transfers/mobility, impaired balance, decreased home management tasks/IADLs, decreased functional activity tolerance, and increased pain Goals (to be achieved by discharge from acute care): Patient will perform grooming with Independent Patient will dress lower body with Independent Patient will perform bathing with Independent Patient will perform toileting with Independent Patient will perform bed transfers with Independent Patient will perform commode transfers with Independent PLAN: Anurag Joseph will be seen 1-3 times a week. Treatment to include: Functional AROM/Strengthening, functional mobility training, ADL retraining, home management retraining, functional task simulation, adaptive equipment / compensatory strategy training, patient / family education and discharge planning, and pain Management able to discuss the evaluation findings and treatment plan with the patient/family. The patient/family did participate in the development of plan and goals. Sarah Chavez OTR/L NA = Not Assessed, I = Independent, MS = Modified Independent, Sup = Supervised, Set up = Physical Assistance for Set-up Only, Min = Minimal Assistance, Mod = Moderate Assistance, Max = Max assistance; Dep = Dependent; AROM = Active Range of Motion;PROM=Passive Rangeof Motion; MMT = Manual Muscle Test; UB = Upper Body; LB = Lower Body [id number] NoteOCCUPATIONAL THERAPY INITIAL EVALUATION Patient seen from 1353 to 1409 on GC8E unit for 16 minutes. 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 Less likely differential diagnoses would include metastasis or lymphoma. Past Medical and Surgical History: PMH: No past medical history on file. PSH: No past surgical history on file. 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 Full Bathroom on 1st or 2nd level. Bedroom on 2 level. Equipment available at home: no equipment OBJECTIVE: Patient Identification: patient's id band and date of . Risks and benefits of occupational therapy: Patient informed of risks and benefits of treatment Appearance: supine in bed on arrival, hospital gown, hep-locked IV, glasses, at bedside Alertness: WFL Affect: flat Cooperation/Behavior: Appropriate dialogue with therapist, cooperative Communication: WFL however minimally verbal Pain: Pain ratin/10, Location: [place] Pain Relief Interventions Implemented: RN aware and reports patient received medication according to time schedule Self Care: Assistance Level Dep Max Mod Min CG CS DS MS I Set-Up Comment Feeding x Grooming/Hygiene x Anticipate standing at sink Bathing:UB x Simulated sponge bathing Bathing:LB x Simulated sponge bathing Dressing:UB x Simulated with functional reach Dressing: LB x Threaded BLEs through pants seated, managed up over hips in standing Toileting x Anticipate for clothing management Transfers/Bed Mobility: Assistance Level Dep Max Mod Min CG CS DS MS I Set-Up Comment Toilet Transfers x Anticipate based on bed transfer Bed Transfers x Sit to stand from EOB. Greater than household distance functional mobility around unit without AD, mildly unsteady with 1 minor LOB during multidirectional head turns however pt able to catch self. Bed Mobility x Supine to sit EOB via log roll with HOB flat Patient seated in chair end of session with call light and phone within reach and all current needs met. Instructed pt to use call light for nursing assist for return to bed or for mobility needs; pt voiced understanding. Endurance for Self Care: WFL Static Sitting Balance: WFL Dynamic Sitting Balance: Good UE Motor: BUE AROM WFL, MMT 5/5 throughout, sensation intact Vision/Perception: WFL, glasses at baseline Cognition: Orientation: Oriented to person, place, and date Follows Commands: Able to follow two step commands Attention: WNL Memory: WFL Problem Solving: Needs further assessment Safety/Judgement: performs functional transfer safely without cues Sequencing: Able to sequence simple ADLs without cues. Other Specialized Tests: None Patient/Family Education: Instructed patient in roles of therapy, OOBTC for all meals, encouraged ambulation while in house Patient up in chair with call light in reach. DME: With Patients permission ordered no equipment via [employer]. If any questions contact [facility] DME Provider at [phone]. 6 Clicks Daily Activity OT 09/14/24 Help from another person Eating meals 4 Help from another person taking care of personal grooming 3 Help from another person bathing 3 Help from another person putting on and taking off regular upper body clothing 3 Help from another person putting on and taking off regular lower body clothing 3 Help from another person toileting 3 OT 6 Clicks Score 19 6 Click Score Guidelines: 1 - Unable = Total/Dependent Assist 2 - A lot = Max/Moderate Assist 3 - A little = Minimum/Contact Guard Assist/Supervision 4 - Non = Modified Peach/Independent ASSESSMENT: Patient is functionally appropriate for discharge home once medically cleared. Will continue to follow patient while in hospital as appropriate. Rehabilitation Potential: Good Problem List: decreased ADLs, decreased functional transfers/mobility, (more content not included)...[employer] [id number] NoteNeurosurgery Treatment Plan Note Interval updates: MRI brain w/wo contrast completed and reviewed with Dr. Dupree. Radiologist read pending, but in brief, imaging shows a large heterogeneous mass centered in the R frontal lobe and extending into the corpus callosum and L frontal lobe. There is surrounding vasogenic edema and mass effect. Plan: - Medicine primary - CT C/A/P pending - Start dexamethasone for edema: - 4mg BID x5 days (ends 09/18) - 2mg BID starting 09/19, continue until surgery - Stereotactic brain biopsy scheduled 09/18 - Hold AC/AP - IPCs only, hold chemotherapeutic DVT prophylaxis - Neurosurgery will continue to follow Patient clinical information and imaging were reviewed and discussed with attending, Dr. Dupree who agrees with the above plan. Please call anytime with questions or concerns. Gail Hanley MD Neurosurgery PGY-1 Pager: [phone] 09/14/24 - 1:17 PMTMercy Health [facility] HospitalRevokom [id number] Plan of care note* Treatment Plan Note - Gail Hanley MD - 09/14/2024 1:17 PM EST Neurosurgery Treatment Plan Note Interval updates: MRI brain w/wo contrast completed and reviewed with Dr. Dupree. Radiologist read pending, but in brief, imaging shows a large heterogeneous mass centered in the R frontal lobe and extending into the corpus callosum and L frontal lobe. There is surrounding vasogenic edema and mass effect. Plan: - Medicine primary - CT C/A/P pending - Start dexamethasone for edema: - 4mg BID x5 days (ends 09/18) - 2mg BID starting 09/19, continue until surgery - Stereotactic brain biopsy scheduled 09/18 - Hold AC/AP - IPCs only, hold chemotherapeutic DVT prophylaxis - Neurosurgery will continue to follow Patient clinical information and imaging were reviewed and discussed with attending, Dr. Dupree who agrees with the above plan. Please call anytime with questions or concerns. Gail Hanley MD Neurosurgery PGY-1 Pager: [phone] 09/14/24 - 1:17 PM [facility] Centerro[facility] Work Phone: [phone] Miscellaneous Notes* Treatment Plan Note - Gail Hanley MD - 09/14/2024 1:17 PM EST Neurosurgery Treatment Plan Note Interval updates: MRI brain w/wo contrast completed and reviewed with Dr. Dupree. Radiologist read pending, but in brief, imaging shows a large heterogeneous mass centered in the R frontal lobe and extending into the corpus callosum and L frontal lobe. There is surrounding vasogenic edema and mass effect. Plan: - Medicine primary - CT C/A/P pending - Start dexamethasone for edema: - 4mg BID x5 days (ends 09/18) - 2mg BID starting 09/19, continue until surgery - Stereotactic brain biopsy scheduled 09/18 - Hold AC/AP - IPCs only, hold chemotherapeutic DVT prophylaxis - Neurosurgery will continue to follow Patient clinical information and imaging were reviewed and discussed with attending, Dr. Dupree who agrees with the above plan. Please call anytime with questions or concerns. Gail Hanley MD Neurosurgery PGY-1 Pager: [phone] 09/14/24 - 1:17 PM documented in this [id number] Note09/14/24 1058 Assessment and Discharge Planning Evaluation READMISSION LESS THAN 30 DAYS No READMISSION RISK SCORE IS Low Risk INTERVIEWED Family Name , Lili COGNITIVE STATUS Oriented FUNCTIONAL STATUS PRIOR TO ADMISSION Age Appropriate;Ambulatory HAS ADVANCE DIRECTIVE ON FILE No LIVING SITUATION Home with Family Number of Steps 1 Bedroom floor level 2 Bathroom Floor Level 2 CONNECTED TO MENTAL HEALTH SERVICES No CONNECTED TO COMMUNITY SERVICES No CONNECTED TO SUBSTANCE ABUSE SERVICES No ADMISSION INSURANCE Private Insurance TRANSPORTATION TO AND/OR FROM APPOINTMENTS Drives Self HOME OXYGEN No HOME HEALTH CARE PRIOR TO ADMISSION No DIALYSIS No DISCUSSSED WHAT HELP PATIENT WOULD NEED Yes DISCHARGE DISPOSITION Home Pt is off the floor for scans. Pt's , Karyna is in the room and provided the above information. 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 Per Karyna, pt is robust and hard working. Over the summer he started experiencing headaches. Too soon to tell if pt will have any d/c needs. Might depend if he has surgery or not. Per rounds, pt is not medically cleared for discharge at this time. Discharge is tentatively scheduled for [facility]. CM will continue to monitor for discharge planning needs. Kiana OLIVER RN Inpatient Substance Abuse Services DirectorBody Recall Instructor [phone] Available Tuesday - Tuesday 8:00 AM - 6:00 [facility] [id number] History and physical note* Linda Valenzuela, - 09/14/2024 6:58 AM EST Images from the original note were not included. General Internal Medicine History and Physical Note HISTORY OF PRESENT ILLNESS: Anurag Joseph, a 48-year-old male with no significant past medical history and not on any medications, presented to the emergency department from [facility] with a complaint of headache. The history was primarily obtained from the patient's , as Mr. Joseph was passively refusing to participate in most of the interview and exam. He has been experiencing a progressively worsening occipital headache for the past month, which has spread to the bilateral trapezius areas. The headache has gradually worsened over this period to about an 8 out of 10 intensity. He has not experienced any vision blurring, visual artifacts, limb weakness, numbness. However, he has been feeling profoundly fatigued for the past several days, and started having mood swings, which prompted his visit to the ED today. He denies nausea, vomiting, unintended weight loss, and hallucinations. Review of Systems Constitutional: Negative for chills and fever. Eyes: Negative for blurred vision and double vision. Respiratory: Negative for cough and shortness of breath. Cardiovascular: Negative for chest pain and palpitations. Gastrointestinal: Negative for nausea and vomiting. Genitourinary: Negative for dysuria and hematuria. Musculoskeletal: Negative for back pain and myalgias. Neurological: Positive for headaches. Negative for sensory change and focal weakness. Psychiatric/Behavioral: Mood swings Subjective No past medical history on file. There is no previous surgical history on file. Social History Socioeconomic History Marital status: Tobacco Use Smoking status: Never Smokeless tobacco: Never Social Drivers of Health Food Insecurity: Unknown (09/14/2024) Hunger Vital Sign Worried About Running Out of Food in the Last Year: Never true Family history reviewed and non-contributory to the current encounter. Vitals Recorded in This Encounter 09/14/2024 0010 09/14/2024 0400 09/14/2024 0416 09/14/2024 0419 BP: 149/91 139/90 -- 136/92 Pulse: 104 96 -- 89 Resp: 19 16 -- 16 Temp: 98.4 F (36.9 C) -- -- 98.2 F (36.8 C) Temp src: Oral -- -- Oral SpO2: 96 % 97 % -- 96 % Weight: -- -- -- 218 lb 1.6 oz (98.9 kg) Height: -- -- 6' 1 (1.854 m) 6' 1 (1.854 m) Physical exam: - General: Patient resting comfortably, in no acute distress. - Neurological: Alert and oriented x3, strength 5/5 in all four limbs, sensation intact throughout all four limbs and cranial nerve V distribution, no ataxia. - Eyes: EOMI, PERRL, conjunctivae normal. - ENT: Oral mucosa moist, no lesions, exudates, or erythema. - Cardiovascular: Heart regular rate and rhythm, no murmurs, gallops, or rubs. - Respiratory: Lungs clear to auscultation bilaterally, no wheezes, crackles, or ronchi. - Gastrointestinal: Abdomen soft, non-tender, bowel sounds present in all four quadrants. - Extremities: Pulses 2+ in all four limbs, capillary refill < 2 seconds. No intake or output data in the 24 hours ending 09/14/24 0658 Objective LABS: BMP (last 3 years, up to 8 values) 09/14/2024 4:46 AM Na 138 K 4.2 Cl 105 CO2 24 Gap 13 Glu 182 BUN 25 Cr 1.12 Ca 9.7 eGFR 81 CBC (last 3 years, up to 8 values) 09/14/2024 4:46 AM WBC 13.3 RBC 4.74 Hgb 15.8 Hct 46.1 MCV 97 RDW 13.9 Plt 237 WBC/Diff 09/14/2024 4:46 AM Neutro% 92.9 Lymphs% 4.2 Monos% 2.5 Eos% 0.3 Basos% 0.2 LFT's (last 3 years, up to 8 values) No lab values to display. Cardiac None Lipids (last 3 years, up to 8 values) No lab values to display. No results found for: HBA1C Fingerstick Glucose None CULTURES: Urine Culture No lab values to display. Blood Culture No lab values to display. Sputum Culture None Pyogen Culture None CSF Culture No lab values to display. Other studies / imaging reviewed: SR-Brain/Head without Contrast IMPORT Result Date: 09/13/2024 Narrative: Images were obtained outside of [facility] Current Facility-Administered Medications Medication Dose Route Frequency Last Rate Last Admin acetaminophen (TYLENOL) tablet 650 mg Oral Q4H PRN ondansetron (ZOFRAN-ODT) disintegrating tablet 4 mg Oral Q6H PRN melatonin tablet 3 mg Oral At Bedtime PRN ASSESSMENT & PLAN: #Brain Mass #Headache - Evaluated by neurosurgery team in the ED. Noted his frontal brain mass demonstrated on outside hospital CT of the head with surrounding vasogenic edema. - Neurosurgery recommended MRI of the head with and without contrast, ordered - Neurosurgery recommended CT of the chest, abdomen, and pelvis with contrast for staging - No steroids recommended by neurosurgery. - Hold all anticoagulation. - Will follow up with neurosurgery regarding management plan going forward pending the above imaging study results. - Tylenol and Toradol for headache. If severe, give migraine cocktail. Currently, well controlled. - Zofran PRN for nausea. - Get basic labs (especially BMP to assess for any hypothalamic related sodium disturbance). Advanced Care Planning Purpose of Encounter: Advanced care planning in light of frontal brain mass Parties in Attendance: Patient, Dr. Linda Valenzuela, DO Decisional Capacity: Able to fully participate in medical decision making. Code Status: Full code Disposition: Home pending treatment and clinical recovery / stability. Anticipate <2 hospital days (observation status). Plan of care discussed with: Patient, at bedside, staff VTE Prophylaxis: No AC, bilateral SCDs only Billing level: 2-moderate Criteria: Total time spent on this case including chart review, patient interview and exam, medication reconciliation, review of code status, cost recorder, and documentation: 58 minutes. Linda Valenzuela D.O. 09/14/24 6:58 AM [My coverage for this patient is limited to the hours between 6PM and 7AM the following day. Pleasepage listed 1st call provider outside of those hours. Thank you.] [facility] [id number] NoteGeneral Internal Medicine History and Physical Note HISTORY OF PRESENT ILLNESS: Anurag Joseph, a 48-year-old male with no significant past medical history and not on any medications, presented to the emergency department from [facility] with a complaint of headache. The history was primarily obtained from the patient's , as Mr. Joseph was passively refusing to participate in most of the interview and exam. He has been experiencing a progressively worsening occipital headache for the past month, which has spread to the bilateral trapezius areas. The headache has gradually worsened over this period to about an 8 out of 10 intensity. He has not experienced any vision blurring, visual artifacts, limb weakness, numbness. However, he has been feeling profoundly fatigued for the past several days, and started having mood swings, which prompted his visit to the ED today. He denies nausea, vomiting, unintended weight loss, and hallucinations. Review of Systems Constitutional: Negative for chills and fever. Eyes: Negative for blurred vision and double vision. Respiratory: Negative for cough and shortness of breath. Cardiovascular: Negative for chest pain and palpitations. Gastrointestinal: Negative for nausea and vomiting. Genitourinary: Negative for dysuria and hematuria. Musculoskeletal: Negative for back pain and myalgias. Neurological: Positive for headaches. Negative for sensory change and focal weakness. Psychiatric/Behavioral: Mood swings Subjective No past medical history on file. There is no previous surgical history on file. Social History Socioeconomic History Marital status: Tobacco Use Smoking status: Never Smokeless tobacco: Never Social Drivers of Health Food Insecurity: Unknown (09/14/2024) Hunger Vital Sign Worried About Running Out of Food in the Last Year: Never true Family history reviewed and non-contributory to the current encounter. Vitals Recorded in This Encounter 09/14/2024 0010 09/14/2024 0400 09/14/2024 0416 09/14/2024 0419 BP: 149/91 139/90 -- 136/92 Pulse: 104 96 -- 89 Resp: 19 16 -- 16 Temp: 98.4 ???F (36.9 ???C) -- -- 98.2 ???F (36.8 ???C) Temp src: Oral -- -- Oral SpO2: 96 % 97 % -- 96 % Weight: -- -- -- 218 lb 1.6 oz (98.9 kg) Height: -- -- 6' 1 (1.854 m) 6' 1 (1.854 m) Physical exam: - General: Patient resting comfortably, in no acute distress. - Neurological: Alert and oriented x3, strength 5/5 in all four limbs, sensation intact throughout all four limbs and cranial nerve V distribution, no ataxia. - Eyes: EOMI, PERRL, conjunctivae normal. - ENT: Oral mucosa moist, no lesions, exudates, or erythema. - Cardiovascular: Heart regular rate and rhythm, no murmurs, gallops, or rubs. - Respiratory: Lungs clear to auscultation bilaterally, no wheezes, crackles, or ronchi. - Gastrointestinal: Abdomen soft, non-tender, bowel sounds present in all four quadrants. - Extremities: Pulses 2+ in all four limbs, capillary refill < 2 seconds. No intake or output data in the 24 hours ending 09/14/24 0658 Objective LABS: BMP (last 3 years, up to 8 values) 09/14/2024 4:46 AM Na 138 K 4.2 Cl 105 CO2 24 Gap 13 Glu 182 BUN 25 Cr 1.12 Ca 9.7 eGFR 81 CBC (last 3 years, up to 8 values) 09/14/2024 4:46 AM WBC 13.3 RBC 4.74 Hgb 15.8 Hct 46.1 MCV 97 RDW 13.9 Plt 237 WBC/Diff 09/14/2024 4:46 AM Neutro% 92.9 Lymphs% 4.2 Monos% 2.5 Eos% 0.3 Basos% 0.2 LFT's (last 3 years, up to 8 values) No lab values to display. Cardiac None Lipids (last 3 years, up to 8 values) No lab values to display. No results found for: HBA1C Fingerstick Glucose None CULTURES: Urine Culture No lab values to display. Blood Culture No lab values to display. Sputum Culture None Pyogen Culture None CSF Culture No lab values to display. Other studies / imaging reviewed: SR-Brain/Head without Contrast IMPORT Result Date: 09/13/2024 Narrative: Images were obtained outside of [facility] Current Facility-Administered Medications Medication Dose Route Frequency Last Rate Last Admin acetaminophen (TYLENOL) tablet 650 mg Oral Q4H PRN ondansetron (ZOFRAN-ODT) disintegrating tablet 4 mg Oral Q6H PRN melatonin tablet 3 mg Oral At Bedtime PRN ASSESSMENT AND PLAN: #Brain Mass #Headache - Evaluated by neurosurgery team in the ED. Noted his frontal brain mass demonstrated on outside hospital CT of the head with surrounding vasogenic edema. - Neurosurgery recommended MRI of the head with and without contrast, ordered - Neurosurgery recommended CT of the chest, abdomen, and pelvis with contrast for staging - No steroids recommended by neurosurgery. - Hold all anticoagulation. - Will follow up with neurosurgery regarding management plan going forward pending the above imaging study results. - Tylenol and Toradol for headache. If severe, give migraine cockt (more content not included)...[employer] [id number] History and physical note* Linda Valenzuela DO - 09/14/2024 6:58 AM EST Images from the original note were not included. General Internal Medicine History and Physical Note HISTORY OF PRESENT ILLNESS: Anurag Joseph, a 48-year-old male with no significant past medical history and not on any medications, presented to the emergency department from [facility] with a complaint of headache. The history was primarily obtained from the patient's , as Mr. Joseph was passively refusing to participate in most of the interview and exam. He has been experiencing a progressively worsening occipital headache for the past month, which has spread to the bilateral trapezius areas. The headache has gradually worsened over this period to about an 8 out of 10 intensity. He has not experienced any vision blurring, visual artifacts, limb weakness, numbness. However, he has been feeling profoundly fatigued for the past several days, and started having mood swings, which prompted his visit to the ED today. He denies nausea, vomiting, unintended weight loss, and hallucinations. Review of Systems Constitutional: Negative for chills and fever. Eyes: Negative for blurred vision and double vision. Respiratory: Negative for cough and shortness of breath. Cardiovascular: Negative for chest pain and palpitations. Gastrointestinal: Negative for nausea and vomiting. Genitourinary: Negative for dysuria and hematuria. Musculoskeletal: Negative for back pain and myalgias. Neurological: Positive for headaches. Negative for sensory change and focal weakness. Psychiatric/Behavioral: Mood swings Subjective No past medical history on file. There is no previous surgical history on file. Social History Socioeconomic History Marital status: Tobacco Use Smoking status: Never Smokeless tobacco: Never Social Drivers of Health Food Insecurity: Unknown (09/14/2024) Hunger Vital Sign Worried About Running Out of Food in the Last Year: Never true Family history reviewed and non-contributory to the current encounter. Vitals Recorded in This Encounter 09/14/2024 0010 09/14/2024 0400 09/14/2024 0416 09/14/2024 0419 BP: 149/91 139/90 -- 136/92 Pulse: 104 96 -- 89 Resp: 19 16 -- 16 Temp: 98.4 F (36.9 C) -- -- 98.2 F (36.8 C) Temp src: Oral -- -- Oral SpO2: 96 % 97 % -- 96 % Weight: -- -- -- 218 lb 1.6 oz (98.9 kg) Height: -- -- 6' 1 (1.854 m) 6' 1 (1.854 m) Physical exam: - General: Patient resting comfortably, in no acute distress. - Neurological: Alert and oriented x3, strength 5/5 in all four limbs, sensation intact throughout all four limbs and cranial nerve V distribution, no ataxia. - Eyes: EOMI, PERRL, conjunctivae normal. - ENT: Oral mucosa moist, no lesions, exudates, or erythema. - Cardiovascular: Heart regular rate and rhythm, no murmurs, gallops, or rubs. - Respiratory: Lungs clear to auscultation bilaterally, no wheezes, crackles, or ronchi. - Gastrointestinal: Abdomen soft, non-tender, bowel sounds present in all four quadrants. - Extremities: Pulses 2+ in all four limbs, capillary refill < 2 seconds. No intake or output data in the 24 hours ending 09/14/24 0658 Objective LABS: BMP (last 3 years, up to 8 values) 09/14/2024 4:46 AM Na 138 K 4.2 Cl 105 CO2 24 Gap 13 Glu 182 BUN 25 Cr 1.12 Ca 9.7 eGFR 81 CBC (last 3 years, up to 8 values) 09/14/2024 4:46 AM WBC 13.3 RBC 4.74 Hgb 15.8 Hct 46.1 MCV 97 RDW 13.9 Plt 237 WBC/Diff 09/14/2024 4:46 AM Neutro% 92.9 Lymphs% 4.2 Monos% 2.5 Eos% 0.3 Basos% 0.2 LFT's (last 3 years, up to 8 values) No lab values to display. Cardiac None Lipids (last 3 years, up to 8 values) No lab values to display. No results found for: HBA1C Fingerstick Glucose None CULTURES: Urine Culture No lab values to display. Blood Culture No lab values to display. Sputum Culture None Pyogen Culture None CSF Culture No lab values to display. Other studies / imaging reviewed: SR-Brain/Head without Contrast IMPORT Result Date: 09/13/2024 Narrative: Images were obtained outside of [facility] Current Facility-Administered Medications Medication Dose Route Frequency Last Rate Last Admin acetaminophen (TYLENOL) tablet 650 mg Oral Q4H PRN ondansetron (ZOFRAN-ODT) disintegrating tablet 4 mg Oral Q6H PRN melatonin tablet 3 mg Oral At Bedtime PRN ASSESSMENT & PLAN: #Brain Mass #Headache - Evaluated by neurosurgery team in the ED. Noted his frontal brain mass demonstrated on outside hospital CT of the head with surrounding vasogenic edema. - Neurosurgery recommended MRI of the head with and without contrast, ordered - Neurosurgery recommended CT of the chest, abdomen, and pelvis with contrast for staging - No steroids recommended by neurosurgery. - Hold all anticoagulation. - Will follow up with neurosurgery regarding management plan going forward pending the above imaging study results. - Tylenol and Toradol for headache. If severe, give migraine cocktail. Currently, well controlled. - Zofran PRN for nausea. - Get basic labs (especially BMP to assess for any hypothalamic related sodium disturbance). Advanced Care Planning Purpose of Encounter: Advanced care planning in light of frontal brain mass Parties in Attendance: Patient, Dr. Linda Valenzuela, Decisional Capacity: Able to fully participate in medical decision making. Code Status: Full code Disposition: Home pending treatment and clinical recovery / stability. Anticipate <2 hospital days (observation status). Plan of care discussed with: Patient, at bedside, staff VTE Prophylaxis: No AC, bilateral SCDs only Billing level: 2-moderate Criteria: Total time spent on this case including chart review, patient interview and exam, medication reconciliation, review of code status, cost recorder, and documentation: 58 minutes. Linda Valenzuela D.O. 09/14/24 6:58 AM [My coverage for this patient is limited to the hours between 6PM and 7AM the following day. Pleasepage listed 1st call provider outside of those hours. Thank you.] documented in this [id number] Physician Emergency department Note* Abiola De La Cruz MD - 09/14/2024 1:21 AM EST EMERGENCY DEPARTMENT - VISIT NOTE HISTORY OF PRESENT ILLNESS Chief Complaint Patient presents with brain Patient is transfer from [place]. 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 He has been reporting increased fatigue The history is provided by the Patient. Anurag Joseph is a 48 year old male with no known PMH presenting to the ED as a transfer from [place] for NSGY. Patient presented to the ED for one month of occipital headaches and was found to have a frontal mass on CT. Headaches are usually worse in the morning. He denies any frontal headaches. He also endorses fatigue and says his feels he has been having mood swings. He denies vision changes, aphasia, dysarthria, numbness/tingling in the extremities, weakness, or N/V. He has not had any confusion or syncope. 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 PHYSICAL EXAM BP 124/88 (BP Location: right arm) Pulse 100 Temp 97.9 F (36.6 C) (Oral) Resp 16 Ht 6' 1 (1.854 m) Wt 218 lb 1.6 oz (98.9 kg) Comment: standing scale weight SpO2 94% BMI 28.77 kg/m Physical Exam Constitutional: General: He is not in acute distress. Eyes: Conjunctiva/sclera: Conjunctivae normal. Pupils: Pupils are equal, round, and reactive to light. Cardiovascular: Rate and Rhythm: Normal rate and regular rhythm. Heart sounds: Normal heart sounds. Pulmonary: Effort: No respiratory distress. Breath sounds: No wheezing, rhonchi or rales. Abdominal: Palpations: Abdomen is soft. Tenderness: There is no abdominal tenderness. There is no guarding or rebound. Skin: General: Skin is warm and dry. Neurological: Mental Status: He is alert and oriented to person, place, and time. Cranial Nerves: No cranial nerve deficit. Sensory: No sensory deficit. Motor: No weakness. MEDICAL DECISION MAKING and ED COURSE See ED course for any discussion with other health care provider(s) Evaluated by EM attending Nikita Beltran Course: ED Course as of 09/14/24 1048 TueSep 14, 2024 001 BP: 149/91 No hypotension [JT] 0012 Temperature: 98.4 F (36.9 C) Afebrile [JT] 0012 Heart Rate(!): 104 Mild tachycardia [JT] 0012 SpO2: 96 % No hypoxia [JT] 0026 Discussed w/ Lisa from NSGY who is aware of patient [JT] 0153 CT NEURO IMAGE IMPORT Personally reviewed OSH CTH: Large R frontal mass crossing midline [JT] 0308 NSGY recommends medicine admission and MRI brain w/wo and CT CAP for further evaluation [JT] [address] Valenzuela to medicine [JT] ED Course User Index [JT] Abiola De La Cruz MD Assessment & Plan: Patient presented as a transfer from OSH for NSGY consult for a newly diagnosed brain mass. On exam, patient has no focal neurologic deficits, though did occasionally laugh inappropriately and was somewhat flat. NSGY evaluated and does not recommend any acute intervention. They recommend medicine admission for MRI w/wo and CT CAP. Patient was admitted to medicine for additional imaging and workup of brain mass. They were hemodynamically stable and nontoxic appearing while under my care. 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 Report called to Dr. Valenzuela, medicine, 314 (09/14/24 0320) The patient has received a medical screening examination and within reasonable clinical confidence the patient was stabilized within the capabilities of the emergency department and requires admission / observation. Counseling: Spoke with the spouse and patient and discussed today s findings, in addition to providing specific details for the plan of care and expected course. They were given the opportunity to ask questions. Abiola De La Cruz MD Cosigned by Nikita Beltran DO at 09/15/2024 2:35 AM EST Associated attestation - Nikita Beltran DO - 09/15/2024 2:35 AM EST ATTENDING NOTE I saw and evaluated the patient. I personally obtained the priest and critical portions of the historyand physical exam. I reviewed the resident's documentation and discussed the patient with the resident. I agree with the resident's medical decision making as documented in the resident's note. Nikita Beltran DO [id number] Emergency department Note* Abiola De La Cruz MD - 09/14/2024 1:21 AM EST EMERGENCY DEPARTMENT - VISIT NOTE HISTORY OF PRESENT ILLNESS Chief Complaint Patient presents with brain Patient is transfer from [place]. 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 He has been reporting increased fatigue The history is provided by the Patient. Anurag Joseph is a 48 year old male with no known PMH presenting to the ED as a transfer from [place] for NSGY. Patient presented to the ED for one month of occipital headaches and was found to have a frontal mass on CT. Headaches are usually worse in the morning. He denies any frontal headaches. He also endorses fatigue and says his feels he has been having mood swings. He denies vision changes, aphasia, dysarthria, numbness/tingling in the extremities, weakness, or N/V. He has not had any confusion or syncope. 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 PHYSICAL EXAM BP 124/88 (BP Location: right arm) Pulse 100 Temp 97.9 F (36.6 C) (Oral) Resp 16 Ht 6' 1 (1.854 m) Wt 218 lb 1.6 oz (98.9 kg) Comment: standing scale weight SpO2 94% BMI 28.77 kg/m Physical Exam Constitutional: General: He is not in acute distress. Eyes: Conjunctiva/sclera: Conjunctivae normal. Pupils: Pupils are equal, round, and reactive to light. Cardiovascular: Rate and Rhythm: Normal rate and regular rhythm. Heart sounds: Normal heart sounds. Pulmonary: Effort: No respiratory distress. Breath sounds: No wheezing, rhonchi or rales. Abdominal: Palpations: Abdomen is soft. Tenderness: There is no abdominal tenderness. There is no guarding or rebound. Skin: General: Skin is warm and dry. Neurological: Mental Status: He is alert and oriented to person, place, and time. Cranial Nerves: No cranial nerve deficit. Sensory: No sensory deficit. Motor: No weakness. MEDICAL DECISION MAKING and ED COURSE See ED course for any discussion with other health care provider(s) Evaluated by EM attending Nikita Beltran Course: ED Course as of 09/14/24 1048 TueSep 14, 2024 001 BP: 149/91 No hypotension [JT] 0012 Temperature: 98.4 F (36.9 C) Afebrile [JT] 0012 Heart Rate(!): 104 Mild tachycardia [JT] 0012 SpO2: 96 % No hypoxia [JT] 0026 Discussed w/ Lisa from NS who is aware of patient [JT] 0153 CT NEURO IMAGE IMPORT Personally reviewed OSH CTH: Large R frontal mass crossing midline [JT] 0308 NS recommends medicine admission and MRI brain w/wo and CT CAP for further evaluation [JT] [address] Valenzuela to medicine [JT] ED Course User Index [JT] Abiola De La Cruz MD Assessment & Plan: Patient presented as a transfer from OSH for NSGY consult for a newly diagnosed brain mass. On exam, patient has no focal neurologic deficits, though did occasionally laugh inappropriately and was somewhat flat. NSGY evaluated and does not recommend any acute intervention. They recommend medicine admission for MRI w/wo and CT CAP. Patient was admitted to medicine for additional imaging and workup of brain mass. They were hemodynamically stable and nontoxic appearing while under my care. 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 Report called to Dr. Valenzuela, [facility], 0315 (09/14/24 0320) The patient has received a medical screening examination and within reasonable clinical confidence the patient was stabilized within the capabilities of the emergency department and requires admission / observation. Counseling: Spoke with the spouse and patient and discussed today s findings, in addition to providing specific details for the plan of care and expected course. They were given the opportunity to ask questions. Abiola De La Cruz MD Cosigned by Nikita Beltran DO at 09/15/2024 2:35 AM EST Associated attestation - Nikita Beltran DO - 09/15/2024 2:35 AM EST ATTENDING NOTE I saw and evaluated the patient. I personally obtained the priest and critical portions of the historyand physical exam. I reviewed the resident's documentation and discussed the patient with the resident. I agree with the resident's medical decision making as documented in the resident's note. Nikita Beltran DO documented in this encounterMetroHealthConsult note Author Giovani Shirley [facility] Note Date/Time May 07, 2025 11:0 6am [facility] Medical Records Department [address] [place] [address] Anesthesia Postop Eval I 05/07/25 1106 MR#: [id number] Acct: [id number] Name: LAMINE JOSEPH Rep #:[id number] : 1975 49 From: Giovani VALADEZ PCP: Care Physician,No Primary Status :REG SDC Y Race: C Location: [place] [address] Anesthesia: Postop Eval I Current Vital Signs Temperature: 97.8 F Pulse Rate: 71 Blood Pressure: 145/90 Respiratory Rate: 16 Pulse Ox: 95 Oxygen Delivery Method: Nasal Cannula Oxygen Flow Rate (L/min): 3 Assessment Airway patent: Yes Spontaneous unlabored respirations: No Mental status: Awake nausea: No Vomiting: No Anesthesia Complication: No Fluid Hydration Crystalloid volume administer (ml): 200 Total IV fluid infused: 200 Progress Note Anesthesia document: Postop Eval 1 completed: Yes 05/07/251105 <Electronically signed by Giovani Shirley CRNA> Date _ Giovani Shirley CRNA Cosigner Signature: Date CC: ~ Signed [facility] Work Phone: Discharge summary Author Chavez Mcfadden [facility] Note Date/Time May 07, 2025 11:0 4am [facility] Medical Records Department [address] [place] [address] Instructions for Home/Discharge Instructions 05/07/25 1104 MR#: [id number] Acct: [id number] Name: LAMINE JOSEPH Rep #:[id number] : 1975 49 From: Chavez rodriguez MD PCP: Care Physician,No Primary Status :REG SDC Discharge Instructions Procedure Port-A-Cath Diet Discharge Diet: Light diet - advance as tolerated (Pain medication may cause nausea. You should typically eat light foods as you take your pain medication.) Activity Discharge Activity: Return to Normal Activity and May Shower (with your bandage in place in 1-2 days after surgery. DO NOT SHOWER WHEN YOUR PORT IS ACCESSED.) Additional Activity Instructions:: Resume Eliquis tonight Dressing / Incision Call your doctor if your incision/area has: Continuous Slow Oozing, Sudden Increased Bleeding, Increased Pain/ Swelling, Increased Redness and Foul Smelling Discharge Call your doctor if you observe: Fever of 101 or Higher Remove Dressing in: 2 days Cleanse incision/area with: Soap & Water Follow Up Care Please Follow Up With: Chavez Mcfadden MD When: as needed [phone] Test Results: Test results from this visit will be discussed in further detail at your follow- up appointment, if applicable. Discharge Plan Admission Attending Provider: Chavez Mcfadden Primary Care Provider: Care Physician,No Primary Instructions Print Language: Russian Discharge Orders/Prescriptions Prescriptions: No Action acetaminophen [Tylenol] 325 mg tablet 325 mg PO ONCE PRN (Reason: pain) docusate sodium 100 mg capsule 100 mg PO QDAY PRN (Reason: constipation) ondansetron 4 mg tablet,disintegrating 4 mg PO Q8H PRN (Reason: nausea and vomiting) Qty: 30 1RF lidocaine-prilocaine 2.5-2.5 % cream 1 applic topical ONCE PRN (Reason: port access) 30 Days Qty: 30 2RF Senna Plus 8.6-50 mg capsule 2 tab-cap PO QHS 30 Days Qty: 60 3RF Eliquis 5 mg tablet 5 mg PO BID Qty: 60 5RF Patient Comments: WILL STOP 3 DAYS BEFORE PROCEDURE dexamethasone 2 mg tablet 2 mg PO QDAY Qty: 30 3RF Referrals / Follow Up: Care Physician,No Primary [Primary Care Provider] - Disposition Disposition (needs filled in before D/C Order can be placed): Home, Self Care 05/07/25 1104<Electronically signed by Chavez Mcfadden MD>Chavez Mcfadden MD CC: No Primary Care Physician ~ Signed [facility] Work Phone: Evaluation note* Diagnosis Frontal mass of brain- Primary Unspecified condition of brain Frontal mass of brain Unspecified condition of brain Other headache syndrome Other headache syndrome Frontal mass of brain Unspecified condition of brain documented in this encounter [facility]* Diagnosis Glioma (HCC)- Primary Frontal mass of brain Unspecified condition of brain Frontal mass of brain Unspecified condition of brain documented in this encounter [facility]* Diagnosis Frontal mass of brain- Primary Unspecified condition of brain Frontal mass of brain Unspecified condition of brain documented in this encounter [facility]* Diagnosis GBM (glioblastoma multiforme) (HCC)- Primary Malignant neoplasm of brain, unspecified site documented in this encounter [facility] instructions Additional Instructions Follow-up with primary care physician. Return back to ED if symptoms change or worsen. If you do not have a primary care physician follow-up with the 1 provided above. Follow-up with oncology.[facility] Work Phone: Reason for visit Narrative* Auth/Cert (Routine) Specialty Diagnoses / Procedures Referred By Gino oseguera Referred To Contact General Surgery Diagnoses Frontal mass of brain Frontal mass of brain [G93.89] Procedures CLAUDINE HOLE(S)/TREPHINE; W/BIOPSY, BRAIN/INTRACRANIAL LESION SCAN PROC CRANIAL INTRA BIOPSY, BRAIN WITH BRAIN LAB Kostas Dupree MD [address] [place] [address] [place] [address] Phone: tel: fax: THE [employer] [facility] [address] Phone: tel: Referral ID Status Reason Start Date Expiration Date Visits Re quested Visits Authorized [id number] 3 3 MetroHealthReason for visit Narrative* Auth/Cert (Routine) Specialty Diagnoses / Procedures Referred By Gino oseguera Referred To Contact General Surgery Diagnoses Frontal mass of brain Frontal mass of brain [G93.89] Procedures CLAUDINE HOLE(S)/TREPHINE; W/BIOPSY, BRAIN/INTRACRANIAL LESION SCAN PROC CRANIAL INTRA BIOPSY, BRAIN WITH BRAIN LAB Kostas Dupree MD [address] [place] [address] [place] [address] Phone: tel: fax: THE [email or web address] [facility] [address] Phone: tel: Referral ID Status Reason Start Date Expiration Date Visits Re quested Visits Authorized [id number] [address] [facility] Advance Directives No Advanced Directives Records Found Date Activated Date Inactivated Comments 09/14/2024 4:15 AM 09/15/2024 2:11 PM Question Answer Comments Documentation of decision pr ocess for this code status: Discussed with patient or surrogate. This is the code status chosen by the patient/surrogate. Date Activated Date Inactivated Comments 09/14/2024 4:15 AM Date Activated Date Inactivated Comments 09/14/2024 4:15 AM 09/15/2024 2:11 PM Question Answer Comments Documentation of decision pr ocess for this code status: Discussed with patient or surrogate. This is the code status chosen by the patient/surrogate. Advance Directive Response Recorded Date/ Time Living Will No September 13 5:39pm Do you have a Healthcare Power of Monitor Car Operator? No September 13, 2024 5:39pm Advance Directive Response Recorded Date/ Time Living Will Yes January 17, 2025 10:52am Do you have a Healthcare Power of Monitor Car Operator? Yes January 17, 2025 10:52am Name of Medical Power of Monitor Car Operator January 17, 2025 10:52am Advance Directive Response Recorded Date/ Time Living Will Yes January 17, 2025 10:52am Do you have a Healthcare Power of Monitor Car Operator? Yes January 17, 2025 10:52am Name of Medical Power of Monitor Car Operator January 17, 2025 10:52am Do you have a Healthcare Power of Monitor Car Operator? Yes April 18, 2025 1:09pm Advance Directive Response Recorded Date/ Time Living Will Yes January 17, 2025 10:52am Do you have a Healthcare Power of Monitor Car Operator? Yes January 17, 2025 10:52am Name of Medical Power of Monitor Car Operator January 17, 2025 10:52am Do you have a Healthcare Power of Monitor Car Operator? Yes April 18, 2025 1:09pm Advance Directives on File No May 08, 2025 11:39am Living Will Yes May 08, 2025 11:39am Do you have a Healthcare Power of Monitor Car Operator? Yes May 08, 2025 11:39am Name of Medical Power of Monitor Car Operator Hugo Joseph May 08, 2025 11:39am Advance Directives Yes May 08 11:39am Advance Directive Response Recorded Date/ Time Do you have a Healthcare Power of Monitor Car Operator? Yes April 18, 2025 1:09pm Advance Directives on File No May 08, 2025 11:39am Living Will Yes May 08, 2025 11:39am Do you have a Healthcare Power of Monitor Car Operator? Yes May 08, 2025 11:39am Name of Medical Power of Monitor Car Operator Hugo Joseph May 08, 2025 11:39am Advance Directives Yes May 08 11:39am Advance Directive Response Recorded Date/ Time Do you have a Healthcare Power of Monitor Car Operator? Yes April 18, 2025 1:09pm Advance Directives on File No Augus t 2024 10:23am Living Will Yes May 22, 2025 10:23am Do you have a Healthcare Power of Monitor Car Operator? Yes May 22, 2025 10:23am Name of Medical Power of Monitor Car Operator Hugo Joseph May 22, 2025 10:23am Advance Directives Yes May 22, 2 025 10:23am Advance Directive Response Recorded Date/ Time Do you have a Healthcare Power of Monitor Car Operator? Yes April 18, 2025 1:09pm Advance Directives on File No Augus t 2024 11:00am Living Will Yes June 05 11:00am Do you have a Healthcare Power of Monitor Car Operator? Yes June 05, 2025 11:00am Name of Medical Power of Monitor Car Operator Hugo Joseph June 05, 2025 11:00am Advance Directives Yes June 05, 2025 11:00am Summary Purpose Family History No Family History Records Found Relationship Condition Age at Onset Recorded Date/T braden father Parkinson's disease Unknown Chief Complaint and Reason for Visit Chief Complaint Admit Date FATIGUE September 13, 2024 3:39pm Amb Documentation October 05, 2024 11:21am GLIOBLASTOMA MULTIFORME October 11, 2 024 3:26pm CONSULT - BRAIN October 16, 2024 1:21pm GLIOBLASTOMA October 18, 2024 2: 57pm CHEMO ED October 23, 2024 2: 13pm [facility] October 29, 2024 3 :25pm C71.9 - Malignant neoplasm of brain, uns pecified October 31, 2024 1:37pm OTV November 01, 2024 2 :54pm [facility] November 05, 2024 3 :10pm OTV November 08, 2024 2 :44pm [facility] November 12, 2024 2 :08pm OTV November 15, 2024 2 :38pm [facility] November 19, 2024 2 :40pm OTV November 22, 2024 2 :36pm [facility] November 26, 2024 2:43pm C71.9 - Malignant neoplasm of brain, uns pecified November 28, 2024 1:48pm OTV November 29, 2024 2:32pm [facility] December 03, 2024 2:41pm OTV December 06, 2024 2:46pm RAD TX December 10, 2024 1:45pm [facility] December 10, 2024 1:51pm C71.9 - Malignant neoplasm of brain, uns pecified December 26, 2024 12:54pm Reason for Visit Admit Date Glioblastoma multiforme October 11, 2 024 3:26pm Glioblastoma multiforme October 16, 2 024 1:21pm Encounter for education October 23 2:13pm Glioblastoma multiforme October 23 2:13pm Glioblastoma multiforme October 29 3:25pm Headache October 29, 2024 3 :25pm Glioblastoma multiforme November 01 2:54pm Glioblastoma multiforme November 05 3:10pm Glioblastoma multiforme November 08 2:44pm Glioblastoma multiforme November 12 2:08pm Glioblastoma multiforme November 15 2:38pm Glioblastoma multiforme November 19 2:40pm Glioblastoma multiforme November 22 2:36pm Glioblastoma multiforme November 26, 2 025 2:43pm Glioblastoma multiforme November 29, 2 025 2:32pm Glioblastoma multiforme December 03, 2 025 2:41pm Glioblastoma multiforme December 06, 2 025 2:46pm Glioblastoma multiforme December 10, 2 025 1:51pm Chief Complaint Admit Date Amb Documentation October 05, 2024 11:21am GLIOBLASTOMA MULTIFORME October 11, 2 024 3:26pm CONSULT - BRAIN October 16, 2024 1:21pm GLIOBLASTOMA October 18, 2024 2: 57pm CHEMO ED October 23, 2024 2: 13pm [facility] October 29, 2024 3 :25pm C71.9 - Malignant neoplasm of brain, uns pecified October 31, 2024 1:37pm OTV November 01, 2024 2 :54pm [facility] November 05, 2024 3 :10pm OTV November 08, 2024 2 :44pm [facility] November 12, 2024 2 :08pm OTV November 15, 2024 2 :38pm [facility] November 19, 2024 2 :40pm OTV November 22, 2024 2 :36pm [facility] November 26, 2024 2:43pm C71.9 - Malignant neoplasm of brain, uns pecified November 28, 2024 1:48pm OTV November 29, 2024 2:32pm [facility] December 03, 2024 2:41pm OTV December 06, 2024 2:46pm [facility] December 10, 2024 1:51pm C71.9 - Malignant neoplasm of brain, uns pecified December 26, 2024 12:54pm GLIOBLASTOMA January 07, 2025 1:2 2pm RAD TX January 10, 2025 1:4 5pm 4[facility] January 10, 2025 2:1 5pm 1 MONTH F/U POST RT January 10, 2025 2:1 6pm BILATERAL LG SWELLING January 10, 2025 3 :46pm Reason for Visit Admit Date Glioblastoma multiforme October 11, 2 024 3:26pm Glioblastoma multiforme October 16, 2 024 1:21pm Encounter for education October 23 2:13pm Glioblastoma multiforme October 23 2:13pm Headache October 29, 2024 3 :25pm Glioblastoma multiforme October 29 3:25pm Glioblastoma multiforme November 01 2:54pm Glioblastoma multiforme November 05 3:10pm Glioblastoma multiforme November 08 2:44pm Glioblastoma multiforme November 12 2:08pm Glioblastoma multiforme November 15 2:38pm Glioblastoma multiforme November 19 2:40pm Glioblastoma multiforme November 22 2:36pm Glioblastoma multiforme November 26, 2 025 2:43pm Glioblastoma multiforme November 29, 2 025 2:32pm Glioblastoma multiforme December 03, 2 025 2:41pm Glioblastoma multiforme December 06, 2 025 2:46pm Glioblastoma multiforme December 10, 2 025 1:51pm Edema leg January 10, 2025 2:1 5pm Glioblastoma multiforme January 10, 2025 2:15pm Hemiparesis January 10, 2025 2:1 5pm Glioblastoma multiforme January 10, 2025 2:16pm Chief Complaint Admit Date Amb Documentation October 05, 2024 11:21am GLIOBLASTOMA MULTIFORME October 11, 2 024 3:26pm CONSULT - BRAIN October 16, 2024 1:21pm GLIOBLASTOMA October 18, 2024 2: 57pm CHEMO ED October 23, 2024 2: 13pm [facility] October 29, 2024 3 :25pm C71.9 - Malignant neoplasm of brain, uns pecified October 31, 2024 1:37pm OTV November 01, 2024 2 :54pm [facility] November 05, 2024 3 :10pm OTV November 08, 2024 2 :44pm [facility] November 12, 2024 2 :08pm OTV November 15, 2024 2 :38pm [facility] November 19, 2024 2 :40pm OTV November 22, 2024 2 :36pm [facility] November 26, 2024 2:43pm C71.9 - Malignant neoplasm of brain, uns pecified November 28, 2024 1:48pm OTV November 29, 2024 2:32pm [facility] December 03, 2024 2:41pm OTV December 06, 2024 2:46pm [facility] December 10, 2024 1:51pm C71.9 - Malignant neoplasm of brain, uns pecified December 26, 2024 12:54pm GLIOBLASTOMA January 07, 2025 1:2 2pm RAD TX January 10, 2025 1:4 5pm [facility] January 10, 2025 2:1 5pm 1 MONTH F/U POST RT January 10, 2025 2:1 6pm BILATERAL LG SWELLING January 10, 2025 3 :46pm abd pain January 17, 2025 10:3 7am Chief Complaint Admit Date Amb Documentation October 05, 2024 11:21am GLIOBLASTOMA MULTIFORME October 11, 2 024 3:26pm CONSULT - BRAIN October 16, 2024 1:21pm GLIOBLASTOMA October 18, 2024 2: 57pm CHEMO ED October 23, 2024 2: 13pm [facility] October 29, 2024 3 :25pm C71.9 - Malignant neoplasm of brain, uns pecified October 31, 2024 1:37pm OTV November 01, 2024 2 :54pm [facility] November 05, 2024 3 :10pm OTV November 08, 2024 2 :44pm [facility] November 12, 2024 2 :08pm OTV November 15, 2024 2 :38pm [facility] November 19, 2024 2 :40pm OTV November 22, 2024 2 :36pm [facility] November 26, 2024 2:43pm C71.9 - Malignant neoplasm of brain, uns pecified November 28, 2024 1:48pm OTV November 29, 2024 2:32pm [facility] December 03, 2024 2:41pm OTV December 06, 2024 2:46pm [facility] December 10, 2024 1:51pm C71.9 - Malignant neoplasm of brain, uns pecified December 26, 2024 12:54pm GLIOBLASTOMA January 07, 2025 1:2 2pm [facility] January 10, 2025 2:1 5pm 1 MONTH F/U POST RT January 10, 2025 2:1 6pm BILATERAL LG SWELLING January 10, 2025 3 :46pm abd pain January 17, 2025 10:3 7am Encounter for other specified prophylact ic measure January 23, 2025 12:56pm RAD TX January 24, 2025 3:3 0pm [facility] January 24, 2025 3:4 9pm Reason for Visit Admit Date Glioblastoma multiforme October 11, 2 024 3:26pm Glioblastoma multiforme October 16, 2 024 1:21pm Encounter for education October 23 2:13pm Glioblastoma multiforme October 23 2:13pm Headache October 29, 2024 3 :25pm Glioblastoma multiforme October 29 3:25pm Glioblastoma multiforme November 01 2:54pm Glioblastoma multiforme November 05 3:10pm Glioblastoma multiforme November 08 2:44pm Glioblastoma multiforme November 12 2:08pm Glioblastoma multiforme November 15 2:38pm Glioblastoma multiforme November 19 2:40pm Glioblastoma multiforme November 22 2:36pm Glioblastoma multiforme November 26, 2 025 2:43pm Glioblastoma multiforme November 29, 2 025 2:32pm Glioblastoma multiforme December 03, 2 025 2:41pm Glioblastoma multiforme December 06, 2 025 2:46pm Glioblastoma multiforme December 10, 2 025 1:51pm Edema leg January 10, 2025 2:1 5pm Glioblastoma multiforme January 10, 2025 2:15pm Hemiparesis January 10, 2025 2:1 5pm Glioblastoma multiforme January 10, 2025 2:16pm Abdominal pain January 24, 2025 3:4 9pm DVT (deep venous thrombosis) January 24, 2025 3:49pm Glioblastoma multiforme January 24, 2025 3:49pm Hemiparesis January 24, 2025 3:4 9pm Chief Complaint Admit Date [facility] October 29, 2024 3 :25pm C71.9 - Malignant neoplasm of brain, uns pecified October 31, 2024 1:37pm OTV November 01, 2024 2 :54pm [facility] November 05, 2024 3 :10pm OTV November 08, 2024 2 :44pm [facility] November 12, 2024 2 :08pm OTV November 15, 2024 2 :38pm [facility] November 19, 2024 2 :40pm OTV November 22, 2024 2 :36pm [facility] November 26, 2024 2:43pm C71.9 - Malignant neoplasm of brain, uns pecified November 28, 2024 1:48pm OTV November 29, 2024 2:32pm [facility] December 03, 2024 2:41pm OTV December 06, 2024 2:46pm [facility] December 10, 2024 1:51pm C71.9 - Malignant neoplasm of brain, uns pecified December 26, 2024 12:54pm GLIOBLASTOMA January 07, 2025 1:2 2pm [facility] January 10, 2025 2:1 5pm 1 MONTH F/U POST RT January 10, 2025 2:1 6pm BILATERAL LG SWELLING January 10, 2025 3 :46pm abd pain January 17, 2025 10:3 7am Encounter for other specified prophylact ic measure January 23, 2025 12:56pm [facility] January 24, 2025 3:4 9pm 1.5 [facility] February 04, 2025 3:2 4pm CHEST CONGESTION February 12, 2025 2:0 9pm cough February 12, 2025 2:4 4pm COMPARE TO PRIOR February 13, 2025 8:0 6am RAD TX February 18, 2025 2:30pm 2[facility]-LABS@3:30 February 18, 2025 3:27pm Encounter for other specified prophylact ic measure February 20, 2025 1:01pm Reason for Visit Admit Date Headache October 29, 2024 3 :25pm Glioblastoma multiforme October 29 3:25pm Glioblastoma multiforme November 01 2:54pm Glioblastoma multiforme November 05 3:10pm Glioblastoma multiforme November 08 2:44pm Glioblastoma multiforme November 12 2:08pm Glioblastoma multiforme November 15 2:38pm Glioblastoma multiforme November 19 2:40pm Glioblastoma multiforme November 22 2:36pm Glioblastoma multiforme November 26, 2 025 2:43pm Glioblastoma multiforme November 29, 2 025 2:32pm Glioblastoma multiforme December 03, 2 025 2:41pm Glioblastoma multiforme December 06, 2 025 2:46pm Glioblastoma multiforme December 10, 2 025 1:51pm Edema leg January 10, 2025 2:1 5pm Glioblastoma multiforme January 10, 2025 2:15pm Hemiparesis January 10, 2025 2:1 5pm Glioblastoma multiforme January 10, 2025 2:16pm Abdominal pain January 24, 2025 3:4 9pm DVT (deep venous thrombosis) January 24, 2025 3:49pm Glioblastoma multiforme January 24, 2025 3:49pm Hemiparesis January 24, 2025 3:4 9pm DVT (deep venous thrombosis) February 04, 2025 3:24pm Glioblastoma multiforme February 04, 2025 3:24pm Hemiparesis February 04, 2025 3:2 4pm Pneumonia February 12, 2025 2:0 9pm DVT (deep venous thrombosis) February 18 3:27pm Glioblastoma multiforme February 18, 2025 3: 27pm Hemiparesis February 18, 2025 3:27pm Chief Complaint Admit Date OTV November 01, 2024 2 :54pm [facility] November 05, 2024 3 :10pm OTV November 08, 2024 2 :44pm [facility] November 12, 2024 2 :08pm OTV November 15, 2024 2 :38pm [facility] November 19, 2024 2 :40pm OTV November 22, 2024 2 :36pm [facility] November 26, 2024 2:43pm C71.9 - Malignant neoplasm of brain, uns pecified November 28, 2024 1:48pm OTV November 29, 2024 2:32pm [facility] December 03, 2024 2:41pm OTV December 06, 2024 2:46pm [facility] December 10, 2024 1:51pm C71.9 - Malignant neoplasm of brain, uns pecified December 26, 2024 12:54pm GLIOBLASTOMA January 07, 2025 1:2 2pm [facility] January 10, 2025 2:1 5pm 1 MONTH F/U POST RT January 10, 2025 2:1 6pm BILATERAL LG SWELLING January 10, 2025 3 :46pm abd pain January 17, 2025 10:3 7am Encounter for other specified prophylact ic measure January 23, 2025 12:56pm [facility] January 24, 2025 3:4 9pm 1.5 [facility] February 04, 2025 3:2 4pm CHEST CONGESTION February 12, 2025 2:0 9pm cough February 12, 2025 2:4 4pm COMPARE TO PRIOR February 13, 2025 8:0 6am RAD TX February 18, 2025 2:30pm [facility]-LABS@3:30 February 18, 2025 3:27pm Encounter for other specified prophylact ic measure February 20, 2025 1:01pm 1 WEEK, NO LABS, REVIEW MRI February 25 2:01pm DVT February 25, 2025 3:29p m Reason for Visit Admit Date Glioblastoma multiforme November 01 2:54pm Glioblastoma multiforme November 05 3:10pm Glioblastoma multiforme November 08 2:44pm Glioblastoma multiforme November 12 2:08pm Glioblastoma multiforme November 15 2:38pm Glioblastoma multiforme November 19 2:40pm Glioblastoma multiforme November 22 2:36pm Glioblastoma multiforme November 26, 2 025 2:43pm Glioblastoma multiforme November 29, 2 025 2:32pm Glioblastoma multiforme December 03, 2 025 2:41pm Glioblastoma multiforme December 06, 2 025 2:46pm Glioblastoma multiforme December 10, 2 025 1:51pm Edema leg January 10, 2025 2:1 5pm Glioblastoma multiforme January 10, 2025 2:15pm Hemiparesis January 10, 2025 2:1 5pm Glioblastoma multiforme January 10, 2025 2:16pm Abdominal pain January 24, 2025 3:4 9pm DVT (deep venous thrombosis) January 24, 2025 3:49pm Glioblastoma multiforme January 24, 2025 3:49pm Hemiparesis January 24, 2025 3:4 9pm DVT (deep venous thrombosis) February 04, 2025 3:24pm Glioblastoma multiforme February 04, 2025 3:24pm Hemiparesis February 04, 2025 3:2 4pm Pneumonia February 12, 2025 2:0 9pm DVT (deep venous thrombosis) February 18 3:27pm Glioblastoma multiforme February 18, 2025 3: 27pm Hemiparesis February 18, 2025 3:27pm DVT (deep venous thrombosis) February 25, 2 025 2:01pm Glioblastoma multiforme February 25, 2025 2 :01pm Hemiparesis February 25, 2025 2:01p m Chief Complaint Admit Date [facility] November 05, 2024 3 :10pm OTV November 08, 2024 2 :44pm [facility] November 12, 2024 2 :08pm OTV November 15, 2024 2 :38pm [facility] November 19, 2024 2 :40pm OTV November 22, 2024 2 :36pm [facility] November 26, 2024 2:43pm C71.9 - Malignant neoplasm of brain, uns pecified November 28, 2024 1:48pm OTV November 29, 2024 2:32pm [facility] December 03, 2024 2:41pm OTV December 06, 2024 2:46pm [facility] December 10, 2024 1:51pm C71.9 - Malignant neoplasm of brain, uns pecified December 26, 2024 12:54pm GLIOBLASTOMA January 07, 2025 1:2 2pm 4[facility] January 10, 2025 2:1 5pm 1 MONTH F/U POST RT January 10, 2025 2:1 6pm BILATERAL LG SWELLING January 10, 2025 3 :46pm abd pain January 17, 2025 10:3 7am Encounter for other specified prophylact ic measure January 23, 2025 12:56pm [facility] January 24, 2025 3:4 9pm 1.5 [facility] February 04, 2025 3:2 4pm CHEST CONGESTION February 12, 2025 2:0 9pm cough February 12, 2025 2:4 4pm COMPARE TO PRIOR February 13, 2025 8:0 6am [facility]-LABS@3:30 February 18, 2025 3:27pm Encounter for other specified prophylact ic measure February 20, 2025 1:01pm 1 WEEK, NO LABS, REVIEW MRI February 25 2:01pm DVT February 25, 2025 3:29p m RAD TX March 04, 2025 8:15a m 1 WK, LABS, REVIEW DOPPLER March 04 8:21am Reason for Visit Admit Date Glioblastoma multiforme November 05 3:10pm Glioblastoma multiforme November 08 2:44pm Glioblastoma multiforme November 12 2:08pm Glioblastoma multiforme November 15 2:38pm Glioblastoma multiforme November 19 2:40pm Glioblastoma multiforme November 22 2:36pm Glioblastoma multiforme November 26, 2 025 2:43pm Glioblastoma multiforme November 29, 2 025 2:32pm Glioblastoma multiforme December 03, 2 025 2:41pm Glioblastoma multiforme December 06, 2 025 2:46pm Glioblastoma multiforme December 10, 2 025 1:51pm Edema leg January 10, 2025 2:1 5pm Glioblastoma multiforme January 10, 2025 2:15pm Hemiparesis January 10, 2025 2:1 5pm Glioblastoma multiforme January 10, 2025 2:16pm Abdominal pain January 24, 2025 3:4 9pm DVT (deep venous thrombosis) January 24, 2025 3:49pm Glioblastoma multiforme January 24, 2025 3:49pm Hemiparesis January 24, 2025 3:4 9pm DVT (deep venous thrombosis) February 04, 2025 3:24pm Glioblastoma multiforme February 04, 2025 3:24pm Hemiparesis February 04, 2025 3:2 4pm Pneumonia February 12, 2025 2:0 9pm DVT (deep venous thrombosis) February 18 3:27pm Glioblastoma multiforme February 18, 2025 3: 27pm Hemiparesis February 18, 2025 3:27pm DVT (deep venous thrombosis) February 25, 2 025 2:01pm Glioblastoma multiforme February 25, 2025 2 :01pm Hemiparesis February 25, 2025 2:01p m DVT (deep venous thrombosis) March 04, 2 025 8:21am Glioblastoma multiforme March 04, 2025 8 :21am Hemiparesis March 04, 2025 8:21a m Chief Complaint Admit Date [facility] November 19, 2024 2 :40pm OTV November 22, 2024 2 :36pm [facility] November 26, 2024 2:43pm C71.9 - Malignant neoplasm of brain, uns pecified November 28, 2024 1:48pm OTV November 29, 2024 2:32pm [facility] December 03, 2024 2:41pm OTV December 06, 2024 2:46pm [facility] December 10, 2024 1:51pm C71.9 - Malignant neoplasm of brain, uns pecified December 26, 2024 12:54pm GLIOBLASTOMA January 07, 2025 1:2 2pm [facility] January 10, 2025 2:1 5pm 1 MONTH F/U POST RT January 10, 2025 2:1 6pm BILATERAL LG SWELLING January 10, 2025 3 :46pm abd pain January 17, 2025 10:3 7am Encounter for other specified prophylact ic measure January 23, 2025 12:56pm [facility] January 24, 2025 3:4 9pm 1.5 [facility] February 04, 2025 3:2 4pm CHEST CONGESTION February 12, 2025 2:0 9pm cough February 12, 2025 2:4 4pm COMPARE TO PRIOR February 13, 2025 8:0 6am [facility]-LABS@3:30 February 18, 2025 3:27pm Encounter for other specified prophylact ic measure February 20, 2025 1:01pm 1 WEEK, NO LABS, REVIEW MRI February 25 2:01pm DVT February 25, 2025 3:29p m 1 WK, LABS, REVIEW DOPPLER March 04 8:21am WEAKNESS/R ARM HEMIPAPRASIS. RX HERE March 14, 2025 2:00pm RAD TX March 18, 2025 2:15p m Reason for Visit Admit Date Glioblastoma multiforme November 19 2:40pm Glioblastoma multiforme November 22 2:36pm Glioblastoma multiforme November 26, 2 025 2:43pm Glioblastoma multiforme November 29, 2 025 2:32pm Glioblastoma multiforme December 03, 2 025 2:41pm Glioblastoma multiforme December 06, 2 025 2:46pm Glioblastoma multiforme December 10, 2 025 1:51pm Edema leg January 10, 2025 2:1 5pm Glioblastoma multiforme January 10, 2025 2:15pm Hemiparesis January 10, 2025 2:1 5pm Glioblastoma multiforme January 10, 2025 2:16pm Abdominal pain January 24, 2025 3:4 9pm DVT (deep venous thrombosis) January 24, 2025 3:49pm Glioblastoma multiforme January 24, 2025 3:49pm Hemiparesis January 24, 2025 3:4 9pm DVT (deep venous thrombosis) February 04, 2025 3:24pm Glioblastoma multiforme February 04, 2025 3:24pm Hemiparesis February 04, 2025 3:2 4pm Pneumonia February 12, 2025 2:0 9pm DVT (deep venous thrombosis) February 18 3:27pm Glioblastoma multiforme February 18, 2025 3: 27pm Hemiparesis February 18, 2025 3:27pm DVT (deep venous thrombosis) February 25, 2 025 2:01pm Glioblastoma multiforme February 25, 2025 2 :01pm Hemiparesis February 25, 2025 2:01p m DVT (deep venous thrombosis) March 04, 2 025 8:21am Glioblastoma multiforme March 04, 2025 8 :21am Hemiparesis March 04, 2025 8:21a m DVT (deep venous thrombosis) March 18, 2 025 2:15pm Glioblastoma multiforme March 18, 2025 2 :15pm Hemiparesis March 18, 2025 2:15p m Chief Complaint Admit Date [facility] November 26, 2024 2:43pm C71.9 - Malignant neoplasm of brain, uns pecified November 28, 2024 1:48pm OTV November 29, 2024 2:32pm [facility] December 03, 2024 2:41pm OTV December 06, 2024 2:46pm [facility] December 10, 2024 1:51pm C71.9 - Malignant neoplasm of brain, uns pecified December 26, 2024 12:54pm GLIOBLASTOMA January 07, 2025 1:2 2pm 4[facility] January 10, 2025 2:1 5pm 1 MONTH F/U POST RT January 10, 2025 2:1 6pm BILATERAL LG SWELLING January 10, 2025 3 :46pm abd pain January 17, 2025 10:3 7am Encounter for other specified prophylact ic measure January 23, 2025 12:56pm [facility] January 24, 2025 3:4 9pm 1.5 [facility] February 04, 2025 3:2 4pm CHEST CONGESTION February 12, 2025 2:0 9pm cough February 12, 2025 2:4 4pm COMPARE TO PRIOR February 13, 2025 8:0 6am [facility]-LABS@3:30 February 18, 2025 3:27pm Encounter for other specified prophylact ic measure February 20, 2025 1:01pm 1 WEEK, NO LABS, REVIEW MRI February 25 2:01pm DVT February 25, 2025 3:29p m 1 WK, LABS, REVIEW DOPPLER March 04 8:21am RAD TX March 18, 2025 2:15p m Encounter for other specified prophylact ic measure March 20, 2025 12:54pm WEAKNESS/R ARM HEMIPAPRASIS. RX HERE Mar 2:30pm Reason for Visit Admit Date Glioblastoma multiforme November 26, 2 025 2:43pm Glioblastoma multiforme November 29, 2 025 2:32pm Glioblastoma multiforme December 03, 2 025 2:41pm Glioblastoma multiforme December 06, 2 025 2:46pm Glioblastoma multiforme December 10, 2 025 1:51pm Edema leg January 10, 2025 2:1 5pm Glioblastoma multiforme January 10, 2025 2:15pm Hemiparesis January 10, 2025 2:1 5pm Glioblastoma multiforme January 10, 2025 2:16pm Abdominal pain January 24, 2025 3:4 9pm DVT (deep venous thrombosis) January 24, 2025 3:49pm Glioblastoma multiforme January 24, 2025 3:49pm Hemiparesis January 24, 2025 3:4 9pm DVT (deep venous thrombosis) February 04, 2025 3:24pm Glioblastoma multiforme February 04, 2025 3:24pm Hemiparesis February 04, 2025 3:2 4pm Pneumonia February 12, 2025 2:0 9pm DVT (deep venous thrombosis) February 18 3:27pm Glioblastoma multiforme February 18, 2025 3: 27pm Hemiparesis February 18, 2025 3:27pm DVT (deep venous thrombosis) February 25 2 025 2:01pm Glioblastoma multiforme February 25, 2025 2 :01pm Hemiparesis February 25, 2025 2:01p m DVT (deep venous thrombosis) March 04, 2 025 8:21am Glioblastoma multiforme March 04, 2025 8 :21am Hemiparesis March 04, 2025 8:21a m DVT (deep venous thrombosis) March 18 2 025 2:15pm Glioblastoma multiforme March 18, 2025 2 :15pm Hemiparesis March 18, 2025 2:15p m Chief Complaint Admit Date [facility] December 03, 2024 2:41pm OTV December 06, 2024 2:46pm [facility] December 10, 2024 1:51pm C71.9 - Malignant neoplasm of brain, uns pecified December 26, 2024 12:54pm GLIOBLASTOMA January 07, 2025 1:2 2pm 4[facility] January 10, 2025 2:1 5pm 1 MONTH F/U POST RT January 10, 2025 2:1 6pm BILATERAL LG SWELLING January 10, 2025 3 :46pm abd pain January 17, 2025 10:3 7am Encounter for other specified prophylact ic measure January 23, 2025 12:56pm [facility] January 24, 2025 3:4 9pm 1.5 [facility] LAB[facility] February 04, 2025 3:2 4pm CHEST CONGESTION February 12, 2025 2:0 9pm cough February 12, 2025 2:4 4pm COMPARE TO PRIOR February 13, 2025 8:0 6am [facility]-LABS@3:30 February 18, 2025 3:27pm Encounter for other specified prophylact ic measure February 20, 2025 1:01pm 1 WEEK, NO LABS, REVIEW MRI February 25 2:01pm DVT February 25, 2025 3:29p m 1 WK, LABS, REVIEW DOPPLER March 04 8:21am 2[facility] March 18, 2025 2:15p m Encounter for other specified prophylact ic measure March 20, 2025 12:54pm WEAKNESS/R ARM HEMIPAPRASIS. RX HERE Mar 2:30pm RAD TX April 01, 2025 1:45 pm 2 [facility] - LABS April 01, 2025 1:53 pm Reason for Visit Admit Date Glioblastoma multiforme December 03, 2 025 2:41pm Glioblastoma multiforme December 06, 2 025 2:46pm Glioblastoma multiforme December 10, 2 025 1:51pm Edema leg January 10, 2025 2:1 5pm Glioblastoma multiforme January 10, 2025 2:15pm Hemiparesis January 10, 2025 2:1 5pm Glioblastoma multiforme January 10, 2025 2:16pm Abdominal pain January 24, 2025 3:4 9pm DVT (deep venous thrombosis) January 24, 2025 3:49pm Glioblastoma multiforme January 24, 2025 3:49pm Hemiparesis January 24, 2025 3:4 9pm DVT (deep venous thrombosis) February 04, 2025 3:24pm Glioblastoma multiforme February 04, 2025 3:24pm Hemiparesis February 04, 2025 3:2 4pm Pneumonia February 12, 2025 2:0 9pm DVT (deep venous thrombosis) February 18 3:27pm Glioblastoma multiforme February 18, 2025 3: 27pm Hemiparesis February 18, 2025 3:27pm DVT (deep venous thrombosis) February 25, 2 025 2:01pm Glioblastoma multiforme February 25, 2025 2 :01pm Hemiparesis February 25, 2025 2:01p m DVT (deep venous thrombosis) March 04, 2 025 8:21am Glioblastoma multiforme March 04, 2025 8 :21am Hemiparesis March 04, 2025 8:21a m DVT (deep venous thrombosis) March 18, 2 025 2:15pm Glioblastoma multiforme March 18, 2025 2 :15pm Hemiparesis March 18, 2025 2:15p m DVT (deep venous thrombosis) April 01, 2025 1:53pm Glioblastoma multiforme April 01, 2025 1:53pm Hemiparesis April 01, 2025 1:53 pm Chief Complaint Admit Date C71.9 - Malignant neoplasm of brain, uns pecified December 26, 2024 12:54pm GLIOBLASTOMA January 07, 2025 1:2 2pm [facility] January 10, 2025 2:1 5pm 1 MONTH F/U POST RT January 10, 2025 2:1 6pm BILATERAL LG SWELLING January 10, 2025 3 :46pm abd pain January 17, 2025 10:3 7am Encounter for other specified prophylact ic measure January 23, 2025 12:56pm 2[facility] January 24, 2025 3:4 9pm 1.5 [facility] LABS February 04, 2025 3:2 4pm CHEST CONGESTION February 12, 2025 2:0 9pm cough February 12, 2025 2:4 4pm COMPARE TO PRIOR February 13, 2025 8:0 6am [facility] LABS-LABS@3:30 February 18, 2025 3:27pm Encounter for other specified prophylact ic measure February 20, 2025 1:01pm 1 WEEK, NO LABS, REVIEW MRI February 25 2:01pm DVT February 25, 2025 3:29p m 1 WK, LABS, REVIEW DOPPLER March 04 8:21am 2[facility] LABS March 18, 2025 2:15p m Encounter for other specified prophylact ic measure March 20, 2025 12:54pm RAD TX April 01, 2025 1:45 pm 2 [facility] - LABS April 01, 2025 1:53 pm WEAKNESS/R ARM HEMIPAPRASIS. RX HERE Angel Luis e 2024 2:30pm HEADACHES, FREQUENT FALLS, GBM TREATMENT April 08, 2025 12:42pm Reason for Visit Admit Date Edema leg January 10, 2025 2:1 5pm Glioblastoma multiforme January 10, 2025 2:15pm Hemiparesis January 10, 2025 2:1 5pm Glioblastoma multiforme January 10, 2025 2:16pm Abdominal pain January 24, 2025 3:4 9pm DVT (deep venous thrombosis) January 24, 2025 3:49pm Glioblastoma multiforme January 24, 2025 3:49pm Hemiparesis January 24, 2025 3:4 9pm DVT (deep venous thrombosis) February 04, 2025 3:24pm Glioblastoma multiforme February 04, 2025 3:24pm Hemiparesis February 04, 2025 3:2 4pm Pneumonia February 12, 2025 2:0 9pm DVT (deep venous thrombosis) February 18 3:27pm Glioblastoma multiforme February 18, 2025 3: 27pm Hemiparesis February 18, 2025 3:27pm DVT (deep venous thrombosis) February 25, 2 025 2:01pm Glioblastoma multiforme February 25, 2025 2 :01pm Hemiparesis February 25, 2025 2:01p m DVT (deep venous thrombosis) March 04, 2 025 8:21am Glioblastoma multiforme March 04, 2025 8 :21am Hemiparesis March 04, 2025 8:21a m DVT (deep venous thrombosis) March 18 2 025 2:15pm Glioblastoma multiforme March 18, 2025 2 :15pm Hemiparesis March 18, 2025 2:15p m DVT (deep venous thrombosis) April 01, 2025 1:53pm Glioblastoma multiforme April 01, 2025 1:53pm Hemiparesis April 01, 2025 1:53 pm Chief Complaint Admit Date C71.9 - Malignant neoplasm of brain, uns pecified December 26, 2024 12:54pm GLIOBLASTOMA January 07, 2025 1:2 2pm [facility] January 10, 2025 2:1 5pm 1 MONTH F/U POST RT January 10, 2025 2:1 6pm BILATERAL LG SWELLING January 10, 2025 3 :46pm abd pain January 17, 2025 10:3 7am Encounter for other specified prophylact ic measure January 23, 2025 12:56pm [facility] January 24, 2025 3:4 9pm 1.5 [facility] LABS February 04, 2025 3:2 4pm CHEST CONGESTION February 12, 2025 2:0 9pm cough February 12, 2025 2:4 4pm COMPARE TO PRIOR February 13, 2025 8:0 6am [facility]-LABS@3:30 February 18, 2025 3:27pm Encounter for other specified prophylact ic measure February 20, 2025 1:01pm 1 WEEK, NO LABS, REVIEW MRI February 25 2:01pm DVT February 25, 2025 3:29p m 1 WK, LABS, REVIEW DOPPLER March 04 8:21am [facility] March 18, 2025 2:15p m Encounter for other specified prophylact ic measure March 20, 2025 12:54pm 2 [facility] - LABS April 01, 2025 1:53 pm HEADACHES, FREQUENT FALLS, GBM TREATMENT April 08, 2025 12:42pm WEAKNESS/R ARM HEMIPAPRASIS. RX HERE Angel Luis e 2024 2:30pm RAD TX April 15, 2025 2:45 pm [facility] RENIEW MRI April 15, 2025 2:5 4pm Reason for Visit Admit Date Edema leg January 10, 2025 2:1 5pm Glioblastoma multiforme January 10, 2025 2:15pm Hemiparesis January 10, 2025 2:1 5pm Glioblastoma multiforme January 10, 2025 2:16pm Abdominal pain January 24, 2025 3:4 9pm DVT (deep venous thrombosis) January 24, 2025 3:49pm Glioblastoma multiforme January 24, 2025 3:49pm Hemiparesis January 24, 2025 3:4 9pm DVT (deep venous thrombosis) February 04, 2025 3:24pm Glioblastoma multiforme February 04, 2025 3:24pm Hemiparesis February 04, 2025 3:2 4pm Pneumonia February 12, 2025 2:0 9pm DVT (deep venous thrombosis) February 18 3:27pm Glioblastoma multiforme February 18, 2025 3: 27pm Hemiparesis February 18, 2025 3:27pm DVT (deep venous thrombosis) February 25, 2 025 2:01pm Glioblastoma multiforme February 25, 2025 2 :01pm Hemiparesis February 25, 2025 2:01p m DVT (deep venous thrombosis) March 04, 2 025 8:21am Glioblastoma multiforme March 04, 2025 8 :21am Hemiparesis March 04, 2025 8:21a m DVT (deep venous thrombosis) March 18, 2 025 2:15pm Glioblastoma multiforme March 18, 2025 2 :15pm Hemiparesis March 18, 2025 2:15p m DVT (deep venous thrombosis) April 01, 2025 1:53pm Glioblastoma multiforme April 01, 2025 1:53pm Hemiparesis April 01, 2025 1:53 pm DVT (deep venous thrombosis) April 15, 2025 2:54pm Glioblastoma multiforme April 15, 2025 2:54pm Hemiparesis April 15, 2025 2:54 pm Chief Complaint Admit Date C71.9 - Malignant neoplasm of brain, uns pecified December 26, 2024 12:54pm GLIOBLASTOMA January 07, 2025 1:2 2pm [facility] January 10, 2025 2:1 5pm 1 MONTH F/U POST RT January 10, 2025 2:1 6pm BILATERAL LG SWELLING January 10, 2025 3 :46pm abd pain January 17, 2025 10:3 7am Encounter for other specified prophylact ic measure January 23, 2025 12:56pm [facility] January 24, 2025 3:4 9pm 1.5 [facility] LAB[facility] February 04, 2025 3:2 4pm CHEST CONGESTION February 12, 2025 2:0 9pm cough February 12, 2025 2:4 4pm COMPARE TO PRIOR February 13, 2025 8:0 6am [facility]-LABS@3:30 February 18, 2025 3:27pm Encounter for other specified prophylact ic measure February 20, 2025 1:01pm 1 WEEK, NO LABS, REVIEW MRI February 25 2:01pm DVT February 25, 2025 3:29p m 1 WK, LABS, REVIEW DOPPLER March 04 8:21am [facility] March 18, 2025 2:15p m Encounter for other specified prophylact ic measure March 20, 2025 12:54pm 2 [facility] - LABS April 01, 2025 1:53 pm HEADACHES, FREQUENT FALLS, GBM TREATMENT April 08, 2025 12:42pm WEAKNESS/R ARM HEMIPAPRASIS. RX HERE Angel Luis e 2024 2:30pm RAD TX April 15, 2025 2:45 pm [facility] RENIEW MRI April 15, 2025 2:5 4pm PORT CONSULT April 17, 2025 10:11 am Chief Complaint Admit Date C71.9 - Malignant neoplasm of brain, uns pecified December 26, 2024 12:54pm GLIOBLASTOMA January 07, 2025 1:2 2pm [facility] January 10, 2025 2:1 5pm 1 MONTH F/U POST RT January 10, 2025 2:1 6pm BILATERAL LG SWELLING January 10, 2025 3 :46pm abd pain January 17, 2025 10:3 7am Encounter for other specified prophylact ic measure January 23, 2025 12:56pm [facility] January 24, 2025 3:4 9pm 1.5 [facility] LABS February 04, 2025 3:2 4pm CHEST CONGESTION February 12, 2025 2:0 9pm cough February 12, 2025 2:4 4pm COMPARE TO PRIOR February 13, 2025 8:0 6am [facility]-LABS@3:30 February 18, 2025 3:27pm Encounter for other specified prophylact ic measure February 20, 2025 1:01pm 1 WEEK, NO LABS, REVIEW MRI February 25 2:01pm DVT February 25, 2025 3:29p m 1 WK, LABS, REVIEW DOPPLER March 04 8:21am [facility] March 18, 2025 2:15p m Encounter for other specified prophylact ic measure March 20, 2025 12:54pm 2 [facility] - LABS April 01, 2025 1:53 pm HEADACHES, FREQUENT FALLS, GBM TREATMENT April 08, 2025 12:42pm WEAKNESS/R ARM HEMIPAPRASIS. RX HERE Angel Luis e 2024 2:30pm RAD TX April 15, 2025 2:45 pm [facility] RENIEW MRI April 15, 2025 2:5 4pm PORT CONSULT April 17, 2025 10:11 am CHEMO ED April 22, 2025 9:03a m Reason for Visit Admit Date Edema leg January 10, 2025 2:1 5pm Glioblastoma multiforme January 10, 2025 2:15pm Hemiparesis January 10, 2025 2:1 5pm Glioblastoma multiforme January 10, 2025 2:16pm Abdominal pain January 24, 2025 3:4 9pm DVT (deep venous thrombosis) January 24, 2025 3:49pm Glioblastoma multiforme January 24, 2025 3:49pm Hemiparesis January 24, 2025 3:4 9pm DVT (deep venous thrombosis) February 04, 2025 3:24pm Glioblastoma multiforme February 04, 2025 3:24pm Hemiparesis February 04, 2025 3:2 4pm Pneumonia February 12, 2025 2:0 9pm DVT (deep venous thrombosis) February 18 3:27pm Glioblastoma multiforme February 18, 2025 3: 27pm Hemiparesis February 18, 2025 3:27pm DVT (deep venous thrombosis) February 25, 2 025 2:01pm Glioblastoma multiforme February 25, 2025 2 :01pm Hemiparesis February 25, 2025 2:01p m DVT (deep venous thrombosis) March 04, 2 025 8:21am Glioblastoma multiforme March 04, 2025 8 :21am Hemiparesis March 04, 2025 8:21a m DVT (deep venous thrombosis) March 18, 2 025 2:15pm Glioblastoma multiforme March 18, 2025 2 :15pm Hemiparesis March 18, 2025 2:15p m DVT (deep venous thrombosis) April 01, 2025 1:53pm Glioblastoma multiforme April 01, 2025 1:53pm Hemiparesis April 01, 2025 1:53 pm DVT (deep venous thrombosis) April 15, 2025 2:54pm Glioblastoma multiforme April 15, 2025 2:54pm Hemiparesis April 15, 2025 2:54 pm Encounter for insertion of venous access port April 17, 2025 10:11am DVT (deep venous thrombosis) April 22, 025 9:03am Glioblastoma multiforme April 22, 2025 9 :03am Hemiparesis April 22, 2025 9:03a m Chief Complaint Admit Date C71.9 - Malignant neoplasm of brain, uns pecified December 26, 2024 12:54pm GLIOBLASTOMA January 07, 2025 1:2 2pm [facility] January 10, 2025 2:1 5pm 1 MONTH F/U POST RT January 10, 2025 2:1 6pm BILATERAL LG SWELLING January 10, 2025 3 :46pm abd pain January 17, 2025 10:3 7am Encounter for other specified prophylact ic measure January 23, 2025 12:56pm [facility] January 24, 2025 3:4 9pm 1.5 [facility] LABS February 04, 2025 3:2 4pm CHEST CONGESTION February 12, 2025 2:0 9pm cough February 12, 2025 2:4 4pm COMPARE TO PRIOR February 13, 2025 8:0 6am [facility]-LABS@3:30 February 18, 2025 3:27pm Encounter for other specified prophylact ic measure February 20, 2025 1:01pm 1 WEEK, NO LABS, REVIEW MRI February 25 2:01pm DVT February 25, 2025 3:29p m 1 WK, LABS, REVIEW DOPPLER March 04 8:21am [facility] March 18, 2025 2:15p m Encounter for other specified prophylact ic measure March 20, 2025 12:54pm 2 [facility] - LABS April 01, 2025 1:53 pm HEADACHES, FREQUENT FALLS, GBM TREATMENT April 08, 2025 12:42pm WEAKNESS/R ARM HEMIPAPRASIS. RX HERE Angel Luis e 2024 2:30pm RAD TX April 15, 2025 2:45 pm [facility] RENIEW MRI April 15, 2025 2:5 4pm PORT CONSULT April 17, 2025 10:11 am CHEMO ED April 22, 2025 9:03a m Encounter for other specified prophylact ic measure April 22, 2025 10:35am Chief Complaint Admit Date GLIOBLASTOMA January 07, 2025 1:2 2pm [facility] January 10, 2025 2:1 5pm 1 MONTH F/U POST RT January 10, 2025 2:1 6pm BILATERAL LG SWELLING January 10, 2025 3 :46pm abd pain January 17, 2025 10:3 7am Encounter for other specified prophylact ic measure January 23, 2025 12:56pm [facility] January 24, 2025 3:4 9pm 1.5 [facility] LABS February 04, 2025 3:2 4pm CHEST CONGESTION February 12, 2025 2:0 9pm cough February 12, 2025 2:4 4pm COMPARE TO PRIOR February 13, 2025 8:0 6am [facility]-LABS@3:30 February 18, 2025 3:27pm Encounter for other specified prophylact ic measure February 20, 2025 1:01pm 1 WEEK, NO LABS, REVIEW MRI February 25 2:01pm DVT February 25, 2025 3:29p m 1 WK, LABS, REVIEW DOPPLER March 04 8:21am [facility] March 18, 2025 2:15p m Encounter for other specified prophylact ic measure March 20, 2025 12:54pm 2 [facility] - LABS April 01, 2025 1:53 pm HEADACHES, FREQUENT FALLS, GBM TREATMENT April 08, 2025 12:42pm RAD TX April 15, 2025 2:45 pm [facility] RENIEW MRI April 15, 2025 2:5 4pm PORT CONSULT April 17, 2025 10:11 am CHEMO ED April 22, 2025 9:03a m Encounter for other specified prophylact ic measure April 22, 2025 10:35am WEAKNESS/R ARM HEMIPAPRASIS. RX HERE Apr 2:30pm Insertion, Vascular Port right poss left May 07, 2025 8:39am Insertion, Vascular Port right poss left May 07, 2025 9:53am Chief Complaint Admit Date [facility] January 10, 2025 2:1 5pm 1 MONTH F/U POST RT January 10, 2025 2:1 6pm BILATERAL LG SWELLING January 10, 2025 3 :46pm abd pain January 17, 2025 10:3 7am Encounter for other specified prophylact ic measure January 23, 2025 12:56pm [facility] January 24, 2025 3:4 9pm 1.5 [facility]KS LABS February 04, 2025 3:2 4pm CHEST CONGESTION February 12, 2025 2:0 9pm cough February 12, 2025 2:4 4pm COMPARE TO PRIOR February 13, 2025 8:0 6am [facility]-LABS@3:30 February 18, 2025 3:27pm Encounter for other specified prophylact ic measure February 20, 2025 1:01pm 1 WEEK, NO LABS, REVIEW MRI February 25 2:01pm DVT February 25, 2025 3:29p m 1 WK, LABS, REVIEW DOPPLER March 04 8:21am [facility] March 18, 2025 2:15p m Encounter for other specified prophylact ic measure March 20, 2025 12:54pm 2 [facility] - LABS April 01, 2025 1:53 pm HEADACHES, FREQUENT FALLS, GBM TREATMENT April 08, 2025 12:42pm [facility] RENIEW MRI April 15, 2025 2:5 4pm PORT CONSULT April 17, 2025 10:11 am CHEMO ED April 22, 2025 9:03a m Encounter for other specified prophylact ic measure April 22, 2025 10:35am WEAKNESS/R ARM HEMIPAPRASIS. RX HERE Apr 2:30pm Insertion, Vascular Port right poss left May 07, 2025 8:39am Insertion, Vascular Port right poss left May 07, 2025 9:53am RAD TX May 08, 2025 8:15 am [facility] NEW START May 08, 2025 8:21 am SWELLING LEFT May 08, 2025 10:0 6am Reason for Visit Admit Date Edema leg January 10, 2025 2:1 5pm Glioblastoma multiforme January 10, 2025 2:15pm Hemiparesis January 10, 2025 2:1 5pm Glioblastoma multiforme January 10, 2025 2:16pm Abdominal pain January 24, 2025 3:4 9pm DVT (deep venous thrombosis) January 24, 2025 3:49pm Glioblastoma multiforme January 24, 2025 3:49pm Hemiparesis January 24, 2025 3:4 9pm DVT (deep venous thrombosis) February 04, 2025 3:24pm Glioblastoma multiforme February 04, 2025 3:24pm Hemiparesis February 04, 2025 3:2 4pm Pneumonia February 12, 2025 2:0 9pm DVT (deep venous thrombosis) February 18 3:27pm Glioblastoma multiforme February 18, 2025 3: 27pm Hemiparesis February 18, 2025 3:27pm DVT (deep venous thrombosis) February 25 025 2:01pm Glioblastoma multiforme February 25, 2025 2 :01pm Hemiparesis February 25, 2025 2:01p m DVT (deep venous thrombosis) March 04, 2 025 8:21am Glioblastoma multiforme March 04, 2025 8 :21am Hemiparesis March 04, 2025 8:21a m DVT (deep venous thrombosis) March 18 025 2:15pm Glioblastoma multiforme March 18, 2025 2 :15pm Hemiparesis March 18, 2025 2:15p m DVT (deep venous thrombosis) April 01, 2025 1:53pm Glioblastoma multiforme April 01, 2025 1:53pm Hemiparesis April 01, 2025 1:53 pm DVT (deep venous thrombosis) April 15, 2025 2:54pm Glioblastoma multiforme April 15, 2025 2:54pm Hemiparesis April 15, 2025 2:54 pm Encounter for insertion of venous access port April 17, 2025 10:11am DVT (deep venous thrombosis) April 22 025 9:03am Glioblastoma multiforme April 22, 2025 9 :03am Hemiparesis April 22, 2025 9:03a m Chemotherapy management, encounter for Fabian caba 2024 8:21am Encounter for monoclonal antibody treatm ent for malignancy May 08, 2025 8:21am Swelling of left lower extremity May [id number] 8:21am DVT (deep venous thrombosis) May 08, 2025 8:21am Glioblastoma multiforme May 08, 2025 8:21am Hemiparesis May 08, 2025 8:21 am Chief Complaint Admit Date abd pain January 17, 2025 10:3 7am Encounter for other specified prophylact ic measure January 23, 2025 12:56pm [facility] January 24, 2025 3:4 9pm 1.5 [facility]KS LABS February 04, 2025 3:2 4pm CHEST CONGESTION February 12, 2025 2:0 9pm cough February 12, 2025 2:4 4pm COMPARE TO PRIOR February 13, 2025 8:0 6am [facility]-LABS@3:30 February 18, 2025 3:27pm Encounter for other specified prophylact ic measure February 20, 2025 1:01pm 1 WEEK, NO LABS, REVIEW MRI February 25 2:01pm DVT February 25, 2025 3:29p m 1 WK, LABS, REVIEW DOPPLER March 04 8:21am [facility] March 18, 2025 2:15p m Encounter for other specified prophylact ic measure March 20, 2025 12:54pm 2 [facility] - LABS April 01, 2025 1:53 pm HEADACHES, FREQUENT FALLS, GBM TREATMENT April 08, 2025 12:42pm [facility] RENIEW MRI April 15, 2025 2:5 4pm PORT CONSULT April 17, 2025 10:11 am CHEMO ED April 22, 2025 9:03a m Encounter for other specified prophylact ic measure April 22, 2025 10:35am WEAKNESS/R ARM HEMIPAPRASIS. RX HERE Brad 2024 2:30pm Insertion, Vascular Port right poss left May 07, 2025 8:39am Insertion, Vascular Port right poss left May 07, 2025 9:53am RAD TX May 08, 2025 8:15 am [facility]S NEW START May 08, 2025 8:21 am SWELLING LEFT May 08, 2025 10:0 6am Reason for Visit Admit Date Abdominal pain January 24, 2025 3:4 9pm DVT (deep venous thrombosis) January 24, 2025 3:49pm Glioblastoma multiforme January 24, 2025 3:49pm Hemiparesis January 24, 2025 3:4 9pm DVT (deep venous thrombosis) February 04, 2025 3:24pm Glioblastoma multiforme February 04, 2025 3:24pm Hemiparesis February 04, 2025 3:2 4pm Pneumonia February 12, 2025 2:0 9pm DVT (deep venous thrombosis) February 18 3:27pm Glioblastoma multiforme February 18, 2025 3: 27pm Hemiparesis February 18, 2025 3:27pm DVT (deep venous thrombosis) February 25 025 2:01pm Glioblastoma multiforme February 25, 2025 2 :01pm Hemiparesis February 25, 2025 2:01p m DVT (deep venous thrombosis) March 04 8:21am Glioblastoma multiforme March 04, 2025 8 :21am Hemiparesis March 04, 2025 8:21a m DVT (deep venous thrombosis) March 18 2:15pm Glioblastoma multiforme March 18, 2025 2 :15pm Hemiparesis March 18, 2025 2:15p m DVT (deep venous thrombosis) April 01, 2025 1:53pm Glioblastoma multiforme April 01, 2025 1:53pm Hemiparesis April 01, 2025 1:53 pm DVT (deep venous thrombosis) April 15, 2025 2:54pm Glioblastoma multiforme April 15, 2025 2:54pm Hemiparesis April 15, 2025 2:54 pm Encounter for insertion of venous access port April 17, 2025 10:11am DVT (deep venous thrombosis) April 22 9:03am Glioblastoma multiforme April 22, 2025 9 :03am Hemiparesis April 22, 2025 9:03a m Chemotherapy management, encounter for J rosales 2024 8:21am Encounter for monoclonal antibody treatm ent for malignancy May 08, 2025 8:21am Swelling of left lower extremity May [id number] 8:21am DVT (deep venous thrombosis) May 08, 2025 8:21am Glioblastoma multiforme May 08, 2025 8:21am Hemiparesis May 08, 2025 8:21 am Chief Complaint Admit Date Encounter for other specified prophylact ic measure January 23, 2025 12:56pm [facility] January 24, 2025 3:4 9pm 1.5 [facility]KS LABS February 04, 2025 3:2 4pm CHEST CONGESTION February 12, 2025 2:0 9pm cough February 12, 2025 2:4 4pm COMPARE TO PRIOR February 13, 2025 8:0 6am [facility]S-LABS@3:30 February 18, 2025 3:27pm Encounter for other specified prophylact ic measure February 20, 2025 1:01pm 1 WEEK, NO LABS, REVIEW MRI February 25 2:01pm DVT February 25, 2025 3:29p m 1 WK, LABS, REVIEW DOPPLER March 04 8:21am [facility] March 18, 2025 2:15p m Encounter for other specified prophylact ic measure March 20, 2025 12:54pm 2 [facility] - LABS April 01, 2025 1:53 pm HEADACHES, FREQUENT FALLS, GBM TREATMENT April 08, 2025 12:42pm [facility] RENIEW MRI April 15, 2025 2:5 4pm PORT CONSULT April 17, 2025 10:11 am CHEMO ED April 22, 2025 9:03a m Encounter for other specified prophylact ic measure April 22, 2025 10:35am WEAKNESS/R ARM HEMIPAPRASIS. RX HERE Apr 2:30pm Insertion, Vascular Port right poss left May 07, 2025 8:39am Insertion, Vascular Port right poss left May 07, 2025 9:53am [facility]S NEW START May 08, 2025 8:21 am SWELLING LEFT May 08, 2025 10:0 6am RAD TX May 22, 2025 8:0 0am [facility] TX May 22, 2025 8:2 4am Reason for Visit Admit Date Abdominal pain January 24, 2025 3:4 9pm DVT (deep venous thrombosis) January 24, 2025 3:49pm Glioblastoma multiforme January 24, 2025 3:49pm Hemiparesis January 24, 2025 3:4 9pm DVT (deep venous thrombosis) February 04, 2025 3:24pm Glioblastoma multiforme February 04, 2025 3:24pm Hemiparesis February 04, 2025 3:2 4pm Pneumonia February 12, 2025 2:0 9pm DVT (deep venous thrombosis) February 18 3:27pm Glioblastoma multiforme February 18, 2025 3: 27pm Hemiparesis February 18, 2025 3:27pm DVT (deep venous thrombosis) February 25, 2 025 2:01pm Glioblastoma multiforme February 25, 2025 2 :01pm Hemiparesis February 25, 2025 2:01p m DVT (deep venous thrombosis) March 04, 2 025 8:21am Glioblastoma multiforme March 04, 2025 8 :21am Hemiparesis March 04, 2025 8:21a m DVT (deep venous thrombosis) March 18 2:15pm Glioblastoma multiforme March 18, 2025 2 :15pm Hemiparesis March 18, 2025 2:15p m DVT (deep venous thrombosis) April 01, 2025 1:53pm Glioblastoma multiforme April 01, 2025 1:53pm Hemiparesis April 01, 2025 1:53 pm DVT (deep venous thrombosis) April 15, 2025 2:54pm Glioblastoma multiforme April 15, 2025 2:54pm Hemiparesis April 15, 2025 2:54 pm Encounter for insertion of venous access port April 17, 2025 10:11am DVT (deep venous thrombosis) April 22 9:03am Glioblastoma multiforme April 22, 2025 9 :03am Hemiparesis April 22, 2025 9:03a m Chemotherapy management, encounter for Fabian caba 2024 8:21am Encounter for monoclonal antibody treatm ent for malignancy May 08, 2025 8:21am Swelling of left lower extremity May [id number] 8:21am DVT (deep venous thrombosis) May 08, 2025 8:21am Glioblastoma multiforme May 08, 2025 8:21am Hemiparesis May 08, 2025 8:21 am Chemotherapy management, encounter for A ugust 2024 8:24am Encounter for monoclonal antibody treatm ent for malignancy May 22, 2025 8:24am DVT (deep venous thrombosis) May 22, 2025 8:24am Glioblastoma multiforme May 22, 2025 8:24am Hemiparesis May 22, 2025 8:2 4am Chief Complaint Admit Date CHEST CONGESTION February 12, 2025 2:0 9pm cough February 12, 2025 2:4 4pm COMPARE TO PRIOR February 13, 2025 8:0 6am [facility]S-LABS@3:30 February 18, 2025 3:27pm Encounter for other specified prophylact ic measure February 20, 2025 1:01pm 1 WEEK, NO LABS, REVIEW MRI February 25 2:01pm DVT February 25, 2025 3:29p m 1 WK, LABS, REVIEW DOPPLER March 04 8:21am [facility] LABS March 18, 2025 2:15p m Encounter for other specified prophylact ic measure March 20, 2025 12:54pm 2 [facility] - LABS April 01, 2025 1:53 pm HEADACHES, FREQUENT FALLS, GBM TREATMENT April 08, 2025 12:42pm [facility] RENIEW MRI April 15, 2025 2:5 4pm PORT CONSULT April 17, 2025 10:11 am CHEMO ED April 22, 2025 9:03a m Encounter for other specified prophylact ic measure April 22, 2025 10:35am WEAKNESS/R ARM HEMIPAPRASIS. RX HERE Apr 2:30pm Insertion, Vascular Port right poss left May 07, 2025 8:39am Insertion, Vascular Port right poss left May 07, 2025 9:53am [facility]S NEW START May 08, 2025 8:21 am SWELLING LEFT May 08, 2025 10:0 6am [facility] TX May 22, 2025 8:2 4am RAD TX June 05, 2025 9: 15am [facility] TX June 05, 2025 9: 18am Reason for Visit Admit Date Pneumonia February 12, 2025 2:0 9pm DVT (deep venous thrombosis) February 18 3:27pm Glioblastoma multiforme February 18, 2025 3: 27pm Hemiparesis February 18, 2025 3:27pm DVT (deep venous thrombosis) February 25, 2 025 2:01pm Glioblastoma multiforme February 25, 2025 2 :01pm Hemiparesis February 25, 2025 2:01p m DVT (deep venous thrombosis) March 04, 2 025 8:21am Glioblastoma multiforme March 04, 2025 8 :21am Hemiparesis March 04, 2025 8:21a m DVT (deep venous thrombosis) March 18, 2 025 2:15pm Glioblastoma multiforme March 18, 2025 2 :15pm Hemiparesis March 18, 2025 2:15p m DVT (deep venous thrombosis) April 01, 2025 1:53pm Glioblastoma multiforme April 01, 2025 1:53pm Hemiparesis April 01, 2025 1:53 pm DVT (deep venous thrombosis) April 15, 2025 2:54pm Glioblastoma multiforme April 15, 2025 2:54pm Hemiparesis April 15, 2025 2:54 pm Encounter for insertion of venous access port April 17, 2025 10:11am DVT (deep venous thrombosis) April 22, 2 025 9:03am Glioblastoma multiforme April 22, 2025 9 :03am Hemiparesis April 22, 2025 9:03a m Chemotherapy management, encounter for Fabian rosales 2024 8:21am Encounter for monoclonal antibody treatm ent for malignancy May 08, 2025 8:21am Swelling of left lower extremity May [id number] 8:21am DVT (deep venous thrombosis) May 08, 2025 8:21am Glioblastoma multiforme May 08, 2025 8:21am Hemiparesis May 08, 2025 8:21 am Chemotherapy management, encounter for A ugust 2024 8:24am Encounter for monoclonal antibody treatm ent for malignancy May 22, 2025 8:24am DVT (deep venous thrombosis) May 22, 2025 8:24am Glioblastoma multiforme May 22, 2025 8:24am Hemiparesis May 22, 2025 8:2 4am Chemotherapy management, encounter for A ugust 2024 9:18am Encounter for monoclonal antibody treatm ent for malignancy June 05, 2025 9:18am DVT (deep venous thrombosis) May 9:18am Glioblastoma multiforme June 05 9:18am Hemiparesis June 05, 2025 9: 18am Chief Complaint Admit Date Encounter for other specified prophylact ic measure February 20, 2025 1:01pm 1 WEEK, NO LABS, REVIEW MRI February 25 2:01pm DVT February 25, 2025 3:29p m 1 WK, LABS, REVIEW DOPPLER March 04 8:21am [facility] LABS March 18, 2025 2:15p m Encounter for other specified prophylact ic measure March 20, 2025 12:54pm 2 [facility] - LABS April 01, 2025 1:53 pm HEADACHES, FREQUENT FALLS, GBM TREATMENT April 08, 2025 12:42pm [facility] RENIEW MRI April 15, 2025 2:5 4pm PORT CONSULT April 17, 2025 10:11 am CHEMO ED April 22, 2025 9:03a m Encounter for other specified prophylact ic measure April 22, 2025 10:35am WEAKNESS/R ARM HEMIPAPRASIS. RX HERE Apr 2:30pm Insertion, Vascular Port right poss left May 07, 2025 8:39am Insertion, Vascular Port right poss left May 07, 2025 9:53am [facility]S NEW START May 08, 2025 8:21 am SWELLING LEFT May 08, 2025 10:0 6am [facility] TX May 22, 2025 8:2 4am [facility] TX June 05, 2025 9: 18am RAD TX June 19, 2025 9:00am [facility] TX June 19, 2025 9:01am Reason for Visit Admit Date DVT (deep venous thrombosis) February 25, 025 2:01pm Glioblastoma multiforme February 25, 2025 2 :01pm Hemiparesis February 25, 2025 2:01p m DVT (deep venous thrombosis) March 04 025 8:21am Glioblastoma multiforme March 04, 2025 8 :21am Hemiparesis March 04, 2025 8:21a m DVT (deep venous thrombosis) March 18 025 2:15pm Glioblastoma multiforme March 18, 2025 2 :15pm Hemiparesis March 18, 2025 2:15p m DVT (deep venous thrombosis) April 01, 2025 1:53pm Glioblastoma multiforme April 01, 2025 1:53pm Hemiparesis April 01, 2025 1:53 pm DVT (deep venous thrombosis) April 15, 2025 2:54pm Glioblastoma multiforme April 15, 2025 2:54pm Hemiparesis April 15, 2025 2:54 pm Encounter for insertion of venous access port April 17, 2025 10:11am DVT (deep venous thrombosis) April 22 025 9:03am Glioblastoma multiforme April 22, 2025 9 :03am Hemiparesis April 22, 2025 9:03a m Chemotherapy management, encounter for J rosales 2024 8:21am Encounter for monoclonal antibody treatm ent for malignancy May 08, 2025 8:21am Swelling of left lower extremity May [id number] 8:21am DVT (deep venous thrombosis) May 08, 2025 8:21am Glioblastoma multiforme May 08, 2025 8:21am Hemiparesis May 08, 2025 8:21 am Chemotherapy management, encounter for A ugust 2024 8:24am Encounter for monoclonal antibody treatm ent for malignancy May 22, 2025 8:24am DVT (deep venous thrombosis) May 22, 2025 8:24am Glioblastoma multiforme May 22, 2025 8:24am Hemiparesis May 22, 2025 8:2 4am Chemotherapy management, encounter for A ugust 2024 9:18am Encounter for monoclonal antibody treatm ent for malignancy June 05, 2025 9:18am DVT (deep venous thrombosis) May 9:18am Glioblastoma multiforme June 05 9:18am Hemiparesis June 05, 2025 9: 18am Chemotherapy management, encounter for S eptember 2024 9:01am Encounter for monoclonal antibody treatm ent for malignancy June 19, 2025 9:01am DVT (deep venous thrombosis) June 192024 9:01am Glioblastoma multiforme June 19, 025 9:01am Hemiparesis June 19, 2025 9:01am Additional Source Comments Reason for Visit (unrecogniz ed section and content) Reason Comments brain Patient is transfer from [place]. 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 He has been reporting increased fatigue Specialty Diagnoses / Procedures Referred By Gino oseguera Referred To Contact Emergency Medicine Diagnoses Other specified disorders of brain Frontal lobe Mass Procedures NA [email or web address] [address] [place], [place] [address] [address] Phone: tel: [email or web address] [address] [place] [phone] Phone: tel: Referral ID Status Reason Start Date Expiration Date Visits Re quested Visits Authorized [id number] 3 3 Reason Comments New patient, to establish relationship Reason Comments follow up Scheduled Active and Recently Administ ered Medications (unrecognized section and content) Medication Order 09/13/2024 09/14/2024 09/15/2024 dexAMETHasone (DECADRON) 4 MG/ML injection (CANCELED) 4 mg, Intravenous Push, Every 6 hours, First dose on Tue09/14/24 at 1330, Until Discontinued 1325 (Given - Provider: Cathy Aleman RN) dexAMETHasone (DECADRON) tablet 4 mg, Oral, 2 TIMES DAILY, First dose on Tue09/14/24 at 2100, Until Discontinued 0018 (Given - Provid er: Nidhi Lozano LPN)1015 (Given - Provider: Karen Wolf RN)2100 (Due) Gadoterate Meglumine (DOTAREM) 10 MMOL/20ML solution (COMPLETED) 20 mL, Intravenous Push, Once at Radiology exam, 1 dose, Starting on Tue09/14/24 at 1105, Until Tue09/14/24 at 1106, Imaging Protocol Orders 110 (Given - Provider: Gatito Tracy - Comment: [id number]) iohexol (OMNIPAQUE) 300 MG/ML injection (COMPLETED) 50 mL, Oral, Once at Radiology exam, 1 dose, Starting on Tue09/14/24 at 2237, Until Tue09/14/24 at 2237, Imaging Protocol Orders 2236 (Given - Provider: Gabriela Youssef) iohexol (OMNIPAQUE) 350 MG/ML injection (COMPLETED) 100 mL, Intravenous Push, Once at Radiology exam, 1 dose, Starting on Tue09/14/24 at 2237, Until Tue09/14/24 at 2237, Imaging Protocol Orders 223 (Bolus given - Provider: Gabriela Youssef) pantoprazole (PROTONIX) tablet 40 mg, Oral, DAILY 30 MIN BEFORE BREAKFAST, First dose on Tue09/15/24 at 0830, Until Discontinued 0830 (Hold/Not Given - Provider: Karen Wolf RN - Reason: Patient refused) PRN Medication Order 09/13/2024 09/14/2024 09/15/2024 acetaminophen (TYLENOL) tablet 650 mg, Oral, EVERY 4 HOURS PRN, Starting on Tue09/14/24 at 0706, Until Discontinued, Mild Pain (pain score 1,2,3), Fever 38 C and higher 0838 (Given - Provider: Cathy Aleman RN - Comment: h/a) melatonin tablet 3 mg, Oral, AT BEDTIME PRN, Starting on Tue09/14/24 at 0414, Until Discontinued, Sleep ondansetron (ZOFRAN-ODT) disintegrating tablet 4 mg, Oral, EVERY 6 HOURS PRN, Starting on Tue09/14/24 at 0414, Until Discontinued, Nausea, Vomiting oxyCODONE immediate release tablet 5 mg, Oral, EVERY 4 HOURS PRN, Starting on Tue09/14/24 at 1300, Until Discontinued, Moderate Pain (pain score 4,5,6), Severe Pain (pain score 7,8,9,10) 1009 (Given - Provid er: Karen Wolf RN) Scheduled Medication Order 09/20/2024 09/21/2024 09/22/2024 aprepitant (EMEND) capsule (COMPLETED) 40 mg, Oral, ONCE, 1 dose, On Tue09/21/24 at 0730, Pre-op 0708 (Given - Provider: Adriana Clemons RN) ceFAZolin (ANCEF) 2,000 mg in dextrose 50 mL ivpb (COMPLETED) 2,000 mg, Intravenous, EVERY 8 HOURS ANTIBIOTIC, 2 doses, First dose on Tue09/21/24 at 1200, Last dose on Tue09/21/24 at 2200 1142 (IV New Bag - Provider: Felice ePters RN)2319 (IV New Bag - Provider: Ellie Meredith RN) dexAMETHasone (DECADRON) tablet 2 mg, Oral, 2 TIMES DAILY, First dose on Tue09/21/24 at 1200, Until Discontinued 1159 (Given - Provider: Felice Peters RN)1953 (Given - Provider: Ellie Meredith RN) 1000 (Given - Provider: Amanda Rouse RN)2100 (Due) docusate sodium (COLACE) capsule 100 mg, Oral, 2 TIMES DAILY, First dose on Tue09/21/24 at 1200, Until Discontinued 1140 (Given - Provider: Felice Peters RN)1953 (Given - Provider: Ellie Meredith RN) 1000 (Given - Provider: Amanda Rouse RN)2100 (Due) pantoprazole (PROTONIX) tablet 40 mg, Oral, DAILY 30 MIN BEFORE BREAKFAST, First dose on Tue09/22/24 at 0830, Until Discontinued 1000 (Given - Provid er: Amanda Rouse RN) scopolamine (TRANSDERM-SCOP) 1 MG/3DAYS patch (CANCELED) 1.5 mg, Transdermal, EVERY 72 HOURS, First dose on Tue09/21/24 at 0000, Until Discontinued 0708 (Patch Applied - Provider: Adriana Clemons RN) Continuous Medication Order 09/20/2024 09/21/2024 09/22/2024 sodium chloride 0.9 % iv infusion () 500 mL, at 30 mL/hr, Intravenous, Once Continuous, Starting on Tue09/21/24 at 1200, Until Tue09/22/24 at 0420 1141 (IV New Bag - Provider: Felice Peters RN)1200 (Rate Verify - Provider: Felice Peters RN)1300 (Rate Verify - Provider: Felice Peters, RN)1400 (Rate Verify - Provider: Felice Peters RN)1500 (Rate Verify - Provider: Felice Peters RN)1600 (Rate Verify - Provider: Felice Peters, RN)1700 (Rate Verify - Provider: Felice Peters, RN)1800 (Rate Verify - Provider: Felice Peters RN)1900 (Rate Verify - Provider: Felice Peters RN)2000 (Rate Verify - Provider: Ellie Meredith RN)2100 (Rate Verify - Provider: Ellie Meredith RN)2200 (Rate Verify - Provider: Ellie Meredith RN)2300 (Rate Verify - Provider: Ellie Meredith RN) 0000 (Rate Verify - Provider: Ellie Meredith RN)0100 (Rate Verify - Provider: Ellie Meredith RN)0200 (Rate Verify - Provider: Ellie Meredith RN)0300 (Rate Verify - Provider: Ellie Meredith RN)0400 (Rate Verify - Provider: Ellie Meredith RN) PRN Medication Order 09/20/2024 09/21/2024 09/22/2024 acetaminophen (TYLENOL) tablet 650 mg, Oral, EVERY 4 HOURS PRN, Starting on Tue09/21/24 at 1112, Until Discontinued, Mild Pain (pain score 1,2,3) 1140 (Given - Provider: Felice Peters RN) bacitracin 500 UNIT/GM ointment (CANCELED) PRN, Starting on Tue09/21/24 at 0914, Until Tue09/21/24 at 1044, Intra-op 0914 (Given - Provider: Muriel Sands MD - Comment: pin sites) bismuth 3% 1 X 8 (XEROFORM) 1 X 8 gauze (CANCELED) PRN, Starting on Tue09/21/24 at 0915, Until Tue09/21/24 at 1044, Intra-op 0915 (Given - Provider: Muriel Sands MD) gentamicin 80 mg, dose administered = 1 Each in sodium chloride 1,000 mL irrigation (CANCELED) PRN, Starting on Tue09/21/24 at 0915, Until Tue09/21/24 at 1044 0915 (Given - Provider: Muriel Sands MD) lidocaine-EPINEPHrine (XYLOCAINE) 1 %-1:[id number] injection SOLN (CANCELED) PRN, Starting on Tue09/21/24 at 0844, Until Tue09/21/24 at 1044, Intra-op 0844 (Given - Provider: Muriel Sands MD) oxyCODONE immediate release tablet 5 mg, Oral, EVERY 4 HOURS PRN, Starting on Tue09/21/24 at 1112, Until Discontinued, Moderate Pain (pain score 4,5,6) 1952 (Given - Provider: Ellie Meredith RN) oxyCODONE immediate release tablet 10 mg, Oral, EVERY 4 HOURS PRN, Starting on Tue09/21/24 at 1112, Until Discontinued, Severe Pain (pain score 7,8,9,10) Care Teams (unrecognized sec tion and content) Team Status: Active Member Role Status Dates No Primary Care Physician Primary Care Provider Active Team Status: Inactive Member Role Status Dates Dr. Ez Lee MD Primary Care Provider Active Start: October 29, 2024 End: October 29, 2024 Dr. Ez Lee MD Referring Provider Active Start: October 29, 2024 End: October 29, [address] NP, CAMPAIGN COORDINATOR-C Attending Provider Active Start: October 29, 2024 End: October 29, 2024 Team Status: Inactive Member Role Status Dates Dr. Ez Lee MD Primary Care Provider Active Start: October 31, 2024 End: October 31, [address] NP CAMPAIGN COORDINATOR-C Attending Provider Active Start: October 31, 2024 End: October 31, [address] NP CAMPAIGN COORDINATOR-C Referring Provider Active Start: October 31, 2024 End: October 31, 2024 Team Status: Inactive Member Role Status Dates Dr. Ez Lee MD Primary Care Provider Active Start: November 01, 2024 End: November 01, 2024 Dr. Stephen Davis DO Attending Provider Active Start: November 01, 2024 End: November 01, 2024 Dr. Stephen Davis DO Referring Provider Active Start: November 01, 2024 End: November 01, 2024 Team Status: Inactive Member Role Status Dates Dr. Ez Lee MD Primary Care Provider Active Start: November 05, 2024 End: November 05, 2024 Dr. Ez Lee MD Referring Provider Active Start: November 05, 2024 End: November 05, 2024 Dr. Geoff Dallas MD Attending Provider Active S tart: November 05, 2024 End: November 05, 2024 Team Status: Inactive Member Role Status Dates Dr. Ez Lee MD Primary Care Provider Active Start: November 08, 2024 End: November 08, 2024 Dr. Stephen Davis DO Attending Provider Active Start: November 08, 2024 End: November 08, 2024 Dr. Stephen Davis DO Referring Provider Active Start: November 08, 2024 End: November 08, 2024 Team Status: Inactive Member Role Status Dates Dr. Ez Lee MD Primary Care Provider Active Start: November 12, 2024 End: November 12, 2024 Dr. Ez Lee MD Referring Provider Active Start: November 12, 2024 End: November 12, [address] CAMPAIGN COORDINATOR, CAMPAIGN COORDINATOR-C Attending Provider Active Start: November 12, 2024 End: November 12, 2024 Team Status: Inactive Member Role Status Dates Dr. Ez Lee MD Primary Care Provider Active Start: November 15, 2024 End: November 15, 2024 Dr. Stephen Davis DO Attending Provider Active Start: November 15, 2024 End: November 15, 2024 Dr. Stephen Davis DO Referring Provider Active Start: November 15, 2024 End: November 15, 2024 Team Status: Inactive Member Role Status Dates Dr. Ez Lee MD Primary Care Provider Active Start: November 19, 2024 End: November 19, 2024 Dr. Ez Lee MD Referring Provider Active Start: November 19, 2024 End: November 19, [address] CAMPAIGN COORDINATOR, CAMPAIGN COORDINATOR-C Attending Provider Active Start: November 19, 2024 End: November 19, 2024 Team Status: Inactive Member Role Status Dates Dr. Ez Lee MD Primary Care Provider Active Start: November 22, 2024 End: November 22, 2024 Dr. Stephen Davis DO Attending Provider Active Start: November 22, 2024 End: November 22, 2024 Dr. Stephen Davis DO Referring Provider Active Start: November 22, 2024 End: November 22, 2024 Team Status: Inactive Member Role Status Dates Dr. Ez Lee MD Primary Care Provider Active Start: November 26, 2024 End: November 26, 2024 Dr. Ez Lee MD Referring Provider Active Start: November 26, 2024 End: November 26, 2024 Vielka Ariana CAMPAIGN COORDINATOR, CAMPAIGN COORDINATOR-C Attending Provider Active Start: November 26, 2024 End: November 26, 2024 Team Status: Inactive Member Role Status Dates Dr. Ez Lee MD Primary Care Provider Active Start: November 28, 2024 End: November 28, 2024 Vielka Ariana CAMPAIGN COORDINATOR, CAMPAIGN COORDINATOR-C Attending Provider Active Start: November 28, 2024 End: November 28, 2024 Vielka Ariana CAMPAIGN COORDINATOR, CAMPAIGN COORDINATOR-C Referring Provider Active Start: November 28, 2024 End: November 28, 2024 Team Status: Inactive Member Role Status Dates Dr. Ez Lee MD Primary Care Provider Active Start: November 29, 2024 End: November 29, 2024 Dr. Stephen Davis DO Attending Provider Active Start: November 29, 2024 End: November 29, 2024 Dr. Stephen Davis DO Referring Provider Active Start: November 29, 2024 End: November 29, 2024 Team Status: Inactive Member Role Status Dates Dr. Ez Lee MD Primary Care Provider Active Start: December 03, 2024 End: December 03, 2024 Dr. Ez Lee MD Referring Provider Active Start: December 03, 2024 End: December 03, 2024 Vielka Ariana CAMPAIGN COORDINATOR, CAMPAIGN COORDINATOR-C Attending Provider Active Start: December 03, 2024 End: December 03, 2024 Team Status: Inactive Member Role Status Dates Dr. Ez Lee MD Primary Care Provider Active Start: December 06, 2024 End: December 06, 2024 Dr. Stephen Davis DO Attending Provider Active Start: December 06, 2024 End: December 06, 2024 Dr. Stephen Davis DO Referring Provider Active Start: December 06, 2024 End: December 06, 2024 Team Status: Inactive Member Role Status Dates Dr. Ez Lee MD Primary Care Provider Active Start: December 10, 2024 End: December 10, 2024 Dr. Ez Lee MD Referring Provider Active Start: December 10, 2024 End: December 10, [address] CAMPAIGN COORDINATOR, CAMPAIGN COORDINATOR-C Attending Provider Active Start: December 10, 2024 End: December 10, 2024 Team Status: Inactive Member Role Status Dates Dr. Ez Lee MD Primary Care Provider Active Start: December 26, 2024 End: December 26, [address] CAMPAIGN COORDINATOR, CAMPAIGN COORDINATOR-C Attending Provider Active Start: December 26, 2024 End: December 26, [address] CAMPAIGN COORDINATOR, CAMPAIGN COORDINATOR-C Referring Provider Active Start: December 26, 2024 End: December 26, 2024 Team Status: Inactive Member Role Status Dates Dr. Ez Lee MD Primary Care Provider Active Start: January 07, 2025 End: January 07, 2025 Dr. Stephen Davis DO Attending Provider Active Start: January 07, 2025 End: January 07, 2025 Dr. Stephen Davis DO Referring Provider Active Start: January 07, 2025 End: January 07, 2025 Team Status: Inactive Member Role Status Dates Dr. Ez Lee MD Primary Care Provider Active Start: January 10, 2025 End: January 10, 2025 Dr. Ez Lee MD Referring Provider Active Start: January 10, 2025 End: January 10, 2025 Dr. Geoff Dallas MD Attending Provider Active S tart: January 10, 2025 End: January 10, 2025 Team Status: Inactive Member Role Status Dates Dr. Ez Lee MD Primary Care Provider Active Start: January 10, 2025 End: January 10, 2025 Dr. Ez Lee MD Referring Provider Active Start: January 10, 2025 End: January 10, 2025 Dr. Stephen Davis DO Attending Provider Active Start: January 10, 2025 End: January 10, 2025 Team Status: Inactive Member Role Status Dates Dr. Ez Lee MD Primary Care Provider Active Start: January 10, 2025 End: January 10, 2025 Dr. Geoff Dallas MD Attending Provider Active S tart: January 10, 2025 End: January 10, 2025 Dr. Geoff Dallas MD Referring Provider Active S tart: January 10, 2025 End: January 10, 2025 Team Status: Active Member Role Status Dates Dr. Ez Lee MD Primary Care Provider Active Start: January 10, 2025 Dr. Trevor Hair MD Attending Provider Active S tart: January 10, 2025 Dr. Geoff Dallas MD Referring Provider Active S tart: January 10, 2025 Team Status: Inactive Member Role Status Dates No Primary Care Physician Primary Care Provider Active Start: January 17, 2025 End: January 17, 2025 Dr. Ye Sparks DO Attending Provider Activ e Start: January 17, 2025 End: January 17, 2025 Dr. Ye Sparks DO Emergency Provider Activ e Start: January 17, 2025 End: January 17, 2025 Team Status: Inactive Member Role Status Dates Vielka Lane CAMPAIGN COORDINATOR, CAMPAIGN COORDINATOR-C Attending Provider Active Start: January 23, 2025 End: January 23, 2025 Vielka Ariana CAMPAIGN COORDINATOR, CAMPAIGN COORDINATOR-C Referring Provider Active Start: January 23, 2025 End: January 23, 2025 No Primary Care Physician Primary Care Provider Active Start: January 23, 2025 End: January 23, 2025 Team Status: Inactive Member Role Status Dates Dr. Geoff Dallas MD Attending Provider Active S tart: January 24, 2025 End: January 24, 2025 No Primary Care Physician Primary Care Provider Active Start: January 24, 2025 End: January 24, 2025 No Primary Care Physician Referring Provider Active Start: January 24, 2025 End: January 24, 2025 Team Status: Inactive Member Role Status Dates No Primary Care Physician Primary Care Provider Active Start: February 04, 2025 End: February 04, 2025 No Primary Care Physician Referring Provider Active Start: February 04, 2025 End: February 04, 2025 Dr. Geoff Dallas MD Attending Provider Active S tart: February 04, 2025 End: February 04, 2025 Team Status: Inactive Member Role Status Dates No Primary Care Physician Primary Care Provider Active Start: February 12, 2025 End: February 12, 2025 No Primary Care Physician Referring Provider Active Start: February 12, 2025 End: February 12, 2025 CHENG Alvarez Attending Provider Active Start: February 12, 2025 End: February 12, 2025 Team Status: Inactive Member Role Status Dates No Primary Care Physician Primary Care Provider Active Start: February 12, 2025 End: February 12, 2025 CHENG Alvarez Attending Provider Active Start: February 12, 2025 End: February 12, 2025 CHENG Alvarez Referring Provider Active Start: February 12, 2025 End: February 12, 2025 Team Status: Inactive Member Role Status Dates Dr. Stephen Davis DO Attending Provider Active Start: February 13, 2025 End: February 13, 2025 Dr. Stephen Davis DO Referring Provider Active Start: February 13, 2025 End: February 13, 2025 No Primary Care Physician Primary Care Provider Active Start: February 13, 2025 End: February 13, 2025 Team Status: Active Member Role Status Dates Dr. Ez Lee MD Primary Care Provider Active Start: February 18, 2025 Dr. Geoff Dallas MD Attending Provider Active S tart: February 18, 2025 Dr. Geoff Dallas MD Referring Provider Active S tart: February 18, 2025 Team Status: Inactive Member Role Status Dates No Primary Care Physician Primary Care Provider Active Start: February 18, 2025 End: February 18, 2025 No Primary Care Physician Referring Provider Active Start: February 18, 2025 End: February 18, 2025 Dr. Geoff Dallas MD Attending Provider Active S tart: February 18, 2025 End: February 18, 2025 Team Status: Inactive Member Role Status Dates Vielka Lane CAMPAIGN COORDINATOR, CAMPAIGN COORDINATOR-C Attending Provider Active Start: February 20, 2025 End: February 20, [address] CAMPAIGN COORDINATOR, CAMPAIGN COORDINATOR-C Referring Provider Active Start: February 20, 2025 End: February 20, 2025 No Primary Care Physician Primary Care Provider Active Start: February 20, 2025 End: February 20, 2025 Team Status: Active Member Role Status Dates Dr. Ez Lee MD Primary Care Provider Active Team Status: Active Member Role Status Dates Dr. Ez Lee MD Primary Care Provider Active Start: October 05, 2024 Carlita Meza Attending Provider Active Start: October 05, 2024 Team Status: Inactive Member Role Status Dates Dr. Ez Lee MD Primary Care Provider Active Start: October 11, 2024 End: October 11, 2024 Dr. Geoff Dallas MD Attending Provider Active S tart: October 11, 2024 End: October 11, 2024 LEIA BOUDREAUX Referring Provider Active Start: [email or web address] End: October 11, 2024 Team Status: Inactive Member Role Status Dates Dr. Ez Lee MD Primary Care Provider Active Start: October 16, 2024 End: October 16, 2024 Dr. Ez Lee MD Referring Provider Active Start: October 16, 2024 End: October 16, 2024 Dr. Stephen Davis DO Attending Provider Active Start: October 16, 2024 End: October 16, 2024 Team Status: Inactive Member Role Status Dates Dr. Ez Lee MD Primary Care Provider Active Start: October 18, 2024 End: October 18, 2024 Dr. Stephen Davis DO Attending Provider Active Start: October 18, 2024 End: October 18, 2024 Dr. Stephen Davis DO Referring Provider Active Start: October 18, 2024 End: October 18, 2024 Team Status: Active Member Role Status Dates Dr. Ez Lee MD Primary Care Provider Active Start: October 18, 2024 Dr. Stephen Davis DO Attending Provider Active Start: October 18, 2024 Dr. Stephen Davis DO Referring Provider Active Start: October 18, 2024 Team Status: Inactive Member Role Status Dates Dr. Ez Lee MD Primary Care Provider Active Start: October 23, 2024 End: October 23, 2024 Dr. Ez Lee MD Referring Provider Active Start: October 23, 2024 End: October 23, [address] CAMPAIGN COORDINATOR, CAMPAIGN COORDINATOR-C Attending Provider Active Start: October 23, 2024 End: October 23, 2024 Team Status: Active Member Role Status Dates Dr. Ez Lee MD Primary Care Provider Active Start: October 25, 2024 Dr. Stephen Davis DO Attending Provider Active Start: October 25, 2024 Dr. Stephen Davis DO Referring Provider Active Start: October 25, 2024 Team Status: Active Member Role Status Dates Dr. Ez Lee MD Primary Care Provider Active Start: October 26, 2024 Dr. Stephen Davis DO Attending Provider Active Start: October 26, 2024 Dr. Stephen Davis DO Referring Provider Active Start: October 26, 2024 Team Status: Active Member Role Status Dates Dr. Ez Lee MD Primary Care Provider Active Start: January 10, 2025 Dr. Geoff Dallas MD Attending Provider Active S tart: January 10, 2025 Dr. Geoff Dallas MD Referring Provider Active S tart: January 10, 2025 Team Status: Active Member Role Status Dates Dr. Ez Lee MD Primary Care Provider Active Start: January 10, 2025 Dr. 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 Ez Lee MD Primary Care Provider Active Start: September 13, 2024 End: September 13, 2024 Dr. Hugo Paul DO Attending Provider Active Start: September 13, 2024 End: September 13, 2024 Dr. Hugo Paul DO Referring Provider Active Start: September 13, 2024 End: September 13, 2024 Dr. Hugo Paul DO Emergency Provider Active Start: September 13, 2024 End: September 13, 2024 Team Status: Active Member Role Status Dates Dr. Ez Lee MD Primary Care Provider Active Start: December 10, 2024 Dr. Geoff Dallas MD Attending Provider Active S tart: December 10, 2024 Dr. Geoff Dallas MD Referring Provider Active S tart: December 10, 2024 Team Status: Inactive Member Role Status Dates No Primary Care Physician Primary Care Provider Active Start: January 17, 2025 End: January 17, 2025 Dr. Ye Sparks DO Emergency Provider Activ e Start: January 17, 2025 End: January 17, 2025 Team Status: Active Member Role Status Dates Dr. Ez Lee MD Primary Care Provider Active Start: January 24, 2025 Dr. Geoff Dallas MD Attending Provider Active S tart: January 24, 2025 Dr. Geoff Dallas MD Referring Provider Active S tart: January 24, 2025 Team Status: Inactive Member Role Status Dates No Primary Care Physician Primary Care Provider Active Start: February 25, 2025 End: February 25, 2025 No Primary Care Physician Referring Provider Active Start: February 25, 2025 End: February 25, 2025 Dr. Geoff Dallas MD Attending Provider Active S tart: February 25, 2025 End: February 25, 2025 Team Status: Inactive Member Role Status Dates No Primary Care Physician Primary Care Provider Active Start: February 25, 2025 End: February 25, 2025 Dr. Geoff Dallas MD Attending Provider Active S tart: February 25, 2025 End: February 25, 2025 Dr. Geoff Dallas MD Referring Provider Active S tart: February 25, 2025 End: February 25, 2025 Team Status: Active Member Role Status Dates No Primary Care Physician Primary Care Provider Active Start: February 25, 2025 Dr. Trevor Hair MD Attending Provider Active S tart: February 25, 2025 Team Status: Active Member Role Status Dates Dr. Ez Lee MD Primary Care Provider Active Start: March 04, 2025 Dr. Geoff Dallas MD Attending Provider Active S tart: March 04, 2025 Dr. Geoff Dallas MD Referring Provider Active S tart: March 04, 2025 Team Status: Inactive Member Role Status Dates No Primary Care Physician Primary Care Provider Active Start: March 04, 2025 End: March 04, 2025 No Primary Care Physician Referring Provider Active Start: March 04, 2025 End: March 04, 2025 Dr. Geoff Dallas MD Attending Provider Active S tart: March 04, 2025 End: March 04, 2025 Team Status: Active Member Role Status Dates No Primary Care Physician Primary Care Provider Active Start: February 25, 2025 Dr. Trevor Hair MD Attending Provider Active S tart: February 25, 2025 Dr. Geoff Dallas MD Referring Provider Active S tart: February 25, 2025 Team Status: Active Member Role Status Dates Dr. Geoff Dallas MD Attending Provider Active S tart: March 14, 2025 Dr. Geoff Dallas MD Referring Provider Active S tart: March 14, 2025 No Primary Care Physician Primary Care Provider Active Start: March 14, 2025 Team Status: Active Member Role Status Dates Dr. Ez Lee MD Primary Care Provider Active Start: March 18, 2025 Dr. Geoff Dallas MD Attending Provider Active S tart: March 18, 2025 Dr. Geoff Dallas MD Referring Provider Active S tart: March 18, 2025 Team Status: Inactive Member Role Status Dates Vielka Lane CAMPAIGN COORDINATOR, CAMPAIGN COORDINATOR-C Attending Provider Active Start: March 20, 2025 End: March 20, 2025 Vielka Ariana CAMPAIGN COORDINATOR, CAMPAIGN COORDINATOR-C Referring Provider Active Start: March 20, 2025 End: March 20, 2025 No Primary Care Physician Primary Care Provider Active Start: March 20, 2025 End: March 20, 2025 Team Status: Active Member Role Status Dates Dr. Geoff Dallas MD Attending Provider Active S tart: March 22, 2025 Dr. Geoff Dallas MD Referring Provider Active S tart: March 22, 2025 No Primary Care Physician Primary Care Provider Active Start: March 22, 2025 Team Status: Inactive Member Role Status Dates No Primary Care Physician Primary Care Provider Active Start: March 18, 2025 End: March 18, 2025 No Primary Care Physician Referring Provider Active Start: March 18, 2025 End: March 18, 2025 Dr. Enrique Vallejo MD Attending Provider Active Start: March 18, 2025 End: March 18, 2025 Team Status: Active Member Role Status Dates Dr. Geoff Dallas MD Attending Provider Active S tart: March 29, 2025 Dr. Geoff Dallas MD Referring Provider Active S tart: March 29, 2025 No Primary Care Physician Primary Care Provider Active Start: March 29, 2025 Team Status: Active Member Role Status Dates Dr. Ez eLe MD Primary Care Provider Active Start: April 01, 2025 Dr. Geoff Dallas MD Attending Provider Active S tart: April 01, 2025 Dr. Geoff Dallas MD Referring Provider Active S tart: April 01, 2025 Team Status: Inactive Member Role Status Dates No Primary Care Physician Primary Care Provider Active Start: April 01, 2025 End: April 01, 2025 No Primary Care Physician Referring Provider Active Start: April 01, 2025 End: April 01, 2025 Vielka Ariana CAMPAIGN COORDINATOR, CAMPAIGN COORDINATOR-C Attending Provider Active Start: April 01, 2025 End: April 01, 2025 Team Status: Active Member Role/Relationship Status Dates No Primary Care Physician Primary Care Provider Active Team Status: Inactive Member Role/Relationship Status Dates Dr. Ez Lee MD Primary Care Provider Active Start: December 26, 2024 End: December 26, 2024 Vielka Ariana CAMPAIGN COORDINATOR, CAMPAIGN COORDINATOR-C Attending Provider Active Start: December 26, 2024 End: December 26, 2024 Vielka Ariana CAMPAIGN COORDINATOR, CAMPAIGN COORDINATOR-C Referring Provider Active Start: December 26, 2024 End: December 26, 2024 Team Status: Inactive Member Role/Relationship Status Dates Dr. Ez Lee MD Primary Care Provider Active Start: January 07, 2025 End: January 07, 2025 Dr. Stephen Davis DO Attending Provider Active Start: January 07, 2025 End: January 07, 2025 Dr. Stephen Davis DO Referring Provider Active Start: January 07, 2025 End: January 07, 2025 Team Status: Inactive Member Role/Relationship Status Dates Dr. Ez Lee MD Primary Care Provider Active Start: January 10, 2025 End: January 10, 2025 Dr. Ez Lee MD Referring Provider Active Start: January 10, 2025 End: January 10, 2025 Dr. Geoff Dallas MD Attending Provider Active S tart: January 10, 2025 End: January 10, 2025 Team Status: Inactive Member Role/Relationship Status Dates Dr. Ez Lee MD Primary Care Provider Active Start: January 10, 2025 End: January 10, 2025 Dr. Ez Lee MD Referring Provider Active Start: January 10, 2025 End: January 10, 2025 Dr. Stephen Davis DO Attending Provider Active Start: January 10, 2025 End: January 10, 2025 Team Status: Inactive Member Role/Relationship Status Dates Dr. Ez Lee MD Primary Care Provider Active Start: January 10, 2025 End: January 10, 2025 Dr. Geoff Dallas MD Attending Provider Active S tart: January 10, 2025 End: January 10, 2025 Dr. Geoff Dallas MD Referring Provider Active S tart: January 10, 2025 End: January 10, 2025 Team Status: Active Member Role/Relationship Status Dates Dr. Ez Lee MD Primary Care Provider Active Start: January 10, 2025 Dr. Trevor Hair MD Attending Provider Active S tart: January 10, 2025 Dr. Geoff Dallas MD Referring Provider Active S tart: January 10, 2025 Team Status: Inactive Member Role/Relationship Status Dates No Primary Care Physician Primary Care Provider Active Start: January 17, 2025 End: January 17, 2025 Dr. Ye Sparks DO Attending Provider Activ e Start: January 17, 2025 End: January 17, 2025 Dr. Ye Sparks DO Emergency Provider Activ e Start: January 17, 2025 End: January 17, 2025 Team Status: Inactive Member Role/Relationship Status Dates Vielka Lane CAMPAIGN COORDINATOR, CAMPAIGN COORDINATOR-C Attending Provider Active Start: January 23, 2025 End: January 23, [address] CAMPAIGN COORDINATOR, CAMPAIGN COORDINATOR-C Referring Provider Active Start: January 23, 2025 End: January 23, 2025 No Primary Care Physician Primary Care Provider Active Start: January 23, 2025 End: January 23, 2025 Team Status: Inactive Member Role/Relationship Status Dates Dr. Geoff Dallas MD Attending Provider Active S tart: January 24, 2025 End: January 24, 2025 No Primary Care Physician Primary Care Provider Active Start: January 24, 2025 End: January 24, 2025 No Primary Care Physician Referring Provider Active Start: January 24, 2025 End: January 24, 2025 Team Status: Inactive Member Role/Relationship Status Dates No Primary Care Physician Primary Care Provider Active Start: February 04, 2025 End: February 04, 2025 No Primary Care Physician Referring Provider Active Start: February 04, 2025 End: February 04, 2025 Dr. Geoff Dallas MD Attending Provider Active S tart: February 04, 2025 End: February 04, 2025 Team Status: Inactive Member Role/Relationship Status Dates No Primary Care Physician Primary Care Provider Active Start: February 12, 2025 End: February 12, 2025 No Primary Care Physician Referring Provider Active Start: February 12, 2025 End: February 12, 2025 CHENG Alvarez Attending Provider Active Start: February 12, 2025 End: February 12, 2025 Team Status: Inactive Member Role/Relationship Status Dates No Primary Care Physician Primary Care Provider Active Start: February 12, 2025 End: February 12, 2025 CHENG Alvarez Attending Provider Active Start: February 12, 2025 End: February 12, 2025 CHENG Alvarez Referring Provider Active Start: February 12, 2025 End: February 12, 2025 Team Status: Inactive Member Role/Relationship Status Dates Dr. Stephen Davis DO Attending Provider Active Start: February 13, 2025 End: February 13, 2025 Dr. Stephen Davis DO Referring Provider Active Start: February 13, 2025 End: February 13, 2025 No Primary Care Physician Primary Care Provider Active Start: February 13, 2025 End: February 13, 2025 Team Status: Inactive Member Role/Relationship Status Dates No Primary Care Physician Primary Care Provider Active Start: February 18, 2025 End: February 18, 2025 No Primary Care Physician Referring Provider Active Start: February 18, 2025 End: February 18, 2025 Dr. Geoff Dallas MD Attending Provider Active S tart: February 18, 2025 End: February 18, 2025 Team Status: Inactive Member Role/Relationship Status Dates Vielka Lane CAMPAIGN COORDINATOR, CAMPAIGN COORDINATOR-C Attending Provider Active Start: February 20, 2025 End: February 20, [address] CAMPAIGN COORDINATOR, CAMPAIGN COORDINATOR-C Referring Provider Active Start: February 20, 2025 End: February 20, 2025 No Primary Care Physician Primary Care Provider Active Start: February 20, 2025 End: February 20, 2025 Team Status: Inactive Member Role/Relationship Status Dates No Primary Care Physician Primary Care Provider Active Start: February 25, 2025 End: February 25, 2025 No Primary Care Physician Referring Provider Active Start: February 25, 2025 End: February 25, 2025 Dr. Geoff Dallas MD Attending Provider Active S tart: February 25, 2025 End: February 25, 2025 Team Status: Inactive Member Role/Relationship Status Dates No Primary Care Physician Primary Care Provider Active Start: February 25, 2025 End: February 25, 2025 Dr. Geoff Dallas MD Attending Provider Active S tart: February 25, 2025 End: February 25, 2025 Dr. Geoff Dallas MD Referring Provider Active S tart: February 25, 2025 End: February 25, 2025 Team Status: Active Member Role/Relationship Status Dates No Primary Care Physician Primary Care Provider Active Start: February 25, 2025 Dr. Trevor Hair MD Attending Provider Active S tart: February 25, 2025 Dr. Geoff Dallas MD Referring Provider Active S tart: February 25, 2025 Team Status: Inactive Member Role/Relationship Status Dates No Primary Care Physician Primary Care Provider Active Start: March 04, 2025 End: March 04, 2025 No Primary Care Physician Referring Provider Active Start: March 04, 2025 End: March 04, 2025 Dr. Geoff Dallas MD Attending Provider Active S tart: March 04, 2025 End: March 04, 2025 Team Status: Inactive Member Role/Relationship Status Dates No Primary Care Physician Primary Care Provider Active Start: March 18, 2025 End: March 18, 2025 No Primary Care Physician Referring Provider Active Start: March 18, 2025 End: March 18, 2025 Dr. Enrique Vallejo MD Attending Provider Active Start: March 18, 2025 End: March 18, 2025 Team Status: Inactive Member Role/Relationship Status Dates Vielka Lane CAMPAIGN COORDINATOR, CAMPAIGN COORDINATOR-C Attending Provider Active Start: March 20, 2025 End: March 20, [address] CAMPAIGN COORDINATOR, CAMPAIGN COORDINATOR-C Referring Provider Active Start: March 20, 2025 End: March 20, 2025 No Primary Care Physician Primary Care Provider Active Start: March 20, 2025 End: March 20, 2025 Team Status: Active Member Role/Relationship Status Dates Dr. Ez Lee MD Primary Care Provider Active Start: April 01, 2025 Dr. Geoff Dallas MD Attending Provider Active S tart: April 01, 2025 Dr. Geoff Dallas MD Referring Provider Active S tart: April 01, 2025 Team Status: Inactive Member Role/Relationship Status Dates No Primary Care Physician Primary Care Provider Active Start: April 01, 2025 End: April 01, 2025 No Primary Care Physician Referring Provider Active Start: April 01, 2025 End: April 01, 2025 Vielka Ariana CAMPAIGN COORDINATOR, CAMPAIGN COORDINATOR-C Attending Provider Active Start: April 01, 2025 End: April 01, 2025 Team Status: Active Member Role/Relationship Status Dates Dr. Geoff Dallas MD Attending Provider Active S tart: April 05, 2025 Dr. Geoff Dallas MD Referring Provider Active S tart: April 05, 2025 No Primary Care Physician Primary Care Provider Active Start: April 05, 2025 Team Status: Inactive Member Role/Relationship Status Dates No Primary Care Physician Primary Care Provider Active Start: April 08, 2025 End: April 08, 2025 Vielka Ariana CAMPAIGN COORDINATOR, CAMPAIGN COORDINATOR-C Attending Provider Active Start: April 08, 2025 End: April 08, 2025 Vielka Ariana CAMPAIGN COORDINATOR, CAMPAIGN COORDINATOR-C Referring Provider Active Start: April 08, 2025 End: April 08, 2025 Team Status: Inactive Member Role/Relationship Status Dates No Primary Care Physician Primary Care Provider Active Start: April 01, 2025 End: April 01, 2025 No Primary Care Physician Referring Provider Active Start: April 01, 2025 End: April 01, 2025 Vielka Ariana CAMPAIGN COORDINATOR, CAMPAIGN COORDINATOR-C Attending Provider Active Start: April 01, 2025 End: April 01, 2025 Team Status: Inactive Member Role/Relationship Status Dates No Primary Care Physician Primary Care Provider Active Start: April 08, 2025 End: April 08, 2025 Vielka Ariana CAMPAIGN COORDINATOR, CAMPAIGN COORDINATOR-C Attending Provider Active Start: April 08, 2025 End: April 08, 2025 Vielka Ariana CAMPAIGN COORDINATOR, CAMPAIGN COORDINATOR-C Referring Provider Active Start: April 08, 2025 End: April 08, 2025 Team Status: Active Member Role/Relationship Status Dates Dr. Geoff Dallas MD Attending Provider Active S tart: April 12, 2025 Dr. Geoff Dallas MD Referring Provider Active S tart: April 12, 2025 No Primary Care Physician Primary Care Provider Active Start: April 12, 2025 Team Status: Active Member Role/Relationship Status Dates Dr. Ez Lee MD Primary Care Provider Active Start: April 15, 2025 Dr. Geoff Dallas MD Attending Provider Active S tart: April 15, 2025 Dr. Geoff Dallas MD Referring Provider Active S tart: April 15, 2025 Team Status: Inactive Member Role/Relationship Status Dates No Primary Care Physician Primary Care Provider Active Start: April 15, 2025 End: April 15, 2025 No Primary Care Physician Referring Provider Active Start: April 15, 2025 End: April 15, 2025 Dr. Geoff Dallas MD Attending Provider Active S tart: April 15, 2025 End: April 15, 2025 Team Status: Inactive Member Role/Relationship Status Dates No Primary Care Physician Primary Care Provider Active Start: April 17, 2025 End: April 17, 2025 No Primary Care Physician Referring Provider Active Start: April 17, 2025 End: April 17, 2025 Dr. Chavez Mcfadden MD Attending Provider Active Start: April 17, 2025 End: April 17, 2025 Team Status: Inactive Member Role/Relationship Status Dates No Primary Care Physician Primary Care Provider Active Start: April 22, 2025 End: April 22, 2025 No Primary Care Physician Referring Provider Active Start: April 22, 2025 End: April 22, 2025 Vielka Ariana CAMPAIGN COORDINATOR, CAMPAIGN COORDINATOR-C Attending Provider Active Start: April 22, 2025 End: April 22, 2025 Team Status: Inactive Member Role/Relationship Status Dates No Primary Care Physician Primary Care Provider Active Start: April 22, 2025 End: April 22, 2025 Vielka Ariana CAMPAIGN COORDINATOR, CAMPAIGN COORDINATOR-C Attending Provider Active Start: April 22, 2025 End: April 22, 2025 Vielka Ariana CAMPAIGN COORDINATOR, CAMPAIGN COORDINATOR-C Referring Provider Active Start: April 22, 2025 End: April 22, 2025 Team Status: Inactive Member Role/Relationship Status Dates Dr. Ez Lee MD Primary Care Provider Active Start: January 07, 2025 End: January 07, 2025 Dr. Stephen Davis DO Attending Provider Active Start: January 07, 2025 End: January 07, 2025 Dr. Stephen Davis DO Referring Provider Active Start: January 07, 2025 End: January 07, 2025 Team Status: Inactive Member Role/Relationship Status Dates Dr. Ez Lee MD Primary Care Provider Active Start: January 10, 2025 End: January 10, 2025 Dr. Ez Lee MD Referring Provider Active Start: January 10, 2025 End: January 10, 2025 Dr. Geoff Dallas MD Attending Provider Active S tart: January 10, 2025 End: January 10, 2025 Team Status: Inactive Member Role/Relationship Status Dates Dr. Ez Lee MD Primary Care Provider Active Start: January 10, 2025 End: January 10, 2025 Dr. Ez Lee MD Referring Provider Active Start: January 10, 2025 End: January 10, 2025 Dr. Stephen Davis DO Attending Provider Active Start: January 10, 2025 End: January 10, 2025 Team Status: Inactive Member Role/Relationship Status Dates Dr. Ez Lee MD Primary Care Provider Active Start: January 10, 2025 End: January 10, 2025 Dr. Geoff Dallas MD Attending Provider Active S tart: January 10, 2025 End: January 10, 2025 Dr. Geoff Dallas MD Referring Provider Active S tart: January 10, 2025 End: January 10, 2025 Team Status: Active Member Role/Relationship Status Dates Dr. Ez Lee MD Primary Care Provider Active Start: January 10, 2025 Dr. Trevor Hair MD Attending Provider Active S tart: January 10, 2025 Dr. Geoff Dallas MD Referring Provider Active S tart: January 10, 2025 Team Status: Inactive Member Role/Relationship Status Dates No Primary Care Physician Primary Care Provider Active Start: January 17, 2025 End: January 17, 2025 Dr. Ye Sparks DO Attending Provider Activ e Start: January 17, 2025 End: January 17, 2025 Dr. Ye Sparks DO Emergency Provider Activ e Start: January 17, 2025 End: January 17, 2025 Team Status: Inactive Member Role/Relationship Status Dates Vielka Lane CAMPAIGN COORDINATOR, CAMPAIGN COORDINATOR-C Attending Provider Active Start: January 23, 2025 End: January 23, [address] CAMPAIGN COORDINATOR, CAMPAIGN COORDINATOR-C Referring Provider Active Start: January 23, 2025 End: January 23, 2025 No Primary Care Physician Primary Care Provider Active Start: January 23, 2025 End: January 23, 2025 Team Status: Inactive Member Role/Relationship Status Dates Dr. Geoff Dallas MD Attending Provider Active S tart: January 24, 2025 End: January 24, 2025 No Primary Care Physician Primary Care Provider Active Start: January 24, 2025 End: January 24, 2025 No Primary Care Physician Referring Provider Active Start: January 24, 2025 End: January 24, 2025 Team Status: Inactive Member Role/Relationship Status Dates No Primary Care Physician Primary Care Provider Active Start: February 04, 2025 End: February 04, 2025 No Primary Care Physician Referring Provider Active Start: February 04, 2025 End: February 04, 2025 Dr. Geoff Dallas MD Attending Provider Active S tart: February 04, 2025 End: February 04, 2025 Team Status: Inactive Member Role/Relationship Status Dates No Primary Care Physician Primary Care Provider Active Start: February 12, 2025 End: February 12, 2025 No Primary Care Physician Referring Provider Active Start: February 12, 2025 End: February 12, 2025 CHENG Alvarez Attending Provider Active Start: February 12, 2025 End: February 12, 2025 Team Status: Inactive Member Role/Relationship Status Dates No Primary Care Physician Primary Care Provider Active Start: February 12, 2025 End: February 12, 2025 CHENG Alvarez Attending Provider Active Start: February 12, 2025 End: February 12, 2025 CHENG Alvarez Referring Provider Active Start: February 12, 2025 End: February 12, 2025 Team Status: Inactive Member Role/Relationship Status Dates Dr. Stephen Davis DO Attending Provider Active Start: February 13, 2025 End: February 13, 2025 Dr. Stephen Davis DO Referring Provider Active Start: February 13, 2025 End: February 13, 2025 No Primary Care Physician Primary Care Provider Active Start: February 13, 2025 End: February 13, 2025 Team Status: Inactive Member Role/Relationship Status Dates No Primary Care Physician Primary Care Provider Active Start: February 18, 2025 End: February 18, 2025 No Primary Care Physician Referring Provider Active Start: February 18, 2025 End: February 18, 2025 Dr. Geoff Dallas MD Attending Provider Active S tart: February 18, 2025 End: February 18, 2025 Team Status: Inactive Member Role/Relationship Status Dates Vielka Lane CAMPAIGN COORDINATOR, CAMPAIGN COORDINATOR-C Attending Provider Active Start: February 20, 2025 End: February 20, [address] CAMPAIGN COORDINATOR, CAMPAIGN COORDINATOR-C Referring Provider Active Start: February 20, 2025 End: February 20, 2025 No Primary Care Physician Primary Care Provider Active Start: February 20, 2025 End: February 20, 2025 Team Status: Inactive Member Role/Relationship Status Dates No Primary Care Physician Primary Care Provider Active Start: February 25, 2025 End: February 25, 2025 No Primary Care Physician Referring Provider Active Start: February 25, 2025 End: February 25, 2025 Dr. Geoff Dallas MD Attending Provider Active S tart: February 25, 2025 End: February 25, 2025 Team Status: Inactive Member Role/Relationship Status Dates No Primary Care Physician Primary Care Provider Active Start: February 25, 2025 End: February 25, 2025 Dr. Geoff Dallas MD Attending Provider Active S tart: February 25, 2025 End: February 25, 2025 Dr. Geoff Dallas MD Referring Provider Active S tart: February 25, 2025 End: February 25, 2025 Team Status: Active Member Role/Relationship Status Dates No Primary Care Physician Primary Care Provider Active Start: February 25, 2025 Dr. Trevor Hair MD Attending Provider Active S tart: February 25, 2025 Dr. Geoff Dallas MD Referring Provider Active S tart: February 25, 2025 Team Status: Inactive Member Role/Relationship Status Dates No Primary Care Physician Primary Care Provider Active Start: March 04, 2025 End: March 04, 2025 No Primary Care Physician Referring Provider Active Start: March 04, 2025 End: March 04, 2025 Dr. Geoff Dallas MD Attending Provider Active S tart: March 04, 2025 End: March 04, 2025 Team Status: Inactive Member Role/Relationship Status Dates No Primary Care Physician Primary Care Provider Active Start: March 18, 2025 End: March 18, 2025 No Primary Care Physician Referring Provider Active Start: March 18, 2025 End: March 18, 2025 Dr. Enrique Vallejo MD Attending Provider Active Start: March 18, 2025 End: March 18, 2025 Team Status: Inactive Member Role/Relationship Status Dates Vielka Ariana CAMPAIGN COORDINATOR, CAMPAIGN COORDINATOR-C Attending Provider Active Start: March 20, 2025 End: March 20, 2025 Vielka Ariana CAMPAIGN COORDINATOR, CAMPAIGN COORDINATOR-C Referring Provider Active Start: March 20, 2025 End: March 20, 2025 No Primary Care Physician Primary Care Provider Active Start: March 20, 2025 End: March 20, 2025 Team Status: Inactive Member Role/Relationship Status Dates No Primary Care Physician Primary Care Provider Active Start: April 01, 2025 End: April 01, 2025 No Primary Care Physician Referring Provider Active Start: April 01, 2025 End: April 01, 2025 Vielka Ariana CAMPAIGN COORDINATOR, CAMPAIGN COORDINATOR-C Attending Provider Active Start: April 01, 2025 End: April 01, 2025 Team Status: Inactive Member Role/Relationship Status Dates No Primary Care Physician Primary Care Provider Active Start: April 08, 2025 End: April 08, 2025 Vielka Ariana CAMPAIGN COORDINATOR, CAMPAIGN COORDINATOR-C Attending Provider Active Start: April 08, 2025 End: April 08, 2025 Vielka Ariana CAMPAIGN COORDINATOR, CAMPAIGN COORDINATOR-C Referring Provider Active Start: April 08, 2025 End: April 08, 2025 Team Status: Active Member Role/Relationship Status Dates Dr. Ez Lee MD Primary Care Provider Active Start: April 15, 2025 Dr. Geoff Dallas MD Attending Provider Active S tart: April 15, 2025 Dr. Geoff Dallas MD Referring Provider Active S tart: April 15, 2025 Team Status: Inactive Member Role/Relationship Status Dates No Primary Care Physician Primary Care Provider Active Start: April 15, 2025 End: April 15, 2025 No Primary Care Physician Referring Provider Active Start: April 15, 2025 End: April 15, 2025 Dr. Geoff Dallas MD Attending Provider Active S tart: April 15, 2025 End: April 15, 2025 Team Status: Inactive Member Role/Relationship Status Dates No Primary Care Physician Primary Care Provider Active Start: April 17, 2025 End: April 17, 2025 No Primary Care Physician Referring Provider Active Start: April 17, 2025 End: April 17, 2025 Dr. Chavez Mcfadden MD Attending Provider Active Start: April 17, 2025 End: April 17, 2025 Team Status: Inactive Member Role/Relationship Status Dates No Primary Care Physician Primary Care Provider Active Start: April 22, 2025 End: April 22, 2025 No Primary Care Physician Referring Provider Active Start: April 22, 2025 End: April 22, 2025 Vielka Ariana CAMPAIGN COORDINATOR, CAMPAIGN COORDINATOR-C Attending Provider Active Start: April 22, 2025 End: April 22, 2025 Team Status: Inactive Member Role/Relationship Status Dates No Primary Care Physician Primary Care Provider Active Start: April 22, 2025 End: April 22, 2025 Vielka Ariana CAMPAIGN COORDINATOR, CAMPAIGN COORDINATOR-C Attending Provider Active Start: April 22, 2025 End: April 22, 2025 Vielka Ariana CAMPAIGN COORDINATOR, CAMPAIGN COORDINATOR-C Referring Provider Active Start: April 22, 2025 End: April 22, 2025 Team Status: Active Member Role/Relationship Status Dates Dr. Geoff Dallas MD Attending Provider Active S tart: May 03, 2025 Dr. Geoff Dallas MD Referring Provider Active S tart: May 03, 2025 No Primary Care Physician Primary Care Provider Active Start: May 03, 2025 Team Status: Inactive Member Role/Relationship Status Dates No Primary Care Physician Primary Care Provider Active Start: May 07, 2025 End: May 07, 2025 Dr. Chavez Mcfadden MD Attending Provider Active Start: May 07, 2025 End: May 07, 2025 Dr. Chavez Mcfadden MD Referring Provider Active Start: May 07, 2025 End: May 07, 2025 Team Status: Active Member Role/Relationship Status Dates No Primary Care Physician Primary Care Provider Active Start: May 07, 2025 Dr. Chavez Mcfadden MD Attending Provider Active Start: May 07, 2025 Dr. Chavez Mcfadden MD Referring Provider Active Start: May 07, 2025 Dr. Chavez Mcfadden MD Other Provider Active Start: May 07, 2025 Team Status: Inactive Member Role/Relationship Status Dates Dr. Ez Lee MD Primary Care Provider Active Start: January 10, 2025 End: January 10, 2025 Dr. Ez Lee MD Referring Provider Active Start: January 10, 2025 End: January 10, 2025 Dr. Geoff Dallas MD Attending Provider Active S tart: January 10, 2025 End: January 10, 2025 Team Status: Inactive Member Role/Relationship Status Dates Dr. Ez Lee MD Primary Care Provider Active Start: January 10, 2025 End: January 10, 2025 Dr. Ez Lee MD Referring Provider Active Start: January 10, 2025 End: January 10, 2025 Dr. Stephen Davis DO Attending Provider Active Start: January 10, 2025 End: January 10, 2025 Team Status: Inactive Member Role/Relationship Status Dates Dr. Ez Lee MD Primary Care Provider Active Start: January 10, 2025 End: January 10, 2025 Dr. Geoff Dallas MD Attending Provider Active S tart: January 10, 2025 End: January 10, 2025 Dr. Geoff Dallas MD Referring Provider Active S tart: January 10, 2025 End: January 10, 2025 Team Status: Active Member Role/Relationship Status Dates Dr. Ez Lee MD Primary Care Provider Active Start: January 10, 2025 Dr. Trevor Hair MD Attending Provider Active S tart: January 10, 2025 Dr. Geoff Dallas MD Referring Provider Active S tart: January 10, 2025 Team Status: Inactive Member Role/Relationship Status Dates No Primary Care Physician Primary Care Provider Active Start: January 17, 2025 End: January 17, 2025 Dr. Ye Sparks DO Attending Provider Activ e Start: January 17, 2025 End: January 17, 2025 Dr. Ye Sparks DO Emergency Provider Activ e Start: January 17, 2025 End: January 17, 2025 Team Status: Inactive Member Role/Relationship Status Dates Vielka Lane CAMPAIGN COORDINATOR, CAMPAIGN COORDINATOR-C Attending Provider Active Start: January 23, 2025 End: January 23, [address] CAMPAIGN COORDINATOR, CAMPAIGN COORDINATOR-C Referring Provider Active Start: January 23, 2025 End: January 23, 2025 No Primary Care Physician Primary Care Provider Active Start: January 23, 2025 End: January 23, 2025 Team Status: Inactive Member Role/Relationship Status Dates Dr. Geoff Dallas MD Attending Provider Active S tart: January 24, 2025 End: January 24, 2025 No Primary Care Physician Primary Care Provider Active Start: January 24, 2025 End: January 24, 2025 No Primary Care Physician Referring Provider Active Start: January 24, 2025 End: January 24, 2025 Team Status: Inactive Member Role/Relationship Status Dates No Primary Care Physician Primary Care Provider Active Start: February 04, 2025 End: February 04, 2025 No Primary Care Physician Referring Provider Active Start: February 04, 2025 End: February 04, 2025 Dr. Geoff Dallas MD Attending Provider Active S tart: February 04, 2025 End: February 04, 2025 Team Status: Inactive Member Role/Relationship Status Dates No Primary Care Physician Primary Care Provider Active Start: February 12, 2025 End: February 12, 2025 No Primary Care Physician Referring Provider Active Start: February 12, 2025 End: February 12, 2025 CHENG Alvarez Attending Provider Active Start: February 12, 2025 End: February 12, 2025 Team Status: Inactive Member Role/Relationship Status Dates No Primary Care Physician Primary Care Provider Active Start: February 12, 2025 End: February 12, 2025 CHENG Alvarez Attending Provider Active Start: February 12, 2025 End: February 12, 2025 CHENG Alvarez Referring Provider Active Start: February 12, 2025 End: February 12, 2025 Team Status: Inactive Member Role/Relationship Status Dates Dr. Stephen Davis DO Attending Provider Active Start: February 13, 2025 End: February 13, 2025 Dr. Stephen Davis DO Referring Provider Active Start: February 13, 2025 End: February 13, 2025 No Primary Care Physician Primary Care Provider Active Start: February 13, 2025 End: February 13, 2025 Team Status: Inactive Member Role/Relationship Status Dates No Primary Care Physician Primary Care Provider Active Start: February 18, 2025 End: February 18, 2025 No Primary Care Physician Referring Provider Active Start: February 18, 2025 End: February 18, 2025 Dr. Geoff Dallas MD Attending Provider Active S tart: February 18, 2025 End: February 18, 2025 Team Status: Inactive Member Role/Relationship Status Dates Vielka Lane NP, CAMPAIGN COORDINATOR-C Attending Provider Active Start: February 20, 2025 End: February 20, [address] NP CAMPAIGN COORDINATOR-C Referring Provider Active Start: February 20, 2025 End: February 20, 2025 No Primary Care Physician Primary Care Provider Active Start: February 20, 2025 End: February 20, 2025 Team Status: Inactive Member Role/Relationship Status Dates No Primary Care Physician Primary Care Provider Active Start: February 25, 2025 End: February 25, 2025 No Primary Care Physician Referring Provider Active Start: February 25, 2025 End: February 25, 2025 Dr. Geoff Dallas MD Attending Provider Active S tart: February 25, 2025 End: February 25, 2025 Team Status: Inactive Member Role/Relationship Status Dates No Primary Care Physician Primary Care Provider Active Start: February 25, 2025 End: February 25, 2025 Dr. Geoff Dallas MD Attending Provider Active S tart: February 25, 2025 End: February 25, 2025 Dr. Geoff Dallas MD Referring Provider Active S tart: February 25, 2025 End: February 25, 2025 Team Status: Active Member Role/Relationship Status Dates No Primary Care Physician Primary Care Provider Active Start: February 25, 2025 Dr. Trevor Hair MD Attending Provider Active S tart: February 25, 2025 Dr. Geoff Dallas MD Referring Provider Active S tart: February 25, 2025 Team Status: Inactive Member Role/Relationship Status Dates No Primary Care Physician Primary Care Provider Active Start: March 04, 2025 End: March 04, 2025 No Primary Care Physician Referring Provider Active Start: March 04, 2025 End: March 04, 2025 Dr. Geoff Dallas MD Attending Provider Active S tart: March 04, 2025 End: March 04, 2025 Team Status: Inactive Member Role/Relationship Status Dates No Primary Care Physician Primary Care Provider Active Start: March 18, 2025 End: March 18, 2025 No Primary Care Physician Referring Provider Active Start: March 18, 2025 End: March 18, 2025 Dr. Enrique Vallejo MD Attending Provider Active Start: March 18, 2025 End: March 18, 2025 Team Status: Inactive Member Role/Relationship Status Dates Vielka Lane CAMPAIGN COORDINATOR, CAMPAIGN COORDINATOR-C Attending Provider Active Start: March 20, 2025 End: March 20, [address] CAMPAIGN COORDINATOR, CAMPAIGN COORDINATOR-C Referring Provider Active Start: March 20, 2025 End: March 20, 2025 No Primary Care Physician Primary Care Provider Active Start: March 20, 2025 End: March 20, 2025 Team Status: Inactive Member Role/Relationship Status Dates No Primary Care Physician Primary Care Provider Active Start: April 01, 2025 End: April 01, 2025 No Primary Care Physician Referring Provider Active Start: April 01, 2025 End: April 01, 2025 Vielka Ariana CAMPAIGN COORDINATOR, CAMPAIGN COORDINATOR-C Attending Provider Active Start: April 01, 2025 End: April 01, 2025 Team Status: Inactive Member Role/Relationship Status Dates No Primary Care Physician Primary Care Provider Active Start: April 08, 2025 End: April 08, 2025 Vielka Ariana CAMPAIGN COORDINATOR, CAMPAIGN COORDINATOR-C Attending Provider Active Start: April 08, 2025 End: April 08, 2025 Vielka Ariana CAMPAIGN COORDINATOR, CAMPAIGN COORDINATOR-C Referring Provider Active Start: April 08, 2025 End: April 08, 2025 Team Status: Inactive Member Role/Relationship Status Dates No Primary Care Physician Primary Care Provider Active Start: April 15, 2025 End: April 15, 2025 No Primary Care Physician Referring Provider Active Start: April 15, 2025 End: April 15, 2025 Dr. Geoff Dallas MD Attending Provider Active S tart: April 15, 2025 End: April 15, 2025 Team Status: Inactive Member Role/Relationship Status Dates No Primary Care Physician Primary Care Provider Active Start: April 17, 2025 End: April 17, 2025 No Primary Care Physician Referring Provider Active Start: April 17, 2025 End: April 17, 2025 Dr. Chavez Mcfadden MD Attending Provider Active Start: April 17, 2025 End: April 17, 2025 Team Status: Inactive Member Role/Relationship Status Dates No Primary Care Physician Primary Care Provider Active Start: April 22, 2025 End: April 22, 2025 No Primary Care Physician Referring Provider Active Start: April 22, 2025 End: April 22, 2025 Vielka Ariana CAMPAIGN COORDINATOR, CAMPAIGN COORDINATOR-C Attending Provider Active Start: April 22, 2025 End: April 22, 2025 Team Status: Inactive Member Role/Relationship Status Dates No Primary Care Physician Primary Care Provider Active Start: April 22, 2025 End: April 22, 2025 Vielka Ariana CAMPAIGN COORDINATOR, CAMPAIGN COORDINATOR-C Attending Provider Active Start: April 22, 2025 End: April 22, 2025 Vielka Ariana CAMPAIGN COORDINATOR, CAMPAIGN COORDINATOR-C Referring Provider Active Start: April 22, 2025 End: April 22, 2025 Team Status: Active Member Role/Relationship Status Dates Dr. Geoff Dallas MD Attending Provider Active S tart: May 03, 2025 Dr. Geoff Dallas MD Referring Provider Active S tart: May 03, 2025 No Primary Care Physician Primary Care Provider Active Start: May 03, 2025 Team Status: Inactive Member Role/Relationship Status Dates No Primary Care Physician Primary Care Provider Active Start: May 07, 2025 End: May 07, 2025 Dr. Chavez Mcfadden MD Attending Provider Active Start: May 07, 2025 End: May 07, 2025 Dr. Chavez Mcfadden MD Referring Provider Active Start: May 07, 2025 End: May 07, 2025 Team Status: Active Member Role/Relationship Status Dates No Primary Care Physician Primary Care Provider Active Start: May 07, 2025 Dr. Chavez Mcfadden MD Attending Provider Active Start: May 07, 2025 Dr. Chavez Mcfadden MD Referring Provider Active Start: May 07, 2025 Dr. Chavez Mcfadden MD Other Provider Active Start: May 07, 2025 Team Status: Active Member Role/Relationship Status Dates Dr. Ez Lee MD Primary Care Provider Active Start: May 08, 2025 Dr. Geoff Dallas MD Attending Provider Active S tart: May 08, 2025 Dr. Geoff Dallas MD Referring Provider Active S tart: May 08, 2025 Team Status: Inactive Member Role/Relationship Status Dates No Primary Care Physician Primary Care Provider Active Start: May 08, 2025 End: May 08, 2025 No Primary Care Physician Referring Provider Active Start: May 08, 2025 End: May 08, 2025 Dr. Geoff Dallas MD Attending Provider Active S tart: May 08, 2025 End: May 08, 2025 Team Status: Active Member Role/Relationship Status Dates No Primary Care Physician Primary Care Provider Active Start: May 08, 2025 Dr. Geoff Dallas MD Attending Provider Active S tart: May 08, 2025 Dr. Geoff Dallas MD Referring Provider Active S tart: May 08, 2025 Team Status: Inactive Member Role/Relationship Status Dates No Primary Care Physician Primary Care Provider Active Start: January 17, 2025 End: January 17, 2025 Dr. Ye Sparks , DO Attending Provider Activ e Start: January 17, 2025 End: January 17, 2025 Dr. Ye Sparks , DO Emergency Provider Activ e Start: January 17, 2025 End: January 17, 2025 Team Status: Inactive Member Role/Relationship Status Dates Vielka Lane CAMPAIGN COORDINATOR, CAMPAIGN COORDINATOR-C Attending Provider Active Start: January 23, 2025 End: January 23, [address] CAMPAIGN COORDINATOR, CAMPAIGN COORDINATOR-C Referring Provider Active Start: January 23, 2025 End: January 23, 2025 No Primary Care Physician Primary Care Provider Active Start: January 23, 2025 End: January 23, 2025 Team Status: Inactive Member Role/Relationship Status Dates Dr. Geoff Dallas MD Attending Provider Active S tart: January 24, 2025 End: January 24, 2025 No Primary Care Physician Primary Care Provider Active Start: January 24, 2025 End: January 24, 2025 No Primary Care Physician Referring Provider Active Start: January 24, 2025 End: January 24, 2025 Team Status: Inactive Member Role/Relationship Status Dates No Primary Care Physician Primary Care Provider Active Start: February 04, 2025 End: February 04, 2025 No Primary Care Physician Referring Provider Active Start: February 04, 2025 End: February 04, 2025 Dr. Geoff Dallas MD Attending Provider Active S tart: February 04, 2025 End: February 04, 2025 Team Status: Inactive Member Role/Relationship Status Dates No Primary Care Physician Primary Care Provider Active Start: February 12, 2025 End: February 12, 2025 No Primary Care Physician Referring Provider Active Start: February 12, 2025 End: February 12, 2025 CHENG Alvarez Attending Provider Active Start: February 12, 2025 End: February 12, 2025 Team Status: Inactive Member Role/Relationship Status Dates No Primary Care Physician Primary Care Provider Active Start: February 12, 2025 End: February 12, 2025 Dave ANAND PA Attending Provider Active Start: February 12, 2025 End: February 12, 2025 Dave ANAND PA Referring Provider Active Start: February 12, 2025 End: February 12, 2025 Team Status: Inactive Member Role/Relationship Status Dates Dr. Stephen Davis DO Attending Provider Active Start: February 13, 2025 End: February 13, 2025 Dr. Stephen Davis DO Referring Provider Active Start: February 13, 2025 End: February 13, 2025 No Primary Care Physician Primary Care Provider Active Start: February 13, 2025 End: February 13, 2025 Team Status: Inactive Member Role/Relationship Status Dates No Primary Care Physician Primary Care Provider Active Start: February 18, 2025 End: February 18, 2025 No Primary Care Physician Referring Provider Active Start: February 18, 2025 End: February 18, 2025 Dr. Geoff Dallas MD Attending Provider Active S tart: February 18, 2025 End: February 18, 2025 Team Status: Inactive Member Role/Relationship Status Dates Vielka Lane CAMPAIGN COORDINATOR, CAMPAIGN COORDINATOR-C Attending Provider Active Start: February 20, 2025 End: February 20, [address] CAMPAIGN COORDINATOR, CAMPAIGN COORDINATOR-C Referring Provider Active Start: February 20, 2025 End: February 20, 2025 No Primary Care Physician Primary Care Provider Active Start: February 20, 2025 End: February 20, 2025 Team Status: Inactive Member Role/Relationship Status Dates No Primary Care Physician Primary Care Provider Active Start: February 25, 2025 End: February 25, 2025 No Primary Care Physician Referring Provider Active Start: February 25, 2025 End: February 25, 2025 Dr. Geoff Dallas MD Attending Provider Active S tart: February 25, 2025 End: February 25, 2025 Team Status: Inactive Member Role/Relationship Status Dates No Primary Care Physician Primary Care Provider Active Start: February 25, 2025 End: February 25, 2025 Dr. Geoff Dallas MD Attending Provider Active S tart: February 25, 2025 End: February 25, 2025 Dr. Geoff Dallas MD Referring Provider Active S tart: February 25, 2025 End: February 25, 2025 Team Status: Active Member Role/Relationship Status Dates No Primary Care Physician Primary Care Provider Active Start: February 25, 2025 Dr. Trevor Hair MD Attending Provider Active S tart: February 25, 2025 Dr. Geoff Dallas MD Referring Provider Active S tart: February 25, 2025 Team Status: Inactive Member Role/Relationship Status Dates No Primary Care Physician Primary Care Provider Active Start: March 04, 2025 End: March 04, 2025 No Primary Care Physician Referring Provider Active Start: March 04, 2025 End: March 04, 2025 Dr. Geoff Dallas MD Attending Provider Active S tart: March 04, 2025 End: March 04, 2025 Team Status: Inactive Member Role/Relationship Status Dates No Primary Care Physician Primary Care Provider Active Start: March 18, 2025 End: March 18, 2025 No Primary Care Physician Referring Provider Active Start: March 18, 2025 End: March 18, 2025 Dr. Enrique Vallejo MD Attending Provider Active Start: March 18, 2025 End: March 18, 2025 Team Status: Inactive Member Role/Relationship Status Dates Vielka Ariana CAMPAIGN COORDINATOR, CAMPAIGN COORDINATOR-C Attending Provider Active Start: March 20, 2025 End: March 20, 2025 Vielka Ariana CAMPAIGN COORDINATOR, CAMPAIGN COORDINATOR-C Referring Provider Active Start: March 20, 2025 End: March 20, 2025 No Primary Care Physician Primary Care Provider Active Start: March 20, 2025 End: March 20, 2025 Team Status: Inactive Member Role/Relationship Status Dates No Primary Care Physician Primary Care Provider Active Start: April 01, 2025 End: April 01, 2025 No Primary Care Physician Referring Provider Active Start: April 01, 2025 End: April 01, 2025 Vielka Ariana CAMPAIGN COORDINATOR, CAMPAIGN COORDINATOR-C Attending Provider Active Start: April 01, 2025 End: April 01, 2025 Team Status: Inactive Member Role/Relationship Status Dates No Primary Care Physician Primary Care Provider Active Start: April 08, 2025 End: April 08, 2025 Vielka Ariana CAMPAIGN COORDINATOR, CAMPAIGN COORDINATOR-C Attending Provider Active Start: April 08, 2025 End: April 08, 2025 Vielka Ariana CAMPAIGN COORDINATOR, CAMPAIGN COORDINATOR-C Referring Provider Active Start: April 08, 2025 End: April 08, 2025 Team Status: Inactive Member Role/Relationship Status Dates No Primary Care Physician Primary Care Provider Active Start: April 15, 2025 End: April 15, 2025 No Primary Care Physician Referring Provider Active Start: April 15, 2025 End: April 15, 2025 Dr. Geoff Dallas MD Attending Provider Active S tart: April 15, 2025 End: April 15, 2025 Team Status: Inactive Member Role/Relationship Status Dates No Primary Care Physician Primary Care Provider Active Start: April 17, 2025 End: April 17, 2025 No Primary Care Physician Referring Provider Active Start: April 17, 2025 End: April 17, 2025 Dr. Chavez Mcfadden MD Attending Provider Active Start: April 17, 2025 End: April 17, 2025 Team Status: Inactive Member Role/Relationship Status Dates No Primary Care Physician Primary Care Provider Active Start: April 22, 2025 End: April 22, 2025 No Primary Care Physician Referring Provider Active Start: April 22, 2025 End: April 22, 2025 Vielka Ariana CAMPAIGN COORDINATOR, CAMPAIGN COORDINATOR-C Attending Provider Active Start: April 22, 2025 End: April 22, 2025 Team Status: Inactive Member Role/Relationship Status Dates No Primary Care Physician Primary Care Provider Active Start: April 22, 2025 End: April 22, 2025 Vielka Arinaa CAMPAIGN COORDINATOR, CAMPAIGN COORDINATOR-C Attending Provider Active Start: April 22, 2025 End: April 22, 2025 Vielka Ariana CAMPAIGN COORDINATOR, CAMPAIGN COORDINATOR-C Referring Provider Active Start: April 22, 2025 End: April 22, 2025 Team Status: Active Member Role/Relationship Status Dates Dr. Geoff Dallas MD Attending Provider Active S tart: May 03, 2025 Dr. Geoff Dallas MD Referring Provider Active S tart: May 03, 2025 No Primary Care Physician Primary Care Provider Active Start: May 03, 2025 Team Status: Inactive Member Role/Relationship Status Dates No Primary Care Physician Primary Care Provider Active Start: May 07, 2025 End: May 07, 2025 Dr. Chavez Mcfadden MD Attending Provider Active Start: May 07, 2025 End: May 07, 2025 Dr. Chavez Mcfadden MD Referring Provider Active Start: May 07, 2025 End: May 07, 2025 Team Status: Active Member Role/Relationship Status Dates No Primary Care Physician Primary Care Provider Active Start: May 07, 2025 Dr. Chavez Mcfadden MD Attending Provider Active Start: May 07, 2025 Dr. Chavez Mcfadden MD Referring Provider Active Start: May 07, 2025 Dr. Chavez Mcfadden MD Other Provider Active Start: May 07, 2025 Team Status: Active Member Role/Relationship Status Dates Dr. Ez Lee MD Primary Care Provider Active Start: May 08, 2025 Dr. Geoff Dallas MD Attending Provider Active S tart: May 08, 2025 Dr. Geoff Dallas MD Referring Provider Active S tart: May 08, 2025 Team Status: Inactive Member Role/Relationship Status Dates No Primary Care Physician Primary Care Provider Active Start: May 08, 2025 End: May 08, 2025 No Primary Care Physician Referring Provider Active Start: May 08, 2025 End: May 08, 2025 Dr. Geoff Dallas MD Attending Provider Active S tart: May 08, 2025 End: May 08, 2025 Team Status: Inactive Member Role/Relationship Status Dates No Primary Care Physician Primary Care Provider Active Start: May 08, 2025 End: May 08, 2025 Dr. Geoff Dallas MD Attending Provider Active S tart: May 08, 2025 End: May 08, 2025 Dr. Geoff Dallas MD Referring Provider Active S tart: May 08, 2025 End: May 08, 2025 Team Status: Active Member Role/Relationship Status Dates No Primary Care Physician Primary Care Provider Active Start: May 08, 2025 Dr. Trevor Hair MD Attending Provider Active S tart: May 08, 2025 Team Status: Inactive Member Role/Relationship Status Dates Vielka Lane CAMPAIGN COORDINATOR, CAMPAIGN COORDINATOR-C Attending Provider Active Start: January 23, 2025 End: January 23, 2025 Vielka Ariana CAMPAIGN COORDINATOR, CAMPAIGN COORDINATOR-C Referring Provider Active Start: January 23, 2025 End: January 23, 2025 No Primary Care Physician Primary Care Provider Active Start: January 23, 2025 End: January 23, 2025 Team Status: Inactive Member Role/Relationship Status Dates Dr. Geoff Dallas MD Attending Provider Active S tart: January 24, 2025 End: January 24, 2025 No Primary Care Physician Primary Care Provider Active Start: January 24, 2025 End: January 24, 2025 No Primary Care Physician Referring Provider Active Start: January 24, 2025 End: January 24, 2025 Team Status: Inactive Member Role/Relationship Status Dates No Primary Care Physician Primary Care Provider Active Start: February 04, 2025 End: February 04, 2025 No Primary Care Physician Referring Provider Active Start: February 04, 2025 End: February 04, 2025 Dr. Geoff Dallas MD Attending Provider Active S tart: February 04, 2025 End: February 04, 2025 Team Status: Inactive Member Role/Relationship Status Dates No Primary Care Physician Primary Care Provider Active Start: February 12, 2025 End: February 12, 2025 No Primary Care Physician Referring Provider Active Start: February 12, 2025 End: February 12, 2025 Dave ANAND PA Attending Provider Active Start: February 12, 2025 End: February 12, 2025 Team Status: Inactive Member Role/Relationship Status Dates No Primary Care Physician Primary Care Provider Active Start: February 12, 2025 End: February 12, 2025 Dave ANAND PA Attending Provider Active Start: February 12, 2025 End: February 12, 2025 Dave ANAND PA Referring Provider Active Start: February 12, 2025 End: February 12, 2025 Team Status: Inactive Member Role/Relationship Status Dates Dr. Stephen Davis DO Attending Provider Active Start: February 13, 2025 End: February 13, 2025 Dr. Stephen Davis DO Referring Provider Active Start: February 13, 2025 End: February 13, 2025 No Primary Care Physician Primary Care Provider Active Start: February 13, 2025 End: February 13, 2025 Team Status: Inactive Member Role/Relationship Status Dates No Primary Care Physician Primary Care Provider Active Start: February 18, 2025 End: February 18, 2025 No Primary Care Physician Referring Provider Active Start: February 18, 2025 End: February 18, 2025 Dr. Geoff Dallas MD Attending Provider Active S tart: February 18, 2025 End: February 18, 2025 Team Status: Inactive Member Role/Relationship Status Dates Vielka Lane CAMPAIGN COORDINATOR, CAMPAIGN COORDINATOR-C Attending Provider Active Start: February 20, 2025 End: February 20, 2025 Vielka Ariana CAMPAIGN COORDINATOR, CAMPAIGN COORDINATOR-C Referring Provider Active Start: February 20, 2025 End: February 20, 2025 No Primary Care Physician Primary Care Provider Active Start: February 20, 2025 End: February 20, 2025 Team Status: Inactive Member Role/Relationship Status Dates No Primary Care Physician Primary Care Provider Active Start: February 25, 2025 End: February 25, 2025 No Primary Care Physician Referring Provider Active Start: February 25, 2025 End: February 25, 2025 Dr. Geoff Dallas MD Attending Provider Active S tart: February 25, 2025 End: February 25, 2025 Team Status: Inactive Member Role/Relationship Status Dates No Primary Care Physician Primary Care Provider Active Start: February 25, 2025 End: February 25, 2025 Dr. Geoff Dallas MD Attending Provider Active S tart: February 25, 2025 End: February 25, 2025 Dr. Geoff Dallas MD Referring Provider Active S tart: February 25, 2025 End: February 25, 2025 Team Status: Active Member Role/Relationship Status Dates No Primary Care Physician Primary Care Provider Active Start: February 25, 2025 Dr. Trevor Hair MD Attending Provider Active S tart: February 25, 2025 Dr. Geoff Dallas MD Referring Provider Active S tart: February 25, 2025 Team Status: Inactive Member Role/Relationship Status Dates No Primary Care Physician Primary Care Provider Active Start: March 04, 2025 End: March 04, 2025 No Primary Care Physician Referring Provider Active Start: March 04, 2025 End: March 04, 2025 Dr. Geoff Dallas MD Attending Provider Active S tart: March 04, 2025 End: March 04, 2025 Team Status: Inactive Member Role/Relationship Status Dates No Primary Care Physician Primary Care Provider Active Start: March 18, 2025 End: March 18, 2025 No Primary Care Physician Referring Provider Active Start: March 18, 2025 End: March 18, 2025 Dr. Enrique Vallejo MD Attending Provider Active Start: March 18, 2025 End: March 18, 2025 Team Status: Inactive Member Role/Relationship Status Dates Vielkac[address]en Lane CAMPAIGN COORDINATOR, CAMPAIGN COORDINATOR-C Attending Provider Active Start: March 20, 2025 End: March 20, 2025 Vielka Ariana CAMPAIGN COORDINATOR, CAMPAIGN COORDINATOR-C Referring Provider Active Start: March 20, 2025 End: March 20, 2025 No Primary Care Physician Primary Care Provider Active Start: March 20, 2025 End: March 20, 2025 Team Status: Inactive Member Role/Relationship Status Dates No Primary Care Physician Primary Care Provider Active Start: April 01, 2025 End: April 01, 2025 No Primary Care Physician Referring Provider Active Start: April 01, 2025 End: April 01, 2025 Vielka Ariana CAMPAIGN COORDINATOR, CAMPAIGN COORDINATOR-C Attending Provider Active Start: April 01, 2025 End: April 01, 2025 Team Status: Inactive Member Role/Relationship Status Dates No Primary Care Physician Primary Care Provider Active Start: April 08, 2025 End: April 08, 2025 Vielka Ariana CAMPAIGN COORDINATOR, CAMPAIGN COORDINATOR-C Attending Provider Active Start: April 08, 2025 End: April 08, 2025 Vielka Ariana CAMPAIGN COORDINATOR, CAMPAIGN COORDINATOR-C Referring Provider Active Start: April 08, 2025 End: April 08, 2025 Team Status: Inactive Member Role/Relationship Status Dates No Primary Care Physician Primary Care Provider Active Start: April 15, 2025 End: April 15, 2025 No Primary Care Physician Referring Provider Active Start: April 15, 2025 End: April 15, 2025 Dr. Geoff Dallas MD Attending Provider Active S tart: April 15, 2025 End: April 15, 2025 Team Status: Inactive Member Role/Relationship Status Dates No Primary Care Physician Primary Care Provider Active Start: April 17, 2025 End: April 17, 2025 No Primary Care Physician Referring Provider Active Start: April 17, 2025 End: April 17, 2025 Dr. Chavez Mcfadden MD Attending Provider Active Start: April 17, 2025 End: April 17, 2025 Team Status: Inactive Member Role/Relationship Status Dates No Primary Care Physician Primary Care Provider Active Start: April 22, 2025 End: April 22, 2025 No Primary Care Physician Referring Provider Active Start: April 22, 2025 End: April 22, 2025 Vielka Ariana CAMPAIGN COORDINATOR, CAMPAIGN COORDINATOR-C Attending Provider Active Start: April 22, 2025 End: April 22, 2025 Team Status: Inactive Member Role/Relationship Status Dates No Primary Care Physician Primary Care Provider Active Start: April 22, 2025 End: April 22, 2025 Vielka Ariana CAMPAIGN COORDINATOR, CAMPAIGN COORDINATOR-C Attending Provider Active Start: April 22, 2025 End: April 22, 2025 Vielka Ariana CAMPAIGN COORDINATOR, CAMPAIGN COORDINATOR-C Referring Provider Active Start: April 22, 2025 End: April 22, 2025 Team Status: Active Member Role/Relationship Status Dates Dr. Geoff Dallas MD Attending Provider Active S tart: May 03, 2025 Dr. Geoff Dallas MD Referring Provider Active S tart: May 03, 2025 No Primary Care Physician Primary Care Provider Active Start: May 03, 2025 Team Status: Inactive Member Role/Relationship Status Dates No Primary Care Physician Primary Care Provider Active Start: May 07, 2025 End: May 07, 2025 Dr. Chavez Mcfadden MD Attending Provider Active Start: May 07, 2025 End: May 07, 2025 Dr. Chavez Mcfadden MD Referring Provider Active Start: May 07, 2025 End: May 07, 2025 Team Status: Active Member Role/Relationship Status Dates No Primary Care Physician Primary Care Provider Active Start: May 07, 2025 Dr. Chavez Mcfadden MD Attending Provider Active Start: May 07, 2025 Dr. Chavez Mcfadden MD Referring Provider Active Start: May 07, 2025 Dr. Chavez Mcfadden MD Other Provider Active Start: May 07, 2025 Team Status: Inactive Member Role/Relationship Status Dates No Primary Care Physician Primary Care Provider Active Start: May 08, 2025 End: May 08, 2025 No Primary Care Physician Referring Provider Active Start: May 08, 2025 End: May 08, 2025 Dr. Geoff Dallas MD Attending Provider Active S tart: May 08, 2025 End: May 08, 2025 Team Status: Inactive Member Role/Relationship Status Dates No Primary Care Physician Primary Care Provider Active Start: May 08, 2025 End: May 08, 2025 Dr. Geoff Dallas MD Attending Provider Active S tart: May 08, 2025 End: May 08, 2025 Dr. Geoff Dallas MD Referring Provider Active S tart: May 08, 2025 End: May 08, 2025 Team Status: Active Member Role/Relationship Status Dates No Primary Care Physician Primary Care Provider Active Start: May 08, 2025 Dr. Trevor Hair MD Attending Provider Active S tart: May 08, 2025 Team Status: Active Member Role/Relationship Status Dates Dr. Ez Lee MD Primary Care Provider Active Start: May 22, 2025 Dr. Geoff Dallas MD Attending Provider Active S tart: May 22, 2025 Dr. Geoff Dallas MD Referring Provider Active S tart: May 22, 2025 Team Status: Inactive Member Role/Relationship Status Dates No Primary Care Physician Primary Care Provider Active Start: May 22, 2025 End: May 22, 2025 No Primary Care Physician Referring Provider Active Start: May 22, 2025 End: May 22, 2025 Dr. Geoff Dallas MD Attending Provider Active S tart: May 22, 2025 End: May 22, 2025 Team Status: Inactive Member Role/Relationship Status Dates No Primary Care Physician Primary Care Provider Active Start: February 12, 2025 End: February 12, 2025 No Primary Care Physician Referring Provider Active Start: February 12, 2025 End: February 12, 2025 Dave ANAND PA Attending Provider Active Start: February 12, 2025 End: February 12, 2025 Team Status: Inactive Member Role/Relationship Status Dates No Primary Care Physician Primary Care Provider Active Start: February 12, 2025 End: February 12, 2025 CHENG Alvarez Attending Provider Active Start: February 12, 2025 End: February 12, 2025 Dave ANAND PA Referring Provider Active Start: February 12, 2025 End: February 12, 2025 Team Status: Inactive Member Role/Relationship Status Dates Dr. Stephen Davis DO Attending Provider Active Start: February 13, 2025 End: February 13, 2025 Dr. Stephen Davis DO Referring Provider Active Start: February 13, 2025 End: February 13, 2025 No Primary Care Physician Primary Care Provider Active Start: February 13, 2025 End: February 13, 2025 Team Status: Inactive Member Role/Relationship Status Dates No Primary Care Physician Primary Care Provider Active Start: February 18, 2025 End: February 18, 2025 No Primary Care Physician Referring Provider Active Start: February 18, 2025 End: February 18, 2025 Dr. Geoff Dallas MD Attending Provider Active S tart: February 18, 2025 End: February 18, 2025 Team Status: Inactive Member Role/Relationship Status Dates Vielka Lane CAMPAIGN COORDINATOR, CAMPAIGN COORDINATOR-C Attending Provider Active Start: February 20, 2025 End: February 20, [address] CAMPAIGN COORDINATOR, CAMPAIGN COORDINATOR-C Referring Provider Active Start: February 20, 2025 End: February 20, 2025 No Primary Care Physician Primary Care Provider Active Start: February 20, 2025 End: February 20, 2025 Team Status: Inactive Member Role/Relationship Status Dates No Primary Care Physician Primary Care Provider Active Start: February 25, 2025 End: February 25, 2025 No Primary Care Physician Referring Provider Active Start: February 25, 2025 End: February 25, 2025 Dr. Geoff Dallas MD Attending Provider Active S tart: February 25, 2025 End: February 25, 2025 Team Status: Inactive Member Role/Relationship Status Dates No Primary Care Physician Primary Care Provider Active Start: February 25, 2025 End: February 25, 2025 Dr. Geoff Dallas MD Attending Provider Active S tart: February 25, 2025 End: February 25, 2025 Dr. Geoff Dallas MD Referring Provider Active S tart: February 25, 2025 End: February 25, 2025 Team Status: Active Member Role/Relationship Status Dates No Primary Care Physician Primary Care Provider Active Start: February 25, 2025 Dr. Trevor Hair MD Attending Provider Active S tart: February 25, 2025 Dr. Geoff Dallas MD Referring Provider Active S tart: February 25, 2025 Team Status: Inactive Member Role/Relationship Status Dates No Primary Care Physician Primary Care Provider Active Start: March 04, 2025 End: March 04, 2025 No Primary Care Physician Referring Provider Active Start: March 04, 2025 End: March 04, 2025 Dr. Geoff Dallas MD Attending Provider Active S tart: March 04, 2025 End: March 04, 2025 Team Status: Inactive Member Role/Relationship Status Dates No Primary Care Physician Primary Care Provider Active Start: March 18, 2025 End: March 18, 2025 No Primary Care Physician Referring Provider Active Start: March 18, 2025 End: March 18, 2025 Dr. Enrique Vallejo MD Attending Provider Active Start: March 18, 2025 End: March 18, 2025 Team Status: Inactive Member Role/Relationship Status Dates Vielka Lane CAMPAIGN COORDINATOR, CAMPAIGN COORDINATOR-C Attending Provider Active Start: March 20, 2025 End: March 20, 2025 Vielka Ariana CAMPAIGN COORDINATOR, CAMPAIGN COORDINATOR-C Referring Provider Active Start: March 20, 2025 End: March 20, 2025 No Primary Care Physician Primary Care Provider Active Start: March 20, 2025 End: March 20, 2025 Team Status: Inactive Member Role/Relationship Status Dates No Primary Care Physician Primary Care Provider Active Start: April 01, 2025 End: April 01, 2025 No Primary Care Physician Referring Provider Active Start: April 01, 2025 End: April 01, [address] CAMPAIGN COORDINATOR, CAMPAIGN COORDINATOR-C Attending Provider Active Start: April 01, 2025 End: April 01, 2025 Team Status: Inactive Member Role/Relationship Status Dates No Primary Care Physician Primary Care Provider Active Start: April 08, 2025 End: April 08, 2025 Vielka Ariana CAMPAIGN COORDINATOR, CAMPAIGN COORDINATOR-C Attending Provider Active Start: April 08, 2025 End: April 08, 2025 Vielka Ariana CAMPAIGN COORDINATOR, CAMPAIGN COORDINATOR-C Referring Provider Active Start: April 08, 2025 End: April 08, 2025 Team Status: Inactive Member Role/Relationship Status Dates No Primary Care Physician Primary Care Provider Active Start: April 15, 2025 End: April 15, 2025 No Primary Care Physician Referring Provider Active Start: April 15, 2025 End: April 15, 2025 Dr. Geoff Dallas MD Attending Provider Active S tart: April 15, 2025 End: April 15, 2025 Team Status: Inactive Member Role/Relationship Status Dates No Primary Care Physician Primary Care Provider Active Start: April 17, 2025 End: April 17, 2025 No Primary Care Physician Referring Provider Active Start: April 17, 2025 End: April 17, 2025 Dr. Chavez Mcfadden MD Attending Provider Active Start: April 17, 2025 End: April 17, 2025 Team Status: Inactive Member Role/Relationship Status Dates No Primary Care Physician Primary Care Provider Active Start: April 22, 2025 End: April 22, 2025 No Primary Care Physician Referring Provider Active Start: April 22, 2025 End: April 22, 2025 Vielka Ariana CAMPAIGN COORDINATOR, CAMPAIGN COORDINATOR-C Attending Provider Active Start: April 22, 2025 End: April 22, 2025 Team Status: Inactive Member Role/Relationship Status Dates No Primary Care Physician Primary Care Provider Active Start: April 22, 2025 End: April 22, 2025 Vielka Ariana CAMPAIGN COORDINATOR, CAMPAIGN COORDINATOR-C Attending Provider Active Start: April 22, 2025 End: April 22, 2025 Vielka Ariana CAMPAIGN COORDINATOR, CAMPAIGN COORDINATOR-C Referring Provider Active Start: April 22, 2025 End: April 22, 2025 Team Status: Active Member Role/Relationship Status Dates Dr. Geoff Dallas MD Attending Provider Active S tart: May 03, 2025 Dr. Geoff Dallas MD Referring Provider Active S tart: May 03, 2025 No Primary Care Physician Primary Care Provider Active Start: May 03, 2025 Team Status: Inactive Member Role/Relationship Status Dates No Primary Care Physician Primary Care Provider Active Start: May 07, 2025 End: May 07, 2025 Dr. Chavez Mcfadden MD Attending Provider Active Start: May 07, 2025 End: May 07, 2025 Dr. Chavez Mcfadden MD Referring Provider Active Start: May 07, 2025 End: May 07, 2025 Team Status: Active Member Role/Relationship Status Dates No Primary Care Physician Primary Care Provider Active Start: May 07, 2025 Dr. Chavez Mcfadden MD Attending Provider Active Start: May 07, 2025 Dr. Chavez Mcfadden MD Referring Provider Active Start: May 07, 2025 Dr. Chavez Mcfadden MD Other Provider Active Start: May 07, 2025 Team Status: Inactive Member Role/Relationship Status Dates No Primary Care Physician Primary Care Provider Active Start: May 08, 2025 End: May 08, 2025 No Primary Care Physician Referring Provider Active Start: May 08, 2025 End: May 08, 2025 Dr. Geoff Dallas MD Attending Provider Active S tart: May 08, 2025 End: May 08, 2025 Team Status: Inactive Member Role/Relationship Status Dates No Primary Care Physician Primary Care Provider Active Start: May 08, 2025 End: May 08, 2025 Dr. Geoff Dallas MD Attending Provider Active S tart: May 08, 2025 End: May 08, 2025 Dr. Geoff Dallas MD Referring Provider Active S tart: May 08, 2025 End: May 08, 2025 Team Status: Active Member Role/Relationship Status Dates No Primary Care Physician Primary Care Provider Active Start: May 08, 2025 Dr. Trevor Hair MD Attending Provider Active S tart: May 08, 2025 Dr. Geoff Dallas MD Referring Provider Active S tart: May 08, 2025 Team Status: Inactive Member Role/Relationship Status Dates No Primary Care Physician Primary Care Provider Active Start: May 22, 2025 End: May 22, 2025 No Primary Care Physician Referring Provider Active Start: May 22, 2025 End: May 22, 2025 Dr. Geoff Dallas MD Attending Provider Active S tart: May 22, 2025 End: May 22, 2025 Team Status: Active Member Role/Relationship Status Dates Dr. Ez Lee MD Primary Care Provider Active Start: June 05, 2025 Dr. Geoff Dallas MD Attending Provider Active S tart: June 05, 2025 Dr. Geoff Dallas MD Referring Provider Active S tart: June 05, 2025 Team Status: Inactive Member Role/Relationship Status Dates No Primary Care Physician Primary Care Provider Active Start: June 05, 2025 End: June 05, 2025 No Primary Care Physician Referring Provider Active Start: June 05, 2025 End: June 05, 2025 Vielka Ariana CAMPAIGN COORDINATOR, CAMPAIGN COORDINATOR-C Attending Provider Active Start: June 05, 2025 End: June 05, 2025 Team Status: Inactive Member Role/Relationship Status Dates Vielka Ariana CAMPAIGN COORDINATOR, CAMPAIGN COORDINATOR-C Attending Provider Active Start: February 20, 2025 End: February 20, 2025 Vielka Ariana CAMPAIGN COORDINATOR, CAMPAIGN COORDINATOR-C Referring Provider Active Start: February 20, 2025 End: February 20, 2025 No Primary Care Physician Primary Care Provider Active Start: February 20, 2025 End: February 20, 2025 Team Status: Inactive Member Role/Relationship Status Dates No Primary Care Physician Primary Care Provider Active Start: February 25, 2025 End: February 25, 2025 No Primary Care Physician Referring Provider Active Start: February 25, 2025 End: February 25, 2025 Dr. Geoff Dallas MD Attending Provider Active S tart: February 25, 2025 End: February 25, 2025 Team Status: Inactive Member Role/Relationship Status Dates No Primary Care Physician Primary Care Provider Active Start: February 25, 2025 End: February 25, 2025 Dr. Geoff Dallas MD Attending Provider Active S tart: February 25, 2025 End: February 25, 2025 Dr. Geoff Dallas MD Referring Provider Active S tart: February 25, 2025 End: February 25, 2025 Team Status: Active Member Role/Relationship Status Dates No Primary Care Physician Primary Care Provider Active Start: February 25, 2025 Dr. Trevor Hair MD Attending Provider Active S tart: February 25, 2025 Dr. Geoff Dallas MD Referring Provider Active S tart: February 25, 2025 Team Status: Inactive Member Role/Relationship Status Dates No Primary Care Physician Primary Care Provider Active Start: March 04, 2025 End: March 04, 2025 No Primary Care Physician Referring Provider Active Start: March 04, 2025 End: March 04, 2025 Dr. Geoff Dallas MD Attending Provider Active S tart: March 04, 2025 End: March 04, 2025 Team Status: Inactive Member Role/Relationship Status Dates No Primary Care Physician Primary Care Provider Active Start: March 18, 2025 End: March 18, 2025 No Primary Care Physician Referring Provider Active Start: March 18, 2025 End: March 18, 2025 Dr. Enrique Vallejo MD Attending Provider Active Start: March 18, 2025 End: March 18, 2025 Team Status: Inactive Member Role/Relationship Status Dates Vielka Ariana CAMPAIGN COORDINATOR, CAMPAIGN COORDINATOR-C Attending Provider Active Start: March 20, 2025 End: March 20, 2025 Vielka Ariana CAMPAIGN COORDINATOR, CAMPAIGN COORDINATOR-C Referring Provider Active Start: March 20, 2025 End: March 20, 2025 No Primary Care Physician Primary Care Provider Active Start: March 20, 2025 End: March 20, 2025 Team Status: Inactive Member Role/Relationship Status Dates No Primary Care Physician Primary Care Provider Active Start: April 01, 2025 End: April 01, 2025 No Primary Care Physician Referring Provider Active Start: April 01, 2025 End: April 01, 2025 Vielka Ariana CAMPAIGN COORDINATOR, CAMPAIGN COORDINATOR-C Attending Provider Active Start: April 01, 2025 End: April 01, 2025 Team Status: Inactive Member Role/Relationship Status Dates No Primary Care Physician Primary Care Provider Active Start: April 08, 2025 End: April 08, 2025 Vielka Ariana CAMPAIGN COORDINATOR, CAMPAIGN COORDINATOR-C Attending Provider Active Start: April 08, 2025 End: April 08, 2025 Vielka Ariana CAMPAIGN COORDINATOR, CAMPAIGN COORDINATOR-C Referring Provider Active Start: April 08, 2025 End: April 08, 2025 Team Status: Inactive Member Role/Relationship Status Dates No Primary Care Physician Primary Care Provider Active Start: April 15, 2025 End: April 15, 2025 No Primary Care Physician Referring Provider Active Start: April 15, 2025 End: April 15, 2025 Dr. Geoff Dallas MD Attending Provider Active S tart: April 15, 2025 End: April 15, 2025 Team Status: Inactive Member Role/Relationship Status Dates No Primary Care Physician Primary Care Provider Active Start: April 17, 2025 End: April 17, 2025 No Primary Care Physician Referring Provider Active Start: April 17, 2025 End: April 17, 2025 Dr. Chavez Mcfadden MD Attending Provider Active Start: April 17, 2025 End: April 17, 2025 Team Status: Inactive Member Role/Relationship Status Dates No Primary Care Physician Primary Care Provider Active Start: April 22, 2025 End: April 22, 2025 No Primary Care Physician Referring Provider Active Start: April 22, 2025 End: April 22, 2025 Vielka Ariana CAMPAIGN COORDINATOR, CAMPAIGN COORDINATOR-C Attending Provider Active Start: April 22, 2025 End: April 22, 2025 Team Status: Inactive Member Role/Relationship Status Dates No Primary Care Physician Primary Care Provider Active Start: April 22, 2025 End: April 22, 2025 Vielka Ariana CAMPAIGN COORDINATOR, CAMPAIGN COORDINATOR-C Attending Provider Active Start: April 22, 2025 End: April 22, 2025 Vielka Ariana CAMPAIGN COORDINATOR, CAMPAIGN COORDINATOR-C Referring Provider Active Start: April 22, 2025 End: April 22, 2025 Team Status: Active Member Role/Relationship Status Dates Dr. Geoff Dallas MD Attending Provider Active S tart: May 03, 2025 Dr. Geoff Dallas MD Referring Provider Active S tart: May 03, 2025 No Primary Care Physician Primary Care Provider Active Start: May 03, 2025 Team Status: Inactive Member Role/Relationship Status Dates No Primary Care Physician Primary Care Provider Active Start: May 07, 2025 End: May 07, 2025 Dr. Chavez Mcfadden MD Attending Provider Active Start: May 07, 2025 End: May 07, 2025 Dr. Chavez Mcfadden MD Referring Provider Active Start: May 07, 2025 End: May 07, 2025 Team Status: Active Member Role/Relationship Status Dates No Primary Care Physician Primary Care Provider Active Start: May 07, 2025 Dr. Chavez Mcfadden MD Attending Provider Active Start: May 07, 2025 Dr. Chavez Mcfadden MD Referring Provider Active Start: May 07, 2025 Dr. Chavez Mcfadden MD Other Provider Active Start: May 07, 2025 Team Status: Inactive Member Role/Relationship Status Dates No Primary Care Physician Primary Care Provider Active Start: May 08, 2025 End: May 08, 2025 No Primary Care Physician Referring Provider Active Start: May 08, 2025 End: May 08, 2025 Dr. Geoff Dallas MD Attending Provider Active S tart: May 08, 2025 End: May 08, 2025 Team Status: Inactive Member Role/Relationship Status Dates No Primary Care Physician Primary Care Provider Active Start: May 08, 2025 End: May 08, 2025 Dr. Geoff Dallas MD Attending Provider Active S tart: May 08, 2025 End: May 08, 2025 Dr. Geoff Dallas MD Referring Provider Active S tart: May 08, 2025 End: May 08, 2025 Team Status: Active Member Role/Relationship Status Dates No Primary Care Physician Primary Care Provider Active Start: May 08, 2025 Dr. Trevor Hair MD Attending Provider Active S tart: May 08, 2025 Dr. Geoff Dallas MD Referring Provider Active S tart: May 08, 2025 Team Status: Inactive Member Role/Relationship Status Dates No Primary Care Physician Primary Care Provider Active Start: May 22, 2025 End: May 22, 2025 No Primary Care Physician Referring Provider Active Start: May 22, 2025 End: May 22, 2025 Dr. Geoff Dallas MD Attending Provider Active S tart: May 22, 2025 End: May 22, 2025 Team Status: Inactive Member Role/Relationship Status Dates No Primary Care Physician Primary Care Provider Active Start: June 05, 2025 End: June 05, 2025 No Primary Care Physician Referring Provider Active Start: June 05, 2025 End: June 05, [address] CAMPAIGN COORDINATOR, CAMPAIGN COORDINATOR-C Attending Provider Active Start: June 05, 2025 End: June 05, 2025 Team Status: Active Member Role/Relationship Status Dates Dr. Ez Lee MD Primary Care Provider Active Start: June 19, 2025 Dr. Geoff Dallas MD Attending Provider Active S tart: June 19, 2025 Dr. Geoff Dallas MD Referring Provider Active S tart: June 19, 2025 Team Status: Inactive Member Role/Relationship Status Dates No Primary Care Physician Primary Care Provider Active Start: June 19, 2025 End: June 19, 2025 No Primary Care Physician Referring Provider Active Start: June 19, 2025 End: June 19, 2025 Dr. Geoff Dallas MD Attending Provider Active S tart: June 19, 2025 End: June 19, 2025 (unrecognized sect ion and content) No Status Records FoundNo Status Records Found INFORMATION SOURCE (unrecogn ized section and content) DATE CREATED AUTHOR 10/14/2024 [employer] DATE CREATED AUTHOR AUTHOR'S PRISCILA ROSADO 07/08/2025 [employer] [facility] Goals (unrecognized section and content) Goals may be documented in a n alternate sectionGoals may be documented in an alternate sectionGoals may be documented in an alternate sectionGoals may be documented in an alternate sectionGoals may be documented in an alternate sectionGoals may be documented in an alternate sectionGoals may be documented in an alternate sectionGoals may be documented in an alternate sectionGoals may be documented in an alternate sectionGoals may be documented in an alternate sectionGoals may be documented in an alternate sectionGoals may be documented in an alternate sectionGoals may be documented in an alternate sectionGoals may be documented in an alternate sectionGoals may be documented in an alternate sectionGoals may be documented in an alternate section FOR RECORDS PERTAINING TO PATIENTS WHO ARE OR HAVE BEEN ENROLLED IN A CHEMICAL DEPENDENCY/SUBSTANCEABUSE PROGRAM, SOME INFORMATION MAY BE OMITTED. This clinical summary was aggregated from multiple sources. Caution should be exercised in using it in the provision of clinical care. This summary normalizes information from multiple sources, and as a consequence, information in this document may materially change the coding, format and clinical context of patient data. In addition, data may be omitted in some cases. CLINICAL DECISIONS SHOULD BE BASED ON THE PRIMARY CLINICAL RECORDS. [facility] [email or web address] [facility]. provides no warranty or guarantee of the accuracy or completeness of information in this document.
[2025-07-08 05:23] LABS: Pro- Brain NATRIURETIC PEPTIDE 103 pg/mL (<=900)
[2025-07-08 06:13] LABS: Troponin T High Sens 2 HR 69 ng/L (<=22)
[2025-07-08 07:44] LABS: Reflex Lactate? Y
--- NOTE | 2025-07-08 08:19 | PCA ---
PATIENT WAS ACCEPTED AT [facility] @ [address] MANZO. JUST WAITING FOR A NEURO ICU BED.
[2025-07-08 08:29] LABS: Troponin T High Sens 4 HR 90 ng/L (<=22)
[2025-07-08] MEDS: LEVETIRACETAM IV (08:39)
[2025-07-08] MEDS: NORMAL SALINE 0.9% IV (08:39)
--- NOTE | 2025-07-08 10:11 | PCA ---
CALLED [facility] @1010 WAITING ON THE ICU TO MOVE @ PATIENTS OUT TO GET A BED FOR HIM. THEIR ICU IS FULL BUT SAID IT WILL BE TODAY SOON POSSIBLE
[2025-07-08] MEDS: Propofol 10MG/Ml 1,000 MG/100 ML Bottle 15.4 MG CONT INF (12:27)
[2025-07-08 12:36] LABS: Hematocrit 40.1 % (40-54); Hemoglobin 13.5 g/dL (13.0-16.5); Immature Granulocytes Count 0.200 X10^3/uL (0.0-0.0); Mean Corp Hgb Conc 33.7 g/dL (32-36); Mean Corpuscular Volume 102.0 fL (80-94); Mean Platelet Vol. 9.9 fl (6.2-12.0); NRBC Flagged by Analyzer 1.3 % (0-5); Platelet Count 158 K/mm3 (150-450); RBC Distribution Width CV 17.6 % (11.6-14.6); RBC Distribution Width SD 64.4 fl (35.1-43.9); Red Blood Count 3.93 M/mm3 (4.6-6.2); White Blood Count 7.6 K/mm3 (4.4-11.0)
[2025-07-08 12:45] LABS: Base Excess 3 mmol/L (-2 to +2); FI02 70.0; PEEP 12; PO2 89 mmHG (75-100); RR 14; SITE L Brach; SO2 97 % (95-99)
[2025-07-08 13:16] LABS: Magnesium 2.2 mg/dL (1.5-2.2)
[2025-07-08 13:18] LABS: AST(SGOT) 36 U/L (<=37); Alanine Aminotransfer ALT/SGPT 70 U/L (<=46); Albumin, Serum 3.2 g/dL (3.5-5.0); Alkaline Phosphatase 46 U/L (40-129); Anion Gap 13 (5-15); BUN 22 mg/dL (4-19); BUN/Creat Ratio 20.9 RATIO (10-20); Calcium,Total 8.1 mg/dL (7.6-11.0); Carbon Dioxide 22.3 mmol/L (21.0-32.0); Chloride 106 mmol/L (98-108); Estimated Creatinine Clearance 119.40 ml/min (50-250); Globulin 2.0 g/dL (2.2-4.2); Glucose 87 mg/dL (70-99); Potassium 3.7 mmol/L (3.3-5.1)
[2025-07-08 13:19] LABS: Troponin T High Sensitivity 69 ng/L (<=22)
[2025-07-08] MEDS: 0.9% Normal Saline (1000mL) 1,000 ML 100 ML IV (14:03)
--- NOTE | 2025-07-08 15:45 | ED.RN ---
ORAL CARE PROVIDED
--- NOTE | 2025-07-08 15:46 | ED.RN ---
ORAL CARE PROVIDED
--- NOTE | 2025-07-08 15:47 | PCA ---
SET UP WILL CALL @ [phone]. THEY HAVE ALL HIS INFO. SAID TO CALL WHEN HE IS READY TO GO AND THEY WILL COME GET HIM.
--- NOTE | 2025-07-08 15:49 | ED.RN ---
[facility] CALLED WITH AN UPDATE ON PT. TRANSFER STATUS AND PLAN OF CARE.
--- NOTE | 2025-07-08 16:00 | PCA ---
CALLED [facility] AND [facility] AT [phone] AND THEY ARE WAITING FOR BED STILL @ BOTH PLACES.
--- NOTE | 2025-07-08 16:29 | CON.PCM.HO_ITS ---
Assessment & Plan Assessment/Plan (1) Status epilepticus: PLAN: Likely secondary to patient's known history of glioblastoma multiforme. Per Dr. Dallas's note from June 19, 2025, tumor was considered unresectable and is not referred to for chemo and radiation therapy. Patient received 6/2 mg of levetiracetam. Will continue with dosing. Patient on propofol and fentanyl also unable to appreciate any acute seizure activity. Though that does not rule out underlying seizure activity. I would need to make sure the patient is not in active status epilepticus before agreed to except this patient at the hospital. I asked the emergency room physician to consult [facility] teleneurology as well as check an EEG. EEG was performed but the result is still pending at this time. Patient has been accepted over at [facility] and [facility]. This patient needs a 24-hour EEG monitoring at this time. However if we are able to determine the patient is not in status epilepticus then the patient can be admitted to this institution waiting on bed at a tertiary facility. Head CT showed no acute process but did show a right and left frontal lobe mass measuring 6.2 x 4.6 cm. I discussed with Dr. Avila of critical care medicine and his recommendation is that the patient be transferred to a tertiary facility and also recommended reaching out to [facility] neurology. (2) Respiratory acidosis: PLAN: Patient intubated for airway protection secondary to seizures. Resolved with intubation. PLAN: Plan Glioblastoma multiforme continue management per medical and radiation oncology HPI Consult Data Date of Consult: 07/08/25 HPI Narrative Reason for Consultation: Consult requested by Dr. Gonzalez for seizures. HPI Narrative: LAMINE JOSEPH, is a 49 M who presents with seizures. Patient currently intubated and sedated so history obtained through the emergency room physician. This is a 49-year-old male with history of glioblastoma but patient at home had roughly 5 episodes of shaking and was unresponsive between episodes. He has never had seizures previous to this. Patient had ABG that showed respiratory acidosis and patient was intubated. Patient has since been started on profile as well as fentanyl. He received 2 doses of 3000 mg of levetiracetam. [facility] was contacted as patient has had his workup and biopsies performed there. After roughly 8 hours with no imminent bed readily available, the hospital service at [facility] was contacted for admission. [facility] Medical History Weakness of right arm Wears glasses Cancer Walker as ambulation aid Ambulates with cane Non-smoker History of edema DVT (deep venous thrombosis) Frequent falls Pneumonia Headache Long-term current use of steroids Encounter for education Need for pneumocystis prophylaxis Status post stereotactic brain biopsy Glioblastoma multiforme History of traumatic brain injury Home Medications ?Medication ?Instructions ?Recorded ?Last Taken ?Type acetaminophen 325 mg tablet 325 mg PO ONCE PRN pain Unknown History (Tylenol) docusate sodium 100 mg capsule 100 mg PO QDAY PRN cons tipation 10/11/24 Unknown History ondansetron 4 mg disintegrating 4 mg PO Q8H PRN nausea and 10/23/24 Unknown Rx tablet vomiting #30 tabs apixaban 5 mg tablet (Eliquis) 5 mg PO BID #60 tabs 05/03/25 Rx sennosides 8.6 mg-docusate sodium 2 tab-cap (2 x 8.6-5 0 mg) PO QHS 01/29/25 Unknown Rx 50 mg capsule (Senna Plus) 30 days #60 caps dexamethasone 2 mg tablet 2 mg PO QDAY #30 tabs 05/07/25 08:00 Rx lidocaine-prilocaine 2.5 %-2.5 % 1 applic topical ONCE PRN port 04/22/25 Unknown Rx topical cream access 30 days #30 grams sennosides 8.6 mg-docusate sodium 2 tab PO QHS 5 Unknown History 50 mg tablet (Stimulant Laxative Plus) Allergy/AdvReac Type Severity Reaction Status Date / Time No Known Allergies Allergy Verified 07/08/25 03:26 Family History Father Parkinson's disease Social History Smoking Status: Never smoker alcohol intake: current alcohol intake frequency: holidays/special occasions only substance use type: does not use ROS Review of Systems ROS Unobtainable: due to endotracheal tube Physical Exam Const Constitutional Narrative: Intubated sedated. Afebrile. HEENT normocephalic and head/scalp atraumatic HEENT Narrative: ET tube and OG tube in place. Eyes Eyes Narrative: No icterus. Pupils narrow. Resp Resp Narrative: Coarse breath sounds bilaterally. On a ventilator. Cardio regular rate, regular rhythm, S1 normal heart sound and S2 normal heart sound GI normal to inspection, nondistended, normoactive bowel sounds, soft to palpation, non-tender, non-distended and hepatosplenomegaly Extremity normal to inspection, full ROM and no clubbing, cyanosis or edema Neuro Neuro Narrative: Intubated and sedated Lab / Micro Data Attestation: I reviewed the patient's lab results. 07/08/25 12:15 07/08/25 12:15 Labs: Laboratory Results - last 24 hr 07/08/25 03:28: WBC 17.8 H, RBC 4.11 L, Hgb 14.5, Hct 44.3, MCV 107.8 H, MCH 35.3 H, MCHC 32.7, RDW Std Deviation 67.4 H, RDW Coeff of Ed 17.4 H, Plt Count 211, MPV 10.8, Neut % (Auto) Not Reportable, Absolute Neuts (auto) 10.3 H, Absolute Lymphs (auto) 4.27, Total Counted 100, Neutrophils % (Manual) 52, Band Neutrophils % 6 H, Lymphocytes % (Manual) 24, Monocytes % (Manual) 9, M etamyelocytes % 7 H, Myelocytes % 2 H, Nucleated RBCs/100 WBC 3, Diff Path Review February, Platelet Estimate ADEQUATE, Polychromasia 1+, Anisocytosis 2+, Macrocytosis 2+, PT 14.9, INR 1.1, APTT 22.5 L, Sodium 139, Potassium 4.8, Chloride 98, Carbon Dioxide 10.5 L, Anion Gap 30 H, BUN 25 H, Creatinine 1.39 H, Estim Creat Clear Calc 89.33, Est GFR (MDRD) Non-Af 62, BUN/Creatinine Ratio 18.1, Glucose 278 H, Lactic Acid 15.0 H*, Calcium 9.1, Total Bilirubin 0.23, AST 56 H, ALT 90 H, Alkaline Phosphatase 68, Total Creatine Kinase 121, Troponin T High Sens 53 H, NT pro BNP II 103, Total Protein 6.7, Albumin 3.8, Globulin 2.8, Albumin/Globulin Ratio 1.4, Triglycerides 393 H 07/08/25 03:43: Urine Color Yellow, Urine Clarity Clear, Urine pH 5.0, Ur Specific [place] 1.025, Urine Protein 100 H, Urine Glucose (UA) Normal, Urine Ketones Negative, Urine Occult Blood 50 H, Urine Nitrite Negative, Urine Bilirubin Negative, Urine Urobilinogen Normal, Ur Leukocyte Esterase Negative, Urine RBC 0-5 SEEN, Urine WBC 0-5 SEEN, Ur Squamous Epith Cells 5-10 SEEN, Ur Transition Epith Cell 0-5 SEEN, Urine Bacteria 3+, Urine Mucus 0 SEEN 07/08/25 05:27: Troponin T Hi Sens 2 Hr 69 H* 07/08/25 07:55: Lactic Acid Cancelled, Troponin T Hi Sens 4Hr 90 H* 07/08/25 08:07: Lactic Acid 3.7 H* 07/08/25 12:15: WBC 7.6, RBC 3.93 L, Hgb 13.5, Hct 40.1, MCV 102.0 H D, MCH 34.4 H, MCHC 33.7, RDW Std Deviation 64.4 H, RDW Coeff of Ed 17.6 H, Plt Count 158, MPV 9.9, Immature Gran % (Auto) 2.600 H, Neut % (Auto) 79.0 H, Lymph % (Auto) 8.4 L, [place] % (Auto) 9.0, Eos % (Auto) 0.3, Baso % (Auto) 0.7, Absolute Neuts (auto) 6.0, Absolute Lymphs (auto) 0.64 L, Nucleated RBC % 1.3, Sodium 142, Potassium 3.7, Chloride 106, Carbon Dioxide 22.3, Anion Gap 13, BUN 22 H, Creatinine 1.04, Estim Creat Clear Calc 119.40, Est GFR (MDRD) Non-Af 87, B UN/Creatinine Ratio 20.9 H, Glucose 87, Lactic Acid 3.5 H*, Calcium 8.1, Magnesium 2.2, Total Bilirubin 0.35, AST 36, ALT 70 H, Alkaline Phosphatase 46, Troponin T High Sens 69 H* D, Total Protein 5.2 L, Albumin 3.2 L, Globulin 2.0 L , Albumin/Globulin Ratio 1.6 Micro: Microbiology 07/08/25 09:05 Sputum, Induced/Lukens Gram Stain - Final ABG Data ABG results: ABG 07/08/25 07/08/25 07/08/25 03:47 04:59 12:41 Specimen Type ART ART ART Sample Site R Radial R Radial L Brach pH 7.00 L* 7.34 L 7.44 Bicarbonate Actual 15.5 L 22.0 27.2 H Total CO2 17 23 29 Base Excess -16 L -4 L 3 H O2 Saturation 88 L 94 L 97 O2 % 15.0 100.0 70.0 ABG pCO2 62.3 H 40.7 40.3 ABG pO2 83 75 89 Russ Test Positive Positive Respiration Rate 14 14 O2 Delivery Device Bagging Adult Vent Adult Vent Vent Mode Not entered [facility] Tidal Volume 500.0 500.0 POC PEEP 12 12 Crit Call To/Read Back Yes Blood Gas Notified Whom Edward Blood Gas Notified Time 03:48:50 Imaging Radiology Impression Brain CT 07/08/25 03:35 IMPRESSION: No significant change is noted. No CT evidence of an acute brain abnormality. Reading [facility] Chest X-Ray 07/08/25 04:00 IMPRESSION: Right Port-A-Cath is in good position. Enteric feeding tube is in good position. Endotracheal tube is in good position. Increased bilateral basilar atelectatic pulmonary changes. Reading Location: [place] [address] Charges/Coding Visit Charges Office Visits / Consults: [id number] OV L4 New 45min
[2025-07-08 16:30] LABS: Reflex Lactate? Y
[2025-07-08] MEDS: Propofol 10MG/Ml 1,000 MG/100 ML Bottle 11.6 MG CONT INF ×2 (17:10→23:34)
--- NOTE | 2025-07-08 17:20 | ED.RN ---
ORAL CARE PROVIDED
--- NOTE | 2025-07-08 17:38 | PCA ---
CALLED @ 1722 THEY SAID THYE SHOULD HAVE A NEURO ICU BED TODAY
--- NOTE | 2025-07-08 18:35 | PCA ---
[facility] JUST CALLED AND SAID THEY WOULD HAVE A BED BEFORE 1900.
[2025-07-08] MEDS: fentaNYL drip 100 ML 5 MCG CONT INF (19:01)
--- NOTE | 2025-07-08 22:01 | ED.RN ---
pts updated with change in time or arrival for transport
[2025-07-08 23:18] LABS: Reflex Lactate? Y
--- NOTE | 2025-07-08 23:58 | ED.RN ---
oral care provided at this time with green mouth swabs and suction by uzma. pt tolerated well but moves head back and forth while stimulated. resting comfortably after oral care provided. pt continues to be repositioned every 2 hours.
[2025-07-09] VITALS: BP 102/62; PULSE 85; RESP 14; TEMP 37.6; O2SAT 96
[2025-07-09] MEDS: 0.9% Normal Saline (1000mL) 1,000 ML 100 ML IV (00:09)
[2025-07-09 00:15] VITALS: BP 93/59; PULSE 86; RESP 14; TEMP 37.5; O2SAT 95
[2025-07-09 00:30] VITALS: BP 92/60; PULSE 87; RESP 14; TEMP 37.5; O2SAT 95
[2025-07-09 00:42] VITALS: BP 92/60; PULSE 87; RESP 14; TEMP 37.5; O2SAT 95
== END 2025-07-09 01:02 | disposition short-term general hospital (02) ==
PROVIDERS: Student in an Organized Health Care Education/Training Program; Surgery; Emergency Provider Emergency Medicine; PCP Internal Medicine Medical Oncology; Visit Provider Emergency Medicine
DX: G40.901 Epilepsy, unspecified, not intractable, with status epilepticus (principal); C71.1 Malignant neoplasm of frontal lobe; E87.29 Other acidosis; R03.0 Elevated blood-pressure reading, without diagnosis of hypertension; R60.0 Localized edema; Z79.01 Long term (current) use of anticoagulants; Z86.718 Personal history of other venous thrombosis and embolism
CPT/HCPCS: 31500; 31720; 36600; 70450; 71045; 80053; 81001; 82550; 82803; 83605; 83735; 83880; 84478; 84484; 85025; 85610; 85730; 87070; 87205; 93005; 94002; 95819; 96361; 96365; 96366; 99252; 99285; A4216; G0463

== ENCOUNTER → 2025-07-15 | Outpatient (CLI) | payer OTHER, SELFPAY ==
--- NOTE | 2025-07-15 11:09 | MRI_ITS ---
PROCEDURE: BRAIN W/WO CONTRAST 07/15/2025 REASON FOR EXAM: GBM; ASSESS RESPONSE TO TREATMENT TECHNIQUE: Procedure Code: MRIBRWW Modality: MR Procedure: BRAIN W/WO CONTRAST Multiplanar and multisequence images were obtained. CONTRAST: Clariscan VOLUME: 20 mL mL COMPARISON: MRI brain with and without contrast, 04/08/2025. FINDINGS: There is a mass centered in the corpus callosum and extending laterally into both frontal lobes, measuring 4.3 cm in transverse dimension, 3.4 cm in vertical dimension and 3.0 cm in AP dimension (was 5.8 x 4.6 x 4.3 cm). 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 There is diffuse vasogenic edema in both frontal lobes. There are multiple foci of contrast enhancement in both frontal lobes, consistent with tumor foci. There is a large area of tumor in the left thalamus, measuring 2.0 x 1.4 x 0.9 cm (was 3.2 x 1.9 x 1.8 cm). There is vasogenic edema surrounding the left basal ganglia and extending into the surrounding frontal, temporal and parietal lobes. There is minimal shift of the midline to the left. There are normal flow voids demonstrated in the recognized intracranial vessels. The cerebellum and brainstem are unremarkable. The cerebellar pontine angles are normal. The craniovertebral junction is normal. The sella and suprasellar regions are normal. The orbits and retro-orbital regions are unremarkable. The nasal septum is deviated to the left. The paranasal sinuses are clear. The mastoid air cells are clear. There is normal bone marrow signal in the skull base and calvarium. MRI/Brain W/WO Contrast IMPRESSION: 1. The large mass centered in the genu of the corpus callosum and extending in to both frontal lobes demonstrates decrease in size compared with the prior exam. 2. The mass in the left thalamus has demonstrated interval decrease in size. 3. Multiple smaller tumor foci have also demonstrated interval decrease in siz e. 4. Other findings as noted. Reading Location: [place] [address]
[2025-07-15] MEDS: 0.9 % NaCl (Sterile) Posiflush 10 mL IV (12:10)
[2025-07-15] MEDS: 0.9% Saline Lock 10 ML Syringe IV (12:12)
--- OUTSIDE RECORDS SUMMARY | 2025-07-15 14:38 | XMS RPT_ITS ---
Author Name Auto Generated Organization OHIP Care Team Providers Care Pourer Metal Name Role Phone PHYSICIAN, NONE Attending Unavailable PHYSICIAN, NONE Primary Care Unavailable ANDRUF, ADRIANE Referring Unavailable PROVIDER, UNKNOWN Attending Unavailable PROVIDER, UNKNOWN Admitting Unavailable PROVIDER, UNKNOWN Attending Unavailable STACY CROFT Admitting Unavailable SCHWIGER, OMAR Referring Unavailable PROVIDER, UNKNOWN Attending Unavailable STACY CROFT Admitting Unavailable SCHWIGER, OMAR Referring Unavailable ANDRUF, ADRIANE Referring Unavailable GIO ZAMORA Attending Unavailable REQUEST, IP PHYSICAL THERAPY SERVICE Consulting Unavailable ATASSI, LINDA Admitting Unavailable REQUEST, IP OCCUPATIONAL THERAPY SERVICE Consult ing Unavailable ANDRUF, ADRIANE Referring Unavailable PROVIDER, UNKNOWN Attending Unavailable ATASSI, LINDA Admitting Unavailable ANDRUF, ADRIANE Referring Unavailable PROVIDER, UNKNOWN Attending Unavailable ATASSI, LINDA Admitting Unavailable ANDRUF, ADRIANE Referring Unavailable PROVIDER, UNKNOWN Attending Unavailable ATASSI, LINDA Admitting Unavailable PROVIDER, UNKNOWN Attending Unavailable STACY CROFT Admitting Unavailable SCHWIGER, OMAR Referring Unavailable PROVIDER, UNKNOWN Attending Unavailable FAITH DUPREEEN Admitting Unavailable STACY CROFT Admitting Unavailable PROVIDER, UNKNOWN Attending Unavailable SCHWIGER, OMAR Referring Unavailable PROVIDER, UNKNOWN Attending Unavailable STACY CROFT Admitting Unavailable SCHWIGER, OMAR Referring Unavailable PROVIDER, UNKNOWN Attending Unavailable SCHWIGER, OMAR Referring Unavailable JOVANY, STACY Admitting Unavailable SCHWIGER, OMAR Referring Unavailable WILLARD CROFTNAH Admitting Unavailable PROVIDER, UNKNOWN Attending Unavailable SCHWIGER, OMAR Referring Unavailable STACY CROFT Admitting Unavailable PROVIDER, UNKNOWN Attending Unavailable STACY CROFT Admitting Unavailable PROVIDER, UNKNOWN Attending Unavailable SCHWRODOLFO, OMAR Referring Unavailable PROVIDER, UNKNOWN Attending Unavailable PROVIDER, UNKNOWN Admitting Unavailable KOSTAS DUPREE Attending Unavailable PROVIDER, UNKNOWN Admitting Unavailable DUPREE, KOSTAS Attending Unavailable PROVIDER, UNKNOWN Admitting Unavailable REQUEST, IP OCCUPATIONAL THERAPY SERVICE Consult ing Unavailable INO العلي Attending Unavailable STACY CROFT Admitting Unavailable SCHWRODOLFO, OMAR Referring Unavailable REQUEST, IP PHYSICAL THERAPY SERVICE Consulting Unavailable CONSULT, IP PM Consulting Unavailable REQUEST, IP FINANCIAL REPORTING DIRECTOR SERVICE Consulting Unavaila ble DUPREE, KOSTAS Admitting Unavailable DUPREE, KOSTAS Attending Unavailable PROBLEMS No Problem Records Found PROCEDURES No Procedure Records Found RESULTS CONSULTS Observed: 07/12/2025 2:48 PM Status: COMPLETED Source: [facility] SPEECH-LANGUAGE PATHOLOGY [facility] TREATMENT NOTE AC6-204/1 Time In: 1312 Time Out: 1331 Session Duration: 18 minutes Patient is identified by patient/armband stating name and date of . SUBJECTIVE: Patient subjective/goals: Patient is OOB to a chair. is present. Pain: No OBJECTIVE: Language/Cognition: -Discussed results from initial evaluation yesterday. Discussed new vs baseline findings. -Patient able to communicate at the conversational level Speech: -Mildly breathy vocal quality continues but voice is improved from yesterday Swallowing MBS completed 07/11/26 with the following: mild oropharyngeal dysphagia, likely acute/subacute related to glioblastoma, seizures, and recent intubation. Swallow safety is mildly impaired. Swallow safety impairments due to intermittent mistiming of swallow onset, reduced epiglottic inversion, and reduced hyolaryngeal elevation/excursion, which led to intermittent aspiration of thin liquids before and during the swallow. Sensory integrity is impaired given delayed, weak cough response. There was a singular penetration event with nectar thick liquids, which fully cleared during the swallow. No penetration or aspiration was displayed with honey thick liquids or any solid trial. Swallow efficiency is grossly preserved. Temporary modification of liquids appears indicated to reduce but not eliminate risk for dysphagia related complication. Swallow prognosis is good, given adequate participation, acute factors, and mildseverity of deficits. Patient appears to be a good candidate for behavioral swallow rehab. -Discussed results of MBS at length -Discussed recommendations for diet, provided thickener instructions, exercises and recommendations for follow up including speech therapy with eventual repeat MBS/FEES prior to diet upgrade Swallow exercises -Patient able to demonstrate ability to complete effortful swallow and Ivonne. Education: Education provided on the following: -Results of initial assessment -Results of MBS -Recommendations for diet, further therapy, repeat MBS vs FEES -Swallow strategies and swallow exercises -Thickener instructions Patient and his verbalized a good understanding of information ASSESSMENT: Patient is seen for a treatment session with focus on education prior to discharge later this date. Education provided on results of initial assessment. Areas of cognitive-linguistic impairment and dysphonia. Discussed results of MBS in detail, diet recommendations, thickener instructions, recommendations for follow up at home or as an outpatient and to repeat MBS vs FEES following dysphagia rehabilitation. Education provided on swallow exercises and a home exercise program is provided. Patient demonstrates ability to complete exercises. Patient and his verbalize an understanding of information provided and agreement with recommendations. PLAN: Continue current POC Goals: Swallowing Goals The patient will participate in MBS to define current swallow function and to guide an evidenced based treatment plan. (MET, d/c goal) The patient will consume Regular/ IDDSI Level 7 diet and thin liquids utilizing swallowing strategies without clinical indication of cardiopulmonary decline across 3-5 days. (In progress, continue) The patient/caregiver/family will demonstrate adequate return of knowledge of all compensatory strategy/instruction to effectively assist the patient in immediate safety with oral intake and swallowing. (In progress, continue) The patient will complete effortful swallow a minimum of 25x3 sets per session in order to Increase hyolaryngeal elevation and reduce oral residuals. (In progress, continue) The patient will complete the Ivonne maneuver 10x4 sets per session in order to Improved coordination and timing of pharyngeal swallowing events. (In progress, continue) Cognitive-Linguistic Goals The patient will recall 3-4 units of functional information immediately and with a 5 minute delay with use of strategies and minimal cues in 3/5 trials to improve encoding and retrieval of new information. (In progress, continue) The patient will complete low-mid level organization tasks (sequencing, convergent/divergent reasoning tasks) with 80% accuracy given minimal cues to improve mental organization for basic conversation and sequencing of daily tasks. (In progress, continue) The patient will complete further cognition assessment to facilitate development of individualized plan of care. (In progress, continue) Recommendations: Regular solids ((IDDSI level 7/ Regular) and [place] thick liquids (IDDSI level 2) Administer medications crushed in puree base/carrier with pharmacy clearance 1:1 feeding assistance required given cognition and hemiplegia. Adaptive Positioning: Upright sitting to 60 degrees or greater for all PO intake Compensatory Strategies: small bites, small sips, slow rate. Control risk factors for aspiration PNA via oral hygiene QID AND increasing physical mobility as tolerated. Consider ENT for laryngeal dysfunciton should dysphonia persist -Speech therapy to follow while in house -Anticipate further skilled speech therapy needs at discharge -If patient to discharge directly to home, recommend the following: -Modified constant supervision -Assist with IADLs (ie: finances, medication management) -Home vs outpatient speech therapy (SP101 Cognition/Communication, Swallowing) Abiola Cuadra M.A., CCC-FINANCIAL REPORTING DIRECTOR, CBIS Speech-Language Pathologist Secure Chat Preferred ([phone] M,T, Th, F) Office [phone] PROGRESS NOTES - NOTEWRITER Observed: 1:52 PM Status: COMPLETED Source: [facility] TI[facility] NOTE Per interdisciplinary rounds, Pt nearing DC. Plan for DC NG tube. SW met with Pt and at bedside. Prefer return home due to prognosis. Declining AR vs. IPR setting at this time. Priority is for return home with family support as soon as possible. Met with Pt on unit to discuss dispo. Patient open and agreeable to HHC. CM/SW provided Pt the quality and resource use measure data from available post-acute (PAC) providers, that best align with the patient's treatment goals and preferences from the medicare.gov compare site for HC. [place] of Choice was provided to the patient/patient representative phlebotomy services. No preference indicated. Amenable to referrals to agencies that serve [facility]. SW submitted referrals this date. Awaiting responses. Zo??? KINJAL Vincent LSW Inpatient Science Consultant ADDENDUM 4:00pm: [facility] able to accept for HHC. Agency to outreach to pt's Oncologist to obtain HHC orders. Order and DC summary shared this date. Zo??? KINJAL Vincent LSW Inpatient Science Consultant CONSULTS Observed: 07/12/2025 12:12 PM Status: COMPLETED Source: [facility] Physical Therapy Progress No te Patient seen on 6W for 32 minute treatment with OT for safety and mobility progression and patient/family training. Patient requires assist of 2 skilled therapists for mobility. Time in: 1120 time out: 1152 S: "I want to go home." O: Patient supine in bed upon PT arrival. Agreeable to PT. at bedside. Pain: denies Behavior: flat affect, pleasant, alert, cooperative. Follows simple commands. Cognition: oriented x 3 Appearance: corpak (removed by RN at end of session), external male catheter Supine to sit EOB: mod assist of 2 Sitting balance: initially with posterior and right lean. Progressed to close supervision at EOB for static sitting. Sit to stand: min assist from EOB with bed elevated with cues to push up from EOB. Ambulation: patient ambulated 6'x1 with RW with min assist to keep R hand on walker (slipping off multiple times). Decreased speed. Gait unsteady but no overt LOB. Min assist for overall mobility. Fatigues quickly. Decreased R foot clearance. Patient ambulated 3'x1 with quad cane with arched handle with min assist of 1. Decreased speed. Increased L lean Stairs: up and down 1 platform step with quad cane with arched handle with min assist to ascend, mod assist to descend. Unsteady with very forward lean coming down step. Difficulty stepping down with RLE. Chair brought up behind patient. Patient seated in bedside chair at end of session. Call light in reach. Chair alarm on. at bedside. Education: Roles of PT Roles of inpatient rehab vs outpatient therapies vs home therapies Appropriate sit to stand/stand to sit with cane or RW Stair negotiation Need for increased assistance upon initial discharge Use of call light and need for staff assist to mobilize Verbally discussed bumping wheelchair up and down step into home if needed Encouraged patient to remain on first floor initially 07/12/2025 6 Clicks Basic Mobility PT Difficulty turning over in bed 2 Difficulty sitting down and standing up from a chair with arms 2 Difficulty moving from lying on back to sitting on the side of the bed 1 Help from another person moving to and from bed to a chair 3 Help from another person to walk in hospital room 3 Help from another person climbing 3-5 steps with a railing 1 PT 6 Clicks Score 12 6 Click Score Guidelines: 1 - Total = Requires total assistance, or cannot do at all. 2 - A lot = Requires a lot of help (maximum to moderate assistance) Can use assistive devices. 3 - A little = Requires a little help (supervision, minimal assistance) Can use assistive devices. 4 - None = Does not require any help and does the activity independently. Can use assistive devices. A: patient with improved overall mobility this date but remains deconditioned and demonstrates impaired overall balance and mobility. R weakness remains worse than baseline. Patient would still benefit from further therapies in an inpatient rehab setting however patient and are not receptive and would prefer to discharge home this date. is able to provide 24 hour assistance and patient has all necessary DME (except BSC which was ordered by OT this date). Would recommend home PT follow up. Goals (to be achieved by discharge from acute care): Patient will follow single step motor commands 100% of opportunities. met Patient will achieve acceptable level of pain control to allow participation in therapy. met Patient will increase bed mobility to log roll with moderate assistance. Patient will maintain upright dynamic sitting balance on EOB x10 minutes with close supervision. Patient will perform transfer bed to/from chair with rolling walker with minimal assistance. Patient will ambulate 15'x1 with quad cane vs RW with min assistance. Patient will increase ROM/Strength/Endurance/Balance to allow for above goals. Patient/Family independent with exercise program/precautions. P: will continue to follow pt while in house. Sandra Varghese, PT, MPT, CSRS CONSULTS Observed: 07/12/2025 12:00 PM Status: COMPLETED Source: [facility] OCCUPATIONAL THERAPY SARAH S SUMMARY Patient seen from 1120 to 1152 on unit for 32 minute treatment. Co tx with PT for safe progressive mobility secondary to medical/physical complexity of patient. SUBJECTIVE: Patient Subjective/Goals "Im a little weaker than before." OBJECTIVE: Pain: No pain reported or noted Pain Relief Interventions Implemented: None required; No pain at this time. Appearance/Behavior: Patient inclined in bed with Corpak, PIV, and external male catheter/cooperative and pleasant. Cognition: Impaired, min cues for problem solving and Mod cues for hand placement and safety during transfers. A AND O x 3 and follows commands. UE Status: LUE WFL, RUE ROM 1/4 MMT 2-/5 proximally 2+/5 distally. Self Care: Assistance Level NA Dep Max Mod Min CG CS DS MN I Set-Up Cues Comment Feeding x Modified diet and assistance opening packages and containers Grooming/ Hygiene x Assistance opening packages and containers Bathing: Upper Body x Assistance reaching LUE and additional thoroughness Bathing: Lower Body x Max A Dressing: Upper Body x Assistance threading RUE and donning around abdomen Dressing: Lower Body x Max A Toileting x Max A Toilet Transfers x Min A stand pivot with jimmy walker Bed Transfer x Min A stand pivot with jimmy walker Bed Mobility x2 Mod x 2 supine to EOB Endurance for Self Care: Impaired Patient/Family Education: Instructed patient in roles of therapy. Pt educated on transfer training including technique, hand placement, and fall prevention. Pt educated on importance of call light use for staff assist during transfers/mobility to prevent falls and promote safety. Pt educated on benefits of OOB activity and encouraged to remain seated in chair for at least 1 hr. DME: With Patients permission ordered bed side commode via [employer]. If any questions contact [facility] DME Provider at [phone]. 07/12/2025 6 Clicks Daily Activity OT Help from another person Eating meals 3 Help from another person taking care of personal grooming 3 Help from another person bathing 2 Help from another person putting on and taking off regular upper body clothing 2 Help from another person putting on and taking off regular lower body clothing 2 Help from another person toileting 2 OT 6 Clicks Score 14 6 Click Score Guidelines: 1 - Unable = Total/Dependent Assist 2 - A lot = Max/Moderate Assist 3 - A little = Minimum/Contact Guard Assist/Supervision 4 - Non = Modified [place]/Independent ASSESSMENT: ASSESSMENT: Family and patient electing to discharge home. Recommend home OT services. Provided family training this date and also ordered bed side commode. Will continue to follow while I hospital. Goals (to be achieved by discharge from acute care): ongoing unless specified Patient will feed self with Minimal assistance Patient will perform grooming with Minimal assistance Patient will dress upper body with Minimal assistance Patient will dress lower body with Minimal assistance Patient will perform bed mobility with Minimal assistance Patient will perform bathing with Minimal assistance Patient will perform toileting with Minimal assistance Patient will perform bed transfers with Minimal assistance MET upgrade to CGA Patient will perform commode transfers with Minimal assistance MET upgrade to CGA Patient will follow 2 step directions with minimal cues Patient will attend to 10 minute functional tasks with minimal cues PLAN: Continue with Plan as per Initial Evaluation. NAT Dexter/Yogesh NA = Not Assessed, I = Independent, MN = Modified Independent, Sup = Supervised, Set up = Physical Assistance for Set-up Only, Min = Minimal Assistance, Mod = Moderate Assistance, Max = Max assistance; Dep = Dependent; AROM = Active Range of Motion;PROM=Passive Range of Motion; MMT = Manual Muscle Test; Shld= Shoulder; Add = Adduction; Abd = Abduction DISCHARGE SUMMARY Observed: 07/12/2025 11:45 AM Status: COMPLETED [facility] [address] [id number] Anurag Joseph Date of : 1975 49 year old male Attending Ino العلي MD Date of Admission 07/09/2025 Date of Discharge 07/12/2025 Final Diagnosis: Seizure (HCC) Hospital Problems as of 07/12/2025 * (Principal) Seizure ([facility]) Discharge Procedure Orders NEUROLOGY SERVICE REQUEST - Seizures, Epilepsy Referral Priority: Routine Referral Type: Service Level Authorization Referral Location: [facility] Number of Visits Requested: 3 Expiration Date: 07/12/26 NEUROSURGERY SERVICE REQUEST Referral Priority: Routine Referral Type: Service Level Authorization Referral Location: [facility] Referred to Provider: KOSTAS DUPREE Number of Visits Requested: 3 Expiration Date: 07/12/26 Future Appointments Date Time Provider Department Center 11/04/2025 3:00 PM Erica Robbins MD [facility] Condition at Discharge improved Symptoms to look out for after discharge: Dizziness, Fever, Headache and Unable to keep down fluids Activity no strenuous activity and no heavy lifting Diet other (see comments) (general regular diet with nectar thick liquids) Disposition home with home care Functional Status ambulatory with assistance For addt'l facility discharge info click 'Facility Discharge' tab. Reason for Hospitalization Seizure Significant Findings 07/10/2025 EE. Rare right frontocentral sharp wave 2. Left temporal slowing 3. No seizures 4. 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 Admitted to [facility] on 07/08 for new onset seizure activity. Noted to have bit his tongue en route to hospital causing profuse bleeding. Intubated for airway protection. Lactate noted to be [address] revealed stable glioblastoma. Patient loaded w/ 3g Keppra and then transferred to [facility] for further evaluation and management. On arrival he was sedated with propofol and fentanyl. He was given keppra 1gm q12. He was placed on vEEG. Extubated on 07/10 and transferred to Stroke Neurology Floor. He remained on his Decadron 2mg daily and his Eliquis 5mg bid. A MRI head w/wo ordered but on 07/12 the family and pt elected to be discharged and have completed as out pt. MRI w/wo planned for 07/15 ordered by his [facility] Oncologist. I did reach out to Dr. Dupree and he would like to see the patient following his MRI. FINANCIAL REPORTING DIRECTOR repeated MBS and passed for regular diet with nectar thick liquids. Corpak was pulled. PT/OT felt he had good support for home care PT/OT and ordered equipment necessary. Medically discharged on 07/12. Exam on day of discharge: Level of consciousness: awake, alert Affect: flat Orientation: oriented x3 Attention: normal Language: hypophonic, some hesitancy but relatively fluid. Comprehension intact Visual quinones: intact Neglect: absent Extinction: absent Cranial Nerves Vision/fundoscopic: n/a Pupils: 3 mm OD, 3 mm OS; reactive to light bilaterally Spontaneous gaze: no deviation Extraocular movements: intact Facial sensation: intact Facial motor function: symmetric Hearing: intact to conversation Palate elevation: symmetric Dysarthria: absent Tongue: midline Shoulder shrug: decreased on R Motor RUE 1/5 RLE 0/5 LUE 4/5 LLE 3/5 Spontaneous abnormal movements: intermittent tremors RUE I provided the patient and/or family/surrogate with the following information: Explanation of the primary diagnosis, and secondary diagnoses where applicable, including test results, Discussion of any new medications and treatments, including expected benefits and potential major side effects, Explanation of previous treatments or medications that are discontinued, Discussion of post-hospital day-to-day care needs, and Follow-up plans, and warning signs that should prompt more urgent follow-up Elvia Garcia APRN-[facility] Neu[facility] PROGRESS NOTES - NOTEWRITER Observed: 07/12/2025 10:22 AM Status: ACTIVE Source: [facility] [place]- On[facility] PROGRESS NOTES Observed: 07/12/2025 5:34 AM Status: COMPLETED Source: [facility] Neurology Progress Note HPI: Anurag Joseph is a 49 year old male w/ PMH IDH 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 Admitted to [facility] on 07/08 for new onset seizure activity. Noted to have bit his tongue en route to hospital causing profuse bleeding. Intubated for airway protection. Lactate noted to be 15 on admission. CTH revealed stable glioblastoma. Patient loaded w/ 3g Keppra and then transferred to [facility] for further evaluation and management. Overnight Events: - MBS on 07/11, ate a full dinner last evening - cleared for PM AND R - cont to report difficulty sleeping despite trazodone 25 Vital sign ranges over the past 24 hours (retrieved 07/09/2025 at 8:51 PM): Tmax (24 hours): 99.1 ???F (37.3 ???C) Pulse Av Min: 78 Max: 91 Systolic (24hrs), Av , Min:96 , Max:115 Diastolic (24hrs), Av, Min:67, Max:82 MAP (mmHg) Av mmHg Min: 76 mmHg Max: 93 mmHg Resp Av.7 Min: 15 Max: 19 SpO2 Av % Min: 99 % Max: 99 % No intake or output data in the 24 hours ending 07/09/25 0256 Neurological Exam: Level of consciousness: awake, alert Affect: flat Orientation: oriented x3 Attention: normal Language: hypophonic, some hesitancy but relatively fluid. Comprehension intact Visual quinones: intact Neglect: absent Extinction: absent Cranial Nerves Vision/fundoscopic: n/a Pupils: 3 mm OD, 3 mm OS; reactive to light bilaterally Spontaneous gaze: no deviation Extraocular movements: intact Facial sensation: intact Facial motor function: symmetric Hearing: intact to conversation Palate elevation: symmetric Dysarthria: absent Tongue: midline Shoulder shrug: decreased on R Motor RUE 1/5 RLE 0/5 LUE 4/5 LLE 3/5 Spontaneous abnormal movements: intermittent tremors RUE; intermittent flapping of rt foot General appearance: appears older than stated age and pale Head: Normocephalic. Neck: supple Eyes : PERRLA and EOM's intact Mucous membranes: membranes pink and moist Chest wall: port RU chest region Lungs: dim bases, mod amount sputum, thick (suctioned) Heart: regular rate and rhythm and no murmurs, clicks, or gallops Abdomen: soft, rounds, distended. HypoBS Extremities: generalized edema to bilateral lower leg Peripheral pulses: Bilateral radial. Dopplers LLE DP Skin: Negative for lesions, rash, and itching. Summary of Imaging AND Other Pertinent Studies: 07/08- OSH Brain/Head w/o contrast - No acute brain abnormality. Unchanged 1cm L frontal pole nodule; 0.8 x 0.8cm L frontal pole nodule; dominant mass extending into the R and L frontal lobes crossing the anterior aspect of the corpus callosum showing nodularity and calcifications measuring 6.2 x 4.2 cm; 2.3 x 1.6cm nodule in the L aspect of the thalamus; 5mm L midline shift 07/10 EE. Rare right frontocentral sharp wave 2. Left temporal slowing 3. No seizures 4. Generalized slowing, compatible w/ sedation Hospital Course: No notes on file A/P: Patient is a 49yo male w/ known history of glioblastoma presenting from OSH w/ new onset seizure activity. Intubated for airway protection en route to OSH. Neuro # Right frontal GBM (glioblastoma multiforme) #Seizures #Rt side hemiparesis - Keppra 1gm BID changed to PO - continue home dexamethasone 2mg daily - Off EEG - Obtain MRI head W/WO - will plan on obtaining as out patient - Seizure precautions - Neuro Checks Q4h - plan PM AND R vs home with home therapies - consider Palliative Care consult - has an appointment with their Oncologist this week Insomnia - does not want meds for homegoing CV #DVT hx #Hypertriglyceridemia - Eliquis 5mg daily - TG 634 on admission (f/u out pt) - Lipid panel 90 Pulm #Acute respiratory failure, resolved -->ext 07/10 - now on RA - 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 GI/Endo/ 07/11 MBS-->cleared for regular diet, nectar thick liquids - likely removed corpak today - On tube feeds via corpak: Impact Peptide 1.5 - POCT ACHS - 40mg Pepcid every daily ppx Renal/Electrolytes - monitor daily labs and replete PRN Heme/ID #IDH wild-type glioblastoma multiforme - obtain MRI WWO - reengage NSGY after MRI - if not done today will probably discharge and have MRI done as out pt #Thrombocytopenia, resolved Monitor daily labs - Plt 181 #Macrocytic Hyperchromic anemia - B12 155 --> replace - Folate 10.3 --> replace L/T: PIV x2, Port, [place], NG PPX: SCDs/on DOAC Code: Full Contact: KARYNA JOSEPH Dispo: Stroke Floor-->PM AND R Incidental Findings: N/A F/u needs: Neurology Stroke, NSGY, PCP I physically saw this high risk patient, reviewed the data, including labs and imaging, discussed the patient with the attending, Dr. Shayna العلي and developed the plan which appears above. Elvia Garcia, TG-EXECUTIVE SOUS CHEF Neurology/NCCU COMPLETE BLOOD COUNT Collected: 025 3:53 AM Status: F Source: THE [facility] SYSTEM TYPE CODE TESTS RESULT OUT OF RANGE REFERENCE UNITS LAB WBC WBC 10.0 4.5-11.5 K/uL LAB RBC RBC 3.84 Low 4.50-5.90 M/uL LAB HGB HGB 13.6 Low 13.9-16.3 g/dL LAB HCT HCT 38.5 Low 41.0-53.0 % LAB MCV MCV 100 80-100 fL LAB MCH MCH 35.5 High 26.0-34.0 pg LAB MCHC MCHC 35.4 32.0-35.9 g/dL LAB PLT PLT 181 150-400 K/uL LAB RDW RDW-CV 17.7 High 11.5-14.5 % LAB MPV MPV 9.0 7.5-11.2 fL Performed By: #### CBC #### [facility] [address] [place] [address], [id number] BASIC METABOLIC PANEL Collected: 2024 3:53 AM Status: F Source: THE [employer] SYSTEM TYPE CODE TESTS RESULT OUT OF RANGE REFERENCE UNITS LAB GLU GLU 81 74-109 mg/dL LAB NA3 NA 141 136-145 mmol/L LAB POT K 4.2 3.5-5.0 mmol/L LAB CO2 CO2 26 21-31 mmol/L LAB CHLOR CL 105 98-107 mmol/L LAB BUN BUN 23 7-25 mg/dL LAB CREAT CREAT 0.83 0.70-1.30 mg/dL LAB CA CA 8.9 8.6-10.3 mg/dL LAB ANION GAP ANION GAP 14 10-20 LAB eGFR ESTIMATED GFR (CKD-EPI) 107 >=60 mL/min/1 .73sqm Result Comment: 2020 CKD EPI Equation using [...] Inclusion of Race in Diagnosing Kidney Disease. [place] Journal of Kidney Diseases 2021;79(2):268- 88.e1. 2. N Engl J Med 1 Vol. 385 Issue 19 Pages 7827-2826 Performed By: #### CH8, MG, PHOS #### [facility] [address] [place] [address], MAGNESIUM Collected: 3:53 AM Status: F Source: THE [facility] SYSTEM TYPE CODE TESTS RESULT OUT OF RANGE REFERENCE UNITS LAB mag MG 2.1 1.9-2.7 mg/dL Performed By: #### CH8, MG, PHOS #### [facility] [address] [place] [address], PHOSPHORUS Collected: 3:53 AM Status: F Source: THE [facility] SYSTEM TYPE CODE TESTS RESULT OUT OF RANGE REFERENCE UNITS LAB PHOS PHOS 4.5 2.5-5.0 mg/dL Performed By: #### CH8, MG, PHOS #### [facility] [address] [place] [address], BASIC METABOLIC PANEL Collected: 2024 3:53 AM Status: F Source: THE [place] [facility] TYPE CODE TESTS RESULT OUT OF RANGE REFERENCE UNITS LAB GLU GLU 82 74-109 mg/dL LAB NA3 NA 141 136-145 mmol/L LAB POT K 4.0 3.5-5.0 mmol/L LAB CO2 CO2 27 21-31 mmol/L LAB CHLOR CL 106 98-107 mmol/L LAB BUN BUN 22 7-25 mg/dL LAB CREAT CREAT 0.87 0.70-1.30 mg/dL LAB CA CA 8.9 8.6-10.3 mg/dL LAB ANION GAP ANION GAP 12 10-20 LAB eGFR ESTIMATED GFR (CKD-EPI) 105 >=60 mL/min/1 .73sqm Result Comment: 2020 CKD EPI Equation using [...] Inclusion of Race in Diagnosing Kidney Disease. [place] Journal of Kidney Diseases 2021;79(2):268- 88.e1. 2. N Engl J Med 1 Vol. 385 Issue 19 Pages 0930-9844 Performed By: #### CH8 #### [facility] [address] [place] [address], [id number] [place] MODIFIED BARIUM SWALLOW Observed: 4:27 PM Status: F Source: THE [facility] EXAMINATION: [place] MODIFIED BAR IUM SWALLOWPRO 07/11/2025 02:30 PM CLINICAL HISTORY: severe dysphagia ASSOCIATED DIAGNOSIS: ORDERING PROVIDER: ELVIA GARCIA TECHNOLOGISTS NOTE: COMPARISON: None FLUOROSCOPIST: HERO MILLER FLUORO TIME: 4.2 Minutes TECHNIQUE: The examination was performed in conjunction with the Dysphagia/Speech Pathology Team. Various consistencies of contrast (thin barium, nectar thickened barium, pureed consistency of barium and barium on a cookie) were administered and deglutition was evaluated in the lateral projection utilizing video fluoroscopy. INTRA-PROCEDURE MEDS: barium sulfate (VARIBAR THIN LIQUID) 40 % suspension 5 oz Route: Oral barium sulfate (VARIBAR NECTAR) 40 % suspension 5 oz 5 oz Route: Oral barium sulfate (VARIBAR THIN HONEY) 40 % suspension 5 oz 5 oz Route: Oral Barium Sulfate (PUDDING) 40 % paste 230 mL 5 mL Route: Oral barium sulfate 700 MG oral tabs 700 mg Route: Oral IMPRESSION: Laryngeal penetration, tracheal aspiration or nasopharyngeal reflux: Mild in-and-out laryngeal penetration with nectar. No tracheal aspiration. Ancillary findings: Delayed transit of 1.3 cm pill which was stuck in the vallecula with regurgitation of the swallowed pill (Series 21, Image 0) . A complete report will also be performed by the Dysphagia/Speech Pathology Team. MACRO: None I have personally reviewed the images and agree with the resident's interpretation. CONSULTS Observed: 07/11/2025 3:03 PM Status: COMPLETED Source: THE [facility] SYSTEM Videofluoroscopy Swallow Brett dy (VFSS) Time of service: [id number] (13 mins) HPI Reason for Admit: 49 year old male w/ PMH IDH 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 Admitted to [facility] on 07/08 for new onset seizure activity. Noted to have bit his tongue en route to hospital causing profuse bleeding. Intubated for airway protection. Lactate noted to be 15 on admission. CTH revealed stable glioblastoma. Patient loaded w/ 3g Keppra and then transferred to [facility] for further evaluation and management. Past Medical History: PMH IDH wild-type glioblastoma multiforme involving R/L frontal lobes c/b rt sided hemiparesis (s/p radiation and chemo), DVT (01/10/25; on eliquis) Pertinent imagin/22- OSH Brain/Head w/o contrast - No acute brain abnormality. Unchanged 1cm L frontal pole nodule; 0.8 x 0.8cm L frontal pole nodule; dominant mass extending into the R and L frontal lobes crossing the anterior aspect of the corpus callosum showing nodularity and calcifications measuring 6.2 x 4.2 cm; 2.3 x 1.6cm nodule in the L aspect of the thalamus; 5mm L midline shift CXR 07/10/25 IMPRESSION: 1. The visualized feeding tube appears to be in good position. 2. There is stable moderate to marked patchy and confluent bilateral perihilar, bilateral midlung and bibasilar atelectasis and/or pneumonia that is greater on the left. 3. Small bilateral pleural effusions cannot be excluded. 4. The right Port-A-Cath is stable and in good position. 5. There is stable osteopenia and degenerative bony change throughout the study. 6. The remainder of the chest is unchanged and grossly normal. MBS History: Patient has not participated in previous instrumental study. Current diet: NPO with non oral nutrition/hydration via established corpak PMHx Medical History[1] Surgical History[2] S Patient referred for VFSS in order to further assess oropharyngeal swallow physiology. Pain Status: The patient denies pain at this time. Cognition: The patient is alert. Respiratory Support: The patient is on room air. Phonation: Low intensity, breathy vocal quality. Dentition: natural, in good repair. O Videofluoroscopic Swallow Study was conducted in the lateral projections by Speech-Language Pathologist Fabiana Martino, MS-CCC/FINANCIAL REPORTING DIRECTOR, in collaboration with Radiology Department, to evaluate oropharyngeal swallow function. Refer to Radiologist report for any additional findings. Anatomic view under fluoroscopy Structural Variations: None Post-Surgical Changes: N/A Lines, Tubes, and Collars: Corpak. Foreign Bodies: N/A P.O. barium contrast trials Varibar thin liquid, Varibar Crumpton, Varibar Honey Varibar Pudding (Barium Sulfate oral paste, 40% w/v), solid coated in Varibar pudding, 1.3 cm barium tablet with nectar thick barium wash. Oral phase findings Lip closure No labial escape Bolus preparation Timely and efficient chewing and mashing Tongue control Cohesive bolus between tongue and palatal seal Bolus transport Brisk tongue motion Oral residue Trace reside lining the oral structures Pharyngeal phase findings Initiation of swallow Bolus head at posterior laryngeal surface of epiglottis, occurred intermittently. BOT retraction Trace column of contrast or air between tongue base and posterior pharyngeal wall Velar elevation No bolus between soft palate and pharyngeal wall Laryngeal elevation Partial superior movement of thyroid cartilage/partial approximation of arytenoids to epiglottic petiole Anterior hyoid excursion Partial anterior movement Epiglottic movement Partial inversion Laryngeal vestibule closure Complete; no air/contrast in laryngeal vestibule Pharyngeal stripping wave Present and Complete Pharyngeal contraction Study not completed in A AND P position PES opening Complete distension and complete duration; no obstruction of flow Pharyngeal residue Collection of residue within or on the pharyngeal structure. Mild in pyriform and vallecula. Increasing with viscosity. Esophageal findings Esophageal clearance Not evaluated 8-point Penetration-Aspiration Scale (PAS) Mode: Most commonly occurring PAS score Max: Most severe PAS Score Thin liquid or IDDSI Level 0 Thin liquid Modes of Administration: 10ml cup rim with 3s oral hold, cup rim, straw, and consecutive sips Max: (7) Material enters the airway, passes below the vocal folds, and is not ejected from the trachea despite effort. Intermittent small volume tracheal aspiration. Weak, delayed cough response. Crumpton Thick Liquid/ IDDSI 2 Mildly-thick liquid Modes of Administration: cup rim and consecutive sips Max: (4) Material enters the airway, contacts the vocal folds, and is ejected from the airway. Occurred x1 before the swallow with small volume. Otherwise, PAS (1) Material does not enter the airway Honey Thick Liquid/ IDDSI Level 3 Moderately-thick liquid Modes of Administration: cup rim Max: (1) Material does not enter the airway Barium Tablet with nectar barium wash (1) Material does not enter the airway Pureed Solids/ IDDSI 4 Pureed (1) Material does not enter the airway Regular Solids/ IDDSI 7 Regular (1) Material does not enter the airway Compensatory Swallow Strategies *Attempted small sip strategy and bolus hold- did not follow direction despite cues. Bolus Modifications: Bolus volume. Bolus delivery. Dysphagia Outcome and Severity Scale (VIVIANE) LEVEL 5 Mild dysphagia, Distant supervision, may need 1 diet consistency restricted. A The patient presents with mild oropharyngeal dysphagia, likely acute/subacute related to glioblastoma, seizures, and recent intubation. Swallow safety is mildly impaired. Swallow safety impairments due to intermittent mistiming of swallow onset, reduced epiglottic inversion, and reduced hyolaryngeal elevation/excursion, which led to intermittent aspiration of thin liquids before and during the swallow. Sensory integrity is impaired given delayed, weak cough response. There was a singular penetration event with nectar thick liquids, which fully cleared during the swallow. No penetration or aspiration was displayed with honey thick liquids or any solid trial. Swallow efficiency is grossly preserved. Temporary modification of liquids appears indicated to reduce but not eliminate risk for dysphagia related complication. Swallow prognosis is good, given adequate participation, acute factors, and mild severity of deficits. Patient appears to be a good candidate for behavioral swallow rehab. P Diet recommendation Regular solids ((IDDSI level 7/ Regular) and Crumpton thick liquids (IDDSI level 2) Administer medications crushed in puree base/carrier with pharmacy clearance 1:1 feeding assistance required given cognition and hemiplegia. Risk management Adaptive Positioning: Upright sitting to 60 degrees or greater for all PO intake Compensatory Strategies: small bites, small sips, slow rate. Control risk factors for aspiration PNA via oral hygiene QID AND increasing physical mobility as tolerated. Specialist referrals Consider ENT for laryngeal dysfunciton should dysphonia persist x next 1-2 days. Therapy Trial of exercise-based swallow rehabilitation in inpatient setting. Goals The patient will consume Regular/ IDDSI Level 7 diet and thin liquids utilizing swallowing strategies without clinical indication of cardiopulmonary decline across 3-5 days. The patient/caregiver/family will demonstrate adequate return of knowledge of all compensatory strategy/instruction to effectively assist the patient in immediate safety with oral intake and swallowing. The patient will complete effortful swallow a minimum of 25x3 sets per session in order to Increase hyolaryngeal elevation and reduce oral residuals. The patient will complete the Ivonne maneuver 10x4 sets per session in order to Improved coordination and timing of pharyngeal swallowing events. Follow-up MBS Dependent upon clinical progression with dysphagia intervention, at the discretion of the treating FINANCIAL REPORTING DIRECTOR. Consider FEES in future. Results discussed with the resident physician post study. The video document of today's study is confidentially stored in PACS. Fabiana Martino M.S. CCC-FINANCIAL REPORTING DIRECTOR Inpatient Speech-Language Pathologist (Tuesday- Tuesday Float, contact primary FINANCIAL REPORTING DIRECTOR if unable to reach) [1] No past medical history on file. [2] Past Surgical History: Procedure Laterality Date INTRAOCULAR LENS IMPLANT, SECONDARY W/ ANTERIOR VITRECTOMY Right 09/21/2024 Procedure: RIGHT FRONTAL STEREOTACTIC BRAIN BIOPSY; Surgeon: Kostas Dupree MD; Location: PERIOPERATIVE SERVICES; Service: Neurosurgery PROGRESS NOTES - NOTEWRITER Observed: 1:35 PM Status: COMPLETED Source: THE [facility] SYSTEM TIFFANI NOTE Per interdisciplinary rounds, Pt nearing medical readiness for DC. Nutritional plan ongoing. SW aware of rec's for Acute Rehab. Met with Pt on unit to discuss dispo. Patient open and agreeable to AR placement. SW provided Pt the quality and resource use measure data from available post-acute (PAC) providers, that best align with the patient's treatment goals and preferences from the medicare.gov compare site for AR. [place] of Choice was provided to the patient/patient representative phlebotomy services. PM AND R consult placed- pt insurance OON with [facility]. SW to follow up for patient choice. Pt will require an authorization. Zo??? KINJAL Vincent, GUERA Inpatient Science Consultant ADDENDUM 5:45p: SW met with pt and at bedside to follow-up on AR list. reporting that pt has ongoing L-side weakness related to tumor. Inquiring re: specific reasoning for current recommendation as she feels that Pt is functioning near baseline. SW to discuss further with PT/OT on 07/12 and will follow-up with pt/family. Zo??? KINJAL Vincent, GUERA Inpatient Science Consultant PROGRESS NOTES Observed: 07/11/2025 11:55 AM Status: COMPLETED Source: THE [facility] PM AND R consult received, c ase is currently being reviewed by Dr. Wood. Unfortunately, we will be unable to accept as pt is OON with no OON benefits for MHRH through her [place] [employer] H[employer] plan.Thank you for the consult. Please reach out with any questions. Nikita Mendoza, PT, DPT PM AND R Clinical Rehab All Source Collection Manager [phone] CONSULTS Observed: 07/11/2025 11:46 AM Status: COMPLETED Source: THE [facility] PM AND R consult received, c ase is currently being reviewed by Dr. Wood. Unfortunately, we will be unable to accept as pt is OON with no OON benefits for MHRH through her [place] [employer] H[employer] plan.Thank you for the consult. Please reach out with any questions. Nikita Mendoza, PT, DPT PM AND R Clinical Rehab All Source Collection Manager [phone] CONSULTS Observed: 07/11/2025 11:12 AM Status: COMPLETED Source: THE [facility] Speech-Language Pathology Ev aluation and Clinical Swallow Evaluation AC Referral received, chart reviewed, and history noted. FINANCIAL REPORTING DIRECTOR Visit Information Reason for Consult: Evaluate and treat FINANCIAL REPORTING DIRECTOR - Time In: 1122 FINANCIAL REPORTING DIRECTOR - Time Out: 1145 FINANCIAL REPORTING DIRECTOR - Total Time (minutes): 23 Patient Identification: Patient verbalized name and Primary Language: American Risks/Benefits of Therapy Reviewed: Patient informed of risks and benefits of treatment Chart Reviewed: Yes Family/Caregiver Present: No Date of Admission: 07/09/2025 Date of Onset: 07/09/2025 Reason for Admission: 49 year old male w/ PMH IDH 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 Admitted to [facility] on 07/08 for new onset seizure activity. Noted to have bit his tongue en route to hospital causing profuse bleeding. Intubated for airway protection. Lactate noted to be 15 on admission. CTH revealed stable glioblastoma. Patient loaded w/ 3g Keppra and then transferred to [facility] for further evaluation and management. Past Medical History: PMH IDH wild-type glioblastoma multiforme involving R/L frontal lobes c/b rt sided hemiparesis (s/p radiation and chemo), DVT (01/10/25; on eliquis) Surgeries/Procedures: Review of patient's past surgical history indicates: INTRAOCULAR LENS IMPLANT, SECONDARY W/ ANTERIO* (09/21/2024) Procedure: RIGHT FRONTAL STEREOTACTIC BRAIN BIOPSY; Surgeon: Kostas Dupree MD; Location: PERIOPERATIVE SERVICES; Service: Neurosurgery Precautions: Full Code Clinical Precautions: Aspiration Precautions Imagin/22- OSH Brain/Head w/o contrast - No acute brain abnormality. Unchanged 1cm L frontal pole nodule; 0.8 x 0.8cm L frontal pole nodule; dominant mass extending into the R and L frontal lobes crossing the anterior aspect of the corpus callosum showing nodularity and calcifications measuring 6.2 x 4.2 cm; 2.3 x 1.6cm nodule in the L aspect of the thalamus; 5mm L midline shift 07/10 EE. Rare right frontocentral sharp wave 2. Left temporal slowing 3. No seizures 4. Generalized slowing, compatible w/ sedation 07/10 CXR IMPRESSION: 1. The visualized feeding tube appears to be in good position. 2. There is stable moderate to marked patchy and confluent bilateral perihilar, bilateral midlung and bibasilar atelectasis and/or pneumonia that is greater on the left. 3. Small bilateral pleural effusions cannot be excluded. 4. The right Port-A-Cath is stable and in good position. 5. There is stable osteopenia and degenerative bony change throughout the study. 6. The remainder of the chest is unchanged and grossly normal. Prior Level of Functioning: Per notes, patient lives at home with his . 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 However, since last August, he receives assistance with IADLs from his who owns her own business and per patient is mostly home. He states that if he is not home, his mother will come and stay with him. No history of speech therapy in available medical record. Subjective Patient Appearance: Appearance: Corpak Patient subjective/goals: Patient OOB to chair. Agreeable to session. Pain: No, denies Objective Hearing: Hearing: Hearing appears adequate at conversational level intensity Vision: Vision Assessment: Wears glasses Language: Auditory Expression: Biographical: WFL Sherman: Unrelated to Self: WFL Abstract: WFL Closed Questions: WFL Conversational Questions: WFL One Step Basic Commands: WFL Two Step Basic Commands: WFL 3 Step/Multistep Commands: WFL Verbal Expression: Verbal Output: Fluent, Syntax not impaired Common Pictures: WFL Cognition: Orientation Orientation Level: WFL (oriented to all spheres) Memory Short-Term Memory: Intact in the immediate context for lists, Impaired after delay Attention Arousal/Alertness: Able to maintain alertness Attention: Attends to brief tasks Problem Solving/Reasoning Basic Functional Tasks: Intact ability to formulate solutions to simple problems Organization Organization: Intact for low level categorization Insight Insight: Decreased insight into full extent of deficits Pragmatic Behavior Pragmatics: Appropriate interaction with this clinician Respiratory Status: Baseline Respiratory Status: Room Air Current Oxygen Requirements: Room Air Vitals SpO2: 94 % Respiratory Rate: 16 Speech: Speech Production Speech Production: WFL Fluency: WFL Prosody: WFL Resonance: WFL Vocal Quality: Breathy, Hoarse Vocal Intensity: Mildly decreased Breath Support: Impaired coordination for respiration and phonation Intelligibility at Conversation Level (%): 100 % Oral-Motor Assessment Labial ROM: WFL Lingual Protrusion: WFL/midline Facial Symmetry: WFL Oral Hygiene Oral Care Completed By: Patient Oral Care Completed With Use Of: Suction toothbrush kit Oral Mucosa: Guys, Moist Secretion Management: Frequent suctionining with [place] Dentition: Natural, in good repair Swallowing: Diet Swallowing Status Patient's Current Diet: NPO with non-oral means of nutrition/hydration/medications Baseline/Prior to Arrival Diet: Regular solids/IDDSI 7 regular, Thin liquids/IDDSI 0 thin liquids Mal[place] Swallow Protocol State: Alert, is maintained across session Malone Exclusion Criteria Is the patient unable to remain alert for testing?: No - Pass Is the patient unable to have thin liquids due to preexisting dysphagia?: No - Pass Does the patient have HOB restrictions <30 degrees?: No - Pass Does the patient have a tracheostomy tube present?: No - Pass Is the patient NPO for a medical/surgical reason?: No - Pass Malone Brief Cognitive Screen (Can the patient answer the questions AND follow the commands below?) What is your name?: Correct Where are you right now?: Correct What year is it?: Correct Malone Oral Mechanism Assessment Tongue ROM: WFL facial symmetry: WFL smile: WFL Pucker: WFL Lip Closure: WFL [place] Swallow 3-ounce water swallow challenge Positioning: Chair Mode of administration: Straw Is consecutive drinking of 3 oz of thin water achieved?: No Coughing/throat clear present?: Yes Result of [place] Swallow Protocol: Fail [place] Swallow Protocol Results Results: Fail: Inability to drink the entire 3 ounces (90cc)in sequential swallows due to stopping/starting or patient exhibits over signs of aspiration (I.e. coughing or choking, either during or immediately after completion) Consistencies Assessed Thin Presentation: Self-presented, Via straw Oral: Intact bilabial seal. No anterior spillage. Functional oral transit. Pharyngeal: Overt signs and symptoms of airway invasion Puree Presentation: Self-presented, Via spoon, Patient takes large bites/sips Oral: Intact bilabial seal. No anterior spillage. Functional oral transit. No residuals post swallow. Pharyngeal: No overt signs/symptoms of airway invasion Solid Solids Trialed: Nicolás sullivan Presentation: Self-presented Oral: Intact bilabial seal. No anterior spillage. Complete bolus breakdown. Functional oral transit. No residuals post swallow. Pharyngeal: No overt signs/symptoms of airway invasion RISK ASSESSMENT Dysphagia Risk Factors: Predisposing: Right frontal GBM Clinical signs of possible chronic dysphagia: None identified Precipitating: Seizures Intubation Factors contributing to aspiration related pulmonary complications: Given factors below, patient risk for aspiration related pulmonary complication is currently perceived to be moderate to high. Positive Impact Negative impact Pulmonary Clearance Medical Conditions (COPD, CHF, asthma) x Acute respiratory failure Reduced function (reduced mobility/increased dependence for care) Pulmonary health (h/o smoking, need for supplemental O2, need for inhaled medications) x Albuterol, Atrovent Immune Response Nutritional Status x per RD note Medical co-morbidities x chemo Presence of current infectious process x Bacteriological Contents Dependencies for oral care x Dental care/repair x Oral hygiene x Xerostomia x Diabetes x Acid Suppression therapy (PPI, H2 Blockers) x Pepcid Test Administered: Verbal Test of Practical Judgement VPJ (Out of 20): 15 Assessment Impression: Diagnosis: cognitive-communicative impairments, dysphonia, suspected oropharyngeal dysphagia. Impression: A cognitive-linguistic evaluation is completed using a combination of formal and informal measures. The patient scores not impaired on the Verbal Test of Practical Judgment. The patient presents with impairments in memory and organization. Suspect higher level impairments. Voice is hoarse and breathy in the setting of recent intubation. Although cognitive-linguistic impairments are noted, it is unclear what patient's baseline is given history of GBM, chemo and radiation; however, he may benefit from skilled speech therapy to define baseline, address any areas of new deficit and to assist with safe discharge planning. Dysphonia is new per patient report. Recommending monitoring patient's voice and consider ENT consult if no improvement. A clinical swallow evaluation is completed at bedside. The patient is unable to pass the [facility] Swallow Protocol yielding a higher suspicion of aspiration and presents with overt clinical s/s of airway compromise with thin liquids. These findings paired with limited/reduced mobility, medical co-morbidities, impaired cognition, and imaging of chest warrant further evaluation of swallow function through use of instrumental assessment tools; therefore, MBS is recommended in order to further assess oropharyngeal swallow function, r/o aspiration, and determine LRD. Education: Results and Recommendations Discussed/Shared With: Patient, RN, Medical team Knowledge Regarding Understanding: Patient, With fair return of knowledge regarding education provided Plan Treatment/Interventions: Treatment/Interventions: Cognitive linguistic exercises, Dysphagia therapy, Compensatory strategies, Patient/family education Plan: Patient may benefit from further Speech Therapy services Frequency: 1-3 times per week as appropriate Duration: By discharge from acute hospitalization Short Term Goals: Swallowing Goals The patient will participate in MBS to define current swallow function and to guide an evidenced based treatment plan. Cognitive-Linguistic Goals The patient will recall 3-4 units of functional information immediately and with a 5 minute delay with use of strategies and minimal cues in 3/5 trials to improve encoding and retrieval of new information. The patient will complete low-mid level organization tasks (sequencing, convergent/divergent reasoning tasks) with 80% accuracy given minimal cues to improve mental organization for basic conversation and sequencing of daily tasks. The patient will complete further cognition assessment to facilitate development of individualized plan of care. Prognosis: Prognosis: (+) Cooperation, (-) Presence of co-morbidities Recommendations: -Recommend a MBS to further assess oropharyngeal swallow physiology and to determine LRD -Recommend NPO until MBS is completed -HOB at least 30 degrees -Oral care with use of suction toothbrush kit TID while NPO -Speech therapy to follow while in house -Anticipate further skilled speech therapy needs at discharge -Recommend PM AND R consult -If patient to discharge directly to home, recommend the following: -Modified constant supervision -Assist with IADLs (ie: finances, medication management) -Home vs outpatient speech therapy (SP101 Cognition/Communication, Swallowing) Abiola Cuadra M.A., CCC-FINANCIAL REPORTING DIRECTOR, CBIS Speech-Language Pathologist Secure Chat Preferred ([phone] M,T, Th, F) Office [id number] CONSULTS Observed: 07/11/2025 9:45 AM Status: COMPLETED Source: [facility] Physical Therapy Progress No te Patient seen on 6W for 29 minute treatment with OT for safety and mobility progression. Patient requires assist of 2 skilled therapists for mobility. Time in: 907 Time out: 936 Extubated 07/10/25 and transferred to 6W A. S: "I sat outside a lot." Re: regarding masterson lines on legs. O: Patient supine in bed upon PT arrival. Agreeable to PT. Pain: denies Behavior: flat affect, pleasant, cooperative, soft spoken Cognition: oriented x 3 Appearance: corpak; external male catheter. Patient soiled in urine due to external cath malfunction. Rolling to right: mod assist of 1 Rolling to left: max assist of 1. Dependent for hygiene at bed level (urine). Gown changed in supine with assist. See OT note for details. Supine to sit EOB: max assist of 2. Sitting balance: initially max assist with posterior lean but progressed to CG assistance at EOB. Denies dizziness. Requires assist to scoot to EOB. Uses LUE to help support self. Sit to stand: stood 2x with max assist of 2 with blocking of R knee. Flexed posture. Improved some with cues and with second sit to stand. Transfer: bed to chair with max assist of 2. Patient requires intermittent blocking of R knee during transfer. Patient with difficulty advance LLE but is able to move slightly with assist to weight shift and verbal cues. Unable to step with RLE but able to slide it back using trunk. Flexed at trunk. Patient seated in bedside chair at end of session. Call light in reach. Chair alarm on. BLE elevated. RUE supported. Education: Roles of PT Importance of mobility Use of call light and need for assistance to mobilize 07/11/2025 6 Clicks Basic Mobility PT Difficulty turning over in bed 2 Difficulty sitting down and standing up from a chair with arms 1 Difficulty moving from lying on back to sitting on the side of the bed 1 Help from another person moving to and from bed to a chair 1 Help from another person to walk in hospital room 1 Help from another person climbing 3-5 steps with a railing 1 PT 6 Clicks Score 7 6 Click Score Guidelines: 1 - Total = Requires total assistance, or cannot do at all. 2 - A lot = Requires a lot of help (maximum to moderate assistance) Can use assistive devices. 3 - A little = Requires a little help (supervision, minimal assistance) Can use assistive devices. 4 - None = Does not require any help and does the activity independently. Can use assistive devices. A: patient extubated and alert. Patient responsive and mobilizing with assistance. Patient is deconditioned and demonstrates worsened R hemiplegia, impaired balance and impaired mobility. Patient is below functional baseline. Would recommend further inpt therapies in the appropriate rehab setting. Recommend a PM AND R consult. Anticipate that patient will be able to tolerate 3 hours of therapy daily. Goals (to be achieved by discharge from acute care): Patient will follow single step motor commands 100% of opportunities. Patient will achieve acceptable level of pain control to allow participation in therapy. Patient will increase bed mobility to log roll with moderate assistance. Patient will maintain upright dynamic sitting balance on EOB x10 minutes with close supervision. Patient will perform transfer bed to/from chair with rolling walker with minimal assistance. Patient will increase ROM/Strength/Endurance/Balance to allow for above goals. Patient/Family independent with exercise program/precautions. P: will continue to follow. Sandra Varghese, PT, MPT, CSRS CONSULTS Observed: 07/11/2025 9:40 AM Status: COMPLETED Source: [facility] OCCUPATIONAL THERAPY JOCELYNNCLARA S SUMMARY Patient seen from 9:08 to 9:37 on 6W unit for 29 minute treatment. Co-treat completed with PT in order to safely progress in mobility and transfers 2/2 medical complexity. Patient reports have 24/7 assistance from , independent in toileting, some assistance for dressing and showering and use of RW at baseline. 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 OBJECTIVE: Pain: no pain noted or verbally reported Pain Relief Interventions Implemented: None required; No pain at this time Appearance/Behavior: supine in bed, heplock IV, donning glasses for session, external catheter, gowned, soiled with urine 2/2 malfunction of external, flat affect however agreeable to tasks out of bed Cognition: A AND O x3 Following 1 step direction appropriately UE Status: LUE AROM WFL RUE impaired-- 1/4 trace flexion/extension, trace in wrist flexion/extension, trace pronation, no noted supination, trace flexion no noted extension, compensating with shoulder hike to complete flexion RUE PROM WFL Self Care: Assistance Level NA Dep Max Mod Min CG CS DS MN I Set-Up Cues Comment Feeding x NPO Corpak in place Grooming/ Hygiene Bathing: Upper Body Bathing: Lower Body Dressing: Upper Body x Interchanging gown bed level Cues for engagement for LUE to assist in RUE Dressing: Lower Body x x Donning socks bed level Toileting x x External catheter + Soiled with urine 2/2 malfunction of catheter Sarah hygiene completed at bed level Toilet Transfers Bed Transfer x2 Sit to stand from edge of bed x2 Initial knee block to the R to complete STS however then able to increase ability to WB through RLE with standing without buckle Arm and arm assistance Stand pivot transfer to bedside chair Bed Mobility x2 Supine to sitting edge of bed with use of tap sheet Modified pinwheel method Patient advancing with use of BLE Patient left sitting up in bedside chair, tap sheet in place, chair alarm in place, BLE elevated, call light in reach and all needs met. Endurance for Self Care: Impaired, decreased activity tolerance to overall task completion Patient/Family Education: Instructed Patient in roles of therapy, importance of tasks out of bed and up in chair as well as discharge recommendations. DME: With Patients permission ordered no equipment via [employer] Order. If any questions contact [facility] DME Provider at [phone]. 07/11/2025 6 Clicks Daily Activity OT Help from another person Eating meals 1 Help from another person taking care of personal grooming 2 Help from another person bathing 2 Help from another person putting on and taking off regular upper body clothing 2 Help from another person putting on and taking off regular lower body clothing 1 Help from another person toileting 1 OT 6 Clicks Score 9 6 Click Score Guidelines: 1 - Unable = Total/Dependent Assist 2 - A lot = Max/Moderate Assist 3 - A little = Minimum/Contact Guard Assist/Supervision 4 - Non = Modified [place]/Independent ASSESSMENT: ASSESSMENT: Recommend further therapy services in an Inpatient Rehabilitation setting once medically cleared. Recommend PM AND R consult. Anticipate patient will be able to tolerate 3 hours treatment/5 days week. Will continue to follow patient while in hospital as appropriate. Goals (to be achieved by discharge from acute care): all goals ongoing Patient will feed self with Minimal assistance Patient will perform grooming with Minimal assistance Patient will dress upper body with Minimal assistance Patient will dress lower body with Minimal assistance Patient will perform bed mobility with Minimal assistance Patient will perform bathing with Minimal assistance Patient will perform toileting with Minimal assistance Patient will perform bed transfers with Minimal assistance Patient will perform commode transfers with Minimal assistance Patient will follow 2 step directions with minimal cues Patient will attend to 10 minute functional tasks with minimal cues Revised Cigar Making Machine Supervisor Goals: none at this time PLAN: Continue with Plan as per Initial Evaluation. 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 Admitted to [facility] on 07/08 for new onset seizure activity. Noted to have bit his tongue en route to hospital causing profuse bleeding. Intubated for airway protection. Lactate noted to be 15 on admission. CTH revealed stable glioblastoma. Patient loaded w/ 3g Keppra and then transferred to [facility] for further evaluation and management. Overnight Events: Copious sputum (mod thick)-->utilizing suction device Vital sign ranges over the past 24 hours (retrieved 07/09/2025 at 8:51 PM): Tmax (24 hours): 99.1 ???F (37.3 ???C) Pulse Av Min: 78 Max: 91 Systolic (24hrs), Av , Min:96 , Max:115 Diastolic (24hrs), Av, Min:67, Max:82 MAP (mmHg) Av mmHg Min: 76 mmHg Max: 93 mmHg Resp Av.7 Min: 15 Max: 19 SpO2 Av % Min: 99 % Max: 99 % No intake or output data in the 24 hours ending 07/09/25 0256 Neurological Exam: Sedation: Precedex Level of consciousness: awake to voice Pupils: 3mm brisk, PERRL Vision: L/R blink to threat Spontaneous gaze: Midline Corneal reflex: present Gag reflex: present Cough reflex: present Motor Tone: 1/5 RUE, 0/5 RLE. 4/5 LUE, 3/5 LLE Spontaneous abnormal movements: intermittent flapping of rt foot General: General appearance: appears older than stated age and pale Head: Normocephalic. Neck: supple Eyes : PERRLA and EOM's intact Mucous membranes: membranes pink and moist Chest wall: port RU chest region Lungs: dim bases Heart: regular rate and rhythm and no murmurs, clicks, or gallops Abdomen: soft, rounds, distended. HypoBS Extremities: generalized edema to bilateral lower leg Peripheral pulses: Bilateral radial. Dopplers LLE DP Skin: Negative for lesions, rash, and itching. Summary of Imaging AND Other Pertinent Studies: 07/08- OSH Brain/Head w/o contrast - No acute brain abnormality. Unchanged 1cm L frontal pole nodule; 0.8 x 0.8cm L frontal pole nodule; dominant mass extending into the R and L frontal lobes crossing the anterior aspect of the corpus callosum showing nodularity and calcifications measuring 6.2 x 4.2 cm; 2.3 x 1.6cm nodule in the L aspect of the thalamus; 5mm L midline shift 07/10 EE. Rare right frontocentral sharp wave 2. Left temporal slowing 3. No seizures 4. Generalized slowing, compatible w/ sedation Hospital Course: No notes on file A/P: Patient is a 49yo male w/ known history of glioblastoma presenting from OSH w/ new onset seizure activity. Intubated for airway protection en route to OSH. Neuro # Right frontal GBM (glioblastoma multiforme) #Seizures #Rt side hemiparesis - Keppra 1gm BID - continue home dexamethasone 2mg BID - Continue v EEG ( awaiting final read) - Obtain MRI head W/WO -Seizure precautions - Neuro Checks Q4h - CV #DVT hx #Hypertriglyceridemia -Home eliquis on hold -Lovenox 40mg daily ppx - TG 634 on admission (f/u out pt) - Lipid panel 90 Pulm #Acute respiratory failure, resolved -->ext 07/10 -Intubated for airway protection - now on RA GI/Endo/ -on tube feeds -POCT ACHS - 40mg Pepcid every daily ppx Renal/Electrolytes - monitor daily labs and replete PRN Heme/ID #IDH wild-type glioblastoma multiforme - obtain MRI WWO - reengage NSGY after MRI #Thrombocytopenia Monitor daily labs and bleed precautions - Plt 156 (138) #Macrocytic Hyperchromic anemia -Check B12 155 and folate level 10.3 L/T: JAIMIE, Laisha Jimenez NG PPX: SCDs, LMWH Code: Full Contact: KARYNA JAKE Dispo: Stroke Floor Incidental Findings: N/A F/u needs: Pending w/u I physically saw this high risk patient, reviewed the data, including labs and imaging, discussed the patient with the attending,Dr. Shayna العلي and developed the plan which appears above. Elvia Garcia APRN-[facility] Neurology/NCCU CONSULTS Observed: 07/11/2025 7:56 AM Status: COMPLETED Source: [facility] Physical Medicine and Rehabi litation Consult Patient: Anurag Joseph Age/sex: 49 year old male Referring physician: Ino العلي MD Consulting physician: Dr. Fany Wood Primary care provider: No primary care provider on file. Reason for consult: assess for rehab needs Chief complaint: Seizures and right hemiplegia Assessment Anurag Joseph is a 49 year old male with reduced ADLs and functional mobility due to seizures and right sided hemiplegia in the setting of glioblastoma multiforme involving right and left frontal lobs Impairments: right hemiplegia, dysphagia, dysphonia Precautions: fall, seizure, NPO Barriers: Lives in [facility] Recommendations: - continue current bowel regimen - headaches: encourage patient to try tylenol. If headaches are persistent can try pamelor at bedtime if there are no contraindications - pain is well controlled on current regimen. Using oxycodone appropriately - Spasticity: did have some tone in right elbow flexors, monitor for increasing tone. If develops tone that is causing pain, impeding sleep/function, can consider starting baclofen 5 mg TID Disposition: When medically ready, patient will be appropriate for acute inpatient rehabilitation with expected length of stay of 2-3 weeks and goal mod I level for mobility and mod I for ADLs. Prognosis is excellent. [facility] is not in Network and Insurance does not allow OON. Will try to an in-network AR. Due to the functional impairments and medical complexity, this patient requires provision of rehabilitation services in a setting providing twenty-four hour availability of a physician with special training in the field of rehabilitation. In addition, the patient will require twenty-four hour availability of a registered nurse with training and experience in rehabilitation and skilled services which are diverse and complex requiring a coordinated interdisciplinary approach. The patient's condition requires skilled therapy intervention for at least 3 hours per day, five days a week, with specific therapies provided as indicated. Provision of services in a less intensive environment risks significant complications and a more limited functional outcome. Will continue to review chart daily and see patient periodically during admission as needed. Please contact with any questions. Thank you for allowing us to participate in the care of this patient Fany Wood MD Physical Medicine and Rehabilitation Contact via [employer] Secure Chat -- HPI: Anurag Joseph is a 49 year old male with past medical history significant for IDH wild-type glioblastoma multiforme involving right and left frontal lobes c/b right hemiparesis (s/p radiation and chemo - did not tolerate chemo well), DVT (12/2024; on eliquis) who presented to [facility] on 07/08 for new onset seizure activity (bit tongue). At [facility], patient was intubated for airway protection, loaded with 3 g keppra. CTH revealed stable glioblastoma, lactate was 15. Transferred to [facility] on 07/09/2025 and admitted to [facility]. Hospital course was complicated by respiratory failure needing intubation (extubated 07/10), dysphagia needing tube feeds, hypophonia, hypertriglyceridemia, macrocytic hyperchromic anemia. Today, patient is sitting up in recliner. Reports that Prior functional status: from OT note, confirmed with patient Ambulation with a quad cane with arched handle with mod I, pt's notes he drags R foot, noting baseline R hemiparesis, will at times use RW, uses L hand to place R hand on RW, notes more difficulty getting R hand to release from RW once in place, spasticity? 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 Current Functional Status updated therapies OT 07/11 Self Care: Assistance Level NA Dep Max Mod Min CG CS DS MN I Set-Up Cues Comment Feeding x NPO Corpak in place Grooming/ Hygiene Bathing: Upper Body Bathing: Lower Body Dressing: Upper Body x Interchanging gown bed level Cues for engagement for LUE to assist in RUE Dressing: Lower Body x x Donning socks bed level Toileting x x External catheter + Soiled with urine 2/2 malfunction of catheter Sarah hygiene completed at bed level Toilet Transfers Bed Transfer x2 Sit to stand from edge of bed x2 Initial knee block to the R to complete STS however then able to increase ability to WB through RLE with standing without buckle Arm and arm assistance Stand pivot transfer to bedside chair Bed Mobility x2 Supine to sitting edge of bed with use of tap sheet Modified pinwheel method Patient advancing with use of BLE PT 07/11 Rolling to right: mod assist of 1 Rolling to left: max assist of 1. Dependent for hygiene at bed level (urine). Gown changed in supine with assist. See OT note for details. Supine to sit EOB: max assist of 2. Sitting balance: initially max assist with posterior lean but progressed to CG assistance at EOB. Denies dizziness. Requires assist to scoot to EOB. Uses LUE to help support self. Sit to stand: stood 2x with max assist of 2 with blocking of R knee. Flexed posture. Improved some with cues and with second sit to stand. Transfer: bed to chair with max assist of 2. Patient requires intermittent blocking of R knee during transfer. Patient with difficulty advance LLE but is able to move slightly with assist to weight shift and verbal cues. Unable to step with RLE but able to slide it back using trunk. Flexed at trunk. Patient seated in bedside chair at end of session. Call light in reach. Chair alarm on. BLE elevated. RUE supported. Review Of Systems: 10 point ROS was obtained and negative unless otherwise noted above. Social History: from OT note, confirmed with patient Assistance Available at Home: 09/05 Patient lives in a 2 story home 2 stairs to enter. Full Bathroom on 2nd level. Bedroom on 2nd level. Equipment available at home: lift chair, elevated toilet seat, RW, quad cane with arched handle Does not smoke, drink or use illicit drugs Medical History[1] Surgical History[2] Family History[3] Allergies[4] Scheduled Meds: Famotidine (PF) 20 mg Every 12 hours Apixaban 5 mg 2x Daily Cerovite Jr 1 Tablet Daily polyethylene glycol 17 g Daily senna 10 mL At Bedtime docusate 100 mg 2x Daily vitamin B-12 1,000 mcg Daily dexAMETHasone 2 mg Daily levETIRAcetam orderable 1,000 mg Every 12 hours [Transfer Hold] Famotidine (PF) 20 mg Every 12 hours PRN Meds oxyCODONE 5 mg Q4H PRN ipratropium-albuterol 3 mL PRN acetaminophen 650 mg Q4H PRN ondansetron 4 mg Q6H PRN IV medications Tube feed 55 mL/hr at 07/11/25 0140 Medications Ordered Prior to Encounter[5] Physical Examination BP 133/88 (BP Location: right arm) Pulse 74 Temp 98.4 ???F (36.9 ???C) (Oral) Resp 18 Ht 6' (1.829 m) Wt 278 lb (126.1 kg) SpO2 92% BMI 37.70 kg/m??? General Appearance: comfortable, recumbent in bed Psychiatric: cooperative with exam, flat affect HEENT: NCAT, moist mucus membranes Chest and Lungs: clear to auscultation bilaterally, normal work of breathing Cardiovascular: RRR Abdomen: soft, nondistended, non-tender Extremities: some edema of BLE Neurologic: -Mental Status: alert and oriented to person, place, but not date; follows commands -Language: appropriate content. 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 Spasticity: Modified Jaclyn Scale Muscle MAS Right MAS Left Shoulder adductors 0 Elbow flexors 1 Elbow extensors 0 Wrist flexors 0 Wrist pronators 0 Finger flexors 0 Hip adductors 0 Knee extensors 0 Knee flexors 0 Plantar flexors 0 Ankle inverters 0 0 = No increase in tone 1 = Slight increase in tone (catch and release at end of ROM) 1+ = Slight increase in tone, manifested by a catch, followed by minimal resistance throughout remainder (less than half of ROM) 2 = Marked increase in tone through most of the ROM, but affected part(s) easily moved 3 = Considerable increase in tone; passive movement difficult 4 = Affected part(s) rigid in flexion or extension Pertinent Labs CBC 07/11/2025 07/10/2025 07/09/2025 09/22/2024 09/14/2024 1:06 AM 2:22 AM 3:32 AM 2:24 AM 4:46 AM WBC 10.0 9.7 10.4 16.2 13.3 RBC 3.77 3.62 3.71 4.25 4.74 Hgb 13.1 13.0 13.1 14.0 15.8 Hct 38.1 36.7 37.7 42.0 46.1 MCV 101 101 102 99 97 RDW 17.8 17.4 18.4 14.1 13.9 Plt 156 138 137 218 237 BMP (last 1 year, up to 8 values) 07/11/2025 07/10/2025 07/09/2025 09/22/2024 09/14/2024 1:06 AM 2:22 AM 3:32 AM 2:24 AM 4:46 AM Na 144 143 145 139 138 K 4.1 4.2 4.1 4.7 4.2 Cl 108 107 108 105 105 CO2 28 29 29 25 24 Gap 12 11 12 14 13 Glu 113 141 86 123 182 BUN 21 17 24 27 25 Cr 0.88 1.00 1.21 0.96 1.12 Ca 9.0 8.6 8.5 8.4 9.7 eGFR 105 92 73 97 81 Mg 2.1 2.3 2.3 2.1 -- PO4 3.1 3.4 4.4 -- -- Pertinent Imaging EEG 07/10 IMPRESSION This LTM vEEG (12-26 hours), performed on a patient in the sedated/anesthetized state, was ABNORMAL. The following pertinent findings were noted: 1. Rare right frontocentral sharp wave 2. Left temporal slowing 3. No seizures 4. Generalized slowing, compatible w/ sedation Clinical Correlation: These findings indicate focal cortical dysfunction, excess cortical excitability, and suggest risk for future seizures. Consider correlating with imaging. Focal slowing is a nonspecific finding when a structural lesion is present. In the absence of a structural lesion, differential includes TIA, migraine, neurodegenerative disease and epilepsy. This study captured no events. No epileptiform discharges or electrographic or clinical seizures were captured. CXR 07/10 IMPRESSION: 1. The visualized feeding tube appears to be in good position. 2. There is stable moderate to marked patchy and confluent bilateral perihilar, bilateral midlung and bibasilar atelectasis and/or pneumonia that is greater on the left. 3. Small bilateral pleural effusions cannot be excluded. 4. The right Port-A-Cath is stable and in good position. 5. There is stable osteopenia and degenerative bony change throughout the study. 6. The remainder of the chest is unchanged and grossly normal. KUB 07/10 IMPRESSION: 1. The visualized feeding tube is in good position. 2. There is no evidence of bowel obstruction, constipation, free air or free fluid. 3. There are findings consistent with moderate to marked atelectasis and/or pneumonia within the visualized lung bases and small to moderate bilateral pleural effusions cannot be excluded. 4. There are additional findings as described above. [1] No past medical history on file. [2] Past Surgical History: Procedure Laterality Date INTRAOCULAR LENS IMPLANT, SECONDARY W/ ANTERIOR VITRECTOMY Right 09/21/2024 Procedure: RIGHT FRONTAL STEREOTACTIC BRAIN BIOPSY; Surgeon: Kostas Dupree MD; Location: PERIOPERATIVE SERVICES; Service: Neurosurgery [3] No family history on file. [4] No Known Allergies [5] No current facility-administered medications on file prior to encounter. Current Outpatient Medications on File Prior to Encounter Medication Sig Dispense Refill Eliquis 5 MG tablet Take 5 mg by mouth daily. dexAMETHasone (DECADRON) 2 MG tablet Take 2 mg by mouth daily. ondansetron (ZOFRAN-ODT) 4 MG disintegrating tablet Take 4 mg by mouth every 12 hours as needed for Nausea. docusate sodium (COLACE) 100 MG capsule Take 1 Capsule by mouth 2 times daily as needed for up to 14 days. 28 Capsule 0 pantoprazole (PROTONIX) 40 MG tablet Take 1 Tablet by mouth daily (30 minutes before breakfast). 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 Admitted to [facility] on 07/08 for new onset seizure activity. Noted to have bit his tongue en route to hospital causing profuse bleeding. Intubated for airway protection. Lactate noted to be 15 on admission. CTH revealed stable glioblastoma. Patient loaded w/ 3g Keppra and then transferred to [facility] for further evaluation and management. Overnight Events: Copious sputum (mod thick)-->utilizing suction device C/o insomnia Vital sign ranges over the past 24 hours (retrieved 07/09/2025 at 8:51 PM): Tmax (24 hours): 99.1 ???F (37.3 ???C) Pulse Av Min: 78 Max: 91 Systolic (24hrs), Av , Min:96 , Max:115 Diastolic (24hrs), Av, Min:67, Max:82 MAP (mmHg) Av mmHg Min: 76 mmHg Max: 93 mmHg Resp Av.7 Min: 15 Max: 19 SpO2 Av % Min: 99 % Max: 99 % No intake or output data in the 24 hours ending 07/09/25 0256 Neurological Exam: Level of consciousness: awake to voice Pupils: 3mm brisk, PERRL Vision: L/R blink to threat Spontaneous gaze: Midline Corneal reflex: present Gag reflex: present Cough reflex: present Motor 1/5 RUE, 0/5 RLE. 4/5 LUE, 3/5 LLE Spontaneous abnormal movements: intermittent flapping of rt foot General: General appearance: appears older than stated age and pale Head: Normocephalic. Neck: supple Eyes : PERRLA and EOM's intact Mucous membranes: membranes pink and moist Chest wall: port RU chest region Lungs: dim bases Heart: regular rate and rhythm and no murmurs, clicks, or gallops Abdomen: soft, rounds, distended. HypoBS Extremities: generalized edema to bilateral lower leg Peripheral pulses: Bilateral radial. Dopplers LLE DP Skin: Negative for lesions, rash, and itching. Summary of Imaging AND Other Pertinent Studies: 07/08- OSH Brain/Head w/o contrast - No acute brain abnormality. Unchanged 1cm L frontal pole nodule; 0.8 x 0.8cm L frontal pole nodule; dominant mass extending into the R and L frontal lobes crossing the anterior aspect of the corpus callosum showing nodularity and calcifications measuring 6.2 x 4.2 cm; 2.3 x 1.6cm nodule in the L aspect of the thalamus; 5mm L midline shift 07/10 EE. Rare right frontocentral sharp wave 2. Left temporal slowing 3. No seizures 4. Generalized slowing, compatible w/ sedation Hospital Course: No notes on file A/P: Patient is a 49yo male w/ known history of glioblastoma presenting from OSH w/ new onset seizure activity. Intubated for airway protection en route to OSH. Neuro # Right frontal GBM (glioblastoma multiforme) #Seizures #Rt side hemiparesis - Keppra 1gm BID changed to PO - continue home dexamethasone 2mg daily - Off EEG - Obtain MRI head W/WO - upon review possible GOC dicussion - Seizure precautions - Neuro Checks Q4h - plan PM AND R - consider Palliative Care consult (wait until 's at bedside) Insomnia - will start trazodone 25mg hs tonight, can increase tomorrow if ineffective or add melatonin - CV #DVT hx #Hypertriglyceridemia - Eliquis 5mg daily - TG 634 on admission (f/u out pt) - Lipid panel 90 Pulm #Acute respiratory failure, resolved -->ext 07/10 - now on RA - 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 GI/Endo/ - On tube feeds via corpak: Impact Peptide 1.5 - POCT ACHS - 40mg Pepcid every daily ppx Re-consult FINANCIAL REPORTING DIRECTOR for possible repeat MBS vs PEG placement Renal/Electrolytes - monitor daily labs and replete PRN Heme/ID #IDH wild-type glioblastoma multiforme - obtain MRI WWO - reengage NSGY after MRI #Thrombocytopenia, resolved Monitor daily labs and bleed precautions - Plt 156 (138) #Macrocytic Hyperchromic anemia - B12 155 --> replace - Folate 10.3 --> replace L/T: PIV, Port, Interiano, NG PPX: SCDs/on DOAC Code: Full Contact: KARYNA JOSEPH Dispo: Stroke Floor-->PM AND R Incidental Findings: N/A F/u needs: Neurology Stroke, NSGY, PCP I physically saw this high risk patient, reviewed the data, including labs and imaging, discussed the patient with the attending, Dr. Shayna العلي and developed the plan which appears above. Elvia Garcia, SUPERVISORY TRAINING SPECIALIST-EXECUTIVE SOUS CHEF Neurology/NCCU COMPLETE BLOOD COUNT Collected: 1:06 AM Status: F Source: THE [facility] TYPE CODE TESTS RESULT OUT OF RANGE REFERENCE UNITS LAB WBC WBC 10.0 4.5-11.5 K/uL LAB RBC RBC 3.77 Low 4.50-5.90 M/uL LAB HGB HGB 13.1 Low 13.9-16.3 g/dL LAB HCT HCT 38.1 Low 41.0-53.0 % LAB MCV MCV 101 High 80-100 fL LAB MCH MCH 34.8 High 26.0-34.0 pg LAB MCHC MCHC 34.5 32.0-35.9 g/dL LAB PLT PLT 156 150-400 K/uL LAB RDW RDW-CV 17.8 High 11.5-14.5 % LAB MPV MPV 8.5 7.5-11.2 fL Performed By: #### CBC #### [facility] [address] [place] [address], [id number] BASIC METABOLIC PANEL Collected: 2024 1:06 AM Status: F Source: THE [employer] TYPE CODE TESTS RESULT OUT OF RANGE REFERENCE UNITS LAB GLU GLU 113 High 74-109 mg/dL LAB NA3 NA 144 136-145 mmol/L LAB POT K 4.1 3.5-5.0 mmol/L LAB CO2 CO2 28 21-31 mmol/L LAB CHLOR CL 108 High 98-107 mmol/L LAB BUN BUN 21 7-25 mg/dL LAB CREAT CREAT 0.88 0.70-1.30 mg/dL LAB CA CA 9.0 8.6-10.3 mg/dL LAB ANION GAP ANION GAP 12 10-20 LAB eGFR ESTIMATED GFR (CKD-EPI) 105 >=60 mL/min/1 .73sqm Result Comment: 2020 CKD EPI Equation using Creatinine without Race Comment: Estimated glomerular filtration rate (eGFR) is calculated without a race coefficient. Values should be interpreted in the context of the patient's full clinical presentation. Reference: 1. Harman C, Linda M, Desiree DC, et al.. A Unifying Approach for GFR Estimation: Recommendations of the NKF-ASN Task Force on Reassessing the Inclusion of Race in Diagnosing Kidney Disease. [place] Journal of Kidney Diseases 202;79(2):268- 88.e1. 2. N Engl J Med 1 Vol. 385 Issue 19 Pages 2872-5314 Performed By: #### PHOS, MG, CH8 #### [facility] [address] [place] [address], MAGNESIUM Collected: 1:06 AM Status: F Source: [facility] SYSTEM TYPE CODE TESTS RESULT OUT OF RANGE REFERENCE UNITS LAB mag MG 2.1 1.9-2.7 mg/dL Performed By: #### PHOS, MG, CH8 #### [facility] [address] [place] [address], PHOSPHORUS Collected: 1:06 AM Status: F [facility] TYPE CODE TESTS RESULT OUT OF RANGE REFERENCE UNITS LAB PHOS PHOS 3.1 2.5-5.0 mg/dL Performed By: #### PHOS, MG, CH8 #### [facility] [address] [place] [address], TRANSFER NOTE Observed: 07/10/2025 8:24 PM Status: COMPLETED Source: [facility] Neurocritical Care Unit Transfer Note HPI: Anurag Joseph is a 49 year old male w/ PMH IDH 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 Admitted to [facility] on 07/08 for new onset seizure activity. Noted to have bit his tongue en route to hospital causing profuse bleeding. Intubated for airway protection. Lactate noted to be [address] revealed stable glioblastoma. Patient loaded w/ 3g Keppra and then transferred to [facility] for further evaluation and management. Home Medications: Apixaban 5mg PO QD Ondansetron 4mg sublingual PRN Sennosides-docusate sodium 8.6-50mg PO Dexamethasone 2mg PO every day acetaminophen 325mg PO Hospital Course: 07/09: admit to [facility]U for new onset seizure r/t known GBM. vEEG placed 07/10: extubated to MT, MRI brain w/wo OVN. Stable for tx to RNF: neurology Exam Day of Transfer: Awake, alert Oriented to name, hospital, year, reason for hospitalization PERRL, EOMi, VF full, no gaze deviation, no nystagmus No dysarthria or aphasia, hypophonia RUE 0/5 RLE 1/5 LUE 4/5, AG, thumbs up, squeeze/release to command LLE 3/5, AG, knee bend, toe wiggle to command Intermittent right foot flapping SILT b/L Transition of Care Recommendations: - Q4NC, Keppra 1g BID, c/w home Dexamethasone 2 mg every day, off vEEG 07/10, MRI after vEEG (to be completed overnight 07/10) - SBP < 180, resumed Eliquis 5 mg BID (07/10, hx DVT), cont mIVF while NPO - extubated 07/10 to MT: hypophonia but jacki well - Corpak, Pepcid, Nutrition c/s, TF IP 1.5 goal 55cc. No need for POCT, zofran - Interiano out 07/09: voiding - PT/OT - SCDs Follow Up Imaging none Outpatient Follow Up Epilepsy clinic: new onset seizure due to GBM Cards/PCP for Hypertriglyceridemia (TG 634 on admit) Additional Recommendations: - check B12, folate levels for macrocytic hyperchromic anemia - NSGY made aware of MRI brain: may need reconsult or OP F/U Disposition Plan: PM AND R per PT/OT recs. Order placed Code Status: Full code NOK/Contacts: - Karyna Joseph [phone] Please call with questions at any time, Brooklynn Mederos, MSN, SUPERVISORY TRAINING SPECIALIST-EXECUTIVE SOUS CHEF NeuroCritical Care [facility], [facility] Service Cell . Provider Called Report To (Enter Provider Name, Service, and Time): Lilibeth Muse, neurology, 07/11/25 @0110 XR ABDOMEN AP 1 VIEW Observed: 5 3:47 PM Status: F Source: THE [facility] EXAMINATION: XR ABDOMEN AP 1 VIEWPRO 07/10/2025 03:09 PM CLINICAL HISTORY: Step 2 of Corpak 2 Step process ASSOCIATED DIAGNOSIS: ORDERING PROVIDER: [employer]RB[employer] GRANADO TECHN[employer]ISTS NOTE: COMPARISON: Compared to the CT of the chest, abdomen and pelvis dated 09/14/2024 and the chest x-rays obtained earlier on this date. FINDINGS: The visualized feeding tube projects over the right para midline aspect of the mediastinum and the medial aspect of the left upper quadrant with the distal tip well below the level of the gastroesophageal junction in the region of the distal gastric body and the inferior L1 level. The visualized bowel gas patterns are grossly normal and there is a mild amount gas and stool within the visualized colon. The visualized soft tissue structures are grossly normal and there is no gross evidence of free air or free fluid. There is moderate to marked airspace opacity within the visualized lung bases is greater on the right and small to moderate bilateral pleural effusions cannot be excluded. The visualized bony structures are grossly normal. IMPRESSION: 1. The visualized feeding tube is in good position. 2. There is no evidence of bowel obstruction, constipation, free air or free fluid. 3. There are findings consistent with moderate to marked atelectasis and/or pneumonia within the visualized lung bases and small to moderate bilateral pleural effusions cannot be excluded. 4. There are additional findings as described above. MACRO: None XR ABDOMEN AP 1 VIEW Observed: 5 3:46 PM Status: F Source: THE [facility] EXAMINATION: XR ABDOMEN AP 1 VIEWPRO 07/10/2025 03:15 PM CLINICAL HISTORY: Step 2 of Corpak 2 Step process ASSOCIATED DIAGNOSIS: ORDERING PROVIDER: URB[employer] GRANADO TE[employer]ISTS NOTE: COMPARISON: Compared to the CT of the chest, abdomen and pelvis dated 09/14/2024 and the chest x-rays obtained earlier on this date. FINDINGS: The visualized feeding tube projects over the right para midline aspect of the mediastinum and the medial aspect of the left upper quadrant with the distal tip well below the level of the gastroesophageal junction in the region of the gastric body and the mid T12 level. The visualized bowel gas patterns are grossly normal and there is a mild amount gas and stool within the visualized colon. The visualized soft tissue structures are grossly normal and there is no gross evidence of free air or free fluid. There is moderate to marked airspace opacity within the visualized lung bases is greater on the right and small to moderate bilateral pleural effusions cannot be excluded. The visualized bony structures are grossly normal. IMPRESSION: 1. The visualized feeding tube is in good position. 2. There is no evidence of bowel obstruction, constipation, free air or free fluid. 3. There are findings consistent with moderate to marked atelectasis and/or pneumonia within the visualized lung bases and small to moderate bilateral pleural effusions cannot be excluded. 4. There are additional findings as described above. MACRO: None XR CHEST AP OR PA 1 VIEW Observed: 07/10 3:44 PM Status: F Source: THE [facility] EXAMINATION: XR CHEST AP OR PA 1 VIEWPRO 07/10/2025 03:06 PM CLINICAL HISTORY: Feeding tube assessment ASSOCIATED DIAGNOSIS: Feeding tube assessment ORDERING PROVIDER: URB[employer] GRANADO TE[employer]ISTS NOTE: 2nd attempt COMPARISON: Compared to the prior chest x-rays dated 07/08/2025, 07/09/2025 and obtained earlier on this date. Comparison is also made to the abdominal radiographs obtained on this date. FINDINGS: Lines, tubes and devices: The feeding tube projects over the right para midline aspect of the mediastinum and the medial aspect of the right upper quadrant. However, the distal tip is not visible on this study. The right internal jugular Port-A-Cath projects over the lateral aspect of the superior vena cava with the distal tip just below the level of the caval atrial junction. Lungs and pleura: The lung volumes are low with stable moderate to marked patchy and confluent bilateral perihilar, bilateral midlung and bibasilar airspace opacity that is greater on the left. Small bilateral pleural effusions cannot be excluded and there is stable thickening of the pleura within the left apex. The upper lungs are clear. Cardiomediastinal silhouette: The visualized cardiac and mediastinal structures are grossly normal. Musculoskeletal: There is mild to moderate osteopenia throughout study with mild degenerative change of the visualized left shoulder joint and thoracic spine. The remainder of the visualized chest wall and bony thorax are unchanged and otherwise normal. IMPRESSION: 1. The visualized feeding tube appears to be in good position. 2. There is stable moderate to marked patchy and confluent bilateral perihilar, bilateral midlung and bibasilar atelectasis and/or pneumonia that is greater on the left. 3. Small bilateral pleural effusions cannot be excluded. 4. The right Port-A-Cath is stable and in good position. 5. There is stable osteopenia and degenerative bony change throughout the study. 6. The remainder of the chest is unchanged and grossly normal. MACRO: None XR CHEST AP OR PA 1 VIEW Observed: 07/10 3:11 PM Status: F Source: THE [facility] EXAMINATION: XR CHEST AP OR PA 1 VIEWPRO 07/10/2025 02:51 PM CLINICAL HISTORY: Feeding tube assessment ASSOCIATED DIAGNOSIS: Feeding tube assessment ORDERING PROVIDER: [employer]RB[employer] GRANADO [employer] NOTE: COMPARISON: Compared to the prior chest x-rays dated 07/08/2025, 07/09/2025 and obtained earlier on this date. Comparison is also made to the subsequent chest x-ray obtained on this date. FINDINGS: Lines, tubes and devices: The endotracheal tube and enteric tube have been removed. The feeding tube projects over the tracheal air column, remaining bronchus and bronchus intermedius. The right internal jugular Port-A-Cath projects over the lateral aspect of the superior vena cava with the distal tip just below the level of the caval atrial junction. Lungs and pleura: The lung volumes are low with stable moderate to marked patchy and confluent bilateral perihilar, bilateral midlung and bibasilar airspace opacity that is greater on the left. Small bilateral pleural effusions cannot be excluded and there is stable thickening of the pleura within the left apex. The upper lungs are clear. Cardiomediastinal silhouette: The visualized cardiac and mediastinal structures are grossly normal. Musculoskeletal: There is mild to moderate osteopenia throughout study with mild degenerative change of the visualized left shoulder joint and thoracic spine. The remainder of the visualized chest wall and bony thorax are unchanged and otherwise normal. IMPRESSION: 1. The feeding tube projects over the trachea, remaining bronchus and bronchus intermedius and should be repositioned. A critical finding was not initiated on the basis of this exam as this tube was noted to be in good position on the subsequent chest x-ray obtained on this date. 2. There is stable moderate to marked patchy and confluent bilateral perihilar, bilateral midlung and bibasilar atelectasis and/or pneumonia that is greater on the left. 3. Small bilateral pleural effusions cannot be excluded. 4. The right Port-A-Cath is stable and in good position. 5. There is stable osteopenia and degenerative bony change throughout the study. 6. The remainder of the chest is unchanged and grossly normal. MACRO: None GLUCOSE, FINGERSTICK-IN OFFICE Collecte d: 07/10/2025 11:41 AM Status: F Source: [facility] TYPE CODE TESTS RESULT OUT OF RANGE REFERENCE UNITS LAB Welsh GLUCOSE, POC 141 High 74-109 mg/dL Performed By: #### [id number] ### # NURSING GLUCOSE PROGRAM [address] [place], [address] BLOOD GAS, ARTERIAL Collected: 07/10/20 9:19 AM Status: F Source: THE [facility] TYPE CODE TESTS RESULT OUT OF RANGE REFERENCE UNITS LAB MODE MODE Vent LAB fio2 FIO2 (CATEGORY) 40% LAB CR PHA CR PHA 7.416 7.350-7.450 LAB pco2 CR PCO2 39.5 35.0-45.0 mm Hg LAB CR PO2 CR PO2 86 80-100 mm Hg LAB CR %O2 SAT CR % O2 SAT 96.1 95.0-99.0 % LAB CR RIKI CR RIKI 0.9 -2.0-3.0 mmol/L LAB CPCR HCO3 CR HCO3 25 21-28 mmol/L Performed By: #### CR BGA ## ## [facility] [address] [place], [id number] XR CHEST AP OR PA 1 VIEW Observed: 07/10 9:07 AM Status: F Source: THE [facility] EXAMINATION: XR CHEST AP OR PA 1 VIEWPRO 07/10/2025 03:50 AM CLINICAL HISTORY: Endotracheal tube assessment; Respiratory failure ASSOCIATED DIAGNOSIS: Endotracheal tube assessment Respiratory failure ORDERING PROVIDER: [employer]STR[employer] PAINTER TECHNOLOGISTS NOTE: COMPARISON: XR CHEST AP OR PA 1 VIEW 07/09/2025 5:23 AM FINDINGS: Lines, tubes, and devices: An endotracheal tube is present in good position above the tiffany. An orogastric tube is present which traverses the diaphragm with tip coiled in the stomach. A right sided Mediport is present with tip overlying the SVC. Lungs and pleura: Low lung volumes with bibasilar atelectasis. No appreciable pneumothorax. Cardiomediastinal silhouette: Normal cardiomediastinal silhouette. Musculoskeletal: Unremarkable. IMPRESSION: Bibasilar atelectasis. Life-support devices stable. MACRO: None PROGRESS NOTES Observed: 07/10/2025 7:25 AM Status: COMPLETED Source: [facility] Attestation signed by Stacy Croft MD at 07/10/2025 7:47 PM ATTENDING ATTESTATION I have personally performed a face to face diagnostic evaluation on this patient. I have reviewed and agree with the WILLY Catrachita Leiva' care plan. History and exam by me show a 49M PMH butterfly GBM which has been Tx'ed w/ chemotherapy (poorly tolerated by patient) and c/b progression on serial MRIs... now admitted via [facility] for new onset seizures. Exam: eyes open to stimulation, follows commands on Lt side, no gaze deviation, no nystagmus, 0/5 RUE, 4-/5 LUE, 1/5 RLE, 3/5 LLE, no abnormal movements Neuro - new onset seizures due to GBM: no ICH on CTH, 24 hr vEEG showed seizure control, cont. keppra 1 gm q12h (will need o/p epilepsy neurology f/u), was supposed to get MRI brain this week... will get inpatient and inform neurosurgery (uploaded outside images from this year January, March for comparison), cont. home dexamethasone 2 mg daily Pulm - loss of airway protection: improved, extubating today, tongue no longer bleeding, resume DOAC CV - Hx of DVT: resume home apixaban Electrolytes/Renal - NS 75 cc/hr Endo/GI - tube feeds Hem/ID - no active issues PPx - lovenox, pepcid Dispo - medically ready for floor status after proving successful extubation today, will not need a neurology consult... but NSx should be informed when MRI brain is completed for their review Critical Care Split/Shared Documentation Time... I personally incurred more than half of the total time of this encounter providing patient care and confirm the documentation of the entire encounter is accurate. I provided a substantive portion of the care of this patient. This patient has a high probability of sudden, clinically significant deterioration, which requires the highest level of physician preparedness to intervene urgently. I managed/supervised life or organ supporting interventions that required frequent physician assessment. Organ system(s) at risk include:respiratory. Time I spent with family or surrogate(s) is included only if the patient was incapable of providing the necessary information or participating in medical decision making. Time devoted to teaching and to any procedures I billed separately is not included. I spent 41 care minutes of my full attention on this patient's management and direct patient care. Of note, medical issues requiring critical care management include: respiratory failure. 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 Admitted to [facility] on 07/08 for new onset seizure activity. Noted to have bit his tongue en route to hospital causing profuse bleeding. Intubated for airway protection. Lactate noted to be [address] revealed stable glioblastoma. Patient loaded w/ 3g Keppra and then transferred to [facility] for further evaluation and management. Overnight Events: NAOE Home Medications: Apixaban 5mg PO td, Ondansetron 4mg sublingual PRN, Sennosides-docusate sodium 8.6-50mg PO, Dexamethasone 2mg PO every day, acetaminophen 325mg PO, Vital sign ranges over the past 24 hours (retrieved 07/09/2025 at 8:51 PM): Tmax (24 hours): 99.1 ???F (37.3 ???C) Pulse Av Min: 78 Max: 91 Systolic (24hrs), Av , Min:96 , Max:115 Diastolic (24hrs), Av, Min:67, Max:82 MAP (mmHg) Av mmHg Min: 76 mmHg Max: 93 mmHg Resp Av.7 Min: 15 Max: 19 SpO2 Av % Min: 99 % Max: 99 % No intake or output data in the 24 hours ending 07/09/25 0256 Neurological Exam: Sedation: Precedex Level of consciousness: awake to voice RASS 0 Pupils: 2L/1R, PERRL Vision: L/R blink to threat Spontaneous gaze: Midline Corneal reflex: present Gag reflex: present Cough reflex: present Motor Tone: 1/5 RUE, 0/5 RLE. 4/5 LUE, 3/5 LLE Spontaneous abnormal movements: intermittent flapping of rt foot General: General appearance: appears older than stated age and pale Head: Normocephalic. No masses, lesions, tenderness or abnormalities Neck: supple Eyes : PERRLA and EOM's intact Mucous membranes:Mucous membranes pink and moist Lungs: clear to auscultation and tachypnea Heart: regular rate and rhythm and no murmurs, clicks, or gallops Abdomen: soft without tenderness or guarding, no masses or organomegaly, bowel sounds normal Extremities:no erythema, induration, or nodules, no evidence of muscle atrophy, no deformities present Peripheral pulses: Bilateral radial, femoral, DP and PT pulses are normal. Skin: Negative for lesions, rash, and itching. Summary of Imaging AND Other Pertinent Studies: 07/08- OSH Brain/Head w/o contrast - No acute brain abnormality. Unchanged 1cm L frontal pole nodule; 0.8 x 0.8cm L frontal pole nodule; dominant mass extending into the R and L frontal lobes crossing the anterior aspect of the corpus callosum showing nodularity and calcifications measuring 6.2 x 4.2 cm; 2.3 x 1.6cm nodule in the L aspect of the thalamus; 5mm L midline shift Hospital Course: No notes on file A/P: Patient is a 49yo male w/ known history of glioblastoma presenting from OSH w/ new onset seizure activity. Intubated for airway protection en route to OSH. Neuro # Right frontal GBM (glioblastoma multiforme) #Seizures #Rt side hemiparesis - Keppra 1gm BID - continue home dexamethasone 2mg BID - Continue v EEG ( awaiting final read) - Obtain MRI head W/WO -Seizure precautions - Neuro Checks Q4h - CV #DVT hx #Hypertriglyceridemia -Home eliquis on hold -Lovenox 40mg daily ppx - TG 634 on admission - Lipid panel repeated - can consider out patient follow up Pulm #Acute respiratory failure: -Intubated for airway protection - SBT- CPAP continous - plan to extubated today GI/Endo/ -NPO for now -POCT ACHS - 40mg Pepcid every daily ppx Renal/Electrolytes - monitor daily labs and replete PRN Heme/ID #IDH wild-type glioblastoma multiforme - obtain MRI WWO - reengage NSGY after MRI #Thrombocytopenia Monitor daily labs and bleed precautions #Macrocytic Hyperchromic anemia -Check B12 and folate levels L/T: PIV, Port, Interiano, NG PPX: SCDs, LMWH Code: Full Contact: KARYNA JOSEPH Dispo: NCCU Incidental Findings: N/A F/u needs: Pending w/u I physically saw this high risk patient, reviewed the data, including labs and imaging, discussed the patient with the attending,Dr. Rell Croft and developed the plan which appears above. Catrachita Leiva APRN-[facility] Neurocritical Care Service # [phone] GLUCOSE, FINGERSTICK-IN OFFICE Collecte d: 07/10/2025 4:04 AM Status: F Source: [facility] [employer] [facility] TYPE CODE TESTS RESULT OUT OF RANGE REFERENCE UNITS LAB Welsh GLUCOSE, POC 117 High 74-109 mg/dL Performed By: #### [id number] ### # NURSING GLUCOSE PROGRAM [address] [place] [address], [id number] LACTIC ACID Collected: 2:22 AM Status: F Source: [facility] [facility] Order Comment: This test was developed, and its performance characteristics determined by the Department of Pathology of [facility]. It has not been cleared or approved by the FDA. This test is used for clinical purposes only. TYPE CODE TESTS RESULT OUT OF RANGE REFERENCE UNITS LAB CR LACT CR LACT 2.0 High 0.5-1.6 mmol/L Performed By: #### LACT #### [facility] [address] [place] [address], BASIC METABOLIC PANEL Collected: 2024 2:22 AM Status: F [facility] TYPE CODE TESTS RESULT OUT OF RANGE REFERENCE UNITS LAB GLU GLU 141 High 74-109 mg/dL LAB NA3 NA 143 136-145 mmol/L LAB POT K 4.2 3.5-5.0 mmol/L LAB CO2 CO2 29 21-31 mmol/L LAB CHLOR CL 107 98-107 mmol/L LAB BUN BUN 17 7-25 mg/dL LAB CREAT CREAT 1.00 0.70-1.30 mg/dL LAB CA CA 8.6 8.6-10.3 mg/dL LAB ANION GAP ANION GAP 11 10-20 LAB eGFR ESTIMATED GFR (CKD-EPI) 92 >=60 mL/min/1 .73sqm Result Comment: 2020 CKD EPI Equation using [...] Inclusion of Race in Diagnosing Kidney Disease. [place] Journal of Kidney Diseases 2021;79(2):268- 88.e1. 2. N Engl J Med 1 Vol. 385 Issue 19 Pages 9552-3987 Performed By: #### CH8, MG, PHOS, HDL, LDL DIRECT #### [facility] [address] [place] [address], MAGNESIUM Collected: 2:22 AM Status: F [facility]: [facility] TYPE CODE TESTS RESULT OUT OF RANGE REFERENCE UNITS LAB mag MG 2.3 1.9-2.7 mg/dL Performed By: #### CH8, MG, PHOS, HDL, LDL DIRECT #### [facility] [address] [place] [address], PHOSPHORUS Collected: 2:22 AM Status: F Source: [facility] [employer] TYPE CODE TESTS RESULT OUT OF RANGE REFERENCE UNITS LAB PHOS PHOS 3.4 2.5-5.0 mg/dL Performed By: #### CH8, MG, PHOS, HDL, LDL DIRECT #### [facility] [address] [place] [address], FULL LIPID PROFILE Collected: 07/10/2025 2:22 AM Sta tus: F Source: [facility] Order Comment: LDL cannot be calculated due to elevated Triglyceride level. TYPE CODE TESTS RESULT OUT OF RANGE REFERENCE UNITS LAB CHO CHOL 258 High <200 mg/dL Result Comment: Desirable: < 200 mg/dL Borderline High: 200-239 mg/dL High: > = 240 mg/dL LAB TRIG TRIG 506 High <150 mg/dL LAB HDL CHOL HDL CHOL 49 >40 mg/dL LAB I9 NON-HDL CHOLESTEROL 209 High <130 mg/dL LAB CHOLHDL CHOL/HDL 5.27 High <5.00 Performed By: #### CH8, MG, PHOS, HDL, LDL DIRECT #### [facility] [address] [place] [address], LDL CHOLESTEROL, DIRECT Collected: 06/18 2:22 AM Status: F [facility]: [facility] TYPE CODE TESTS RESULT OUT OF RANGE REFERENCE UNITS LAB LDL DIRECT LDL DIRECT 90 <100 mg/dL Performed By: #### CH8, MG, PHOS, HDL, LDL DIRECT #### [facility] [address] [place] [address], COMPLETE BLOOD COUNT Collected: 2:22 AM Status: F [facility]: [facility] TYPE CODE TESTS RESULT OUT OF RANGE REFERENCE UNITS LAB WBC WBC 9.7 4.5-11.5 K/uL LAB RBC RBC 3.62 Low 4.50-5.90 M/uL LAB HGB HGB 13.0 Low 13.9-16.3 g/dL LAB HCT HCT 36.7 Low 41.0-53.0 % LAB MCV MCV 101 High 80-100 fL LAB MCH MCH 35.9 High 26.0-34.0 pg LAB MCHC MCHC 35.4 32.0-35.9 g/dL LAB PLT PLT 138 Low 150-400 K/uL LAB RDW RDW-CV 17.4 High 11.5-14.5 % LAB MPV MPV 8.1 7.5-11.2 fL Performed By: #### CBC #### [facility] [address] [place], [id number] 1:1 INTERACTION Observed: 07/10/2025 12:00 AM Status: COMPLETED Source: [facility] SECLUSION/RESTRAINTS PROVIDE R XOOC-RH-OLRM EVALUATION NOTE Anurag Joseph was evaluated on 07/10/25 at 0000. The attending, Dr. Croft was notified. The patient's immediate situation: Patient became psychomotor agitated. The patient's reaction to the intervention(s): Patient failed to respond to verbal redirection. The patient's medical and behavioral condition at this time: Patient is psychmotor agitated. Need to continue restraint/seclusion order: Yes Patient needs restraints due to risk of harm to self Bryson Goldman APRN-[facility] GLUCOSE, FINGERSTICK-IN OFFICE Collecte d: 07/09/2025 9:39 PM Status: F Source: [facility] [employer] TYPE CODE TESTS RESULT OUT OF RANGE REFERENCE UNITS LAB Welsh GLUCOSE, POC 133 High 74-109 mg/dL Performed By: #### [id number] ### # NURSING GLUCOSE PROGRAM [address] [place] [address], [id number] PROGRESS NOTES Observed: 07/09/2025 5:00 PM Status: COMPLETED Source: [facility] [employer] [facility] Care Coordination ICU Assess ment ICU assessment completed at bedside with pt's this date due to pt's current intubation and inability to participate in assessment. 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 Admitted to [facility] on 07/08 for new onset seizure activity. Noted to have bit his tongue en route to hospital causing profuse bleeding. Intubated for airway protection. Lactate noted to be [address] revealed stable glioblastoma. Patient loaded w/ 3g Keppra and then transferred to [facility] for further evaluation andmanagement." Living Situation: Home with , resides in a two story home first floor bed and bath (and second floor setup). Pt uses cane and walker as needed at home and in community. Pt does not drive, is able to drive pt as needed. Family/Next of Kin: The hierarchy of identification of substitute decision-makers in the [facility] is (in order) court-appointed legal guardian, health-care power of data entry analyst, spouse, majority of adult children, parents, majority of adult siblings, and nearest relative. AT this time, NOK: Karyna Joseph, /HCPOA, Support System: Pt with support in community from , children, and additional family as needed. at bedside and actively involved in hospital stay/medical care. Advance Directive Information: provided HCPOA documents this date, copy taken and placed in chart to be scanned into [facility]. HCPOA: Nidia Joseph, , 1st Alternate: Maricel Joseph, mother, # not provided Insurance: [employer] Care Coordination Needs/Indicators: NCCU support Discharge Plan: Pt intubated at this time with ongoing critical care needs. SW will continue to follow. Felicia DAVISA, MNO, DIRECTOR PROJECT MANAGEMENT Inpatient Science Consultant GLUCOSE, FINGERSTICK-IN OFFICE Collecte d: 07/09/2025 4:03 PM Status: F Source: [facility] [employer] [facility] TYPE CODE TESTS RESULT OUT OF RANGE REFERENCE UNITS LAB Welsh GLUCOSE, POC 140 High 74-109 mg/dL Result Comment: Notified KLARISSA ACE MD Follow Protocol Performed By: #### [id number] ### # NURSING GLUCOSE PROGRAM [address] [place], [address] CONSULTS Observed: 07/09/2025 3:39 PM Status: COMPLETED Source: [facility] OCCUPATIONAL THERAPY INITIAL EVALUATION Patient seen from 1357 to 1414 on 6W unit for 17 minutes. Reason for Admit: Admitted with new onset seizure activity. Noted to have bit his tongue en route to hospital causing profuse bleeding. Head CT revealed stable glioblastoma. Transferred to [facility] for further evaluation and management PMHx: IDH wild-type glioblastoma multiforme involving bilateral frontal lobes across the corpus callosum with baseline R hemiparesis Medical History[1] Surgical History[2] Precautions/Activity Order: seizures, full code SUBJECTIVE: Patient Subjective:na, pt intubated Patient Identified Goal(s):na Home Living Situation Prior Functional Status: Ambulation with a quad cane with arched handle with mod I, pt's notes he drags R foot, noting baseline R hemiparesis, will at times use RW, uses L hand to place R hand on RW, notes more difficulty getting R hand to release from RW once in place, spasticity? 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 Full Bathroom on 2nd level. Bedroom on 2nd level. Equipment available at home: lift chair, elevated toilet seat, RW, quad cane with arched handle OBJECTIVE: Patient Identification: patient's id band and date of . Risks and benefits of occupational therapy: Patient's family informed of risks and benefits of treatment Appearance: superintendent mechanical, Pulse Oximeter, Intubated, and IV Alertness: Awake Affect: flat Cooperation/Behavior: intubated, sedated Communication: Impaired Pain: Pain ratin/10, Location: na Pain Relief Interventions Implemented: None required; No pain at this time Self Care: Assistance Level Dep Max Mod Min CG CS DS MN I Set-Up Comment Feeding x Grooming/Hygiene x Bathing:UB x Bathing:LB x Dressing:UB x Dressing: LB x Toileting x Transfers/Bed Mobility: Assistance Level Dep Max Mod Min CS DS MN I Set-Up Comment Toilet Transfers x Bed Transfers x Bed Mobility x Endurance for Self Care: Impaired Static Sitting Balance: N/T Dynamic Sitting Balance: N/T UE Motor: Right Left Comments Finger flexion 0/5 0/5 Finger extension 0/5 0/5 Wrist extension 0/5 0/5 Wrist flexion 0/5 0/5 Elbow flexion 0/5 0/5 Elbow extension 0/5 0/5 Shoulder flexion 0/5 0/5 Pt with no command follow during evaluation, RN reports he has been following commands with LUE, pt's states RUE was weak prior to admission. Vision/Perception: N/T Cognition: Orientation: unable to assess Follows Commands: Impaired Attention: Impaired Memory: Impaired Problem Solving: Impaired Safety/Judgement: Impaired Sequencing: Impaired Other Specialized Tests: None Patient/Family Education: Instructed patient's family/caregiver in roles of therapy Patient up in bed with call light in reach. 07/09/2025 6 Clicks Daily Activity OT Help from another person Eating meals 1 Help from another person taking care of personal grooming 1 Help from another person bathing 1 Help from another person putting on and taking off regular upper body clothing 1 Help from another person putting on and taking off regular lower body clothing 1 Help from another person toileting 1 OT 6 Clicks Score 6 6 Click Score Guidelines: 1 - Unable = Total/Dependent Assist 2 - A lot = Max/Moderate Assist 3 - A little = Minimum/Contact Guard Assist/Supervision 4 - Non = Modified [place]/Independent ASSESSMENT: Recommend further therapy services in an appropriate Inpatient Rehabilitation setting once medically cleared. Will continue to follow patient while in hospital as appropriate. Rehabilitation Potential: Good Problem List: decreased ADLs, impaired upper extremity motor function, decreased endurance, decreased functional transfers/mobility, impaired balance, decreased cognition, decreased home management tasks/IADLs, decreased functional activity tolerance, and increased pain Goals (to be achieved by discharge from acute care): Patient will feed self with Minimal assistance Patient will perform grooming with Minimal assistance Patient will dress upper body with Minimal assistance Patient will dress lower body with Minimal assistance Patient will perform bed mobility with Minimal assistance Patient will perform bathing with Minimal assistance Patient will perform toileting with Minimal assistance Patient will perform bed transfers with Minimal assistance Patient will perform commode transfers with Minimal assistance Patient will follow 2 step directions with minimal cues Patient will attend to 10 minute functional tasks with minimal cues PLAN: Anurag Joseph will be seen 1-3 times a week. Treatment to include: Functional AROM/Strengthening, functional mobility training, ADL retraining, functional endurance activities, work simplification / energy conservation, cognitive retraining, community re-entry training, home program instruction, home management retraining, functional task simulation, adaptive equipment / compensatory strategy training, patient / family education and discharge planning, referral to appropriate support services, and pain Management able to discuss the evaluation findings and treatment plan with the patient/family. The patient/family did participate in the development of plan and goals. June Nick, GURPREET, OTR/L NA = Not Assessed, I = Independent, MN = Modified Independent, Sup = Supervised, Set up = Physical Assistance for Set-up Only, Min = Minimal Assistance, Mod = Moderate Assistance, Max = Max assistance; Dep = Dependent; AROM = Active Range of Motion;PROM=Passive Range of Motion; MMT = Manual Muscle Test; UB = Upper Body; LB = Lower Body [1] No past medical history on file. [2] Past Surgical History: Procedure Laterality Date INTRAOCULAR LENS IMPLANT, SECONDARY W/ ANTERIOR VITRECTOMY Right 09/21/2024 Procedure: RIGHT FRONTAL STEREOTACTIC BRAIN BIOPSY; Surgeon: Kostas Dupree MD; Location: PERIOPERATIVE SERVICES; Service: Neurosurgery CONSULTS Observed: 07/09/2025 2:21 PM Status: COMPLETED Source: [facility] PHYSICAL THERAPY ACUTE EVALU ATION Referral received, chart reviewed. Patient seen from 1357 to 1414 on GC-6W NCCU unit for 17 minutes. Admit date/time: 07/09/2025 2:26 AM RN approves pt for PT/OT evaluations, noting that he has performed some command follow on L side with thumbs up Reason for Admit: Admitted to [facility] on 07/08 for new onset seizure activity. Noted to have bit his tongue en route to hospital causing profuse bleeding. Intubated for airway protection. Lactate noted to be [address] revealed stable glioblastoma. Transferred to [facility] for further evaluation and management Diagnosis: Breakthrough Seizure Acute Respiratory Failure Glioblastoma Precautions: Seizure Precautions Restraints, non-violent Full Code NPO Activity as tolerated Procedures this admit: none Past Medical and Surgical History: PMH: Medical History[1] PSH: Surgical History[2] Identification was verified by patient's id band and date of . Risks and Benefits of physical therapy: Patient's family informed of risks and benefits of treatment SUBJECTIVE: Patient Subjective:Pt intubated and sedated Patient Identified Goal(s): family wishes for pt to return home MARKET REPORTER Status: (obtained from who was present in room) Ambulation with a quad cane with arched handle with mod I, pt's notes he drags R foot, noting baseline R hemiparesis, will at times use RW, uses L hand to place R hand on RW, notes more difficulty getting R hand to release from RW once in place, spasticity? 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 12 steps to bedroom/bathroom, but first floor set up available Assistance available: 09/05 from , or his mom if needed when has to go out Equipment available: lift chair, elevated toilet seat, RW, quad cane with arched handle OBJECTIVE: Appearance: Obese, EEG 40%, 8.0 PEEP, superintendent mechanical, Pulse Oximeter, Intubated, IV, and Sequential Compression Devices (SCDs), Interiano, L mitt/soft wrist restraint Behavior: Impaired, intubated and sedated, Not responding to aversive stimuli Oriented ? Follows no commands Command follow: Open your eyes 0/3 Squeeze my hand 0/3 BUEs Wiggle your toes 0/3 BLEs Arousal: Opening eyes to voice 0/3 Opening eyes to sternal rub 0/3 CPOT Pain Scale Outcomes Patient Score Vented (Compliance with ventilator) Tolerating vent or movement = 0 Coughing but tolerating = +1 Fighting ventilator = +2 0 Facial Expression Relaxed, neutral = 0 Tense = +1 Grimacing = +2 0 Body Movements Absence of Movements = 0 Protection = +1 Restlessness = +2 0 Muscle Tension Relaxed = 0 Tense, Rigid = +1 Very tense or rigid = +2 0 TOTAL = 0 Tone: Modified Jaclyn Scores for Spasticity: 0 = no increase in muscle tone 1 = Slight increase in muscle tone, manifested as a [id number] or by minimal resistance at the end of range of motion 1+ = Slight increase in muscle tone, manifested by a catch, followed by minimal resistance throughout the remainder (less than half) of the range of motion 2 = More marked increase in muscle tone through most of the range of motion , but the part affected is still able to be easily moved 3 = Considerable increase in muscle tone; passive involvement difficult 4 = Affected part is rigid * Note results are based on maximum rating of 4 Tone Right Left Hip Adductors 0 0 Quadriceps 0 0 Hamstrings 0 0 Anterior Tibialis 0 0 Gastrocnemius Sustained clonus 0 Passive ROM: WFL for body habitus Strength/Active ROM: Pt with no command follow Sensation: Unable to assess due to no command follow Mobility: NA Dep Max Mod Min CG CS DS MN I Comment Roll to right/left side lying x With use of taps for positioning schedule, pt turned onto L side Patient up in bed with call light in reach. Family at bedside. At conclusion of PT, all lines and leads were intact and vitals stable. Vitals Begin of session End of session HR (bpm) 86 bpm 80 bpm SP02 % 95% (ETT) 98% (ETT) RR (rpm) 14 rpm 16 rpm BP (mmHg) 137/66(109) NT Endurance: impaired, intubated Patient/Family Education: Instructed Patient and Spouse in roles, goals, treatment plan: Spouse demonstrated good verbal understanding. Performed PROM- hip/knee flexion/extension, hip abd/add/IR/ER, ankle PF/DF x 10 each with verbally instructing patient to attempt to assist as able (no assist demonstrated), heel cord stretches x 30" B DME: With Patients permission ordered no equipment via [employer]. If any questions contact [facility] DME Provider at [phone]. 07/09/2025 6 Clicks Basic Mobility PT Difficulty turning over in bed 1 Difficulty sitting down and standing up from a chair with arms 1 Difficulty moving from lying on back to sitting on the side of the bed 1 Help from another person moving to and from bed to a chair 1 Help from another person to walk in hospital room 1 Help from another person climbing 3-5 steps with a railing 1 PT 6 Clicks Score 6 6 Click Score Guidelines: 1 - Total [...] the activity independently. Can use assistive devices. ASSESSMENT: Anurag Joseph is a 49 year old male admitted due to Breakthrough Seizure, Acute Respiratory Failure, and Glioblastoma. Pt is currently intubated and sedated with no command follow demonstrated this date. Pt with good family support. Recommend further therapy services in appropriate Rehabilitation setting once medically cleared. Recommend PM AND R consult for assist with discharge planning. Problems: Pain Decreased ROM/strength Decreased functional mobility Decreased endurance Decreased balance Decreased education in exercise/precautions Decreased cognition/behavior Impaired safety awareness Rehabilitation Potential: Good Goals (to be achieved by discharge from acute care): Patient will follow single step motor commands 100% of opportunities. Patient will achieve acceptable level of pain control to allow participation in therapy. Patient will increase bed mobility to log roll with moderate assistance. Patient will maintain upright dynamic sitting balance on EOB x10 minutes with VSS and close supervision. Patient will perform transfer bed to/from chair with rolling walker with minimal assistance. Patient will increase ROM/Strength/Endurance/Balance to allow for above goals. Patient/Family independent with exercise program/precautions. PLAN OF CARE: Frequency: Patient to be seen 1-3 times a week Interventions: Functional mobility ROM/Strengthening Home exercise program Discharge planning and equipment ordering as needed Patient /Family education The evaluation findings and treatment plan were discussed with the patient. The patient indicated understanding and agreement with the plan. Lois Whitehead, PT, DPT, NCS PT license #[id number] NA = Not Assessed, I = Independent, MN = Modified Independent, Sup = Supervised, Set up = Physical Assistance for Set-up Only, Min = Minimal Assistance, Mod = Moderate Assistance, Max = Max assistance; Dep = Dependent; AROM = Active Range of Motion; PROM = Passive Range of Motion; MMT = Manual Muscle Test; LE = Lower Extremity [1] No past medical history on file. [2] Past Surgical History: Procedure Laterality Date INTRAOCULAR LENS IMPLANT, SECONDARY W/ ANTERIOR VITRECTOMY Right 09/21/2024 Procedure: RIGHT FRONTAL STEREOTACTIC BRAIN BIOPSY; Surgeon: Kostas Dupree MD; Location: PERIOPERATIVE SERVICES; Service: Neurosurgery 1:1 INTERACTION Observed: 07/09/2025 1:06 PM Status: COMPLETED Source: [facility] SECLUSION/RESTRAINTS PROVIDE R [id number] EVALUATION NOTE Anurag Joseph was evaluated on 07/09/25 at 1306. The attending, Dr. Croft was notified. The patient's immediate situation: Patient became psychomotor agitated and Patient pulling medical devices. The patient's reaction to the intervention(s): Patient failed to respond to verbal redirection and Patient did not redirect with verbal cues. The patient's medical and behavioral condition at this time: Patient is psychmotor agitated, Patient has poor impulse control and impaired judgement, and Patient in critical condition and requires medical devices. Need to continue restraint/seclusion order: Yes Patient needs restraints due to risk of harm to self Astrid Painter MSN, SUPERVISORY TRAINING SPECIALIST-EXECUTIVE SOUS CHEF Neurology AND Neurocritical Care [facility], [facility] PROGRESS NOTES Observed: 07/09/2025 12:58 PM Status: COMPLETED Source: [facility] Type of EEG Ordered: Prolonged 12-26 hour Patient: Anurag Joseph E#: [id number] Date of : 1975 Date started: 07/09/25 Time started: 12:37pm Time ended: n/a Technologist: Starla Herrera EEG T, CNCT Referred by:Chaz Painter Photic stimulation: completed Hyperventilation: deferred Location: [facility] Handedness: unknown Hx of crani: No 49 y/o male PMH glioblastoma, presented to OSH for new onset seizures with R sided facial twitch then tonic clonic movements and bit his tongue. 24hr EEG for evaluation Prior to starting the test, the patient was verified by two identifiers (name and ). The study and application were both explained in accordance to the patient's level of consciousness. All questions pertaining to the test were answered to the best of the technologist's ability. CONSULTS Observed: 07/09/2025 11:45 AM Status: COMPLETED Source: [facility] Initial Adult Inpatient Nutr ition Assessment Reason for Visit: Consult - TF recs Nutrition Assessment: Admitting Diagnosis: Unresponsive, new seizures Medical History[1] Surgical History[2] has no known allergies. Labs: Basic Metabolic Panel 07/09/2025 3:32 AM Na 145 K 4.1 Cl 108 CO2 29 Gap 12 Glu 86 BUN 24 Cr 1.21 Ca 8.5 Mg 2.3 PO4 4.4 CBC (last 3 years, up to 8 values) 07/09/2025 09/22/2024 09/14/2024 3:32 AM 2:24 AM 4:46 AM WBC 10.4 16.2 13.3 RBC 3.71 4.25 4.74 Hgb 13.1 14.0 15.8 Hct 37.7 42.0 46.1 MCV 102 99 97 RDW 18.4 14.1 13.9 Plt 137 218 237 LFT's (last 3 years, up to 8 values) No lab values to display. Lipids (last 3 years, up to 8 values) 07/09/2025 3:32 AM Chol- esterol 242 TG 634 634 HDL 51 LDL 68 Chol / HDL 4.75 Non HDL 191 Arterial Blood Gases T Site Mode LPM FIO2 pH pCO2 pO2 Sat Base Ex HCO3- A-a 07/09/25 0807 Vent 50% 7.390 44.0 60 90.5 1.3 26 No results found for: "HBA1C" Accuchecks: Fingerstick Glucose (last 72 hours) Glucose 07/09/25 0954 103 Comment: Notified KLARISSA ACE MD
Follow Protocol
07/09/25 0352 85 Comment: Notified KLARISSA ACE MD
Vitamin B12 (pg/mL) Date Value 07/09/2025 155 (L) Folic Acid, Serum (ng/mL) Date Value 07/09/2025 10.3 No results found for: "FE" No results found for: "VITD25" No results found for: "ZINC" Vital sign ranges over the past 24 hours (retrieved 07/09/2025 at 11:45 AM): Tmax (24 hours): 100.2 ???F (37.9 ???C) Pulse Av.9 Min: 16 Max: 100 Systolic (24hrs), Av , Min:96 , Max:133 Diastolic (24hrs), Av, Min:67, Max:105 MAP (mmHg) Av.4 mmHg Min: 76 mmHg Max: 99 mmHg Resp Av.2 Min: 15 Max: 19 SpO2 Av % Min: 95 % Max: 100 % Most Recent Ventilator Settings: FiO2 (%): 50, Vt Set (Tidal Volume): 500 mL LastBM: none yet Nutritionally Significant Meds: dexAMETHasone, 2 mg, Intravenous, Daily albuterol, 2.5 mg, Nebulization, QID RT chlorhexidine oral care kit with toothette, 1 Applicator, Oral, EVERY 12 HOURS levETIRAcetam orderable, 1,000 mg, Intravenous, Every 12 hours enoxaparin, 40 mg, Subcutaneous, Daily Famotidine (PF), 20 mg, Intravenous, Every 12 hours Tube feed, sodium chloride, , Last Rate: 75 mL/hr at 07/09/25 1000 dexmedeTOMIDine (PRECEDEX) IV infusion orderable, 0.2-1.4 mcg/kg/hr (Adjusted), Last Rate: 0.6 mcg/kg/hr (07/09/25 1000) fentaNYL, 25-250 mcg/hr, Last Rate: 75 mcg/hr (07/09/25 1000) Diet Order: NPO Enteral order: Impact Peptide 1.5 @ Please start TF at 20cc/hr increase by 10cc q4h until goal of 50cc/hr. - not yet started Provides: 1200 mL, 1800 fuad, 112g pro Route: OG Nutrition Focused Physical Exam Muscle loss: [place] region: well defined Clavicle region: not visible/not prominent Scapula region:not assessed Hand: muscle bulges Anterior thigh: well rounded Posterior calf: well developed Fat loss: Orbital region: bulged fat pads Tricep/bicep region: ample fat tissue Rib/back region: chest full/ribs do not show Edema: BLE+3 Hair/Nails/Skin: pale skin Eyes/Nose/Mouth: ETT, ogt, tongue bite Height: 6' 0" Admit Weight: 126.4 kg Current Weight: 126.1 kg IBW: 80.9 kg Current BMI: 37.7 Weight hx: BODY MASS INDEX Kg Lbs 09/14/2024 4:19 AM 98.93 kg - standing 218 lb 1.6 oz 09/21/2024 6:50 AM 98.884 kg 218 lb 09/21/2024 11:11 AM 98.431 kg 217 lb 07/09/2025 2:08 AM 126.4 kg 278 lb 10.6 oz 07/09/2025 2:29 AM 126.4 kg 278 lb 10.6 oz 07/09/2025 4:00 AM 126.1 kg 278 lb Estimated needs: using admit wt 3328-1398 kcal/d 14-17 kcal/kg [MSJ 2160 and [facility] 2399] 120-160g pro/d 1.5-2 g pro/kg of ibw 1932-9040 mL/d 20-25 mL/kg Assessment: 49 yo male w/ pmh of IDH 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 Intuabted for airway protection. CTH with stable known glioblastoma. Transferred to and admitted to [facility]. 07/09 EEG; Decadron 2mg daily; elevated TG - Prop d/c and started precedex gtt; NS @ 75 Remains on vent. Seated on precedex now - found to have TG into 600s and previously on Propofol. TF not yet started. OGT remains to LIWS - low output noted in cannister. Abdomen appears distended and hard on my exam. Per RN BS wnl today. No BM yet this admission. Macrocytic anemia and thrombocytopenia present. Serum b12 is low. Folic acid serum wnl - of note not best indicators of total body status. Can start enteral supplementation. 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 Eating variety of regular consistencies without difficulties. No changes in appetite or intake with recent chemo. Did endorse diarrhea after chemo though didn't effect his intake. Noted weight gain over past 9m. No s/s muscle or adipose wasting on exam. Nutrition Problems: Vent Nutrition Interventions: - Enteral nutrition Impact Peptide 1.5 @ 25 mL/hr increasing 10ml q4hr until @ 55 mL/hr x24 Provides 1320 mL, 1980 fuad, 124g protein - Additional fluids per team - Trend TG daily to ensure downtrending off Propofol - Start daily bowel regimen - monitor GI exam with titration of TF. Appears distended and somewhat firm on my exam. - Macrocytic anemia with thrombocytopenia, low serum b12 - consider x1 IM b12 1000mcg then 1000mcg b12 daily - Metabolic cart if unable to extubate early (48 hrs of icu admit) - When extubated suggest FINANCIAL REPORTING DIRECTOR eval before po diet is advanced Grace Castillo RD, LD, [facility] Personal Pager: [phone] (Mon-Fri 7a-3:30p) 45 minutes Dietitian vs DietaryTech: Dietitian and Butt Welder [1] No past medical history on file. [2] Past Surgical History: Procedure Laterality Date INTRAOCULAR LENS IMPLANT, SECONDARY W/ ANTERIOR VITRECTOMY Right 09/21/2024 Procedure: RIGHT FRONTAL STEREOTACTIC BRAIN BIOPSY; Surgeon: Kostas Dupree MD; Location: PERIOPERATIVE SERVICES; Service: Neurosurgery PROCEDURES Observed: 07/09/2025 10:25 AM Status: COMPLETED Source: [facility] Vascular Lower Extremities V enous Duplex [address] [facility] [address] Status:Finalized Demographics Patient name: JAKE LANGLEY Gender: Male Date of : 1975 Age: 49 year(s) Procedure Information Procedure date: 07/09/2025 10:25 AM Procedure type: Vascular Proc. sub type: Veins: Lower Extremities DVT Study, DUPLEX VEIN SCAN/LE. Accession no: [id number] Patient status: Routine Study location: Portable Technical quality: Limited visualization Limitation reason: Poor acoustical window Procedure Plate Grainer Apprentice: Ez Pino RVT Referring Physician: INOCENCIO REED Interpreting physician: TITA ESCOBAR MD Indications Pain, edema, discoloration. Risk Factors Additional comments: No significant history LE Veins DVT Findings Right Location Visualized Compression Thrombosis Signal Dist External Iliac Yes Yes None Phasic Common Femoral Yes Yes None Phasic Prox Femoral Yes Yes None Phasic Mid Femoral Yes Partial Chronic Dist Femoral Yes Partial Chronic Deep Femoral Yes Yes None Popliteal Yes Partial Chronic Phasic PTV Yes Yes None Peroneal Yes Yes None Left Location Visualized Compression Thrombosis Signal Dist External Iliac Yes Yes None Phasic Common Femoral Yes Yes None Phasic Prox Femoral Yes Yes None Phasic Mid Femoral Yes Yes None Dist Femoral Yes Yes None Deep Femoral Yes Yes None Popliteal Yes Yes None Phasic PTV Yes Yes None Peroneal Yes Yes None LE Veins Superficial Findings Right Left Location Visualized Compression Thrombosis Visualized Compression Thrombosis [place] Femoral Junction Yes Yes None Yes Yes None Prox GSV Yes Yes None Yes Yes None GSV Mid Thigh Yes Yes None Yes Yes None GSV Below Knee Yes Yes None Yes Yes None SSV Yes Yes None Yes Yes None Physician Impressions Right: Chronic-appearing deep vein thrombosis in the right femoral and popliteal veins with partial recanalization of flow. Patent right external iliac, common femoral, and tibial veins. No evidence of superficial venous thrombophlebitis on the right. Left: LEFT- Normal venous duplex study of the left lower extremity. There is no evidence of deep or superficial venous thrombosis. Physician Conclusions Summary: Simultaneous real time imaging of venous blood flow using both pulsed and color Doppler, as well as B-mode evaluation of the venous system with compression techniques, was used to evaluate the deep and superficial veins of the lower extremities . The study demonstrates the following finding(s). Chronic-appearing deep vein thrombosis in the right femoral and popliteal veins with partial recanalization of flow. Patent right external iliac, common femoral, and tibial veins. No evidence of superficial venous thrombophlebitis on the right. LEFT- Normal venous duplex study of the left lower extremity. There is no evidence of deep or superficial venous thrombosis. TMENT PLAN NOTE Observed: 07/09/2025 9:55 AM Status: COMPLETED [facility]: [facility] Neurocritical Care Treatment Plan Note: HPI: obtained from patient's and chart review; majority of chart unable to be viewed in care everywhere (primary and cancer care at [facility]) Anurag Joseph is a 49 year old right-handed male with PMH of IDH wild-type glioblastoma multiforme involving bilateral frontal lobes across the corpus callosum with baseline R hemiparesis who is now s/p chemo and radiation (non-operative for resection d/t location of tumors), hx of RLE DVT 12/2024 on Eliquis. Patient initially presented [facility] 07/08 for new onset seizure activity started with facial twitching (?R sided) then full TC movements, bit his tongue with excessive bleeding and was intubated at OSH for airway protection. Lactate 15 at OSH, CTH at OSH revealed partially calcified known multifocal GBM lesions through b/L frontal lobes across corpus callosum. Of note, patient recently had MR head at [facility] in March 2025, showed worsening vasogenic edema and new masses for which he underwent another round of intensive IV chemotherapy and was scheduled for follow-up MRI OP yesterday to discuss if there was any improvement in MRI findings. Will plan for vEEG now then likely MRI head wwo after vEEG. GLUCOSE, FINGERSTICK-IN OFFICE Collecte d: 07/09/2025 9:54 AM Status: F Source: [facility] TYPE CODE TESTS RESULT OUT OF RANGE REFERENCE UNITS LAB Welsh GLUCOSE, POC 103 74-109 mg/dL Result Comment: Notified KLARISSA ACE MD Follow Protocol Performed By: #### [id number] ### # NURSING GLUCOSE PROGRAM [address] [place] [address], [id number] PARTIAL THROMBOPLASTIN TIME Collected: 07/09/2025 8:44 AM Status: F Source: [facility] TYPE CODE TESTS RESULT OUT OF RANGE REFERENCE UNITS LAB APTT APTT 29 25-37 sec Performed By: #### APTT, PT #### S [facility] [address], [place], PROTHROMBIN TIME AND INR Collected: 8:44 AM Status: F Source: [facility] TYPE CODE TESTS RESULT OUT OF RANGE REFERENCE UNITS LAB PT PAT PROTIME 13.4 High 9.7-12.9 sec LAB INR INR 1.20 High 0.90-1.10 Performed By: #### APTT, PT #### [facility] [address] [place] [address], BLOOD GAS, ARTERIAL Collected: 07/09/20 8:07 AM Status: F [facility]: [facility] TYPE CODE TESTS RESULT OUT OF RANGE REFERENCE UNITS LAB MODE MODE Vent LAB fio2 FIO2 (CATEGORY) 50% LAB CR PHA CR PHA 7.390 7.350-7.450 LAB pco2 CR PCO2 44.0 35.0-45.0 mm Hg LAB CR PO2 CR PO2 60 Low 80-100 mm Hg LAB CR %O2 SAT CR % O2 SAT 90.5 Low 95.0-99.0 % LAB CR RIKI CR RIKI 1.3 -2.0-3.0 mmol/L LAB CPCR HCO3 CR HCO3 26 21-28 mmol/L Performed By: #### LACT, CR BGA #### [facility] [address], [place], LACTIC ACID Collected: 8:07 AM Status: F Source: [facility] Order Comment: This test was developed, and its performance characteristics determined by the Department of Pathology of [facility]. It has not been cleared or approved by the FDA. This test is used for clinical purposes only. TYPE CODE TESTS RESULT OUT OF RANGE REFERENCE UNITS LAB CR LACT CR LACT 1.7 High 0.5-1.6 mmol/L Performed By: #### LACT, CR BGA #### [facility] [address], [place], CONSULTS Observed: 07/09/2025 7:49 AM Status: COMPLETED Source: [facility] PHYSICAL THERAPY CHART REVIE W Referral received, chart reviewed. Admit date/time: 07/09/2025 2:26 AM Reason for Admit: Admitted to [facility] on 07/08 for new onset seizure activity. Noted to have bit his tongue en route to hospital causing profuse bleeding. Intubated for airway protection. Lactate noted to be [address] revealed stable glioblastoma. Transferred to [facility] for further evaluation and management. Diagnosis: Breakthrough Seizure Acute Respiratory Failure Glioblastoma Precautions: Seizure Precautions Restraints, non-violent Full Code NPO Procedures this admit: none Past Medical and Surgical History: PMH: IDH wild-type glioblastoma multiforme involving R/L frontal lobes c/b rt sided hemiparesis (s/p radiation and chemo), DVT The patient is currently intubated and with a RASS of -2 and not appropriate for Physical Therapy at this time. Nikita Saucedo DPT XR CHEST AP OR PA 1 VIEW Observed: 07/09 6:49 AM Status: F Source: [facility] EXAMINATION: XR CHEST AP OR PA 1 VIEWPRO 07/09/2025 05:23 AM CLINICAL HISTORY: Endotracheal tube assessment ASSOCIATED DIAGNOSIS: Endotracheal tube assessment ORDERING PROVIDER: BRYSON GOLDMAN TECHNREBA NOTE: COMPARISON: None FINDINGS: Lines, tubes, and devices: Telemetry leads overlying the chest. An endotracheal tube is present in good position above the tiffany. An orogastric tube is present which traverses the diaphragm with tip not included in the field of view. Right-sided approach chest port tip terminates over the cavoatrial junction. Lungs and pleura: Bibasilar atelectasis. Cardiomediastinal silhouette: Normal cardiomediastinal silhouette. Musculoskeletal: Unremarkable. IMPRESSION: Life support devices are in their expected locations excluding the orogastric tube which the distal tip is not included in the [id number]. MACRO: None I have personally reviewed the images and agree with the resident's interpretation. GLUCOSE, FINGERSTICK-IN OFFICE Collecte d: 07/09/2025 3:52 AM Status: F Source: [facility] TYPE CODE TESTS RESULT OUT OF RANGE REFERENCE UNITS LAB Welsh GLUCOSE, POC 85 74-109 mg/dL Result Comment: Notified KLARISSA ACE MD Performed By: #### [id number] ### # NURSING GLUCOSE PROGRAM [address] [place], [place] [address], [address] COMPLETE BLOOD COUNT Collected: 025 3:32 AM Status: F Source: [facility] TYPE CODE TESTS RESULT OUT OF RANGE REFERENCE UNITS LAB WBC WBC 10.4 4.5-11.5 K/uL LAB RBC RBC 3.71 Low 4.50-5.90 M/uL LAB HGB HGB 13.1 Low 13.9-16.3 g/dL LAB HCT HCT 37.7 Low 41.0-53.0 % LAB MCV MCV 102 High 80-100 fL LAB MCH MCH 35.3 High 26.0-34.0 pg LAB MCHC MCHC 34.6 32.0-35.9 g/dL LAB PLT PLT 137 Low 150-400 K/uL LAB RDW RDW-CV 18.4 High 11.5-14.5 % LAB MPV MPV 8.1 7.5-11.2 fL Performed By: #### CBC #### [facility] [address] [place] [address], [id number] BASIC METABOLIC PANEL Collected: 2024 3:32 AM Status: F Source: [facility] TYPE CODE TESTS RESULT OUT OF RANGE REFERENCE UNITS LAB GLU GLU 86 74-109 mg/dL LAB NA3 NA 145 136-145 mmol/L LAB POT K 4.1 3.5-5.0 mmol/L LAB CO2 CO2 29 21-31 mmol/L LAB CHLOR CL 108 High 98-107 mmol/L LAB BUN BUN 24 7-25 mg/dL LAB CREAT CREAT 1.21 0.70-1.30 mg/dL LAB CA CA 8.5 Low 8.6-10.3 mg/dL LAB ANION GAP ANION GAP 12 10-20 LAB eGFR ESTIMATED GFR (CKD-EPI) 73 >=60 mL/min/1 .73sqm Result Comment: 2020 CKD EPI Equation using [...] Inclusion of Race in Diagnosing Kidney Disease. [place] Journal of Kidney Diseases 2021;79(2):268- 88.e1. 2. N Engl J Med 2021 Vol. 385 Issue 19 Pages 0130-7342 Performed By: #### CK, MG, P HOS, TRIG, HDL, LDL DIRECT, CH8, FOL, VITB12, HEPATIC #### [facility] [address] [place] [address], CREATINE KINASE Collected: 3:32 AM Status: F [facility]: [facility] TYPE CODE TESTS RESULT OUT OF RANGE REFERENCE UNITS LAB dC CREATINE KINASE 89 30-233 IU/L Performed By: #### CK, MG, P HOS, TRIG, HDL, LDL DIRECT, CH8, FOL, VITB12, HEPATIC #### [facility] [address] [place] [address], MAGNESIUM Collected: 3:32 AM Status: F Source: [facility]ITALROClearMomentum SYSTEM TYPE CODE TESTS RESULT OUT OF RANGE REFERENCE UNITS LAB mag MG 2.3 1.9-2.7 mg/dL Performed By: #### CK, MG, P HOS, TRIG, HDL, LDL DIRECT, CH8, FOL, VITB12, HEPATIC #### [facility] [address] [place] [address], PHOSPHORUS Collected: 3:32 AM Status: F Source: [facility]ITAL[facility]Mom[facility] TYPE CODE TESTS RESULT OUT OF RANGE REFERENCE UNITS LAB PHOS PHOS 4.4 2.5-5.0 mg/dL Performed By: #### CK, MG, P HOS, TRIG, HDL, LDL DIRECT, CH8, FOL, VITB12, HEPATIC #### [facility] [address] [place] [address], TRIGLYCERIDES Collected: 3:32 AM Status: F Source: [facility]ITALR[facility] TYPE CODE TESTS RESULT OUT OF RANGE REFERENCE UNITS LAB TRIG TRIG 634 High <150 mg/dL Result Comment: Normal: < 15 0 mg/dL Borderline High: 150-199 mg/dL High: 200-499 mg/dL Very High: > = 500 mg/dL Performed By: #### CK, MG, P HOS, TRIG, HDL, LDL DIRECT, CH8, FOL, VITB12, HEPATIC #### [facility] [address] [place] [address], FULL LIPID PROFILE Collected: 07/09/2025 3:32 AM Sta tus: F Source: [facility] Order Comment: LDL cannot be calculated due to elevated Triglyceride level. TYPE CODE TESTS RESULT OUT OF RANGE REFERENCE UNITS LAB CHO CHOL 242 High <200 mg/dL LAB TRIG TRIG 634 High <150 mg/dL LAB HDL CHOL HDL CHOL 51 >40 mg/dL LAB I9 NON-HDL CHOLESTEROL 191 High <130 mg/dL LAB CHOLHDL CHOL/HDL 4.75 <5.00 Performed By: #### CK, MG, P HOS, TRIG, HDL, LDL DIRECT, CH8, FOL, VITB12, HEPATIC #### [facility] [address] [place] [address], FOLIC ACID Collected: 3:32 AM Status: F Source: [facility]Ring[facility] TYPE CODE TESTS RESULT OUT OF RANGE REFERENCE UNITS LAB FOL FOL 10.3 5.9-24.7 ng/mL Performed By: #### CK, MG, P HOS, TRIG, HDL, LDL DIRECT, CH8, FOL, VITB12, HEPATIC #### S [facility] [address] [place] [address], VITAMIN B12 (CYANOCOBALAMIN) Collected: 07/09/2025 3:32 AM Status: F Source: [facility] Order Comment: Deficient: <= 145 pg/mL Insufficient: 145 - 180 pg/mL Sufficient: 180 - 914 pg/mL TYPE CODE TESTS RESULT OUT OF RANGE REFERENCE UNITS LAB VITB12 VITB12 155 Low 180-914 pg/mL Performed By: #### CK, MG, P HOS, TRIG, HDL, LDL DIRECT, CH8, FOL, VITB12, HEPATIC #### [facility] [address] [place] [address], LDL CHOLESTEROL, DIRECT Collected: 06/18 3:32 AM Status: F Source: [facility] TYPE CODE TESTS RESULT OUT OF RANGE REFERENCE UNITS LAB LDL DIRECT LDL DIRECT 68 <100 mg/dL Performed By: #### CK, MG, P HOS, TRIG, HDL, LDL DIRECT, CH8, FOL, VITB12, HEPATIC #### S [facility] [address] [place] [address], HEPATIC FUNCTION PANEL Collected: 07/09 3:32 AM Status: F Source: [facility] TYPE CODE TESTS RESULT OUT OF RANGE REFERENCE UNITS LAB ALB ALB 3.0 Low 3.5-5.7 g/dL LAB DBILI DBIL 0.08 0.03-0.18 mg/dL LAB TBILI TBIL 0.6 0.3-1.0 mg/dL Result Comment: Note updated reference range. LAB ALKPHOS ALK 42 34-104 IU/L LAB ALT2 ALT 47 7-52 IU/L LAB AST2 AST 21 13-39 IU/L LAB tp TP 5.2 Low 6.1-7.9 g/dL Result Comment: Note updated reference range. Performed By: #### CK, MG, P HOS, TRIG, HDL, LDL DIRECT, CH8, FOL, VITB12, HEPATIC #### [facility] [address], [place], LEVETIRACETAM Collected: 3:32 AM Status: F [facility]: [facility] Order Comment: The levetirac etam (Keppra) immunoassay in use, has known cross-reactivity with the drug brivaracetam (Briviact) and which may affect the levetiracetam result. Patients transitioning from levetiracetam to brivaracetam or those who are using both medications should not monitor drug concentrations with this immunoassay. These patients should be monitored using a chromatographic methodology that distinguishes between drugs to determine drug concentrations. TYPE CODE TESTS RESULT OUT OF RANGE REFERENCE UNITS LAB Levetira LEVETIRA 19.4 6.0-46.0 ug/mL Performed By: #### LEVET ### # [facility] [address], [place], LACTIC ACID Collected: 3:32 AM Status: F Source: THE [facility] Order Comment: This test was developed, and its performance characteristics determined by the Department of Pathology of [facility]. It has not been cleared or approved by the FDA. This test is used for clinical purposes only. TYPE CODE TESTS RESULT OUT OF RANGE REFERENCE UNITS LAB CR LACT CR LACT 2.5 High 0.5-1.6 mmol/L Performed By: #### LACT #### [facility] [address] [place], [address] 1:1 INTERACTION Observed: 07/09/2025 2:00 AM Status: COMPLETED Source: THE [facility] SECLUSION/RESTRAINTS PROVIDE R [id number] EVALUATION NOTE Anurag Joseph was evaluated on 07/09/25 at 0200. The attending, Dr. Croft was notified. The patient's immediate situation: Patient became psychomotor agitated. The patient's reaction to the intervention(s): Patient failed to respond to verbal redirection. The patient's medical and behavioral condition at this time: Patient is psychmotor agitated. Need to continue restraint/seclusion order: Yes Patient needs restraints due to risk of harm to self BRIANNA Lai H AND P Observed: 07/09/2025 12:39 AM Status: COMPLETED Source: [facility] Attestation signed by Stacy Croft MD at 07/09/2025 6:23 PM (Updated) ATTENDING ATTESTATION I have personally performed a face to face diagnostic evaluation on this patient. I have reviewed and agree with the WILLY Bryson Goldman's care plan. History and exam by me show a 49M PMH butterfly GBM which has been Tx'ed w/ chemotherapy (poorly tolerated by patient) and c/b progression on serial MRIs... now admitted via [facility] for new onset seizures. Exam: eyes open to stimulation, follows commands on Lt side, no gaze deviation, no nystagmus, 1/5 RUE, 4/5 LUE, 1/5 RLE, 3/5 LLE; withdraws right side and is purposeful on left, no abnormal movements Neuro - new onset seizures due to GBM: no ICH on CTH, 24 hr vEEG, keppra 1 gm q12h, was supposed to get MRI brain this week... will get inpatient and inform neurosurgery (uploaded outside images from this year January, March for comparison), cont. Home dexamethasone 2 mg daily; sedation: precedex gtt Pulm - loss of airway protection: intubated @ OSH for lingual hemorrhaging, tongue no longer bleeding, resume DOAC tomorrow, PS as tolerated today w/ plan to extubate tomorrow if cont. to awaken w/o further seizures CV - Hx of DVT: resume home apixaban tomorrow Electrolytes/Renal - d/c interiano catheter, NS 75 cc/hr Endo/GI - tube feeds Hem/ID - SIRS: has resolved since OSH presentation, likely stress response from seizures PPx - lovenox, pepcid Critical Care Split/Shared Documentation Time... I personally incurred more than half of the total time of this encounter providing patient care and confirm the documentation of the entire encounter is accurate. I provided a substantive portion of the care of this patient. This patient has a high probability of sudden, clinically significant deterioration, which requires the highest level of physician preparedness to intervene urgently. I managed/supervised life or organ supporting interventions that required frequent physician assessment. Organ system(s) at risk include:respiratory, DEGREASER OPERATOR Time I spent with family or surrogate(s) is included only if the patient was incapable of providing the necessary information or participating in medical decision making. Time devoted to teaching and to any procedures I billed separately is not included. I spent 40 care minutes of my full attention on this patient's management and direct patient care. Of note, medical issues requiring critical care management include: status epilepticus, respiratory failure. 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 Admitted to [facility] on 07/08 for new onset seizure activity. Noted to have bit his tongue en route to hospital causing profuse bleeding. Intubated for airway protection. Lactate noted to be [address] revealed stable glioblastoma. Patient loaded w/ 3g Keppra and then transferred to [facility] for further evaluation and management. Overnight Events: Admitted to N[facility], 1g Keppra on admission, sedated w/ propofol and fentanyl. Home Medications: Apixaban 5mg PO td, Ondansetron 4mg sublingual PRN, Sennosides-docusate sodium 8.6-50mg PO, Dexamethasone 2mg PO every day, acetaminophen 325mg PO, Pre-Hospital mRS: unknown baseline function at this time. Will need to clarify when able to discuss with family as patient intubated. 0 no symptoms at all 1 has some symptoms (like dizziness) BUT is functioning completely normally and fully 2 some disability; able to perform all ADLs (dressing, nutrition, hygiene) BUT may not continue with all prior activities like playing golf or driving 3 moderate disability; needs some help BUT is able to walk without assistance 4 moderate - severe disability; needs help with ADLs and is NOT able to walk without assistance 5 severe disability; complete dependency Vital sign ranges over the past 24 hours (retrieved 07/09/2025 at 8:51 PM): Tmax (24 hours): 99.1 ???F (37.3 ???C) Pulse Av Min: 78 Max: 91 Systolic (24hrs), Av , Min:96 , Max:115 Diastolic (24hrs), Av, Min:67, Max:82 MAP (mmHg) Av mmHg Min: 76 mmHg Max: 93 mmHg Resp Av.7 Min: 15 Max: 19 SpO2 Av % Min: 99 % Max: 99 % No intake or output data in the 24 hours ending 07/09/25 0256 Current inpatient medications Scheduled: chlorhexidine oral care kit with toothette, 1 Applicator, Oral, EVERY 12 HOURS levETIRAcetam orderable, 1,000 mg, Intravenous, Every 12 hours enoxaparin, 40 mg, Subcutaneous, Daily Famotidine (PF), 20 mg, Intravenous, Every 12 hours Continuous: propofol, 1-50 mcg/kg/min fentaNYL, 25-250 mcg/hr PRN: PRN medications: propofol AND propofol, fentaNYL AND fentaNYL, albuterol, albuterol, dextrose iv for hypoglycemia orderable OR glucagon OR dextrose OR dextrose Neurological Exam: Sedation: Propofol and Fentanyl Level of consciousness: sedated, arousable to voice Pupils: 2L/1R, PERRL Vision: L/R blink to threat Spontaneous gaze: Midline Corneal reflex: present Gag reflex: present Cough reflex: present Motor Tone: 1/5 RUE, 0/5 RLE. 4/5 LUE, 3/5 LLE Spontaneous abnormal movements: intermittent flapping of rt foot Physical Exam Vitals reviewed. Constitutional: General: He is not in acute distress. Appearance: Normal appearance. He is obese. He is not ill-appearing, toxic-appearing or diaphoretic. HENT: Head: Normocephalic and atraumatic. Mouth/Throat: Mouth: Mucous membranes are moist. Comments: Dried blood Eyes: Pupils: Pupils are equal, round, and reactive to light. Cardiovascular: Rate and Rhythm: Normal rate and regular rhythm. Pulses: Normal pulses. Heart sounds: Normal heart sounds. No murmur heard. No friction rub. No gallop. Pulmonary: Effort: Pulmonary effort is normal. No respiratory distress. Breath sounds: Normal breath sounds. Abdominal: General: Abdomen is flat. Bowel sounds are normal. Palpations: Abdomen is soft. Musculoskeletal: Right lower leg: Edema present. Left lower leg: Edema present. Comments: +4 pitting edema LLE/RLE Skin: General: Skin is warm and dry. Capillary Refill: Capillary refill takes less than 2 seconds. Summary of Imaging AND Other Pertinent Studies: 07/08- OSH Brain/Head w/o contrast - No acute brain abnormality. Unchanged 1cm L frontal pole nodule; 0.8 x 0.8cm L frontal pole nodule; dominant mass extending into the R and L frontal lobes crossing the anterior aspect of the corpus callosum showing nodularity and calcifications measuring 6.2 x 4.2 cm; 2.3 x 1.6cm nodule in the L aspect of the thalamus; 5mm L midline shift Hospital Course: No notes on file A/P: Patient is a 49yo male w/ known history of glioblastoma presenting from OSH w/ new onset seizure activity. Intubated for airway protection en route to OSH. Neuro #New onset seizures #Rt side hemiparesis #Lactic Acidosis -CTH @ OSH c/w stable glioblastoma -1g Keppra on arrival followed by 1g bid -Keppra Level in AM -Seizure precautions - Initiate cEEG - Neuro Checks Q2h - Lactate recheck 15 (OSH)--> 2.5 CV #DVT hx #Hypertriglyceridemia -Home eliquis on hold -Lovenox 40mg daily ppx - TG 634 on admission - Lipid panel ordered Pulm #Acute respiratory failure: -Intubated for airway protection -Lung protective mechanical ventilation (Vt 500, R 16, PEEP 12, Fio2 70) -CXR -SBT when appropriate GI/Endo/ -NPO for now -POCT ACHS - 40mg Pepcid every daily ppx Renal/Electrolytes - monitor daily labs and replete PRN MSK/Rheum N/A Skin N/A Heme/ID #IDH wild-type glioblastoma multiforme #Thrombocytopenia #Macrocytic Hyperchromic anemia -Check B12 and folate levels L/T: PIV, Port, Interiano, NG PPX: SCDs, LMWH Code: Full Contact: KARYNA JOSEPH Dispo: NCCU Incidental Findings: N/A F/u needs: Pending w/u I physically saw this high risk patient, reviewed the data, including labs and imaging, discussed the patient with the attending, and developed the plan which appears above. 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 Admitted to [facility] on 07/08 for new onset seizure activity. Noted to have bit his tongue en route to hospital causing profuse bleeding. Intubated for airway protection. Lactate noted to be [address] revealed stable glioblastoma. Patient loaded w/ 3g Keppra and then transferred to [facility] for further evaluation and management. Overnight Events: Admitted to NCCU, 1g Keppra on admission, sedated w/ propofol and fentanyl. Home Medications: Apixaban 5mg PO td, Ondansetron 4mg sublingual PRN, Sennosides-docusate sodium 8.6-50mg PO, Dexamethasone 2mg PO every day, acetaminophen 325mg PO, Pre-Hospital mRS: unknown baseline function at this time. Will need to clarify when able to discuss with family as patient intubated. 0 no symptoms at all 1 has some symptoms (like dizziness) BUT is functioning completely normally and fully 2 some disability; able to perform all ADLs (dressing, nutrition, hygiene) BUT may not continue with all prior activities like playing golf or driving 3 moderate disability; needs some help BUT is able to walk without assistance 4 moderate - severe disability; needs help with ADLs and is NOT able to walk without assistance 5 severe disability; complete dependency Vital sign ranges over the past 24 hours (retrieved 07/09/2025 at 8:51 PM): Tmax (24 hours): 99.1 ???F (37.3 ???C) Pulse Av Min: 78 Max: 91 Systolic (24hrs), Av , Min:96 , Max:115 Diastolic (24hrs), Av, Min:67, Max:82 MAP (mmHg) Av mmHg Min: 76 mmHg Max: 93 mmHg Resp Av.7 Min: 15 Max: 19 SpO2 Av % Min: 99 % Max: 99 % No intake or output data in the 24 hours ending 07/09/25 0256 Current inpatient medications Scheduled:chlorhexidine oral care kit with toothette, 1 Applicator, Oral, EVERY 12 HOURS levETIRAcetam orderable, 1,000 mg, Intravenous, Every 12 hours enoxaparin, 40 mg, Subcutaneous, Daily Famotidine (PF), 20 mg, Intravenous, Every 12 hours Continuous: propofol, 1-50 mcg/kg/min fentaNYL, 25-250 mcg/hr PRN: PRN medications: propofol AND propofol, fentaNYL AND fentaNYL, albuterol, albuterol, dextrose iv for hypoglycemia orderable OR glucagon OR dextrose OR dextrose Neurological Exam: Sedation: Propofol and Fentanyl Level of consciousness: sedated, arousable to voice Pupils: 2L/1R, PERRL Vision: L/R blink to threat Spontaneous gaze: Midline Corneal reflex: present Gag reflex: present Cough reflex: present Motor Tone: 1/5 RUE, 0/5 RLE. 4/5 LUE, 3/5 LLE Spontaneous abnormal movements: intermittent flapping of rt foot Physical Exam Vitals reviewed. Constitutional: General: He is not in acute distress. Appearance: Normal appearance. He is obese. He is not ill-appearing, toxic-appearing or diaphoretic. HENT: Head: Normocephalic and atraumatic. Mouth/Throat: Mouth: Mucous membranes are moist. Comments: Dried blood Eyes: Pupils: Pupils are equal, round, and reactive to light. Cardiovascular: Rate and Rhythm: Normal rate and regular rhythm. Pulses: Normal pulses. Heart sounds: Normal heart sounds. No murmur heard. No friction rub. No gallop. Pulmonary: Effort: Pulmonary effort is normal. No respiratory distress. Breath sounds: Normal breath sounds. Abdominal: General: Abdomen is flat. Bowel sounds are normal. Palpations: Abdomen is soft. Musculoskeletal: Right lower leg: Edema present. Left lower leg: Edema present. Comments: +4 pitting edema LLE/RLE Skin: General: Skin is warm and dry. Capillary Refill: Capillary refill takes less than 2 seconds. Summary of Imaging AND Other Pertinent Studies: 07/08- OSH Brain/Head w/o contrast - No acute brain abnormality. Unchanged 1cm L frontal pole nodule; 0.8 x 0.8cm L frontal pole nodule; dominant mass extending into the R and L frontal lobes crossing the anterior aspect of the corpus callosum showing nodularity and calcifications measuring 6.2 x 4.2 cm; 2.3 x 1.6cm nodule in the L aspect of the thalamus; 5mm L midline shift Hospital Course: No notes on file A/P: Patient is a 49yo male w/ known history of glioblastoma presenting from OSH w/ new onset seizure activity. Intubated for airway protection en route to OSH. Neuro #New onset seizures #Rt side hemiparesis #Lactic Acidosis -CTH @ OSH c/w stable glioblastoma -1g Keppra on arrival followed by 1g bid -Keppra Level in AM -Seizure precautions - Initiate cEEG - Neuro Checks Q2h - Lactate recheck 15 (OSH)--> 2.5 CV #DVT hx #Hypertriglyceridemia -Home eliquis on hold -Lovenox 40mg daily ppx - TG 634 on admission - Lipid panel ordered Pulm #Acute respiratory failure: -Intubated for airway protection -Lung protective mechanical ventilation (Vt 500, R 16, PEEP 12, Fio2 70) -CXR -SBT when appropriate GI/Endo/ -NPO for now -POCT ACHS - 40mg Pepcid every daily ppx Renal/Electrolytes - monitor daily labs and replete PRN MSK/Rheum N/A Skin N/A Heme/ID #IDH wild-type glioblastoma multiforme #Thrombocytopenia #Macrocytic Hyperchromic anemia -Check B12 and folate levels L/T: PIV, Port, Interiano, NG PPX: SCDs, LMWH Code: Full Contact: KARYNA JOSEPH Dispo: NCCU Incidental Findings: N/A F/u needs: Pending w/u Chadd HICKEYN, RN, CCRN-[facility] SUPERVISORY TRAINING SPECIALIST Student PATIENT INSTRUCTIONS Observed: 11:45 AM Status: COMPLETED Source: [facility] My office will coordinate a referral to cancer center at [facility] Prescription for Dexamethasone refilled PROGRESS NOTES Observed: 10/01/2024 11:12 AM Status: COMPLETED Source: THE [facility] ...Patient was identified by name and date of . Celeste Austin MA PROGRESS NOTES Observed: 10/01/2024 11:00 AM Status: COMPLETED Source: [facility] [place] post-op note: Anurag Jake 48 year old male Postop visit s/p [...] than benefit) Final Diagnosis A and B. "Brain, RIGHT FRONTAL BRAIN BIOPSY" GLIOBLASTOMA, IDH1 (R132H) WILD TYPE (WHO Grade [...] deep frontal location, crossing midline, surgical resection presents more risk than benefit. Discussed additional options for treatment including radiation therapy, chemotherapy with temozolomide and Optune. Clinical trial enrollment could also be considered. His preference is to receive treatment closer to home. A referral will therefore be placed to radiation oncology and medical oncology at [facility]. Dexamethasone 2 mg b.i.d. renewed, we will defer to Oncology on duration of continue treatment. Follow-up as needed. Kostas Dupree MD MSc FRCSC FAANS Neurosurgeon [employer] Associate Department of Neurological Surgery [facility] Pager [phone] DISCHARGE SUMMARY Observed: 09/22/2024 10:26 AM Status: COMPLETED Source: THE [facility] DISCHARGE SUMMARY [address] [place] [address] Anurag Joseph Date of : 1975 48 year old male Attending Kostas Dupree MD Date of Admission 09/21/2024 Date of Discharge 09/22/24 Final Diagnosis: Frontal mass of brain with local mass effect and brain compression. Pathology - high grade glioma/GBM. Future Appointments Date Time Provider Department Center 10/01/2024 11:00 AM Kostas Dupree MD [facility] Condition at Discharge unchanged Symptoms to look [...] signs that should prompt more urgent follow-up GLUCOSE, FINGERSTICK-IN OFFICE Collecte d: 09/22/2024 8:04 AM Status: F Source: THE [facility] TYPE CODE TESTS RESULT OUT OF RANGE REFERENCE UNITS LAB [place] GLUCOSE, POC 111 High 74-109 mg/dL Performed By: #### [id number] ### # NURSING GLUCOSE PROGRAM [address] [facility] [place], [address] PROGRESS NOTES Observed: 09/22/2024 7:54 AM Status: COMPLETED Source: THE [employer] NEUROSURGERY DAILY PROGRESS NOTE SUBJECTIVE: No acute [...] Sands MD Neurological Surgery, PGY-3 Service Pager [phone] 09/22/2024 - 7:53 AM PROGRESS NOTES Observed: 09/22/2024 6:16 AM Status: COMPLETED Source: THE [facility] Attestation signed by Prasanna Asencio MD at [...] Care Time 35 minutes Prasanna Asencio MD [facility] Department of Surgery SURGICAL ICU PROGRESS NOTE Anurag Joseph [id number] Admission Date: 09/21/2024 Background: Anurag Joseph is a 48 year old male with no significant PMH who presented to [facility] ED for headache. CT showed intracranial tumor. [...] mL/kg/hr)] Net: 989.5 Weight: 98.4 kg IV 2489 [place] 2079 PHYSICAL EXAM BP 120/72 Pulse 52 Temp 97.9 ???F (36.6 ???C) Resp 13 Ht 6' 1" (1.854 m) Wt 217 lb (98.4 kg) [...] hours) Glucose 09/21/24 2149 218 Comment: Notified RN MALKA NEVAREZ
09/21/24 1628 122 09/21/24 1051 96 No results found for: "HBA1C" No results found for: "TSH" Blood Culture No lab values to display. [...] final recommendations. Alex Yarbrough MD General Surgery BASIC METABOLIC PANEL Collected: 2023 2:24 AM Status: F Source: THE [facility] TYPE CODE TESTS RESULT OUT OF RANGE REFERENCE UNITS LAB GLU GLU 123 High 74-109 mg/dL LAB NA3 NA 139 136-145 mmol/L LAB POT K 4.7 3.5-5.0 mmol/L LAB CO2 CO2 25 21-31 mmol/L LAB CHLOR CL 105 98-107 mmol/L LAB BUN BUN 27 High 7-25 mg/dL LAB CREAT CREAT 0.96 0.70-1.30 mg/dL LAB CA CA 8.4 Low 8.6-10.3 mg/dL LAB ANION GAP ANION GAP 14 10-20 LAB eGFR ESTIMATED GFR (CKD-EPI) 97 >=60 mL/min/1 .73sqm Result Comment: 2020 CKD EPI Equation using [...] Inclusion of Race in Diagnosing Kidney Disease. [place] Journal of Kidney Diseases 202;79(2):268- 88.e1. 2. N Engl J Med 1 Vol. 385 Issue 19 Pages 0945-1171 Performed By: #### MG, CH8 # ### [facility] [address] [place] [address], [id number] MAGNESIUM Collected: 12/07/202 4 2:24 AM Status: F [facility] TYPE CODE TESTS RESULT OUT OF RANGE REFERENCE UNITS LAB mag MG 2.1 1.9-2.7 mg/dL Performed By: #### MG, CH8 # ### [facility] [address] [place] [address], PARTIAL THROMBOPLASTIN TIME Collected: 09/22/2024 2:24 AM Status: F Source: [facility] TYPE CODE TESTS RESULT OUT OF RANGE REFERENCE UNITS LAB APTT APTT 25 25-37 sec Performed By: #### APTT, PT #### [facility] [address] [place] [address], PROTHROMBIN TIME AND INR Collected: 04/2024 2:24 AM Status: F Source: [facility] TYPE CODE TESTS RESULT OUT OF RANGE REFERENCE UNITS LAB PT PAT PROTIME 11.9 9.7-12.9 sec LAB INR INR 1.06 0.90-1.10 Performed By: #### APTT, PT #### S [facility] [address] [place] [address], COMPLETE BLOOD COUNT Collected: 024 2:24 AM Status: F Source: [facility] TYPE CODE TESTS RESULT OUT OF RANGE REFERENCE UNITS LAB WBC WBC 16.2 High 4.5-11.5 K/uL LAB RBC RBC 4.25 Low 4.50-5.90 M/uL LAB HGB HGB 14.0 13.9-16.3 g/dL LAB HCT HCT 42.0 41.0-53.0 % LAB MCV MCV 99 80-100 fL LAB MCH MCH 32.9 26.0-34.0 pg LAB MCHC MCHC 33.3 32.0-35.9 g/dL LAB PLT PLT 218 150-400 K/uL LAB RDW RDW-CV 14.1 11.5-14.5 % LAB MPV MPV 8.4 7.5-11.2 fL Performed By: #### CBC #### [facility] [address] [place] [address], GLUCOSE, FINGERSTICK-IN OFFICE Collecte d: 09/21/2024 9:49 PM Status: F Source: [facility] TYPE CODE TESTS RESULT OUT OF RANGE REFERENCE UNITS LAB [place] GLUCOSE, POC 218 High 74-109 mg/dL Result Comment: Notified KLARISSA ACE MD Performed By: #### [id number] ### # NURSING GLUCOSE PROGRAM [address] [place], [address] CT HEAD W/O CONTRAST Observed: 5:10 PM Status: F Source: THE [facility] EXAMINATION: CT HEAD W/O CON TRAST 09/21/2024 04:47 PM CLINICAL HISTORY: Postoperative evaluation [...] territorial infarction, or hydrocephalus. Small right frontal patrizia hole for stereotactic biopsy. Remaining calvarium and skull base are within normal limits. Paranasal sinuses and tympanomastoid cavities are unopacified. 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 No acute intracranial abnormality. MACRO: None GLUCOSE, FINGERSTICK-IN OFFICE Collecte d: 09/21/2024 4:28 PM Status: F Source: THE [place] [facility] TYPE CODE TESTS RESULT OUT OF RANGE REFERENCE UNITS LAB [place] GLUCOSE, POC 122 High 74-109 mg/dL Performed By: #### [id number] ### # NURSING GLUCOSE PROGRAM [address] [facility] [place], [address] PROGRESS NOTES Observed: 09/21/2024 1:35 PM Status: COMPLETED Source: THE [facility] [facility] Attestation signed by Prasanna Asencio MD at [...] male : 1975 Admit Date: 09/21/2024 Room: [place] [id number] Today's Date: 09/21/2024, Length of stay: 1 day(s) Code Status: Prior Height: 6' 1" Weight: 98.4 kg BMI: 28.63 Reason for consultation: Q1 neuro checks Referring physician: Patient seen and examined on 09/21/2024 History of Present Illness: Background: Anurag Joseph is a 48 year old male with no significant PMH who presented to [facility] ED for headache. CT showed intracranial tumor. [...] Right frontal approach stereotactic brain biopsy with [employer] system EBL: not documented Fluid replacement: [...] 1051 96 A1c: No results found for: "HBA1C" TSH: No results found for: "TSH" Blood Culture: Blood Culture No lab values [...] strict I AND O Infectious Disease: - Received 1xc dose periop [...] of days: 0 Peripheral IV Access: 09/21/24 07 18 gauge Left Forearm (Active) Site Assessment WNL;Dressing intact 09/21/24 07 Infusion Status Port #1 Capped;Patent;Positive blood return [...] final recommendations. Alex Yarbrough MD General Surgery ANESTHESIA POSTPROCEDURE EVALUATION Observed: 09/21/2024 11:01 AM Status: COMPLETED Source: [facility] Anesthesia Postoperative Ass essment: Vital Signs (most recent): BP 131/71 Pulse 61 Temp 36.6 ???C (97.9 ???F) (Oral) Resp 18 Ht 6' 1" (1.854 m) Wt 218 lb (98.9 kg) SpO2 97% BMI 28.76 kg/m??? Anesthesia Post Evaluation Level of consciousness: awake Post-procedure exam normal. Body temperature, hydration status, PONV and pain evaluated and addressed. Pain management: adequate Hydration status: normal PONV:No nausea/vomiting reported Cardiopulmonary status stable Respiratory status: acceptable Cardiovascular status: acceptable ANESTHESIA NOTABLE EVENTS: No notable events documented. ANESTHESIA TRANSFER OF CARE Observed: 09/21/2024 11:00 AM Status: COMPLETED Source: THE [facility] Patient taken to ICU, sponta neous breathing with supplemental oxygen. Standard transport monitoring, emergency medications and equipment available. Completed SBAR handoff to the receiving nurse. Patient was awake, comfortable, and stable on arrival. ICU Transfer Note Basic Operating Room Facts: Surgeon(s): Kostas Dupree MD Scrub: Nadeen Bryan RN Mexican Food Machine Tender Nurse: Bryson Roman RN Lamination Technician: Muriel Sands MD Anesthesiologist: Carmelo Ware MD Procedure Rn: Geoff Espinoza MD RIGHT FRONTAL STEREOTACTIC BRAIN [...] Access: 09/21/24744 16 gauge Left Hand (Active) Arterial Line: 09/21/24 Right (Active) Airway Insertion Details [REMOVED] Advanced Airway: ETT, Oral;Cuffed (Removed) 09/21/24 07 Pre-Oxygenation/ Induction: Mask Rapid Sequence Induction?: Mask [...] the report was received. Geoff Espinoza MD GLUCOSE, FINGERSTICK-IN OFFICE Collecte d: 09/21/2024 10:51 AM Status: F Source: [facility] TYPE CODE TESTS RESULT OUT OF RANGE REFERENCE UNITS LAB Welsh GLUCOSE, POC 96 74-109 mg/dL Performed By: #### [id number] ### # NURSING GLUCOSE PROGRAM [address] [place] [address], [address] STUDENT NOTE Observed: 09/21/2024 10:48 AM Status: ACTIVE Source: [facility] DEPARTMENT OF SURGERY DIVISION OF TRAUMA, BURN, AND CRITICAL CARE SURGICAL INTENSIVE CARE UNIT (SICU) History AND Physical Examination Patient: Anurag Joseph, 48 year old, male : 1975 Admit Date: 09/21/2024 Room: [place] [address] Today's Date: 09/21/2024, Length of stay: 1 day(s) Code Status: Prior Height: 6' 1" Weight: 98.4 kg BMI: 28.63 Reason for consultation: Q1 neuro checks Referring physician: Patient seen and examined on 09/21/2024 History of Present Illness: Background: Anurag Joseph is a 48 year old male with no significant PMH who presented to [facility] ED for headache. CT showed intracranial tumor. He was transferred to for NSGY consult. MRI showed multifocal glioblastoma. No evidence of primary or metastatic disease in chest/abdomen or pelvis. He was started on dexamethasone. He was transferred to the SICU on POD0 for q1 neuro checks s/p R frontal stereotactic biopsy. Hospital Course: 12/6- biopsy performed, transferred to SICU Operative Course: Right frontal approach stereotactic brain biopsy with [employer] system EBL: not documented Fluid replacement: 1750 [...] 1051 96 A1c: No results found for: "HBA1C" TSH: No results found for: "TSH" Blood Culture: Blood Culture No lab values [...] Medications: sodium chloride 30 mL/hr at 09/21/24 1200 Assessment and Plan: Diagnosis s/p R frontal stereotactic biopsy: - Multifocal glioblastoma PMH: None Plan: Neurological: # Multifocal glioblastoma Plan: - Acetaminophen 650 mg PO q4h PRN mild pain (1-3) - Oxycodone 5 mg PO q6h PRN moderate pain (4-6) - Oxycodone 10 mg PO q6h PRN severe pain (7-10) - Decadron 2mg BID Cardiovascular: - Not tachycardic - BP normotensive to borderline hypertensive to 142/99 Plan: - Vital signs per floor protocol Respiratory: - Satting 97-98% on RA Plan: - Maintain SpO2 >92% GI/Diet: Plan: - Diet: Regular - Colace 100 mg PO BID - Scopolamine patch 1.5 mg q72h - GI prophylaxis: protonix 40mg daily before breakfast Renal/Electrolytes: - Baseline kidney function and lytes wnl Plan: - mIVF: NS 30 mL/hr - BMP/Mg daily - Replace electrolytes as indicated - Maintain Mg >2, K >4 - Measure strict I AND O Infectious Disease: - Received 1xc dose periop gentamicin - Afebrile, not tachycardic - Prior WBC 13.3 Plan: - Start ancef 2g IV q8h [...] Number of days: 0 Peripheral IV Access: 09/21/24706 18 gauge Left Forearm (Active) Site Assessment WNL;Dressing intact 09/21/24706 Infusion Status Port #1 Capped;Patent;Positive blood return 09/21/24706 Number of days: 0 Peripheral IV Access: 09/21/2445 16 gauge Left Hand (Active) Number of days: 0 Indwelling Urinary Catheter 09/21/2449 16 FR (Active) Number of days: 0 Prophylaxis: - SCDs Disposition: - Remain in SICU Follow Up: - PCP: No primary care provider on file. - NSGY Code Status: - Prior I have reviewed the above listed plan with the surgery critical care attending and it is preliminary until finalized by them. Kindly await their final recommendations. MGMT METHYLATION DETECTOR Collected: 09/21/2024 9:27 AM Status: F Source: THE [facility] Order Comment: Resulting Age ncy Address Site ID: EO Name: [facility] Address: [address] [place] [id number] Director: Arnol Manzanares M.D. Ph.D. TYPE CODE TESTS RESULT OUT OF RANGE REFERENCE UNITS LAB RESULTSUM RESULT SUMMARY MGMT PROMOTER METHYLATION ABSENT LAB RESULT RESULT Result Comment: Provided maude gnosis: brain intraoperative; favor glioma Tumor tissue: Negative for MGMT promoter methylation LAB INTERPRETA INTERPRETATION Result Comment: Current data suggest that the absence of MGMT [...] developed and its performance characteristics determined by [facility] in a manner consistent with CLIA requirements. This test has not been cleared or approved by the U.S. Food and Drug Administration. LAB ADDITIONINFO ADDITIONAL INFORMATION Result Comment: REFERENCES 1. N Engl J Med 2005;352(10):997-1003 (PMID: 91777145) 2. Denisha Rev Neurol 2010;6:39-51 (PMID: 34175547) 3. Lancet Oncol. 2012; 13:707-715 (PMID: [id number]) 4. Lancet Oncol. 2012; 13: 916-926 (PMID: 91581265) 5. Denisha Rev Neurol 2014;10:372-385 (PMID: 58271088) LAB SPEC SPECIMEN Tissue, Tumor LAB TISSUEID TISSUE ID [id number] LAB RELEASEDBY RELEASED BY Mily Matamoros M.D., Ph.D. Performed By: #### MGMT #### [facility] [address] [place] [address] [place], [place] [address] OR NURSING Observed: 09/21/2024 9:13 AM Status: COMPLETED Source: [facility] SICU ssds mk 2 advanced operator directed to c all Dr Asencio. Dr Dupree talked to Dr Asencio who accepted pt to SICU. Bed co-ordinator contacted OR NURSING Observed: 09/21/2024 8:56 AM Status: COMPLETED Source: [facility] Contacted Alexandria hansen RN inre bed for pt postop. No rooms on NCCU as of now. MELA Overton suggested to contact SICU BRIEF OPERATIVE NOTE Observed: 8:44 AM Status: COMPLETED Source: [facility] Brief Operative Note MAIN OR 03 Anurag Joseph 48 year old male Surgical Contact Serial Number: [id number] Preoperative Diagnosis: Pre-op Diagnosis * Frontal mass of brain [G93.89] Postoperative Diagnosis: * Frontal mass of brain [G93.89] Procedures: Right frontal approach stereotactic brain biopsy with Geckode system Surgeon(s): Surgeon(s): Kostas Dupree MD Staff: Scrub: Nadeen Bryan RN Mexican Food Machine Tender Nurse: Bryson Roman RN Lamination Technician: Muriel Sands MD Anesthesia: General Anesthesiologist: Carmelo Ware MD Procedure Rn: Geoff Espinoza MD Specimen(s): ID Type Source [...] by Kostas Dupree MD 09/21/2024 10:13 AM OP NOTE Observed: 09/21/2024 8:44 AM Status: COMPLETED Source: [facility] Operative Note MAIN OR 03 Anurag Joseph 48 year old male Surgical Contact Serial Number: [id number] Preoperative Diagnosis: Pre-op Diagnosis * Frontal mass of brain [G93.89] - with brain compression Postoperative Diagnosis: * Frontal mass of brain [G93.89] - with brain compression * High grade glioma/GBM Procedures: Right frontal approach stereotactic brain biopsy with [employer] system Surgeon(s): Surgeon(s): Kostas Dupree MD Staff: Scrub: Nadeen Bryan RN Mexican Food Machine Tender Nurse: Bryson Roman RN Lamination Technician: Muriel Sands MD Anesthesia: General Anesthesiologist: Carmelo Ware MD Procedure Rn: Geoff Espinoza MD Specimen(s): ID Type Source [...] right frontal approach stereotactic brain biopsy. The ZUCHEM navigation system was registered and the location [...] to facilitate access of the drill. The [employer]de system was brought into position and the [...] portion of the procedure and procedure sign-out. PROGRESS NOTES Observed: 09/21/2024 7:27 AM Status: COMPLETED Source: [facility] NEUROSURGERY POST-OPERATIVE NOTE Interval HPI: Post-op check. [...] Sands MD Neurological Surgery PGY-3 Service Pager: [phone] 09/21/2024 - 7:27 AM H AND P Observed: 09/21/2024 7:26 AM Status: COMPLETED Source: [facility] Surgical Attestation: I have reviewed the patient's History and Physical Examination. I have personally seen and evaluated the patient, repeating priest portions. There is no significant interval change. Surgery is still indicated. Yes Consent reviewed and signed by patient/family: Yes Operative site verified and marked: Yes Muriel Sands MD Neurological Surgery, PGY-3 Pager: [phone] 09/21/2024 - 7:26 AM BLOOD ATTESTATION Observed: 09/21/2024 7:04 AM Status: COMPLETED Source: [facility] Blood Attestation: ATTESTATION OF INFORMED CONSENT FOR BLOOD: The transfusion of blood and/or blood components were discussed with the patient and/or legal representative phlebotomy services. The risks, benefits and alternatives were reviewed. Questions regarding blood transfusions were answered. The patient /or the patient's legal representative phlebotomy services agree with the plan for transfusion of blood and/or blood components. TYPE AND SCREEN Collected: 7:02 AM Status: F Source: [facility] TYPE CODE TESTS RESULT OUT OF RANGE REFERENCE UNITS LAB I ABORH ABO RH TYPE A Negative LAB ABSC INT ABSC INT Negative LAB HXCHK ABORH/AB/TR HISTORY A Negative Performed By: #### TS #### [facility] [address] [place], [address] ANESTHESIA PREPROCEDURE EVALUATION Observed: 09/20/2024 11:06 AM Status: COMPLETED Source: [facility] ASA: 3 Past Medical History and Review [...] medical history who presented with headache to [facility]. CT head showed intracranial tumor. He [...] were discussed with the patient and/or legal representative phlebotomy services. The risks, benefits and alternatives were reviewed. Questions regarding anesthesia were answered. Patient and/or legal representative phlebotomy services knows such anesthetics and procedures may be performed by Resident physicians, Certified Anesthesiologist Assistants, or Certified Nurse Anesthetists under the supervision of a physician. The patient /or the patient's legal representative phlebotomy services agree with the plan for anesthesia. PATFORM PATIENT INSTRUCTIONS Observed: 11:56 AM Status: COMPLETED Source: [facility] Plan for OR on 09/25 - will let you know if this changes PROGRESS NOTES Observed: 09/17/2024 10:52 AM Status: COMPLETED Source: [facility] [employer] [facility] [place] follow up note: Anurag Joseph 48 year old male Follow up for frontal brain mass Accompanied by , Karyna and ddtcon-ig-iyk HPI Intermittent ALVAREZ, relief w/ tylenol Disequilibrium present Over the summer, noticed disinterest in hobbies Fatigue has worsened over the last several weeks Per nxeduv-ly-brw, executive functioning AND decision-making has been poor recently No c/o vision changes, seizures, or sensory changes Scheduled for biopsy on 09/25 Hospital Course 09/13/24 - 09/15/24: 48 yo male with no significant past medical history who presented with headache to [facility]. CT head showed intracranial tumor. He [...] on 09/25. Reviewed risks, benefits and alternatives of surgery. Relatively inoperable without significant morbidity. Discussed option of ROSSI. Risks include, but are not limited to: perioperative anesthetic risks, infection, bleeding, neurological injury, stroke, and disability. This is not an exhaustive list. Kostas Dupree MD MSc FRCSC FAANS Neurosurgeon [employer] Associate Department of Neurological Surgery [facility] Pager [phone] PROGRESS NOTES Observed: 09/15/2024 12:03 PM Status: COMPLETED Source: [facility] 09/15/24 1202 Discharge Note Discharge Time 1202 [...] worsening. All belongings taken home with patient. CT HEAD FOR NAVIGATION W/O Observed: 9:24 AM Status: F Source: [facility] EXAMINATION: CT HEAD FOR MARK IGATION W/O 09/15/2024 08:45 AM CLINICAL HISTORY: in preparation for OR ASSOCIATED DIAGNOSIS: in preparation for OR ORDERING PROVIDER: LISA CORNELIUS TECHNOLOGISTS NOTE: COMPARISON: MR HEAD W/+W/O 09/14/2024, [...] planning purposes without significant change. MACRO: None DISCHARGE SUMMARY Observed: 09/15/2024 7:34 AM Status: COMPLETED Source: [facility] DISCHARGE SUMMARY [address] [address] Anurag Joseph Date of : 1975 48 [...] medical history who presented with headache to [facility]. CT head showed intracranial tumor. He [...] clear to auscultation Abdomen - soft, nontender DEGREASER OPERATOR - EOMI, no facial palsy, strength 5/5 [...] signs that should prompt more urgent follow-up PROGRESS NOTES Observed: 09/15/2024 6:51 AM Status: COMPLETED Source: THE [employer] NEUROSURGERY DAILY PROGRESS NOTE Overnight Events: NAEON [...] edema for which patient was transferred to [facility] and NSGY was consulted. - Medicine primary [...] -followup with Dr. Dupree at 1030 at [facility] outpatient clinic on 09/17 -will discuss surgical intervention brain biopsy with patient then and will plan to schedule for 09/25 -remainder unchanged Please call anytime with questions or concerns. .Ryan Koehler PA-C Neurological Surgery Pager: [phone] 09/15/2024 - 6:53 AM PROTHROMBIN TIME AND INR Collected: 6:19 AM Status: F Source: [facility] TYPE CODE TESTS RESULT OUT OF RANGE REFERENCE UNITS LAB PT PAT PROTIME 13.7 High 9.7-12.9 sec LAB INR INR 1.22 High 0.90-1.10 Performed By: #### PT #### [facility] [address], [place], TYPE AND SCREEN Collected: 6:19 AM Status: F Source: [facility] TYPE CODE TESTS RESULT OUT OF RANGE REFERENCE UNITS LAB I ABORH ABO RH TYPE A Negative LAB ABSC INT ABSC INT Negative LAB HXCHK ABORH/AB/TR HISTORY No Previous Results Performed By: #### TS #### [facility] [address], [place], CT CHEST/ABD/PELVIS W/ CONTRAST Observed: 09/15/2024 12:15 AM Status: F Source: [facility] EXAMINATION: CT CHEST/ABD/PE LVIS W/ CONTRAST 09/14/2024 10:36 PM CLINICAL HISTORY: [...] limited due to motion artifact. Cardiovasculature: Unremarkable Mediastinum/Pericardium: Unremarkable Pleura: Unremarkable [employer]: Widely patent [...] images and agree with the resident's interpretation. CONSULTS Observed: 09/14/2024 3:36 PM Status: COMPLETED Source: [facility] PHYSICAL THERAPY ACUTE EVALU ATION Referral received, chart reviewed. 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 If any questions contact [facility] DME Provider at [phone]. 6 Clicks Basic Mobility PT 09/14/24 Difficulty [...] NA = Not Assessed, I = Independent, MN = Modified Independent, Sup = Supervised, Set up = Physical Assistance for Set-up Only, Min = Minimal Assistance, Mod = Moderate Assistance, Max = Max assistance; Dep = Dependent; AROM = Active Range of Motion; PROM = Passive Range of Motion; MMT = Manual Muscle Test; LE = Lower Extremity MR HEAD W/+W/O Observed: 09/14/2024 2:24 PM Status: F Source: [facility] EXAMINATION: MR HEAD W/+W/O 09/14/2024 11:03 AM [...] images and agree with the resident's interpretation. CONSULTS Observed: 09/14/2024 2:11 PM Status: COMPLETED Source: [facility] OCCUPATIONAL THERAPY INITIAL EVALUATION Patient seen from [...] surgical history on file. 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) Independent Ambulation without assistive device Independent [...] Dep Max Mod Min CG CS DS MN I Set-Up Comment Feeding x Grooming/Hygiene x Anticipate standing at sink Bathing:UB x Simulated sponge bathing Bathing:LB x Simulated sponge bathing Dressing:UB x Simulated with functional reach Dressing: LB x Threaded BLEs through pants seated, managed up over hips in standing Toileting x Anticipate for clothing management Transfers/Bed Mobility: Assistance Level Dep Max Mod Min CG CS DS MN I Set-Up Comment Toilet Transfers x Anticipate [...] With Patients permission ordered no equipment via [employer] Order. If any questions contact [facility] DME Provider at [phone]. 6 Clicks Daily Activity OT 09/14/24 Help [...] Guard Assist/Supervision 4 - Non = Modified [place]/Independent ASSESSMENT: Patient is functionally appropriate for discharge [...] NA = Not Assessed, I = Independent, MN = Modified Independent, Sup = Supervised, Set up = Physical Assistance for Set-up Only, Min = Minimal Assistance, Mod = Moderate Assistance, Max = Max assistance; Dep = Dependent; AROM = Active Range of Motion;PROM=Passive Range of Motion; MMT = Manual Muscle Test; UB = Upper Body; LB = Lower Body TREATMENT PLAN NOTE Observed: 09/14/2024 1:17 PM Status: COMPLETED Source: [facility] Neurosurgery Treatment Plan Note Interval updates: MRI [...] concerns. Gail Hanley MD Neurosurgery PGY-1 Pager: [phone] 09/14/24 - 1:17 PM PROGRESS NOTES Observed: 09/14/2024 10:59 AM Status: COMPLETED Source: [facility] 09/14/24 1058 Assessment and Discharge Planning Evaluation [...] information. 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 Per Karyna, pt is "robust and hard working." Over the summer he started experiencing headaches. Too soon to tell if pt will have any d/c needs. Might depend if he has surgery or not. Per rounds, pt is not medically cleared for discharge at this time. Discharge is tentatively scheduled for [facility]. CM will continue to monitor for discharge planning needs. Kiana OLIVER RN Inpatient [employer] [phone] Available Tuesday - Tuesday 8:00 AM - 6:00 PM H AND P Observed: 09/14/2024 6:58 AM Status: COMPLETED Source: [facility] General Internal Medicine History and Physical Note HISTORY OF PRESENT ILLNESS: Anurag Joseph, a 48-year-old male with no significant past medical history and not on any medications, presented to the emergency department from [facility] with a complaint of headache. The history [...] oz (98.9 kg) Height: -- -- 6' 1" (1.854 m) 6' 1" (1.854 m) Physical exam: - General: Patient [...] values to display. No results found for: "HBA1C" Fingerstick Glucose None CULTURES: Urine Culture No lab values to display. Blood Culture No lab values to display. Sputum Culture None Pyogen Culture None CSF Culture No lab values to display. Other studies / imaging reviewed: SR-Brain/Head without Contrast IMPORT Result Date: 09/13/2024 Narrative: Images were obtained outside of [facility] Current Facility-Administered Medications Medication Dose Route Frequency [...] exam, medication reconciliation, review of code status, short order fry cook, and documentation: 58 minutes. Linda Valenzuela D.O. 09/14/24 6:58 AM [My coverage for this patient is limited to the hours between 6PM and 7AM the following day. Please page listed 1st call provider outside of those hours. Thank you.] CBC WITH DIFFERENTIAL Collected: 2023 4:46 AM Status: F [facility] TYPE CODE TESTS RESULT OUT OF RANGE REFERENCE UNITS LAB WBC WBC 13.3 High 4.5-11.5 K/uL LAB RBC RBC 4.74 4.50-5.90 M/uL LAB HGB HGB 15.8 13.9-16.3 g/dL LAB HCT HCT 46.1 41.0-53.0 % LAB MCV MCV 97 80-100 fL LAB MCH MCH 33.5 26.0-34.0 pg LAB MCHC MCHC 34.4 32.0-35.9 g/dL LAB PLT PLT 237 150-400 K/uL LAB RDW RDW-CV 13.9 11.5-14.5 % LAB MPV MPV 8.8 7.5-11.2 fL LAB CPnT NEUTROPHILS 92.9 High 31.0-76.0 % LAB nt NEUTROPHIL # 12.40 High 1.50-8.00 K/uL LAB CPIY LYMPHOCYTES 4.2 Low 24.0-44.0 % LAB ly LYMPHOCYTES # 0.56 Low 1.00-4.80 K/uL LAB CPmO MONOCYTES 2.5 2.0-11.0 % LAB mo MONOCYTE # 0.33 0.20-1.00 K/uL LAB CPeO EOSINOPHIL 0.3 0.1-4.0 % LAB eo EOSINOPHIL # 0.03 0.00-0.70 K/uL LAB CPbA BASOPHILS 0.2 <=1.9 % LAB ba BASOPHIL # 0.02 0.00-0.20 K/uL Performed By: #### CBCDSAT # ### [facility] [address] [place], [address] BASIC METABOLIC PANEL Collected: 2023 4:46 AM Status: F Source: [facility] TYPE CODE TESTS RESULT OUT OF RANGE REFERENCE UNITS LAB GLU GLU 182 High 74-109 mg/dL LAB NA3 NA 138 136-145 mmol/L LAB POT K 4.2 3.5-5.0 mmol/L LAB CO2 CO2 24 21-31 mmol/L LAB CHLOR CL 105 98-107 mmol/L LAB BUN BUN 25 7-25 mg/dL LAB CREAT CREAT 1.12 0.70-1.30 mg/dL LAB CA CA 9.7 8.6-10.3 mg/dL LAB ANION GAP ANION GAP 13 10-20 LAB eGFR ESTIMATED GFR (CKD-EPI) 81 >=60 mL/min/1 .73sqm Result Comment: 2020 CKD EPI Equation using [...] Inclusion of Race in Diagnosing Kidney Disease. Belgian Journal of Kidney Diseases 202;79(2):268- 88.e1. 2. N Engl J Med 1 Vol. 385 Issue 19 Pages 5520-1391 Performed By: #### CH8 #### [facility] [address], [place], ED PROVIDER NOTES Observed: 09/14/2024 1:21 AM Status: COMPLETED Source: [facility] Attestation signed by Nikita Beltran DO at [...] Beltran DO EMERGENCY DEPARTMENT - VISIT NOTE HISTORY OF PRESENT ILLNESS Chief Complaint Patient presents with brain Patient is transfer from [facility]. 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 He has been reporting increased fatigue The history is provided by the Patient. Anurag Joseph is a 48 year old male with no known PMH presenting to the ED as a transfer from [facility] for NSGY. Patient presented to the ED [...] any confusion or syncope. 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 PHYSICAL EXAM BP 124/88 (BP Location: right arm) Pulse 100 Temp 97.9 ???F (36.6 ???C) (Oral) Resp 16 Ht 6' 1" (1.854 m) Wt 218 lb 1.6 oz [...] hypoxia [JT] 0026 [place] [facility] [place] [JT] 0153 [...] 5. Report called to Dr. Valenzuela, medicine, 0315 (09/14/24 0320) The patient has received [...] ask questions. Abiola De La Cruz MD CONSULTS Observed: 09/14/2024 12:19 AM Status: COMPLETED Source: [facility] NEUROSURGERY CONSULT Patient Name: Anurag Joseph PRIMARY [...] edema for which patient was transferred to [facility] and NSGY was consulted. SH: Denies tobacco, [...] Metabolic Panel No lab values to display. Hepatic/Biliary/Pancreas No lab values to display. Cardiac [...] edema for which patient was transferred to [facility] and NSGY was consulted. RECOMMENDATIONS: -Medicine admission -MRI head wwo -CT CAP -Hold all thinners -Remainder per primary Above plan was discussed with Dr. Dupree (staff) CHENG Carter-CNeurosurgery Pager: [phone] Split/Shared Documentation I approve the management plan for this patient and take responsibility for the plan as documented. Independent Interpretation of Tests Performed by Another Physician/WILLY: I personally performed, reviewed, and interpreted CTH with findings of brain mass. CHENG Carter-C ALLERGIES No Allergies Records Found ENCOUNTERS ADMIT/DISCHARGE ACCOUNT NUMBER ADMITTING ENCOUNTER CLASS LOCATION SOURCE 07/15/2025 [id number] Ambulatory [facility] 07/10/2025 [id number] STACY CROFT Inpatient Encounter [facility] 07/10/2025 [id number] STACY CROFT Inpatient Encounter [facility] 07/10/2025 [id number] STACY CROFT Inpatient Encounter [facility] 07/10/2025 [id number] STACY CROFT Inpatient Encounter [facility] 07/09/2025/07/11/20 25 [id number] STACY CROFT [facility] 07/09/2025/07/09/20 25 [id number] Unknown Ambulatory [facility] 07/09/2025 [id number] STACY CROFT Inpatient Encounter [facility] 07/09/2025/07/12/20 25 [id number] STACY CROFT [facility]counter [facility]:[address] ARoom: AC6-204Bed: 1 [facility] 07/09/2025 [id number] STACY CROFT Inpatient Encounter [facility] 07/09/2025 [id number] STACY CROFT Inpatient Encounter [facility] 07/09/2025 [id number] STACY CROFT Inpatient Encounter [facility] 10/01/2024/10/02/20 24 [id number] Unknown Ambulatory [facility] 09/21/2024/09/21/20 24 [id number] DUPREE, KOSTAS Inpatient Encounter [facility] 09/21/2024/09/22/20 24 [id number] DUPREE, KOSTAS Inpatient Encounter [facility] Building:GC 5 WESTRoom: [id number]: 1 [facility] 09/17/2024/09/17/20 24 [id number] Unknown Ambulatory [facility] 09/15/2024 [id number] ATASSI, LINDA Inpatient Encounter [facility] 09/14/2024/09/15/20 24 [id number] ATASSI, LINDA Inpatient Encounter [facility] Building:GC 8 EASTRoom: AC8-506Bed: 1 [facility] 09/14/2024 [id number] Unknown Emergency [facility] 09/14/2024 [id number] ATASSI, LINDA Inpatient Encounter [facility] 09/14/2024 [id number] ATASSI, LINDA Inpatient Encounter [facility] PAYERS ENCOUNTER GUARANTOR PAYER SUBSCRIBER SOURCE 07/15/2025 ANURAG JOSEPHB: [place], [place] [address]Lro: () Primary Insurance:SELF PAY INSCOPolicy Number: Effective Date:[id number] Name:8 ANURAG DUNN: [id number] [facility] [place], [place] [address]Yau: (HP) () [facility] 07/10/2025 ANURAG ZHOUB: [facility] [place] [address]Uvn: () Primary Insurance:BLUE CROSS/HMO,PPO,POSPo licy Number: [id number] ve Date:2025-06-17 KARYNA ZHOUB: [id number] [place] [address]Pon: (HP) [facility] 07/10/2025 Secondary Insurance:BLUE CROSS/HMO,PPO,POSPo licy Number: [id number] Date:2025-06-17 KARYNA ZHOUB: [id number] [place] [address]Zqk: (HP) [facility] 07/10/2025 ANURAG ZOHUB: [place] [address]Npw: (HP) Primary Insurance:BLUE CROSS/HMO,PPO,POSPo licy Number: [id number] Date:2025-06-17 KARYNA ZHOUB: [id number] [place] [address]Aui: (HP) [facility] 07/10/2025 Secondary Insurance:BLUE CROSS/HMO,PPO,POSPo licy Number: [id number] Date:2025-06-17 KARYNA ZHOUB: [id number] [place] [address]Jaa: (HP) [facility] 07/10/2025 ANURAG JOSEPHDOB: [place] [address]Bih: (HP) Primary Insurance:BLUE CROSS/HMO,PPO,POSPo licy Number: [id number] Date:2025-06-17 KARYNA ZHOUB: [id number] [place] [address]Iij: (HP) [facility] 07/10/2025 Secondary Insurance:BLUE CROSS/HMO,PPO,POSPo licy Number: [id number] Date:2025-06-17 KARYNA ZHOUB: [id number] [place] [address]Ubz: (HP) [facility] 07/10/2025 ANURAG ZHOUB: [place] [address]Tbv: (HP) Primary Insurance:BLUE CROSS/HMO,PPO,POSPo licy Number: [id number] ve Date:2025-06-17 KARYNA ZHOUB: [id number] [place] [address]Geo: (HP) [facility] 07/10/2025 Secondary Insurance:BLUE CROSS/HMO,PPO,POSPo licy Number: [id number] ve Date:2025-06-17 KARYNA ZHOUB: [id number] [place] [address]Dpt: (HP) [facility] 07/09/2025 ANURAG ZHOUB: [id number] [place] [address]Yzm: (HP) Primary Insurance:BLUE CROSS/HMO,PPO,POSPo licy Number: [id number] ve Date:2025-06-17 KARYNA ZHOUB: [id number] [place] [address]Ymu: (HP) [facility] 07/09/2025 Secondary Insurance:BLUE CROSS/HMO,PPO,POSPo licy Number: [id number] Date:2025-06-17 KARYNA ZHOUB: [id number] [place] [address]Buk: (HP) [facility] 07/09/2025 ANURAG DUNN: [place] [address]Wmr: (HP) Primary Insurance:BLUE CROSS/HMO,PPO,POSPo licy Number: [id number] ve Date:2025-06-17 KARYNA ZHOU: [id number] [facility] 07/09/2025 Secondary Insurance:BLUE CROSS/HMO,PPO,POSPo licy Number: [id number] Date:2025-06-17 KARYNA DUNN: [id number] [facility] 07/09/2025 ANURAG ZHOUB: [place] [address]Ele: (HP) Primary Insurance:BLUE CROSS/HMO,PPO,POSPo licy Number: [id number] ve Date:2025-06-17 KARYNA DUNN: [id number] [facility] 07/09/2025 Secondary Insurance:BLUE CROSS/HMO,PPO,POSPo licy Number: [id number] ve Date:2025-06-17 KARYNA DUNN: [id number] [facility] 07/09/2025 ANURAG ZHOUB: [place] [address]Amv: (HP) Primary Insurance:BLUE CROSS/HMO,PPO,POSPo licy Number: [id number] Date:2025-06-17 KARYNA DUNN: [id number] [place] [address]Amq: (HP) [facility] 07/09/2025 Secondary Insurance:BLUE CROSS/HMO,PPO,POSPo licy Number: [id number] ve Date:2025-06-17 KARYNA ZHOUB: [id number] [place] [address]Ydq: (HP) [facility] 07/09/2025 ANURAG ZHOUB: [place] [address]Bah: (HP) Primary Insurance:BLUE CROSS/HMO,PPO,POSPo licy Number: [id number] ve Date:2025-06-17 KARYNA ZHOUB: [id number] [facility] 07/09/2025 Secondary Insurance:BLUE CROSS/HMO,PPO,POSPo licy Number: [id number] ve Date:2025-06-17 KARYNA ZHOUB: [id number] [facility] 07/09/2025 ANURAG ZHOUB: [place] [address]Yrs: (HP) Primary Insurance:BLUE CROSS/HMO,PPO,POSPo licy Number: [id number] Date:2025-06-17 KARYNA ZHOUB: [id number] [facility] 07/09/2025 Secondary Insurance:BLUE CROSS/HMO,PPO,POSPo licy Number: [id number] ve Date:2025-06-17 KARYNA ZHOUB: [id number] [facility] 07/09/2025 ANURAG ZHOUB: [id number] [place] [address]Nyd: (HP) Primary Insurance:BLUE CROSS/HMO,PPO,POSPo licy Number: [id number] ve Date:2025-06-17 KARYNA ZHOUB: [id number] [facility] 07/09/2025 Secondary Insurance:BLUE CROSS/HMO,PPO,POSPo licy Number: [id number] ve Date:2025-06-17 KARYNA DUNN: [id number] [facility] 10/01/2024 ANURAG ZHOUB: [place] [address]Tkh: (HP) Primary Insurance:[employer] HMOPolicy Number: [id number] ve Date:2024-08-17 KARYNA ZHOUB: [id number] [place], [place] [address]Hhl: (HP) [facility] 10/01/2024 Secondary Insurance:[employer] PATH[employer] HMOPolicy Number: [id number] ve Date:2024-08-17 KARYNA ZHOUB: [id number] [place] [address]Tcc: (HP) [facility] 09/21/2024 ANURAG ZHOUB: [place] [address]Eoe: (HP) Primary Insurance:[employer] PATH[employer] HMOPolicy Number: [id number] ve Date:2024-08-17 KARYNA ZHOUB: [id number] [place] [address]Ima: (HP) [facility] 09/21/2024 Secondary Insurance:[employer] PATH[employer] HMOPolicy Number: [id number] ve Date:2024-08-17 KARYNA ZHOUB: [id number] [place] [address]Kyr: (HP) [facility] 09/21/2024 ANURAG ZHOUB: [place] [address]Kah: (HP) Primary Insurance:[employer] HMOPolicy Number: [id number] ve Date:2024-08-17 KARYNA ZHOUB: [id number] [place], [place] [address]Aob: (HP) [facility] 09/21/2024 Secondary Insurance:[employer] HMOPolicy Number: [id number] ve Date:2024-08-17 KARYNA ZHOUB: [id number] [place], [place] [address]Ljn: (HP) [facility] 09/17/2024 ANURAG ZHOUB: [place] [address]Aej: (HP) Primary Insurance:[employer] PATH[employer] HMOPolicy Number: [id number] ve Date:2024-08-17 KARYNA ZHOUB: [id number] [place] [address]Xao: (HP) [facility] 09/15/2024 ANURAG ZHOUB: [place], [place] [address]Orh: (HP) Primary Insurance:[employer] HMOPolicy Number: [id number] ve Date:2024-08-17 KARYNA ZHOUB: [id number] [place], [place] [address]Vjv: (HP) [facility] 09/14/2024 ANURAG ZHOUB: [place] [address]Lfu: (HP) Primary Insurance:[employer] HMOPolicy Number: [id number] ve Date:2024-08-17 KARYNA ZHOUB: [id number] [place], [place] [address]Qcf: (HP) [facility] 09/14/2024 ANURAG ZHOU: [place] [address]Buc: (HP) Primary Insurance:[employer] PATHWAY OPolicy Number: [id number] ve Date:2024-08-17 KARYNA ZHOUB: [id number] [place] [address]Mvr: (HP) [facility] 09/14/2024 ANURAG ZHOUB: [place] [address]Opz: (HP) Primary Insurance:[employer] PATHWAY OPolicy Number: [id number] ve Date:2024-08-17 KARYNA ZHOUB: [id number] [place] [address]Ohr: (HP) [facility] 09/14/2024 ANURAG ZHOUAnthony: [place] [address]Lhn: (HP) Primary Insurance:[employer] PATHWAY OPolicy Number: [id number] Date:2024-08-17 KARYNA ZHOUAnthony: [id number] [place] [address]Snv: (HP) [facility]
== END | disposition home or self-care (01) ==
LOC: OPMRI 11:05
PROVIDERS: PCP Internal Medicine Medical Oncology; Referring Provider Nurse Practitioner Family; Visit Provider Nurse Practitioner Family
DX: C71.9 Malignant neoplasm of brain, unspecified (principal)
CPT/HCPCS: 70553; A9575

== ENCOUNTER 2025-08-05 09:32 | Day surgery (SDC) | payer OTHER, SELFPAY ==
--- NOTE | 2025-08-01 12:38 | PAT.ANESEVAL ---
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 When Was Last Pacemaker Check QUESTION #4 FULL TEXT: You/Your Family Experience fever (hyperthermia) with Anesthesia Last Oral Intake Last Oral intake: Last Oral Intake NPO since Meds taken in AM with sips of water? Meds patient instructed to take am of surgery PONV PONV - lawn care professional: PONV - lawn care professional Female Yes 08/01/25 08:24 HX of Motion Sickness No 08/01/25 08:24 HX of N/V After Surgery No 08/01/25 08:24 Non-Smoker Yes 08/01/25 08:24 Duration of Surgery greater No 08/01/25 08:24 than 60 minutes Number of Risk Factors 2 08/01/25 08:24 PONV Score Moderate Risk 08/01/25 08:24 Height & Weight Height & Weight: Anesthesia: Height & Weight Height 6 ft 1 in 07/18/25 10:57 Respiratory Assessment Respiratory Assessment - lawn care professional: Respiratory Tract Infection Hx - lawn care professional Hx Respiratory Tract Infection No 08/01/25 08:24 STOP Sleep Apnea STOP Sleep Apnea - lawn care professional: STOP Sleep Apnea - lawn care professional Hx Hypertension No 08/01/25 08:24 Hx Sleep Apnea No 08/01/25 08:24 CPAP BIPAP Do you snore loudly (louder No 08/01/25 08:24 than talking or can be heard Do you often feel tired/ No 08/01/25 08:24 fatigued/ sleepy during daytime? Has anyone observed you stop No 08/01/25 08:24 breathing during sleep? STOP Results Negative 08/01/25 08:24 QUESTION #5 FULL TEXT : Do you snore loudly (louder than talking or can be heard through closed doors)? 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 Specify any problems Hx of Preganancy in last 3 N/A 08/01/25 08:24 Months Nurse Filling Out Transfusion [email or web address] 08/01/25 08:24 & Questions: Date: 08/01/25 08/01/25 08:24 Time: 08:28 08/01/25 08:24 Patient unable to answer at this time (ie. confused, unrespo /Reproduction History /Reproductive History - lawn care professional: /Reproductive Hx- lawn care professional Hx Now Gestational Age (in weeks): EDC: Hx Hx Para Hx Section SAB PFSH Medical History (Updated 08/01/25 @ 09:[address] Chavez Mcfadden MD) Seizure Weakness of right arm Wears glasses Cancer Walker as ambulation aid Ambulates with cane Non-smoker History of edema DVT (deep venous thrombosis) Frequent falls Pneumonia Headache Long-term current use of steroids Encounter for education Need for pneumocystis prophylaxis Status post stereotactic brain biopsy Glioblastoma multiforme History of traumatic brain injury Home Medications ?Medication ?Instructions ?Recorded ?Last Taken ?Type acetaminophen 325 mg tablet 325 mg PO ONCE PRN pain 10/05/24 Unknown History (Tylenol) ondansetron 4 mg disintegrating 4 mg PO Q8H PRN nausea and 10/23/24 Unknown Rx tablet vomiting #30 tabs apixaban 5 mg tablet (Eliquis) 5 mg PO BID #60 tabs 01/29/25 05/03/25 Rx dexamethasone 2 mg tablet 2 mg PO QDAY #30 tabs 04/18/25 05/07/25 08:00 Rx lidocaine-prilocaine 2.5 %-2.5 % 1 applic topical ONCE PRN port 04/22/25 Unknown Rx topical cream access 30 days #30 grams levetiracetam 1,000 mg tablet 1,000 mg PO BID 07/16/25 Unknown History (Keppra) sennosides 8.6 mg-docusate sodium 1 tab-cap PO QHS 07/31/25 Unknown History 50 mg capsule (Senna Plus) Allergy/AdvReac Type Severity Reaction Status Date / Time No Known Allergies Allergy Verified 08/01/25 08:23 Family History Father Parkinson's disease Social History Smoking Status: Never smoker alcohol intake: current alcohol intake frequency: holidays/special occasions only substance use type: does not use Audit: Pertinent Findings Pertinent Findings EKG Perinent findings: EKG 07/08/2025. Sinus tachycardia. Possible left atrial enlargement. Possible inferior infarct, age undetermined Recommendation Anesthesia Recommendation Anesthesia recommendation: OPTIMIZED for anesthesia
[2025-08-05] VITALS (9 sets, daily range): BP systolic 120–131; BP diastolic 79–85; PULSE 58–67; RESP 18; TEMP 36.1; O2SAT 94–100; BMI 34.4
--- NOTE | 2025-08-05 09:48 | PRE.ANES_ITS ---
ASA Classification* ASA Classification ASA Classification: 3 Assessment & Plan Anesthesia* Anesthesia Assessment Anesthesia Assessment: Discussed sedation and/or anesthesia options, risks, benefits, and alternatives with patient/parents/legal guardian/POA. Questions invited. The patient/parents/legal guardian/POA seems to understand and agrees to proceed with anesthesia plan. Reviewed the physical assessment, medical history, allergy history and patient home medications list prior to surgery/procedure/anesthetic and documented any changes. Performed airway and anesthesia risk assessments. Anesthesia Type Anesthesia Type: MAC Anesthesia Focused Assessment* Airway Assessment Mouth opens: >3 cm Mallampati Score: II Labs Anesthesia Preop lab: CBC WBC, (4.4-11.0) 7.8 K/mm3 07/18/25, 09:17 RBC, (4.6-6.2) 3.95 M/mm3 L 07/18/25, 09:17 Hgb, (13.0-16.5) 13.7 g/dL 07/18/25, 09:17 Hct, (40-54) 41.0 % 07/18/25, 09:17 Plt Count, (150-450) 256 K/mm3 07/18/25, 09:17 CHEMISTRY Potassium, (3.3-5.1) 3.4 mmol/L 07/18/25, 09:17 Sodium, (133-145) 144 mmol/L 07/18/25, 09:17 Magnesium, (1.5-2.2) 2.2 mg/dL 07/08/25, 12:15 BUN, (4-19) 20 mg/dL H 07/18/25, 09:17 Creatinine, (0.70-1.20) 0.92 mg/dL 07/18/25, 09:17 Glucose, (70-99) 87 mg/dL 07/18/25, 09:17 TSH, (0.358-3.740) 0.338 uIU/mL L 09/13/24, 16:30 COAG PT, (11.7-14.9) 14.9 SECONDS 07/08/25, 03:28 Pre-Assessment Diagnosis/Proposed Procedure Planned Operative Procedure(s): REMOVAL OF RIGHT CHEST PORT, INSERTION OF LEFT VASCULAR CHEST PORT Anesthesia History 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 When Was Last Pacemaker Check QUESTION #4 FULL TEXT: You/Your Family Experience fever (hyperthermia) with Anesthesia Last Oral Intake Last Oral intake: Last Oral Intake NPO since Meds taken in AM with sips of water? 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 Female Yes 08/01/25 08:24 HX of Motion Sickness No 08/01/25 08:24 HX of N/V After Surgery No 08/01/25 08:24 Non-Smoker Yes 08/01/25 08:24 Duration of Surgery greater No 08/01/25 08:24 than 60 minutes Number of Risk Factors 2 08/01/25 08:24 PONV Score Moderate Risk 08/01/25 08:24 Height & Weight Height & Weight: Anesthesia: Height & Weight Height 6 ft 1 in 07/18/25 10:57 Respiratory Assessment Respiratory Assessment - fishing rod assembler: Respiratory Tract Infection Hx - fishing rod assembler Hx Respiratory Tract Infection No 08/01/25 08:24 STOP Sleep Apnea STOP Sleep Apnea - fishing rod assembler: STOP Sleep Apnea - fishing rod assembler Hx Hypertension No 08/01/25 08:24 Hx Sleep Apnea No 08/01/25 08:24 CPAP BIPAP Do you snore loudly (louder No 08/01/25 08:24 than talking or can be heard Do you often feel tired/ No 08/01/25 08:24 fatigued/ sleepy during daytime? Has anyone observed you stop No 08/01/25 08:24 breathing during sleep? STOP Results Negative 08/01/25 08:24 QUESTION #5 FULL TEXT : Do you snore loudly (louder than talking or can be heard through closed doors)? 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 Specify any problems Hx of Preganancy in last 3 N/A 08/01/25 08:24 Months Nurse Filling Out Transfusion [email or web address] 08/01/25 08:24 & Questions: Date: 08/01/25 08/01/25 08:24 Time: 08:08/01/25 08:24 Patient unable to answer at this time (ie. confused, unrespo /Reproduction History /Reproductive History - fishing rod assembler: /Reproductive Hx- fishing rod assembler Hx Now Gestational Age (in weeks): EDC: Hx Hx Para Hx Section SAB Active Medications Active Medications: Current Medications Generic Name Dose Route Start Last Admin Trade Name Freq PRN Reason Stop Dose Admin Cefazolin Sodium 2 gm/ Sodium 110 mls @ 200 mls/hr 08/05/25 11:00 Chloride IV 08/05/25 11:32 INTRAOP ONE Lactated Ringer's 1,000 mls @ 15 mls/hr 08/05/25 09:45 IV .Q48H ANGELITA PFSH Medical History Seizure Weakness of right arm Wears glasses Cancer Walker as ambulation aid Ambulates with cane Non-smoker History of edema DVT (deep venous thrombosis) Frequent falls Pneumonia Headache Long-term current use of steroids Encounter for education Need for pneumocystis prophylaxis Status post stereotactic brain biopsy Glioblastoma multiforme History of traumatic brain injury Home Medications ?Medication ?Instructions ?Recorded ?Last Taken ?Type acetaminophen 325 mg tablet 325 mg PO ONCE PRN pain Unknown History (Tylenol) ondansetron 4 mg disintegrating 4 mg PO Q8H PRN nausea and 10/23/24 Unknown Rx tablet vomiting #30 tabs apixaban 5 mg tablet (Eliquis) 5 mg PO BID #60 tabs 05/03/25 Rx dexamethasone 2 mg tablet 2 mg PO QDAY #30 tabs 05/07/25 08:00 Rx lidocaine-prilocaine 2.5 %-2.5 % 1 applic topical ONCE PRN port 04/22/25 Unknown Rx topical cream access 30 days #30 grams levetiracetam 1,000 mg tablet 1,000 mg PO BID 07/16/25 Unknown History (Juan) sennosides 8.6 mg-docusate sodium 1 tab-cap PO QHS Unknown History 50 mg capsule (Senna Plus) Allergy/AdvReac Type Severity Reaction Status Date / Time No Known Allergies Allergy Verified 08/01/25 08:23 Family History Father Parkinson's disease Social History Smoking Status: Never smoker alcohol intake: current alcohol intake frequency: holidays/special occasions only substance use type: does not use Review of Systems (Anesthesia) ROS Narrative System reviewed and no additional complaints, except as documented.
--- NOTE | 2025-08-05 10:41 | HP.PCM_ITS ---
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 Is patient in pain?: No Allergies No Known Allergies Allergy (Verified 08/01/25 08:23) Medications ?Medication ?Instructions ?Recorded ?Confirmed ?Type acetaminophen 325 mg tablet 325 mg PO ONCE PRN pain 10/05/24 5 History (Tylenol) ondansetron 4 mg disintegrating 4 mg PO Q8H PRN nausea and 10/23/2407/17 Rx tablet vomiting #30 tabs apixaban 5 mg tablet (Eliquis) 5 mg PO BID #60 tabs 01/29/25 08/01/25 R x dexamethasone 2 mg tablet 2 mg PO QDAY #30 tabs 04/18/25 08/01/25 Rx lidocaine-prilocaine 2.5 %-2.5 % 1 applic topical ONCE PRN port 04/22/25 08/01/25 Rx topical cream access 30 days #30 grams levetiracetam 1,000 mg tablet 1,000 mg PO BID 07/16/25 08/01/25 Histor y (Keppra) sennosides 8.6 mg-docusate sodium 1 tab-cap PO QHS 07/31/25 08/01/25 Histo ry 50 mg capsule (Senna Plus) Have you fallen in the past year?: No PFSH Medical History (Updated 08/01/25 @ 09:[address] Chavez Mcfadden MD) Seizure Weakness of right arm Wears glasses Cancer Walker as ambulation aid Ambulates with cane Non-smoker History of edema DVT (deep venous thrombosis) Frequent falls Pneumonia Headache Long-term current use of steroids Encounter for education Need for pneumocystis prophylaxis Status post stereotactic brain biopsy Glioblastoma multiforme History of traumatic brain injury Family History Father Parkinson's disease Social History Smoking Status: Never smoker alcohol intake: current alcohol intake frequency: holidays/special occasions only substance use type: does not use HPI HPI HPI: Patient is a 49-year-old male here for infection of his right chest port. I remove the suture in the office today that I placed last week and the patient has been on antibiotics for a week. Upon removing the suture the area opened right back up and there was purulent drainage. ROS General General: Yes fatigue; No weight change, appetite, colon cancer, breast cancer or weakness HEENT HEENT: No difficulty swallowing, eye injury, eye surgery, swollen glands or hoarseness Endo Endocrine: No thyroid disease, diabetes mellitus, thyroid cancer, Hair loss, heat intolerance or cold intolerance Skin Skin: No rash or changing moles Breast Breast: No left breast lump, right breast lump, nipple discharge, breast pain, abnormal mammogram, abnormal US or breast enlargement Musc Musculoskeletal: No back problems, arthritis, rheumatoid arthritis, gout or joint pain Cardio Cardiovascular: No murmur, pacemaker, heart disease, atrial fibrillation, high blood pressure, heart attack, heart stent, palpitations, shortness of breath with exertion or chest pain Psych Psychiatric: No depression, anxiety or hearing voices Resp Respiratory: No shortness of breath, No sleep apnea, No cough, No COPD, No asthma, No emphysema and No wheezing Gastro Gastrointestinal: No abdominal pain, No nausea or vomiting, No diarrhea, No constipation, No blood in stool, No acid reflux, No hemorrhoids, No ulcers, No gallbladder problem and No black,tarry stools Jimmy Hematologic: Yes blood thinners, No blood disorders, No bleeding, No anemia and Yes blood clots Neuro Neurologic: No system reviewed and no additional complaints, except as documented, No as per HPI, No abnormal gait, No abnormal hearing, No abnormal movements, No abnormal speech, No behavioral changes, No burning sensations, No confusion, No convulsions, No disequilibrium, No dizziness, No localized weakness, No frequent falls, No headache(s), No lack of coordination, No loss of vision, No memory loss, Yes numbness, No other visual disturbances, No radicular pain, No restless legs, No sensory deficit, No syncope, Yes tingling, No tremor(s), No weakness and No other Exam Const General: cooperative Orientation: alert and oriented x3 HENMT Head: normal to inspection Neck Neck: normal visual inspection and full ROM Chest Chest palpation & inspection: normal inspection of the chest Resp Effort & Inspection: normal respiratory effort Auscultation: clear to auscultation bilaterally Cardio Rate: regular rate Rhythm: regular rhythm GI Inspection: non-distended Palpation: soft and nontender Skin General: no rashes or lesions noted Neuro General: patient alert and patient oriented x3 Extrem General: full ROM Psych Appearance: grossly normal Mental Status: mental status grossly normal Assessment and Plan Assessment and Plan (1) Infection due to Port-A-Cath: Status: Acute Plan: The patient's catheter appears to be infected. He is not septic or febrile or having chills. It seems to be superficial and mild. Either way I do not think that this port will be usable. I recommend removing the right chest port and placing a new left chest port in the operating room. I discussed this with him in detail. I discussed the risks of the procedure such as bleeding, infection, pneumothorax, line infection or DVT. Patient understands the risks and would like to proceed with left chest port placement and right chest port removal. I have him on the schedule for Tuesday. We will leave him accessed for his chemotherapy afterwards. Chavez Mcfadden MD Pager: [facility] [address] [place] [address], [address] [place] [address] Office: I have examined the patient and the H&P has been reviewed. There are no clinical changes since date of exam.
[2025-08-05] MEDS: Lactated Ringers 1,000 ML 15 ML IV (10:45)
--- NOTE | 2025-08-05 11:00 | MISC_PTH ---
PATIENT: LAMINE JOSEPH LOC: [facility] – [place] U#:[id number] AGE/SX: 49/M ROOM: RE08/05/[address]: Dr. Chavez Mcfadden MD : 1975 BED: DIS: 08/05/2025 SPEC #: [id number] RECD: 08/05/25 13:40 STATUS: DIONICIO MAUREEN #: [id number] TAYLOR: 08/05/25 11:[address]: Chavez Mcfadden DEPT: SURGICAL PATHOLOGY RECD BY: Milton Olivier ENTERED: 08/05/25 15:54 SP TYPE: MISC OTHR DR: Dr. Geoff Dallas MD No Primary Care Phys Tissues: A - FOREIGN BODY Procedures: Surgery Specimen Level I HEADER OPERATION: Insertion, left vascular port and right chest port removal PRE-OP DIAGNOSIS: Infection due to Port-A-Cath TISSUE SUBMITTED: A- Right port MICROSCOPIC DIAGNOSIS A. Right port-a-cath, removal: Port-a-cath: * business dean identified (gross examination only) MICROSCOPIC DESCRIPTION Slides are not reviewed. GROSS DESCRIPTION A. Received in formalin labeled with the patient's name and date of . Designated as right port-gross is a 2.5 x 2.2 x 1.4 cm triangular, purple portion of hardware inscribed with BARD, 0256 with an attached white synthetic tube, 23.4 cm in length by 0.3 cm in diameter and inscribed with 5, 10, 15, 20. No sections are submitted. The specimen is for gross examination only. [place] 08/05/2025 CPT:27876
[2025-08-05] MEDS: Cefazolin 1 GM/5 ML Vial 2 GM IV (11:26)
[2025-08-05] MEDS: Midazolam 2 MG/2 ML Syringe IV (11:26)
[2025-08-05] MEDS: Lidocaine 1% (5 ml sdv) 5 ML Vial 8 ML IV (11:34)
[2025-08-05] MEDS: Lidocaine 1% /Epi 1:100 (20ml) 20 ML Vial (11:38)
--- NOTE | 2025-08-05 12:08 | PCM.OPRPT ---
Operative Report (Standard) Operative Information Date of Procedure: 08/05/25 Pre-Operative Diagnosis: Infected right chest port Post-Operative Diagnosis: Same Surgery/Procedure Performed: 1. Removal of right sided chest port 2. Ultrasound fluoroscopy guided left chest port placement utilizing left IJ inside sales recruiter: No Type of Anesthesia: Local MAC RN Documented Start/Stop Times: Operation Date: 08/05/25 11:00 Case Time Into Pre-Op 08/05/25 09:36 Out of Pre-Op 08/05/25 11:25 Anesthesia Start 08/05/25 11:26 Into Room 08/05/25 11:26 Procedure Start 08/05/25 11:38 Procedure End 08/05/25 12:00 Anesthesia End 08/05/25 12:06 Out of Room 08/05/25 12:06 Procedure Start Time: 11:38 Procedure Stop Time: 12:00 Select all DRAINS/GRAFTS/IMPLANTS that apply: Implanted device Implanted device details: 8 [place] PowerPort in the left Estimated Blood Loss: 5 Specimen collected: Yes Description of specimen(s) removed: Right sided port Description of surgery: After obtaining informed consent patient was brought back to the operating room MAC anesthesia was induced. The right chest was prepped and draped. The prior incision was injected with local anesthetic and then incised with a scalpel. The port easily was removed and the pocket was irrigated and then loosely closed with 2 interrupted 3-0 nylon sutures. Dressing was applied. The left chest and neck were prepped in normal sterile fashion. Ultrasound was used to evaluate both IJs and the left IJ was selected. Next, using a needle, the left IJ was accessed and a guidewire was passed on into the superior vena cava under fluoroscopy guidance. A small incision was made over the puncture site and the dilator introducer was placed over the guidewire. Next this was capped and the pocket was made for the port. 1% lidocaine with epinephrine was injected in the proposed port site. An incision was made with scalpel. Electrocautery was used to make a pocket under the skin and subcutaneous tissue. Hemostasis was obtained. Next, the catheter was tunneled up to the neck incision site and placed through the introducer. The peel-away introducer was removed and the position of the catheter was confirmed on fluoroscopy. Next, the catheter was trimmed and attached to the port with the locking device. Interrupted 2-0 Vicryl sutures were used to anchor the port to the chest wall and then the port was placed inside the pocket. The pocket was then flushed with saline and the port irrigated with saline. There was good blood return and the port flushed easily. Next, heparin was injected into the port. The skin was closed with subcutaneous interrupted 3-0 Vicryl sutures. A single 3-0 Vicryl sutures placed under the skin at the neck incision site. Steri-Strips were placed as well as op sites. The port was then accessed and flushed with heparinized saline. Patient tolerated procedure well, was taken to PACU in stable condition. Chest x-ray will be obtained. Surgical Findings: Infected right chest port Complications Complications: No
--- NOTE | 2025-08-05 12:10 | EX.PCM.DISCH ---
Discharge Instructions Procedure Port-A-Cath Diet Discharge Diet: Light diet - advance as tolerated (Pain medication may cause nausea. You should typically eat light foods as you take your pain medication.) Activity Discharge Activity: Return to Normal Activity and May Shower (with your bandage in place in 1-2 days after surgery. DO NOT SHOWER WHEN YOUR PORT IS ACCESSED.) Additional Activity Instructions:: Resume Eliquis Tuesday Dressing / Incision Call your doctor if your incision/area has: Continuous Slow Oozing, Sudden Increased Bleeding, Increased Pain/ Swelling, Increased Redness and Foul Smelling Discharge Call your doctor if you observe: Fever of 101 or Higher Remove Dressing in: 2 days Cleanse incision/area with: Soap & Water Follow Up Care Please Follow Up With: Chavez Mcfadden MD When: Call for 1 week follow up appt. [phone] Test Results: Test results from this visit will be discussed in further detail at your follow-up appointment, if applicable. Discharge Plan Admission Attending Provider: Chavez Mcfadden Primary Care Provider: Care Physician,No Primary Consulting Providers: Geoff Dallas Instructions Print Language: Tunisian Discharge Orders/Prescriptions Prescriptions: No Action acetaminophen [Tylenol] 325 mg tablet 325 mg PO ONCE PRN (Reason: pain) ondansetron 4 mg tablet,disintegrating 4 mg PO Q8H PRN (Reason: nausea and vomiting) Qty: 30 1RF lidocaine-prilocaine 2.5-2.5 % cream 1 applic topical ONCE PRN (Reason: port access) 30 Days Qty: 30 2RF levetiracetam [Keppra] 1,000 mg tablet 1,000 mg PO BID Senna Plus 8.6-50 mg capsule 1 tab-cap PO QHS Eliquis 5 mg tablet 5 mg PO BID Qty: 60 5RF dexamethasone 2 mg tablet 2 mg PO QDAY Qty: 30 3RF Referrals / Follow Up: Care Physician,No Primary [Primary Care Provider, Medical] Disposition Disposition (needs filled in before D/C Order can be placed): Home, Self Care
--- NOTE | 2025-08-05 12:20 | RAD_ITS ---
PROCEDURE: CXR FOR LINE PLACEMENT 08/05/2025 REASON FOR EXAM: LINE PLACEMENT TECHNIQUE: Procedure Code: [id number] Modality: DX Procedure: CXR FOR LINE PLACEMENT COMPARISON: Prior study dated July 08, 2025. FINDINGS: A left-sided port a catheter is seen with the tip in the right atrium. Increased markings at the lung bases suggestive of bibasilar atelectasis. RAD/CXR for Line Placement IMPRESSION: The tip of the left port a catheter is in the right atrium. Findings suggestive of bibasilar linear atelectasis. Reading Location: [place] [address]
--- NOTE | 2025-08-05 14:06 | PCM.POST.ANE ---
Anesthesia: Postop Eval I Current Vital Signs Temperature: 97 F Pulse Rate: 67 Blood Pressure: 127/83 Respiratory Rate: 18 Pulse Ox: 94 Oxygen Delivery Method: Room Air Assessment Airway patent: Yes Spontaneous unlabored respirations: Yes Mental status: Awake nausea: No Vomiting: No Anesthesia Complication: No Fluid Hydration Crystalloid volume administer (ml): 50 Total IV fluid infused: 50 Progress Note Anesthesia document: Postop Eval 1 completed: Yes
--- NOTE | 2025-08-05 14:07 | PCM.POSTANE2 ---
Anesthesia Postop Eval I Sum Postop Eval Completion status Anesthesia document: Postop Eval 1 completed: Yes Anesthesia Postop Eval I Summary Anesthesia Postop Eval I Summary: Anesthesia Postop Eval I: Assessment Summary Airway patent Yes 08/05/25 14:07 Spontaneous unlabored Yes 08/05/25 14:07 respirations Mental status Awake 08/05/25 14:07 nausea No 08/05/25 14:07 Vomiting No 08/05/25 14:07 Anesthesia Postop Eval I: Fluid Summary Crystalloid volume administer 50 08/05/25 14:07 (ml) Colloids volume administered ( ml) Blood Product volume administered (ml) Total IV fluid infused 50 08/05/25 14:07 Anesthesia Postop Eval I: Summary Notes Anesthesia Complication No 08/05/25 14:07 Anesthesia Complication Comment: Post-operative progress note Anesthesia: Postop Eval II Evaluation Mental status: Awake Pain Level: 1 nausea: No Vomiting: No
== END 2025-08-05 13:47 | disposition home or self-care (01) ==
LOC: SDC 09:34 → AC 09:40
PROVIDERS: Referring Provider Surgery; Visit Provider Surgery
PROC: (CPT 36590; principal; 2025-08-05 10:45)
DX: T80.212A Local infection due to central venous catheter, initial encounter (principal); Z86.718 Personal history of other venous thrombosis and embolism; Z79.01 Long term (current) use of anticoagulants; X58.XXXA Exposure to other specified factors, initial encounter
CPT/HCPCS: 36590; 00400; 71045; 77001; 88300; C1788